=== PATIENT | female | born 1940 | race Caucasian/White ===

== ENCOUNTER 2017-08-20 15:56 | Outpatient (RCR) | payer MEDICARE, SELFPAY | END 2017-08-27 23:59 | LOC: DC 15:56 | PROVIDERS: Family Provider Internal Medicine; PCP Internal Medicine; Visit Provider Podiatrist Foot & Ankle Surgery | DX: E11.9 Type 2 diabetes mellitus without complications (principal); Z71.3 Dietary counseling and surveillance | CPT/HCPCS: G0109 ==

== ENCOUNTER 2017-10-30 15:52 | Outpatient (RCR) | payer MEDICARE, SELFPAY ==
[2017-10-30 17:00] LABS: International Normalized Ratio 2.3
[2017-10-30 17:07] LABS: AST(SGOT) 31 U/L (15-37); Alanine Aminotransfer ALT/SGPT 30 U/L (13-56); Albumin, Serum 3.1 g/dL (3.2-5.0); Alkaline Phosphatase 157 U/L (45-117); Bilirubin, Direct 0.15 mg/dL (0.00-0.30); Cholesterol 140 mg/dL (200); Globulin 4.1 g/dL (2.2-4.2); High Density Lipoprotein 38 mg/dL; Protein, Total 7.2 g/dL (6.4-8.2); Triglycerides 190 mg/dL; Very Low Density Lipoprotein 38 mg/dL (5-40)
== END 2017-10-30 16:00 | disposition home or self-care (01) ==
LOC: LAB 15:52
PROVIDERS: Family Provider Internal Medicine; PCP Internal Medicine; Visit Provider Internal Medicine Cardiovascular Disease
DX: Z95.2 Presence of prosthetic heart valve (principal); Z79.899 Other long term (current) drug therapy
CPT/HCPCS: 36415; 80061; 80076; 85610

== ENCOUNTER → 2017-10-31 10:28 | Outpatient (CLI) | payer MEDICARE, SELFPAY | PROVIDERS: Family Provider Internal Medicine; PCP Internal Medicine; Visit Provider Internal Medicine Cardiovascular Disease | DX: I25.10 Atherosclerotic heart disease of native coronary artery without angina pectoris (principal); R00.1 Bradycardia, unspecified | CPT/HCPCS: 93225; 93226 ==

== ENCOUNTER → 2017-11-25 15:00 | Outpatient (CLI) | payer MEDICARE, SELFPAY ==
[2017-11-25 15:31] LABS: Prothrombin Time Fingerstick 30.4 SEC (11.9-14.4)
== END ==
PROVIDERS: Family Provider Internal Medicine; PCP Internal Medicine; Visit Provider Internal Medicine Cardiovascular Disease
DX: Z95.2 Presence of prosthetic heart valve (principal)
CPT/HCPCS: 36416; 85610

== ENCOUNTER → 2017-12-01 09:21 | Outpatient (CLI) | payer MEDICARE, SELFPAY ==
[2017-12-01 10:05] LABS: Absolute Lymphocyte Count 0.93 X10^3/ul (0.83-4.51); Absolute Neutrophil Count 4.6 X10^3/uL (2.0-7.7); Basophil# 0.04 X10^3/uL; Basophil% 0.6 % (0-1); Eosinophil# 0.41 X10^3/uL; Eosinophils% 6.3 % (0-5); Hematocrit 36.3 % (37-47); Hemoglobin 11.8 g/dl (12.0-15.0); Lymphocyte # 0.93 X10^3/ul (4.0); Lymphocyte % 14.3 % (19-41); Mean Corp Hgb Conc 32.5 g/gl (32-36); Mean Corpuscular Hgb 26.5 pg (27.0-32.0); Mean Corpuscular Volume 81.4 fL (81-99); Mean Platelet Vol. 10.7 fl (6.2-12.0); Monocyte# 0.49 X10^3/uL; Monocyte% 7.5 % (0-10); Neutrophil # 4.63 X10^3/uL (2.7-7.7); Neutrophil % 71.3 % (47-70); Platelet Count 177 K/mm3 (150-450); RBC Distribution Width CV 15.7 % (11.6-14.6); RBC Distribution Width SD 46.1 fl (35.1-43.9); Red Blood Count 4.46 M/mm3 (4.2-5.4); White Blood Count 6.5 K/mm3 (4.4-11.0)
[2017-12-01 10:15] LABS: POSITIVE COUNT NO; POSITIVE DIFFERENTIAL NO; POSITIVE MORPHOLOGY NO
[2017-12-01 10:25] LABS: Protein, Urine (Random) 22.8 mg/dL (<11.9); Protein:Creat Ratio 270 mg/g CRE (0-200)
[2017-12-01 10:43] LABS: PTHIN 163.1 pg/mL (18.4-80.1)
[2017-12-01 10:49] LABS: Anion Gap 7 (5-15); BUN 60 mg/dL (7-18); BUN/Creat Ratio 24.4 RATIO (10-20); Calcium,Total 8.7 mg/dL (8.5-10.1); Chloride 106 mmol/L (98-107); Creatinine, Serum 2.46 mg/dL (0.55-1.02); EST Glomerular Filtration Rate 20 mL/min (>60); Est Glom Filt Rate - Afr Amer 25 mL/min (>60); Glucose 112 mg/dL (74-106); Magnesium 2.4 mg/dL (1.6-2.6); Potassium 4.3 mmol/L (3.5-5.1); Sodium Level 141 mmol/L (136-145)
[2017-12-01 11:00] LABS: Albumin, Serum 3.5 g/dL (3.2-5.0); BUN 59 mg/dL (7-18); BUN/Creat Ratio 24.5 RATIO (10-20); Calcium,Total 8.4 mg/dL (8.5-10.1); Chloride 107 mmol/L (98-107); Creatinine, Serum 2.41 mg/dL (0.55-1.02); EST Glomerular Filtration Rate 21 mL/min (>60); Est Glom Filt Rate - Afr Amer 25 mL/min (>60); Glucose 112 mg/dL (74-106); Potassium 4.3 mmol/L (3.5-5.1); Sodium Level 142 mmol/L (136-145)
== END ==
PROVIDERS: Internal Medicine Cardiovascular Disease; Family Provider Internal Medicine; PCP Internal Medicine; Visit Provider Internal Medicine Nephrology
DX: E11.22 Type 2 diabetes mellitus with diabetic chronic kidney disease (principal); N18.4 Chronic kidney disease, stage 4 (severe); N25.81 Secondary hyperparathyroidism of renal origin
CPT/HCPCS: 36415; 80048; 80069; 82570; 83735; 83970; 84156; 85025

== ENCOUNTER → 2017-12-01 12:14 | Outpatient (CLI) | payer MEDICARE, SELFPAY ==
--- NOTE | 2017-12-01 12:15 | ECHOD_ITS ---
Reason For Study: Dyspnea/SOB Procedure This was a 2D Doppler, Color Flow transthoracic echocardiogram. Exam performed in department. Left Ventricle Normal LV size. Moderate concentric left ventricular hypertrophy. D shaped septum in systole and diastole. Left ventricular systolic function is normal. The estimated ejection fraction is 60 %. Unable to assess diastolic dysfunction. No regional wall motion abnormalities noted. Right Ventricle Normal RV size. Normal systolic function. Atria The left atrium is mildly enlarged. Normal right atrium. Mitral Valve Stable appearing bioprosthetic mitral valve apparatus. Tricuspid Valve Normal tricuspid valve. Moderately severe (3+) tricuspid valve insufficiency. Pulmonary artery systolic pressure is 80 mmHg. Severe pulmonary hypertension. Aortic Valve Trisinus/trileaflet aortic valve. Mild focal aortic valve calcification. Pulmonic Valve Normal pulmonic valve. Mild-Moderate (1-2+) pulmonic valve insufficiency. Great Vessels Normal aortic root. The pulmonary artery is normal size. Inferior vena cava collapse with sniff. Pericardium/Pleural No pericardial effusion. MMode/2D Measurements & Calculations LVIDd: 4.1 cm IVSd: 1.6 cm Ao root diam: 3.0 cm LVIDs: 2.1 cm LVPWd: 1.4 cm RVDd: 3.5 cm FS: 47.5 % LAV(MOD-sp4): 83.1 ml LA A4 area: 24.4 cm2 RA A4 area: 20.8 cm2 Doppler Measurements & Calculations Lat Peak E' Mayito: 5.9 cm/sec Med Peak E' Mayito: 4.7 cm/sec MV V2 max: 255.4 cm/sec MV max P.1 mmHg MV V2 mean: 101.5 cm/sec MV mean P.9 mmHg MV V2 VTI: 76.1 cm MV P1/2t max mayito: 255.4 cm/sec Ao V2 max: 187.1 cm/sec LV V1 max: 108.3 cm/sec MV P1/2t: 99.9 msec Ao max P.0 mmHg LV V1 max P.7 mmHg MV dec slope: 749.0 cm/sec2 Ao V2 mean: 112.3 cm/sec LV V1 mean P.3 mmHg MVA(P1/2t): 2.2 cm2 Ao mean P.0 mmHg LV V1 mean: 71.1 cm/sec Ao V2 VTI: 43.7 cm LV V1 VTI: 27.6 cm TR max mayito: 433.9 cm/sec TR max P.3 mmHg Interpretation Summary Normal LV size. Moderate concentric left ventricular hypertrophy. D shaped septum in systole and diastole. Left ventricular systolic function is normal. The estimated ejection fraction is 60 %. Unable to assess diastolic dysfunction. Severe pulmonary hypertension. Compared to prior study, there is no significant change. Ordering Physician: Beto Dennis Referring Physician: Beto Dennis Performed By: Levon Fernandez RCS
== END ==
PROVIDERS: Family Provider Internal Medicine; PCP Internal Medicine; Visit Provider Internal Medicine Cardiovascular Disease
DX: I48.0 Paroxysmal atrial fibrillation (principal); E11.22 Type 2 diabetes mellitus with diabetic chronic kidney disease; N18.4 Chronic kidney disease, stage 4 (severe); N25.81 Secondary hyperparathyroidism of renal origin
CPT/HCPCS: 36415; 80048; 80069; 82570; 83735; 83970; 84156; 85025; 93306

== ENCOUNTER → 2017-12-23 08:00 | Outpatient (CLI) | payer MEDICARE, SELFPAY ==
[2017-12-23 14:58] LABS: Hemoglobin 11.1 g/dl (12.0-15.0); Mean Corp Hgb Conc 31.7 g/gl (32-36); Mean Corpuscular Hgb 26.1 pg (27.0-32.0); Mean Corpuscular Volume 82.4 fL (81-99); Mean Platelet Vol. 10.2 fl (6.2-12.0); Platelet Count 153 K/mm3 (150-450); RBC Distribution Width CV 15.9 % (11.6-14.6); RBC Distribution Width SD 48.3 fl (35.1-43.9); Red Blood Count 4.25 M/mm3 (4.2-5.4); White Blood Count 5.8 K/mm3 (4.4-11.0)
[2017-12-23 15:00] LABS: Scan Indicated on CBC? Y/N NO
[2017-12-23 15:02] LABS: Protein, Urine (Random) 18.2 mg/dL (<11.9); Protein:Creat Ratio 655 mg/g CRE (0-200)
[2017-12-23 15:32] LABS: Albumin, Serum 3.5 g/dL (3.2-5.0); BUN 49 mg/dL (7-18); BUN/Creat Ratio 18.6 RATIO (10-20); Calcium,Total 8.4 mg/dL (8.5-10.1); Chloride 103 mmol/L (98-107); Creatinine, Serum 2.63 mg/dL (0.55-1.02); EST Glomerular Filtration Rate 19 mL/min (>60); Est Glom Filt Rate - Afr Amer 23 mL/min (>60); Glucose 214 mg/dL (74-106); Phosphorus 3.2 mg/dL (2.5-4.9); Potassium 4.2 mmol/L (3.5-5.1); Sodium Level 137 mmol/L (136-145)
[2017-12-24 08:33] LABS: PTHIN 164.6 pg/mL (18.4-80.1)
== END ==
PROVIDERS: Family Provider Internal Medicine; PCP Internal Medicine; Visit Provider Internal Medicine Nephrology
DX: D64.9 Anemia, unspecified (principal); N17.9 Acute kidney failure, unspecified; N25.81 Secondary hyperparathyroidism of renal origin; E11.22 Type 2 diabetes mellitus with diabetic chronic kidney disease; N18.4 Chronic kidney disease, stage 4 (severe)
CPT/HCPCS: 36415; 80069; 82570; 83970; 84156; 85027

== ENCOUNTER 2017-12-23 14:03 | Outpatient (RCR) | payer MEDICARE, SELFPAY | END 2017-12-23 15:00 | disposition home or self-care (01) | LOC: LAB 14:03 | PROVIDERS: Family Provider Internal Medicine; PCP Internal Medicine; Visit Provider Internal Medicine Cardiovascular Disease | DX: Z95.2 Presence of prosthetic heart valve (principal) ==

== ENCOUNTER 2018-01-07 16:32 | Outpatient (RCR) | payer MEDICARE, SELFPAY ==
[2017-06-28 21:01] VITALS: BP 172/103
[2017-07-02 06:49] VITALS: BP 175/56; BP 176/70; BP 177/70
[2017-07-17 11:33] VITALS: BP 122/60; BMI 31.3
== END 2018-01-24 23:59 ==
LOC: DC 16:32
PROVIDERS: Family Provider Internal Medicine; PCP Internal Medicine; Visit Provider Podiatrist Foot & Ankle Surgery
DX: E11.9 Type 2 diabetes mellitus without complications (principal); Z71.3 Dietary counseling and surveillance
CPT/HCPCS: G0109

== ENCOUNTER 2018-01-07 20:55 | Observation (INO) | payer MEDICARE, SELFPAY ==
[2018-01-07 20:56] VITALS: BP 172/86; PULSE 99; RESP 22; TEMP 36.8; O2SAT 99; BMI 30.1
[2018-01-07 21:00] VITALS: BP 171/96; PULSE 100
[2018-01-07 21:10] LABS: Bedside Glucose 322 mg/dL (70-110)
--- NOTE | 2018-01-07 21:29 | EKG12_ITS ---
Test Reason : SYNCOPE Blood Pressure : / mmHG Vent. Rate : 099 BPM Atrial Rate : 059 BPM P-R Int : 000 ms QRS Dur : 100 ms QT Int : 408 ms P-R-T Axes : 000 117 063 degrees QTc Int : 523 ms Normal sinus rhythm Rightward axis Poor R wave progression Nonspecific ST segment abnormality Confirmed by SAJAN IZAGUIRRE, KENDRICK ([id number]), book or script editor ASUNCION BROWNLEE ([id number]) on 01/09/2018 2:49:05 PM Referred By: Hoang Kumar Confirmed By:KENDRICK MOELLER MD
--- NOTE | 2018-01-07 21:30 | RAD_ITS ---
STUDY: X-RAY CHEST REASON FOR EXAM: Female, 77 years old. Syncope TECHNIQUE: Frontal and lateral views of the chest COMPARISON: 06/28/2017 FINDINGS: The lungs are clear. There are no pleural effusions. There is no pneumothorax. The heart is enlarged, but stable. The patient is status post sternotomy. RAD/Chest PA and Lateral IMPRESSION: No acute thoracic pathology. Electronically Signed: Kole Rader, at 22:38 EDT Tel , Service support ,
[2018-01-07] MEDS: Ondansetron 4 MG/2 ML Vial IV (21:37)
[2018-01-07] MEDS: 0.9% Normal Saline 1,000 ML 125 ML IV (21:37)
[2018-01-07 21:44] LABS: Absolute Lymphocyte Count 1.22 X10^3/ul (0.83-4.51); Absolute Neutrophil Count 3.6 X10^3/uL (2.0-7.7); Basophil# 0.04 X10^3/uL; Basophil% 0.7 % (0-1); Eosinophil# 0.24 X10^3/uL; Eosinophils% 4.5 % (0-5); Hematocrit 36.1 % (37-47); Hemoglobin 11.8 g/dl (12.0-15.0); Lymphocyte # 1.22 X10^3/ul (4.0); Lymphocyte % 22.6 % (19-41); Mean Corp Hgb Conc 32.7 g/gl (32-36); Mean Corpuscular Hgb 26.2 pg (27.0-32.0); Mean Corpuscular Volume 80.2 fL (81-99); Mean Platelet Vol. 10.3 fl (6.2-12.0); Monocyte# 0.27 X10^3/uL; Neutrophil # 3.62 X10^3/uL (2.7-7.7); Neutrophil % 67.2 % (47-70); POSITIVE COUNT NO; POSITIVE DIFFERENTIAL NO; POSITIVE MORPHOLOGY NO; Platelet Count 169 K/mm3 (150-450); RBC Distribution Width CV 15.3 % (11.6-14.6); White Blood Count 5.4 K/mm3 (4.4-11.0)
[2018-01-07 21:58] LABS: ALB/GLOB Ratio 0.8 RATIO (0.9-2.4); AST(SGOT) 42 U/L (15-37); Alanine Aminotransfer ALT/SGPT 30 U/L (13-56); Albumin, Serum 3.3 g/dL (3.2-5.0); Alkaline Phosphatase 156 U/L (45-117); Anion Gap 12 (5-15); BUN 40 mg/dL (7-18); BUN/Creat Ratio 17.3 RATIO (10-20); Calcium,Total 8.3 mg/dL (8.5-10.1); Chloride 103 mmol/L (98-107); Creatinine, Serum 2.31 mg/dL (0.55-1.02); EST Glomerular Filtration Rate 22 mL/min (>60); Est Glom Filt Rate - Afr Amer 26 mL/min (>60); Estimated Creatinine Clearance 17.14 ml/min; Globulin 4.3 g/dL (2.2-4.2); Glucose 303 mg/dL (74-106); Protein, Total 7.6 g/dL (6.4-8.2); Sodium Level 137 mmol/L (136-145)
[2018-01-07 22:04] VITALS: BP 149/86; PULSE 97; RESP 21; O2SAT 94
[2018-01-07 22:23] LABS: Mucous, Urine 0 SEEN /hpf (<or=2+); Red Blood Cells-Urine 0 SEEN /hpf (0-5)
[2018-01-07 22:26] LABS: Color, Urine Yellow (Yellow); Glucose, Dipstick 1000 mg/dl (Normal); Ketone-Dipstick Negative (Negative); Leukocyte Esterase-Dipstick 100 /ul (Negative); Nitrite-Dipstick Positive (Negative); Occult Blood-Urine 10 /ul (Negative); Protein-Dipstick 30 mg/dl (Negative); Urine Bilirubin Dipstick Negative (Negative); Urine Clarity Sl. Cloudy (Clear); Urine Urobilinogen Normal (Normal)
[2018-01-07 22:41] LABS: Bacteria 1+ /hpf (None Seen); Squamous Epithelial Cells - UA 0-5 SEEN /hpf (5-10); White Blood Cells 10-25 SEEN /hpf (0-5)
[2018-01-07 23:06] VITALS: BP 152/96; PULSE 95; RESP 25; TEMP 36.8; O2SAT 93
[2018-01-07 23:09] VITALS: BP 155/93; PULSE 97; RESP 15; O2SAT 94
[2018-01-08] VITALS (13 sets, daily range): BP systolic 123–168; BP diastolic 66–96; PULSE 82–112; RESP 16–20; TEMP 36.6–36.8; O2SAT 92–98; BMI 31.1; BMI 31.2
[2018-01-08] MEDS: Cephalexin 250 MG Capsule 500 MG PO (00:26)
[2018-01-08 00:50] LABS: International Normalized Ratio 2.1; Prothrombin Time (Protime)PT. 23.5 SECONDS (11.7-14.9)
--- NOTE | 2018-01-08 00:56 | ED.DCSUM_ITS ---
- ER Visit Summary Date of Service: 01/08/18 Chief Complaint: [Syncope] History of Present Illness: The patient is a 77 F [presents the emergency department with syncope. She was mowing the grass when approximately 100 feet and felt very dizzy and nauseated. She sat down on a rock. A neighbor saw her lose consciousness. They came over and alerted the . He came out to find her unresponsive. He did not think she was breathing so started CPR. The neighbor called EMS by the time EMS arrived she was alert and oriented but still very nauseated pale and feeling poorly. She felt slightly short of breath. No chest pain. She does have a history of mitral valve replacement and is on Coumadin. She additionally has some tricuspid valve dysfunction.] Physical Examination: [] WN WD NAD Delvis PERRL EOMI MMM NECK supple and nontender, no masses RRR no murmur rub or gallop, no peripheral edema, symmetric radial pulses CTAB no respiratory distress ABDOMEN is soft and nontender, normal bowel sounds, no distension, no rebound or guarding SKIN is warm and dry no rashes Alert and Oriented x3, CN II-XII in tact, no motor or sensory deficits, diffusely weak No lymphadenopathy Test Results: [] Emergency Department Course and Treatment: [KG is a junctional rhythm accelerated at 99 rate. There are nonspecific ST segment changes. Screening labs show mild anemia at 11.8. INR is pending. Patient has chronic kidney disease. Because of her prolonged period of syncope her history of valve disease and her age I do think she requires admission. She does have a UTI culture was sent she was treated with Keflex. She did continue to improve while in the emergency department] Treatment Plan: [] Disposition: [Admit] Impression: [Syncope] This note was generated with [employer] dictation software. It may contain incorrect words, spelling, and punctuation that were not noted in review of the chart prior to signing ED Disposition - Plan for ED Patient: Chief Complaint: Syncope Referrals: Jovana Moulton MD [Primary Care Provider] -
--- NOTE | 2018-01-08 01:06 | PCM.HP.STD ---
Problem List (1) Syncope Status: Acute (2) UTI (urinary tract infection) Status: Acute History of Present Illness Date of Admission: 01/08/18 Chief Complaint: syncope The patient is a 77 year old F who is in normal state of health today tried to mow her lawn push Cruz was first time that she is done so in several years. Patient felt that she could do it as she was out weeding and when she is doing she just felt very weak and then passed out. Patient's was notified by the neighbor and did not hear breathing and did not hear when he put his ear to his chest her heart beating and I gave her a couple breaths and patient started breathing immediately and then to some chest compressions. EMS was called and patient brought to the hospital. Workup in the hospital was unremarkable except for patient had appeared to have a urinary tract infection on urinalysis and received Keflex. [] Past Medical History Past Medical History (Chronic Problems): Chronic Problems (Last Reviewed 11/25/17 @ 15:49 by Beto Dennis MD) S/P CABG x 1 (Chronic) 09/29/2014 CABG: SVG to distal LAD [facility] per Dr. Miller History of maze procedure (Chronic) 09/29/2014 atricure pulmonary vein isolation MAZE with ligation of left atrial appendage per Dr. Angela Alexis History of mitral valve replacement with bioprosthetic valve (Chronic) 09/29/2014: MVR with 27 mm Medtronic tisue valve per Dr. Angela Alexis alf (current) use of anticoagulants (Chronic) CAD (coronary artery disease) (Chronic) Atrial fibrillation (Chronic) Hyperlipidemia (Chronic) Hypertension (Chronic) resistant HTN Cerebrovascular disease (Chronic) ischemic stroke w hemorrhagic transformation in the setting of coumadin anticoagulation Anemia (Chronic) Depression (Chronic) CRF (chronic renal failure) (Chronic) Anticoagulation goal of INR 2 to 3 (Chronic) Diabetes mellitus type II, uncontrolled (Chronic) Stroke with left visual deficit (Chronic) Chronic diastolic heart failure (Chronic) Pulmonary hypertension (Chronic) MAGALI (obstructive sleep apnea) (Chronic) on CPAP Medical History: Medical History (Last Updated 01/08/18 @ 01:09 by Mark Ruggiero DO) CAD (coronary artery disease) (Chronic) I25.10 Atrial fibrillation (Chronic) I48.91 Hyperlipidemia (Chronic) E78.5 Hypertension (Chronic) I10 resistant HTN Cerebrovascular disease (Chronic) I67.9 ischemic stroke w hemorrhagic transformation in the setting of coumadin anticoagulation Anemia (Chronic) D64.9 CRF (chronic renal failure) (Chronic) N18.9 Anticoagulation goal of INR 2 to 3 (Chronic) Z51.81, Z79.01 Diabetes mellitus type II, uncontrolled (Chronic) E11.65 Edema of both legs (Acute) R60.0 Type 2 diabetes mellitus without complications (Acute) E11.9 Syncope (Acute) R55 Possible TIA/stroke (Acute) Stroke with left visual deficit (Chronic) Chronic diastolic heart failure (Chronic) I50.32 Pulmonary hypertension (Chronic) I27.20 MAGALI (obstructive sleep apnea) (Chronic) G47.33 on CPAP Pulmonary hypertension, moderate to severe I27.20 Allergies dronedarone HCl [From Multaq] Allergy (Verified 01/07/18 21:00) Other unable to breath quinapril [From Accupril] Adverse Reaction (Severe, Verified 01/07/18 21:00) near syncope cortisone Adverse Reaction (Intermediate, Verified 01/07/18 21:00) swelling hydralazine Adverse Reaction (Intermediate, Verified 01/07/18 21:00) weakness Beta-Blockers (Beta-Adrenergic Bloc Adverse Reaction (Verified 01/07/18 21:00) Other WHEEZING prednisone Adverse Reaction (Verified 01/07/18 21:00) Swelling CARDURA Allergy (Uncoded 01/07/18 21:00) Other PT NOT SURE- POSSIBLE SWELLING NORVASC Allergy (Uncoded 01/07/18 21:00) Swelling SCALLOPS Allergy (Uncoded 01/07/18 21:00) Swelling SULFA Allergy (Uncoded 01/07/18 21:00) Other SPOTS IN MOUTH/SORE MOUTH ATIVAN Adverse Reaction (Uncoded 01/07/18 21:00) Other HALLUCINATIONS METATOPOLOL TARTATE Adverse Reaction (Uncoded 01/07/18 21:00) Other Home Medications: Ambulatory Orders Medication Instructions Recorded Multivit-Min/FA/Lycopene/Lut 1 ea PO DAILY 05/17/14 [Centrum Silver Tablet] Acetaminophen [Tylenol Tablet] 650 mg PO Q6H PRN PRN #0 tab 09/15/14 Insulin Aspart [Novolog Flexpen] 10 units SC TID 09/20/14 Albuterol Inhaler [Ventolin Hfa] 2 puff INHALATION Q4H PRN PRN #1 10/27/14 inhaler Calcitriol [Rocaltrol] 0.25 mcg PO MOWEFR 01/16/17 Fluticasone/Salmeterol [Advair 1 puff INHALATION BID PRN 01/16/17 250/50 Mcg Diskus] Lisinopril [Zestril] 20 mg PO DAILY 01/16/17 insulin glargine (U-100) 100 See Label Instructions SC BID 07/15/17 unit/mL (3 mL) subcutaneous pen warfarin 2 mg tablet 2 mg PO .COMPLEX tab 07/17/17 levothyroxine 88 mcg capsule 88 mcg PO DAILY cap 11/25/17 nifedipine ER 30 mg 30 mg PO QDAY #90 tab 11/25/17 tablet,extended release potassium chloride ER 10 mEq 10 meq PO QDAY 11/25/17 capsule,extended release Amiodarone HCl 100 mg PO BID 01/07/18 Aspirin E.C. [Ecotrin] 81 mg PO QHS 01/07/18 Cholecalciferol (Vitamin D3) 1,000 unit PO QHS 01/07/18 [Vitamin D3] Furosemide [Lasix] 40 mg PO .COMPLEX 01/07/18 Surgical History: Surgical History (Last Reviewed 01/08/18 @ 01:09 by Mark Ruggiero DO) S/P CABG x 1 (Chronic) Z95.1 09/29/2014 CABG: SVG to distal LAD [facility] per Dr. Miller History of maze procedure (Chronic) Z98.890 09/29/2014 atricure pulmonary vein isolation MAZE with ligation of left atrial appendage per Dr. Angela Alexis History of mitral valve replacement with bioprosthetic valve (Chronic) Z95.3 09/29/2014: MVR with 27 mm Medtronic tisue valve per Dr. Angela Alexis History of PTCA Z98.61 angioplasty with moderate in-stent stenosis of the proximal LAD History of hysterectomy Z90.710 Surgical History: cataract, - Smoking Status: Never smoker - *Family History Maternal Family History: Family History (Last Reviewed 01/08/18 @ 01:10 by Mark Ruggiero DO) Father CAD (coronary artery disease) Hypertension Myocardial infarction Sudden cardiac Hyperlipidemia Mother Breast cancer Brother Cancer Sister Breast cancer Hyperlipidemia Sister Hyperlipidemia History Items: Cancer Paternal Family History: Family History (Last Reviewed 01/08/18 @ 01:10 by Mark Ruggiero DO) Father CAD (coronary artery disease) Hypertension Myocardial infarction Sudden cardiac Hyperlipidemia Mother Breast cancer Brother Cancer Sister Breast cancer Hyperlipidemia Sister Hyperlipidemia History Items: Heart Disease, Stroke Sibling Family History: Family History (Last Reviewed 01/08/18 @ 01:10 by Mark Ruggiero DO) Father CAD (coronary artery disease) Hypertension Myocardial infarction Sudden cardiac Hyperlipidemia Mother Breast cancer Brother Cancer Sister Breast cancer Hyperlipidemia Sister Hyperlipidemia History Items: Cancer - in brother and sister Review of Systems Constitutional: Denies: Anorexia, Chills, Fever Eyes: Denies: Blurred vision, Double vision HEENT: Denies: Head Aches, Sinus Congestion, Sinus Drainage Cardiovascular: Reports: Edema. Denies: Chest Pain, Palpitations Respiratory: Denies: Cough, Shortness of breath at rest, Sputum production Gastrointestinal: Reports: Nausea. Denies: Abdominal Pain, Vomiting Genitourinary: Denies: Dysuria Musculoskeletal: Denies: Joint Pain, Joint Tenderness Skin: Reports: Wounds - Patient wound on her right arm from doing some yard work and caught on some thistles. Denies: Rash Neurological: Denies: Numbness, Tingling, Focal weakness Psychiatric: Denies: Anxiety, Depression Hematologic/ Lymphatic: Denies: Easy Bruising, Easy Bleeding, Hx of blood clot VTE Information - Inpt Only VTE Present on Admission: No Patient Problems: Active and Suspected Problems (Last Reviewed 11/25/17 @ 15:49 by Beto Dennis MD) Syncope (Acute) UTI (urinary tract infection) (Acute) - Physical Exam General: Alert, Cooperative, No apparent distress HEENT: Atraumatic, Normocephalic Oral: Moist Mucosa, No Gingival or Mucosal Lesions/ Ulcerations Neck: No Nodes, Thyroid Normal Size and Texture, JVD, Bilateral Lungs: Clear to auscultation, Normal air movement, No rhonchi, No wheeze Cardiovascular: Regular rate, Regular Rhythm, Normal S1, Normal S2, No murmurs Abdomen: Bowel Sounds Present, Soft, Non Tender, Non-Distended, No Hepato-splenomegaly Extremities: No Calf Tenderness, Edema - Trace Skin: - - Superficial lesion on right anterior arm with the some slight erythema surrounding its but not warm. Venous stasis dermatitis of bilateral lower extremities Musculoskeletal: No Tenderness to Palpation of Joints or Extremities, No Muscle Wasting Psych/Mental Status: Normal Affect, Appropriate Vital Signs Temp Pulse Resp BP Pulse Ox 36.8 C 96 16 152/96 H 98 01/07/18 23:06 01/08/18 00:52 01/08/18 00:52 01/08/18 00:52 01/08/18 00:52 Oxygen Delivery Method Room Air Weight: 77.111 kg Body Mass Index (BMI) 30.1 Finger Stick Blood Glucose 257 Laboratory Tests Past 24 Hrs 01/07/18 01/07/18 01/07/18 21:05 21:05 21:05 WBC 5.4 RBC 4.50 Hgb 11.8 L Hct 36.1 L MCV 80.2 L MCH 26.2 L MCHC 32.7 RDW 15.3 H RDW Differential 45.0 H Plt Count 169 MPV 10.3 Immature Gran % (Auto) 0.000 Neut % (Auto) 67.2 Lymph % (Auto) 22.6 Hitchcock % (Auto) 5.0 Eos % (Auto) 4.5 Baso % (Auto) 0.7 Absolute Neuts (auto) 3.6 Absolute Lymphs (auto) 1.22 Total Counted Not Reportable PT 23.5 H INR 2.1 Sodium 137 Potassium 4.0 Chloride 103 Carbon Dioxide 22.0 Anion Gap 12 BUN 40 H Creatinine 2.31 H Estim Creat Clear Calc 17.14 Est GFR (MDRD) Af Amer 26 L Est GFR (MDRD) Non-Af 22 L BUN/Creatinine Ratio 17.3 Glucose 303 H Calcium 8.3 L Total Bilirubin 0.30 AST 42 H ALT 30 Alkaline Phosphatase 156 H Troponin I < 0.015 Total Protein 7.6 Albumin 3.3 Globulin 4.3 H Albumin/Globulin Ratio 0.8 L Urine Color Urine Clarity Urine pH Ur Specific [place] Urine Protein Urine Glucose (UA) Urine Ketones Urine Occult Blood Urine Nitrite Urine Bilirubin Urine Urobilinogen Ur Leukocyte Esterase Urine RBC Urine WBC Ur Squamous Epith Cells Urine Bacteria Urine Mucus 01/07/18 22:15 WBC RBC Hgb Hct MCV MCH MCHC RDW RDW Differential Plt Count MPV Immature Gran % (Auto) Neut % (Auto) Lymph % (Auto) Hitchcock % (Auto) Eos % (Auto) Baso % (Auto) Absolute Neuts (auto) Absolute Lymphs (auto) Total Counted PT INR Sodium Potassium Chloride Carbon Dioxide Anion Gap BUN Creatinine Estim Creat Clear Calc Est GFR (MDRD) Af Amer Est GFR (MDRD) Non-Af BUN/Creatinine Ratio Glucose Calcium Total Bilirubin AST ALT Alkaline Phosphatase Troponin I Total Protein Albumin Globulin Albumin/Globulin Ratio Urine Color Yellow Urine Clarity Sl. Cloudy Urine pH 7.0 Ur Specific [place] 1.010 Urine Protein 30 H Urine Glucose (UA) 1000 H Urine Ketones Negative Urine Occult Blood 10 H Urine Nitrite Positive H Urine Bilirubin Negative Urine Urobilinogen Normal Ur Leukocyte Esterase 100 H Urine RBC 0 SEEN Urine WBC 10-25 SEEN Ur Squamous Epith Cells 0-5 SEEN Urine Bacteria 1+ Urine Mucus 0 SEEN POC Glucose 01/07/18 21:03 POC Glucose 322 H Clinical Impression(s) from Imaging Studies Chest X-Ray 01/07/18 21:30 IMPRESSION: No acute thoracic pathology. Electronically Signed: Kole Dior, at 22:38 EDT Tel , Service support , Assessment/Plan All Active Problems (Last Reviewed 11/25/17 @ 15:49 by Beto Dennis MD) Syncope (Acute) UTI (urinary tract infection) (Acute) Bradycardia (Acute) Edema of both legs (Acute) Dermatitis of lower extremity (Acute) Type 2 diabetes mellitus without complications (Acute) Syncope (Acute) Possible TIA/stroke (Acute) Hemorrhagic stroke (Resolved) 1. Syncope I suspect vasovagal to the fact the patient was doing an activity with more exertion that she has typically done in years plus having a urinary tract infection plus the patient's other medical comorbidities. Will monitor the patient overnight seizures any events but if not then anticipate patient be discharged. 2. UTI Given patient's chronic kidney disease plus amiodarone use and Coumadin use would continue with Keflex for now 3. Severe pulmonary hypertension This is been noted on echocardiogram from December 01 Is likely due to group 3 from sleep apnea but cannot rule out group to either given patient's underlying cardiac disease. Explained to patient in great detail that I will feel that was a cause of her passing out but certainly is a contributing factor and I did impress upon her to follow-up with pulmonology in regards to her CPAP usage. Patient states that she uses her CPAP all time but then did state that she takes it off in the middle night. Question of the patient may benefit from BiPAP but would defer that to an outpatient basis. 4. Chronic kidney disease stage III Appears to be stable. Follow-up with nephrology as outpatient 5. DVT prophylaxis: Patient is anticoagulated on Coumadin 6. Advanced care planning: Discussed CPR, mechanical ventilation and PEG tube. Patient would want all these procedures if necessary. Therefore, the patient is full CODE STATUS. 7. Right upper extremity lesion Per the patient this was related with some gardening that she was doing. I do not appreciate any cellulitis at this time. Patient states that she put some hydrocortisone cream on it. I told her to avoid that as it can impair the healing. I advised just local care and his coverage and if patient is can he is not some kind of salve to use Aquaphor or Vaseline. Has been asked specifically about Neosporin I advised against it as it can cause contact dermatitis. Code Visit OBSV E&M: [id number] Initial observation care L3
--- NOTE | 2018-01-08 01:17 | HP.PCM_ITS ---
Problem List (1) Syncope Status: Acute (2) UTI (urinary tract infection) Status: Acute History of Present Illness Date of Admission: 01/08/18 Chief Complaint: syncope The patient is a 77 year old F who is in normal state of health today tried to mow her lawn push Cruz was first time that she is done so in several years. Patient felt that she could do it as she was out weeding and when she is doing she just felt very weak and then passed out. Patient's was notified by the neighbor and did not hear breathing and did not hear when he put his ear to his chest her heart beating and I gave her a couple breaths and patient started breathing immediately and then to some chest compressions. EMS was called and patient brought to the hospital. Workup in the hospital was unremarkable except for patient had appeared to have a urinary tract infection on urinalysis and received Keflex. [] Past Medical History Past Medical History (Chronic Problems): Chronic Problems (Last Reviewed 11/25/17 @ 15:49 by Beto Dennis MD) S/P CABG x 1 (Chronic) 09/29/2014 CABG: SVG to distal LAD [facility] per Dr. Miller History of maze procedure (Chronic) 09/29/2014 atricure pulmonary vein isolation MAZE with ligation of left atrial appendage per Dr. Angela Alexis History of mitral valve replacement with bioprosthetic valve (Chronic) 09/29/2014: MVR with 27 mm Medtronic tisue valve per Dr. Angela Alexis intermediate (current) use of anticoagulants (Chronic) CAD (coronary artery disease) (Chronic) Atrial fibrillation (Chronic) Hyperlipidemia (Chronic) Hypertension (Chronic) resistant HTN Cerebrovascular disease (Chronic) ischemic stroke w hemorrhagic transformation in the setting of coumadin anticoagulation Anemia (Chronic) Depression (Chronic) CRF (chronic renal failure) (Chronic) Anticoagulation goal of INR 2 to 3 (Chronic) Diabetes mellitus type II, uncontrolled (Chronic) Stroke with left visual deficit (Chronic) Chronic diastolic heart failure (Chronic) Pulmonary hypertension (Chronic) MAGALI (obstructive sleep apnea) (Chronic) on CPAP Medical History: Medical History (Last Updated 01/08/18 @ 01:09 by Mark Ruggiero DO) CAD (coronary artery disease) (Chronic) I25.10 Atrial fibrillation (Chronic) I48.91 Hyperlipidemia (Chronic) E78.5 Hypertension (Chronic) I10 resistant HTN Cerebrovascular disease (Chronic) I67.9 ischemic stroke w hemorrhagic transformation in the setting of coumadin anticoagulation Anemia (Chronic) D64.9 CRF (chronic renal failure) (Chronic) N18.9 Anticoagulation goal of INR 2 to 3 (Chronic) Z51.81, Z79.01 Diabetes mellitus type II, uncontrolled (Chronic) E11.65 Edema of both legs (Acute) R60.0 Type 2 diabetes mellitus without complications (Acute) E11.9 Syncope (Acute) R55 Possible TIA/stroke (Acute) Stroke with left visual deficit (Chronic) Chronic diastolic heart failure (Chronic) I50.32 Pulmonary hypertension (Chronic) I27.20 MAGALI (obstructive sleep apnea) (Chronic) G47.33 on CPAP Pulmonary hypertension, moderate to severe I27.20 Allergies dronedarone HCl [From Multaq] Allergy (Verified 01/07/18 21:00) Other unable to breath quinapril [From Accupril] Adverse Reaction (Severe, Verified 01/07/18 21:00) near syncope cortisone Adverse Reaction (Intermediate, Verified 01/07/18 21:00) swelling hydralazine Adverse Reaction (Intermediate, Verified 01/07/18 21:00) weakness Beta-Blockers (Beta-Adrenergic Bloc Adverse Reaction (Verified 01/07/18 21:00) Other WHEEZING prednisone Adverse Reaction (Verified 01/07/18 21:00) Swelling CARDURA Allergy (Uncoded 01/07/18 21:00) Other PT NOT SURE- POSSIBLE SWELLING NORVASC Allergy (Uncoded 01/07/18 21:00) Swelling SCALLOPS Allergy (Uncoded 01/07/18 21:00) Swelling SULFA Allergy (Uncoded 01/07/18 21:00) Other SPOTS IN MOUTH/SORE MOUTH ATIVAN Adverse Reaction (Uncoded 01/07/18 21:00) Other HALLUCINATIONS METATOPOLOL TARTATE Adverse Reaction (Uncoded 01/07/18 21:00) Other Home Medications: Ambulatory Orders Medication Instructions Recorded Multivit-Min/FA/Lycopene/Lut 1 ea PO DAILY 05/17/14 [Centrum Silver Tablet] Acetaminophen [Tylenol Tablet] 650 mg PO Q6H PRN PRN #0 tab 09/15/14 Insulin Aspart [Novolog Flexpen] 10 units SC TID 09/20/14 Albuterol Inhaler [Ventolin Hfa] 2 puff INHALATION Q4H PRN PRN #1 10/27/14 inhaler Calcitriol [Rocaltrol] 0.25 mcg PO MOWEFR 01/16/17 Fluticasone/Salmeterol [Advair 1 puff INHALATION BID PRN 01/16/17 250/50 Mcg Diskus] Lisinopril [Zestril] 20 mg PO DAILY 01/16/17 insulin glargine (U-100) 100 See Label Instructions SC BID 07/15/17 unit/mL (3 mL) subcutaneous pen warfarin 2 mg tablet 2 mg PO .COMPLEX tab 07/17/17 levothyroxine 88 mcg capsule 88 mcg PO DAILY cap 11/25/17 nifedipine ER 30 mg 30 mg PO QDAY #90 tab 11/25/17 tablet,extended release potassium chloride ER 10 mEq 10 meq PO QDAY 11/25/17 capsule,extended release Amiodarone HCl 100 mg PO BID 01/07/18 Aspirin E.C. [Ecotrin] 81 mg PO QHS 01/07/18 Cholecalciferol (Vitamin D3) 1,000 unit PO QHS 01/07/18 [Vitamin D3] Furosemide [Lasix] 40 mg PO .COMPLEX 01/07/18 Surgical History: Surgical History (Last Reviewed 01/08/18 @ 01:09 by Mark Ruggiero DO) S/P CABG x 1 (Chronic) Z95.1 09/29/2014 CABG: SVG to distal LAD [facility] per Dr. Miller History of maze procedure (Chronic) Z98.890 09/29/2014 atricure pulmonary vein isolation MAZE with ligation of left atrial appendage per Dr. Angela Alexis History of mitral valve replacement with bioprosthetic valve (Chronic) Z95.3 09/29/2014: MVR with 27 mm Medtronic tisue valve per Dr. Angela Alexis History of PTCA Z98.61 angioplasty with moderate in-stent stenosis of the proximal LAD History of hysterectomy Z90.710 Surgical History: cataract, - Smoking Status: Never smoker - *Family History Maternal Family History: Family History (Last Reviewed 01/08/18 @ 01:10 by Mark Ruggiero DO) Father CAD (coronary artery disease) Hypertension Myocardial infarction Sudden cardiac Hyperlipidemia Mother Breast cancer Brother Cancer Sister Breast cancer Hyperlipidemia Sister Hyperlipidemia History Items: Cancer Paternal Family History: Family History (Last Reviewed 01/08/18 @ 01:10 by Mark Ruggiero DO) Father CAD (coronary artery disease) Hypertension Myocardial infarction Sudden cardiac Hyperlipidemia Mother Breast cancer Brother Cancer Sister Breast cancer Hyperlipidemia Sister Hyperlipidemia History Items: Heart Disease, Stroke Sibling Family History: Family History (Last Reviewed 01/08/18 @ 01:10 by Mark Ruggiero DO) Father CAD (coronary artery disease) Hypertension Myocardial infarction Sudden cardiac Hyperlipidemia Mother Breast cancer Brother Cancer Sister Breast cancer Hyperlipidemia Sister Hyperlipidemia History Items: Cancer - in brother and sister Review of Systems Constitutional: Denies: Anorexia, Chills, Fever Eyes: Denies: Blurred vision, Double vision HEENT: Denies: Head Aches, Sinus Congestion, Sinus Drainage Cardiovascular: Reports: Edema. Denies: Chest Pain, Palpitations Respiratory: Denies: Cough, Shortness of breath at rest, Sputum production Gastrointestinal: Reports: Nausea. Denies: Abdominal Pain, Vomiting Genitourinary: Denies: Dysuria Musculoskeletal: Denies: Joint Pain, Joint Tenderness Skin: Reports: Wounds - Patient wound on her right arm from doing some yard work and caught on some thistles. Denies: Rash Neurological: Denies: Numbness, Tingling, Focal weakness Psychiatric: Denies: Anxiety, Depression Hematologic/ Lymphatic: Denies: Easy Bruising, Easy Bleeding, Hx of blood clot VTE Information - Inpt Only VTE Present on Admission: No Patient Problems: Active and Suspected Problems (Last Reviewed 11/25/17 @ 15:49 by Beto Dennis MD ) Syncope (Acute) UTI (urinary tract infection) (Acute) - Physical Exam General: Alert, Cooperative, No apparent distress HEENT: Atraumatic, Normocephalic Oral: Moist Mucosa, No Gingival or Mucosal Lesions/ Ulcerations Neck: No Nodes, Thyroid Normal Size and Texture, JVD, Bilateral Lungs: Clear to auscultation, Normal air movement, No rhonchi, No wheeze Cardiovascular: Regular rate, Regular Rhythm, Normal S1, Normal S2, No murmurs Abdomen: Bowel Sounds Present, Soft, Non Tender, Non-Distended, No Hepato- splenomegaly Extremities: No Calf Tenderness, Edema - Trace Skin: - - Superficial lesion on right anterior arm with the some slight erythema surrounding its but not warm. Venous stasis dermatitis of bilateral lower extremities Musculoskeletal: No Tenderness to Palpation of Joints or Extremities, No Muscle Wasting Psych/Mental Status: Normal Affect, Appropriate Vital Signs Temp Pulse Resp BP Pulse Ox 36.8 C 96 16 152/96 H 98 01/07/18 23:06 01/08/18 00:52 01/08/18 00:52 01/08/18 00:52 01/08/18 00:52 Oxygen Delivery Method Room Air Weight: 77.111 kg Body Mass Index (BMI) 30.1 Finger Stick Blood Glucose 257 Laboratory Tests Past 24 Hrs 01/07/18 01/07/18 01/07/18 21:05 21:05 21:05 WBC 5.4 RBC 4.50 Hgb 11.8 L Hct 36.1 L MCV 80.2 L MCH 26.2 L MCHC 32.7 RDW 15.3 H RDW Differential 45.0 H Plt Count 169 MPV 10.3 Immature Gran % (Auto) 0.000 Neut % (Auto) 67.2 Lymph % (Auto) 22.6 Holt % (Auto) 5.0 Eos % (Auto) 4.5 Baso % (Auto) 0.7 Absolute Neuts (auto) 3.6 Absolute Lymphs (auto) 1.22 Total Counted Not Reportable PT 23.5 H INR 2.1 Sodium 137 Potassium 4.0 Chloride 103 Carbon Dioxide 22.0 Anion Gap 12 BUN 40 H Creatinine 2.31 H Estim Creat Clear Calc 17.14 Est GFR (MDRD) Af Amer 26 L Est GFR (MDRD) Non-Af 22 L BUN/Creatinine Ratio 17.3 Glucose 303 H Calcium 8.3 L Total Bilirubin 0.30 AST 42 H ALT 30 Alkaline Phosphatase 156 H Troponin I < 0.015 Total Protein 7.6 Albumin 3.3 Globulin 4.3 H Albumin/Globulin Ratio 0.8 L Urine Color Urine Clarity Urine pH Ur Specific Snyder Urine Protein Urine Glucose (UA) Urine Ketones Urine Occult Blood Urine Nitrite Urine Bilirubin Urine Urobilinogen Ur Leukocyte Esterase Urine RBC Urine WBC Ur Squamous Epith Cells Urine Bacteria Urine Mucus 01/07/18 22:15 WBC RBC Hgb Hct MCV MCH MCHC RDW RDW Differential Plt Count MPV Immature Gran % (Auto) Neut % (Auto) Lymph % (Auto) Holt % (Auto) Eos % (Auto) Baso % (Auto) Absolute Neuts (auto) Absolute Lymphs (auto) Total Counted PT INR Sodium Potassium Chloride Carbon Dioxide Anion Gap BUN Creatinine Estim Creat Clear Calc Est GFR (MDRD) Af Amer Est GFR (MDRD) Non-Af BUN/Creatinine Ratio Glucose Calcium Total Bilirubin AST ALT Alkaline Phosphatase Troponin I Total Protein Albumin Globulin Albumin/Globulin Ratio Urine Color Yellow Urine Clarity Sl. Cloudy Urine pH 7.0 Ur Specific Snyder 1.010 Urine Protein 30 H Urine Glucose (UA) 1000 H Urine Ketones Negative Urine Occult Blood 10 H Urine Nitrite Positive H Urine Bilirubin Negative Urine Urobilinogen Normal Ur Leukocyte Esterase 100 H Urine RBC 0 SEEN Urine WBC 10-25 SEEN Ur Squamous Epith Cells 0-5 SEEN Urine Bacteria 1+ Urine Mucus 0 SEEN POC Glucose 01/07/18 21:03 POC Glucose 322 H Clinical Impression(s) from Imaging Studies Chest X-Ray 01/07/18 21:30 IMPRESSION: No acute thoracic pathology. Electronically Signed: Kole Dior, at 22:38 EDT Tel , Service support , Assessment/Plan All Active Problems (Last Reviewed 11/25/17 @ 15:49 by Beto Dennis MD) Syncope (Acute) UTI (urinary tract infection) (Acute) Bradycardia (Acute) Edema of both legs (Acute) Dermatitis of lower extremity (Acute) Type 2 diabetes mellitus without complications (Acute) Syncope (Acute) Possible TIA/stroke (Acute) Hemorrhagic stroke (Resolved) 1. Syncope * I suspect vasovagal to the fact the patient was doing an activity with more exertion that she has typically done in years plus having a urinary tract infection plus the patient's other medical comorbidities. * Will monitor the patient overnight seizures any events but if not then anticipate patient be discharged. 2. UTI * Given patient's chronic kidney disease plus amiodarone use and Coumadin use would continue with Keflex for now 3. Severe pulmonary hypertension * This is been noted on echocardiogram from December 01 * Is likely due to group 3 from sleep apnea but cannot rule out group to either given patient's underlying cardiac disease. * Explained to patient in great detail that I will feel that was a cause of her passing out but certainly is a contributing factor and I did impress upon her to follow-up with pulmonology in regards to her CPAP usage. Patient states that she uses her CPAP all time but then did state that she takes it off in the middle night. Question of the patient may benefit from BiPAP but would defer that to an outpatient basis. 4. Chronic kidney disease stage III * Appears to be stable. * Follow-up with nephrology as outpatient 5. DVT prophylaxis: Patient is anticoagulated on Coumadin 6. Advanced care planning: Discussed CPR, mechanical ventilation and PEG tube. Patient would want all these procedures if necessary. Therefore, the patient is full CODE STATUS. 7. Right upper extremity lesion * Per the patient this was related with some gardening that she was doing. * I do not appreciate any cellulitis at this time. * Patient states that she put some hydrocortisone cream on it. I told her to avoid that as it can impair the healing. I advised just local care and his coverage and if patient is can he is not some kind of salve to use Aquaphor or Vaseline. Has been asked specifically about Neosporin I advised against it as it can cause contact dermatitis. Code Visit OBSV E&M: 47838 Initial observation care L3
[2018-01-08 02:41] LABS: Bedside Glucose 293 mg/dL (70-110)
[2018-01-08 05:37] LABS: Prothrombin Time (Protime)PT. 22.3 SECONDS (11.7-14.9)
[2018-01-08 05:42] LABS: Anion Gap 8 (5-15); BUN 43 mg/dL (7-18); BUN/Creat Ratio 20.3 RATIO (10-20); Calcium,Total 8.1 mg/dL (8.5-10.1); Chloride 105 mmol/L (98-107); Creatinine, Serum 2.12 mg/dL (0.55-1.02); EST Glomerular Filtration Rate 24 mL/min (>60); Est Glom Filt Rate - Afr Amer 29 mL/min (>60); Estimated Creatinine Clearance 18.68 ml/min; Glucose 301 mg/dL (74-106); Potassium 4.6 mmol/L (3.5-5.1); Sodium Level 140 mmol/L (136-145)
[2018-01-08] MEDS: Levothyroxine 88 MCG Tablet PO (06:37)
[2018-01-08 07:00] LABS: Bedside Glucose 290 mg/dL (70-110)
[2018-01-08] MEDS: Albuterol 2.5 MG/3 ML VIAL.NEB. INHALATION (07:19)
[2018-01-08] MEDS: Budesonide Respules 0.5 MG/2 ML AMPUL.NEB. INHALATION (07:19)
[2018-01-08] MEDS: Insulin Lispro 100 UNIT/ML INSULN.PEN 10 UNIT SC ×2 (08:27→11:28)
[2018-01-08] MEDS: NIFEdipine 30 MG Tablet PO (10:23)
[2018-01-08] MEDS: Furosemide 40 MG Tablet PO (10:23)
[2018-01-08] MEDS: Lisinopril 20 MG Tablet PO (10:23)
[2018-01-08] MEDS: Amiodarone 200 MG Tablet 100 MG PO (10:23)
[2018-01-08] MEDS: 0.9% Normal Saline 1,000 ML 100 ML IV (11:27)
[2018-01-08] MEDS: 0.9% NaCl Peripheral Flush Adult/Peds IV (11:27)
--- NOTE | 2018-01-08 11:38 | PCM.DC ---
- Discharge Diagnoses Current Active Problems: Current Active and Chronic Problems (Last Updated 01/08/18 @ 01:09 by Mark Ruggiero DO) Syncope (Acute) UTI (urinary tract infection) (Acute) You will use the following diet at home:: Calorie/Carbohydrate Controlled (specify 1200, 1400, etc) - 1800 yomaira / day, Cardiac - <2 g sodium / day Your food should be the consistency of: Regular Your liquids should be the consistency of: Regular/Thin Discharge Activity: Return to Normal Activity Allergies/Adverse Reactions: Allergies dronedarone HCl [From Multaq] Allergy (Verified 01/07/18 21:00) Other unable to breath quinapril [From Accupril] Adverse Reaction (Severe, Verified 01/07/18 21:00) near syncope cortisone Adverse Reaction (Intermediate, Verified 01/07/18 21:00) swelling hydralazine Adverse Reaction (Intermediate, Verified 01/07/18 21:00) weakness Beta-Blockers (Beta-Adrenergic Bloc Adverse Reaction (Verified 01/08/18 02:05) Other WHEEZING, shaking, passes out prednisone Adverse Reaction (Verified 01/07/18 21:00) Swelling CARDURA Allergy (Uncoded 01/07/18 21:00) Other PT NOT SURE- POSSIBLE SWELLING NORVASC Allergy (Uncoded 01/07/18 21:00) Swelling SCALLOPS Allergy (Uncoded 01/07/18 21:00) Swelling SULFA Allergy (Uncoded 01/07/18 21:00) Other SPOTS IN MOUTH/SORE MOUTH ATIVAN Adverse Reaction (Uncoded 01/07/18 21:00) Other HALLUCINATIONS METATOPOLOL TARTATE Adverse Reaction (Uncoded 01/07/18 21:00) Other Medications to take at Discharge Multivit-Min/FA/Lycopene/Lut [Centrum Silver Tablet] 1 ea PO DAILY 05/17/14 Acetaminophen [Tylenol Tablet] 650 mg PO Q6H PRN PRN #0 tab 09/15/14 Insulin Aspart [Novolog Flexpen] 10 units SC TID 09/20/14 Albuterol Inhaler [Ventolin Hfa] 2 puff INHALATION Q4H PRN PRN #1 inhaler 10/27/14 Calcitriol [Rocaltrol] 0.25 mcg PO MOWEFR 01/16/17 Lisinopril [Zestril] 20 mg PO DAILY 01/16/17 insulin glargine (U-100) 100 unit/mL (3 mL) subcutaneous pen 15 units SC QHS 07/15/17 warfarin 2 mg tablet 2 mg PO .COMPLEX tab 07/17/17 levothyroxine 88 mcg capsule 88 mcg PO DAILY cap 11/25/17 nifedipine ER 30 mg tablet,extended release 30 mg PO QDAY #90 tab 11/25/17 potassium chloride ER 10 mEq capsule,extended release 10 meq PO QDAY 11/25/17 Amiodarone HCl 100 mg PO DAILY 01/07/18 Aspirin E.C. [Ecotrin] 81 mg PO QHS 01/07/18 Cholecalciferol (Vitamin D3) [Vitamin D3] 1,000 unit PO QHS 01/07/18 Furosemide [Lasix] 40 mg PO .COMPLEX 01/07/18 Albuterol Aerosols [Ventolin Aerosols] 2.5 mg INHALATION Q4H PRN PRN vial.neb. 01/08/18 Cephalexin [Keflex] 500 mg PO BID #13 cap 01/08/18 Lecithin 1,200 mg PO DAILY 01/08/18 The following prescriptions were given: Cephalexin [Keflex] 500 mg PO BID #13 cap Primary Care Physician: Jovana Moulton MD [Primary Care Provider] - Please follow up with your Primary Care Physician in: 1 week Proposed Discharge Date: 01/08/18
[2018-01-08 11:41] LABS: Bedside Glucose 315 mg/dL (70-110)
--- NOTE | 2018-01-08 12:52 | PCM.DC.SUM ---
<Sathish Fregoso - Last Filed: 01/08/18 12:52> Discharge Date and Diagnosis Date of Admission: 01/08/18 Date of Discharge: 01/08/18 - Primary Discharge Diagnosis Active and Suspected Problems (Last Updated 01/08/18 @ 01:09 by Mark Ruggiero DO) Syncope (Acute) 2/2 UTI and dehydration UTI (urinary tract infection) (Acute) Dehydration with orthostatic hypotension Paroxysmal AF T2DM HLD HTN CVA Chronic anemia CKD CAD MAGALI Severe pulmonary HTN - Secondary Discharge Diagnosis Chronic Problems (Last Updated 01/08/18 @ 01:09 by Mark Ruggiero DO) Depression (Chronic) long term (current) use of anticoagulants (Chronic) 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 Miller History of maze procedure (Chronic) 09/29/2014 atricure pulmonary vein isolation MAZE with ligation of left atrial appendage per Dr. Agnela Alexis History of mitral valve replacement with bioprosthetic valve (Chronic) 09/29/2014: MVR with 27 mm Medtronic tisue valve per Dr. Angela Alexis CAD (coronary artery disease) (Chronic) Atrial fibrillation (Chronic) Hyperlipidemia (Chronic) Hypertension (Chronic) resistant HTN Cerebrovascular disease (Chronic) ischemic stroke w hemorrhagic transformation in the setting of coumadin anticoagulation Anemia (Chronic) CRF (chronic renal failure) (Chronic) Anticoagulation goal of INR 2 to 3 (Chronic) Diabetes mellitus type II, uncontrolled (Chronic) Stroke with left visual deficit (Chronic) Chronic diastolic heart failure (Chronic) Pulmonary hypertension (Chronic) MAGALI (obstructive sleep apnea) (Chronic) on CPAP Hospital Course and Treatment Imaging Results: RAD/Chest PA and Lateral IMPRESSION: No acute thoracic pathology. 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 She had not done this sort of activity in years and became lightheadedness and fell to the ground losing consciousness. After a few minutes she came to and was brought to the ED. She had a mildly elevated creatinine and a UA indicative of UTI. She was placed on PO keflex and given IV fluids. She was maintained overnight on tele. Troponin was negative x 3 and she had negative troponin. Orthostatic vitals were negative. AM labs were improved. Recent echo last month showed severe pulmonary HTN and normal EF. She also had recently had a holter monitor where she was in sinus kentrell, here she was mildly tachy but SR. Her symptoms were felt to be related to UTI/dehydration and the activity at home. She was discharged home on PO keflex and advised to have close follow up. This patient was seen by Sathish Fregoso PA-C under the supervision of Doctor Jsaon. [] Discharge Diet: 1800 Calorie Control Diet, 2000 mg Sodium Diet Discharge Activity: Return to Normal Activity Home Medications: Medications to take at Discharge Multivit-Min/FA/Lycopene/Lut [Centrum Silver Tablet] 1 ea PO DAILY 05/17/14 Acetaminophen [Tylenol Tablet] 650 mg PO Q6H PRN PRN #0 tab 09/15/14 Insulin Aspart [Novolog Flexpen] 10 units SC TID 09/20/14 Albuterol Inhaler [Ventolin Hfa] 2 puff INHALATION Q4H PRN PRN #1 inhaler 10/27/14 Calcitriol [Rocaltrol] 0.25 mcg PO MOWEFR 01/16/17 Lisinopril [Zestril] 20 mg PO DAILY 01/16/17 insulin glargine (U-100) 100 unit/mL (3 mL) subcutaneous pen 15 units SC QHS 07/15/17 warfarin 2 mg tablet 2 mg PO .COMPLEX tab 07/17/17 levothyroxine 88 mcg capsule 88 mcg PO DAILY cap 11/25/17 nifedipine ER 30 mg tablet,extended release 30 mg PO QDAY #90 tab 11/25/17 potassium chloride ER 10 mEq capsule,extended release 10 meq PO QDAY 11/25/17 Amiodarone HCl 100 mg PO DAILY 01/07/18 Aspirin E.C. [Ecotrin] 81 mg PO QHS 01/07/18 Cholecalciferol (Vitamin D3) [Vitamin D3] 1,000 unit PO QHS 01/07/18 Furosemide [Lasix] 40 mg PO .COMPLEX 01/07/18 Albuterol Aerosols [Ventolin Aerosols] 2.5 mg INHALATION Q4H PRN PRN vial.neb. 01/08/18 Cephalexin [Keflex] 500 mg PO BID #13 cap 01/08/18 Lecithin 1,200 mg PO DAILY 01/08/18 Following Prescrptions Were Given to Patient: Cephalexin [Keflex] 500 mg PO BID #13 cap Primary Care Physician: Jovana Moulton MD [Primary Care Provider] - Please follow up with your Primary Care Physician in: 1 week Please Follow Up With: salena Disposition: Home Minutes spent on discharge:: 35 Patient Condition:: Stable Medical Necessity - Tobacco Use Smoking Status: Never smoker Meaningful Use Info Meaningful Use Diagnoses (Choose all that apply): None applicable <Dilshad Gomez - Last Filed: 01/08/18 16:45> Discharge Date and Diagnosis - Secondary Discharge Diagnosis Chronic Problems (Last Updated 01/08/18 @ 01:09 by Mark Ruggiero DO) Depression (Chronic) long term (current) use of anticoagulants (Chronic) S/P CABG x 1 (Chronic) 09/29/2014 CABG: SVG to distal LAD [place] [facility] per Dr. Miller History of maze procedure (Chronic) 09/29/2014 atricure pulmonary vein isolation MAZE with ligation of left atrial appendage per Dr. Angela Alexis History of mitral valve replacement with bioprosthetic valve (Chronic) 09/29/2014: MVR with 27 mm Medtronic tisue valve per Dr. Angela Alexis CAD (coronary artery disease) (Chronic) Atrial fibrillation (Chronic) Hyperlipidemia (Chronic) Hypertension (Chronic) resistant HTN Cerebrovascular disease (Chronic) ischemic stroke w hemorrhagic transformation in the setting of coumadin anticoagulation Anemia (Chronic) CRF (chronic renal failure) (Chronic) Anticoagulation goal of INR 2 to 3 (Chronic) Diabetes mellitus type II, uncontrolled (Chronic) Stroke with left visual deficit (Chronic) Chronic diastolic heart failure (Chronic) Pulmonary hypertension (Chronic) MAGALI (obstructive sleep apnea) (Chronic) on CPAP Hospital Course and Treatment Summary of Care Provided: This patient was seen in conjunction with Sathish AMBRIZ. I have independently interviewed and examined the patient and reviewed pertinent history, examination findings, laboratory and plan of management. I have reviewed the note and agree with the documented findings with the few additional points. In brief, patient is admitted for syncope from mild drop in blood pressure/dehydration does not meet orthostatic hypotension criteria in view of multiple comorbidities including severe pulmonary hypertension. Her blood pressure dropped from 147/82, heart rate 91 on supine position to 137/68, heart rate 82 on sitting position. The patient was resuscitated with IV fluid and time of discharge her blood pressure is 140s/77 I have discussed my assessment with Sathish AMBRIZ and orders have been reviewed. [] Code Visit OBSV E&M: [id number] Observation care discharge
--- NOTE | 2018-01-08 13:09 | DS.PCM_ITS ---
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 Miller History of maze procedure (Chronic) 09/29/2014 atricure pulmonary vein isolation MAZE with ligation of left atrial appendage per Dr. Angela Alexis History of mitral valve replacement with bioprosthetic valve (Chronic) 09/29/2014: MVR with 27 mm Medtronic tisue valve per Dr. Angela Alexis CAD (coronary artery disease) (Chronic) Atrial fibrillation (Chronic) Hyperlipidemia (Chronic) Hypertension (Chronic) resistant HTN Cerebrovascular disease (Chronic) ischemic stroke w hemorrhagic transformation in the setting of coumadin anticoagulation Anemia (Chronic) CRF (chronic renal failure) (Chronic) Anticoagulation goal of INR 2 to 3 (Chronic) Diabetes mellitus type II, uncontrolled (Chronic) Stroke with left visual deficit (Chronic) Chronic diastolic heart failure (Chronic) Pulmonary hypertension (Chronic) MAGALI (obstructive sleep apnea) (Chronic) on CPAP Hospital Course and Treatment Imaging Results: RAD/Chest PA and Lateral IMPRESSION: No acute thoracic pathology. 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 She had not done this sort of activity in years and became lightheadedness and fell to the ground losing consciousness. After a few minutes she came to and was brought to the ED. She had a mildly elevated creatinine and a UA indicative of UTI. She was placed on PO keflex and given IV fluids. She was maintained overnight on tele. Troponin was negative x 3 and she had negative troponin. Orthostatic vitals were negative. AM labs were improved. Recent echo last month showed severe pulmonary HTN and normal EF. She also had recently had a holter monitor where she was in sinus kentrell, here she was mildly tachy but SR. Her symptoms were felt to be related to UTI/ dehydration and the activity at home. She was discharged home on PO keflex and advised to have close follow up. This patient was seen by Sathish Fregoso PA-C under the supervision of Doctor Jason. [] Discharge Diet: 1800 Calorie Control Diet, 2000 mg Sodium Diet Discharge Activity: Return to Normal Activity Home Medications: Medications to take at Discharge Multivit-Min/FA/Lycopene/Lut [Centrum Silver Tablet] 1 ea PO DAILY 05/17/14 Acetaminophen [Tylenol Tablet] 650 mg PO Q6H PRN PRN #0 tab 09/15/14 Insulin Aspart [Novolog Flexpen] 10 units SC TID 09/20/14 Albuterol Inhaler [Ventolin Hfa] 2 puff INHALATION Q4H PRN PRN #1 inhaler Calcitriol [Rocaltrol] 0.25 mcg PO MOWEFR 01/16/17 Lisinopril [Zestril] 20 mg PO DAILY 01/16/17 insulin glargine (U-100) 100 unit/mL (3 mL) subcutaneous pen 15 units SC QHS warfarin 2 mg tablet 2 mg PO .COMPLEX tab 07/17/17 levothyroxine 88 mcg capsule 88 mcg PO DAILY cap 11/25/17 nifedipine ER 30 mg tablet,extended release 30 mg PO QDAY #90 tab 11/25/17 potassium chloride ER 10 mEq capsule,extended release 10 meq PO QDAY 11/25/17 Amiodarone HCl 100 mg PO DAILY 01/07/18 Aspirin E.C. [Ecotrin] 81 mg PO QHS 01/07/18 Cholecalciferol (Vitamin D3) [Vitamin D3] 1,000 unit PO QHS 01/07/18 Furosemide [Lasix] 40 mg PO .COMPLEX 01/07/18 Albuterol Aerosols [Ventolin Aerosols] 2.5 mg INHALATION Q4H PRN PRN vial.neb. 01/08/18 Cephalexin [Keflex] 500 mg PO BID #13 cap 01/08/18 Lecithin 1,200 mg PO DAILY 01/08/18 Following Prescrptions Were Given to Patient: Cephalexin [Keflex] 500 mg PO BID #13 cap Primary Care Physician: Jovana Moulton MD [Primary Care Provider] - Please follow up with your Primary Care Physician in: 1 week Please Follow Up With: salena Disposition: Home Minutes spent on discharge:: 35 Patient Condition:: Stable Medical Necessity - Tobacco Use Smoking Status: Never smoker Meaningful Use Info Meaningful Use Diagnoses (Choose all that apply): None applicable <Dilshad Gomez - Last Filed: 01/08/18 16:45> Discharge Date and Diagnosis - Secondary Discharge Diagnosis Chronic Problems (Last Updated 01/08/18 @ 01:09 by Mark Ruggiero DO) Depression (Chronic) 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 Miller History of maze procedure (Chronic) 09/29/2014 atricure pulmonary vein isolation MAZE with ligation of left atrial appendage per Dr. Angela Alexis History of mitral valve replacement with bioprosthetic valve (Chronic) 09/29/2014: MVR with 27 mm Medtronic tisue valve per Dr. Angela Alexis CAD (coronary artery disease) (Chronic) Atrial fibrillation (Chronic) Hyperlipidemia (Chronic) Hypertension (Chronic) resistant HTN Cerebrovascular disease (Chronic) ischemic stroke w hemorrhagic transformation in the setting of coumadin anticoagulation Anemia (Chronic) CRF (chronic renal failure) (Chronic) Anticoagulation goal of INR 2 to 3 (Chronic) Diabetes mellitus type II, uncontrolled (Chronic) Stroke with left visual deficit (Chronic) Chronic diastolic heart failure (Chronic) Pulmonary hypertension (Chronic) MAGALI (obstructive sleep apnea) (Chronic) on CPAP Hospital Course and Treatment Summary of Care Provided: This patient was seen in conjunction with Sathish AMBRIZ. I have independently interviewed and examined the patient and reviewed pertinent history, examination findings, laboratory and plan of management. I have reviewed the note and agree with the documented findings with the few additional points. In brief, patient is admitted for syncope from mild drop in blood pressure/ dehydration does not meet orthostatic hypotension criteria in view of multiple comorbidities including severe pulmonary hypertension. Her blood pressure dropped from 147/82, heart rate 91 on supine position to 137/68, heart rate 82 on sitting position. The patient was resuscitated with IV fluid and time of discharge her blood pressure is 140s/77 I have discussed my assessment with Sathish AMBRIZ and orders have been reviewed. [] Code Visit OBSV E&M: 22946 Observation care discharge
== END 2018-01-08 11:38 | disposition home or self-care (01) ==
LOC: ED 21:32 → PCU 01-08 02:59
PROVIDERS: Emergency Provider Emergency Medicine; Family Provider Internal Medicine; PCP Internal Medicine; Visit Provider Internal Medicine
DX: I95.1 Orthostatic hypotension (principal); E86.0 Dehydration; N39.0 Urinary tract infection, site not specified; I48.0 Paroxysmal atrial fibrillation; I27.20 Pulmonary hypertension, unspecified; G47.33 Obstructive sleep apnea (adult) (pediatric); I25.10 Atherosclerotic heart disease of native coronary artery without angina pectoris; E78.5 Hyperlipidemia, unspecified; Z86.73 Personal history of transient ischemic attack (TIA), and cerebral infarction without residual deficits; Z79.01 Long term (current) use of anticoagulants; F32.9 Major depressive disorder, single episode, unspecified; Z95.1 Presence of aortocoronary bypass graft; I13.0 Hypertensive heart and chronic kidney disease with heart failure and stage 1 through stage 4 chronic kidney disease, or unspecified chronic kidney disease; I50.32 Chronic diastolic (congestive) heart failure; N18.9 Chronic kidney disease, unspecified; E11.22 Type 2 diabetes mellitus with diabetic chronic kidney disease; E11.65 Type 2 diabetes mellitus with hyperglycemia; I69.398 Other sequelae of cerebral infarction; H53.8 Other visual disturbances; Z95.2 Presence of prosthetic heart valve
CPT/HCPCS: 36415; 71046; 80048; 80053; 81001; 82962; 84484; 85025; 85610; 87086; 87088; 87186; 93005; 94640; 96361; 96374; 97802; 99218; 99285; J7030; A4216; G0378; J2405

== ENCOUNTER 2018-01-22 15:46 | Outpatient (RCR) | payer MEDICARE, SELFPAY ==
[2018-01-22 17:18] LABS: International Normalized Ratio 2.5; Prothrombin Time (Protime)PT. 26.7 SECONDS (11.7-14.9)
[2018-01-22 17:38] LABS: Anion Gap 10 (5-15); BUN 54 mg/dL (7-18); BUN/Creat Ratio 21.3 RATIO (10-20); Calcium,Total 8.2 mg/dL (8.5-10.1); Chloride 97 mmol/L (98-107); Creatinine, Serum 2.53 mg/dL (0.55-1.02); EST Glomerular Filtration Rate 20 mL/min (>60); Est Glom Filt Rate - Afr Amer 24 mL/min (>60); Glucose 476 mg/dL (74-106); Sodium Level 135 mmol/L (136-145)
== END 2018-01-22 17:00 | disposition home or self-care (01) ==
LOC: LAB 15:46
PROVIDERS: Physician Assistant Medical; Family Provider Internal Medicine; PCP Internal Medicine; Visit Provider Internal Medicine Cardiovascular Disease
DX: Z95.2 Presence of prosthetic heart valve (principal); R55 Syncope and collapse
CPT/HCPCS: 36415; 80048; 85610

== ENCOUNTER → 2018-01-29 10:02 | Outpatient (CLI) | payer MEDICARE, SELFPAY ==
--- NOTE | 2018-01-29 10:04 | ECHOD_ITS ---
Reason For Study: DYSPNEA Procedure This was a 2D Doppler, Color Flow transthoracic echocardiogram. Exam performed in department. Left Ventricle Normal LV size. Moderate concentric left ventricular hypertrophy. The estimated ejection fraction is 50 %. Left ventricular systolic function is lower limits of normal. Transmitral diastolic flow velocities suggest severe (stage 3) diastolic dysfunction. No regional wall motion abnormalities noted. Right Ventricle Normal RV size. Mild global right ventricular systolic dysfunction. Atria The left atrium is mildly enlarged. The right atrium is mildly enlarged. Mitral Valve Peak transmitral valve gradient 12 mmHg. Mean transmitral valve gradient 4.5 mmHg. Trivial eccentric mitral valve insufficiency. Stable appearing bioprosthetic mitral valve apparatus. Tricuspid Valve Normal tricuspid valve. Mild to moderate (1-2+) tricuspid valve insufficiency. Pulmonary artery systolic pressure is 51 mmHg. Aortic Valve Trisinus/trileaflet aortic valve. Pulmonic Valve Normal pulmonic valve. Great Vessels Normal aortic root. The pulmonary artery is normal size. Normal inferior vena cava. Pericardium/Pleural No pericardial effusion. MMode/2D Measurements & Calculations LVIDd: 3.2 cm IVSd: 1.4 cm Ao root diam: 3.2 cm LVIDs: 2.1 cm LVPWd: 1.5 cm LA dimension: 4.9 cm RVDd: 3.1 cm FS: 34.3 % LAV(MOD-sp4): 72.5 ml LA A4 area: 23.2 cm2 RA A4 area: 23.3 cm2 Time Measurements MV dec time: 0.27 sec Doppler Measurements & Calculations MV E max mayito: 199.0 cm/sec Lat Peak E' Mayito: 6.2 cm/sec Med Peak E' Mayito: 5.0 cm/sec E/E' lat: 32.1 E/E' med: 40.1 MV V2 max: 151.0 cm/sec Ao V2 max: 153.3 cm/sec LV V1 max: 114.2 cm/sec MV max P.1 mmHg Ao max P.4 mmHg LV V1 max P.2 mmHg MV V2 mean: 81.6 cm/sec MV mean P.5 mmHg MV V2 VTI: 34.3 cm PA V2 max: 76.8 cm/sec TR max mayito: 342.6 cm/sec TR max P.9 mmHg Interpretation Summary Normal LV size. The estimated ejection fraction is 50 %. Left ventricular systolic function is lower limits of normal. Moderate concentric left ventricular hypertrophy. Transmitral diastolic flow velocities suggest severe (stage 3) diastolic dysfunction Stable appearing bioprosthetic mitral valve apparatus. Mean transmitral valve gradient 4.5 mmHg. Compared with the previous the pulmonary pressures are improved but the LV funtion is mildly declined. GLS of 12 Ordering Physician: Danna Blas/Beto Dennis Referring Physician: Jovana Moulton M.D. Performed By: Starr Gomez, YANIQUECS, RVT
== END ==
PROVIDERS: Family Provider Internal Medicine; PCP Internal Medicine; Visit Provider Physician Assistant Medical
DX: I25.810 Atherosclerosis of coronary artery bypass graft(s) without angina pectoris (principal); I05.0 Rheumatic mitral stenosis; R55 Syncope and collapse; I27.20 Pulmonary hypertension, unspecified
CPT/HCPCS: 93225; 93226; 93306

== ENCOUNTER → 2018-02-03 12:06 | Outpatient (CLI) | payer MEDICARE, SELFPAY ==
[2018-02-03 13:12] LABS: Anion Gap 7 (5-15); BUN 34 mg/dL (7-18); Calcium,Total 8.9 mg/dL (8.5-10.1); Chloride 100 mmol/L (98-107); EST Glomerular Filtration Rate 26 mL/min (>60); Est Glom Filt Rate - Afr Amer 31 mL/min (>60); Glucose 229 mg/dL (74-106); Potassium 4.2 mmol/L (3.5-5.1); Sodium Level 139 mmol/L (136-145)
== END ==
PROVIDERS: Family Provider Internal Medicine; PCP Internal Medicine; Visit Provider Internal Medicine Cardiovascular Disease
DX: R55 Syncope and collapse (principal)
CPT/HCPCS: 36415; 80048

== ENCOUNTER 2018-02-04 15:58 | Outpatient (RCR) | payer MEDICARE, SELFPAY | END 2018-02-24 23:59 | LOC: DC 15:58 | PROVIDERS: Family Provider Internal Medicine; PCP Internal Medicine; Visit Provider Podiatrist Foot & Ankle Surgery | DX: E11.9 Type 2 diabetes mellitus without complications (principal); Z71.3 Dietary counseling and surveillance | CPT/HCPCS: G0109 ==

== ENCOUNTER 2018-03-13 13:24 | Emergency (ER) | payer MEDICARE, SELFPAY ==
[2018-03-13 13:26] VITALS: BP 194/77; PULSE 55; RESP 18; TEMP 37.1; O2SAT 97; BMI 30.9
[2018-03-13] MEDS: Oxymetazoline 0.05% 1 SPRAY SPRAY.BTL 2 SPRAY NASAL (13:46)
--- NOTE | 2018-03-13 13:54 | ED.VISSUMM ---
- ER Visit Summary Date of Service: 03/13/18 Chief Complaint: Left-sided nosebleed anticoagulated on Coumadin History of Present Illness: The patient is a 77 F history of prior A. fib, CVA, insulin-dependent diabetes, anemia and renal insufficiency. Patient is on Coumadin due to her A. fib. Had a nosebleed 2 days ago which stopped after several hours. Blow her nose today and the bleeding restarted. Left-sided only. Denies any melena or gross hematuria. No trauma. She has had nosebleeds before but not very frequently. Physical Examination: Well appearing older female. Vital signs are stable and afebrile. H EENT exam small amount of blood in posterior pharynx. Blood in the left nasal passageway but currently not significant clots. Right side unremarkable. Neck nontender. Lungs clear to auscultation bilaterally. Heart regular rate and rhythm no murmur. Abdomen soft nontender. Moving all 4 extremities. Neurovascularly intact. Neurologically awake alert no focal deficits. Test Results: PT and INR equal Emergency Department Course and Treatment: Afrin soaked cotton balls placed in both nares. Bleeding was controlled. Anterior nasal pack was placed in the left nasal passageway. This was a Merocel anterior pack. Nasal tampon. Treatment Plan: Packing pulled in 3 days. Amoxicillin 3 times daily for 3 days. Return if recurrent bleeding. Follow-up with ENT as needed. Disposition: Discharge Impression: Acute left anterior nosebleed Anticoagulated on Coumadin Anterior nasal pack nasal tampon placed by ER physician. This note was generated with [employer] dictation software. It may contain incorrect words, spelling, and punctuation that were not noted in review of the chart prior to signing ED Disposition - Plan for ED Patient: Chief Complaint: Nosebleed Referrals: Jovana Moulton MD [Primary Care Provider] -
--- NOTE | 2018-03-13 13:56 | ED.DEP ---
ED Disposition - Plan for ED Patient: Disposition: Home or Assisted Living Chief Complaint: Nosebleed Instructions: Nosebleed Prescriptions: Amoxicillin [Amoxil Suspension] 250 mg PO Q8H #9 ml Referrals: Jovana Moulton MD [Primary Care Provider] - As Needed Hoang Sam MD [STAFF PHYSICIAN] - As Needed Additional Instructions: Hold next Coumadin dose. If recurrent nosebleed hold direct pressure for 30 minutes. If unable to stop return to the ER. I have packing removed in 3-4 days. Follow-up with ENT as needed.
[2018-03-13 14:18] LABS: International Normalized Ratio 1.7; Prothrombin Time (Protime)PT. 19.8 SECONDS (11.7-14.9)
== END 2018-03-13 14:51 | disposition home or self-care (01) ==
PROVIDERS: Emergency Provider Emergency Medicine; Family Provider Internal Medicine; PCP Internal Medicine
DX: R04.0 Epistaxis (principal); Z79.01 Long term (current) use of anticoagulants; Z86.73 Personal history of transient ischemic attack (TIA), and cerebral infarction without residual deficits; I25.10 Atherosclerotic heart disease of native coronary artery without angina pectoris; E11.9 Type 2 diabetes mellitus without complications; I48.91 Unspecified atrial fibrillation; D64.9 Anemia, unspecified; N28.9 Disorder of kidney and ureter, unspecified; Z90.710 Acquired absence of both cervix and uterus; Z79.82 Long term (current) use of aspirin; Z79.4 Long term (current) use of insulin; Z79.899 Other long term (current) drug therapy
CPT/HCPCS: 30901; 36415; 85610; 99282

== ENCOUNTER 2018-03-25 12:05 | Outpatient (RCR) | payer MEDICARE, SELFPAY ==
[2018-03-25 12:46] LABS: Prothrombin Time Fingerstick 19.3 SEC (11.9-14.4)
== END 2018-03-25 13:00 | disposition home or self-care (01) ==
LOC: LAB 12:05
PROVIDERS: Family Provider Internal Medicine; PCP Internal Medicine; Visit Provider Internal Medicine Cardiovascular Disease
DX: Z95.2 Presence of prosthetic heart valve (principal)
CPT/HCPCS: 36416; 85610

== ENCOUNTER 2018-04-02 16:30 | Outpatient (RCR) | payer MEDICARE, SELFPAY | END 2018-04-02 23:59 | LOC: DC 16:30 | PROVIDERS: Family Provider Internal Medicine; PCP Internal Medicine; Visit Provider Podiatrist Foot & Ankle Surgery | DX: E11.9 Type 2 diabetes mellitus without complications (principal); Z71.3 Dietary counseling and surveillance | CPT/HCPCS: G0109 ==

== ENCOUNTER 2018-04-14 10:44 | Outpatient (RCR) | payer MEDICARE, SELFPAY ==
[2018-04-14 11:41] LABS: Hematocrit 36.9 % (37-47); Hemoglobin 11.9 g/dl (12.0-15.0); Mean Corp Hgb Conc 32.2 g/gl (32-36); Mean Corpuscular Hgb 26.3 pg (27.0-32.0); Mean Corpuscular Volume 81.6 fL (81-99); Mean Platelet Vol. 11.1 fl (6.2-12.0); Platelet Count 133 K/mm3 (150-450); RBC Distribution Width CV 15.6 % (11.6-14.6); RBC Distribution Width SD 46.6 fl (35.1-43.9); Red Blood Count 4.52 M/mm3 (4.2-5.4); Scan Indicated on CBC? Y/N NO; White Blood Count 6.4 K/mm3 (4.4-11.0)
[2018-04-14 11:52] LABS: International Normalized Ratio 2.1; Prothrombin Time (Protime)PT. 23.6 SECONDS (11.7-14.9)
[2018-04-14 12:17] LABS: Albumin, Serum 3.4 g/dL (3.2-5.0); BUN 48 mg/dL (7-18); BUN/Creat Ratio 22.2 RATIO (10-20); Calcium,Total 8.5 mg/dL (8.5-10.1); Chloride 108 mmol/L (98-107); Creatinine, Serum 2.16 mg/dL (0.55-1.02); EST Glomerular Filtration Rate 24 mL/min (>60); Est Glom Filt Rate - Afr Amer 28 mL/min (>60); Glucose 184 mg/dL (74-106); Potassium 4.1 mmol/L (3.5-5.1); Sodium Level 144 mmol/L (136-145)
[2018-04-14 12:22] LABS: PTHIN 118.1 pg/mL (18.4-80.1)
== END 2018-04-14 12:00 | disposition home or self-care (01) ==
LOC: LAB 10:44
PROVIDERS: Family Provider Internal Medicine; PCP Internal Medicine; Visit Provider Internal Medicine Cardiovascular Disease
DX: N17.9 Acute kidney failure, unspecified (principal); N25.81 Secondary hyperparathyroidism of renal origin; D64.9 Anemia, unspecified; Z95.2 Presence of prosthetic heart valve
CPT/HCPCS: 36415; 80069; 83970; 85027; 85610

== ENCOUNTER 2018-05-29 10:26 | Outpatient (RCR) | payer MEDICARE, SELFPAY ==
[2018-05-29 11:57] LABS: International Normalized Ratio 1.9; Prothrombin Time (Protime)PT. 22.1 SECONDS (11.7-14.9)
[2018-05-29 12:02] LABS: Anion Gap 7 (5-15); BUN 31 mg/dL (7-18); BUN/Creat Ratio 18.3 RATIO (10-20); Calcium,Total 8.8 mg/dL (8.5-10.1); Chloride 104 mmol/L (98-107); Creatinine, Serum 1.69 mg/dL (0.55-1.02); EST Glomerular Filtration Rate 31 mL/min (>60); Est Glom Filt Rate - Afr Amer 38 mL/min (>60); Free T3 2.2 pg/mL (2.18-3.98); Glucose 118 mg/dL (74-106); Sodium Level 143 mmol/L (136-145); Thyroid Stim Hormone (TSH) 6.08 uIU/mL (0.358-3.74)
[2018-05-29 12:07] LABS: Microalbumin:Creatinine Ratio 854.1 mg/g CRE (<30 mg/g CRE)
[2018-05-29 12:24] LABS: Hemoglobin A1c 8.6 % (4.2-6.3)
== END 2018-06-26 12:29 | disposition home or self-care (01) ==
LOC: LAB 10:26
PROVIDERS: Family Provider Internal Medicine; PCP Internal Medicine; Referring Provider Internal Medicine Cardiovascular Disease; Visit Provider Internal Medicine Cardiovascular Disease
DX: N17.9 Acute kidney failure, unspecified (principal); N25.81 Secondary hyperparathyroidism of renal origin; D64.9 Anemia, unspecified; Z95.2 Presence of prosthetic heart valve; E03.9 Hypothyroidism, unspecified; E11.65 Type 2 diabetes mellitus with hyperglycemia; Z79.4 Long term (current) use of insulin; N18.4 Chronic kidney disease, stage 4 (severe); Z79.899 Other long term (current) drug therapy
CPT/HCPCS: 36415; 80048; 82043; 82570; 83036; 84439; 84443; 84481; 85610

== ENCOUNTER 2018-06-22 11:05 | Inpatient (IN) | payer MEDICARE, SELFPAY ==
[2018-06-22] VITALS (16 sets, daily range): BP systolic 126–162; BP diastolic 57–76; PULSE 52–59; RESP 12–26; TEMP 36.2–37.3; O2SAT 88–99; BMI 31.5; BMI 32.0; BMI 31.3
--- NOTE | 2018-06-22 11:51 | EKG12_ITS ---
Test Reason : SOB Blood Pressure : / mmHG Vent. Rate : 056 BPM Atrial Rate : 056 BPM P-R Int : 200 ms QRS Dur : 098 ms QT Int : 522 ms P-R-T Axes : 036 116 076 degrees QTc Int : 503 ms Poor data quality, interpretation may be adversely affected Sinus bradycardia Left posterior fascicular block Poor R wave progression Prolonged QT Abnormal ECG Confirmed by SAJAN IZAGUIRRE, KENDRICK ([id number]), editor producer JACK PINTO ([id number]) on 06/24/2018 4:21:10 PM Referred By: MAKI Confirmed By:KENDRICK MOELLER MD
--- NOTE | 2018-06-22 11:53 | ED.VISSUMM ---
- ER Visit Summary Date of Service: 06/22/18 Chief Complaint: Shortness of breath History of Present Illness: The patient is a 78 F. History of CVA, insulin-dependent diabetes, treated, renal insufficiency and tricuspid disease. Prior history of intermittent A. fib. She has had a mitral valve replaced. Patient states she has been short of breath for 3+ weeks. She was initially treated with prednisone and amoxicillin for the last 4-5 days. States she is not on any bilateral she was diagnosed as bronchitis but does not believe that the be true. Has a nonproductive cough. No hemoptysis. No history of DVT or PE. Shortness of breath worse supine. Physical Examination: Older female. Vital signs are stable. She is afebrile. Her pulse ox is 95% on room air no hypoxia. H EENT exam unremarkable. Neck nontender. Lungs expiratory wheezing. No rales or rhonchi equal and symmetrical. Heart regular rhythm rate about 55-60 no murmur. Chest wall nontender. Abdomen soft nontender. All 4 extremities. 1 plus pitting edema equal symmetrical in both lower extremities. Calves are nontender. No cords. Neurologically she is awake alert no focal deficits. Test Results: Chest x-ray shows chronic changes no acute process. Both of myself and the radiologist. EKG sinus bradycardia rate of 56 no acute signs of ischemia. White count 7. Hemoglobin 12. Platelets of 130,000 which is her baseline. Electrolytes unremarkable creatinine at 2.0 consistent with her chronic renal insufficiency. Gap 11. Troponin normal. BNP elevated at 531 consistent with CHF and also consistent with the peripheral edema in her legs. Emergency Department Course and Treatment: Patient treated with DuoNeb aerosol. Treatment Plan: I discussed with the patient treatment options. She is frustrated that this has not been improving. She has been using furosemide at home without relief. She feels like she is getting worse. She said she cannot sleep because she cannot lay supine. She requests to be admitted. She will be started on IV Lasix in the ER. Disposition: Addition I have the hospitalist on page. Impression: Acute dyspnea secondary to exacerbation of CHF Lower extremity edema bilaterally This note was generated with [employer] dictation software. It may contain incorrect words, spelling, and punctuation that were not noted in review of the chart prior to signing ED Disposition - Plan for ED Patient: Chief Complaint: Shortness of Breath Referrals: Jovana Moulton MD [Primary Care Provider] -
--- NOTE | 2018-06-22 11:55 | RAD_ITS ---
STUDY: X-RAY CHEST REASON FOR EXAM: Female, 78 years old. Shortness of breath and feeling weak TECHNIQUE: PA and lateral views of the chest. COMPARISON: 01/07/2018 FINDINGS: There is hyperinflation of the lungs consistent with chronic obstructive lung disease (COPD). There is no demonstrated pleural abnormality. Sternal cerclage wires are present from a prior sternotomy. Mild cardiomegaly with stable artificial heart valve. Normal mediastinum and jacki. Normal visualized pulmonary arteries. Normal visualized aortic arch and descending thoracic aorta. There are diffuse degenerative changes of the visualized thoracic spine. Normal visualized ribs, clavicles, and shoulders. There is no demonstrated abnormality of the visualized soft tissue structures of the upper abdomen. RAD/Chest PA and Lateral IMPRESSION: Mild COPD. No acute findings. Electronically Signed: Lionel Monroy DO at 12:19 EST Tel , Service support ,
--- NOTE | 2018-06-22 11:57 | ED.DCSUM_ITS ---
- ER Visit Summary Date of Service: 06/22/18 Chief Complaint: Shortness of breath History of Present Illness: The patient is a 78 F. History of CVA, insulin- dependent diabetes, treated, renal insufficiency and tricuspid disease. Prior history of intermittent A. fib. She has had a mitral valve replaced. Patient states she has been short of breath for 3+ weeks. She was initially treated with prednisone and amoxicillin for the last 4-5 days. States she is not on any bilateral she was diagnosed as bronchitis but does not believe that the be true. Has a nonproductive cough. No hemoptysis. No history of DVT or PE. Shortness of breath worse supine. Physical Examination: Older female. Vital signs are stable. She is afebrile. Her pulse ox is 95% on room air no hypoxia. H EENT exam unremarkable. Neck nontender. Lungs expiratory wheezing. No rales or rhonchi equal and symmetrical. Heart regular rhythm rate about 55-60 no murmur. Chest wall nontender. Abdomen soft nontender. All 4 extremities. 1 plus pitting edema equal symmetrical in both lower extremities. Calves are nontender. No cords. Neurologically she is awake alert no focal deficits. Test Results: Chest x-ray shows chronic changes no acute process. Both of myself and the radiologist. EKG sinus bradycardia rate of 56 no acute signs of ischemia. White count 7. Hemoglobin 12. Platelets of 130,000 which is her baseline. Electrolytes unremarkable creatinine at 2.0 consistent with her chronic renal insufficiency. Gap 11. Troponin normal. BNP elevated at 531 consistent with CHF and also consistent with the peripheral edema in her legs. Emergency Department Course and Treatment: Patient treated with DuoNeb aerosol. Treatment Plan: I discussed with the patient treatment options. She is frustrated that this has not been improving. She has been using furosemide at home without relief. She feels like she is getting worse. She said she cannot sleep because she cannot lay supine. She requests to be admitted. She will be started on IV Lasix in the ER. Disposition: Addition I have the hospitalist on page. Impression: Acute dyspnea secondary to exacerbation of CHF Lower extremity edema bilaterally This note was generated with [employer] dictation software. It may contain incorrect words, spelling, and punctuation that were not noted in review of the chart prior to signing ED Disposition - Plan for ED Patient: Chief Complaint: Shortness of Breath Referrals: Jovana Moulton MD [Primary Care Provider] -
[2018-06-22 12:00] LABS: Absolute Lymphocyte Count 0.72 X10^3/ul (0.83-4.51); Absolute Neutrophil Count 4.5 X10^3/uL (2.0-7.7); Basophil# 0.04 X10^3/uL; Basophil% 0.6 % (0-1); Eosinophil# 1.38 X10^3/uL; Eosinophils% 19.8 % (0-5); Hematocrit 37.7 % (37-47); Lymphocyte # 0.72 X10^3/ul (4.0); Lymphocyte % 10.3 % (19-41); Mean Corp Hgb Conc 31.8 g/gl (32-36); Mean Corpuscular Volume 81.8 fL (81-99); Mean Platelet Vol. 10.6 fl (6.2-12.0); Monocyte# 0.34 X10^3/uL; Monocyte% 4.9 % (0-10); Neutrophil # 4.47 X10^3/uL (2.7-7.7); Neutrophil % 64.3 % (47-70); Platelet Count 130 K/mm3 (150-450); RBC Distribution Width CV 16.4 % (11.6-14.6); RBC Distribution Width SD 49.3 fl (35.1-43.9); Red Blood Count 4.61 M/mm3 (4.2-5.4)
[2018-06-22 12:01] LABS: POSITIVE COUNT NO; POSITIVE DIFFERENTIAL NO; POSITIVE MORPHOLOGY NO
[2018-06-22 12:16] LABS: Anion Gap 11 (5-15); BUN 33 mg/dL (7-18); BUN/Creat Ratio 16.2 RATIO (10-20); Calcium,Total 8.5 mg/dL (8.5-10.1); Chloride 101 mmol/L (98-107); Creatinine, Serum 2.04 mg/dL (0.55-1.02); EST Glomerular Filtration Rate 25 mL/min (>60); Est Glom Filt Rate - Afr Amer 30 mL/min (>60); Glucose 231 mg/dL (74-106); Potassium 4.4 mmol/L (3.5-5.1); Sodium Level 139 mmol/L (136-145)
[2018-06-22 12:26] LABS: BNP,B-Type NATRIURETIC PEPTIDE 531.1 pg/mL (0-100)
[2018-06-22] MEDS: Ipratropium/Albuterol Sulfate 3 ML AMPUL.NEB INHALATION ×2 (12:43→21:27)
[2018-06-22] MEDS: Albuterol 2.5 MG/3 ML VIAL.NEB. INHALATION (13:13)
[2018-06-22] MEDS: Furosemide 40 MG/4 ML Vial IV (17:00)
--- NOTE | 2018-06-22 20:12 | PCM.HP.STD ---
Problem List (1) COPD exacerbation Status: Acute (2) Atherosclerosis of coronary artery bypass graft without angina pectoris Status: Chronic Qualifiers: [place] vs. transplanted heart: [place] heart Qualified Code(s): I25.810 - Atherosclerosis of coronary artery bypass graft(s) without angina pectoris (3) Postsurgical percutaneous transluminal coronary angioplasty (PTCA) status Status: Chronic Comment: PTCA of LAD ; (4) Subdural bleeding Status: Acute (5) Mitral stenosis Status: Acute Qualifiers: Cardiac valve disease etiology: nonrheumatic Qualified Code(s): I34.2 - Nonrheumatic mitral (valve) stenosis (6) Encounter for long-term current use of high risk medication Status: Acute (7) Paroxysmal atrial fibrillation Status: Acute (8) Depression Status: Chronic (9) Dermatitis of lower extremity Status: Acute (10) halfway (current) use of anticoagulants Status: Chronic (11) Bradycardia Status: Chronic (12) Syncope Status: Acute (13) S/P CABG x 1 Status: Chronic Comment: 09/29/2014 CABG: SVG to distal LAD [facility] per Dr. Miller (14) History of maze procedure Status: Chronic Comment: 09/29/2014 atricure pulmonary vein isolation MAZE with ligation of left atrial appendage per Dr. Angela Alexis (15) History of mitral valve replacement with bioprosthetic valve Status: Chronic Comment: 09/29/2014: MVR with 27 mm Medtronic tisue valve per Dr. Angela Alexis (16) Atrial fibrillation Status: Chronic Qualifiers: Atrial fibrillation type: paroxysmal Qualified Code(s): I48.0 - Paroxysmal atrial fibrillation; I48.0 - Paroxysmal atrial fibrillation; I48.0 - Paroxysmal atrial fibrillation; I48.0 - Paroxysmal atrial fibrillation (17) Hyperlipidemia Status: Chronic Qualifiers: Hyperlipidemia type: pure hypercholesterolemia Qualified Code(s): E78.00 - Pure hypercholesterolemia, unspecified; E78.00 - Pure hypercholesterolemia, unspecified; E78.00 - Pure hypercholesterolemia, unspecified; E78.0 - Pure hypercholesterolemia (18) Hypertension Status: Chronic Qualifiers: Hypertension type: essential hypertension Qualified Code(s): I10 - Essential (primary) hypertension; I10 - Essential (primary) hypertension; I10 - Essential (primary) hypertension Comment: resistant HTN (19) Cerebrovascular disease Status: Chronic Comment: ischemic stroke w hemorrhagic transformation in the setting of coumadin anticoagulation (20) Anemia Status: Chronic (21) CRF (chronic renal failure) Status: Chronic Qualifiers: Chronic kidney disease stage: stage 3 (moderate) Qualified Code(s): N18.3 - Chronic kidney disease, stage 3 (moderate); N18.3 - Chronic kidney disease, stage 3 (moderate) (22) Anticoagulation goal of INR 2 to 3 Status: Chronic (23) Diabetes mellitus type II, uncontrolled Status: Chronic (24) Edema of both legs Status: Acute (25) Type 2 diabetes mellitus without complications Status: Acute (26) Syncope Status: Acute Qualifiers: Syncope type: unspecified Qualified Code(s): R55 - Syncope and collapse (27) Possible TIA/stroke Status: Acute (28) 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 (29) Chronic diastolic heart failure Status: Chronic (30) Pulmonary hypertension Status: Chronic (31) MAGALI (obstructive sleep apnea) Status: Chronic Comment: on CPAP (32) Acute on chronic combined systolic and diastolic CHF, NYHA class 2 Status: Acute History of Present Illness Date of Admission: 06/22/18 Chief Complaint: Shortness of breath, progressive worsening for 3 weeks The patient is a 78 year old F with history of COPD, chronic combined heart failure, mitral valve replacement in 2015, bioprosthetic, coronary artery disease came to ER with progressive worsening of shortness of breath for about 3 weeks. Patient also has worsening of cough with a small amount of mucus sputum. She denies chest pressure but has lower rib pain on persistent coughing. Patient was treated with prednisone and amoxicillin for about 4-5 days of possible bronchitis but she did not feel better. Bilateral lower extremity edema which is more than her normal baseline for last 3-4 weeks. In ED, chest x-ray shows mild COPD with increased bronchovascular markings. EKG shows sinus bradycardia 56 bpm, prolonged QTC, 503 ms with left posterior fascicular block. Patient is on Coumadin but no INR ordered in ER. Patient has creatinine 2.0, baseline around 1.8-2.5; BUN 33, baseline around 35. Bicarb 27. Anion gap 11. Past Medical History Past Medical History (Chronic Problems): Chronic Problems (Last Reviewed 06/22/18 @ 10:37 by Vicky Arzate, CIELO-C) Atherosclerosis of coronary artery bypass graft without angina pectoris (Chronic) Postsurgical percutaneous transluminal coronary angioplasty (PTCA) status (Chronic) PTCA of LAD 9/; Depression (Chronic) halfway (current) use of anticoagulants (Chronic) Bradycardia (Chronic) S/P CABG x 1 (Chronic 09/29/14) 09/29/2014 CABG: SVG to distal LAD [place] Alex[place] per Dr. Miller 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 Angela Alexis History of mitral valve replacement with bioprosthetic valve (Chronic 09/29/14) 09/29/2014: MVR with 27 mm Medtronic tisue valve per Dr. Angela Alexis Atrial fibrillation (Chronic) Hyperlipidemia (Chronic) Hypertension (Chronic) resistant HTN Cerebrovascular disease (Chronic) ischemic stroke w hemorrhagic transformation in the setting of coumadin anticoagulation Anemia (Chronic) CRF (chronic renal failure) (Chronic) Anticoagulation goal of INR 2 to 3 (Chronic) Diabetes mellitus type II, uncontrolled (Chronic) Stroke with left visual deficit (Chronic) Chronic diastolic heart failure (Chronic) Pulmonary hypertension (Chronic) MAGALI (obstructive sleep apnea) (Chronic) on CPAP Medical History: Medical History (Last Reviewed 06/22/18 @ 10:37 by Vicky Arzate NP-C) Atherosclerosis of coronary artery bypass graft without angina pectoris (Chronic) I25.810 Subdural bleeding (Acute) I62.00 Mitral stenosis (Acute) I05.0 Paroxysmal atrial fibrillation (Acute) I48.0 Depression (Chronic) F32.9 Dermatitis of lower extremity (Acute) L30.9 Bradycardia (Chronic) R00.1 Syncope (Acute) R55 Atrial fibrillation (Chronic) I48.91 Hyperlipidemia (Chronic) E78.5 Hypertension (Chronic) I10 resistant HTN Cerebrovascular disease (Chronic) I67.9 ischemic stroke w hemorrhagic transformation in the setting of coumadin anticoagulation Anemia (Chronic) D64.9 CRF (chronic renal failure) (Chronic) N18.9 Anticoagulation goal of INR 2 to 3 (Chronic) Z51.81, Z79.01 Diabetes mellitus type II, uncontrolled (Chronic) E11.65 Edema of both legs (Acute) R60.0 Type 2 diabetes mellitus without complications (Acute) E11.9 Syncope (Acute) R55 Possible TIA/stroke (Acute) Stroke with left visual deficit (Chronic) Chronic diastolic heart failure (Chronic) I50.32 Pulmonary hypertension (Chronic) I27.20 MAGALI (obstructive sleep apnea) (Chronic) G47.33 on CPAP Dyspnea on exertion R06.09 Edema R60.9 Pulmonary hypertension, moderate to severe I27.20 Shortness of breath R06.02 History of hysterectomy Z90.710 Allergies dronedarone [From Multaq] Allergy (Severe, Verified 06/22/18 18:31) difficulty breathing dronedarone HCl [From Multaq] Allergy (Verified 06/22/18 10:04) Other unable to breath quinapril [From Accupril] Adverse Reaction (Severe, Verified 06/22/18 10:04) near syncope shellfish derived Adverse Reaction (Severe, Verified 06/22/18 10:04) Causes swelling cortisone Adverse Reaction (Intermediate, Verified 06/22/18 10:04) swelling hydralazine Adverse Reaction (Intermediate, Verified 06/22/18 10:04) weakness Beta-Blockers (Beta-Adrenergic Bloc Adverse Reaction (Verified 06/22/18 10:04) Other WHEEZING, shaking, passes out prednisone Adverse Reaction (Verified 06/22/18 10:04) Swelling CARDURA Allergy (Uncoded 06/22/18 10:04) Other PT NOT SURE- POSSIBLE SWELLING NORVASC Allergy (Uncoded 06/22/18 10:04) Swelling SCALLOPS Allergy (Uncoded 06/22/18 10:04) Swelling SULFA Allergy (Uncoded 06/22/18 10:04) Other SPOTS IN MOUTH/SORE MOUTH ATIVAN Adverse Reaction (Uncoded 06/22/18 10:04) Other HALLUCINATIONS METATOPOLOL TARTATE Adverse Reaction (Uncoded 06/22/18 10:04) Other Home Medications: Ambulatory Orders Medication Instructions Recorded Insulin Aspart [Novolog Flexpen] 10 units SC TIDCM 09/20/14 Albuterol Inhaler [Ventolin Hfa] 2 puff INHALATION Q4H PRN PRN #1 10/27/14 inhaler Calcitriol [Rocaltrol] 0.25 mcg PO MOWEFR 01/16/17 Lisinopril [Zestril] 20 mg PO DAILY 01/16/17 insulin glargine (U-100) 100 50 units SC BREAKFAST 07/15/17 unit/mL (3 mL) subcutaneous pen potassium chloride ER 10 mEq 10 meq PO QDAY 11/25/17 capsule,extended release Aspirin E.C. [Ecotrin] 81 mg PO QHS 01/07/18 Lecithin 1,200 mg PO QHS 01/08/18 Albuterol Aerosols [Ventolin 3 ml INHALATION BID 06/22/18 Aerosols] Amiodarone HCl 100 mg PO DAILY 06/22/18 Furosemide [Lasix] 40 mg PO BID 06/22/18 Hydrocortisone 1 applic TP DAILY 06/22/18 Levothyroxine Sodium [Synthroid] 75 mcg PO QODAY 06/22/18 Levothyroxine Sodium [Synthroid] 88 mcg PO QODAY 06/22/18 Multivit-Min/Iron/Folic/Lutein 1 tab PO DAILY 06/22/18 [Centrum Silver Women Tablet] Warfarin Sodium 3 mg PO SUTUTHSA 06/22/18 Warfarin Sodium 4 mg PO MOWEFR 06/22/18 Surgical History: Surgical History (Last Reviewed 06/22/18 @ 10:37 by JOSE ANGEL Solorio) Postsurgical percutaneous transluminal coronary angioplasty (PTCA) status (Chronic) Z98.61 PTCA of LAD ; S/P CABG x 1 (Chronic) Onset Date: 09/29/14 Z95.1 09/29/2014 CABG: SVG to distal LAD [place] Alexis per Dr. Miller History of maze procedure (Chronic) Onset Date: 09/29/14 Z98.890 09/29/2014 atricure pulmonary vein isolation MAZE with ligation of left atrial appendage per Dr. Angela Alexis History of mitral valve replacement with bioprosthetic valve (Chronic) Onset Date: 09/29/14 Z95.3 09/29/2014: MVR with 27 mm Medtronic tisue valve per Dr. Angela Alexis History of PTCA Z98.61 angioplasty with moderate in-stent stenosis of the proximal LAD Surgical History: cataract, - Smoking Status: Never smoker - *Family History Maternal Family History: Family History (Last Reviewed 06/22/18 @ 10:37 by JOSE ANGEL Solorio) Father CAD (coronary artery disease) Hypertension Myocardial infarction Sudden cardiac Hyperlipidemia Mother Breast cancer Brother Cancer Sister Breast cancer Hyperlipidemia Sister Hyperlipidemia History Items: Cancer Paternal Family History: Family History (Last Reviewed 06/22/18 @ 10:37 by JOSE ANGEL Solorio) Father CAD (coronary artery disease) Hypertension Myocardial infarction Sudden cardiac Hyperlipidemia Mother Breast cancer Brother Cancer Sister Breast cancer Hyperlipidemia Sister Hyperlipidemia History Items: Heart Disease, Stroke Sibling Family History: Family History (Last Reviewed 06/22/18 @ 10:37 by JOSE ANGEL Solorio) Father CAD (coronary artery disease) Hypertension Myocardial infarction Sudden cardiac Hyperlipidemia Mother Breast cancer Brother Cancer Sister Breast cancer Hyperlipidemia Sister Hyperlipidemia History Items: Cancer - in brother and sister Review of Systems Constitutional: Reports: Chills, Fever HEENT: Denies: Head Aches, Sinus Congestion, Sinus Drainage Cardiovascular: Reports: Chest Pain - Sharp pleuritic in nature, Edema. Denies: Palpitations Respiratory: Reports: Cough, Pleuritic Pain, Shortness of Breath, Shortness of breath upon exertion. Denies: Sputum production Gastrointestinal: Denies: Abdominal Pain, Nausea, Vomiting Genitourinary: Denies: Dysuria, Frequency, Hematuria Musculoskeletal: Reports: Joint Pain. Denies: Joint Tenderness Skin: Denies: Rash, Wounds Neurological: Denies: Numbness, Tingling, Focal weakness Psychiatric: Denies: Anxiety, Depression, Homicidal Ideations, Suicidal Ideations Hematologic/ Lymphatic: Denies: Easy Bruising, Easy Bleeding VTE Information - Inpt Only VTE Present on Admission: No VTE Mechan Device Prophylaxis: None VTE Pharm Prophylaxis ordered?: Yes Reason prophylaxis not ordered:: Procedure Not Indicated - On Coumadin Patient Problems: Active and Suspected Problems (Last Reviewed 06/22/18 @ 10:37 by JOSE ANGEL Solorio) COPD exacerbation (Acute) Acute on chronic combined systolic and diastolic CHF, NYHA class 2 (Acute) - Physical Exam General: Alert, Oriented x3, Cooperative, - - Discomfort secondary to persistent cough. HEENT: Atraumatic, PERRLA, EOMI, Normocephalic Oral: Dry Mucosa Neck: Supple, No JVD, Negative Carotid Bruits Lungs: Diminished - Air entry diffusely diminished, Rhonchi - ., Short of Breath, Tachypneic, Using Accessory Muscles, Wheezes Cardiovascular: Regular rate, No murmurs Abdomen: Bowel Sounds Present, Soft, Non Tender, Non-Distended Extremities: Capillary Refill Less than 3 Seconds, Edema Skin: No rashes, No breakdown Musculoskeletal: No Tenderness to Palpation of Joints or Extremities, Arthritic Changes, Muscle Wasting Neurological: Cranial nerves II-XII grossly intact, Neuro grossly intact Psych/Mental Status: Normal Affect, Appropriate Vital Signs Temp Pulse Resp BP Pulse Ox 98 F 53 L 16 137/61 H 99 06/22/18 18:17 06/22/18 18:54 06/22/18 18:17 06/22/18 18:17 06/22/18 18:17 Oxygen Flow Rate (L/min) 3 Oxygen Delivery Method Nasal Cannula Weight: 176 lb 12.972 oz Body Mass Index (BMI) 31.3 Finger Stick Blood Glucose 257 Laboratory Tests Past 24 Hrs 06/22/18 06/22/18 06/22/18 11:13 11:13 11:13 WBC 7.0 RBC 4.61 Hgb 12.0 Hct 37.7 MCV 81.8 MCH 26.0 L MCHC 31.8 L RDW 16.4 H RDW Differential 49.3 H Plt Count 130 L MPV 10.6 Immature Gran % (Auto) 0.100 Neut % (Auto) 64.3 Lymph % (Auto) 10.3 L [place] % (Auto) 4.9 Eos % (Auto) 19.8 H Baso % (Auto) 0.6 Absolute Neuts (auto) 4.5 Absolute Lymphs (auto) 0.72 L Total Counted Not Reportable Sodium 139 Potassium 4.4 Chloride 101 Carbon Dioxide 27.0 Anion Gap 11 BUN 33 H Creatinine 2.04 H Estim Creat Clear Calc 19.10 Est GFR (MDRD) Af Amer 30 L Est GFR (MDRD) Non-Af 25 L BUN/Creatinine Ratio 16.2 Glucose 231 H Calcium 8.5 Troponin I 0.017 B-Natriuretic Peptide 531.1 H Assessment/Plan All Active Problems (Last Reviewed 06/22/18 @ 10:37 by JOSE ANGEL Solorio) COPD exacerbation (Acute) Acute on chronic combined systolic and diastolic CHF, NYHA class 2 (Acute) Subdural bleeding (Acute) Mitral stenosis (Acute) Encounter for long-term current use of high risk medication (Acute) Paroxysmal atrial fibrillation (Acute) Dermatitis of lower extremity (Acute) Syncope (Acute) Edema of both legs (Acute) Type 2 diabetes mellitus without complications (Acute) Syncope (Acute) Possible TIA/stroke (Acute) Hemorrhagic stroke (Resolved) UTI (urinary tract infection) (Resolved) The patient is a 78 year old F with history of COPD, chronic combined heart failure, mitral valve replacement in 2014, bioprosthetic, coronary artery disease came to ER with progressive worsening of shortness of breath for about 3 weeks. Patient also has worsening of cough with a small amount of mucus sputum. She denies chest pressure but has lower rib pain on persistent coughing. Patient was treated with prednisone and amoxicillin for about 4-5 days of possible bronchitis but she did not feel better. Bilateral lower extremity edema which is more than her normal baseline for last 3-4 weeks. In ED, chest x-ray shows mild COPD with increased bronchovascular markings. EKG shows sinus bradycardia 56 bpm, prolonged QTC, 503 ms with left posterior fascicular block. Patient is on Coumadin but no INR ordered in ER. Patient has creatinine 2.0, baseline around 1.8-2.5; BUN 33, baseline around 35. Bicarb 27. Anion gap 11. 1. Acute hypoxic respiratory failure probably secondary to COPD EXACERBATION AND HF exacerbation: The patient is being admitted on PCU. Oxygen therapy per protocol. BiPAP if needed. 2. COPD exacerbation: Started on bronchodilator, DuoNeb [id number], albuterol as needed, IV Solu-Medrol, incentive spirometry, chest physiotherapy and doxycycline. Patient is not candidate of Zithromax and his QTC is prolonged 503 ms. 3. Coronary artery disease status post single-vessel CABG in September 2014 acute on chronic combined systolic and diastolic heart failure: Patient had echo in January 2018 which shows EF 50% with systolic function lower limits of normal, severe stage III diastolic dysfunction. Moderate concentric LVH. Mild global right ventricular systolic dysfunction. Right and left atrium mildly enlarged. Stable appearing bioprosthetic mitral valve apparatus. Mild to moderate TR, RVSP 51 mmHg suggestive of moderate pulmonary hypertension. No pericardial effusion. Normal IVC. Patient was on Lasix 40 mg twice daily which is changed to 40 mg IV twice daily. Monitor intake and output. Can titrate the dose of diuretic as needed. Hold lisinopril as creatinine is 2.0. Continue baby aspirin, amiodarone and warfarin. 4. Paroxysmal A. fib with mitral stenosis status post mitral valve replacement, bioprosthetic valve in September 2014: Patient is on Coumadin. PT/INR ordered. Currently she is in sinus rhythm. Continue amiodarone and warfarin. 5. Diabetes mellitus type 2: Glucose and BMP 231. Accu-Cheks before meals and at bedtime and cover with Humalog sliding scale. A1c tomorrow a.m. 6. Hypothyroidism: TSH and free T4 tomorrow a.m. Continue home dose of levothyroxine. 7. Other chronic comorbidities hypertension, dyslipidemia, ischemic stroke, CKD stage IV, anemia of chronic disease, sinus bradycardia and chronic thrombocytopenia: Home medication reconciliation done. Currently H&H 12.0/37.7. Platelet count is 130. Last platelet count was 133 and March 2018. It is low in 120s-130s since September 2016. Code Visit Inpatient E&M: 44490 Init Hosp L3
--- NOTE | 2018-06-22 20:22 | EKG12_ITS ---
Test Reason : SOB Blood Pressure : / mmHG Vent. Rate : 054 BPM Atrial Rate : 054 BPM P-R Int : 198 ms QRS Dur : 094 ms QT Int : 514 ms P-R-T Axes : 037 110 127 degrees QTc Int : 487 ms Sinus bradycardia Left posterior fascicular block Nonspecific ST and T wave abnormality Abnormal ECG Confirmed by SAJAN IZAGUIRRE, KENDRICK ([id number]), editorial specialist JACK PINTO ([id number] on 06/24/2018 3:34:06 PM Referred By: DR PIERSON Confirmed By:KENDRICK MOELLER MD
[2018-06-22 21:35] LABS: International Normalized Ratio 2.5; Prothrombin Time (Protime)PT. 27.2 SECONDS (11.7-14.9)
[2018-06-22] MEDS: guaiFENesin 1,200 MG Tablet 1200 MG PO (21:52)
[2018-06-22] MEDS: Doxycycline 100 MG CAPSULE PO (21:52)
[2018-06-22] MEDS: Aspirin E.C. 81 MG Tablet PO (21:52)
[2018-06-22] MEDS: 0.9% NaCl Peripheral Flush Adult/Peds IV (21:52)
[2018-06-22 23:35] LABS: Bedside Glucose 170 mg/dL (70-110)
[2018-06-23] VITALS (20 sets, daily range): BP systolic 129–160; BP diastolic 55–68; PULSE 51–117; RESP 15–21; TEMP 36.1–37.1; O2SAT 90–97
[2018-06-23] MEDS: Ipratropium/Albuterol Sulfate 3 ML AMPUL.NEB INHALATION ×6 (00:54→20:11)
[2018-06-23] MEDS: Levothyroxine 75 MCG Tablet PO (06:06)
[2018-06-23] MEDS: 0.9% NaCl Peripheral Flush Adult/Peds IV ×2 (06:06→21:43)
[2018-06-23 06:38] LABS: Anion Gap 10 (5-15); BUN 37 mg/dL (7-18); BUN/Creat Ratio 16.9 RATIO (10-20); Calcium,Total 8.6 mg/dL (8.5-10.1); Chloride 101 mmol/L (98-107); Cholesterol 194 mg/dL (200); Creatinine, Serum 2.19 mg/dL (0.55-1.02); EST Glomerular Filtration Rate 23 mL/min (>60); Est Glom Filt Rate - Afr Amer 28 mL/min (>60); Estimated Creatinine Clearance 17.01 ml/min; Glucose 212 mg/dL (74-106); High Density Lipoprotein 59 mg/dL; Potassium 4.7 mmol/L (3.5-5.1); Sodium Level 138 mmol/L (136-145); Thyroid Stim Hormone (TSH) 2.23 uIU/mL (0.358-3.74); Triglycerides 63 mg/dL; Very Low Density Lipoprotein 13 mg/dL (5-40)
[2018-06-23 06:57] LABS: International Normalized Ratio 2.6; Prothrombin Time (Protime)PT. 27.8 SECONDS (11.7-14.9)
[2018-06-23 07:06] LABS: Bedside Glucose 234 mg/dL (70-110)
[2018-06-23 07:06] LABS: Bedside Glucose 231 mg/dL (70-110)
[2018-06-23] MEDS: Multivitamins,Ther W-Minerals Tablet 1 TABLET PO (09:06)
[2018-06-23] MEDS: Doxycycline 100 MG CAPSULE PO ×2 (09:10→21:43)
[2018-06-23] MEDS: guaiFENesin 1,200 MG Tablet 1200 MG PO ×2 (09:11→21:43)
[2018-06-23] MEDS: Furosemide 40 MG/4 ML Vial IV ×2 (09:11→17:06)
[2018-06-23] MEDS: Amiodarone 200 MG Tablet 100 MG PO (09:11)
[2018-06-23] MEDS: Hydrocortisone 2.5% Crm 1 APPLIC TOPICAL (09:20)
[2018-06-23] MEDS: Insulin Lispro 100 UNIT/ML INSULN.PEN 10 UNIT SC ×2 (09:20→11:50)
--- NOTE | 2018-06-23 11:10 | PCM.PN.HOSP ---
Patient Problems: Active and Suspected Problems (Last Reviewed 06/22/18 @ 10:37 by JOSE ANGEL Solorio) COPD exacerbation (Acute) Acute on chronic combined systolic and diastolic CHF, NYHA class 2 (Acute) Subjective: Continues to have a non-productive cough and SOB. Feels that her ankles are a little swollen Vitals/I&O's: Vital Signs Temp Pulse Resp BP Pulse Ox 98 F 62 18 152/65 H 93 06/23/18 09:03 06/23/18 09:03 06/23/18 09:03 06/23/18 09:03 06/23/18 09:33 Oxygen Flow Rate (L/min) 2 Oxygen Delivery Method Nasal Cannula Weight: 176 lb 12.972 oz Body Mass Index (BMI) 31.3 Finger Stick Blood Glucose 257 Intake and Output for Last 24 Hours 06/21/18 06/22/18 06/23/18 23:59 23:59 23:59 Intake Total 978 / 978 95 / 95 Output Total 0 / 0 Balance 978 / 978 95 / 95 General: Alert, Oriented x3, Cooperative, No apparent distress HEENT: Atraumatic, EOMI, Normocephalic Oral: Moist Mucosa Neck: Supple, No JVD Lungs: Diminished, Wheezes Cardiovascular: Regular rate, Regular Rhythm, Normal S1, Normal S2, No murmurs - interference from lung sounds Abdomen: Soft, Non Tender, Non-Distended, No Hepato-splenomegaly Extremities: Edema - 1+ pitting edema Skin: No rashes, No breakdown Neurological: Neuro grossly intact, Sensory exam intact to light touch and pain Psych/Mental Status: Normal Affect, Appropriate Laboratory Results 06/22/18 11:13: WBC 7.0, RBC 4.61, Hgb 12.0, Hct 37.7, MCV 81.8, MCH 26.0 L, MCHC 31.8 L, RDW 16.4 H, RDW Differential 49.3 H, Plt Count 130 L, MPV 10.6, Immature Gran % (Auto) 0.100, Neut % (Auto) 64.3, Lymph % (Auto) 10.3 L, [place] % (Auto) 4.9, Eos % (Auto) 19.8 H, Baso % (Auto) 0.6, Absolute Neuts (auto) 4.5, Absolute Lymphs (auto) 0.72 L, Total Counted Not Reportable 06/22/18 11:13: Sodium 139, Potassium 4.4, Chloride 101, Carbon Dioxide 27.0, Anion Gap 11, BUN 33 H, Creatinine 2.04 H, Estim Creat Clear Calc 19.10, Est GFR (MDRD) Af Amer 30 L, Est GFR (MDRD) Non-Af 25 L, BUN/Creatinine Ratio 16.2, Glucose 231 H, Calcium 8.5, Troponin I 0.017 06/22/18 11:13: B-Natriuretic Peptide 531.1 H 06/22/18 20:57: PT 27.2 H, INR 2.5 06/22/18 20:57: Troponin I 0.021 06/22/18 21:28: POC Glucose 170 H 06/22/18 23:17: Troponin I 0.023 06/23/18 02:13: Troponin I < 0.015 06/23/18 05:25: PT 27.8 H, INR 2.6 06/23/18 05:25: Sodium 138, Potassium 4.7, Chloride 101, Carbon Dioxide 27.0, Anion Gap 10, BUN 37 H, Creatinine 2.19 H, Estim Creat Clear Calc 17.01, Est GFR (MDRD) Af Amer 28 L, Est GFR (MDRD) Non-Af 23 L, BUN/Creatinine Ratio 16.9, Glucose 212 H, Calcium 8.6, Triglycerides 63, Cholesterol 194, LDL Cholesterol 122, VLDL Cholesterol 13, HDL Cholesterol 59, TSH 2.23 06/23/18 06:17: POC Glucose 231 H 06/23/18 06:44: POC Glucose 234 H Current Medications Acetaminophen (Tylenol) 650 mg PO Q6H PRN PRN PRN Reason: Mild Pain (scale 0-3)/T>100.7 Al Hydroxide/Mg Hydroxide (Mylanta Ii) 30 ml PO Q6H PRN PRN PRN Reason: Gastric Burning Albuterol Sulfate (Ventolin Aerosols) 2.5 mg INHALATION Q2H PRN PRN PRN Reason: SHORTNESS OF BREATH Albuterol/Ipratropium (Duoneb) 3 ml INHALATION Q4H.RT JOANNE Last Admin: 06/23/18 10:31 Dose: 3 ml Amiodarone HCl (Cordarone) 100 mg PO DAILY [facility] Last Admin: 06/23/18 09:11 Dose: 100 mg Aspirin (Ecotrin) 81 mg PO QHS [facility] Last Admin: 06/22/18 21:52 Dose: 81 mg Bisacodyl (Dulcolax) 10 mg RECTAL DAILY PRN PRN PRN Reason: Constipation Calcitriol (Rocaltrol) 0.25 mcg PO MOWEFR [facility] Docusate Sodium (Colace) 200 mg PO BID PRN PRN PRN Reason: Constipation Doxycycline Monohydrate (Doxycycline) 100 mg PO BID [facility] Last Admin: 06/23/18 09:10 Dose: 100 mg Furosemide (Lasix) 40 mg IV BIDLX [facility] Last Admin: 06/23/18 09:11 Dose: 40 mg Guaifenesin (Mucinex) 1,200 mg PO BID [facility] Last Admin: 06/23/18 09:11 Dose: 1,200 mg Hydrocortisone (Hytone) 1 applic TOPICAL DAILY [facility] Last Admin: 06/23/18 09:20 Dose: 1 applicatio Insulin Glargine (Lantus (Bkc)) 50 units SC BREAKFAST [facility] Last Admin: 06/23/18 09:06 Dose: 50 u Insulin Human Lispro (Humalog Kwikpen (Bkc)) 10 unit SC TIDCM [facility] Last Admin: 06/23/18 09:20 Dose: 10 u Levothyroxine Sodium (Synthroid) 75 mcg PO DAILY@0600 [facility] Last Admin: 06/23/18 06:06 Dose: 75 mcg Methylprednisolone (Solu-Medrol) 40 mg IV Q8 [facility] Last Admin: 06/23/18 06:06 Dose: 40 mg Morphine Sulfate () 1 - 2 mg IV Q4H PRN PRN PRN Reason: SEVERE PAIN (6-10/10) Multivitamins/Minerals (Multivitamin With Minerals) 1 tablet PO DAILY@0800 [facility] Last Admin: 06/23/18 09:06 Dose: 1 tablet Ondansetron HCl (Zofran) 4 mg IV Q6H PRN PRN PRN Reason: Nausea Oxycodone HCl (Oxyir) 5 mg PO Q4H PRN PRN PRN Reason: Moderate Pain (pain scale 4-5) Potassium Chloride (K-Dur) 10 meq PO DAILY [facility] Last Admin: 06/23/18 09:10 Dose: 10 meq Warfarin Sodium (Coumadin (Pbkc)) 3 mg PO SuTuThSa@1700 [facility] Warfarin Sodium (Coumadin (Pbkc)) 4 mg PO MoWeFr@1700 [facility] Last Admin: 06/22/18 21:51 Dose: 4 mg Zolpidem Tartrate (Ambien (Generic)) 5 mg PO QHS PRN PRN PRN Reason: INSOMNIA Medical Necessity - Tobacco Use Smoking Status: Never smoker Assessment/Plan All Active Problems (Last Reviewed 06/22/18 @ 10:37 by Vicky Arzate, AUTO CLEANER-C) COPD exacerbation (Acute) Acute on chronic combined systolic and diastolic CHF, NYHA class 2 (Acute) Subdural bleeding (Acute) Mitral stenosis (Acute) Encounter for long-term current use of high risk medication (Acute) Paroxysmal atrial fibrillation (Acute) Dermatitis of lower extremity (Acute) Syncope (Acute) Edema of both legs (Acute) Type 2 diabetes mellitus without complications (Acute) Syncope (Acute) Possible TIA/stroke (Acute) Hemorrhagic stroke (Resolved) UTI (urinary tract infection) (Resolved) 1. Acute hypoxic respiratory failure 2/2 COPD exacerbation and acute on chronic combined CHF/CAD s/p CABG - C/w duonebs and solu-medrol - She is on doxy cycline given her QT is prolonged and she would not tolerate azithromycin - Echo in january with an EF of 50% and stage 3 diastolic dysfunction, right systolic dysfunction with elevated RVSP and moderate pulm HTN - Valves are ok - C/w IV diuresis - I&O and daily weights 2. paroxysmal a-fib/HTN/HLD/H/o CVA - C/w coumadin, INR 2.6 - C/w amiodarone, and Aspirin 3. 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 Hypothyroidims - TSH is 2.23 - C/w synthroid DVT: Coumadin Code Visit Inpatient E&M: 05562 Subs Hosp L2
--- NOTE | 2018-06-23 11:20 | PN_ITS ---
Patient Problems: Active and Suspected Problems (Last Reviewed 06/22/18 @ 10:37 by JOSE ANGEL Solorio) COPD exacerbation (Acute) Acute on chronic combined systolic and diastolic CHF, NYHA class 2 (Acute) Subjective: Continues to have a non-productive cough and SOB. Feels that her ankles are a little swollen Vitals/I&O's: Vital Signs Temp Pulse Resp BP Pulse Ox 98 F 62 18 152/65 H 93 06/23/18 09:03 06/23/18 09:03 06/23/18 09:03 06/23/18 09:03 06/23/18 09:33 Oxygen Flow Rate (L/min) 2 Oxygen Delivery Method Nasal Cannula Weight: 176 lb 12.972 oz Body Mass Index (BMI) 31.3 Finger Stick Blood Glucose 257 Intake and Output for Last 24 Hours 06/21/18 06/22/18 06/23/18 23:59 23:59 23:59 Intake Total 978 / 978 95 / 95 Output Total 0 / 0 Balance 978 / 978 95 / 95 General: Alert, Oriented x3, Cooperative, No apparent distress HEENT: Atraumatic, EOMI, Normocephalic Oral: Moist Mucosa Neck: Supple, No JVD Lungs: Diminished, Wheezes Cardiovascular: Regular rate, Regular Rhythm, Normal S1, Normal S2, No murmurs - interference from lung sounds Abdomen: Soft, Non Tender, Non-Distended, No Hepato-splenomegaly Extremities: Edema - 1+ pitting edema Skin: No rashes, No breakdown Neurological: Neuro grossly intact, Sensory exam intact to light touch and pain Psych/Mental Status: Normal Affect, Appropriate Laboratory Results 06/22/18 11:13: WBC 7.0, RBC 4.61, Hgb 12.0, Hct 37.7, MCV 81.8, MCH 26.0 L, MCHC 31.8 L, RDW 16.4 H, RDW Differential 49.3 H, Plt Count 130 L, MPV 10.6, Immature Gran % (Auto) 0.100, Neut % (Auto) 64.3, Lymph % (Auto) 10.3 L, [place] % (Auto) 4.9, Eos % (Auto) 19.8 H, Baso % (Auto) 0.6, Absolute Neuts (auto) 4.5, Absolute Lymphs (auto) 0.72 L, Total Counted Not Reportable 06/22/18 11:13: Sodium 139, Potassium 4.4, Chloride 101, Carbon Dioxide 27.0, Anion Gap 11, BUN 33 H, Creatinine 2.04 H, Estim Creat Clear Calc 19.10, Est GFR (MDRD) Af Amer 30 L, Est GFR (MDRD) Non-Af 25 L, BUN/Creatinine Ratio 16.2, Glucose 231 H, Calcium 8.5, Troponin I 0.017 06/22/18 11:13: B-Natriuretic Peptide 531.1 H 06/22/18 20:57: PT 27.2 H, INR 2.5 06/22/18 20:57: Troponin I 0.021 06/22/18 21:28: POC Glucose 170 H 06/22/18 23:17: Troponin I 0.023 06/23/18 02:13: Troponin I < 0.015 06/23/18 05:25: PT 27.8 H, INR 2.6 06/23/18 05:25: Sodium 138, Potassium 4.7, Chloride 101, Carbon Dioxide 27.0, Anion Gap 10, BUN 37 H, Creatinine 2.19 H, Estim Creat Clear Calc 17.01, Est GFR (MDRD) Af Amer 28 L, Est GFR (MDRD) Non-Af 23 L, BUN/Creatinine Ratio 16.9, Glucose 212 H, Calcium 8.6, Triglycerides 63, Cholesterol 194, LDL Cholesterol 122, VLDL Cholesterol 13, HDL Cholesterol 59, TSH 2.23 06/23/18 06:17: POC Glucose 231 H 06/23/18 06:44: POC Glucose 234 H Current Medications Acetaminophen (Tylenol) 650 mg PO Q6H PRN PRN PRN Reason: Mild Pain (scale 0-3)/T>100.7 Al Hydroxide/Mg Hydroxide (Mylanta Ii) 30 ml PO Q6H PRN PRN PRN Reason: Gastric Burning Albuterol Sulfate (Ventolin Aerosols) 2.5 mg INHALATION Q2H PRN PRN PRN Reason: SHORTNESS OF BREATH Albuterol/Ipratropium (Duoneb) 3 ml INHALATION Q4H.RT JOANNE Last Admin: 06/23/18 10:31 Dose: 3 ml Amiodarone HCl (Cordarone) 100 mg PO DAILY [facility] Last Admin: 06/23/18 09:11 Dose: 100 mg Aspirin (Ecotrin) 81 mg PO QHS [facility] Last Admin: 06/22/18 21:52 Dose: 81 mg Bisacodyl (Dulcolax) 10 mg RECTAL DAILY PRN PRN PRN Reason: Constipation Calcitriol (Rocaltrol) 0.25 mcg PO MOWEFR [facility] Docusate Sodium (Colace) 200 mg PO BID PRN PRN PRN Reason: Constipation Doxycycline Monohydrate (Doxycycline) 100 mg PO BID [facility] Last Admin: 06/23/18 09:10 Dose: 100 mg Furosemide (Lasix) 40 mg IV BIDLX [facility] Last Admin: 06/23/18 09:11 Dose: 40 mg Guaifenesin (Mucinex) 1,200 mg PO BID [facility] Last Admin: 06/23/18 09:11 Dose: 1,200 mg Hydrocortisone (Hytone) 1 applic TOPICAL DAILY [facility] Last Admin: 06/23/18 09:20 Dose: 1 applicatio Insulin Glargine (Lantus (Bkc)) 50 units SC BREAKFAST [facility] Last Admin: 06/23/18 09:06 Dose: 50 u Insulin Human Lispro (Humalog Kwikpen (Bkc)) 10 unit SC TIDCM [facility] Last Admin: 06/23/18 09:20 Dose: 10 u Levothyroxine Sodium (Synthroid) 75 mcg PO DAILY@0600 [facility] Last Admin: 06/23/18 06:06 Dose: 75 mcg Methylprednisolone (Solu-Medrol) 40 mg IV Q8 [facility] Last Admin: 06/23/18 06:06 Dose: 40 mg Morphine Sulfate () 1 - 2 mg IV Q4H PRN PRN PRN Reason: SEVERE PAIN (6-10/10) Multivitamins/Minerals (Multivitamin With Minerals) 1 tablet PO DAILY@0800 [facility] Last Admin: 06/23/18 09:06 Dose: 1 tablet Ondansetron HCl (Zofran) 4 mg IV Q6H PRN PRN PRN Reason: Nausea Oxycodone HCl (Oxyir) 5 mg PO Q4H PRN PRN PRN Reason: Moderate Pain (pain scale 4-5) Potassium Chloride (K-Dur) 10 meq PO DAILY [facility] Last Admin: 06/23/18 09:10 Dose: 10 meq Warfarin Sodium (Coumadin (Pbkc)) 3 mg PO SuTuThSa@1700 [facility] Warfarin Sodium (Coumadin (Pbkc)) 4 mg PO MoWeFr@1700 [facility] Last Admin: 06/22/18 21:51 Dose: 4 mg Zolpidem Tartrate (Ambien (Generic)) 5 mg PO QHS PRN PRN PRN Reason: INSOMNIA Medical Necessity - Tobacco Use Smoking Status: Never smoker Assessment/Plan All Active Problems (Last Reviewed 06/22/18 @ 10:37 by Vicky Arzate, WEIGHBRIDGE OPERATOR-C) COPD exacerbation (Acute) Acute on chronic combined systolic and diastolic CHF, NYHA class 2 (Acute) Subdural bleeding (Acute) Mitral stenosis (Acute) Encounter for long-term current use of high risk medication (Acute) Paroxysmal atrial fibrillation (Acute) Dermatitis of lower extremity (Acute) Syncope (Acute) Edema of both legs (Acute) Type 2 diabetes mellitus without complications (Acute) Syncope (Acute) Possible TIA/stroke (Acute) Hemorrhagic stroke (Resolved) UTI (urinary tract infection) (Resolved) 1. Acute hypoxic respiratory failure 2/2 COPD exacerbation and acute on chronic combined CHF/CAD s/p CABG - C/w duonebs and solu-medrol - She is on doxy cycline given her QT is prolonged and she would not tolerate azithromycin - Echo in january with an EF of 50% and stage 3 diastolic dysfunction, right systolic dysfunction with elevated RVSP and moderate pulm HTN - Valves are ok - C/w IV diuresis - I&O and daily weights 2. paroxysmal a-fib/HTN/HLD/H/o CVA - C/w coumadin, INR 2.6 - C/w amiodarone, and Aspirin 3. 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 Hypothyroidims - TSH is 2.23 - C/w synthroid DVT: Coumadin Code Visit Inpatient E&M: 14236 Subs Hosp L2
[2018-06-23 12:01] LABS: Bedside Glucose 492 mg/dL (70-110)
--- NOTE | 2018-06-23 12:35 | CASEMGMT ---
RN CM Face to Face with patient for initial transition planning/care coordination assessment. RN CM introduced self and role at [facility]. Patient sitting in chair, alert and oriented. Patient willing to participate in assessment and is able to answer all questions appropriately. Care providers, pharmacy, and demographics verified. Patient wishes to discharge home, denies need for home health at this time. Patient states she has no further needs or concerns at this time. CM to follow for discharge planning needs that may arise. PCP: Saige Specialists: Jeannie inspector process Preferred Pharmacy: [facility] Insurance: [employer] [facility]it[facility] Living Will/HPOA: Yes, Chris Rothman LNOK: Living Arrangements: Patient lives with in 1 story house with 3 steps to enter home. Transportation: Self/ DME/HHC: Can has walker, rollator, cpap, and an old nebulizer. Patient requesting new nebulizer. Patient also states her cpap tubing has not been change. CM to request new tubing and mask from [facility]. Disposition Plan: Patient to discharge home with family support and follow-up plans in place. Nette BECKFORD, RN, CM
[2018-06-23 13:56] LABS: Bedside Glucose > 500 mg/dL (70-110)
[2018-06-23 14:28] LABS: Glucose 496 mg/dL (74-106)
[2018-06-23] MEDS: Insulin Lispro 100 UNIT/ML INSULN.PEN 20 UNIT SC ×2 (15:30→17:03)
[2018-06-23 17:26] LABS: Bedside Glucose 406 mg/dL (70-110)
[2018-06-23] MEDS: Aspirin E.C. 81 MG Tablet PO (21:43)
[2018-06-24] VITALS (21 sets, daily range): BP systolic 137–155; BP diastolic 47–72; PULSE 53–136; RESP 16–22; TEMP 36.6–36.9; O2SAT 92–99
[2018-06-24] MEDS: Mag Hydrox/Al Hydrox/Simeth 30 ML UDC PO ×2 (00:10→20:57)
[2018-06-24 02:11] LABS: Bedside Glucose 268 mg/dL (70-110)
[2018-06-24] MEDS: Ipratropium/Albuterol Sulfate 3 ML AMPUL.NEB INHALATION ×6 (03:30→23:13)
[2018-06-24] MEDS: 0.9% NaCl Peripheral Flush Adult/Peds IV ×5 (05:39→20:57)
[2018-06-24] MEDS: Levothyroxine 75 MCG Tablet PO (05:40)
[2018-06-24 06:09] LABS: Prothrombin Time (Protime)PT. 37.8 SECONDS (11.7-14.9)
[2018-06-24 06:22] LABS: International Normalized Ratio 3.8
[2018-06-24 06:27] LABS: Anion Gap 9 (5-15); BUN 64 mg/dL (7-18); BUN/Creat Ratio 27.1 RATIO (10-20); Calcium,Total 8.9 mg/dL (8.5-10.1); Chloride 97 mmol/L (98-107); Creatinine, Serum 2.36 mg/dL (0.55-1.02); EST Glomerular Filtration Rate 21 mL/min (>60); Est Glom Filt Rate - Afr Amer 26 mL/min (>60); Estimated Creatinine Clearance 15.79 ml/min; Glucose 322 mg/dL (74-106); Potassium 5.1 mmol/L (3.5-5.1); Sodium Level 133 mmol/L (136-145)
[2018-06-24 06:38] LABS: Color, Urine Yellow (Yellow); Glucose, Dipstick Normal (Normal); Ketone-Dipstick Negative (Negative); Leukocyte Esterase-Dipstick Negative /ul (Negative); Nitrite-Dipstick Negative (Negative); Occult Blood-Urine Negative /ul (Negative); Protein-Dipstick Negative (Negative); Specific Gravity, Urine 1.015 (1.002-1.030); Urine Bilirubin Dipstick Negative (Negative); Urine Clarity Clear (Clear); Urine Urobilinogen Normal (Normal)
[2018-06-24 07:11] LABS: Bedside Glucose 319 mg/dL (70-110)
[2018-06-24] MEDS: Insulin Lispro 100 UNIT/ML INSULN.PEN 20 UNIT SC ×3 (09:55→17:53)
[2018-06-24] MEDS: Hydrocortisone 2.5% Crm 1 APPLIC TOPICAL (09:59)
[2018-06-24] MEDS: Amiodarone 200 MG Tablet 100 MG PO (09:59)
[2018-06-24] MEDS: Doxycycline 100 MG CAPSULE PO ×2 (09:59→20:56)
[2018-06-24] MEDS: Multivitamins,Ther W-Minerals Tablet 1 TABLET PO (09:59)
[2018-06-24] MEDS: Furosemide 40 MG/4 ML Vial IV ×2 (10:00→17:59)
[2018-06-24] MEDS: guaiFENesin 1,200 MG Tablet 1200 MG PO ×2 (10:00→20:56)
[2018-06-24] MEDS: Calcitriol 0.25 MCG Capsule PO (10:00)
[2018-06-24 11:45] LABS: Bedside Glucose 433 mg/dL (70-110)
--- NOTE | 2018-06-24 13:42 | PCM.PN.HOSP ---
Patient Problems: Active and Suspected Problems (Last Reviewed 06/22/18 @ 10:37 by JOSE ANGEL Solorio) COPD exacerbation (Acute) Acute on chronic combined systolic and diastolic CHF, NYHA class 2 (Acute) Subjective: Says she is breathing with less audible wheezing. Swelling is also improved. Vitals/I&O's: Vital Signs Temp Pulse Resp BP Pulse Ox 98.2 F 60 20 H 150/53 H 99 06/24/18 09:40 06/24/18 12:08 06/24/18 12:08 06/24/18 09:40 06/24/18 12:08 Oxygen Flow Rate (L/min) 2 Oxygen Delivery Method Nasal Cannula Weight: 176 lb 12.972 oz Body Mass Index (BMI) 31.3 Finger Stick Blood Glucose 257 Intake and Output for Last 24 Hours 06/22/18 06/23/18 06/24/18 23:59 23:59 23:59 Intake Total 978 / 978 695 / 695 500 / 500 Output Total 0 / 0 300 / 300 Balance 978 / 978 695 / 695 200 / 200 General: Alert, Oriented x3, Cooperative, No apparent distress HEENT: Atraumatic, EOMI, Normocephalic Oral: Moist Mucosa Neck: Supple, No JVD Lungs: Diminished, Wheezes Cardiovascular: Regular rate, Regular Rhythm, Normal S1, Normal S2, No murmurs - interference from lung sounds Abdomen: Soft, Non Tender, Non-Distended, No Hepato-splenomegaly Extremities: Edema - trace-1+ pitting edema Skin: No rashes, No breakdown Neurological: Neuro grossly intact, Sensory exam intact to light touch and pain Psych/Mental Status: Normal Affect, Appropriate Microbiology Past 72 Hours 06/22/18 21:30 Mucosa - Nose Respiratory Panel (PCR) - Final Laboratory Results 06/23/18 13:48: POC Glucose > 500 H* 06/23/18 14:00: Glucose 496 H* 06/23/18 17:01: POC Glucose 406 H 06/23/18 21:53: POC Glucose 268 H 06/24/18 05:20: PT 37.8 H, INR 3.8 H* 06/24/18 05:20: Sodium 133 L, Potassium 5.1, Chloride 97 L, Carbon Dioxide 27.0, Anion Gap 9, BUN 64 H, Creatinine 2.36 H, Estim Creat Clear Calc 15.79, Est GFR (MDRD) Af Amer 26 L, Est GFR (MDRD) Non-Af 21 L, BUN/Creatinine Ratio 27.1 H, Glucose 322 H, Calcium 8.9 06/24/18 06:00: Urine Color Yellow, Urine Clarity Clear, Urine pH 5.0, Ur Specific Beauty 1.015, Urine Protein Negative, Urine Glucose (UA) Normal, Urine Ketones Negative, Urine Occult Blood Negative, Urine Nitrite Negative, Urine Bilirubin Negative, Urine Urobilinogen Normal, Ur Leukocyte Esterase Negative 06/24/18 07:02: POC Glucose 319 H 06/24/18 11:16: POC Glucose 433 H Current Medications Acetaminophen (Tylenol) 650 mg PO Q6H PRN PRN PRN Reason: Mild Pain (scale 0-3)/T>100.7 Al Hydroxide/Mg Hydroxide (Mylanta Ii) 30 ml PO Q6H PRN PRN PRN Reason: Gastric Burning Last Admin: 06/24/18 00:10 Dose: 30 ml Albuterol Sulfate (Ventolin Aerosols) 2.5 mg INHALATION Q2H PRN PRN PRN Reason: SHORTNESS OF BREATH Albuterol/Ipratropium (Duoneb) 3 ml INHALATION Q4H.RT [facility] Last Admin: 06/24/18 11:20 Dose: 3 ml Amiodarone HCl (Cordarone) 100 mg PO DAILY [facility] Last Admin: 06/24/18 09:59 Dose: 100 mg Aspirin (Ecotrin) 81 mg PO QHS [facility] Last Admin: 06/23/18 21:43 Dose: 81 mg Bisacodyl (Dulcolax) 10 mg RECTAL DAILY PRN PRN PRN Reason: Constipation Calcitriol (Rocaltrol) 0.25 mcg PO MOWEFR [facility] Last Admin: 06/24/18 10:00 Dose: 0.25 mcg Docusate Sodium (Colace) 200 mg PO BID PRN PRN PRN Reason: Constipation Doxycycline Monohydrate (Doxycycline) 100 mg PO BID [facility] Last Admin: 06/24/18 09:59 Dose: 100 mg Furosemide (Lasix) 40 mg IV BIDLX [facility] Last Admin: 06/24/18 10:00 Dose: 40 mg Guaifenesin (Mucinex) 1,200 mg PO BID [facility] Last Admin: 06/24/18 10:00 Dose: 1,200 mg Hydrocortisone (Hytone) 1 applic TOPICAL DAILY [facility] Last Admin: 06/24/18 09:59 Dose: 1 applicatio Insulin Glargine (Lantus ([facility])) 65 units SC BREAKFAST [facility] Last Admin: 06/24/18 09:57 Dose: 65 units Insulin Human Lispro (Humalog Kwikpen ([facility])) 20 unit SC TIDCM [facility] Last Admin: 06/24/18 11:37 Dose: 20 u Levothyroxine Sodium (Synthroid) 75 mcg PO DAILY@0600 [facility] Last Admin: 06/24/18 05:40 Dose: 75 mcg Methylprednisolone (Solu-Medrol) 40 mg IV Q8 [facility] Last Admin: 06/24/18 05:40 Dose: 40 mg Morphine Sulfate () 1 - 2 mg IV Q4H PRN PRN PRN Reason: SEVERE PAIN (6-10/10) Multivitamins/Minerals (Multivitamin With Minerals) 1 tablet PO DAILY@0800 [facility] Last Admin: 06/24/18 09:59 Dose: 1 tablet Ondansetron HCl (Zofran) 4 mg IV Q6H PRN PRN PRN Reason: Nausea Oxycodone HCl (Oxyir) 5 mg PO Q4H PRN PRN PRN Reason: Moderate Pain (pain scale 4-5) Potassium Chloride (K-Dur) 10 meq PO DAILY [facility] Last Admin: 06/24/18 09:59 Dose: 10 meq Sodium Chloride () 5 - 30 ml IV UD PRN PRN Reason: SALINE FLUSH Last Admin: 06/24/18 10:00 Dose: 10 ml Warfarin Sodium (Coumadin (Pbkc)) 2 mg PO X1 ONE Stop: 06/24/18 17:01 Zolpidem Tartrate (Ambien (Generic)) 5 mg PO QHS PRN PRN PRN Reason: INSOMNIA Medical Necessity - Tobacco Use Smoking Status: Never smoker Assessment/Plan All Active Problems (Last Reviewed 06/22/18 @ 10:37 by Vicky Arzate NP-C) COPD exacerbation (Acute) Acute on chronic combined systolic and diastolic CHF, NYHA class 2 (Acute) Subdural bleeding (Acute) Mitral stenosis (Acute) Encounter for long-term current use of high risk medication (Acute) Paroxysmal atrial fibrillation (Acute) Dermatitis of lower extremity (Acute) Syncope (Acute) Edema of both legs (Acute) Type 2 diabetes mellitus without complications (Acute) Syncope (Acute) Possible TIA/stroke (Acute) Hemorrhagic stroke (Resolved) UTI (urinary tract infection) (Resolved) 1. Acute hypoxic respiratory failure 2/2 COPD exacerbation and acute on chronic combined CHF/CAD s/p CABG - C/w duonebs and solu-medrol - She is on doxycycline given her QT is prolonged and she would not tolerate azithromycin - Echo in january with an EF of 50% and stage 3 diastolic dysfunction, right systolic dysfunction with elevated RVSP and moderate pulm HTN - Valves are ok - C/w IV diuresis - I&O and daily weights 2. paroxysmal a-fib/HTN/HLD/H/o CVA - Hold Coumadin, INR 3.8 - C/w amiodarone, and Aspirin 3. 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 Will monitor and adjust lasix as necessary for diuresis - SSI and lantus 50 U qHS and BG 212 - H/H is stable at 12.7 4. Hypothyroidims - TSH is 2.23 - C/w synthroid DVT: INR 3.8 Code Visit Inpatient E&M: 65978 Subs Hosp L2
--- NOTE | 2018-06-24 13:46 | PN_ITS ---
Patient Problems: Active and Suspected Problems (Last Reviewed 06/22/18 @ 10:37 by JOSE ANGEL Solorio) COPD exacerbation (Acute) Acute on chronic combined systolic and diastolic CHF, NYHA class 2 (Acute) Subjective: Says she is breathing with less audible wheezing. Swelling is also improved. Vitals/I&O's: Vital Signs Temp Pulse Resp BP Pulse Ox 98.2 F 60 20 H 150/53 H 99 06/24/18 09:40 06/24/18 12:08 06/24/18 12:08 06/24/18 09:40 06/24/18 12:08 Oxygen Flow Rate (L/min) 2 Oxygen Delivery Method Nasal Cannula Weight: 176 lb 12.972 oz Body Mass Index (BMI) 31.3 Finger Stick Blood Glucose 257 Intake and Output for Last 24 Hours 06/22/18 06/23/18 06/24/18 23:59 23:59 23:59 Intake Total 978 / 978 695 / 695 500 / 500 Output Total 0 / 0 300 / 300 Balance 978 / 978 695 / 695 200 / 200 General: Alert, Oriented x3, Cooperative, No apparent distress HEENT: Atraumatic, EOMI, Normocephalic Oral: Moist Mucosa Neck: Supple, No JVD Lungs: Diminished, Wheezes Cardiovascular: Regular rate, Regular Rhythm, Normal S1, Normal S2, No murmurs - interference from lung sounds Abdomen: Soft, Non Tender, Non-Distended, No Hepato-splenomegaly Extremities: Edema - trace-1+ pitting edema Skin: No rashes, No breakdown Neurological: Neuro grossly intact, Sensory exam intact to light touch and pain Psych/Mental Status: Normal Affect, Appropriate Microbiology Past 72 Hours 06/22/18 21:30 Mucosa - Nose Respiratory Panel (PCR) - Final Laboratory Results 06/23/18 13:48: POC Glucose > 500 H* 06/23/18 14:00: Glucose 496 H* 06/23/18 17:01: POC Glucose 406 H 06/23/18 21:53: POC Glucose 268 H 06/24/18 05:20: PT 37.8 H, INR 3.8 H* 06/24/18 05:20: Sodium 133 L, Potassium 5.1, Chloride 97 L, Carbon Dioxide 27.0, Anion Gap 9, BUN 64 H, Creatinine 2.36 H, Estim Creat Clear Calc 15.79, Est GFR (MDRD) Af Amer 26 L, Est GFR (MDRD) Non-Af 21 L, BUN/Creatinine Ratio 27.1 H, Glucose 322 H, Calcium 8.9 06/24/18 06:00: Urine Color Yellow, Urine Clarity Clear, Urine pH 5.0, Ur Specific [place] 1.015, Urine Protein Negative, Urine Glucose (UA) Normal, Urine Ketones Negative, Urine Occult Blood Negative, Urine Nitrite Negative, Urine Bilirubin Negative, Urine Urobilinogen Normal, Ur Leukocyte Esterase Negative 06/24/18 07:02: POC Glucose 319 H 06/24/18 11:16: POC Glucose 433 H Current Medications Acetaminophen (Tylenol) 650 mg PO Q6H PRN PRN PRN Reason: Mild Pain (scale 0-3)/T>100.7 Al Hydroxide/Mg Hydroxide (Mylanta Ii) 30 ml PO Q6H PRN PRN PRN Reason: Gastric Burning Last Admin: 06/24/18 00:10 Dose: 30 ml Albuterol Sulfate (Ventolin Aerosols) 2.5 mg INHALATION Q2H PRN PRN PRN Reason: SHORTNESS OF BREATH Albuterol/Ipratropium (Duoneb) 3 ml INHALATION Q4H.RT [facility] Last Admin: 06/24/18 11:20 Dose: 3 ml Amiodarone HCl (Cordarone) 100 mg PO DAILY [facility] Last Admin: 06/24/18 09:59 Dose: 100 mg Aspirin (Ecotrin) 81 mg PO QHS [facility] Last Admin: 06/23/18 21:43 Dose: 81 mg Bisacodyl (Dulcolax) 10 mg RECTAL DAILY PRN PRN PRN Reason: Constipation Calcitriol (Rocaltrol) 0.25 mcg PO MOWEFR [facility] Last Admin: 06/24/18 10:00 Dose: 0.25 mcg Docusate Sodium (Colace) 200 mg PO BID PRN PRN PRN Reason: Constipation Doxycycline Monohydrate (Doxycycline) 100 mg PO BID [facility] Last Admin: 06/24/18 09:59 Dose: 100 mg Furosemide (Lasix) 40 mg IV BIDLX [facility] Last Admin: 06/24/18 10:00 Dose: 40 mg Guaifenesin (Mucinex) 1,200 mg PO BID [facility] Last Admin: 06/24/18 10:00 Dose: 1,200 mg Hydrocortisone (Hytone) 1 applic TOPICAL DAILY [facility] Last Admin: 06/24/18 09:59 Dose: 1 applicatio Insulin Glargine (Lantus ([facility])) 65 units SC BREAKFAST [facility] Last Admin: 06/24/18 09:57 Dose: 65 units Insulin Human Lispro (Humalog Kwikpen ([facility])) 20 unit SC TIDCM [facility] Last Admin: 06/24/18 11:37 Dose: 20 u Levothyroxine Sodium (Synthroid) 75 mcg PO DAILY@0600 [facility] Last Admin: 06/24/18 05:40 Dose: 75 mcg Methylprednisolone (Solu-Medrol) 40 mg IV Q8 [facility] Last Admin: 06/24/18 05:40 Dose: 40 mg Morphine Sulfate () 1 - 2 mg IV Q4H PRN PRN PRN Reason: SEVERE PAIN (6-10/10) Multivitamins/Minerals (Multivitamin With Minerals) 1 tablet PO DAILY@0800 [facility] Last Admin: 06/24/18 09:59 Dose: 1 tablet Ondansetron HCl (Zofran) 4 mg IV Q6H PRN PRN PRN Reason: Nausea Oxycodone HCl (Oxyir) 5 mg PO Q4H PRN PRN PRN Reason: Moderate Pain (pain scale 4-5) Potassium Chloride (K-Dur) 10 meq PO DAILY [facility] Last Admin: 06/24/18 09:59 Dose: 10 meq Sodium Chloride () 5 - 30 ml IV UD PRN PRN Reason: SALINE FLUSH Last Admin: 06/24/18 10:00 Dose: 10 ml Warfarin Sodium (Coumadin (Pbkc)) 2 mg PO X1 ONE Stop: 06/24/18 17:01 Zolpidem Tartrate (Ambien (Generic)) 5 mg PO QHS PRN PRN PRN Reason: INSOMNIA Medical Necessity - Tobacco Use Smoking Status: Never smoker Assessment/Plan All Active Problems (Last Reviewed 06/22/18 @ 10:37 by Vicky Arzate NP-C) COPD exacerbation (Acute) Acute on chronic combined systolic and diastolic CHF, NYHA class 2 (Acute) Subdural bleeding (Acute) Mitral stenosis (Acute) Encounter for long-term current use of high risk medication (Acute) Paroxysmal atrial fibrillation (Acute) Dermatitis of lower extremity (Acute) Syncope (Acute) Edema of both legs (Acute) Type 2 diabetes mellitus without complications (Acute) Syncope (Acute) Possible TIA/stroke (Acute) Hemorrhagic stroke (Resolved) UTI (urinary tract infection) (Resolved) 1. Acute hypoxic respiratory failure 2/2 COPD exacerbation and acute on chronic combined CHF/CAD s/p CABG - C/w duonebs and solu-medrol - She is on doxycycline given her QT is prolonged and she would not tolerate azithromycin - Echo in january with an EF of 50% and stage 3 diastolic dysfunction, right systolic dysfunction with elevated RVSP and moderate pulm HTN - Valves are ok - C/w IV diuresis - I&O and daily weights 2. paroxysmal a-fib/HTN/HLD/H/o CVA - Hold Coumadin, INR 3.8 - C/w amiodarone, and Aspirin 3. 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 Will monitor and adjust lasix as necessary for diuresis - SSI and lantus 50 U qHS and BG 212 - H/H is stable at 12.7 4. Hypothyroidims - TSH is 2.23 - C/w synthroid DVT: INR 3.8 Code Visit Inpatient E&M: 03984 Subs Hosp L2
--- NOTE | 2018-06-24 15:04 | CASEMGMT ---
LINDSEY MONTEJO NOTE: Call placed to [facility]. They state pt is not currently active with them. Inquired about CPAP maintenance and new supplies for CPAP. They stated pt will need new script for supplies and [id number] documenting necessity of CPAP in order for it to be processed through insurance. Pt instructed to follow up with her PCP or cathode maker/Dr Smiley to have this completed. *New script obtained for nebulizer, as pt states hers is really old and makes a lot of noise. Awaiting [id number] from Dr Cedillo and then will fax nebulizer script and [id number] [facility]. Kacy BECKFORD RN CM
[2018-06-24 16:40] LABS: Bedside Glucose 257 mg/dL (70-110)
[2018-06-24] MEDS: Aspirin E.C. 81 MG Tablet PO (20:56)
[2018-06-25] VITALS (16 sets, daily range): BP systolic 139–188; BP diastolic 63–77; PULSE 50–64; RESP 15–18; TEMP 36.4–36.6; O2SAT 92–98
[2018-06-25 05:47] LABS: Anion Gap 8 (5-15); BUN 82 mg/dL (7-18); BUN/Creat Ratio 32.7 RATIO (10-20); Calcium,Total 9.2 mg/dL (8.5-10.1); Chloride 99 mmol/L (98-107); Creatinine, Serum 2.51 mg/dL (0.55-1.02); EST Glomerular Filtration Rate 20 mL/min (>60); Est Glom Filt Rate - Afr Amer 24 mL/min (>60); Estimated Creatinine Clearance 14.85 ml/min; Glucose 242 mg/dL (74-106); Potassium 5.4 mmol/L (3.5-5.1); Sodium Level 137 mmol/L (136-145)
[2018-06-25 06:21] LABS: Absolute Lymphocyte Count 0.49 X10^3/ul (0.83-4.51); Absolute Neutrophil Count 14.9 X10^3/uL (2.0-7.7); Hematocrit 39.8 % (37-47); Hemoglobin 12.7 g/dl (12.0-15.0); Lymphocyte # 0.49 X10^3/ul (4.0); Lymphocyte % 3.1 % (19-41); Mean Corp Hgb Conc 31.9 g/gl (32-36); Mean Corpuscular Hgb 25.9 pg (27.0-32.0); Mean Corpuscular Volume 81.2 fL (81-99); Mean Platelet Vol. 10.3 fl (6.2-12.0); Monocyte# 0.22 X10^3/uL; Monocyte% 1.4 % (0-10); Neutrophil # 14.91 X10^3/uL (2.7-7.7); Neutrophil % 95.3 % (47-70); Platelet Count 185 K/mm3 (150-450); RBC Distribution Width CV 16.7 % (11.6-14.6); RBC Distribution Width SD 49.3 fl (35.1-43.9); White Blood Count 15.7 K/mm3 (4.4-11.0)
[2018-06-25] MEDS: 0.9% NaCl Peripheral Flush Adult/Peds IV ×2 (06:21→22:00)
[2018-06-25] MEDS: Levothyroxine 75 MCG Tablet PO (06:21)
[2018-06-25 06:22] LABS: Differential Indicated SCAN CRITERIA MET; POSITIVE COUNT NO; POSITIVE DIFFERENTIAL YES; POSITIVE MORPHOLOGY NO
[2018-06-25 07:06] LABS: Bedside Glucose 261 mg/dL (70-110)
[2018-06-25] MEDS: Ipratropium/Albuterol Sulfate 3 ML AMPUL.NEB INHALATION ×3 (08:07→22:55)
[2018-06-25] MEDS: Multivitamins,Ther W-Minerals Tablet 1 TABLET PO (08:43)
[2018-06-25] MEDS: Insulin Lispro 100 UNIT/ML INSULN.PEN 20 UNIT SC ×2 (08:45→13:14)
[2018-06-25] MEDS: Amiodarone 200 MG Tablet 100 MG PO (10:38)
[2018-06-25] MEDS: guaiFENesin 1,200 MG Tablet 1200 MG PO ×2 (10:39→22:00)
[2018-06-25] MEDS: Doxycycline 100 MG CAPSULE PO ×2 (10:39→22:00)
[2018-06-25] MEDS: Hydrocortisone 2.5% Crm 1 APPLIC TOPICAL (10:39)
[2018-06-25] MEDS: Furosemide 40 MG/4 ML Vial IV (10:40)
[2018-06-25 12:26] LABS: Bedside Glucose 308 mg/dL (70-110)
--- NOTE | 2018-06-25 13:21 | PN_ITS ---
<Sathish Fregoso - Last Filed: 06/25/18 13:17> Patient Problems: Active and Suspected Problems (Last Reviewed 06/22/18 @ 10:37 by Vicky Arzate NP-C) COPD exacerbation (Acute) Acute on chronic combined systolic and diastolic CHF, NYHA class 2 (Acute) Subjective: ongoing SOB, edema, wheezing. Nonproductive cough. No fever / chill. - Physical Exam General: Alert, Oriented x3, Cooperative HEENT: Atraumatic, PERRLA, EOMI, Normocephalic Neck: Supple, No JVD, Negative Carotid Bruits Lungs: Wheezes Cardiovascular: Regular rate, No murmurs Abdomen: Bowel Sounds Present, Soft, Non Tender Extremities: No edema, Capillary Refill Less than 3 Seconds Skin: No rashes, No breakdown Musculoskeletal: No Tenderness to Palpation of Joints or Extremities Neurological: Cranial nerves II-XII grossly intact Psych/Mental Status: Normal Affect, Appropriate, Alert and oriented to time, place, person, mood and affect Vital Signs Temp Pulse Resp BP Pulse Ox 97.8 F 59 L 17 150/65 H 94 06/25/18 09:00 06/25/18 10:58 06/25/18 09:00 06/25/18 09:00 06/25/18 09:00 Oxygen Flow Rate (L/min) 2 Oxygen Delivery Method Room Air Weight: 177 lb 14.609 oz Body Mass Index (BMI) 31.3 Finger Stick Blood Glucose 257 Intake and Output for Last 24 Hours 06/23/18 06/24/18 06/25/18 23:59 23:59 23:59 Intake Total 695 / 695 800 / 800 510 / 510 Output Total 0 / 0 1200 / 1200 700 / 700 Balance 695 / 695 -400 / -400 -190 / -190 Microbiology Past 72 Hours 06/22/18 21:30 Respiratory Panel (PCR) - Final Mucosa - Nose Laboratory Tests Past 24 Hrs 06/25/18 06/25/18 06/25/18 05:05 05:05 05:05 WBC 15.7 H RBC 4.90 Hgb 12.7 Hct 39.8 MCV 81.2 MCH 25.9 L MCHC 31.9 L RDW 16.7 H RDW Differential 49.3 H Plt Count 185 MPV 10.3 Immature Gran % (Auto) 0.200 Neut % (Auto) 95.3 H Lymph % (Auto) 3.1 L [place] % (Auto) 1.4 Eos % (Auto) 0.0 Baso % (Auto) 0.0 Absolute Neuts (auto) 14.9 H Absolute Lymphs (auto) 0.49 L Total Counted Not Reportable PT 39.0 H INR 4.0 H* Sodium 137 Potassium 5.4 H Chloride 99 Carbon Dioxide 30.0 Anion Gap 8 BUN 82 H Creatinine 2.51 H Estim Creat Clear Calc 14.85 Est GFR (MDRD) Af Amer 24 L Est GFR (MDRD) Non-Af 20 L BUN/Creatinine Ratio 32.7 H Glucose 242 H Calcium 9.2 POC Glucose 06/25/18 06/25/18 06/24/18 12:20 07:02 15:41 POC Glucose 308 H 261 H 257 H Medical Necessity - Tobacco Use Smoking Status: Never smoker Assessment/Plan All Active Problems (Last Reviewed 06/22/18 @ 10:37 by JOSE ANGEL Solorio) COPD exacerbation (Acute) Acute on chronic combined systolic and diastolic CHF, NYHA class 2 (Acute) Subdural bleeding (Acute) Mitral stenosis (Acute) Encounter for long-term current use of high risk medication (Acute) Paroxysmal atrial fibrillation (Acute) Dermatitis of lower extremity (Acute) Syncope (Acute) Edema of both legs (Acute) Type 2 diabetes mellitus without complications (Acute) Syncope (Acute) Possible TIA/stroke (Acute) Hemorrhagic stroke (Resolved) UTI (urinary tract infection) (Resolved) 1. Acute hypoxic respiratory failure 2/2 presumed COPD exacerbation and CHF exacerbation - complicated by moderate pulmonary htn. Echo EF 50%, PASP improved from 80 to 50. Still edematous and wheezy. Unclear how much more lasix she will tolerate. Continue aerosols, steroids. Consult pulm. Add BETZAIDA and encourage leg elevation. 2. PAF - SR. coumadin held for increased INR. 3. CKD4 - Cr trending up. 4.Hypothyroid - continue synthroid Other Chronic issues stable DVT ppx: Coumadin DC planning: still severely wheezy, SOB. Consult pulm. PTOT. This patient was seen by Sathish Fregoso PA-C under the supervision of Doctor Nguyen. <Fredi Cedillo - Last Filed: 06/25/18 16:44> - Physical Exam Vital Signs Temp Pulse Resp BP Pulse Ox 97.5 F L 60 18 157/76 H 96 06/25/18 15:46 06/25/18 15:46 06/25/18 15:46 06/25/18 15:46 06/25/18 15:46 Oxygen Flow Rate (L/min) 2 Oxygen Delivery Method Room Air Weight: 177 lb 14.609 oz Body Mass Index (BMI) 31.3 Finger Stick Blood Glucose 257 Intake and Output for Last 24 Hours 06/23/18 06/24/18 06/25/18 23:59 23:59 23:59 Intake Total 695 / 695 800 / 800 510 / 510 Output Total 0 / 0 1200 / 1200 700 / 700 Balance 695 / 695 -400 / -400 -190 / -190 Microbiology Past 72 Hours 06/22/18 21:30 Respiratory Panel (PCR) - Final Mucosa - Nose Laboratory Tests Past 24 Hrs 06/25/18 06/25/18 06/25/18 05:05 05:05 05:05 WBC 15.7 H RBC 4.90 Hgb 12.7 Hct 39.8 MCV 81.2 MCH 25.9 L MCHC 31.9 L RDW 16.7 H RDW Differential 49.3 H Plt Count 185 MPV 10.3 Immature Gran % (Auto) 0.200 Neut % (Auto) 95.3 H Lymph % (Auto) 3.1 L [place] % (Auto) 1.4 Eos % (Auto) 0.0 Baso % (Auto) 0.0 Absolute Neuts (auto) 14.9 H Absolute Lymphs (auto) 0.49 L Total Counted Not Reportable PT 39.0 H INR 4.0 H* Sodium 137 Potassium 5.4 H Chloride 99 Carbon Dioxide 30.0 Anion Gap 8 BUN 82 H Creatinine 2.51 H Estim Creat Clear Calc 14.85 Est GFR (MDRD) Af Amer 24 L Est GFR (MDRD) Non-Af 20 L BUN/Creatinine Ratio 32.7 H Glucose 242 H Calcium 9.2 POC Glucose 06/25/18 06/25/18 12:20 07:02 POC Glucose 308 H 261 H Code Visit Addendum: Dr. Cedillo I personally examined the patient and reviewed the chart. I agree with the above. 78-year-old female with a history of chronic combined heart failure, mitral valve replacement 2014 with a bioprosthetic valve, coronary artery disease, presenting with shortness of breath. She did have bilateral lower extremity edema and was continued on IV Lasix, but was also being treated for possible COPD with IV steroids and doxycycline. Given that her creatinine has increased will decrease the amount of Lasix she is receiving as well as decrease the amount of steroids she is getting. Will consult pulmonology for further assistance in this case. Inpatient E&M: 31712 Subs Hosp L2
--- NOTE | 2018-06-25 15:01 | NURSING ---
Student nurse charting reviewed and appropriate.
--- NOTE | 2018-06-25 15:07 | PCM.CONS.GEN ---
Problem List (1) Acute on chronic combined systolic and diastolic CHF, NYHA class 2 Status: Acute (2) Atherosclerosis of coronary artery bypass graft without angina pectoris Status: Chronic Qualifiers: [place] vs. transplanted heart: [facility] heart Qualified Code(s): I25.810 - Atherosclerosis of coronary artery bypass graft(s) without angina pectoris (3) Postsurgical percutaneous transluminal coronary angioplasty (PTCA) status Status: Chronic Comment: PTCA of LAD ; (4) Mitral stenosis Status: Acute Qualifiers: Cardiac valve disease etiology: nonrheumatic Qualified Code(s): I34.2 - Nonrheumatic mitral (valve) stenosis (5) Encounter for long-term current use of high risk medication Status: Acute (6) Paroxysmal atrial fibrillation Status: Acute (7) Depression Status: Chronic (8) S/P CABG x 1 Status: Chronic Comment: 09/29/2014 CABG: SVG to distal LAD [facility] per Dr. Miller (9) History of maze procedure Status: Chronic Comment: 09/29/2014 atricure pulmonary vein isolation MAZE with ligation of left atrial appendage per Dr. Angela Alexis (10) History of mitral valve replacement with bioprosthetic valve Status: Chronic Comment: 09/29/2014: MVR with 27 mm Medtronic tisue valve per Dr. Angela Alexis (11) Atrial fibrillation Status: Chronic Qualifiers: Atrial fibrillation type: paroxysmal Qualified Code(s): I48.0 - Paroxysmal atrial fibrillation; I48.0 - Paroxysmal atrial fibrillation; I48.0 - Paroxysmal atrial fibrillation; I48.0 - Paroxysmal atrial fibrillation (12) Hyperlipidemia Status: Chronic Qualifiers: Hyperlipidemia type: pure hypercholesterolemia Qualified Code(s): E78.00 - Pure hypercholesterolemia, unspecified; E78.00 - Pure hypercholesterolemia, unspecified; E78.00 - Pure hypercholesterolemia, unspecified; E78.0 - Pure hypercholesterolemia (13) Hypertension Status: Chronic Qualifiers: Hypertension type: essential hypertension Qualified Code(s): I10 - Essential (primary) hypertension; I10 - Essential (primary) hypertension; I10 - Essential (primary) hypertension Comment: resistant HTN (14) Cerebrovascular disease Status: Chronic Comment: ischemic stroke w hemorrhagic transformation in the setting of coumadin anticoagulation (15) Anticoagulation goal of INR 2 to 3 Status: Chronic (16) Diabetes mellitus type II, uncontrolled Status: Chronic (17) Pulmonary hypertension Status: Chronic (18) MAGALI (obstructive sleep apnea) Status: Chronic Comment: on CPAP Reason for Consult Date of Consultation: 06/25/18 Reason for Consultation: Continued wheezing and paroxysmal cough History of Present Illness: The patient is a 78 year old F with past medical history listed below, who presented to [facility] on 06/22/2018 from our office secondary to 3 weeks of progressive shortness of breath. Patient had been treated with prednisone burst 2 times and amoxicillin prior to presentation to the ER. Patient states that she had a paroxysmal type cough that was nonproductive. No hemoptysis or epistaxis have been reported. Patient did report orthopnea at that time. In the emergency room, patient was noted to be 95% on room air with pitting edema of the lower extremities. Chest x-ray showed only chronic changes and EKG showed sinus bradycardia. BNP was elevated at 531. Patient was admitted to the floor. Patient has been admitted to the PCU for 3 days now. Over the course of patient's hospitalization, she has received diuretic therapy and IV steroids. Patient has had significant decrease in weight by over 2 kg and reports subjective improvement. However, patient continues to wheeze and have paroxysmal type cough. Patient feels that she is approximately 50% improved. Patient does tolerate lying flat better than previously, but still has to sleep on an incline. No fevers have been documented over patient's hospital course. Inputs and outputs are inaccurate, but weight shows decreased. Patient is saturating well on room air. Review of systems otherwise negative x10 systems. Past Medical History Past Medical History (Chronic Problems): Chronic Problems (Last Reviewed 06/22/18 @ 10:37 by JOSE ANGEL Solorio) Atherosclerosis of coronary artery bypass graft without angina pectoris (Chronic) Postsurgical percutaneous transluminal coronary angioplasty (PTCA) status (Chronic) PTCA of LAD ; Depression (Chronic) prison (current) use of anticoagulants (Chronic) Bradycardia (Chronic) S/P CABG x 1 (Chronic 09/29/14) 09/29/2014 CABG: SVG to distal LAD [facility] per Dr. Miller 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 Miller [facility] History of mitral valve replacement with bioprosthetic valve (Chronic 09/29/14) 09/29/2014: MVR with 27 mm Medtronic tisue valve per Dr. Miller [facility] Atrial fibrillation (Chronic) Hyperlipidemia (Chronic) Hypertension (Chronic) resistant HTN Cerebrovascular disease (Chronic) ischemic stroke w hemorrhagic transformation in the setting of coumadin anticoagulation Anemia (Chronic) CRF (chronic renal failure) (Chronic) Anticoagulation goal of INR 2 to 3 (Chronic) Diabetes mellitus type II, uncontrolled (Chronic) Stroke with left visual deficit (Chronic) Chronic diastolic heart failure (Chronic) Pulmonary hypertension (Chronic) MAGALI (obstructive sleep apnea) (Chronic) on CPAP Medical History: Medical History (Last Reviewed 06/22/18 @ 10:37 by Vicky Arzate NP-C) Atherosclerosis of coronary artery bypass graft without angina pectoris (Chronic) I25.810 Subdural bleeding (Acute) I62.00 Mitral stenosis (Acute) I05.0 Paroxysmal atrial fibrillation (Acute) I48.0 Depression (Chronic) F32.9 Dermatitis of lower extremity (Acute) L30.9 Bradycardia (Chronic) R00.1 Syncope (Acute) R55 Atrial fibrillation (Chronic) I48.91 Hyperlipidemia (Chronic) E78.5 Hypertension (Chronic) I10 resistant HTN Cerebrovascular disease (Chronic) I67.9 ischemic stroke w hemorrhagic transformation in the setting of coumadin anticoagulation Anemia (Chronic) D64.9 CRF (chronic renal failure) (Chronic) N18.9 Anticoagulation goal of INR 2 to 3 (Chronic) Z51.81, Z79.01 Diabetes mellitus type II, uncontrolled (Chronic) E11.65 Edema of both legs (Acute) R60.0 Type 2 diabetes mellitus without complications (Acute) E11.9 Syncope (Acute) R55 Possible TIA/stroke (Acute) Stroke with left visual deficit (Chronic) Chronic diastolic heart failure (Chronic) I50.32 Pulmonary hypertension (Chronic) I27.20 MAGALI (obstructive sleep apnea) (Chronic) G47.33 on CPAP Dyspnea on exertion R06.09 Edema R60.9 Pulmonary hypertension, moderate to severe I27.20 Shortness of breath R06.02 History of hysterectomy Z90.710 Allergies dronedarone [From Multaq] Allergy (Severe, Verified 06/22/18 18:31) difficulty breathing dronedarone HCl [From Multaq] Allergy (Verified 06/22/18 10:04) Other unable to breath quinapril [From Accupril] Adverse Reaction (Severe, Verified 06/22/18 10:04) near syncope shellfish derived Adverse Reaction (Severe, Verified 06/22/18 10:04) Causes swelling cortisone Adverse Reaction (Intermediate, Verified 06/22/18 10:04) swelling hydralazine Adverse Reaction (Intermediate, Verified 06/22/18 10:04) weakness Beta-Blockers (Beta-Adrenergic Bloc Adverse Reaction (Verified 06/22/18 10:04) Other WHEEZING, shaking, passes out prednisone Adverse Reaction (Verified 06/22/18 10:04) Swelling CARDURA Allergy (Uncoded 06/22/18 10:04) Other PT NOT SURE- POSSIBLE SWELLING NORVASC Allergy (Uncoded 06/22/18 10:04) Swelling SCALLOPS Allergy (Uncoded 06/22/18 10:04) Swelling SULFA Allergy (Uncoded 06/22/18 10:04) Other SPOTS IN MOUTH/SORE MOUTH ATIVAN Adverse Reaction (Uncoded 06/22/18 10:04) Other HALLUCINATIONS METATOPOLOL TARTATE Adverse Reaction (Uncoded 06/22/18 10:04) Other Home Medications: Ambulatory Orders Medication Instructions Recorded Insulin Aspart [Novolog Flexpen] 10 units SC TIDCM 09/20/14 Albuterol Inhaler [Ventolin Hfa] 2 puff INHALATION Q4H PRN PRN #1 10/27/14 inhaler Calcitriol [Rocaltrol] 0.25 mcg PO MOWEFR 01/16/17 Lisinopril [Zestril] 20 mg PO DAILY 01/16/17 insulin glargine (U-100) 100 50 units SC BREAKFAST 07/15/17 unit/mL (3 mL) subcutaneous pen potassium chloride ER 10 mEq 10 meq PO QDAY 11/25/17 capsule,extended release Aspirin E.C. [Ecotrin] 81 mg PO QHS 01/07/18 Lecithin 1,200 mg PO QHS 01/08/18 Albuterol Aerosols [Ventolin 3 ml INHALATION BID 06/22/18 Aerosols] Amiodarone HCl 100 mg PO DAILY 06/22/18 Furosemide [Lasix] 40 mg PO BID 06/22/18 Hydrocortisone 1 applic TP DAILY 06/22/18 Levothyroxine Sodium [Synthroid] 75 mcg PO DAILY 06/22/18 Multivit-Min/Iron/Folic/Lutein 1 tab PO DAILY 06/22/18 [Centrum Silver Women Tablet] Warfarin Sodium 3 mg PO SUTUTHSA 06/22/18 Warfarin Sodium 4 mg PO MOWEFR 06/22/18 Surgical History: Surgical History (Last Reviewed 06/22/18 @ 10:37 by JOSE ANGEL Solorio) Postsurgical percutaneous transluminal coronary angioplasty (PTCA) status (Chronic) Z98.61 PTCA of LAD ; S/P CABG x 1 (Chronic) Onset Date: 09/29/14 Z95.1 09/29/2014 CABG: SVG to distal LAD [facility] per Dr. Miller History of maze procedure (Chronic) Onset Date: 09/29/14 Z98.890 09/29/2014 atricure pulmonary vein isolation MAZE with ligation of left atrial appendage per Dr. Angela Alexis History of mitral valve replacement with bioprosthetic valve (Chronic) Onset Date: 09/29/14 Z95.3 09/29/2014: MVR with 27 mm Medtronic tisue valve per Dr. Angela Alexis History of PTCA Z98.61 angioplasty with moderate in-stent stenosis of the proximal LAD Surgical History: cataract, - Smoking Status: Never smoker - *Family History Maternal Family History: Family History (Last Reviewed 06/22/18 @ 10:37 by JOSE ANGEL Solorio) Father CAD (coronary artery disease) Hypertension Myocardial infarction Sudden cardiac Hyperlipidemia Mother Breast cancer Brother Cancer Sister Breast cancer Hyperlipidemia Sister Hyperlipidemia History Items: Cancer Paternal Family History: Family History (Last Reviewed 06/22/18 @ 10:37 by JOSE ANGEL Solorio) Father CAD (coronary artery disease) Hypertension Myocardial infarction Sudden cardiac Hyperlipidemia Mother Breast cancer Brother Cancer Sister Breast cancer Hyperlipidemia Sister Hyperlipidemia History Items: Heart Disease, Stroke Sibling Family History: Family History (Last Reviewed 06/22/18 @ 10:37 by JOSE ANGEL Solorio) Father CAD (coronary artery disease) Hypertension Myocardial infarction Sudden cardiac Hyperlipidemia Mother Breast cancer Brother Cancer Sister Breast cancer Hyperlipidemia Sister Hyperlipidemia History Items: Cancer - in brother and sister Review of Systems Comment: See HPI, otherwise negative x10 systems Patient Problems: Active and Suspected Problems (Last Reviewed 06/22/18 @ 10:37 by Vicky Arzate NP-C) COPD exacerbation (Acute) Acute on chronic combined systolic and diastolic CHF, NYHA class 2 (Acute) Objective: Echocardiogram (01/29/2018): EF 50% with stage III diastolic dysfunction, mild global right ventricular systolic dysfunction, transmitral valve gradient of 4.5 mmHg with stable appearing bioprosthetic mitral valve. Pulmonary artery pressure 51 mmHg. PFT (04/12/2016): Mild restrictive ventilatory defect with a reduction in diffusing capacity out of proportion - Physical Exam General: Alert, Oriented x3, Cooperative, No apparent distress, - - Some paroxysmal cough episodes noted during examination. HEENT: Atraumatic, PERRLA, EOMI, Normocephalic, - - No scleral icterus or injection noted. Oral: Moist Mucosa, No Gingival or Mucosal Lesions/ Ulcerations Neck: Supple, No JVD, No Nodes Lungs: No rhonchi, No rales, Diminished, Wheezes, - - Symmetric expansion. No dullness to percussion. Cardiovascular: Normal S1, Normal S2, Bradycardic, Murmur - Grade 2 out of 6 diastolic murmur at the apex, No rub noted, No Gallop Abdomen: Bowel Sounds Present, Soft, Non Tender, Non-Distended, Obese Extremities: No cyanosis, Edema - 2+ lower extremity edema. Wrapped with Mendez bandages Skin: - - Scattered nevi noted. Venous stasis changes noted. Musculoskeletal: No Tenderness to Palpation of Joints or Extremities Lymphatic: No Cervical, Supraclavicular, or Inguinal Adenopathy Neurological: Cranial nerves II-XII grossly intact, Neuro grossly intact, Motor Exam 5/5 strength throughout Psych/Mental Status: Alert and oriented to time, place, person, mood and affect Vital Signs Temp Pulse Resp BP Pulse Ox 36.6 C 59 L 17 150/65 H 94 06/25/18 09:00 06/25/18 10:58 06/25/18 09:00 06/25/18 09:00 06/25/18 09:00 Oxygen Flow Rate (L/min) 2 Oxygen Delivery Method Room Air Weight: 80.7 kg Body Mass Index (BMI) 31.3 Finger Stick Blood Glucose 257 Intake and Output for Last 24 Hours 06/23/18 06/24/18 06/25/18 23:59 23:59 23:59 Intake Total 695 / 695 800 / 800 510 / 510 Output Total 0 / 0 1200 / 1200 700 / 700 Balance 695 / 695 -400 / -400 -190 / -190 Microbiology Past 72 Hours 06/22/18 21:30 Respiratory Panel (PCR) - Final Mucosa - Nose Laboratory Tests Past 24 Hrs 06/25/18 06/25/18 06/25/18 05:05 05:05 05:05 WBC 15.7 H RBC 4.90 Hgb 12.7 Hct 39.8 MCV 81.2 MCH 25.9 L MCHC 31.9 L RDW 16.7 H RDW Differential 49.3 H Plt Count 185 MPV 10.3 Immature Gran % (Auto) 0.200 Neut % (Auto) 95.3 H Lymph % (Auto) 3.1 L [place] % (Auto) 1.4 Eos % (Auto) 0.0 Baso % (Auto) 0.0 Absolute Neuts (auto) 14.9 H Absolute Lymphs (auto) 0.49 L Total Counted Not Reportable PT 39.0 H INR 4.0 H* Sodium 137 Potassium 5.4 H Chloride 99 Carbon Dioxide 30.0 Anion Gap 8 BUN 82 H Creatinine 2.51 H Estim Creat Clear Calc 14.85 Est GFR (MDRD) Af Amer 24 L Est GFR (MDRD) Non-Af 20 L BUN/Creatinine Ratio 32.7 H Glucose 242 H Calcium 9.2 POC Glucose 06/25/18 06/25/18 06/24/18 12:20 07:02 15:41 POC Glucose 308 H 261 H 257 H Clinical Impression(s) from Imaging Studies Chest X-Ray 06/22/18 11:55 IMPRESSION: Mild COPD. No acute findings. Electronically Signed: Lionel Monroy DO at 12:19 EST Tel , Service support , Assessment/Plan All Active Problems (Last Reviewed 06/22/18 @ 10:37 by Vicky Arzate NP-Vani) COPD exacerbation (Acute) Acute on chronic combined systolic and diastolic CHF, NYHA class 2 (Acute) Subdural bleeding (Acute) Mitral stenosis (Acute) Encounter for long-term current use of high risk medication (Acute) Paroxysmal atrial fibrillation (Acute) Dermatitis of lower extremity (Acute) Syncope (Acute) Edema of both legs (Acute) Type 2 diabetes mellitus without complications (Acute) Syncope (Acute) Possible TIA/stroke (Acute) Hemorrhagic stroke (Resolved) UTI (urinary tract infection) (Resolved) RECOMMENDATIONS: 1. Obtain echocardiogram for evaluation of bioprosthetic valve 2. Obtain CT scan of the chest for evaluation of bronchomalacia 3. Wean IV steroids 4. Okay to continue with diuretic therapy IMPRESSIONS: 1. Acute hypoxic respiratory insufficiency secondary to acute on chronic diastolic congestive heart failure Patient treated with multiple rounds of prednisone in the past with no improvement in previous pulmonary function test do not show obstructive lung disease. Patient does have an extensive history of cardiac involvement including a mitral valve repair. Patient does have a diastolic murmur on exam. Will obtain an echocardiogram for evaluation of mitral valve. We will also decrease steroids as there is low clinical suspicion for obstructive lung disease at this time. Will obtain a CT scan of the chest without contrast for evaluation of alveolar infiltrates and bronchial collapse such as bronchomalacia. 2. Paroxysmal A. fib Patient currently very well rate controlled. Patient is on Coumadin at baseline. This would exacerbate severe diastolic dysfunction, but rate has been controlled throughout the hospitalization. 3. Cor pulmonale Patient with multiple issues leading to elevated pulmonary artery pressures. This is likely going to lead to increased lower extremity edema given RV dysfunction noted on previous echo. Repeat echocardiogram has been ordered. Lower extremity edema appears to be responding to compressive therapy. Await repeat pulmonary artery measurements. Do anticipate this is much improved from presentation as patient has received significant diuresis. 4. Hypothyroidism/obesity/advanced age/venous stasis/history of stroke/depression/diabetes mellitus type 2 Complicates care, management, recovery and prognosis. Okay to continue with current medications. Code Visit Inpatient E&M: 19480 Init Hosp L2
--- NOTE | 2018-06-25 15:19 | CT_ITS ---
STUDY: CT CHEST WITHOUT CONTRAST REASON FOR EXAM: Female, 78 years old. CHF exacerbation with wheezing RADIATION DOSAGE (If Supplied By Facility): CTDIvol = ( 15.89 ) mGy, DLP = ( 539.96 ) mGycm TECHNIQUE: Transaxial imaging was performed without the administration of intravenous contrast material. Individualized dose optimization techniques were used for this CT. COMPARISON: 02/14/2015 FINDINGS: Grossly unremarkable thyroid The lungs are normal. There is no demonstrated pleural abnormality. There is moderate cardiac enlargement. There are calcifications of the coronary arteries. Median sternotomy wires are noted. Slight interval decrease in size of numerous mediastinal lymph nodes as compared to the exam from 2014. Normal hilar regions. Normal unenhanced pulmonary arteries. There is atherosclerotic calcification of the aortic arch with tortuosity and elongation of the aortic arch and descending thoracic aorta. There are multi-level degenerative changes of the thoracic spine. There is no demonstrated abnormality of the visualized upper abdomen. Extensive atherosclerotic disease of the splenic artery. CT/Chest without Contrast IMPRESSION: Lungs are adequately inflated and clear. Slight decrease in size of numerous mediastinal lymph nodes as noted in 2014. Cardiomegaly with median sternotomy wires Electronically Signed: Lionel Monroy DO at 9:46 EST Tel , Service support ,
--- NOTE | 2018-06-25 15:19 | ECHOD_ITS ---
Reason For Study: CHF Procedure This was a 2D Doppler, Color Flow transthoracic echocardiogram. The exam was of adequate technical quality. Exam performed portable in patient room. Left Ventricle Normal LV size. D shaped septum in systole and diastole. Left ventricular systolic function is normal. The estimated ejection fraction is 65 %. Post operative septal motion. Diastolic function is indeterminate. No regional wall motion abnormalities noted. Right Ventricle Normal RV size. Normal systolic function. Atria The left atrium is mildly enlarged. The right atrium is mildly enlarged. No doppler evidence for ASD. Mitral Valve Stable appearing bioprosthetic mitral valve apparatus. Trivial transvalvular insufficiency of the mitral valve. Tricuspid Valve Normal tricuspid valve. Mild to moderate (1-2+) eccentric tricuspid valve insufficiency. Right ventricular systolic pressure estimated to be 72 mmHg. Aortic Valve Trisinus/trileaflet aortic valve. Mild diffuse aortic valve calcification. Trivial aortic valve insufficiency. Pulmonic Valve The pulmonic valve is not well visualized. Mild (1+) pulmonic valve insufficiency. Great Vessels Normal sized aortic root. Pericardium/Pleural No pericardial effusion. MMode/2D Measurements & Calculations LVIDd: 3.8 cm IVSd: 1.1 cm Ao root diam: 3.2 cm LVIDs: 2.2 cm LVPWd: 1.2 cm RVDd: 3.5 cm FS: 43.1 % LAV(MOD-bp): 79.4 ml LVAd ap4: 23.2 cm2 SV(MOD-sp4): 36.1 ml LAV(MOD-bp) Indexed: 43.2 ml/m2 EDV(MOD-sp4): 57.2 ml LAV(MOD-sp2): 110.7 ml EDV(sp4-el): 59.5 ml LAV(MOD-sp4): 56.3 ml LVAs ap4: 13.5 cm2 ESV(MOD-sp4): 21.0 ml ESV(sp4-el): 21.8 ml EF(MOD-sp4): 63.2 % EF(sp4-el): 63.4 % SV(sp4-el): 37.7 ml LA A4 area: 20.5 cm2 LA dimension(2D): 5.1 cm RA A4 area: 21.0 cm2 Doppler Measurements & Calculations MV E max becky: 231.0 cm/sec MV V2 max: 247.6 cm/sec Ao V2 max: 189.6 cm/sec MV max P.5 mmHg Ao max P.4 mmHg MV V2 mean: 109.5 cm/sec Ao V2 mean: 135.8 cm/sec MV mean P.2 mmHg Ao mean P.1 mmHg MV V2 VTI: 60.3 cm Ao V2 VTI: 40.1 cm LV V1 max: 97.7 cm/sec PA V2 max: 116.6 cm/sec PI end-d becky: 96.2 cm/sec LV V1 max P.8 mmHg LV V1 mean P.3 mmHg LV V1 mean: 72.5 cm/sec LV V1 VTI: 23.4 cm TR max becky: 397.5 cm/sec MV P1/2t-pr_phl: 82.9 msec TR max P.2 mmHg Interpretation Summary Left ventricular systolic function is normal. The estimated ejection fraction is 65 %. Post operative septal motion. D shaped septum in systole and diastole. The left atrium is mildly enlarged. The right atrium is mildly enlarged. Stable appearing bioprosthetic mitral valve apparatus. Trivial transvalvular insufficiency of the mitral valve. Mild to moderate (1-2+) eccentric tricuspid valve insufficiency. Mild diffuse aortic valve calcification. Trivial aortic valve insufficiency. Mild (1+) pulmonic valve insufficiency. Right ventricular systolic pressure estimated to be 72 mmHg c/w severe pulmonary hypertension. Diastolic function is indeterminate. Ordering Physician: Jerzy Smiley Referring Physician: JORDY ENRIQUE Performed By: Starr Gomez, YANIQUECS, RVT
[2018-06-25 17:45] LABS: Bedside Glucose 142 mg/dL (70-110)
[2018-06-25] MEDS: Aspirin E.C. 81 MG Tablet PO (22:00)
[2018-06-25 22:11] LABS: Bedside Glucose 306 mg/dL (70-110)
[2018-06-26] VITALS (18 sets, daily range): BP systolic 114–174; BP diastolic 73–91; PULSE 52–143; RESP 16–20; TEMP 36.4–36.9; O2SAT 94–100
[2018-06-26] MEDS: Levothyroxine 75 MCG Tablet PO (06:33)
[2018-06-26 06:38] LABS: International Normalized Ratio 2.5; Prothrombin Time (Protime)PT. 27.3 SECONDS (11.7-14.9)
[2018-06-26 06:44] LABS: Anion Gap 10 (5-15); BUN 86 mg/dL (7-18); BUN/Creat Ratio 38.9 RATIO (10-20); Calcium,Total 8.7 mg/dL (8.5-10.1); Chloride 101 mmol/L (98-107); Creatinine, Serum 2.21 mg/dL (0.55-1.02); EST Glomerular Filtration Rate 23 mL/min (>60); Est Glom Filt Rate - Afr Amer 28 mL/min (>60); Estimated Creatinine Clearance 16.86 ml/min; Glucose 227 mg/dL (74-106); Potassium 5.4 mmol/L (3.5-5.1); Sodium Level 138 mmol/L (136-145)
[2018-06-26 07:05] LABS: Bedside Glucose 245 mg/dL (70-110)
[2018-06-26] MEDS: Ipratropium/Albuterol Sulfate 3 ML AMPUL.NEB INHALATION ×4 (07:08→20:24)
[2018-06-26] MEDS: Insulin Lispro 100 UNIT/ML INSULN.PEN 20 UNIT SC ×2 (07:55→11:32)
[2018-06-26] MEDS: Multivitamins,Ther W-Minerals Tablet 1 TABLET PO (08:00)
[2018-06-26] MEDS: Amiodarone 200 MG Tablet 100 MG PO (09:36)
[2018-06-26] MEDS: Furosemide 40 MG/4 ML Vial IV (09:37)
[2018-06-26] MEDS: Calcitriol 0.25 MCG Capsule PO (09:37)
[2018-06-26] MEDS: guaiFENesin 1,200 MG Tablet 1200 MG PO ×2 (09:37→21:38)
[2018-06-26] MEDS: Doxycycline 100 MG CAPSULE PO ×2 (09:38→21:38)
[2018-06-26] MEDS: 0.9% NaCl Peripheral Flush Adult/Peds IV ×2 (09:38→13:54)
--- NOTE | 2018-06-26 09:52 | PCM.PROGNOTE ---
Patient Problems: Active and Suspected Problems (Last Reviewed 06/22/18 @ 10:37 by JOSE ANGEL Solorio) COPD exacerbation (Acute) Acute on chronic combined systolic and diastolic CHF, NYHA class 2 (Acute) Subjective: Patient feels subjectively improved compared to previous. Patient is denying any chest pain. Patient still having paroxysmal cough with deep inhalation. Patient denies any bleeding complications. Objective: CT scan of the chest was personally reviewed. This does not show any interstitial thickening or alveolar infiltrates. Patient does have generous pulmonary artery and mediastinal lymphadenopathy appears improved compared to previous CT scan Echocardiogram showed an EF of 65% with well-functioning mitral valve. Patient's RVSP is elevated at 72 mmHg, higher than previous testing. - Physical Exam General: Alert, Oriented x3, Cooperative, No apparent distress, - - Obese. Speaking in full sentences. HEENT: Atraumatic, PERRLA, EOMI, Normocephalic Oral: Moist Mucosa, No Gingival or Mucosal Lesions/ Ulcerations Neck: Supple, No JVD, No Nodes, Trachea Midline Lungs: No rhonchi, No rales, Diminished, Wheezes, - - Symmetric expansion. No dullness to percussion. Cardiovascular: Normal S1, Normal S2, No murmurs, Irregular Rate, No rub noted, No Gallop Abdomen: Bowel Sounds Present, Soft, Non Tender, Non-Distended, Obese Extremities: No cyanosis, Capillary Refill Less than 3 Seconds, Edema - Slightly improved compared to yesterday Skin: - - No significant change compared to yesterday Musculoskeletal: No Tenderness to Palpation of Joints or Extremities, No Muscle Wasting Lymphatic: No Cervical, Supraclavicular, or Inguinal Adenopathy Neurological: Cranial nerves II-XII grossly intact, Neuro grossly intact, Motor Exam 5/5 strength throughout Psych/Mental Status: Alert and oriented to time, place, person, mood and affect Vital Signs Temp Pulse Resp BP Pulse Ox 36.7 C 56 L 18 158/73 H 96 06/26/18 07:51 06/26/18 07:51 06/26/18 07:51 06/26/18 07:51 06/26/18 07:51 Oxygen Flow Rate (L/min) 2 Oxygen Delivery Method Room Air Weight: 81.2 kg Body Mass Index (BMI) 31.3 Finger Stick Blood Glucose 257 Intake and Output for Last 24 Hours 06/24/18 06/25/18 06/26/18 23:59 23:59 23:59 Intake Total 800 / 800 1340 / 1340 Output Total 1200 / 1200 3000 / 3000 450 / 450 Balance -400 / -400 -1660 / -1660 -450 / -450 Microbiology Past 72 Hours 06/22/18 21:30 Respiratory Panel (PCR) - Final Mucosa - Nose Laboratory Tests Past 24 Hrs 06/26/18 06/26/18 06:10 06:10 PT 27.3 H INR 2.5 Sodium 138 Potassium 5.4 H Chloride 101 Carbon Dioxide 27.0 Anion Gap 10 BUN 86 H Creatinine 2.21 H Estim Creat Clear Calc 16.86 Est GFR (MDRD) Af Amer 28 L Est GFR (MDRD) Non-Af 23 L BUN/Creatinine Ratio 38.9 H Glucose 227 H Calcium 8.7 POC Glucose 06/26/18 06/25/18 06/25/18 06:56 22:04 17:38 POC Glucose 245 H 306 H 142 H 06/25/18 12:20 POC Glucose 308 H Clinical Impression(s) from Imaging Studies Chest CT 06/25/18 15:19 IMPRESSION: Lungs are adequately inflated and clear. Slight decrease in size of numerous mediastinal lymph nodes as noted in 2015. Cardiomegaly with median sternotomy wires Electronically Signed: Lionel Monroy DO at 9:46 EST Tel , Service support , Medical Necessity - Tobacco Use Smoking Status: Never smoker Assessment/Plan All Active Problems (Last Reviewed 06/22/18 @ 10:37 by Vicky Arzate NP-C) COPD exacerbation (Acute) Acute on chronic combined systolic and diastolic CHF, NYHA class 2 (Acute) Subdural bleeding (Acute) Mitral stenosis (Acute) Encounter for long-term current use of high risk medication (Acute) Paroxysmal atrial fibrillation (Acute) Dermatitis of lower extremity (Acute) Syncope (Acute) Edema of both legs (Acute) Type 2 diabetes mellitus without complications (Acute) Syncope (Acute) Possible TIA/stroke (Acute) Hemorrhagic stroke (Resolved) UTI (urinary tract infection) (Resolved) RECOMMENDATIONS: 1. Consider cardiology consult for potential right heart cath 2. Okay to transition to prednisone therapy and wean over 12-14 days 3. Okay to continue with diuretic therapy IMPRESSIONS: 1. Acute hypoxic respiratory insufficiency secondary to acute on chronic diastolic congestive heart failure Patient treated with multiple rounds of prednisone in the past with no improvement in previous pulmonary function test do not show obstructive lung disease. Patient does have an extensive history of cardiac involvement including a mitral valve repair. Patient's echocardiogram does show an elevation of pulmonary artery pressure suggesting cor pulmonale. Patient would need a right heart catheterization for quantification and clarification of pulmonary artery pressures. Consider consultation to cardiology as patient has had elevation of creatinine with previous attempts at diuresis. 2. Paroxysmal A. fib Patient currently very well rate controlled. Patient is on Coumadin at baseline. This would exacerbate severe diastolic dysfunction, but rate has been controlled throughout the hospitalization. 3. Cor pulmonale Patient with multiple issues leading to elevated pulmonary artery pressures. This is likely going to lead to increased lower extremity edema given RV dysfunction noted on previous echo. Repeat echocardiogram has been ordered. Lower extremity edema appears to be responding to compressive therapy. Await repeat pulmonary artery measurements. Do anticipate this is much improved from presentation as patient has received significant diuresis. 4. Hypothyroidism/obesity/advanced age/venous stasis/history of stroke/depression/diabetes mellitus type 2 Complicates care, management, recovery and prognosis. Okay to continue with current medications. Code Visit Inpatient E&M: [id number] [facility] L3
[2018-06-26] MEDS: Sodium Polystyrene Sulfonate 15 GM/60 ML UDC PO (09:55)
--- NOTE | 2018-06-26 09:57 | PN_ITS ---
Patient Problems: Active and Suspected Problems (Last Reviewed 06/22/18 @ 10:37 by Vicky Arzate NP-Vani) COPD exacerbation (Acute) Acute on chronic combined systolic and diastolic CHF, NYHA class 2 (Acute) Subjective: Patient feels subjectively improved compared to previous. Patient is denying any chest pain. Patient still having paroxysmal cough with deep inhalation. Patient denies any bleeding complications. Objective: CT scan of the chest was personally reviewed. This does not show any int erstitial thickening or alveolar infiltrates. Patient does have generous pulmonary artery and mediastinal lymphadenopathy appears improved compared to previous CT scan Echocardiogram showed an EF of 65% with well-functioning mitral valve. Patient's RVSP is elevated at 72 mmHg, higher than previous testing. - Physical Exam General: Alert, Oriented x3, Cooperative, No apparent distress, - - Obese. Speaking in full sentences. HEENT: Atraumatic, PERRLA, EOMI, Normocephalic Oral: Moist Mucosa, No Gingival or Mucosal Lesions/ Ulcerations Neck: Supple, No JVD, No Nodes, Trachea Midline Lungs: No rhonchi, No rales, Diminished, Wheezes, - - Symmetric expansion. No dullness to percussion. Cardiovascular: Normal S1, Normal S2, No murmurs, Irregular Rate, No rub noted, No Gallop Abdomen: Bowel Sounds Present, Soft, Non Tender, Non-Distended, Obese Extremities: No cyanosis, Capillary Refill Less than 3 Seconds, Edema - Slightly improved compared to yesterday Skin: - - No significant change compared to yesterday Musculoskeletal: No Tenderness to Palpation of Joints or Extremities, No Muscle Wasting Lymphatic: No Cervical, Supraclavicular, or Inguinal Adenopathy Neurological: Cranial nerves II-XII grossly intact, Neuro grossly intact, Motor Exam 5/5 strength throughout Psych/Mental Status: Alert and oriented to time, place, person, mood and affect Vital Signs Temp Pulse Resp BP Pulse Ox 36.7 C 56 L 18 158/73 H 96 06/26/18 07:51 06/26/18 07:51 06/26/18 07:51 06/26/18 07:51 06/26/18 07:51 Oxygen Flow Rate (L/min) 2 Oxygen Delivery Method Room Air Weight: 81.2 kg Body Mass Index (BMI) 31.3 Finger Stick Blood Glucose 257 Intake and Output for Last 24 Hours 06/24/18 06/25/18 06/26/18 23:59 23:59 23:59 Intake Total 800 / 800 1340 / 1340 Output Total 1200 / 1200 3000 / 3000 450 / 450 Balance -400 / -400 -1660 / -1660 -450 / -450 Microbiology Past 72 Hours 06/22/18 21:30 Respiratory Panel (PCR) - Final Mucosa - Nose Laboratory Tests Past 24 Hrs 06/26/18 06/26/18 06:10 06:10 PT 27.3 H INR 2.5 Sodium 138 Potassium 5.4 H Chloride 101 Carbon Dioxide 27.0 Anion Gap 10 BUN 86 H Creatinine 2.21 H Estim Creat Clear Calc 16.86 Est GFR (MDRD) Af Amer 28 L Est GFR (MDRD) Non-Af 23 L BUN/Creatinine Ratio 38.9 H Glucose 227 H Calcium 8.7 POC Glucose 06/26/18 06/25/18 06/25/18 06:56 22:04 17:38 POC Glucose 245 H 306 H 142 H 06/25/18 12:20 POC Glucose 308 H Clinical Impression(s) from Imaging Studies Chest CT 06/25/18 15:19 IMPRESSION: Lungs are adequately inflated and clear. Slight decrease in size of numerous mediastinal lymph nodes as noted in 2015. Cardiomegaly with median sternotomy wires Electronically Signed: Lionel Monroy DO at 9:46 EST Tel , Service support , Medical Necessity - Tobacco Use Smoking Status: Never smoker Assessment/Plan All Active Problems (Last Reviewed 06/22/18 @ 10:37 by Vicky Arzate, CIELO-C) COPD exacerbation (Acute) Acute on chronic combined systolic and diastolic CHF, NYHA class 2 (Acute) Subdural bleeding (Acute) Mitral stenosis (Acute) Encounter for long-term current use of high risk medication (Acute) Paroxysmal atrial fibrillation (Acute) Dermatitis of lower extremity (Acute) Syncope (Acute) Edema of both legs (Acute) Type 2 diabetes mellitus without complications (Acute) Syncope (Acute) Possible TIA/stroke (Acute) Hemorrhagic stroke (Resolved) UTI (urinary tract infection) (Resolved) RECOMMENDATIONS: 1. Consider cardiology consult for potential right heart cath 2. Okay to transition to prednisone therapy and wean over 12-14 days 3. Okay to continue with diuretic therapy IMPRESSIONS: 1. Acute hypoxic respiratory insufficiency secondary to acute on chronic diastolic congestive heart failure Patient treated with multiple rounds of prednisone in the past with no improvement in previous pulmonary function test do not show obstructive lung disease. Patient does have an extensive history of cardiac involvement including a mitral valve repair. Patient's echocardiogram does show an elevation of pulmonary artery pressure suggesting cor pulmonale. Patient would need a right heart catheterization for quantification and clarification of pulmonary artery pressures. Consider consultation to cardiology as patient has had elevation of creatinine with previous attempts at diuresis. 2. Paroxysmal A. fib Patient currently very well rate controlled. Patient is on Coumadin at baseline. This would exacerbate severe diastolic dysfunction, but rate has been controlled throughout the hospitalization. 3. Cor pulmonale Patient with multiple issues leading to elevated pulmonary artery pressures. This is likely going to lead to increased lower extremity edema given RV dysfunction noted on previous echo. Repeat echocardiogram has been ordered. Lower extremity edema appears to be responding to compressive therapy. Await repeat pulmonary artery measurements. Do anticipate this is much improved from presentation as patient has received significant diuresis. 4. Hypothyroidism/obesity/advanced age/venous stasis/history of stroke/depression/diabetes mellitus type 2 Complicates care, management, recovery and prognosis. Okay to continue with current medications. Code Visit Inpatient E&M: [id number] [facility] L3
[2018-06-26 11:40] LABS: Bedside Glucose 175 mg/dL (70-110)
--- NOTE | 2018-06-26 12:10 | EKG12_ITS ---
Test Reason : Blood Pressure : / mmHG Vent. Rate : 112 BPM Atrial Rate : 125 BPM P-R Int : 000 ms QRS Dur : 102 ms QT Int : 352 ms P-R-T Axes : 000 092 -34 degrees QTc Int : 480 ms Atrial fibrillation with rapid ventricular response Rightward axis Nonspecific ST abnormality Poor R wave progression Abnormal ECG Confirmed by SAJAN IZAGUIRRE, KENDRICK ([id number]), story editor ASUNCION BROWNLEE ([id number]) on 07/02/2018 2:21:05 PM Referred By: SANDY Confirmed By:KENDRICK MOELLER MD
--- NOTE | 2018-06-26 13:05 | PCM.PROGNOTE ---
<Sathish Fregoso - Last Filed: 06/26/18 13:05> Patient Problems: Active and Suspected Problems (Last Reviewed 06/22/18 @ 10:37 by Vicky Arzate NP-C) COPD exacerbation (Acute) Acute on chronic combined systolic and diastolic CHF, NYHA class 2 (Acute) Subjective: SOB about the same as yesterday, overall since admission much better. LE Edema better with BETZAIDA wraps in place. Dry cough. No fever or chills. No CP. - Physical Exam General: Alert, Oriented x3, Cooperative HEENT: Atraumatic, PERRLA, EOMI, Normocephalic Neck: Supple, No JVD, Negative Carotid Bruits Lungs: Clear to auscultation, Normal air movement Cardiovascular: Regular rate, No murmurs Abdomen: Bowel Sounds Present, Soft, Non Tender Extremities: No edema, Capillary Refill Less than 3 Seconds Skin: No rashes, No breakdown Musculoskeletal: No Tenderness to Palpation of Joints or Extremities Neurological: Cranial nerves II-XII grossly intact Psych/Mental Status: Normal Affect, Appropriate, Alert and oriented to time, place, person, mood and affect Vital Signs Temp Pulse Resp BP Pulse Ox 98.0 F 114 H 16 158/73 H 96 06/26/18 07:51 06/26/18 11:05 06/26/18 11:05 06/26/18 07:51 06/26/18 07:51 Oxygen Flow Rate (L/min) 2 Oxygen Delivery Method Room Air Weight: 179 lb 0.246 oz Body Mass Index (BMI) 31.3 Finger Stick Blood Glucose 257 Intake and Output for Last 24 Hours 06/24/18 06/25/18 06/26/18 23:59 23:59 23:59 Intake Total 800 / 800 1340 / 1340 Output Total 1200 / 1200 3000 / 3000 450 / 450 Balance -400 / -400 -1660 / -1660 -450 / -450 Microbiology Past 72 Hours 06/22/18 21:30 Respiratory Panel (PCR) - Final Mucosa - Nose Laboratory Tests Past 24 Hrs 06/26/18 06/26/18 06:10 06:10 PT 27.3 H INR 2.5 Sodium 138 Potassium 5.4 H Chloride 101 Carbon Dioxide 27.0 Anion Gap 10 BUN 86 H Creatinine 2.21 H Estim Creat Clear Calc 16.86 Est GFR (MDRD) Af Amer 28 L Est GFR (MDRD) Non-Af 23 L BUN/Creatinine Ratio 38.9 H Glucose 227 H Calcium 8.7 POC Glucose 06/26/18 06/26/18 06/25/18 11:30 06:56 22:04 POC Glucose 175 H 245 H 306 H 06/25/18 17:38 POC Glucose 142 H Medical Necessity - Tobacco Use Smoking Status: Never smoker Assessment/Plan All Active Problems (Last Reviewed 06/22/18 @ 10:37 by JOSE ANGEL Solorio) COPD exacerbation (Acute) Acute on chronic combined systolic and diastolic CHF, NYHA class 2 (Acute) Subdural bleeding (Acute) Mitral stenosis (Acute) Encounter for long-term current use of high risk medication (Acute) Paroxysmal atrial fibrillation (Acute) Dermatitis of lower extremity (Acute) Syncope (Acute) Edema of both legs (Acute) Type 2 diabetes mellitus without complications (Acute) Syncope (Acute) Possible TIA/stroke (Acute) Hemorrhagic stroke (Resolved) UTI (urinary tract infection) (Resolved) 1. Acute hypoxic respiratory failure 2/2 presumed COPD exacerbation and CHF exacerbation - complicated by moderate pulmonary htn. Echo EF 50%, PASP severely elevated. Lasix was decreased to daily yesterday given worsening renal function. -No COPD or underlying lung disease per pulm. -Cardiology consulted per pulm recommendation. 2. PAF - Now with RVR. Cardiology on board. 3. CKD4 - stable. 4.Hypothyroid - continue synthroid 5. Bioprosthetic aortic valve, possibly contributing to above - defer to cardiology. Other Chronic issues stable DVT ppx: Coumadin DC planning: still severely wheezy, SOB. Consult cardiology. PTOT. This patient was seen by Sathish Fregoso PA-C under the supervision of Doctor Cedillo. <Fredi Cedillo F - Last Filed: 06/26/18 14:37> - Physical Exam Vital Signs Temp Pulse Resp BP Pulse Ox 98.4 F 128 H 18 114/80 94 06/26/18 13:53 06/26/18 13:53 06/26/18 13:53 06/26/18 13:53 06/26/18 13:53 Oxygen Flow Rate (L/min) 2 Oxygen Delivery Method Room Air Weight: 179 lb 0.246 oz Body Mass Index (BMI) 31.3 Finger Stick Blood Glucose 257 Intake and Output for Last 24 Hours 06/24/18 06/25/18 06/26/18 23:59 23:59 23:59 Intake Total 800 / 800 1340 / 1340 600 / 600 Output Total 1200 / 1200 3000 / 3000 1650 / 1650 Balance -400 / -400 -1660 / -1660 -1050 / -1050 Microbiology Past 72 Hours 06/22/18 21:30 Respiratory Panel (PCR) - Final Mucosa - Nose Laboratory Tests Past 24 Hrs 06/26/18 06/26/18 06/26/18 06:10 06:10 06:10 PT 27.3 H INR 2.5 Sodium 138 Potassium 5.4 H Chloride 101 Carbon Dioxide 27.0 Anion Gap 10 BUN 86 H Creatinine 2.21 H Estim Creat Clear Calc 16.86 Est GFR (MDRD) Af Amer 28 L Est GFR (MDRD) Non-Af 23 L BUN/Creatinine Ratio 38.9 H Glucose 227 H Calcium 8.7 Magnesium 3.1 H POC Glucose 06/26/18 06/26/18 06/25/18 11:30 06:56 22:04 POC Glucose 175 H 245 H 306 H 06/25/18 17:38 POC Glucose 142 H Code Visit Addendum: Dr. Cedillo I personally examined the patient and reviewed the chart. I agree with the above. 78-year-old female with a history of chronic combined heart failure, mitral valve replacement 2014 with a bioprosthetic valve, coronary artery disease, presenting with shortness of breath. She did have bilateral lower extremity edema and was continued on IV Lasix, but was also being treated for possible COPD with IV steroids and doxycycline. Given that her creatinine has increased will decrease the amount of Lasix she is receiving as well as decrease the amount of steroids she is getting. Pulmonology was consulted to assist in the case and they performed a CT of her chest which was unremarkable and they repeated an echo which demonstrated a D septum and felt that she would benefit from a cardiology consult, this was subsequently placed. Prior to cardiology being able to see her she did go into A. fib with RVR and she was given a 10 mg bolus of Cardizem since she is allergic to beta-blockers, and her rapid heart rate did respond. She is already anticoagulated for her history of A. fib and is on amiodarone for rhythm control, may start on short acting Cardizem to control rate and decide on whether or not it is necessary prior to discharge. Inpatient E&M: [id number] Subs Hosp L2
--- NOTE | 2018-06-26 13:09 | PN_ITS ---
Addendum entered and electronically signed by KATINA Melendrez 06/26/18 15:00: Code Visit Addendum: The patient will be provided with a nebulizer prescription for home, as she will require ongoing breathing treatments given her ongoing respiratory issues that are chronic in nature. Original Note: <Sathish Fregoso - Last Filed: 06/26/18 13:05> Patient Problems: Active and Suspected Problems (Last Reviewed 06/22/18 @ 10:37 by Vicky Arzate NP-Vani) COPD exacerbation (Acute) Acute on chronic combined systolic and diastolic CHF, NYHA class 2 (Acute) Subjective: SOB about the same as yesterday, overall since admission much better. LE Edema better with BETZAIDA wraps in place. Dry cough. No fever or chills. No CP. - Physical Exam General: Alert, Oriented x3, Cooperative HEENT: Atraumatic, PERRLA, EOMI, Normocephalic Neck: Supple, No JVD, Negative Carotid Bruits Lungs: Clear to auscultation, Normal air movement Cardiovascular: Regular rate, No murmurs Abdomen: Bowel Sounds Present, Soft, Non Tender Extremities: No edema, Capillary Refill Less than 3 Seconds Skin: No rashes, No breakdown Musculoskeletal: No Tenderness to Palpation of Joints or Extremities Neurological: Cranial nerves II-XII grossly intact Psych/Mental Status: Normal Affect, Appropriate, Alert and oriented to time, place, person, mood and affect Vital Signs Temp Pulse Resp BP Pulse Ox 98.0 F 114 H 16 158/73 H 96 06/26/18 07:51 06/26/18 11:05 06/26/18 11:05 06/26/18 07:51 06/26/18 07:51 Oxygen Flow Rate (L/min) 2 Oxygen Delivery Method Room Air Weight: 179 lb 0.246 oz Body Mass Index (BMI) 31.3 Finger Stick Blood Glucose 257 Intake and Output for Last 24 Hours 06/24/18 06/25/18 06/26/18 23:59 23:59 23:59 Intake Total 800 / 800 1340 / 1340 Output Total 1200 / 1200 3000 / 3000 450 / 450 Balance -400 / -400 -1660 / -1660 -450 / -450 Microbiology Past 72 Hours 06/22/18 21:30 Respiratory Panel (PCR) - Final Mucosa - Nose Laboratory Tests Past 24 Hrs 06/26/18 06/26/18 06:10 06:10 PT 27.3 H INR 2.5 Sodium 138 Potassium 5.4 H Chloride 101 Carbon Dioxide 27.0 Anion Gap 10 BUN 86 H Creatinine 2.21 H Estim Creat Clear Calc 16.86 Est GFR (MDRD) Af Amer 28 L Est GFR (MDRD) Non-Af 23 L BUN/Creatinine Ratio 38.9 H Glucose 227 H Calcium 8.7 POC Glucose 06/26/18 06/26/18 06/25/18 11: 06:56 22:04 POC Glucose 175 H 245 H 306 H 06/25/18 17:38 POC Glucose 142 H Medical Necessity - Tobacco Use Smoking Status: Never smoker Assessment/Plan All Active Problems (Last Reviewed 06/22/18 @ 10:37 by JOSE ANGEL Solorio) COPD exacerbation (Acute) Acute on chronic combined systolic and diastolic CHF, NYHA class 2 (Acute) Subdural bleeding (Acute) Mitral stenosis (Acute) Encounter for long-term current use of high risk medication (Acute) Paroxysmal atrial fibrillation (Acute) Dermatitis of lower extremity (Acute) Syncope (Acute) Edema of both legs (Acute) Type 2 diabetes mellitus without complications (Acute) Syncope (Acute) Possible TIA/stroke (Acute) Hemorrhagic stroke (Resolved) UTI (urinary tract infection) (Resolved) 1. Acute hypoxic respiratory failure 2/2 presumed COPD exacerbation and CHF exacerbation - complicated by moderate pulmonary htn. Echo EF 50%, PASP severely elevated. Lasix was decreased to daily yesterday given worsening renal function. -No COPD or underlying lung disease per pulm. -Cardiology consulted per pulm recommendation. 2. PAF - Now with RVR. Cardiology on board. 3. CKD4 - stable. 4.Hypothyroid - continue synthroid 5. Bioprosthetic aortic valve, possibly contributing to above - defer to cardiology. Other Chronic issues stable DVT ppx: Coumadin DC planning: still severely wheezy, SOB. Consult cardiology. PTOT. This patient was seen by Sathish Fregoso PA-C under the supervision of Doctor Nguyen. <Fredi Cedillo F - Last Filed: 06/26/18 14:37> - Physical Exam Vital Signs Temp Pulse Resp BP Pulse Ox 98.4 F 128 H 18 114/80 94 06/26/18 13:53 06/26/18 13:53 06/26/18 13:53 06/26/18 13:53 06/26/18 13:53 Oxygen Flow Rate (L/min) 2 Oxygen Delivery Method Room Air Weight: 179 lb 0.246 oz Body Mass Index (BMI) 31.3 Finger Stick Blood Glucose 257 Intake and Output for Last 24 Hours 06/24/18 06/25/18 06/26/18 23:59 23:59 23:59 Intake Total 800 / 800 1340 / 1340 600 / 600 Output Total 1200 / 1200 3000 / 3000 1650 / 1650 Balance -400 / -400 -1660 / -1660 -1050 / -1050 Microbiology Past 72 Hours 06/22/18 21:30 Respiratory Panel (PCR) - Final Mucosa - Nose Laboratory Tests Past 24 Hrs 06/26/18 06/26/18 06/26/18 06:10 06:10 06:10 PT 27.3 H INR 2.5 Sodium 138 Potassium 5.4 H Chloride 101 Carbon Dioxide 27.0 Anion Gap 10 BUN 86 H Creatinine 2.21 H Estim Creat Clear Calc 16.86 Est GFR (MDRD) Af Amer 28 L Est GFR (MDRD) Non-Af 23 L BUN/Creatinine Ratio 38.9 H Glucose 227 H Calcium 8.7 Magnesium 3.1 H POC Glucose 06/26/18 06/26/18 06/25/18 11:30 06:56 22:04 POC Glucose 175 H 245 H 306 H 06/25/18 17:38 POC Glucose 142 H Code Visit Addendum: Dr. Cedillo I personally examined the patient and reviewed the chart. I agree with the above. 78-year-old female with a history of chronic combined heart failure, mitral valve replacement 2014 with a bioprosthetic valve, coronary artery disease, presenting with shortness of breath. She did have bilateral lower extremity edema and was continued on IV Lasix, but was also being treated for possible COPD with IV steroids and doxycycline. Given that her creatinine has increased will decrease the amount of Lasix she is receiving as well as decrease the amount of steroids she is getting. Pulmonology was consulted to assist in the case and they performed a CT of her chest which was unremarkable and they repeated an echo which demonstrated a D septum and felt that she would benefit from a cardiology consult, this was subsequently placed. Prior to cardiology being able to see her she did go into A. fib with RVR and she was given a 10 mg bolus of Cardizem since she is allergic to beta-blockers, and her rapid heart rate did respond. She is already anticoagulated for her history of A. fib and is on amiodarone for rhythm control, may start on short acting Cardizem to control rate and decide on whether or not it is necessary prior to discharge. Inpatient E&M: 52799 Subs Hosp L2
[2018-06-26 13:29] LABS: Magnesium 3.1 mg/dL (1.6-2.6)
[2018-06-26] MEDS: dilTIAZem 25 MG/5 ML Vial 10 MG IV BOLUS (13:54)
--- NOTE | 2018-06-26 16:38 | CASEMGMT ---
Information for nebulizer sent to [facility]. Green sheet on chart for weekend d/c. Staff will just need to call [facility] and let them know patient is being discharged. Beata UNDERWOOD MSW
[2018-06-26 17:11] LABS: Bedside Glucose 92 mg/dL (70-110)
--- NOTE | 2018-06-26 19:17 | CON.PCM_ITS ---
Problem List (1) CAD (coronary artery disease) Status: Chronic Qualifiers: Coronary Disease-Associated Artery/Lesion type: paimiut artery (2) S/P PTCA (percutaneous transluminal coronary angioplasty) Status: Chronic (3) S/P CABG x 1 Status: Chronic (4) History of mitral valve replacement with bioprosthetic valve Status: Chronic Comment: 09/29/2014: MVR with 27 mm Medtronic tisue valve per Dr. Angela Alexis (5) History of maze procedure Status: Chronic Comment: 09/29/2014 atricure pulmonary vein isolation MAZE with ligation of left atrial appendage per Dr. Angela Alexis (6) S/P left atrial appendage ligation Status: Chronic (7) Paroxysmal atrial fibrillation Status: Chronic (8) Chronic diastolic heart failure Status: Chronic (9) Pulmonary hypertension Status: Chronic (10) Hyperlipidemia Status: Chronic Qualifiers: Hyperlipidemia type: pure hypercholesterolemia Qualified Code(s): E78.00 - Pure hypercholesterolemia, unspecified; E78.00 - Pure hypercholesterolemia, unspecified; E78.00 - Pure hypercholesterolemia, unspecified; E78.0 - Pure hypercholesterolemia (11) Hypertension Status: Chronic Qualifiers: Hypertension type: essential hypertension Qualified Code(s): I10 - Essential (primary) hypertension Comment: resistant HTN (12) Diabetes mellitus type II, uncontrolled Status: Chronic (13) CRF (chronic renal failure) Status: Chronic Qualifiers: Chronic kidney disease stage: stage 3 (moderate) Qualified Code(s): N18.3 - Chronic kidney disease, stage 3 (moderate); N18.3 - Chronic kidney disease, stage 3 (moderate) (14) Edema of both legs Status: Acute Reason for Consult Date of Consultation: 06/26/18 History of Present Illness: The patient is a 78 year old who is referred for cardiovascular evaluation based upon concerns of a complex cardiovascular history with underlying CAD, PCI, CABG, mitral valve disorder/stenosis status post mitral valve replacement, status post Maze procedure, status post left atrial appendage ligation, paroxysmal atrial fibrillation, chronic diastolic mediated CHF, pulmonary hypertension, hyperlipidemia, hypertension, diabetes mellitus, chronic renal insufficiency, as well as ongoing bilateral lower extremity peripheral pitting edema. The patient presented with what she believes was progressive shortness of breath/dyspnea and lower extremity edema. She was evaluated by internal medicine and felt to have concerns of an underlying pulmonary disease process. She was treated with antibiotic therapy, diuretic therapy, and corticosteroid therapy. She subsequently underwent pulmonary consultation which raise concerns of her underlying presentation potentially being related to her cardiovascular related history versus a separate underlying pulmonary history. She has denied ongoing chest discomfort. She has denied ongoing palpitations or rapid rates. She denies any syncope/syncope. She has admitted to lower extremity peripheral pitting edema. During her hospitalization she has been noted this day to have recurrence of her paroxysmal atrial fibrillation. Her ECG demonstrated evidence of atrial fibrillation with nonspecific ST and T wave abnormality. She was treated medically with IV diltiazem and subsequently low-dose short acting oral diltiazem therapy. She is also gone through additional evaluation during her hospitalization with a transthoracic echocardiogram. The results are as noted below. She believes overall she is somewhat improved with respect to her breathing and her lower extremity edema. However she is concerned about her ongoing cardiovascular disease process and its long-term effects on not only her resp iratory status, her edema, and her renal function. She states she did undergo transient hemodialysis in the past and does not wish to undergo that again in the future. [] Past Medical History Allergies/Adverse Reactions: Allergies dronedarone [From Multaq] Allergy (Severe, Verified 06/22/18 18:31) difficulty breathing dronedarone HCl [From Multaq] Allergy (Verified 06/22/18 10:04) Other unable to breath quinapril [From Accupril] Adverse Reaction (Severe, Verified 06/22/18 10:04) near syncope shellfish derived Adverse Reaction (Severe, Verified 06/22/18 10:04) Causes swelling cortisone Adverse Reaction (Intermediate, Verified 06/22/18 10:04) swelling hydralazine Adverse Reaction (Intermediate, Verified 06/22/18 10:04) weakness Beta-Blockers (Beta-Adrenergic Bloc Adverse Reaction (Verified 06/22/18 10:04) Other WHEEZING, shaking, passes out prednisone Adverse Reaction (Verified 06/22/18 10:04) Swelling CARDURA Allergy (Uncoded 06/22/18 10:04) Other PT NOT SURE- POSSIBLE SWELLING NORVASC Allergy (Uncoded 06/22/18 10:04) Swelling SCALLOPS Allergy (Uncoded 06/22/18 10:04) Swelling SULFA Allergy (Uncoded 06/22/18 10:04) Other SPOTS IN MOUTH/SORE MOUTH ATIVAN Adverse Reaction (Uncoded 06/22/18 10:04) Other HALLUCINATIONS METATOPOLOL TARTATE Adverse Reaction (Uncoded 06/22/18 10:04) Other Home Medications: Ambulatory Orders Medication Instructions Recorded RX: Insulin Aspart [Novolog 10 units SC TIDCM 09/20/14 Flexpen] RX: Albuterol Inhaler [Ventolin 2 puff INHALATION Q4H PRN PRN #1 10/27/14 Hfa] inhaler RX: Calcitriol [Rocaltrol] 0.25 mcg PO MOWEFR 01/16/17 RX: Lisinopril [Zestril] 20 mg PO DAILY 01/16/17 insulin glargine (U-100) 100 50 units SC BREAKFAST 07/15/17 unit/mL (3 mL) subcutaneous pen potassium chloride ER 10 mEq 10 meq PO QDAY 11/25/17 capsule,extended release RX: Aspirin E.C. [Ecotrin] 81 mg PO QHS 01/07/18 RX: Lecithin 1,200 mg PO QHS 01/08/18 Amiodarone HCl 100 mg PO DAILY 06/22/18 Hydrocortisone 1 applic TP DAILY 06/22/18 Levothyroxine Sodium [Synthroid] 75 mcg PO DAILY 06/22/18 Multivit-Min/Iron/Folic/Lutein 1 tab PO DAILY 06/22/18 [Centrum Silver Women Tablet] RX: Albuterol Aerosols [Ventolin 3 ml INHALATION BID 06/22/18 Aerosols] RX: Furosemide [Lasix] 40 mg PO BID 06/22/18 Warfarin Sodium 3 mg PO SUTUTHSA 06/22/18 Warfarin Sodium 4 mg PO MOWEFR 06/22/18 Past Medical History (Chronic Problems): Chronic Problems (Last Reviewed 06/22/18 @ 10:37 by Vicky Arzate NP-Vani) CAD (coronary artery disease) (Chronic) S/P PTCA (percutaneous transluminal coronary angioplasty) (Chronic) S/P CABG x 1 (Chronic) S/P left atrial appendage ligation (Chronic) Atherosclerosis of coronary artery bypass graft without angina pectoris (Chronic) Postsurgical percutaneous transluminal coronary angioplasty (PTCA) status (Chronic) PTCA of LAD ; Paroxysmal atrial fibrillation (Chronic) Depression (Chronic) retirement (current) use of anticoagulants (Chronic) Bradycardia (Chronic) S/P CABG x 1 (Chronic 09/29/14) 09/29/2014 CABG: SVG to distal LAD [place] per Dr. Miller 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 Angela Alexis History of mitral valve replacement with bioprosthetic valve (Chronic 09/29/14) 09/29/2014: MVR with 27 mm Medtronic tisue valve per Dr. Angela Alexis Atrial fibrillation (Chronic) Hyperlipidemia (Chronic) Hypertension (Chronic) resistant HTN Cerebrovascular disease (Chronic) ischemic stroke w hemorrhagic transformation in the setting of coumadin anticoagulation Anemia (Chronic) CRF (chronic renal failure) (Chronic) Anticoagulation goal of INR 2 to 3 (Chronic) Diabetes mellitus type II, uncontrolled (Chronic) Stroke with left visual deficit (Chronic) Chronic diastolic heart failure (Chronic) Pulmonary hypertension (Chronic) MAGALI (obstructive sleep apnea) (Chronic) on CPAP Surgical History: angioplasty, cataract, - - *Family History Maternal Family History: Family History (Last Reviewed 06/22/18 @ 10:37 by JOSE ANGEL Solorio) Father CAD (coronary artery disease) Hypertension Myocardial infarction Sudden cardiac Hyperlipidemia Mother Breast cancer Brother Cancer Sister Breast cancer Hyperlipidemia Sister Hyperlipidemia History Items: Cancer Paternal Family History: Family History (Last Reviewed 06/22/18 @ 10:37 by JOSE ANGEL Solorio) Father CAD (coronary artery disease) Hypertension Myocardial infarction Sudden cardiac Hyperlipidemia Mother Breast cancer Brother Cancer Sister Breast cancer Hyperlipidemia Sister Hyperlipidemia History Items: Heart Disease, Stroke Sibling Family History: Family History (Last Reviewed 06/22/18 @ 10:37 by JOSE ANGEL Solorio) Father CAD (coronary artery disease) Hypertension Myocardial infarction Sudden cardiac Hyperlipidemia Mother Breast cancer Brother Cancer Sister Breast cancer Hyperlipidemia Sister Hyperlipidemia History Items: Cancer - in brother and sister Smoking Status: Never smoker Alcohol: None Drugs: None Review of Systems - Review of Systems General: Denies: Fever, Night Sweats, Fatigue Cardiovascular: Reports: Shortness of Breath, Peripheral Edema. Denies: Chest Discomfort, Orthopnea, PND, Palpitations, Lightheadedness, Dizziness, Near Syncope, Syncope Respiratory: Reports: Shortness of Breath. Denies: Cough, Sputum Production, Hemoptysis Gastrointestinal: Denies: Hematemesis, Hematochezia, Melena Genitourinary: Denies: Dysuria, Hematuria Skin: Denies: Rash Subjectve: Is a 78-year-old white female who appears to be resting reasonably comfortably at the moment in no acute distress. Objective: Vital Signs Temp Pulse Resp BP Pulse Ox 97.6 F L 99 18 156/86 H 100 06/26/18 16:55 06/26/18 16:55 06/26/18 16:55 06/26/18 16:55 06/26/18 16:55 Oxygen Flow Rate (L/min) 2 Oxygen Delivery Method Room Air Weight: 179 lb 0.246 oz Body Mass Index (BMI) 31.3 Finger Stick Blood Glucose 257 Intake and Output for Last 24 Hours 06/24/18 06/25/18 06/26/18 23:59 23:59 23:59 Intake Total 800 / 800 1340 / 1340 1080 / 1080 Output Total 1200 / 1200 3000 / 3000 2950 / 2950 Balance -400 / -400 -1660 / -1660 -1870 / -1870 General: Awake, Alert, Oriented x 3, Cooperative, No Acute Distress HEENT: Atraumatic, Normocephalic, EOMI, Sclera Non Icteric Oral: Moist Mucosa Neck: Supple, Good ROM, No JVD Lungs: Expiratory Wheezes-Dipesh Cardiovascular: Irregular Rhythm, Normal S1, Normal S2 Murmur Murmur: Grade 2/6, Mid Systolic, LLSB Vascular: No Carotid Bruits Abdomen: Bowel Sounds Present, Soft, Non Tender Extremities: Mild RLE Edema, Mild LLE Edema, - - Bilateral lower extremities noted to be in mendez wraps Psych/Mental Status: Appropriate 06/26/18 06:10: Sodium 138, Potassium 5.4 H, Chloride 101, Carbon Dioxide 27.0, Anion Gap 10, BUN 86 H, Creatinine 2.21 H, Est GFR (MDRD) Af Amer 28 L, Est GFR (MDRD) Non-Af 23 L, BUN/Creatinine Ratio 38.9 H, Glucose 227 H, Calcium 8.7 06/26/18 06:10: PT 27.3 H, INR 2.5 06/26/18 06:10: Magnesium 3.1 H Rhythm: Atrial fibrillation EKG: Atrial fibrillation; poor R wave progression; nonspecific ST/T wave abnormality ECHO: 06/25/2018: Left ventricle normal with an LVEF of 65%; postoperative septal wall motion; D-shaped septum in systole and diastole; mild biatrial enlargement; stable appearing bioprosthetic mitral valve apparatus with trivial transvalvular MR; mild to moderate TR; mild diffuse aortic valve calcification with trivial AI; mild PI; estimated RV systolic pressure of 72 mmHg compatible severe pulmonary hypertension; diastolic considered indeterminant Cardiac Cath: 09/26/2014: [facility]: Conclusion: Left main coronary artery-normal; LAD-proximal 70% stenosis-previously placed stent noted; LCx considered codominant with no significant stenosis; RCA considered codominant with no significant stenosis; severe pulmonary hypertension with right atrial pressure is being reported at 20 mmHg, right ventricular pressure reported at 72/14 mmHg, pulmonary artery pressure was reported at 77/32 mmHg, and pulmonary capillary wedge pressure reported at 40 mmHg; mitral valve stenosis reported severe with a mean gradient of 20 mmHg and a mitral valve area of 0.6 cm? EPS: 10/25/2009: [facility]: Successful pulmonary vein isolation and ablation sinus bradycardia thought related to underlying sedation and vagal tone CT Surgery: 09/29/2014: [facility]: CABG with SVG to the distal LAD; mitral valve replacement with a 27 mm Medtronic tissue valve; pulmonary vein isolation/Maze procedure; ligation of the left atrial appendage CXR: Please see official report: Comment of COPD with no acute changes Chest CT Scan: Please see official report: Comment on normal lungs Assessment/Plan 1. CAD status post PCI status post CABG At the present time the patient appears to be without any acute symptoms with respect to her underlying CAD and/or graft vessel status. Ideally she would continue medical management with a combination of aspirin, nitrates as needed, possibly beta-blockers, afterload reducing agents as deemed appropriate, and lipid-lowering therapy. However the patient states she has intolerances to many medications and thus cannot be on all of these medications. The patient's left ventricle is been reassessed recently. Her overall LV wall motion and systolic function appear to be preserved. If the patient developed any concerning symptoms related to her underlying CAD status then she may need to be considered for further noninvasive and/or invasive evaluation. However based upon her elevated creatinine level and her previous history of transient dialysis prior to proceeding to any invasive evaluation involving IV contrast to be reasonable to consider a noninvasive study such as a parmacologic stress nuclear imaging study to evaluate whether or not the patient had significant stress-induced myocardial ischemia warranting further invasive evaluation and care. 2. Mitral valve disorder/stenosis status post mitral valve replacement- bioprosthetic The patient has been followed for her mitral valve disorder status post a mitral valve replacement with noninvasive studies/echocardiographic studies. Overall her mitral valve apparatus has remained stable without significant changes. At the present time she will need to continue to be followed by history, exam, and echocardiogram. She should continue AHA antibiotic prophylaxis. 3. Paroxysmal atrial fibrillation status post surgical based Maze procedure and left atrial appendage ligation The patient has had recurrent paroxysmal atrial fibrillation this day. She has been treated with low-dose IV diltiazem therapy and low-dose short acting oral diltiazem therapy as she states she cannot tolerate high-dose medications and/or beta-blockers. She has remained on low-dose amiodarone therapy and attempt to maintain her cardiac rhythm. She is also remained on anticoagulant therapy which is being adjusted based upon interaction with her recent antibiotic use and corticosteroid use. If the patient does not return to sinus rhythm then she will need to be considered for continued rate control therapy along with her antiarrhythmic therapy and anticoagulant therapy. If over time she is not able to maintain sinus rhythm that she may no longer need her antiarrhythmic therapy. 4. Chronic diastolic mediated CHF The patient appears to have overall preserved LV systolic function. Based upon her recent echocardiogram her diastolic parameters were considered indeterminate. However in the past she has been considered to have a chronic diastolic mediated CHF. At the present time with respect to this issue she will need continued medical management to maintain control of her blood pressure and her volume status. 5. Pulmonary hypertension Has severe pulmonary hypertension. Her pulmonary pressures were markedly elevated prior to her surgery and appear to remain elevated since her surgery. Certainly this can have an effect with respect to her symptoms and with respect to the possibility of cor pulmonale and right heart failure contributing to her lower extremity edema. At the present time she will need continued combined medical management of her multiple medical issues. She may need to be considered for referral to a tertiary care center for further pulmonary hypertension evaluation and whether or not she would be a candidate for aggressive pulmonary hypertension vasodilator therapy. 6. Hyperlipidemia The patient has a history of hyperlipidemia. She is not on lipid-lowering therapy at this time based upon her report of intolerance. 7. Hypertension The patient will need to continue medical management as deemed appropriate. 8. Diabetes mellitus The patient will continue under the care of internal medicine. 9. Renal insufficiency The patient's creatinine level is fluctuated possibly secondary to her recent volume shifts from her medical management. Her medications will need to be adjusted as deemed appropriate. Her creatinine levels will need to be followed. As noted above the patient states she was on transient dialysis in the past. She states she wants to do everything she can to avoid that again in the future. 10. Lower extremity peripheral pitting edema Again this may be secondary to concerns of her pulmonary hypertension with possible cor pulmonale and right heart failure. At the present time her therapy would include medication adjustment with diuretic therapy as well as local therapy which may include Mendez wraps. Of note, the patient will continue cardiovascular evaluation care as deemed appropriate. There is still concern that she may have an underlying pulmonary disease process based upon her examination demonstrating her marked expiratory wheezing bilaterally. She may need to be considered for pulmonary function studies for further evaluation of her underlying pulmonary status despite her chest x-ray and chest CT scan reportedly demonstrating no acute pulmonary disease process. Again, she may also need to be referred to a tertiary care center for further evaluation of pulmonary hypertension and whether or not she is a candidate for aggressive pulmonary vasodilator therapy, etc. Comment: The patient's case was discussed and reviewed with the patient and her [facility] hospitalist team. This note was generated with [employer] dictation software. It may contain incorrect words, spelling, and punctuation that were not noted in checking the note before signing.
[2018-06-26] MEDS: Aspirin E.C. 81 MG Tablet PO (21:38)
[2018-06-26] MEDS: dilTIAZem 30 MG Tablet PO (21:38)
[2018-06-26 21:46] LABS: Bedside Glucose 208 mg/dL (70-110)
[2018-06-27] VITALS (18 sets, daily range): BP systolic 122–162; BP diastolic 64–94; PULSE 96–114; RESP 18–20; TEMP 36.3–36.8; O2SAT 94–99
[2018-06-27] MEDS: dilTIAZem 30 MG Tablet PO ×4 (06:33→23:51)
[2018-06-27] MEDS: Levothyroxine 75 MCG Tablet PO (06:34)
[2018-06-27 06:41] LABS: Bedside Glucose 104 mg/dL (70-110)
[2018-06-27 07:07] LABS: Prothrombin Time (Protime)PT. 22.9 SECONDS (11.7-14.9)
[2018-06-27] MEDS: Ipratropium/Albuterol Sulfate 3 ML AMPUL.NEB INHALATION ×3 (07:15→23:29)
[2018-06-27 07:30] LABS: Anion Gap 7 (5-15); BUN 70 mg/dL (7-18); BUN/Creat Ratio 36.6 RATIO (10-20); Calcium,Total 8.6 mg/dL (8.5-10.1); Chloride 104 mmol/L (98-107); Creatinine, Serum 1.91 mg/dL (0.55-1.02); EST Glomerular Filtration Rate 27 mL/min (>60); Est Glom Filt Rate - Afr Amer 33 mL/min (>60); Estimated Creatinine Clearance 19.51 ml/min; Glucose 92 mg/dL (74-106); Potassium 4.7 mmol/L (3.5-5.1); Sodium Level 142 mmol/L (136-145)
[2018-06-27] MEDS: Insulin Lispro 100 UNIT/ML INSULN.PEN 22 UNIT SC ×2 (08:09→11:43)
[2018-06-27] MEDS: Multivitamins,Ther W-Minerals Tablet 1 TABLET PO (08:13)
--- NOTE | 2018-06-27 09:19 | NURSING ---
78 y/o F sitting relaxed in chair, A&O x 3 to person, place, and time (month and year). Pleasant, calm and cooperative with care, with good family support. 0800 medications given, tolerated well. Pt reports slight lightheadedness with postural changes (supine 142/78 to sitting 122/75) and rates 0/10 on pain scale. All current needs met, able to make needs known. Call light in reach. JANEE Hannah
--- NOTE | 2018-06-27 09:21 | PCM.PROGNOTE ---
Patient Problems: Active and Suspected Problems (Last Reviewed 06/22/18 @ 10:37 by JOSE ANGEL Solorio) COPD exacerbation (Acute) Acute on chronic combined systolic and diastolic CHF, NYHA class 2 (Acute) Subjective: Patient noted to be in A. fib RVR overnight requiring addition of Cardizem. Patient woke this morning and reports her dyspnea is much improved compared to previous. Patient did report some dizziness with standing, but no syncope. No palpitations have been reported. - Physical Exam General: Alert, Oriented x3, Cooperative, No apparent distress, Well developed, Well nourished, - - Speaks in full sentences. Appears stated age. HEENT: Atraumatic, PERRLA, EOMI, Normocephalic, - - No scleral icterus or injection noted. Oral: Moist Mucosa, No Gingival or Mucosal Lesions/ Ulcerations Neck: Supple, No JVD, No Nodes, Trachea Midline Lungs: No rhonchi, No rales, Diminished, Wheezes - Much improved compared to previous, - - Symmetric expansion. No dullness to percussion. Cardiovascular: Normal S1, Normal S2, Irregular Rate, Murmur, No rub noted, No Gallop Abdomen: Bowel Sounds Present, Soft, Non Tender, Non-Distended, Obese Extremities: No clubbing, No cyanosis, Capillary Refill Less than 3 Seconds, Edema - Improving Skin: - - No significant change compared to previous Musculoskeletal: No Tenderness to Palpation of Joints or Extremities, No Muscle Wasting Lymphatic: No Cervical, Supraclavicular, or Inguinal Adenopathy Neurological: Cranial nerves II-XII grossly intact, Neuro grossly intact, Motor Exam 5/5 strength throughout Psych/Mental Status: Alert and oriented to time, place, person, mood and affect Vital Signs Temp Pulse Resp BP Pulse Ox 36.6 C 96 18 142/78 H 96 06/27/18 09:17 06/27/18 09:19 06/27/18 09:17 18 09:19 06/27/18 09:17 Oxygen Flow Rate (L/min) 2.5 Oxygen Delivery Method Room Air Weight: 80.3 kg Body Mass Index (BMI) 31.3 Finger Stick Blood Glucose 257 Orthostatic Vital Signs Start: 06/27/18 09:19 Freq: q24h Status: Active Protocol: Activity Type Activity Date Activity User E-Sign Co-Sign Detail Recorded Client Recorded Date Recorded By Document 06/27/18 09:19 AMG [id number] 06/27/18 09:20 AMG 06/27/18 09:19 Orthostatic Vitals Standing -Blood Pressure (90/60-120/80) 122/64 H -Extremity Use Right Arm -Pulse Rate (60-100) 101 H Sitting -Blood Pressure (90/60-120/80) 122/75 H -Extremity Use Right Arm -Pulse Rate (60-100) 98 Lying -Blood Pressure (90/60-120/80) 142/78 H -Extremity Use Right Arm -Pulse Rate (60-100) 96 Intake and Output for Last 24 Hours 06/25/18 06/26/18 06/27/18 23:59 23:59 23:59 Intake Total 1340 / 1340 1200 / 1200 100 / 100 Output Total 3000 / 3000 3600 / 3600 900 / 900 Balance -1660 / -1660 -2400 / -2400 -800 / -800 Laboratory Tests Past 24 Hrs 06/26/18 06/27/18 06/27/18 06:10 06:38 06:38 PT 22.9 H INR 2.0 Sodium 142 Potassium 4.7 Chloride 104 Carbon Dioxide 31.0 Anion Gap 7 BUN 70 H Creatinine 1.91 H Estim Creat Clear Calc 19.51 Est GFR (MDRD) Af Amer 33 L Est GFR (MDRD) Non-Af 27 L BUN/Creatinine Ratio 36.6 H Glucose 92 Calcium 8.6 Magnesium 3.1 H POC Glucose 06/27/18 06/26/18 06/26/18 06:38 21:33 16:53 POC Glucose 104 208 H 92 06/26/18 11:30 POC Glucose 175 H Clinical Impression(s) from Imaging Studies Chest CT 06/25/18 15:19 IMPRESSION: Lungs are adequately inflated and clear. Slight decrease in size of numerous mediastinal lymph nodes as noted in 2015. Cardiomegaly with median sternotomy wires Electronically Signed: Lionel Monroy DO at 9:46 EST Tel , Service support , Medical Necessity - Tobacco Use Smoking Status: Never smoker Assessment/Plan All Active Problems (Last Reviewed 06/22/18 @ 10:37 by Vicky Arzate, CIELO-C) COPD exacerbation (Acute) Acute on chronic combined systolic and diastolic CHF, NYHA class 2 (Acute) Subdural bleeding (Acute) Mitral stenosis (Acute) Encounter for long-term current use of high risk medication (Acute) Dermatitis of lower extremity (Acute) Syncope (Acute) Edema of both legs (Acute) Type 2 diabetes mellitus without complications (Acute) Syncope (Acute) Possible TIA/stroke (Acute) Hemorrhagic stroke (Resolved) UTI (urinary tract infection) (Resolved) RECOMMENDATIONS: 1. Right heart catheterization as an outpatient 2. Okay to transition to prednisone therapy and wean over 12-14 days 3. Okay to continue with diuretic therapy 4. Check orthostatics prior to any disposition IMPRESSIONS: 1. Acute hypoxic respiratory insufficiency secondary to acute on chronic diastolic congestive heart failure Patient treated with multiple rounds of prednisone in the past with no improvement in previous pulmonary function test do not show obstructive lung disease. Patient does have an extensive history of cardiac involvement including a mitral valve repair. Patient's echocardiogram does show an elevation of pulmonary artery pressure suggesting cor pulmonale. Patient would need a right heart catheterization for quantification and clarification of pulmonary artery pressures. Cardiology has evaluated the patient. Right heart catheterization would be required prior to any tertiary referral for vasoactive medications for pulmonary hypertension 2. Paroxysmal A. fib Patient currently very well rate controlled. Patient did go into RVR overnight. Patient is on Coumadin at baseline. This would exacerbate severe diastolic dysfunction, but rate has been controlled throughout the hospitalization. 3. Cor pulmonale Patient with multiple issues leading to elevated pulmonary artery pressures. This is likely going to lead to increased lower extremity edema given RV dysfunction noted on previous echo. Repeat echocardiogram noted significant increase in pulmonary artery pressures despite diuresis as an inpatient. Lower extremity edema appears to be responding to compressive therapy. Do anticipate this is much improved from presentation as patient has received significant diuresis. Initial pulmonary artery pressures may have been in excess of 90 mmHg. 4. Hypothyroidism/obesity/advanced age/venous stasis/history of stroke/depression/diabetes mellitus type 2 Complicates care, management, recovery and prognosis. Okay to continue with current medications. Code Visit Inpatient E&M: 33642 Subs Hosp L2
[2018-06-27] MEDS: Doxycycline 100 MG CAPSULE PO (10:57)
[2018-06-27] MEDS: Amiodarone 200 MG Tablet 100 MG PO (10:57)
[2018-06-27] MEDS: guaiFENesin 1,200 MG Tablet 1200 MG PO ×2 (10:57→20:52)
[2018-06-27] MEDS: Hydrocortisone 2.5% Crm 1 APPLIC TOPICAL (10:58)
[2018-06-27] MEDS: Furosemide 40 MG/4 ML Vial IV (10:59)
[2018-06-27 11:51] LABS: Bedside Glucose 171 mg/dL (70-110)
--- NOTE | 2018-06-27 12:50 | PCM.PN.CARD ---
Subjectve: The patient notes she is feeling better overall with respect to her breathing and her lower extremity edema. She continues to note the sensation that her heart rate intermittently elevates. Objective: Vital Signs Temp Pulse Resp BP Pulse Ox 97.8 F 108 H 18 142/78 H 96 06/27/18 09:17 06/27/18 11:15 06/27/18 10:46 06/27/18 09:19 06/27/18 09:17 Oxygen Flow Rate (L/min) 2.5 Oxygen Delivery Method Room Air Weight: 177 lb 0.499 oz Body Mass Index (BMI) 31.3 Finger Stick Blood Glucose 257 Orthostatic Vital Signs Start: 06/27/18 09:19 Freq: q24h Status: Active Protocol: Activity Type Activity Date Activity User E-Sign Co-Sign Detail Recorded Client Recorded Date Recorded By Document 06/27/18 09:19 AMG [id number] 06/27/18 09:20 AMG 06/27/18 09:19 Orthostatic Vitals Standing -Blood Pressure (90/60-120/80 mm Hg) 122/64 H -Extremity Use Right Arm -Pulse Rate (60-100 beats/min) 101 H Sitting -Blood Pressure (90/60-120/80 mm Hg) 122/75 H -Extremity Use Right Arm -Pulse Rate (60-100 beats/min) 98 Lying -Blood Pressure (90/60-120/80 mm Hg) 142/78 H -Extremity Use Right Arm -Pulse Rate (60-100 beats/min) 96 Intake and Output for Last 24 Hours 06/25/18 06/26/18 06/27/18 23:59 23:59 23:59 Intake Total 1340 / 1340 1200 / 1200 1060 / 1060 Output Total 3000 / 3000 3600 / 3600 1600 / 1600 Balance -1660 / -1660 -2400 / -2400 -540 / -540 General: Awake, Alert, Oriented x 3, Cooperative, No Acute Distress HEENT: Atraumatic, Normocephalic, PERRL, EOMI, Sclera Non Icteric Oral: Moist Mucosa Neck: Supple, Good ROM, No JVD Lungs: Expiratory Wheezes-Dipesh - Decreased compared to yesterday Cardiovascular: Irregular Rhythm, Normal S1, Normal S2 Murmur Murmur: Grade 2/6, Mid Systolic, LLSB Abdomen: Bowel Sounds Present, Soft, Non Tender Extremities: Mild RLE Edema, Mild LLE Edema, - - Continued bilateral lower extremity Mendez wraps Neurological: No Focal Motor or Sensory Deficit Psych/Mental Status: Appropriate, Normal Affect 06/26/18 06:10: Magnesium 3.1 H 06/27/18 06:38: Sodium 142, Potassium 4.7, Chloride 104, Carbon Dioxide 31.0, Anion Gap 7, BUN 70 H, Creatinine 1.91 H, Est GFR (MDRD) Af Amer 33 L, Est GFR (MDRD) Non-Af 27 L, BUN/Creatinine Ratio 36.6 H, Glucose 92, Calcium 8.6 06/27/18 06:38: PT 22.9 H, INR 2.0 Rhythm: Atrial fibrillation Medical Necessity - Tobacco Use Smoking Status: Never smoker Assessment/Plan 1. CAD status post PCI status post CABG At the present time the patient appears to be without any acute symptoms with respect to her underlying CAD and/or graft vessel status. Ideally she would continue medical management with a combination of aspirin, nitrates as needed, possibly beta-blockers, afterload reducing agents as deemed appropriate, and lipid-lowering therapy. However the patient states she has intolerances to many medications and thus cannot be on all of these medications. The patient's left ventricle is been reassessed recently. Her overall LV wall motion and systolic function appear to be preserved. If the patient developed any concerning symptoms related to her underlying CAD status then she may need to be considered for further noninvasive and/or invasive evaluation. However based upon her elevated creatinine level and her previous history of transient dialysis prior to proceeding to any invasive evaluation involving IV contrast to be reasonable to consider a noninvasive study such as a parmacologic stress nuclear imaging study to evaluate whether or not the patient had significant stress-induced myocardial ischemia warranting further invasive evaluation and care. 2. Mitral valve disorder/stenosis status post mitral valve replacement-bioprosthetic The patient has been followed for her mitral valve disorder status post a mitral valve replacement with noninvasive studies/echocardiographic studies. Overall her mitral valve apparatus has remained stable without significant changes. At the present time she will need to continue to be followed by history, exam, and echocardiogram. She should continue AHA antibiotic prophylaxis. 3. Paroxysmal atrial fibrillation status post surgical based Maze procedure and left atrial appendage ligation Her diltiazem frequency will be increased to every 6 hours. If she tolerates this without obvious adverse events including bradycardia dysrhythmias, then perhaps she can be changed to a sustained release formulation with advancement of dose and frequency as tolerated. She has remained on low-dose amiodarone therapy and attempt to maintain her cardiac rhythm. She is also remained on anticoagulant therapy which is being adjusted based upon interaction with her recent antibiotic use and corticosteroid use. If the patient does not return to sinus rhythm then she will need to be considered for continued rate control therapy along with her antiarrhythmic therapy and anticoagulant therapy. If over time she is not able to maintain sinus rhythm that she may no longer need her antiarrhythmic therapy. 4. Chronic diastolic mediated CHF The patient appears to have overall preserved LV systolic function. Based upon her recent echocardiogram her diastolic parameters were considered indeterminate. However in the past she has been considered to have a chronic diastolic mediated CHF. At the present time with respect to this issue she will need continued medical management to maintain control of her blood pressure and her volume status. 5. Pulmonary hypertension Has severe pulmonary hypertension. Her pulmonary pressures were markedly elevated prior to her surgery and appear to remain elevated since her surgery. Certainly this can have an effect with respect to her symptoms and with respect to the possibility of cor pulmonale and right heart failure contributing to her lower extremity edema. At the present time she will need continued combined medical management of her multiple medical issues. She may need to be considered for referral to a tertiary care center for further pulmonary hypertension evaluation and whether or not she would be a candidate for aggressive pulmonary hypertension vasodilator therapy. 6. Hyperlipidemia The patient has a history of hyperlipidemia. She is not on lipid-lowering therapy at this time based upon her report of intolerance. 7. Hypertension The patient will need to continue medical management as deemed appropriate. However she does state she is intolerant to many medications used to treat hypertension. 8. Diabetes mellitus The patient will continue under the care of internal medicine. 9. Renal insufficiency The patient's creatinine level is fluctuated possibly secondary to her recent volume shifts from her medical management. Her creatinine has decreased somewhat. Her medications will need to be adjusted as deemed appropriate. As noted above the patient states she was on transient dialysis in the past. She states she wants to do everything she can to avoid that again in the future. 10. Lower extremity peripheral pitting edema Again this may be secondary to concerns of her pulmonary hypertension with possible cor pulmonale and right heart failure. At the present time her therapy would include medication adjustment with diuretic therapy as well as local therapy which may include Mendez wraps. Comment: The patient's case was discussed and reviewed with the patient. This note was generated with [employer] dictation software. It may contain incorrect words, spelling, and punctuation that were not noted in checking the note before signing.
--- NOTE | 2018-06-27 14:07 | PCM.PROGNOTE ---
<Sathish Fregoso - Last Filed: 06/27/18 14:07> Patient Problems: Active and Suspected Problems (Last Reviewed 06/22/18 @ 10:37 by JOSE ANGEL Solorio) COPD exacerbation (Acute) Acute on chronic combined systolic and diastolic CHF, NYHA class 2 (Acute) Subjective: Overall pt improved. SOB improved. Pt has not ambulated yet. LE edema significantly improved. Cough less frequent. Afib with RVR has improved. Currently no palp. Some LH when standing, positive orthos. I advised behavioral modification. - Physical Exam General: Alert, Oriented x3, Cooperative HEENT: Atraumatic, PERRLA, EOMI, Normocephalic Neck: Supple, No JVD, Negative Carotid Bruits Lungs: Clear to auscultation, Normal air movement Cardiovascular: Regular rate, No murmurs Abdomen: Bowel Sounds Present, Soft, Non Tender Extremities: No edema, Capillary Refill Less than 3 Seconds Skin: No rashes, No breakdown Musculoskeletal: No Tenderness to Palpation of Joints or Extremities Neurological: Cranial nerves II-XII grossly intact Psych/Mental Status: Normal Affect, Appropriate, Alert and oriented to time, place, person, mood and affect Vital Signs Temp Pulse Resp BP Pulse Ox 97.8 F 114 H 18 142/78 H 95 06/27/18 09:17 06/27/18 13:53 06/27/18 13:53 06/27/18 09:19 06/27/18 13:53 Oxygen Flow Rate (L/min) 2.5 Oxygen Delivery Method Room Air Weight: 177 lb 0.499 oz Body Mass Index (BMI) 31.3 Finger Stick Blood Glucose 257 Orthostatic Vital Signs Start: 06/27/18 09:19 Freq: q24h Status: Active Protocol: Activity Type Activity Date Activity User E-Sign Co-Sign Detail Recorded Client Recorded Date Recorded By Document 06/27/18 09:19 AMG [id number] 06/27/18 09:20 AMG 06/27/18 09:19 Orthostatic Vitals Standing -Blood Pressure (90/60-120/80) 122/64 H -Extremity Use Right Arm -Pulse Rate (60-100) 101 H Sitting -Blood Pressure (90/60-120/80) 122/75 H -Extremity Use Right Arm -Pulse Rate (60-100) 98 Lying -Blood Pressure (90/60-120/80) 142/78 H -Extremity Use Right Arm -Pulse Rate (60-100) 96 Intake and Output for Last 24 Hours 06/25/18 06/26/18 06/27/18 23:59 23:59 23:59 Intake Total 1340 / 1340 1200 / 1200 1060 / 1060 Output Total 3000 / 3000 3600 / 3600 1600 / 1600 Balance -1660 / -1660 -2400 / -2400 -540 / -540 Laboratory Tests Past 24 Hrs 06/27/18 06/27/18 06:38 06:38 PT 22.9 H INR 2.0 Sodium 142 Potassium 4.7 Chloride 104 Carbon Dioxide 31.0 Anion Gap 7 BUN 70 H Creatinine 1.91 H Estim Creat Clear Calc 19.51 Est GFR (MDRD) Af Amer 33 L Est GFR (MDRD) Non-Af 27 L BUN/Creatinine Ratio 36.6 H Glucose 92 Calcium 8.6 POC Glucose 06/27/18 06/27/18 06/26/18 11:40 06:38 21:33 POC Glucose 171 H 104 208 H 06/26/18 16:53 POC Glucose 92 Medical Necessity - Tobacco Use Smoking Status: Never smoker Assessment/Plan All Active Problems (Last Reviewed 06/22/18 @ 10:37 by Vicky Arzate, CIELO-C) COPD exacerbation (Acute) Acute on chronic combined systolic and diastolic CHF, NYHA class 2 (Acute) Subdural bleeding (Acute) Mitral stenosis (Acute) Encounter for long-term current use of high risk medication (Acute) Dermatitis of lower extremity (Acute) Syncope (Acute) Edema of both legs (Acute) Type 2 diabetes mellitus without complications (Acute) Syncope (Acute) Possible TIA/stroke (Acute) Hemorrhagic stroke (Resolved) UTI (urinary tract infection) (Resolved) 1. Acute hypoxic respiratory failure 2/2 presumed COPD exacerbation and diastolic CHF exacerbation - complicated by moderate pulmonary htn. Echo EF 50%, PASP severely elevated. Lasix was decreased to daily yesterday given worsening renal function. -No COPD or underlying lung disease per pulm. -Significantly improved. Will need to ambulate in haji with pulse ox prior to dc. -may need eval at tertiary center for pulm htn. No plan for right heart cath here. -dc doxy (completed 5 days abx therapy). 2. PAF - Cardizem added, continue low dose amio. Rate improving but still not well controlled. She has had prior maze procedure. Continue coumadin. 3. CKD4 - stable. 4.Hypothyroid - continue synthroid 5. Bioprosthetic mitral valve - stable per cardiology. 6. Orthostatic hypotension - behavioral modification, hopefully this will improve with better rate control. Other Chronic issues stable DVT ppx: Coumadin DC planning: still severely wheezy, SOB. Consult cardiology. PTOT. This patient was seen by Sathish Fregoso PA-C under the supervision of Doctor Nguyen. <Fredi Cedillo F - Last Filed: 06/27/18 17:16> - Physical Exam Vital Signs Temp Pulse Resp BP Pulse Ox 97.8 F 107 H 18 141/80 H 94 06/27/18 15:16 06/27/18 15:17 06/27/18 15:16 06/27/18 15:16 06/27/18 15:16 Oxygen Flow Rate (L/min) 2.5 Oxygen Delivery Method Room Air Weight: 177 lb 0.499 oz Body Mass Index (BMI) 31.3 Finger Stick Blood Glucose 257 Orthostatic Vital Signs Start: 06/27/18 09:19 Freq: q24h Status: Active Protocol: Activity Type Activity Date Activity User E-Sign Co-Sign Detail Recorded Client Recorded Date Recorded By Document 06/27/18 09:19 AMG [id number] 06/27/18 09:20 AMG 06/27/18 09:19 Orthostatic Vitals Standing -Blood Pressure (90/60-120/80) 122/64 H -Extremity Use Right Arm -Pulse Rate (60-100) 101 H Sitting -Blood Pressure (90/60-120/80) 122/75 H -Extremity Use Right Arm -Pulse Rate (60-100) 98 Lying -Blood Pressure (90/60-120/80) 142/78 H -Extremity Use Right Arm -Pulse Rate (60-100) 96 Intake and Output for Last 24 Hours 06/25/18 06/26/18 06/27/18 23:59 23:59 23:59 Intake Total 1340 / 1340 1200 / 1200 1060 / 1060 Output Total 3000 / 3000 3600 / 3600 1600 / 1600 Balance -1660 / -1660 -2400 / -2400 -540 / -540 Laboratory Tests Past 24 Hrs 06/27/18 06/27/18 06:38 06:38 PT 22.9 H INR 2.0 Sodium 142 Potassium 4.7 Chloride 104 Carbon Dioxide 31.0 Anion Gap 7 BUN 70 H Creatinine 1.91 H Estim Creat Clear Calc 19.51 Est GFR (MDRD) Af Amer 33 L Est GFR (MDRD) Non-Af 27 L BUN/Creatinine Ratio 36.6 H Glucose 92 Calcium 8.6 POC Glucose 06/27/18 06/27/18 06/27/18 16:37 11:40 06:38 POC Glucose 52 L 171 H 104 06/26/18 21:33 POC Glucose 208 H Code Visit Addendum: Dr. Cedillo I personally examined the patient and reviewed the chart. I agree with the above. 78-year-old female with history of chronic combined heart failure and mitral valve replacement 2014 with a bioprosthetic valve, coronary artery disease, presenting with shortness of breath that she has been having for the last month or so she has been on multiple rounds of steroids and antibiotics. On presentation she was treated both as a COPD exacerbation and heart failure, with Lasix twice daily, and IV steroids and doxycycline. Pulmonology was consulted and felt most of her disease process was related to her cardiac function and during her course here she is gone into A. fib with RVR and was started on Cardizem 30 mg 4 times daily. She is also on amiodarone for rhythm control, which there is a question as to whether or not the amiodarone could be leading to pulmonary toxicity. As discussed with cardiology if she remains in rate controlled A. fib with the Cardizem is asymptomatic in the amiodarone can be discontinued. For now she has been reduced and her Lasix dosage to 40 mg daily she is continuing on breathing treatments and will likely need an nebulizer to go home with on discharge as well as this steroids daily. She will need both cardiology and pulmonology follow-up as an outpatient. Inpatient E&M: [id number] Subs Hosp L2
--- NOTE | 2018-06-27 14:33 | NURSING ---
78 y/o F A&O x 3 to person, place, and time. Calm and cooperative with care. Pt requested to ambulate halls, notified RN. Pt ambulated >50 ft and tolerated well with 2 sitting breaks. Pt with 2-person min assist, standby assist with walker and wheelchair follow. Pt reported blurry vision and light headedness, reported dizziness and vision improved after sitting and improved with standing break. Pt O2 stable throughout ambulation 96% RA. VS post-ambulation HR 110, BP 150/87, SpO2 96%. Pt currently sitting in chair, able to make needs known. All current needs met, call light within reach. JANEE Hannah
--- NOTE | 2018-06-27 16:21 | NURSING ---
Student nurse charting reviewed and appropriate.
[2018-06-27 17:11] LABS: Bedside Glucose 52 mg/dL (70-110)
[2018-06-27] MEDS: Insulin Lispro 100 UNIT/ML INSULN.PEN 20 UNIT SC (18:04)
[2018-06-27 18:11] LABS: Bedside Glucose 160 mg/dL (70-110)
[2018-06-27] MEDS: 0.9% NaCl Peripheral Flush Adult/Peds IV (20:52)
[2018-06-27] MEDS: Aspirin E.C. 81 MG Tablet PO (20:52)
[2018-06-27 22:06] LABS: Bedside Glucose 246 mg/dL (70-110)
[2018-06-28] VITALS (12 sets, daily range): BP systolic 128–151; BP diastolic 74–92; PULSE 90–125; RESP 16–18; TEMP 36.4–36.9; O2SAT 94–99
[2018-06-28] MEDS: dilTIAZem 30 MG Tablet PO (05:43)
[2018-06-28] MEDS: Levothyroxine 75 MCG Tablet PO (05:43)
[2018-06-28 05:56] LABS: International Normalized Ratio 1.9; Prothrombin Time (Protime)PT. 21.9 SECONDS (11.7-14.9)
[2018-06-28 06:03] LABS: Anion Gap 10 (5-15); BUN 71 mg/dL (7-18); Calcium,Total 8.3 mg/dL (8.5-10.1); Chloride 102 mmol/L (98-107); Creatinine, Serum 1.87 mg/dL (0.55-1.02); EST Glomerular Filtration Rate 28 mL/min (>60); Est Glom Filt Rate - Afr Amer 34 mL/min (>60); Estimated Creatinine Clearance 19.93 ml/min; Glucose 191 mg/dL (74-106); Potassium 4.9 mmol/L (3.5-5.1); Sodium Level 139 mmol/L (136-145)
[2018-06-28 07:11] LABS: Bedside Glucose 201 mg/dL (70-110)
[2018-06-28] MEDS: Insulin Lispro 100 UNIT/ML INSULN.PEN 22 UNIT SC ×2 (07:38→12:36)
[2018-06-28] MEDS: Ipratropium/Albuterol Sulfate 3 ML AMPUL.NEB INHALATION ×2 (08:09→15:48)
--- NOTE | 2018-06-28 08:19 | PCM.PROGNOTE ---
Subjective: The patient was seen and examined at the bedside this morning. Events from the last 24 hours have been reviewed. The patient is currently afebrile, hemodynamically stable and maintaining appropriate oxygen saturations on room air. The patient was documented to be overall net -2 L yesterday. She is now overall net -5.3 L for the admission. She is sitting in her bedside recliner this morning. She is concerned about the use of diuretics in the setting of her chronic renal insufficiency. Objective: The patient's most recent lab work, culture data and imaging studies have all been personally reviewed. Surface echocardiogram revealed normal LV size and function with an ejection fraction of 65%. Diastolic function was indeterminate. Right ventricular systolic pressure was estimated to be [address] completed on June 26 revealed evidence of mediastinal adenopathy, decreased from 2014. - Physical Exam General: Alert, Cooperative, No apparent distress HEENT: Atraumatic, PERRLA, Normocephalic Oral: No Gingival or Mucosal Lesions/ Ulcerations Neck: Supple, No Nodes, Trachea Midline Lungs: No rhonchi, No wheeze, No rales, Diminished Cardiovascular: Normal S1, Normal S2, Irregular Rate, Murmur, Tachycardic Abdomen: Bowel Sounds Present, Soft, Non Tender, Obese Extremities: No clubbing, No cyanosis, Edema Skin: No rashes Musculoskeletal: No Tenderness to Palpation of Joints or Extremities, No Muscle Wasting Lymphatic: No Cervical, Supraclavicular, or Inguinal Adenopathy Neurological: Cranial nerves II-XII grossly intact, Neuro grossly intact Psych/Mental Status: Alert and oriented to time, place, person, mood and affect Vital Signs Temp Pulse Resp BP Pulse Ox 36.9 C 123 H 18 148/86 H 98 06/28/18 05:36 06/28/18 07:05 06/28/18 05:36 06/28/18 05:37 06/28/18 05:36 Oxygen Flow Rate (L/min) 2.5 Oxygen Delivery Method Room Air Weight: 176 lb 2.389 oz Body Mass Index (BMI) 31.3 Finger Stick Blood Glucose 257 Orthostatic Vital Signs Start: 06/27/18 09:19 Freq: q24h Status: Active Protocol: Activity Type Activity Date Activity User E-Sign Co-Sign Detail Recorded Client Recorded Date Recorded By Document 06/28/18 05:37 [place] [id number] 06/28/18 05:41 [place] 06/28/18 05:37 Orthostatic Vitals Standing -Blood Pressure (90/60-120/80) 130/74 H -Extremity Use Right Arm -Pulse Rate (60-100) 110 H Sitting -Blood Pressure (90/60-120/80) 146/86 H -Extremity Use Right Arm -Pulse Rate (60-100) 108 H Lying -Blood Pressure (90/60-120/80) 148/86 H -Extremity Use Right Arm -Pulse Rate (60-100) 96 Intake and Output for Last 24 Hours 06/26/18 06/27/18 06/28/18 23:59 23:59 23:59 Intake Total 1200 / 1200 1900 / 1900 200 / 200 Output Total 3600 / 3600 3950 / 3950 700 / 700 Balance -2400 / -2400 -2050 / -2050 -500 / -500 Laboratory Tests Past 24 Hrs 06/28/18 06/28/18 05:25 05:25 PT 21.9 H INR 1.9 Sodium 139 Potassium 4.9 Chloride 102 Carbon Dioxide 27.0 Anion Gap 10 BUN 71 H Creatinine 1.87 H Estim Creat Clear Calc 19.93 Est GFR (MDRD) Af Amer 34 L Est GFR (MDRD) Non-Af 28 L BUN/Creatinine Ratio 38.0 H Glucose 191 H Calcium 8.3 L POC Glucose 06/28/18 06/27/18 06/27/18 07:01 20:48 18:03 POC Glucose 201 H 246 H 160 H 06/27/18 06/27/18 16:37 11:40 POC Glucose 52 L 171 H Clinical Impression(s) from Imaging Studies Chest X-Ray 06/22/18 11:55 IMPRESSION: Mild COPD. No acute findings. Electronically Signed: Lionel Monroy DO at 12:19 EST Tel , Service support , Chest CT 06/25/18 15:19 IMPRESSION: Lungs are adequately inflated and clear. Slight decrease in size of numerous mediastinal lymph nodes as noted in 2014. Cardiomegaly with median sternotomy wires Electronically Signed: Lionel Monroy DO at 9:46 EST Tel , Service support , Medical Necessity - Tobacco Use Smoking Status: Never smoker Assessment/Plan All Active Problems (Last Reviewed 06/22/18 @ 10:37 by Vicky Arzate, CIELO-C) COPD exacerbation (Acute) Acute on chronic combined systolic and diastolic CHF, NYHA class 2 (Acute) Subdural bleeding (Acute) Mitral stenosis (Acute) Encounter for long-term current use of high risk medication (Acute) Dermatitis of lower extremity (Acute) Syncope (Acute) Edema of both legs (Acute) Type 2 diabetes mellitus without complications (Acute) Syncope (Acute) Possible TIA/stroke (Acute) Hemorrhagic stroke (Resolved) UTI (urinary tract infection) (Resolved) RECOMMENDATIONS: 1. Continue Lasix as ordered. 2. Recommend right heart catheterization once the patient is euvolemic. 3. Wean prednisone over 12-15 days. 4. Continue Coumadin. 5. Perform walking oximetry study prior to consideration for discharge from the hospital. 6. Close outpatient pulmonary follow-up is warranted. IMPRESSIONS: 1. Acute hypoxic respiratory insufficiency secondary to decompensated heart failure with preserved ejection fraction/severe pulmonary hypertension The patient treated with multiple rounds of prednisone in the past with no improvement in previous pulmonary function test do not show obstructive lung disease. Patient does have an extensive history of cardiac involvement including a mitral valve repair. Patient's echocardiogram does show an elevation of pulmonary artery pressure suggesting cor pulmonale. Patient would need a right heart catheterization for quantification and clarification of pulmonary artery pressures. Cardiology has evaluated the patient. Right heart catheterization would be required prior to any tertiary referral for vasoactive medications for pulmonary hypertension. In addition, the patient would also need to undergo a secondary workup for pulmonary hypertension, all of which can be completed on an outpatient basis. Continue diuresis as tolerated by renal function. 2. Paroxysmal atrial fibrillation Continue medical management per cardiology recommendations. 3. Hypothyroidism/obesity/advanced age/history of CVA/depression/diabetes Complicates care, management, recovery and prognosis. Okay to continue home medications from my perspective. This note was generated with [email or web address] software. It may contain incorrect words, spelling, and punctuation that were not noted in checking the note before signing. Code Visit Inpatient E&M: 96450 Subs Hosp L2
--- NOTE | 2018-06-28 08:23 | PN_ITS ---
Subjective: The patient was seen and examined at the bedside this morning. Events from the last 24 hours have been reviewed. The patient is currently afebrile, hemodynamically stable and maintaining appropriate oxygen saturations on room air. The patient was documented to be overall net -2 L yesterday. She is now overall net -5.3 L for the admission. She is sitting in her bedside recliner this morning. She is concerned about the use of diuretics in the setting of her chronic renal insufficiency. Objective: The patient's most recent lab work, culture data and imaging studies have all been personally reviewed. Surface echocardiogram revealed normal LV size and function with an ejection fraction of 65%. Diastolic function was indeterminate. Right ventricular systolic pressure was estimated to be [address] completed on June 26 revealed evidence of mediastinal adenopathy, decreased from 2014. - Physical Exam General: Alert, Cooperative, No apparent distress HEENT: Atraumatic, PERRLA, Normocephalic Oral: No Gingival or Mucosal Lesions/ Ulcerations Neck: Supple, No Nodes, Trachea Midline Lungs: No rhonchi, No wheeze, No rales, Diminished Cardiovascular: Normal S1, Normal S2, Irregular Rate, Murmur, Tachycardic Abdomen: Bowel Sounds Present, Soft, Non Tender, Obese Extremities: No clubbing, No cyanosis, Edema Skin: No rashes Musculoskeletal: No Tenderness to Palpation of Joints or Extremities, No Muscle Wasting Lymphatic: No Cervical, Supraclavicular, or Inguinal Adenopathy Neurological: Cranial nerves II-XII grossly intact, Neuro grossly intact Psych/Mental Status: Alert and oriented to time, place, person, mood and affect Vital Signs Temp Pulse Resp BP Pulse Ox 36.9 C 123 H 18 148/86 H 98 06/28/18 05:36 06/28/18 07:05 06/28/18 05:36 06/28/18 05:37 06/28/18 05:36 Oxygen Flow Rate (L/min) 2.5 Oxygen Delivery Method Room Air Weight: 176 lb 2.389 oz Body Mass Index (BMI) 31.3 Finger Stick Blood Glucose 257 Orthostatic Vital Signs Start: 06/27/18 09:19 Freq: q24h Status: Active Protocol: Activity Type Activity Date Activity User E-Sign Co-Sign Detail Recorded Client Recorded Date Recorded By Document 06/28/18 05:37 [place] [id number] 06/28/18 05:41 [place] 06/28/18 05:37 Orthostatic Vitals Standing -Blood Pressure (90/60-120/80) 130/74 H -Extremity Use Right Arm -Pulse Rate (60-100) 110 H Sitting -Blood Pressure (90/60-120/80) 146/86 H -Extremity Use Right Arm -Pulse Rate (60-100) 108 H Lying -Blood Pressure (90/60-120/80) 148/86 H -Extremity Use Right Arm -Pulse Rate (60-100) 96 Intake and Output for Last 24 Hours 06/26/18 06/27/18 06/28/18 23:59 23:59 23:59 Intake Total 1200 / 1200 1900 / 1900 200 / 200 Output Total 3600 / 3600 3950 / 3950 700 / 700 Balance -2400 / -2400 -2050 / -2050 -500 / -500 Laboratory Tests Past 24 Hrs 06/28/18 06/28/18 05:25 05:25 PT 21.9 H INR 1.9 Sodium 139 Potassium 4.9 Chloride 102 Carbon Dioxide 27.0 Anion Gap 10 BUN 71 H Creatinine 1.87 H Estim Creat Clear Calc 19.93 Est GFR (MDRD) Af Amer 34 L Est GFR (MDRD) Non-Af 28 L BUN/Creatinine Ratio 38.0 H Glucose 191 H Calcium 8.3 L POC Glucose 06/28/18 06/27/18 06/27/18 07:01 20:48 18:03 POC Glucose 201 H 246 H 160 H 06/27/18 06/27/18 16:37 11:40 POC Glucose 52 L 171 H Clinical Impression(s) from Imaging Studies Chest X-Ray 06/22/18 11:55 IMPRESSION: Mild COPD. No acute findings. Electronically Signed: Lionel Monroy DO at 12:19 EST Tel , Service support , Chest CT 06/25/18 15:19 IMPRESSION: Lungs are adequately inflated and clear. Slight decrease in size of numerous mediastinal lymph nodes as noted in 2014. Cardiomegaly with median sternotomy wires Electronically Signed: Lionel Monroy DO at 9:46 EST Tel , Service support , Medical Necessity - Tobacco Use Smoking Status: Never smoker Assessment/Plan All Active Problems (Last Reviewed 06/22/18 @ 10:37 by Vicky Arzate, CIELO-C) COPD exacerbation (Acute) Acute on chronic combined systolic and diastolic CHF, NYHA class 2 (Acute) Subdural bleeding (Acute) Mitral stenosis (Acute) Encounter for long-term current use of high risk medication (Acute) Dermatitis of lower extremity (Acute) Syncope (Acute) Edema of both legs (Acute) Type 2 diabetes mellitus without complications (Acute) Syncope (Acute) Possible TIA/stroke (Acute) Hemorrhagic stroke (Resolved) UTI (urinary tract infection) (Resolved) RECOMMENDATIONS: 1. Continue Lasix as ordered. 2. Recommend right heart catheterization once the patient is euvolemic. 3. Wean prednisone over 12-15 days. 4. Continue Coumadin. 5. Perform walking oximetry study prior to consideration for discharge from the hospital. 6. Close outpatient pulmonary follow-up is warranted. IMPRESSIONS: 1. Acute hypoxic respiratory insufficiency secondary to decompensated heart failure with preserved ejection fraction/severe pulmonary hypertension The patient treated with multiple rounds of prednisone in the past with no improvement in previous pulmonary function test do not show obstructive lung disease. Patient does have an extensive history of cardiac involvement including a mitral valve repair. Patient's echocardiogram does show an elevation of pulmonary artery pressure suggesting cor pulmonale. Patient would need a right heart catheterization for quantification and clarification of pulmonary artery pressures. Cardiology has evaluated the patient. Right heart catheterization would be required prior to any tertiary referral for vasoactive medications for pulmonary hypertension. In addition, the patient would also need to undergo a secondary workup for pulmonary hypertension, all of which can be completed on an outpatient basis. Continue diuresis as tolerated by renal function. 2. Paroxysmal atrial fibrillation Continue medical management per cardiology recommendations. 3. Hypothyroidism/obesity/advanced age/history of CVA/depression/diabetes Complicates care, management, recovery and prognosis. Okay to continue home medications from my perspective. This note was generated with [employer] software. It may contain incorrect words, spelling, and punctuation that were not noted in checking the note before signing. Code Visit Inpatient E&M: 16018 Subs Hosp L2
[2018-06-28] MEDS: 0.9% NaCl Peripheral Flush Adult/Peds IV (09:34)
[2018-06-28] MEDS: Multivitamins,Ther W-Minerals Tablet 1 TABLET PO (09:34)
[2018-06-28] MEDS: Furosemide 40 MG/4 ML Vial IV (09:34)
[2018-06-28] MEDS: Amiodarone 200 MG Tablet 100 MG PO (09:34)
[2018-06-28] MEDS: guaiFENesin 1,200 MG Tablet 1200 MG PO (09:34)
[2018-06-28 11:35] LABS: Bedside Glucose 170 mg/dL (70-110)
[2018-06-28] MEDS: dilTIAZem CD 120 MG Capsule PO (12:36)
--- NOTE | 2018-06-28 12:37 | DCINST_ITS ---
- Discharge Diagnoses Current Active Problems: Current Active and Chronic Problems (Last Reviewed 06/22/18 @ 10:37 by JOSE ANGEL Solorio) COPD exacerbation (Acute) Acute on chronic combined systolic and diastolic CHF, NYHA class 2 (Acute) CAD (coronary artery disease) (Chronic) S/P PTCA (percutaneous transluminal coronary angioplasty) (Chronic) S/P CABG x 1 (Chronic) S/P left atrial appendage ligation (Chronic) You will use the following diet at home:: Cardiac Your food should be the consistency of: Regular Your liquids should be the consistency of: Regular/Thin Discharge Activity: Return to Normal Activity Allergies/Adverse Reactions: Allergies dronedarone [From Multaq] Allergy (Severe, Verified 06/22/18 18:31) difficulty breathing dronedarone HCl [From Multaq] Allergy (Verified 06/22/18 10:04) Other unable to breath quinapril [From Accupril] Adverse Reaction (Severe, Verified 06/22/18 10:04) near syncope shellfish derived Adverse Reaction (Severe, Verified 06/22/18 10:04) Causes swelling cortisone Adverse Reaction (Intermediate, Verified 06/22/18 10:04) swelling hydralazine Adverse Reaction (Intermediate, Verified 06/22/18 10:04) weakness Beta-Blockers (Beta-Adrenergic Bloc Adverse Reaction (Verified 06/22/18 10:04) Other WHEEZING, shaking, passes out prednisone Adverse Reaction (Verified 06/22/18 10:04) Swelling CARDURA Allergy (Uncoded 06/22/18 10:04) Other PT NOT SURE- POSSIBLE SWELLING NORVASC Allergy (Uncoded 06/22/18 10:04) Swelling SCALLOPS Allergy (Uncoded 06/22/18 10:04) Swelling SULFA Allergy (Uncoded 06/22/18 10:04) Other SPOTS IN MOUTH/SORE MOUTH ATIVAN Adverse Reaction (Uncoded 06/22/18 10:04) Other HALLUCINATIONS METATOPOLOL TARTATE Adverse Reaction (Uncoded 06/22/18 10:04) Other Medications to take at Discharge Insulin Aspart [Novolog Flexpen] 10 units SC TIDCM 09/20/14 Albuterol Inhaler [Ventolin Hfa] 2 puff INHALATION Q4H PRN PRN #1 inhaler 10/27/14 Calcitriol [Rocaltrol] 0.25 mcg PO MOWEFR 01/16/17 Lisinopril [Zestril] 20 mg PO DAILY 01/16/17 insulin glargine (U-100) 100 unit/mL (3 mL) subcutaneous pen 50 units SC BREAKFAST 07/15/17 potassium chloride ER 10 mEq capsule,extended release 10 meq PO QDAY 11/25/17 Aspirin E.C. [Ecotrin] 81 mg PO QHS 01/07/18 Lecithin 1,200 mg PO QHS 01/08/18 Albuterol Aerosols [Ventolin Aerosols] 3 ml INHALATION BID 06/22/18 Amiodarone HCl 100 mg PO DAILY 06/22/18 Furosemide [Lasix] 40 mg PO BID 06/22/18 Hydrocortisone 1 applic TP DAILY 06/22/18 Levothyroxine Sodium [Synthroid] 75 mcg PO DAILY 06/22/18 Multivit-Min/Iron/Folic/Lutein [Centrum Silver Women Tablet] 1 tab PO DAILY 06/22/18 Warfarin Sodium 3 mg PO SUTUTHSA 06/22/18 Warfarin Sodium 4 mg PO MOWEFR 06/22/18 Primary Care Physician: Jovana Moulton MD [Primary Care Provider] - Please follow up with your Primary Care Physician in: 1-2 weeks Test Results: Test results from this visit will be discussed in further detail at your follow- up appointment, if applicable. Please Follow Up With: Beto Dennis MD When: 2 weeks Proposed Discharge Date: 06/28/18
--- NOTE | 2018-06-28 13:18 | PCM.PN.CARD ---
Subjectve: The patient is awake and alert. She continues to believe her breathing and her lower extremity edema is improved. She has had no other new acute symptoms. Objective: Vital Signs Temp Pulse Resp BP Pulse Ox 97.8 F 106 H 16 142/85 H 94 06/28/18 12:35 06/28/18 12:35 06/28/18 12:35 06/28/18 12:35 06/28/18 12:37 Oxygen Flow Rate (L/min) 2.5 Oxygen Delivery Method Room Air Weight: 176 lb 2.389 oz Body Mass Index (BMI) 31.3 Finger Stick Blood Glucose 257 Orthostatic Vital Signs Start: 06/27/18 09:19 Freq: q24h Status: Active Protocol: Activity Type Activity Date Activity User E-Sign Co-Sign Detail Recorded Client Recorded Date Recorded By Document 06/28/18 05:37 DANIELA [id number] 06/28/18 05:41 [place] 06/28/18 05:37 Orthostatic Vitals Standing -Blood Pressure (90/60-120/80) 130/74 H -Extremity Use Right Arm -Pulse Rate (60-100) 110 H Sitting -Blood Pressure (90/60-120/80) 146/86 H -Extremity Use Right Arm -Pulse Rate (60-100) 108 H Lying -Blood Pressure (90/60-120/80) 148/86 H -Extremity Use Right Arm -Pulse Rate (60-100) 96 Intake and Output for Last 24 Hours 06/26/18 06/27/18 06/28/18 23:59 23:59 23:59 Intake Total 1200 / 1200 1900 / 1900 680 / 680 Output Total 3600 / 3600 3950 / 3950 700 / 700 Balance -2400 / -2400 -2050 / -2050 -20 / -20 General: Awake, Alert, Oriented x 3, Cooperative, No Acute Distress HEENT: Atraumatic, Normocephalic, PERRL, EOMI, Sclera Non Icteric Oral: Moist Mucosa Neck: Supple, Good ROM, No JVD Lungs: Expiratory Wheezes-Dipesh - Improved compared to previous evaluation Cardiovascular: Irregular Rhythm, Normal S1, Normal S2 Murmur Murmur: Grade 2/6, Mid Systolic, LLSB Vascular: No Carotid Bruits Abdomen: Bowel Sounds Present, Soft, Non Tender Extremities: Mild RLE Edema, Mild LLE Edema - Continued bilateral lower extremity Mendez wraps Psych/Mental Status: Appropriate 06/28/18 05:25: PT 21.9 H, INR 1.9 06/28/18 05:25: Sodium 139, Potassium 4.9, Chloride 102, Carbon Dioxide 27.0, Anion Gap 10, BUN 71 H, Creatinine 1.87 H, Est GFR (MDRD) Af Amer 34 L, Est GFR (MDRD) Non-Af 28 L, BUN/Creatinine Ratio 38.0 H, Glucose 191 H, Calcium 8.3 L Rhythm: Atrial fibrillation Medical Necessity - Tobacco Use Smoking Status: Never smoker Assessment/Plan 1. CAD status post PCI status post CABG At the present time the patient appears to be without any acute symptoms with respect to her underlying CAD and/or graft vessel status. Ideally she would continue medical management with a combination of aspirin, nitrates as needed, possibly beta-blockers, afterload reducing agents as deemed appropriate, and lipid-lowering therapy. However the patient states she has intolerances to many medications and thus cannot be on all of these medications. The patient's left ventricle is been reassessed recently. Her overall LV wall motion and systolic function appear to be preserved. If the patient developed any concerning symptoms related to her underlying CAD status then she may need to be considered for further noninvasive and/or invasive evaluation. However based upon her elevated creatinine level and her previous history of transient dialysis prior to proceeding to any invasive evaluation involving IV contrast to be reasonable to consider a noninvasive study such as a parmacologic stress nuclear imaging study to evaluate whether or not the patient had significant stress-induced myocardial ischemia warranting further invasive evaluation and care. 2. Mitral valve disorder/stenosis status post mitral valve replacement-bioprosthetic The patient has been followed for her mitral valve disorder status post a mitral valve replacement with noninvasive studies/echocardiographic studies. Overall her mitral valve apparatus has remained stable without significant changes. At the present time she will need to continue to be followed by history, exam, and echocardiogram. She should continue AHA antibiotic prophylaxis. 3. Paroxysmal atrial fibrillation status post surgical based Maze procedure and left atrial appendage ligation The patient has had recurrent paroxysmal atrial fibrillation this day. She has been treated with low-dose IV diltiazem therapy and low-dose short acting oral diltiazem therapy as she states she cannot tolerate high-dose medications and/or beta-blockers. She has remained on low-dose amiodarone therapy and attempt to maintain her cardiac rhythm. She is also remained on anticoagulant therapy which is being adjusted based upon interaction with her recent antibiotic use and corticosteroid use. As she is tolerated her low-dose short-acting oral diltiazem therapy she will now be transitioned to long-acting oral diltiazem therapy. Her dose can be escalated as tolerated. 4. Chronic diastolic mediated CHF The patient appears to have overall preserved LV systolic function. Based upon her recent echocardiogram her diastolic parameters were considered indeterminate. However in the past she has been considered to have a chronic diastolic mediated CHF. At the present time with respect to this issue she will need continued medical management to maintain control of her blood pressure and her volume status. 5. Pulmonary hypertension Has severe pulmonary hypertension. Her pulmonary pressures were markedly elevated prior to her surgery and appear to remain elevated since her surgery. Certainly this can have an effect with respect to her symptoms and with respect to the possibility of cor pulmonale and right heart failure contributing to her lower extremity edema. At the present time she will need continued combined medical management of her multiple medical issues. She may need to be considered for referral to a tertiary care center for further pulmonary hypertension evaluation and whether or not she would be a candidate for aggressive pulmonary hypertension vasodilator therapy. 6. Hyperlipidemia The patient has a history of hyperlipidemia. She is not on lipid-lowering therapy at this time based upon her report of intolerance. 7. Hypertension The patient will need to continue medical management as deemed appropriate. 8. Diabetes mellitus The patient will continue under the care of internal medicine. 9. Renal insufficiency The patient's creatinine level is fluctuated possibly secondary to her recent volume shifts from her medical management. Her medications will need to be adjusted as deemed appropriate. Her creatinine levels continue to improve. 10. Lower extremity peripheral pitting edema Again this may be secondary to concerns of her pulmonary hypertension with possible cor pulmonale and right heart failure. At the present time her therapy would include medication adjustment with diuretic therapy as well as local therapy which may include Mendez wraps. Overall, at the present time, she does not appear to be symptomatically improved. She will continue medical management with adjustment as deemed appropriate. She will need continued outpatient cardiovascular follow-up with her primary dredge hand Dr. Dennis. Comment: The patient's case was discussed and reviewed with the patient and her [facility] hospitalist team. This note was generated with [employer] software. It may contain incorrect words, spelling, and punctuation that were not noted in checking the note before signing.
--- NOTE | 2018-06-28 14:11 | DS.PCM_ITS ---
<Sathish Fregoso - Last Filed: 06/28/18 14:17> Discharge Date and Diagnosis - Problem List Patient Problems: Active and Suspected Problems (Last Reviewed 06/22/18 @ 10:37 by JOSE ANGEL Solorio) COPD exacerbation (Acute) Acute on chronic combined systolic and diastolic CHF, NYHA class 2 (Acute) Date of Admission: 06/22/18 Date of Discharge: 06/28/18 - Primary Discharge Diagnosis Active and Suspected Problems (Last Reviewed 06/22/18 @ 10:37 by JOSE ANGEL Solorio) Acute on chronic combined systolic and diastolic CHF, NYHA class 2 (Acute) COPD ruled out Severe pulmonary HTN Paroxysmal Afib with RVR CKD4 Hypothyroid Bioprosthetic MV Orthostatic hypotension T2 DM Hx CVA Hypothyroidism - Secondary Discharge Diagnosis Chronic Problems (Last Reviewed 06/22/18 @ 10:37 by JOSE ANGEL Solorio) CAD (coronary artery disease) (Chronic) S/P PTCA (percutaneous transluminal coronary angioplasty) (Chronic) S/P CABG x 1 (Chronic) S/P left atrial appendage ligation (Chronic) Atherosclerosis of coronary artery bypass graft without angina pectoris (Chronic) Postsurgical percutaneous transluminal coronary angioplasty (PTCA) status (Chronic) PTCA of LAD ; Paroxysmal atrial fibrillation (Chronic) Depression (Chronic) retirement (current) use of anticoagulants (Chronic) Bradycardia (Chronic) S/P CABG x 1 (Chronic 09/29/14) 09/29/2014 CABG: SVG to distal LAD Gustonjabier Alexis per Dr. Miller 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 Angela Alexis History of mitral valve replacement with bioprosthetic valve (Chronic 09/29/14) 09/29/2014: MVR with 27 mm Medtronic tisue valve per Dr. Angela Alexis Atrial fibrillation (Chronic) Hyperlipidemia (Chronic) Hypertension (Chronic) resistant HTN Cerebrovascular disease (Chronic) ischemic stroke w hemorrhagic transformation in the setting of coumadin anticoagulation Anemia (Chronic) CRF (chronic renal failure) (Chronic) Anticoagulation goal of INR 2 to 3 (Chronic) Diabetes mellitus type II, uncontrolled (Chronic) Stroke with left visual deficit (Chronic) Chronic diastolic heart failure (Chronic) Pulmonary hypertension (Chronic) MAGALI (obstructive sleep apnea) (Chronic) on CPAP Hospital Course and Treatment Imaging Results: RAD/Chest PA and Lateral IMPRESSION: Mild COPD. No acute findings. CT/Chest without Contrast IMPRESSION: Lungs are adequately inflated and clear. Slight decrease in size of numerous mediastinal lymph nodes as noted in 2015. Cardiomegaly with median sternotomy wires Echo: Interpretation Summary Left ventricular systolic function is normal. The estimated ejection fraction is 65 %. Post operative septal motion. D shaped septum in systole and diastole. The left atrium is mildly enlarged. The right atrium is mildly enlarged. Stable appearing bioprosthetic mitral valve apparatus. Trivial transvalvular insufficiency of the mitral valve. Mild to moderate (1-2+) eccentric tricuspid valve insufficiency. Mild diffuse aortic valve calcification. Trivial aortic valve insufficiency. Mild (1+) pulmonic valve insufficiency. Right ventricular systolic pressure estimated to be 72 mmHg c/w severe pulmonary hypertension. Diastolic function is indeterminate. Consults: Pulmonary - Baljit/Ever Cardiology - Shannan Operations: None Procedures: 2-D Echocardiogram Summary of Care Provided: Hospital Course: The patient is a 78 year old F with a pmhx of PAfib, CVA, DMt2, Severe pulmonary HTN, bioprosthetic MV, combined HF, who presented to the ER with c/o SOB worsening x 3 weeks with increased LE edema. CXR showed COPD, BNP was elevated, EKG showed mild sinus kentrell, and she was hypoxic on RA at 88%, requiring 4lpm NC to maintain good sats. She was admitted with CHF exacerbation and suspected COPD exacerbation, she was placed on tele in the PCU on IV solumedrol, lasix, and PO doxy. She improved slowly, and pulmonary medicine was consulted regarding questionable COPD and her pulmonary HTN. CT chest was obtained and no evidence of COPD was found. Steroids were tapered down. 5 day course of Doxy was completed. Lasix was decreased to 40 IV qd due to renal function worsening and orthostatic hypotension. She continued to improve with regards to LE edema, breathing, and kidney function on lower dose. Pulmonary medicine felt cardiology should evaluate the patient with regards to her pulmonary htn. Cardiology was consulted and an echo was obtained which demonstrated worsening pulmonary htn. Cardiology felt that this could be worked up as an outpatient. She then developed Afib with RVR and she was given IV cardizem, transitioned to oral cardizem successfully. She was discharged home in stable condition on a steroid taper and cardizem, and will need to follow up with cardiology, pulmonology, and her PCP. This patient was seen by Sathish Fregoso PA-C under the supervision of Doctor Nguyen. [] Patient Problems: Active and Suspected Problems (Last Reviewed 06/22/18 @ 10:37 by JOSE ANGEL Solorio) COPD exacerbation (Acute) Acute on chronic combined systolic and diastolic CHF, NYHA class 2 (Acute) - Physical Exam General: Alert, Oriented x3, Cooperative HEENT: Atraumatic, PERRLA, EOMI, Normocephalic Neck: Supple, No JVD, Negative Carotid Bruits Lungs: Clear to auscultation, Normal air movement Cardiovascular: No murmurs, Irregular Rate Abdomen: Bowel Sounds Present, Soft, Non Tender Extremities: No edema, Capillary Refill Less than 3 Seconds Skin: No rashes, No breakdown Musculoskeletal: No Tenderness to Palpation of Joints or Extremities Neurological: Cranial nerves II-XII grossly intact Psych/Mental Status: Normal Affect, Appropriate, Alert and oriented to time, place, person, mood and affect Vital Signs Temp Pulse Resp BP Pulse Ox 97.8 F 106 H 16 142/85 H 94 06/28/18 12:35 06/28/18 12:35 06/28/18 12:35 06/28/18 12:35 06/28/18 12:37 Oxygen Flow Rate (L/min) 2.5 Oxygen Delivery Method Room Air Weight: 176 lb 2.389 oz Body Mass Index (BMI) 31.3 Finger Stick Blood Glucose 257 Orthostatic Vital Signs Start: 06/27/18 09:19 Freq: q24h Status: Active Protocol: Activity Type Activity Date Activity User E-Sign Co-Sign Detail Recorded Client Recorded Date Recorded By Document 06/28/18 05:37 [place] [id number] 06/28/18 05:41 [place] 06/28/18 05:37 Orthostatic Vitals Standing -Blood Pressure (90/60-120/80) 130/74 H -Extremity Use Right Arm -Pulse Rate (60-100) 110 H Sitting -Blood Pressure (90/60-120/80) 146/86 H -Extremity Use Right Arm -Pulse Rate (60-100) 108 H Lying -Blood Pressure (90/60-120/80) 148/86 H -Extremity Use Right Arm -Pulse Rate (60-100) 96 Intake and Output for Last 24 Hours 06/26/18 06/27/18 06/28/18 23:59 23:59 23:59 Intake Total 1200 / 1200 1900 / 1900 680 / 680 Output Total 3600 / 3600 3950 / 3950 700 / 700 Balance -2400 / -2400 -2050 / -2050 -20 / -20 Laboratory Tests Past 24 Hrs 06/28/18 06/28/18 05:25 05:25 PT 21.9 H INR 1.9 Sodium 139 Potassium 4.9 Chloride 102 Carbon Dioxide 27.0 Anion Gap 10 BUN 71 H Creatinine 1.87 H Estim Creat Clear Calc 19.93 Est GFR (MDRD) Af Amer 34 L Est GFR (MDRD) Non-Af 28 L BUN/Creatinine Ratio 38.0 H Glucose 191 H Calcium 8.3 L POC Glucose 06/28/18 06/28/18 06/27/18 11:31 07:01 20:48 POC Glucose 170 H 201 H 246 H 06/27/18 06/27/18 18:03 16:37 POC Glucose 160 H 52 L Discharge Diet: Low fat/ Low Cholesterol, 1800 Calorie Control Diet, 2000 mg Sodium Diet Discharge Activity: Return to Normal Activity Home Medications: Medications to take at Discharge Insulin Aspart [Novolog Flexpen] 10 units SC TIDCM 09/20/14 Albuterol Inhaler [Ventolin Hfa] 2 puff INHALATION Q4H PRN PRN #1 inhaler 10/27/14 Calcitriol [Rocaltrol] 0.25 mcg PO MOWEFR 01/16/17 Lisinopril [Zestril] 20 mg PO DAILY 01/16/17 insulin glargine (U-100) 100 unit/mL (3 mL) subcutaneous pen 50 units SC BREAKFAST 07/15/17 potassium chloride ER 10 mEq capsule,extended release 10 meq PO QDAY 11/25/17 Aspirin E.C. [Ecotrin] 81 mg PO QHS 01/07/18 Lecithin 1,200 mg PO QHS 01/08/18 Albuterol Aerosols [Ventolin Aerosols] 3 ml INHALATION BID 06/22/18 Amiodarone HCl 100 mg PO DAILY 06/22/18 Furosemide [Lasix] 40 mg PO BID 06/22/18 Hydrocortisone 1 applic TP DAILY 06/22/18 Levothyroxine Sodium [Synthroid] 75 mcg PO DAILY 06/22/18 Multivit-Min/Iron/Folic/Lutein [Centrum Silver Women Tablet] 1 tab PO DAILY 06/22/18 Warfarin Sodium 3 mg PO SUTUTHSA 06/22/18 Warfarin Sodium 4 mg PO MOWEFR 06/22/18 Primary Care Physician: Jovana Moulton MD [Primary Care Provider] - Please follow up with your Primary Care Physician in: 1-2 weeks Please Follow Up With: Beto Dennis MD When: 2 weeks Please Follow Up With: Jerzy Smiley MD When: 2-3 weeks Disposition: Home Minutes spent on discharge:: 35 Patient Condition:: Stable Medical Necessity - Tobacco Use Smoking Status: Never smoker Meaningful Use Info Meaningful Use Diagnoses (Choose all that apply): CHF - CHF BETZAIDA/ARB ordered at discharge?: No Reason BETZAIDA/ARB not ordered?: Worsening renal disease Documented LVEF (%): 65 <Fredi Cedillo - Last Filed: 06/28/18 14:32> Discharge Date and Diagnosis - Primary Discharge Diagnosis Active and Suspected Problems (Last Reviewed 06/22/18 @ 10:37 by Vicky franco OPTICAL ENGINEER-C) COPD exacerbation (Acute) Acute on chronic combined systolic and diastolic CHF, NYHA class 2 (Acute) - Secondary Discharge Diagnosis Chronic Problems (Last Reviewed 06/22/18 @ 10:37 by Vicky Arzate NP-C) CAD (coronary artery disease) (Chronic) S/P PTCA (percutaneous transluminal coronary angioplasty) (Chronic) S/P CABG x 1 (Chronic) S/P left atrial appendage ligation (Chronic) Atherosclerosis of coronary artery bypass graft without angina pectoris (Chronic) Postsurgical percutaneous transluminal coronary angioplasty (PTCA) status (Chron ic) PTCA of LAD ; Paroxysmal atrial fibrillation (Chronic) 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 Miller 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 Angela Alexis History of mitral valve replacement with bioprosthetic valve (Chronic 09/29/14) 09/29/2014: MVR with 27 mm Medtronic tisue valve per Dr. Angela Alexis Atrial fibrillation (Chronic) Hyperlipidemia (Chronic) Hypertension (Chronic) resistant HTN Cerebrovascular disease (Chronic) ischemic stroke w hemorrhagic transformation in the setting of coumadin anticoagulation Anemia (Chronic) CRF (chronic renal failure) (Chronic) Anticoagulation goal of INR 2 to 3 (Chronic) Diabetes mellitus type II, uncontrolled (Chronic) Stroke with left visual deficit (Chronic) Chronic diastolic heart failure (Chronic) Pulmonary hypertension (Chronic) MAGALI (obstructive sleep apnea) (Chronic) on CPAP Hospital Course and Treatment Summary of Care Provided: The patient is a 78 year old F [] - Physical Exam Vital Signs Temp Pulse Resp BP Pulse Ox 97.8 F 106 H 16 142/85 H 94 06/28/18 12:35 06/28/18 12:35 06/28/18 12:35 06/28/18 12:35 06/28/18 12:37 Oxygen Flow Rate (L/min) 2.5 Oxygen Delivery Method Room Air Weight: 176 lb 2.389 oz Body Mass Index (BMI) 31.3 Finger Stick Blood Glucose 257 Orthostatic Vital Signs Start: 06/27/18 09:19 Freq: q24h Status: Active Protocol: Activity Type Activity Date Activity User E-Sign Co-Sign Detail Recorded Client Recorded Date Recorded By Document 06/28/18 05:37 WI [id number] 06/28/18 05:41 [place] 06/28/18 05:37 Orthostatic Vitals Standing -Blood Pressure (90/60-120/80) 130/74 H -Extremity Use Right Arm -Pulse Rate (60-100) 110 H Sitting -Blood Pressure (90/60-120/80) 146/86 H -Extremity Use Right Arm -Pulse Rate (60-100) 108 H Lying -Blood Pressure (90/60-120/80) 148/86 H -Extremity Use Right Arm -Pulse Rate (60-100) 96 Intake and Output for Last 24 Hours 06/26/18 06/27/18 06/28/18 23:59 23:59 23:59 Intake Total 1200 / 1200 1900 / 1900 680 / 680 Output Total 3600 / 3600 3950 / 3950 700 / 700 Balance -2400 / -2400 -2050 / -2050 -20 / -20 Laboratory Tests Past 24 Hrs 06/28/18 06/28/18 05:25 05:25 PT 21.9 H INR 1.9 Sodium 139 Potassium 4.9 Chloride 102 Carbon Dioxide 27.0 Anion Gap 10 BUN 71 H Creatinine 1.87 H Estim Creat Clear Calc 19.93 Est GFR (MDRD) Af Amer 34 L Est GFR (MDRD) Non-Af 28 L BUN/Creatinine Ratio 38.0 H Glucose 191 H Calcium 8.3 L POC Glucose 06/28/18 06/28/18 06/27/18 11:31 07:01 20:48 POC Glucose 170 H 201 H 246 H 06/27/18 06/27/18 18:03 16:37 POC Glucose 160 H 52 L Code Visit Addendum: Dr. Cedillo I personally examined the patient and reviewed the chart. I agree with the above. 78-year-old female with a history of chronic combined heart failure and mitral valve replacement 2014 with a bioprosthetic valve, coronary artery disease, presenting with shortness of breath she had been having for the last month or so, she has had multiple rounds of steroids and antibiotics. On presentation she was treated both as a COPD exacerbation and heart failure, with Lasix twice daily, and IV steroids and doxycycline. Pulmonology was consulted and felt most of her disease process was related to her cardiac function and during her course here she went into A. fib with RVR and was started on Cardizem 30 mg 4 times daily. She is also on amiodarone for rhythm control. She is currently tolerating the increased dose of Cardizem was given a dose of 120 mg sustained release at around adverse effects currently. She be discharged today on Cardizem 120 mg daily. As well as her amiodarone, and will have outpatient follow-up with cardiology and pulmonology. Inpatient E&M: 80083 Disch Hosp
[2018-06-28 16:21] LABS: Bedside Glucose 134 mg/dL (70-110)
[2018-06-28] MEDS: Insulin Lispro 100 UNIT/ML INSULN.PEN 20 UNIT SC (17:00)
--- NOTE | 2018-06-29 14:13 | CASEMGMT ---
LINDSEY MONTEJO Discharge Follow-up Phone Call: KELY: Reggie Strata: 4 Call Date: 06/29/18 Discharge Date: 06/28/18 Time of Call: 1400 Duration: 10 minutes ? Admitting Diagnosis: A/C sys and sanchez CHF, COPD exac This LINDSEY MONTEJO contacted pt via telephone in regard to discharge follow-up. Pt states she is feeling ok but is concerned about her HR being 136 this AM. Pt states she has taken her medication and plans to call her doctor this afternoon if her HR does not decline. Reviewed HR in EHR and noted pt was having a HR in the 100's-120's while here. Pt states she they had adjusted her medications at discharge. Pt feels she is getting around ok at home and is not in need of any therapy at this time. She did receive her new nebulizer machine and denies any questions regarding how to use this. Pt states she does have the medication to use with it. Pt states she has a follow-up appointment scheduled with her PCP for Friday and will be making her appointments with Dr. Dennis and Dr. Smiley. Pt requested a return call next week to follow-up on how she is doing. Pt denied any further questions or concerns. Leonard Botello RN
--- NOTE | 2018-07-07 15:03 | CASEMGMT ---
This RN CM attempted to contact pt via telephone as she had requested last week. Voicemail received and message left. Leonard Botello RN
== END 2018-06-28 17:57 | disposition home or self-care (01) | DRG 291 ==
LOC: ED 15:35 → PCU 17:36
PROVIDERS: Hospitalist; Internal Medicine Cardiovascular Disease; Physician Assistant; Admitting Provider Internal Medicine; Emergency Provider Emergency Medicine; Family Provider Internal Medicine; PCP Internal Medicine; Visit Provider Family Medicine
DX: I13.0 Hypertensive heart and chronic kidney disease with heart failure and stage 1 through stage 4 chronic kidney disease, or unspecified chronic kidney disease (principal); I50.43 Acute on chronic combined systolic (congestive) and diastolic (congestive) heart failure; J96.01 Acute respiratory failure with hypoxia; N18.4 Chronic kidney disease, stage 4 (severe); I48.0 Paroxysmal atrial fibrillation; Z23 Encounter for immunization; E03.9 Hypothyroidism, unspecified; E11.22 Type 2 diabetes mellitus with diabetic chronic kidney disease; Z86.73 Personal history of transient ischemic attack (TIA), and cerebral infarction without residual deficits; Z95.3 Presence of xenogenic heart valve; Z95.1 Presence of aortocoronary bypass graft; Z79.4 Long term (current) use of insulin; Z79.01 Long term (current) use of anticoagulants; Z79.899 Other long term (current) drug therapy; Z95.5 Presence of coronary angioplasty implant and graft; E78.5 Hyperlipidemia, unspecified; D63.8 Anemia in other chronic diseases classified elsewhere; G47.33 Obstructive sleep apnea (adult) (pediatric); I25.10 Atherosclerotic heart disease of native coronary artery without angina pectoris; I27.20 Pulmonary hypertension, unspecified; I95.1 Orthostatic hypotension
CPT/HCPCS: 36415; 71046; 71250; 80048; 80061; 81002; 82947; 82962; 83735; 83880; 84443; 84484; 85025; 85610; 87633; 93005; 93306; 94640; 94667; 94668; 97110; 97162; 97166; 99285; 90686; A4216; J1940

== ENCOUNTER → 2018-07-14 12:29 | Outpatient (CLI) | payer MEDICARE, SELFPAY ==
[2018-06-22 18:16] VITALS: BMI 31.3
[2018-07-14 13:15] LABS: Hemoglobin A1c 9.6 % (4.2-6.3)
[2018-07-14 13:21] LABS: Anion Gap 9 (5-15); BUN 34 mg/dL (7-18); BUN/Creat Ratio 19.7 RATIO (10-20); Calcium,Total 8.3 mg/dL (8.5-10.1); Chloride 104 mmol/L (98-107); Creatinine, Serum 1.73 mg/dL (0.55-1.02); EST Glomerular Filtration Rate 30 mL/min (>60); Est Glom Filt Rate - Afr Amer 37 mL/min (>60); Free T3 2.4 pg/mL (2.18-3.98); Glucose 258 mg/dL (74-106); Potassium 4.1 mmol/L (3.5-5.1); Sodium Level 142 mmol/L (136-145); T4 Free Direct 1.22 ng/dL (0.76-1.46); Thyroid Stim Hormone (TSH) 7.22 uIU/mL (0.358-3.74)
[2018-07-14 13:23] LABS: Microalbumin:Creatinine Ratio 198.9 mg/g CRE (<30 mg/g CRE)
== END ==
PROVIDERS: Family Provider Internal Medicine; PCP Internal Medicine; Referring Provider Internal Medicine; Visit Provider Internal Medicine
DX: E11.65 Type 2 diabetes mellitus with hyperglycemia (principal); E11.22 Type 2 diabetes mellitus with diabetic chronic kidney disease; N18.4 Chronic kidney disease, stage 4 (severe); E03.9 Hypothyroidism, unspecified; Z79.4 Long term (current) use of insulin; Z79.899 Other long term (current) drug therapy
CPT/HCPCS: 80048; 82043; 82570; 83036; 84439; 84443; 84481

== ENCOUNTER → 2018-07-22 14:22 | Outpatient (CLI) | payer MEDICARE, SELFPAY ==
[2018-07-16 13:41] VITALS: BMI 31.6
[2018-07-22 14:29] VITALS: BP 139/58; PULSE 58; RESP 18; TEMP 36.1; O2SAT 93; BMI 31.3
[2018-07-22] MEDS: Furosemide 40 MG/4 ML Vial IV (14:49)
== END ==
PROVIDERS: Family Provider Internal Medicine; PCP Internal Medicine; Referring Provider Physician Assistant Medical; Visit Provider Physician Assistant Medical
DX: I50.9 Heart failure, unspecified (principal)
CPT/HCPCS: 96374; A4216; J1940

== ENCOUNTER → 2018-07-23 14:13 | Outpatient (CLI) | payer MEDICARE, SELFPAY ==
[2018-07-16 13:41] VITALS: BMI 31.6
[2018-07-22 14:29] VITALS: BMI 31.3
[2018-07-23 14:27] VITALS: BP 125/59; PULSE 57; RESP 16; TEMP 36.6; O2SAT 93
[2018-07-23] MEDS: Furosemide 40 MG/4 ML Vial IV (14:41)
== END ==
PROVIDERS: Family Provider Internal Medicine; PCP Internal Medicine; Referring Provider Physician Assistant Medical; Visit Provider Physician Assistant Medical
DX: I50.9 Heart failure, unspecified (principal)
CPT/HCPCS: 96374; A4216; J1940

== ENCOUNTER → 2018-07-24 14:26 | Outpatient (CLI) | payer MEDICARE, SELFPAY ==
[2018-07-16 13:41] VITALS: BMI 31.6
[2018-07-22 14:29] VITALS: BMI 31.3
[2018-07-24 14:36] VITALS: BP 132/52; PULSE 62; RESP 18; TEMP 36.7; O2SAT 94
[2018-07-24] MEDS: Furosemide 40 MG/4 ML Vial IV (14:40)
[2018-07-24 14:55] LABS: Anion Gap 7 (5-15); BUN 43 mg/dL (7-18); BUN/Creat Ratio 18.9 RATIO (10-20); Calcium,Total 8.3 mg/dL (8.5-10.1); Chloride 104 mmol/L (98-107); Creatinine, Serum 2.27 mg/dL (0.55-1.02); EST Glomerular Filtration Rate 22 mL/min (>60); Est Glom Filt Rate - Afr Amer 27 mL/min (>60); Glucose 267 mg/dL (74-106); Potassium 4.3 mmol/L (3.5-5.1); Sodium Level 139 mmol/L (136-145)
== END ==
PROVIDERS: Family Provider Internal Medicine; PCP Internal Medicine; Referring Provider Physician Assistant Medical; Visit Provider Physician Assistant Medical
DX: I50.9 Heart failure, unspecified (principal)
CPT/HCPCS: 96374; 80048; A4216; J1940

== ENCOUNTER 2018-07-27 12:39 | Outpatient (RCR) | payer MEDICARE, SELFPAY ==
[2018-06-22 18:16] VITALS: BMI 31.3
[2018-07-27 11:40] VITALS: BMI 31.3
[2018-07-27 13:37] LABS: Prothrombin Time (Protime)PT. 35.9 SECONDS (11.7-14.9)
[2018-07-27 13:48] LABS: Anion Gap 9 (5-15); BUN 48 mg/dL (7-18); BUN/Creat Ratio 19.5 RATIO (10-20); Calcium,Total 8.8 mg/dL (8.5-10.1); Chloride 98 mmol/L (98-107); Creatinine, Serum 2.46 mg/dL (0.55-1.02); EST Glomerular Filtration Rate 20 mL/min (>60); Est Glom Filt Rate - Afr Amer 25 mL/min (>60); Glucose 117 mg/dL (74-106); Potassium 4.6 mmol/L (3.5-5.1); Sodium Level 140 mmol/L (136-145)
[2018-07-27 13:53] LABS: International Normalized Ratio 3.6
== END 2018-07-27 13:00 | disposition home or self-care (01) ==
LOC: LAB 12:39
PROVIDERS: Physician Assistant Medical; Family Provider Internal Medicine; PCP Internal Medicine; Referring Provider Internal Medicine Cardiovascular Disease; Visit Provider Internal Medicine Cardiovascular Disease
DX: J44.1 Chronic obstructive pulmonary disease with (acute) exacerbation (principal); I48.91 Unspecified atrial fibrillation; Z79.01 Long term (current) use of anticoagulants
CPT/HCPCS: 36415; 80048; 85610

== ENCOUNTER 2018-08-03 10:51 | Emergency (ER) | payer MEDICARE, SELFPAY ==
[2018-08-03 10:52] VITALS: BP 145/68; PULSE 60; RESP 15; TEMP 36.1; O2SAT 97; BMI 29.7
--- NOTE | 2018-08-03 10:56 | RAD_ITS ---
STUDY: X-RAY - LEFT FOOT CLINICAL: Female, 78 years old. Dorsal soft tissue swelling following injury. TECHNIQUE: 3 view(s) of the foot. COMPARISON: None. FINDINGS: There is an enthesophyte involving the posterior superior calcaneus at the site of insertion of the Achilles tendon. Small plantar spur. Normal visualized subtalar, talonavicular, calcaneocuboid, tarsal and tarsometatarsal articulations. Normal metatarsi. Normal metatarsophalangeal joint of the great toe. Normal tibial and fibular sesamoid bones. Normal interphalangeal joint of the great toe. Normal phalanges of the great toe. Normal second through fifth metatarsophalangeal joints. Normal interphalangeal joints and phalanges of the lesser toes. There is non-specific dorsal soft tissue swelling of the foot. RAD/Foot min 3 Views IMPRESSION: Calcaneal spurs. Dorsal soft tissue swelling. No fracture is seen. Electronically Signed: Pierre Hua MD at 11:24 EST Tel [phone], Service support ,
[2018-08-03 12:06] LABS: Absolute Lymphocyte Count 1.25 X10^3/ul (0.83-4.51); Absolute Neutrophil Count 12.7 X10^3/uL (2.0-7.7); Basophil# 0.01 X10^3/uL; Basophil% 0.1 % (0-1); Eosinophil# 0.17 X10^3/uL; Eosinophils% 1.1 % (0-5); Hematocrit 39.6 % (37-47); Hemoglobin 13.1 g/dl (12.0-15.0); Lymphocyte # 1.25 X10^3/ul (4.0); Lymphocyte % 8.3 % (19-41); Mean Corp Hgb Conc 33.1 g/gl (32-36); Mean Corpuscular Hgb 26.4 pg (27.0-32.0); Mean Corpuscular Volume 79.7 fL (81-99); Mean Platelet Vol. 9.9 fl (6.2-12.0); Monocyte# 0.77 X10^3/uL; Monocyte% 5.1 % (0-10); Neutrophil # 12.72 X10^3/uL (2.7-7.7); Neutrophil % 84.7 % (47-70); Platelet Count 203 K/mm3 (150-450); RBC Distribution Width CV 15.7 % (11.6-14.6); RBC Distribution Width SD 45.9 fl (35.1-43.9); Red Blood Count 4.97 M/mm3 (4.2-5.4)
[2018-08-03 12:13] LABS: POSITIVE COUNT NO; POSITIVE DIFFERENTIAL NO; POSITIVE MORPHOLOGY NO
[2018-08-03 12:15] LABS: Anion Gap 7 (5-15); BUN 74 mg/dL (7-18); BUN/Creat Ratio 31.5 RATIO (10-20); Calcium,Total 8.7 mg/dL (8.5-10.1); Chloride 98 mmol/L (98-107); Creatinine, Serum 2.35 mg/dL (0.55-1.02); EST Glomerular Filtration Rate 21 mL/min (>60); Est Glom Filt Rate - Afr Amer 26 mL/min (>60); Estimated Creatinine Clearance 16.58 ml/min; Glucose 303 mg/dL (74-106); Potassium 3.6 mmol/L (3.5-5.1); Sodium Level 136 mmol/L (136-145)
[2018-08-03 13:04] LABS: International Normalized Ratio 3.1; Prothrombin Time (Protime)PT. 31.8 SECONDS (11.7-14.9)
--- NOTE | 2018-08-03 14:09 | ED.VISSUMM ---
- ER Visit Summary Date of Service: 08/03/18 Chief Complaint: Foot injury History of Present Illness: The patient is a 78 F with a left foot injury. The patient dropped a bowl on her left foot about 4 days ago. She has a history of diabetes. She has not had any significant pain but she noted a wound to the left dorsal foot that was white yesterday and then turned black today. She has some surrounding redness and bruising. She has recently been on amoxicillin and prednisone for a cough. She does take Coumadin. Physical Examination: Afebrile and vital signs unremarkable. Alert and oriented. No acute distress. Her left foot is diffusely erythematous with ecchymosis. No increasing warmth. It is edematous dorsally with a quarter sized hemorrhagic bullae. She has good pulses and good capillary refill. Skin is intact otherwise. No deformities. Otherwise left leg is unremarkable. Test Results: X-rays negative for any fracture. White count 15, likely from prednisone. Glucose 303, BUN 74 increased from baseline typically in the 30s-40s, and creatinine stable at 2.35. INR 3.1. Emergency Department Course and Treatment: Patient has a dorsal left foot wound from trauma. The skin is intact. She is neurovascularly intact. I believe that a lot of her findings and symptoms are from her Coumadin use. This does not appear to be an infection. Patient will be treated with a postop shoe. Rest, ice, elevate. Monitor for signs of infection. Follow-up with primary care to recheck your INR. Return for any new or worsening issues, bleeding, or any other complications. Treatment Plan: As above Disposition: Discharge Impression: 1. Left foot hematoma This note was generated with [employer] dictation software. It may contain incorrect words, spelling, and punctuation that were not noted in review of the chart prior to signing ED Disposition - Plan for ED Patient: Chief Complaint: Lower Extremity Injury Referrals: Jovana Moulton MD [Primary Care Provider] -
--- NOTE | 2018-08-03 14:12 | ED.DCSUM_ITS ---
- ER Visit Summary Date of Service: 08/03/18 Chief Complaint: Foot injury History of Present Illness: The patient is a 78 F with a left foot injury. The patient dropped a bowl on her left foot about 4 days ago. She has a history of diabetes. She has not had any significant pain but she noted a wound to the left dorsal foot that was white yesterday and then turned black today. She has some surrounding redness and bruising. She has recently been on amoxicillin and prednisone for a cough. She does take Coumadin. Physical Examination: Afebrile and vital signs unremarkable. Alert and oriented. No acute distress. Her left foot is diffusely erythematous with ecchymosis. No increasing warmth. It is edematous dorsally with a quarter sized hemorrhagic bullae. She has good pulses and good capillary refill. Skin is intact otherwise. No deformities. Otherwise left leg is unremarkable. Test Results: X-rays negative for any fracture. White count 15, likely from prednisone. Glucose 303, BUN 74 increased from baseline typically in the 30s- 40s, and creatinine stable at 2.35. INR 3.1. Emergency Department Course and Treatment: Patient has a dorsal left foot wound from trauma. The skin is intact. She is neurovascularly intact. I believe that a lot of her findings and symptoms are from her Coumadin use. This does not appear to be an infection. Patient will be treated with a postop shoe. Rest, ice, elevate. Monitor for signs of infection. Follow-up with primary care to recheck your INR. Return for any new or worsening issues, bleeding, or any other complications. Treatment Plan: As above Disposition: Discharge Impression: 1. Left foot hematoma This note was generated with [employer] dictation software. It may contain incorrect words, spelling, and punctuation that were not noted in review of the chart prior to signing ED Disposition - Plan for ED Patient: Chief Complaint: Lower Extremity Injury Referrals: Jovana Moulton MD [Primary Care Provider] -
--- NOTE | 2018-08-03 14:12 | ED.DEP ---
ED Disposition - Plan for ED Patient: Chief Complaint: Lower Extremity Injury Instructions: ED Hematoma Referrals: Jovana Moulton MD [Primary Care Provider] - Additional Instructions: [facility] [phone]
[2018-08-03 14:21] VITALS: BP 151/64; PULSE 58; RESP 15; O2SAT 96
== END 2018-08-03 14:22 | disposition home or self-care (01) ==
PROVIDERS: Emergency Provider Emergency Medicine; Family Provider Internal Medicine; PCP Internal Medicine
DX: S90.32XA Contusion of left foot, initial encounter (principal); R23.8 Other skin changes; W22.8XXA Striking against or struck by other objects, initial encounter; Y93.9 Activity, unspecified; Y92.9 Unspecified place or not applicable; R05 Cough; I50.9 Heart failure, unspecified; E11.9 Type 2 diabetes mellitus without complications; Z79.4 Long term (current) use of insulin; Z79.01 Long term (current) use of anticoagulants; Z79.82 Long term (current) use of aspirin; Z79.899 Other long term (current) drug therapy
CPT/HCPCS: 73630; 80048; 85025; 85610; 99285; A4216

== ENCOUNTER 2018-08-27 09:00 | Outpatient (RCR) | payer MEDICARE, SELFPAY ==
[2018-08-20 10:45] VITALS: BP 117/64; PULSE 78; RESP 18; TEMP 36; BMI 29.6
--- NOTE | 2018-08-20 13:03 | PCM.WC.HP ---
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 Status: Chronic Current Visit: Yes Code(s): L97.512 - Non-pressure chronic ulcer of other part of right foot with fat layer exposed (2) Traumatic ulcer of left foot with fat layer exposed Status: Acute Current Visit: Yes Code(s): L97.522 - Non-pressure chronic ulcer of other part of left foot with fat layer exposed (3) Atrial fibrillation Status: Chronic Current Visit: No Qualifiers: Code(s): I48.91 - Unspecified atrial fibrillation (4) CAD (coronary artery disease) Status: Chronic Current Visit: No Code(s): I25.10 - Atherosclerotic heart disease of [place] coronary artery without angina pectoris (5) Chronic diastolic heart failure Status: Chronic Current Visit: No Code(s): I50.32 - Chronic diastolic (congestive) heart failure (6) Diabetes mellitus type II, uncontrolled Status: Chronic Current Visit: No Code(s): E11.65 - Type 2 diabetes mellitus with hyperglycemia History of Present Illness Chief Complaint: Traumatic ulceration of left foot and chronic right great toe ulcer. History of Wound: Ms. Rothman is a 78-year-old who was referred to the wound center by her balloon artist for continued wound care. She has a chronic right great toe ulcer which she has been managing conservatively at home for about 6 months. However, she presented to a balloon artist due to left foot ulcer. She had a bowel drop on her foot about 3 weeks ago. She subsequently developed discoloration and swelling for which she was seen in the emergency room. Imaging done at that time was without any significant abnormality. Plan was to conservatively manage. However about a week ago. She noted an opening over the area with associated drainage/discharge. She was seen by her balloon artist and vacuum therapy was recommended. She reports a history of diabetes which is not well controlled. Last A1c per patient was around 9. She is currently on insulin. Past Medical History Past Medical History: Chronic Problems (Last Reviewed 07/16/18 @ 14:10 by MADELEINE SolorioC) Chronic ulcer of right great toe with fat layer exposed (Chronic) CAD (coronary artery disease) (Chronic) S/P PTCA (percutaneous transluminal coronary angioplasty) (Chronic) S/P CABG x 1 (Chronic) S/P left atrial appendage ligation (Chronic) Atherosclerosis of coronary artery bypass graft without angina pectoris (Chronic) Postsurgical percutaneous transluminal coronary angioplasty (PTCA) status (Chronic) PTCA of LAD ; Paroxysmal atrial fibrillation (Chronic) Depression (Chronic) prison (current) use of anticoagulants (Chronic) Bradycardia (Chronic) S/P CABG x 1 (Chronic 09/29/14) 09/29/2014 CABG: SVG to distal LAD [place] Alex[place] per Dr. Miller 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 Angela Alexis History of mitral valve replacement with bioprosthetic valve (Chronic 09/29/14) 09/29/2014: MVR with 27 mm Medtronic tisue valve per Dr. Angela Alexis Atrial fibrillation (Chronic) Hyperlipidemia (Chronic) Hypertension (Chronic) resistant HTN Cerebrovascular disease (Chronic) ischemic stroke w hemorrhagic transformation in the setting of coumadin anticoagulation Anemia (Chronic) CRF (chronic renal failure) (Chronic) Anticoagulation goal of INR 2 to 3 (Chronic) Diabetes mellitus type II, uncontrolled (Chronic) Stroke with left visual deficit (Chronic) Chronic diastolic heart failure (Chronic) Pulmonary hypertension (Chronic) MAGALI (obstructive sleep apnea) (Chronic) on CPAP Surgical History: angioplasty, cataract, - Allergies/Adverse Reactions: Allergies dronedarone [From Multaq] Allergy (Severe, Verified 08/20/18 11:18) difficulty breathing dronedarone HCl [From Multaq] Allergy (Verified 08/20/18 11:18) Other unable to breath quinapril [From Accupril] Adverse Reaction (Severe, Verified 08/20/18 11:18) near syncope shellfish derived Adverse Reaction (Severe, Verified 08/20/18 11:18) Causes swelling cortisone Adverse Reaction (Intermediate, Verified 08/20/18 11:18) swelling hydralazine Adverse Reaction (Intermediate, Verified 08/20/18 11:18) weakness Beta-Blockers (Beta-Adrenergic Bloc Adverse Reaction (Verified 08/20/18 11:18) Other WHEEZING, shaking, passes out prednisone Adverse Reaction (Verified 08/20/18 11:18) Swelling CARDURA Allergy (Uncoded 08/03/18 10:51) Other PT NOT SURE- POSSIBLE SWELLING NORVASC Allergy (Uncoded 08/03/18 10:51) Swelling SCALLOPS Allergy (Uncoded 08/03/18 10:51) Swelling SULFA Allergy (Uncoded 08/03/18 10:51) Other SPOTS IN MOUTH/SORE MOUTH ATIVAN Adverse Reaction (Uncoded 08/03/18 10:51) Other HALLUCINATIONS METATOPOLOL TARTATE Adverse Reaction (Uncoded 08/03/18 10:51) Other Home Medications: Ambulatory Orders Medication Instructions Recorded Insulin Aspart [Novolog Flexpen] 10 units SC TIDCM 09/20/14 Albuterol Inhaler [Ventolin Hfa] 2 puff INHALATION Q4H PRN PRN #1 10/27/14 inhaler Calcitriol [Rocaltrol] 0.25 mcg PO MOWEFR 01/16/17 Aspirin E.C. [Ecotrin] 81 mg PO QHS 01/07/18 Albuterol Aerosols [Ventolin 3 ml INHALATION BID 06/22/18 Aerosols] Amiodarone HCl 100 mg PO DAILY 06/22/18 Furosemide [Lasix] 40 mg PO BID 06/22/18 Hydrocortisone 1 applic TP DAILY 06/22/18 Multivit-Min/Iron/Folic/Lutein 1 tab PO DAILY 06/22/18 [Centrum Silver Women Tablet] Diltiazem CD [Cardizem CD] 120 mg PO DAILY #0 cap 06/28/18 spironolactone 50 mg tablet 50 mg PO DAILY #30 tab 07/16/18 Insulin Glargine [Lantus SoloStar 50 units SUBCUT BREAKFAST 07/22/18 Pen] Warfarin Sodium 3 mg PO DAILY 07/22/18 metolazone 2.5 mg tablet 2.5 mg PO .COMPLEX #30 tab 07/24/18 amoxicillin 875 mg-potassium 1 tab PO BID #10 tab 07/27/18 clavulanate 125 mg tablet levothyroxine 88 mcg tablet 88 mcg PO DAILY 30 Days #90 tab 07/27/18 prednisone 10 mg tablet 10 mg PO .COMPLEX #40 tab 07/27/18 warfarin 1 mg tablet 1 mg PO DAILY #1 tab 08/10/18 lisinopril 40 mg tablet 40 mg PO DAILY 08/13/18 Coumadin 3 mg 08/20/18 - Family History Maternal Family History: Family History (Last Reviewed 07/27/18 @ 11:44 by Bridget Lu) Father CAD (coronary artery disease) Hypertension Myocardial infarction Sudden cardiac Hyperlipidemia Mother Breast cancer Brother Cancer Sister Breast cancer Hyperlipidemia Sister Hyperlipidemia Cancer Paternal Family History: Family History (Last Reviewed 07/27/18 @ 11:44 by Bridget Lu) Father CAD (coronary artery disease) Hypertension Myocardial infarction Sudden cardiac Hyperlipidemia Mother Breast cancer Brother Cancer Sister Breast cancer Hyperlipidemia Sister Hyperlipidemia Heart Disease, Stroke Sibling Family History: Family History (Last Reviewed 07/27/18 @ 11:44 by Bridget Lu) Father CAD (coronary artery disease) Hypertension Myocardial infarction Sudden cardiac Hyperlipidemia Mother Breast cancer Brother Cancer Sister Breast cancer Hyperlipidemia Sister Hyperlipidemia Cancer - in brother and sister Smoking Status: Never smoker Review of Systems Constitutional: Denies: Anorexia, Chills, Fever Eyes: Denies: Blurred vision, Pain HEENT: Denies: Difficulty Swallowing Cardiovascular: Denies: Chest Pain, Chest Pressure Respiratory: Denies: Hemoptysis Gastrointestinal: Denies: Abdominal Pain, Hematemesis, Vomiting Genitourinary: Denies: Hematuria Skin: Denies: Jaundice - Physical Exam Vital Signs Temp Pulse Resp BP 96.8 F L 78 18 117/64 08/20/18 10:45 08/20/18 10:45 08/20/18 10:45 08/20/18 10:45 General: Alert, Oriented x3, Cooperative, No apparent distress HEENT: Atraumatic, Normocephalic Oral: Moist Mucosa Neck: Supple Lungs: Normal air movement Abdomen: Soft, Non Tender Extremities: No cyanosis, Edema Skin: Ulcer/ Wound Wound Measurements and Assessment WC - Nurse 1 - General Ulcer Measurement Start: 08/20/18 10:42 Freq: Status: Active Protocol: Activity Type Activity Date Activity User E-Sign Co-Sign Detail Recorded Client Recorded Date Recorded By Document 08/20/18 10:45 DL [id number] 08/20/18 11:13 DL 08/20/18 10:45 Wound Center Nurse 1 [Ulcer Assessment] #3 R Grt Toe Plantar -Current Size (cm) - Length 0.5 -Current Size (cm) - Width 0.5 -Current Size (cm) - Depth 0.2 -Total Square Cm 0.25 -Photo Taken Yes -Classification - Thickness Full Thickness without Exposed Support Structure -Exudate Amt None Present -Wound Margin Flat & Intact -Granulation Amt Small (1-33%) -Granulation Quality [place] -Necrosis Amt None Present (0 %) -Structure Exposed N/A -Texture (Amy-wound Skin Appearance) Callus -Moisture (Amy-wound Skin Appearance Weeping ) -Color (Amy-wound Skin Appearance) No Abnormality -Temperature (Amy-wound Skin No Abnormality Appearance) (Pt Warm) -Tenderness on Palpation (Amy-wound No Skin Appearance) -Ulcer Cleansing Rinsed/ Irrigated with Saline -Foul Odor after Cleansing No -Anesthetic Used 4% Lidocaine Solution #2 L Foot Dorsal -Current Size (cm) - Length 1.8 -Current Size (cm) - Width 1.5 -Current Size (cm) - Depth 0.6 -Total Square Cm 2.70 -Photo Taken Yes -Undermining/Tunneling Starts (O' 7 clock) -Undermining/Tunneling Ends (O'clock) 11 -Maximum Distance (cm) 0.2 -Classification - Thickness Full Thickness without Exposed Support Structure -Exudate Amt Small -Exudate Type Serosanguineous -Wound Margin Thickened & Rolled Under -Granulation Amt Small (1-33%) -Granulation Quality [place] -Necrosis Amt Large (67-100%) -Necrotic Tissue Type Adherent Slough -Structure Exposed N/A -Texture (Amy-wound Skin Appearance) Localized Edema Scarring -Moisture (Amy-wound Skin Appearance No Abnormality ) -Color (Amy-wound Skin Appearance) Erythema Hemosiderin Staining Rubor -Temperature (Amy-wound Skin No Abnormality Appearance) (Pt Warm) -Tenderness on Palpation (Amy-wound Yes Skin Appearance) -Ulcer Cleansing Rinsed/ Irrigated with Saline -Foul Odor after Cleansing No -Anesthetic Used 5% Lidocaine Gel [Edema Assessment] -Right Calf (cm) 31.5 -Right Ankle (cm) 21.3 -Left Calf (cm) 34 -Left Ankle (cm) 22 WC - Nurse 2 - General Ulcer CM Notes Start: 08/20/18 10:42 Freq: Status: Active Protocol: Activity Type Activity Date Activity User E-Sign Co-Sign Detail Recorded Client Recorded Date Recorded By Document 08/20/18 11:53 MW [email or web address] 08/20/18 12:07 MW 08/20/18 11:53 Wound Center Nurse 2 [Procedure/Treatment] #3 R Grt Toe Plantar -Time 11:55 -Correct Patient Yes -Correct Side, Site, Position Yes -Correct Procedure Yes -Procedure Performed Yes -Type of Procedure Debridement -Clinical Debridement Subcutaneous -Post Debridement Size (cm) - Length 0.4 -Post Debridement Size (cm) - Width 0.3 -Post Debridement Size (cm) - Depth 0.1 -Total Square Cm 0.12 -Wound/Ulcer Outcome Not Healed -Ulcer Cleansing Rinsed/ Irrigated with Saline -Foul Odor after Cleansing No -Bioengineered Tissue No -Bleeding Controlled with Pressure -Offloading No -Treatment Response Procedure Tolerated Well #2 L Foot Dorsal -Time 11:53 -Correct Patient Yes -Correct Side, Site, Position Yes -Correct Procedure Yes -Procedure Performed Yes -Type of Procedure Debridement -Clinical Debridement Subcutaneous -Post Debridement Size (cm) - Length 2.0 -Post Debridement Size (cm) - Width 1.5 -Post Debridement Size (cm) - Depth 0.5 -Total Square Cm 3.00 -Wound/Ulcer Outcome Not Healed -Ulcer Cleansing Rinsed/ Irrigated with Saline -Foul Odor after Cleansing No -Bioengineered Tissue No -Bleeding Controlled with Pressure -Offloading No -Treatment Response Procedure Tolerated Well [See Physician Procedure note for Specifics] Pain Scale: 0-10 Numeric [Pain] -Is Patient Pain Free? Yes Musculoskeletal: No Muscle Wasting Neurological: Cranial nerves II-XII grossly intact Psych/Mental Status: Normal Affect Debridement Note Post-Debridement Measurements/Treatment WC - Nurse 2 - General Ulcer CM Notes Start: 08/20/18 10:42 Freq: Status: Active Protocol: Activity Type Activity Date Activity User E-Sign Co-Sign Detail Recorded Client Recorded Date Recorded By Document 08/20/18 11:53 MW [email or web address] 08/20/18 12:07 MW 08/20/18 11:53 Wound Center Nurse 2 #3 R Grt Toe Plantar -Time 11:55 -Correct Patient Yes -Correct Side, Site, Position Yes -Correct Procedure Yes -Procedure Performed Yes -Type of Procedure Debridement -Clinical Debridement Subcutaneous -Post Debridement Size (cm) - Length 0.4 -Post Debridement Size (cm) - Width 0.3 -Post Debridement Size (cm) - Depth 0.1 -Total Square Cm 0.12 -Wound/Ulcer Outcome Not Healed -Ulcer Cleansing Rinsed/ Irrigated with Saline -Foul Odor after Cleansing No -Bioengineered Tissue No -Bleeding Controlled with Pressure -Offloading No -Treatment Response Procedure Tolerated Well #2 L Foot Dorsal -Time 11:53 -Correct Patient Yes -Correct Side, Site, Position Yes -Correct Procedure Yes -Procedure Performed Yes -Type of Procedure Debridement -Clinical Debridement Subcutaneous -Post Debridement Size (cm) - Length 2.0 -Post Debridement Size (cm) - Width 1.5 -Post Debridement Size (cm) - Depth 0.5 -Total Square Cm 3.00 -Wound/Ulcer Outcome Not Healed -Ulcer Cleansing Rinsed/ Irrigated with Saline -Foul Odor after Cleansing No -Bioengineered Tissue No -Bleeding Controlled with Pressure -Offloading No -Treatment Response Procedure Tolerated Well Pain Scale: 0-10 Numeric Is Patient Pain Free? Yes Wound debrided: Left dorsal foot Wound Grade/Stage: Stage III Type of Debridement: Excisional debridement Anesthesia Used: 4% Lidocaine Solution Depth: Down to and including healthy tissue, in the subcutaneous layer Percentage of wound debrided: 100 Instrument Used: 5mm curette Tissue Removed: Slough and devitalized tissue Severity: Fat Layer Exposed Amount of bleeding with debridement: Mild Bleeding Controlled with: Pressure Patient tolerated procedure well - Additional Wound Wound debrided: Right great toe Wound Grade/Stage: Stage II Type of Debridement: Excisional debridement Anesthesia Used: 4% Lidocaine Solution Depth: Down to and including healthy tissue, in the subcutaneous layer Percentage of wound debrided: 100 Instrument Used: 3mm curette Tissue Removed: Slough and devitalized tissue Severity: Fat Layer Exposed Amount of bleeding with debridement: Mild Bleeding Controlled with: Pressure Patient tolerated procedure: Patient tolerated procedure well Assessment/Plan Active Problems (Last Reviewed 07/16/18 @ 14:10 by Vicky Arzate NP-C) Chronic ulcer of right great toe with fat layer exposed (Chronic) Traumatic ulcer of left foot with fat layer exposed (Acute) Assessment: Traumatic ulcer of the left dorsal foot and chronic right great toe ulcer in a patient with poorly controlled diabetes mellitus. Plan: Debridement of both ulcers done as documented above. Procedure was well-tolerated. Will hold off culture to the left dorsal foot for now. Currently on doxycycline and Keflex as prescribed by her PCP. Snap VAC to the left dorsal foot. Follow-up on Friday for a nurse visit for change. Promogran with Adaptic over top to the right great toe. Change daily. Elevate lower extremities when sitting in bed. SurePress for edema management. Increased protein intake recommended. Optimal blood sugar control also strongly recommended. She was advised to follow-up with her PCP to adjust her insulin. All her questions were answered and she was advised to call with any further questions or concerns. Follow-up in 1 week. This note was generated with [employer] dictation software. It may contain incorrect words, spelling, and punctuation that were not noted in checking the note before signing.
--- NOTE | 2018-08-20 13:07 | HP.PCM_ITS ---
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 Status: Chronic Current Visit: Yes Code(s): L97.512 - Non-pressure chronic ulcer of other part of right foot with fat layer exposed (2) Traumatic ulcer of left foot with fat layer exposed Status: Acute Current Visit: Yes Code(s): L97.522 - Non-pressure chronic ulcer of other part of left foot with fat layer exposed (3) Atrial fibrillation Status: Chronic Current Visit: No Qualifiers: Code(s): I48.91 - Unspecified atrial fibrillation (4) CAD (coronary artery disease) Status: Chronic Current Visit: No Code(s): I25.10 - Atherosclerotic heart disease of [place] coronary artery without angina pectoris (5) Chronic diastolic heart failure Status: Chronic Current Visit: No Code(s): I50.32 - Chronic diastolic (congestive) heart failure (6) Diabetes mellitus type II, uncontrolled Status: Chronic Current Visit: No Code(s): E11.65 - Type 2 diabetes mellitus with hyperglycemia History of Present Illness Chief Complaint: Traumatic ulceration of left foot and chronic right great toe ulcer. History of Wound: Ms. Rothman is a 78-year-old who was referred to the wound center by her physical biochemist for continued wound care. She has a chronic right great toe ulcer which she has been managing conservatively at home for about 6 months. However, she presented to a physical biochemist due to left foot ulcer. She had a bowel drop on her foot about 3 weeks ago. She subsequently developed discoloration and swelling for which she was seen in the emergency room. Imaging done at that time was without any significant abnormality. Plan was to conservatively manage. However about a week ago. She noted an opening over the area with associated drainage/discharge. She was seen by her physical biochemist and vacuum therapy was recommended. She reports a history of diabetes which is not well controlled. Last A1c per patient was around 9. She is currently on insulin. 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 Miller 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 Angela Alexis History of mitral valve replacement with bioprosthetic valve (Chronic 09/29/14) 09/29/2014: MVR with 27 mm Medtronic tisue valve per Dr. Angela Alexis Atrial fibrillation (Chronic) Hyperlipidemia (Chronic) Hypertension (Chronic) resistant HTN Cerebrovascular disease (Chronic) ischemic stroke w hemorrhagic transformation in the setting of coumadin anticoagulation Anemia (Chronic) CRF (chronic renal failure) (Chronic) Anticoagulation goal of INR 2 to 3 (Chronic) Diabetes mellitus type II, uncontrolled (Chronic) Stroke with left visual deficit (Chronic) Chronic diastolic heart failure (Chronic) Pulmonary hypertension (Chronic) MAGALI (obstructive sleep apnea) (Chronic) on CPAP Surgical History: angioplasty, cataract, - Allergies/Adverse Reactions: Allergies dronedarone [From Multaq] Allergy (Severe, Verified 08/20/18 11:18) difficulty breathing dronedarone HCl [From Multaq] Allergy (Verified 08/20/18 11:18) Other unable to breath quinapril [From Accupril] Adverse Reaction (Severe, Verified 08/20/18 11:18) near syncope shellfish derived Adverse Reaction (Severe, Verified 08/20/18 11:18) Causes swelling cortisone Adverse Reaction (Intermediate, Verified 08/20/18 11:18) swelling hydralazine Adverse Reaction (Intermediate, Verified 08/20/18 11:18) weakness Beta-Blockers (Beta-Adrenergic Bloc Adverse Reaction (Verified 08/20/18 11:18) Other WHEEZING, shaking, passes out prednisone Adverse Reaction (Verified 08/20/18 11:18) Swelling CARDURA Allergy (Uncoded 08/03/18 10:51) Other PT NOT SURE- POSSIBLE SWELLING NORVASC Allergy (Uncoded 08/03/18 10:51) Swelling SCALLOPS Allergy (Uncoded 08/03/18 10:51) Swelling SULFA Allergy (Uncoded 08/03/18 10:51) Other SPOTS IN MOUTH/SORE MOUTH ATIVAN Adverse Reaction (Uncoded 08/03/18 10:51) Other HALLUCINATIONS METATOPOLOL TARTATE Adverse Reaction (Uncoded 08/03/18 10:51) Other Home Medications: Ambulatory Orders Medication Instructions Recorded Insulin Aspart [Novolog Flexpen] 10 units SC TIDCM 09/20/14 Albuterol Inhaler [Ventolin Hfa] 2 puff INHALATION Q4H PRN PRN #1 10/27/14 inhaler Calcitriol [Rocaltrol] 0.25 mcg PO MOWEFR 01/16/17 Aspirin E.C. [Ecotrin] 81 mg PO QHS 01/07/18 Albuterol Aerosols [Ventolin 3 ml INHALATION BID 06/22/18 Aerosols] Amiodarone HCl 100 mg PO DAILY 06/22/18 Furosemide [Lasix] 40 mg PO BID 06/22/18 Hydrocortisone 1 applic TP DAILY 06/22/18 Multivit-Min/Iron/Folic/Lutein 1 tab PO DAILY 06/22/18 [Centrum Silver Women Tablet] Diltiazem CD [Cardizem CD] 120 mg PO DAILY #0 cap 06/28/18 spironolactone 50 mg tablet 50 mg PO DAILY #30 tab 07/16/18 Insulin Glargine [Lantus SoloStar 50 units SUBCUT BREAKFAST 07/22/18 Pen] Warfarin Sodium 3 mg PO DAILY 07/22/18 metolazone 2.5 mg tablet 2.5 mg PO .COMPLEX #30 tab 07/24/18 amoxicillin 875 mg-potassium 1 tab PO BID #10 tab 07/27/18 clavulanate 125 mg tablet levothyroxine 88 mcg tablet 88 mcg PO DAILY 30 Days #90 tab 07/27/18 prednisone 10 mg tablet 10 mg PO .COMPLEX #40 tab 07/27/18 warfarin 1 mg tablet 1 mg PO DAILY #1 tab 08/10/18 lisinopril 40 mg tablet 40 mg PO DAILY 08/13/18 Coumadin 3 mg 08/20/18 - Family History Maternal Family History: Family History (Last Reviewed 07/27/18 @ 11:44 by Bridget Lu) Father CAD (coronary artery disease) Hypertension Myocardial infarction Sudden cardiac Hyperlipidemia Mother Breast cancer Brother Cancer Sister Breast cancer Hyperlipidemia Sister Hyperlipidemia Cancer Paternal Family History: Family History (Last Reviewed 07/27/18 @ 11:44 by Bridget Lu) Father CAD (coronary artery disease) Hypertension Myocardial infarction Sudden cardiac Hyperlipidemia Mother Breast cancer Brother Cancer Sister Breast cancer Hyperlipidemia Sister Hyperlipidemia Heart Disease, Stroke Sibling Family History: Family History (Last Reviewed 07/27/18 @ 11:44 by Bridget Lu) Father CAD (coronary artery disease) Hypertension Myocardial infarction Sudden cardiac Hyperlipidemia Mother Breast cancer Brother Cancer Sister Breast cancer Hyperlipidemia Sister Hyperlipidemia Cancer - in brother and sister Smoking Status: Never smoker Review of Systems Constitutional: Denies: Anorexia, Chills, Fever Eyes: Denies: Blurred vision, Pain HEENT: Denies: Difficulty Swallowing Cardiovascular: Denies: Chest Pain, Chest Pressure Respiratory: Denies: Hemoptysis Gastrointestinal: Denies: Abdominal Pain, Hematemesis, Vomiting Genitourinary: Denies: Hematuria Skin: Denies: Jaundice - Physical Exam Vital Signs Temp Pulse Resp BP 96.8 F L 78 18 117/64 08/20/18 10:45 08/20/18 10:45 08/20/18 10:45 08/20/18 10:45 General: Alert, Oriented x3, Cooperative, No apparent distress HEENT: Atraumatic, Normocephalic Oral: Moist Mucosa Neck: Supple Lungs: Normal air movement Abdomen: Soft, Non Tender Extremities: No cyanosis, Edema Skin: Ulcer/ Wound Wound Measurements and Assessment WC - Nurse 1 - General Ulcer Measurement Start: 08/20/18 10:42 Freq: Status: Active Protocol: Activity Type Activity Date Activity User E-Sign Co-Sign Detail Recorded Client Recorded Date Recorded By Document 08/20/18 10:45 DL [id number] 08/20/18 11:13 DL 08/20/18 10:45 Wound Center Nurse 1 [Ulcer Assessment] #3 R Grt Toe Plantar -Current Size (cm) - Length 0.5 -Current Size (cm) - Width 0.5 -Current Size (cm) - Depth 0.2 -Total Square Cm 0.25 -Photo Taken Yes -Classification - Thickness Full Thickness without Exposed Support Structure -Exudate Amt None Present -Wound Margin Flat & Intact -Granulation Amt Small (1-33%) -Granulation Quality [place] -Necrosis Amt None Present (0 %) -Structure Exposed N/A -Texture (Amy-wound Skin Appearance) Callus -Moisture (Amy-wound Skin Appearance Weeping ) -Color (Amy-wound Skin Appearance) No Abnormality -Temperature (Amy-wound Skin No Abnormality Appearance) (Pt Warm) -Tenderness on Palpation (Amy-wound No Skin Appearance) -Ulcer Cleansing Rinsed/ Irrigated with Saline -Foul Odor after Cleansing No -Anesthetic Used 4% Lidocaine Solution #2 L Foot Dorsal -Current Size (cm) - Length 1.8 -Current Size (cm) - Width 1.5 -Current Size (cm) - Depth 0.6 -Total Square Cm 2.70 -Photo Taken Yes -Undermining/Tunneling Starts (O' 7 clock) -Undermining/Tunneling Ends (O'clock) 11 -Maximum Distance (cm) 0.2 -Classification - Thickness Full Thickness without Exposed Support Structure -Exudate Amt Small -Exudate Type Serosanguineous -Wound Margin Thickened & Rolled Under -Granulation Amt Small (1-33%) -Granulation Quality [place] -Necrosis Amt Large (67-100%) -Necrotic Tissue Type Adherent Slough -Structure Exposed N/A -Texture (Amy-wound Skin Appearance) Localized Edema Scarring -Moisture (Amy-wound Skin Appearance No Abnormality ) -Color (Amy-wound Skin Appearance) Erythema Hemosiderin Staining Rubor -Temperature (Amy-wound Skin No Abnormality Appearance) (Pt Warm) -Tenderness on Palpation (Amy-wound Yes Skin Appearance) -Ulcer Cleansing Rinsed/ Irrigated with Saline -Foul Odor after Cleansing No -Anesthetic Used 5% Lidocaine Gel [Edema Assessment] -Right Calf (cm) 31.5 -Right Ankle (cm) 21.3 -Left Calf (cm) 34 -Left Ankle (cm) 22 WC - Nurse 2 - General Ulcer CM Notes Start: 08/20/18 10:42 Freq: Status: Active Protocol: Activity Type Activity Date Activity User E-Sign Co-Sign Detail Recorded Client Recorded Date Recorded By Document 08/20/18 11:53 MW [id number] 08/20/18 12:07 MW 08/20/18 11:53 Wound Center Nurse 2 [Procedure/Treatment] #3 R Grt Toe Plantar -Time 11:55 -Correct Patient Yes -Correct Side, Site, Position Yes -Correct Procedure Yes -Procedure Performed Yes -Type of Procedure Debridement -Clinical Debridement Subcutaneous -Post Debridement Size (cm) - Length 0.4 -Post Debridement Size (cm) - Width 0.3 -Post Debridement Size (cm) - Depth 0.1 -Total Square Cm 0.12 -Wound/Ulcer Outcome Not Healed -Ulcer Cleansing Rinsed/ Irrigated with Saline -Foul Odor after Cleansing No -Bioengineered Tissue No -Bleeding Controlled with Pressure -Offloading No -Treatment Response Procedure Tolerated Well #2 L Foot Dorsal -Time 11:53 -Correct Patient Yes -Correct Side, Site, Position Yes -Correct Procedure Yes -Procedure Performed Yes -Type of Procedure Debridement -Clinical Debridement Subcutaneous -Post Debridement Size (cm) - Length 2.0 -Post Debridement Size (cm) - Width 1.5 -Post Debridement Size (cm) - Depth 0.5 -Total Square Cm 3.00 -Wound/Ulcer Outcome Not Healed -Ulcer Cleansing Rinsed/ Irrigated with Saline -Foul Odor after Cleansing No -Bioengineered Tissue No -Bleeding Controlled with Pressure -Offloading No -Treatment Response Procedure Tolerated Well [See Physician Procedure note for Specifics] Pain Scale: 0-10 Numeric [Pain] -Is Patient Pain Free? Yes Musculoskeletal: No Muscle Wasting Neurological: Cranial nerves II-XII grossly intact Psych/Mental Status: Normal Affect Debridement Note Post-Debridement Measurements/Treatment WC - Nurse 2 - General Ulcer CM Notes Start: 08/20/18 10:42 Freq: Status: Active Protocol: Activity Type Activity Date Activity User E-Sign Co-Sign Detail Recorded Client Recorded Date Recorded By Document 08/20/18 11:53 MW [id number] 08/20/18 12:07 MW 08/20/18 11:53 Wound Center Nurse 2 #3 R Grt Toe Plantar -Time 11:55 -Correct Patient Yes -Correct Side, Site, Position Yes -Correct Procedure Yes -Procedure Performed Yes -Type of Procedure Debridement -Clinical Debridement Subcutaneous -Post Debridement Size (cm) - Length 0.4 -Post Debridement Size (cm) - Width 0.3 -Post Debridement Size (cm) - Depth 0.1 -Total Square Cm 0.12 -Wound/Ulcer Outcome Not Healed -Ulcer Cleansing Rinsed/ Irrigated with Saline -Foul Odor after Cleansing No -Bioengineered Tissue No -Bleeding Controlled with Pressure -Offloading No -Treatment Response Procedure Tolerated Well #2 L Foot Dorsal -Time 11:53 -Correct Patient Yes -Correct Side, Site, Position Yes -Correct Procedure Yes -Procedure Performed Yes -Type of Procedure Debridement -Clinical Debridement Subcutaneous -Post Debridement Size (cm) - Length 2.0 -Post Debridement Size (cm) - Width 1.5 -Post Debridement Size (cm) - Depth 0.5 -Total Square Cm 3.00 -Wound/Ulcer Outcome Not Healed -Ulcer Cleansing Rinsed/ Irrigated with Saline -Foul Odor after Cleansing No -Bioengineered Tissue No -Bleeding Controlled with Pressure -Offloading No -Treatment Response Procedure Tolerated Well Pain Scale: 0-10 Numeric Is Patient Pain Free? Yes Wound debrided: Left dorsal foot Wound Grade/Stage: Stage III Type of Debridement: Excisional debridement Anesthesia Used: 4% Lidocaine Solution Depth: Down to and including healthy tissue, in the subcutaneous layer Percentage of wound debrided: 100 Instrument Used: 5mm curette Tissue Removed: Slough and devitalized tissue Severity: Fat Layer Exposed Amount of bleeding with debridement: Mild Bleeding Controlled with: Pressure Patient tolerated procedure well - Additional Wound Wound debrided: Right great toe Wound Grade/Stage: Stage II Type of Debridement: Excisional debridement Anesthesia Used: 4% Lidocaine Solution Depth: Down to and including healthy tissue, in the subcutaneous layer Percentage of wound debrided: 100 Instrument Used: 3mm curette Tissue Removed: Slough and devitalized tissue Severity: Fat Layer Exposed Amount of bleeding with debridement: Mild Bleeding Controlled with: Pressure Patient tolerated procedure: Patient tolerated procedure well Assessment/Plan Active Problems (Last Reviewed 07/16/18 @ 14:10 by Vicky Arzate NP-C) Chronic ulcer of right great toe with fat layer exposed (Chronic) Traumatic ulcer of left foot with fat layer exposed (Acute) Assessment: Traumatic ulcer of the left dorsal foot and chronic right great toe ulcer in a patient with poorly controlled diabetes mellitus. Plan: Debridement of both ulcers done as documented above. Procedure was well- tolerated. Will hold off culture to the left dorsal foot for now. Currently on doxycycline and Keflex as prescribed by her PCP. Snap VAC to the left dorsal foot. Follow-up on Friday for a nurse visit for change. Promogran with Adaptic over top to the right great toe. Change daily. Elevate lower extremities when sitting in bed. SurePress for edema management. Increased protein intake recommended. Optimal blood sugar control also strongly recommended. She was advised to follow-up with her PCP to adjust her insulin. All her questions were answered and she was advised to call with any further questions or concerns. Follow-up in 1 week. This note was generated with [employer] dictation software. It may contain incorrect words, spelling, and punctuation that were not noted in checking the note before signing.
[2018-08-24 11:39] VITALS: BP 142/71; PULSE 62; RESP 16; TEMP 37; BMI 29.6
[2018-08-27 09:01] VITALS: BP 127/43; PULSE 67; RESP 16; TEMP 36.2; BMI 29.6
--- NOTE | 2018-08-27 09:50 | PCM.WC.PN ---
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 Status: Chronic Current Visit: Yes Code(s): L97.512 - Non-pressure chronic ulcer of other part of right foot with fat layer exposed (2) Traumatic ulcer of left foot with fat layer exposed Status: Acute Current Visit: Yes Code(s): L97.522 - Non-pressure chronic ulcer of other part of left foot with fat layer exposed (3) Atrial fibrillation Status: Chronic Current Visit: No Qualifiers: Code(s): I48.91 - Unspecified atrial fibrillation (4) CAD (coronary artery disease) Status: Chronic Current Visit: No Code(s): I25.10 - Atherosclerotic heart disease of [place] coronary artery without angina pectoris (5) Chronic diastolic heart failure Status: Chronic Current Visit: No Code(s): I50.32 - Chronic diastolic (congestive) heart failure (6) Diabetes mellitus type II, uncontrolled Status: Chronic Current Visit: No Code(s): E11.65 - Type 2 diabetes mellitus with hyperglycemia Type of Wound Chief Complaint: Traumatic ulceration of left foot and chronic right great toe ulcer. History of Wound: Ms. Rothman is a 78-year-old who was referred to the wound center by her senior financial accountant for continued wound care. She has a chronic right great toe ulcer which she has been managing conservatively at home for about 6 months. However, she presented to a senior financial accountant due to left foot ulcer. She had a bowel drop on her foot about 3 weeks ago. She subsequently developed discoloration and swelling for which she was seen in the emergency room. Imaging done at that time was without any significant abnormality. Plan was to conservatively manage. However about a week ago. She noted an opening over the area with associated drainage/discharge. She was seen by her senior financial accountant and vacuum therapy was recommended. She reports a history of diabetes which is not well controlled. Last A1c per patient was around 9. She is currently on insulin. Progress of Wound: Improving. Has had no problems with snap VAC so far. - Physical Exam Vital Signs Temp Pulse Resp BP 97.1 F L 67 16 127/43 H 08/27/18 09:01 08/27/18 09:01 08/27/18 09:01 08/27/18 09:01 General: Alert, Oriented x3, Cooperative, No apparent distress HEENT: Atraumatic, Normocephalic Oral: Moist Mucosa Neck: Supple Lungs: Normal air movement Extremities: No cyanosis Skin: Ulcer/ Wound Wound Measurements and Assessment WC - Nurse 1 - General Ulcer Measurement Start: 08/20/18 10:42 Freq: Status: Active Protocol: Activity Type Activity Date Activity User E-Sign Co-Sign Detail Recorded Client Recorded Date Recorded By Document 08/24/18 11:39 [facility] [id number] 08/24/18 11:50 BM Document 08/27/18 09:01 [facility] [id number] 08/27/18 09:19 BMF 08/24/18 08/27/18 11:39 09:01 [Ulcer Assessment] #3 R Grt Toe Plantar -Combined with other wound No -Current Size (cm) - Length 0.2 -Current Size (cm) - Width 0.2 -Current Size (cm) - Depth 0.3 -Total Square Cm 0.04 -Photo Taken No -Epithelialization None Present -Tunneling No -Undermining/Tunneling Yes -Undermining/Tunneling Starts (O' 11 clock) -Undermining/Tunneling Ends (O'clock) 2 -Maximum Distance (cm) 0.2 -Circular Undermining No -Exudate Amt Small -Exudate Type Sanguineous -Wound Margin Flat & Intact -Granulation Amt None Present (0 %) -Slough/Fibrin Yes -Necrosis Amt Large (67-100%) -Necrotic Tissue Type Adherent Slough -Texture (Amy-wound Skin Appearance) Callus Scarring -Moisture (Amy-wound Skin Appearance Dry/Scaly ) -Color (Amy-wound Skin Appearance) Assessed -Temperature (Amy-wound Skin No Abnormality Appearance) (Pt Warm) -Tenderness on Palpation (Amy-wound No Skin Appearance) -Ulcer Cleansing Wound Cleanser -Foul Odor after Cleansing No -Anesthetic Used 5% Lidocaine Gel #2 L Foot Dorsal -Combined with other wound No -Current Size (cm) - Length 1.8 -Current Size (cm) - Width 1.3 -Current Size (cm) - Depth 0.4 -Total Square Cm 2.34 -Photo Taken No -Epithelialization None Present -Tunneling No -Undermining/Tunneling No -Circular Undermining No -Exudate Amt Medium -Exudate Type Serosanguineous -Wound Margin Thickened & Rolled Under -Granulation Amt Small (1-33%) -Granulation Quality [place] -Slough/Fibrin Yes -Necrosis Amt Large (67-100%) -Necrotic Tissue Type Adherent Slough -Texture (Amy-wound Skin Appearance) Scarring -Moisture (Amy-wound Skin Appearance Maceration ) Dry/Scaly -Color (Amy-wound Skin Appearance) Erythema Palor -Temperature (Amy-wound Skin No Abnormality Appearance) (Pt Warm) -Tenderness on Palpation (Amy-wound No Skin Appearance) -Ulcer Cleansing Wound Cleanser -Foul Odor after Cleansing No -Anesthetic Used 5% Lidocaine Gel Wound Center Nurse 1 [Edema Assessment] -Lower Limb Edema Present Yes Yes -Left Calf (cm) 32.7 33.3 -Left Ankle (cm) 20.6 20.5 WC - Nurse 2 - General Ulcer CM Notes Start: 08/20/18 10:42 Freq: Status: Active Protocol: Activity Type Activity Date Activity User E-Sign Co-Sign Detail Recorded Client Recorded Date Recorded By Document 08/27/18 09:27 MW [id number] 08/27/18 09:34 MW 08/27/18 09:27 Wound Center Nurse 2 [Procedure/Treatment] #3 R Grt Toe Plantar -Time 09:28 -Correct Patient Yes -Correct Side, Site, Position Yes -Correct Procedure Yes -Procedure Performed Yes -Type of Procedure Debridement -Clinical Debridement Subcutaneous -Post Debridement Size (cm) - Length 0.3 -Post Debridement Size (cm) - Width 0.3 -Post Debridement Size (cm) - Depth 0.1 -Total Square Cm 0.09 -Wound/Ulcer Outcome Not Healed -Ulcer Cleansing Rinsed/ Irrigated with Saline -Foul Odor after Cleansing No -Bleeding Controlled with Pressure -Offloading No -Treatment Response Procedure Tolerated Well #2 L Foot Dorsal -Time 09:30 -Correct Patient Yes -Correct Side, Site, Position Yes -Correct Procedure Yes -Procedure Performed Yes -Type of Procedure Debridement -Clinical Debridement Subcutaneous -Post Debridement Size (cm) - Length 1.8 -Post Debridement Size (cm) - Width 1.5 -Post Debridement Size (cm) - Depth 0.3 -Total Square Cm 2.70 -Wound/Ulcer Outcome Not Healed -Ulcer Cleansing Rinsed/ Irrigated with Saline -Foul Odor after Cleansing No -Bioengineered Tissue No -Bleeding Controlled with Pressure -Offloading No -Treatment Response Procedure Tolerated Well [See Physician Procedure note for Specifics] Pain Scale: 0-10 Numeric [Pain] -Is Patient Pain Free? Yes Musculoskeletal: No Muscle Wasting Neurological: Cranial nerves II-XII grossly intact Psych/Mental Status: Normal Affect Debridement Note Post-Debridement Measurements/Treatment WC - Nurse 2 - General Ulcer CM Notes Start: 08/20/18 10:42 Freq: Status: Active Protocol: Activity Type Activity Date Activity User E-Sign Co-Sign Detail Recorded Client Recorded Date Recorded By Document 08/20/18 11:53 MW [id number] 08/20/18 12:07 MW Document 08/27/18 09:27 MW [id number] 08/27/18 09:34 MW 08/20/18 08/27/18 11:53 09:27 Wound Center Nurse 2 #3 R Grt Toe Plantar -Time 11:55 09:28 -Correct Patient Yes Yes -Correct Side, Site, Position Yes Yes -Correct Procedure Yes Yes -Procedure Performed Yes Yes -Type of Procedure Debridement Debridement -Clinical Debridement Subcutaneous Subcutaneous -Post Debridement Size (cm) - Length 0.4 0.3 -Post Debridement Size (cm) - Width 0.3 0.3 -Post Debridement Size (cm) - Depth 0.1 0.1 -Total Square Cm 0.12 0.09 -Wound/Ulcer Outcome Not Healed Not Healed -Ulcer Cleansing Rinsed/ Rinsed/ Irrigated with Irrigated with Saline Saline -Foul Odor after Cleansing No No -Bioengineered Tissue No -Bleeding Controlled with Pressure Pressure -Offloading No No -Treatment Response Procedure Procedure Tolerated Well Tolerated Well #2 L Foot Dorsal -Time 11:53 09:30 -Correct Patient Yes Yes -Correct Side, Site, Position Yes Yes -Correct Procedure Yes Yes -Procedure Performed Yes Yes -Type of Procedure Debridement Debridement -Clinical Debridement Subcutaneous Subcutaneous -Post Debridement Size (cm) - Length 2.0 1.8 -Post Debridement Size (cm) - Width 1.5 1.5 -Post Debridement Size (cm) - Depth 0.5 0.3 -Total Square Cm 3.00 2.70 -Wound/Ulcer Outcome Not Healed Not Healed -Ulcer Cleansing Rinsed/ Rinsed/ Irrigated with Irrigated with Saline Saline -Foul Odor after Cleansing No No -Bioengineered Tissue No No -Bleeding Controlled with Pressure Pressure -Offloading No No -Treatment Response Procedure Procedure Tolerated Well Tolerated Well Pain Scale: 0-10 Numeric Is Patient Pain Free? Yes Yes Wound debrided: Left foot Wound Grade/Stage: Stage III Type of Debridement: Excisional debridement Anesthesia Used: 4% Lidocaine Solution Depth: Down to and including healthy tissue, in the subcutaneous layer Percentage of wound debrided: 100 Instrument Used: 3mm curette Tissue Removed: Slough and devitalized tissue Severity: Fat Layer Exposed Amount of bleeding with debridement: Mild Bleeding Controlled with: Pressure Patient tolerated procedure well - Additional Wound Wound debrided: Right great toe Wound Grade/Stage: Stage II Type of Debridement: Excisional debridement Anesthesia Used: 4% Lidocaine Solution Depth: Down to and including healthy tissue, in the subcutaneous layer Percentage of wound debrided: 100 Instrument Used: 3mm curette Tissue Removed: Slough and devitalized tissue Severity: Fat Layer Exposed Amount of bleeding with debridement: Mild Bleeding Controlled with: Pressure Patient tolerated procedure: Patient tolerated procedure well Assessment/Plan Active Problems (Last Reviewed 07/16/18 @ 14:10 by Vicky Arzate NP-C) Chronic ulcer of right great toe with fat layer exposed (Chronic) Traumatic ulcer of left foot with fat layer exposed (Acute) Assessment: Traumatic ulcer of the left dorsal foot and chronic right great toe ulcer in a patient with poorly controlled diabetes mellitus. Plan: Debridement of both ulcers done as documented above. Procedure was well-tolerated. Continue snap VAC to the left dorsal foot. Follow-up on Friday for a nurse visit for change. Continue Promogran with Adaptic over top to the right great toe. Change daily. Elevate lower extremities when sitting in bed. SurePress for edema management. Increased protein intake recommended. Optimal blood sugar control also strongly recommended. She was advised to follow-up with her PCP to adjust her insulin. All her questions were answered and she was advised to call with any further questions or concerns. Follow-up in 1 week. This note was generated with [employer] dictation software. It may contain incorrect words, spelling, and punctuation that were not noted in checking the note before signing.
--- NOTE | 2018-08-27 09:53 | PN.PCM_ITS ---
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 Status: Chronic Current Visit: Yes Code(s): L97.512 - Non-pressure chronic ulcer of other part of right foot with fat layer exposed (2) Traumatic ulcer of left foot with fat layer exposed Status: Acute Current Visit: Yes Code(s): L97.522 - Non-pressure chronic ulcer of other part of left foot with fat layer exposed (3) Atrial fibrillation Status: Chronic Current Visit: No Qualifiers: Code(s): I48.91 - Unspecified atrial fibrillation (4) CAD (coronary artery disease) Status: Chronic Current Visit: No Code(s): I25.10 - Atherosclerotic heart disease of [place] coronary artery without angina pectoris (5) Chronic diastolic heart failure Status: Chronic Current Visit: No Code(s): I50.32 - Chronic diastolic (congestive) heart failure (6) Diabetes mellitus type II, uncontrolled Status: Chronic Current Visit: No Code(s): E11.65 - Type 2 diabetes mellitus with hyperglycemia Type of Wound Chief Complaint: Traumatic ulceration of left foot and chronic right great toe ulcer. History of Wound: Ms. Rothman is a 78-year-old who was referred to the wound center by her storyboard artist for continued wound care. She has a chronic right great toe ulcer which she has been managing conservatively at home for about 6 months. However, she presented to a storyboard artist due to left foot ulcer. She had a bowel drop on her foot about 3 weeks ago. She subsequently developed discoloration and swelling for which she was seen in the emergency room. Imaging done at that time was without any significant abnormality. Plan was to conservatively manage. However about a week ago. She noted an opening over the area with associated drainage/discharge. She was seen by her storyboard artist and vacuum therapy was recommended. She reports a history of diabetes which is not well controlled. Last A1c per patient was around 9. She is currently on insulin. Progress of Wound: Improving. Has had no problems with snap VAC so far. - Physical Exam Vital Signs Temp Pulse Resp BP 97.1 F L 67 16 127/43 H 08/27/18 09:01 08/27/18 09:01 08/27/18 09:01 08/27/18 09:01 General: Alert, Oriented x3, Cooperative, No apparent distress HEENT: Atraumatic, Normocephalic Oral: Moist Mucosa Neck: Supple Lungs: Normal air movement Extremities: No cyanosis Skin: Ulcer/ Wound Wound Measurements and Assessment WC - Nurse 1 - General Ulcer Measurement Start: 08/20/18 10:42 Freq: Status: Active Protocol: Activity Type Activity Date Activity User E-Sign Co-Sign Detail Recorded Client Recorded Date Recorded By Document 08/24/18 11:39 [facility] [id number] 08/24/18 11:50 BM Document 08/27/18 09:01 [facility] [id number] 08/27/18 09:19 BMF 08/24/18 08/27/18 11:39 09:01 [Ulcer Assessment] #3 R Grt Toe Plantar -Combined with other wound No -Current Size (cm) - Length 0.2 -Current Size (cm) - Width 0.2 -Current Size (cm) - Depth 0.3 -Total Square Cm 0.04 -Photo Taken No -Epithelialization None Present -Tunneling No -Undermining/Tunneling Yes -Undermining/Tunneling Starts (O' 11 clock) -Undermining/Tunneling Ends (O'clock) 2 -Maximum Distance (cm) 0.2 -Circular Undermining No -Exudate Amt Small -Exudate Type Sanguineous -Wound Margin Flat & Intact -Granulation Amt None Present (0 %) -Slough/Fibrin Yes -Necrosis Amt Large (67-100%) -Necrotic Tissue Type Adherent Slough -Texture (Amy-wound Skin Appearance) Callus Scarring -Moisture (Amy-wound Skin Appearance Dry/Scaly ) -Color (Amy-wound Skin Appearance) Assessed -Temperature (Amy-wound Skin No Abnormality Appearance) (Pt Warm) -Tenderness on Palpation (Amy-wound No Skin Appearance) -Ulcer Cleansing Wound Cleanser -Foul Odor after Cleansing No -Anesthetic Used 5% Lidocaine Gel #2 L Foot Dorsal -Combined with other wound No -Current Size (cm) - Length 1.8 -Current Size (cm) - Width 1.3 -Current Size (cm) - Depth 0.4 -Total Square Cm 2.34 -Photo Taken No -Epithelialization None Present -Tunneling No -Undermining/Tunneling No -Circular Undermining No -Exudate Amt Medium -Exudate Type Serosanguineous -Wound Margin Thickened & Rolled Under -Granulation Amt Small (1-33%) -Granulation Quality [place] -Slough/Fibrin Yes -Necrosis Amt Large (67-100%) -Necrotic Tissue Type Adherent Slough -Texture (Amy-wound Skin Appearance) Scarring -Moisture (Amy-wound Skin Appearance Maceration ) Dry/Scaly -Color (Amy-wound Skin Appearance) Erythema Palor -Temperature (Amy-wound Skin No Abnormality Appearance) (Pt Warm) -Tenderness on Palpation (Amy-wound No Skin Appearance) -Ulcer Cleansing Wound Cleanser -Foul Odor after Cleansing No -Anesthetic Used 5% Lidocaine Gel Wound Center Nurse 1 [Edema Assessment] -Lower Limb Edema Present Yes Yes -Left Calf (cm) 32.7 33.3 -Left Ankle (cm) 20.6 20.5 WC - Nurse 2 - General Ulcer CM Notes Start: 08/20/18 10:42 Freq: Status: Active Protocol: Activity Type Activity Date Activity User E-Sign Co-Sign Detail Recorded Client Recorded Date Recorded By Document 08/27/18 09:27 MW [id number] 08/27/18 09:34 MW 08/27/18 09:27 Wound Center Nurse 2 [Procedure/Treatment] #3 R Grt Toe Plantar -Time 09:28 -Correct Patient Yes -Correct Side, Site, Position Yes -Correct Procedure Yes -Procedure Performed Yes -Type of Procedure Debridement -Clinical Debridement Subcutaneous -Post Debridement Size (cm) - Length 0.3 -Post Debridement Size (cm) - Width 0.3 -Post Debridement Size (cm) - Depth 0.1 -Total Square Cm 0.09 -Wound/Ulcer Outcome Not Healed -Ulcer Cleansing Rinsed/ Irrigated with Saline -Foul Odor after Cleansing No -Bleeding Controlled with Pressure -Offloading No -Treatment Response Procedure Tolerated Well #2 L Foot Dorsal -Time 09:30 -Correct Patient Yes -Correct Side, Site, Position Yes -Correct Procedure Yes -Procedure Performed Yes -Type of Procedure Debridement -Clinical Debridement Subcutaneous -Post Debridement Size (cm) - Length 1.8 -Post Debridement Size (cm) - Width 1.5 -Post Debridement Size (cm) - Depth 0.3 -Total Square Cm 2.70 -Wound/Ulcer Outcome Not Healed -Ulcer Cleansing Rinsed/ Irrigated with Saline -Foul Odor after Cleansing No -Bioengineered Tissue No -Bleeding Controlled with Pressure -Offloading No -Treatment Response Procedure Tolerated Well [See Physician Procedure note for Specifics] Pain Scale: 0-10 Numeric [Pain] -Is Patient Pain Free? Yes Musculoskeletal: No Muscle Wasting Neurological: Cranial nerves II-XII grossly intact Psych/Mental Status: Normal Affect Debridement Note Post-Debridement Measurements/Treatment WC - Nurse 2 - General Ulcer CM Notes Start: 08/20/18 10:42 Freq: Status: Active Protocol: Activity Type Activity Date Activity User E-Sign Co-Sign Detail Recorded Client Recorded Date Recorded By Document 08/20/18 11:53 MW [id number] 08/20/18 12:07 MW Document 08/27/18 09:27 MW [id number] 08/27/18 09:34 MW 08/20/18 08/27/18 11:53 09:27 Wound Center Nurse 2 #3 R Grt Toe Plantar -Time 11:55 09:28 -Correct Patient Yes Yes -Correct Side, Site, Position Yes Yes -Correct Procedure Yes Yes -Procedure Performed Yes Yes -Type of Procedure Debridement Debridement -Clinical Debridement Subcutaneous Subcutaneous -Post Debridement Size (cm) - Length 0.4 0.3 -Post Debridement Size (cm) - Width 0.3 0.3 -Post Debridement Size (cm) - Depth 0.1 0.1 -Total Square Cm 0.12 0.09 -Wound/Ulcer Outcome Not Healed Not Healed -Ulcer Cleansing Rinsed/ Rinsed/ Irrigated with Irrigated with Saline Saline -Foul Odor after Cleansing No No -Bioengineered Tissue No -Bleeding Controlled with Pressure Pressure -Offloading No No -Treatment Response Procedure Procedure Tolerated Well Tolerated Well #2 L Foot Dorsal -Time 11:53 09:30 -Correct Patient Yes Yes -Correct Side, Site, Position Yes Yes -Correct Procedure Yes Yes -Procedure Performed Yes Yes -Type of Procedure Debridement Debridement -Clinical Debridement Subcutaneous Subcutaneous -Post Debridement Size (cm) - Length 2.0 1.8 -Post Debridement Size (cm) - Width 1.5 1.5 -Post Debridement Size (cm) - Depth 0.5 0.3 -Total Square Cm 3.00 2.70 -Wound/Ulcer Outcome Not Healed Not Healed -Ulcer Cleansing Rinsed/ Rinsed/ Irrigated with Irrigated with Saline Saline -Foul Odor after Cleansing No No -Bioengineered Tissue No No -Bleeding Controlled with Pressure Pressure -Offloading No No -Treatment Response Procedure Procedure Tolerated Well Tolerated Well Pain Scale: 0-10 Numeric Is Patient Pain Free? Yes Yes Wound debrided: Left foot Wound Grade/Stage: Stage III Type of Debridement: Excisional debridement Anesthesia Used: 4% Lidocaine Solution Depth: Down to and including healthy tissue, in the subcutaneous layer Percentage of wound debrided: 100 Instrument Used: 3mm curette Tissue Removed: Slough and devitalized tissue Severity: Fat Layer Exposed Amount of bleeding with debridement: Mild Bleeding Controlled with: Pressure Patient tolerated procedure well - Additional Wound Wound debrided: Right great toe Wound Grade/Stage: Stage II Type of Debridement: Excisional debridement Anesthesia Used: 4% Lidocaine Solution Depth: Down to and including healthy tissue, in the subcutaneous layer Percentage of wound debrided: 100 Instrument Used: 3mm curette Tissue Removed: Slough and devitalized tissue Severity: Fat Layer Exposed Amount of bleeding with debridement: Mild Bleeding Controlled with: Pressure Patient tolerated procedure: Patient tolerated procedure well Assessment/Plan Active Problems (Last Reviewed 07/16/18 @ 14:10 by Vicky Arzate NP-C) Chronic ulcer of right great toe with fat layer exposed (Chronic) Traumatic ulcer of left foot with fat layer exposed (Acute) Assessment: Traumatic ulcer of the left dorsal foot and chronic right great toe ulcer in a patient with poorly controlled diabetes mellitus. Plan: Debridement of both ulcers done as documented above. Procedure was well- tolerated. Continue snap VAC to the left dorsal foot. Follow-up on Friday for a nurse visit for change. Continue Promogran with Adaptic over top to the right great toe. Change daily. Elevate lower extremities when sitting in bed. SurePress for edema management. Increased protein intake recommended. Optimal blood sugar control also strongly recommended. She was advised to follow-up with her PCP to adjust her insulin. All her questions were answered and she was advised to call with any further questions or concerns. Follow-up in 1 week. This note was generated with [employer] dictation software. It may contain incorrect words, spelling, and punctuation that were not noted in checking the note before signing.
== END 2018-08-27 23:59 ==
LOC: WC 09:00
PROVIDERS: Family Provider Internal Medicine; PCP Internal Medicine; Visit Provider Internal Medicine
DX: E11.621 Type 2 diabetes mellitus with foot ulcer (principal); E11.65 Type 2 diabetes mellitus with hyperglycemia; I25.10 Atherosclerotic heart disease of native coronary artery without angina pectoris; I50.32 Chronic diastolic (congestive) heart failure; I48.2 Chronic atrial fibrillation; L97.522 Non-pressure chronic ulcer of other part of left foot with fat layer exposed; L97.512 Non-pressure chronic ulcer of other part of right foot with fat layer exposed; Z95.1 Presence of aortocoronary bypass graft; I48.0 Paroxysmal atrial fibrillation; Z95.2 Presence of prosthetic heart valve; E78.5 Hyperlipidemia, unspecified; G47.33 Obstructive sleep apnea (adult) (pediatric); I13.0 Hypertensive heart and chronic kidney disease with heart failure and stage 1 through stage 4 chronic kidney disease, or unspecified chronic kidney disease; N18.9 Chronic kidney disease, unspecified; E11.22 Type 2 diabetes mellitus with diabetic chronic kidney disease; Z79.4 Long term (current) use of insulin; Z79.82 Long term (current) use of aspirin; Z79.899 Other long term (current) drug therapy; Z79.01 Long term (current) use of anticoagulants
CPT/HCPCS: 11042; 97607; 99213; G0463

== ENCOUNTER 2018-09-14 16:42 | Inpatient (IN) | payer MEDICARE, SELFPAY ==
[2018-09-10 09:19] VITALS: BMI 29.6
[2018-09-14] VITALS (10 sets, daily range): BP systolic 156–181; BP diastolic 51–79; PULSE 62–71; RESP 12–28; TEMP 36.6–36.8; O2SAT 93–99; BMI 30.4; BMI 30.9
--- NOTE | 2018-09-14 17:03 | EKG12_ITS ---
Test Reason : SOB Blood Pressure : / mmHG Vent. Rate : 064 BPM Atrial Rate : 064 BPM P-R Int : 208 ms QRS Dur : 090 ms QT Int : 484 ms P-R-T Axes : 077 130 125 degrees QTc Int : 499 ms Normal sinus rhythm Right axis deviation RSR' or QR pattern in V1 suggests right ventricular conduction delay Nonspecific ST and T wave abnormality Prolonged QT Abnormal ECG Confirmed by SAJAN IZAGUIRRE, KENDRICK ([id number]), research editor ASUNCION BROWNLEE ([id number]) on 09/16/2018 9:55:02 AM Referred By: Confirmed By:KENDRICK MOELLER MD
--- NOTE | 2018-09-14 17:05 | RAD_ITS ---
STUDY: X-RAY CHEST REASON FOR EXAM: Female, 78 years old. Chest pain TECHNIQUE: Frontal view of the chest COMPARISON: 06/22/2018 FINDINGS: The lungs are clear. There are no pleural effusions. There is no pneumothorax. The heart is enlarged, but stable in size. There are stable postsurgical changes from prior sternotomy and valve repair. The visualized osseous structures are within normal limits. RAD/Chest 1 View (Portable) IMPRESSION: No acute thoracic pathology. Electronically Signed: Kole Rader, at 17:19 EST Tel , Service support ,
[2018-09-14 17:34] LABS: Absolute Lymphocyte Count 0.56 X10^3/ul (0.83-4.51); Basophil# 0.01 X10^3/uL; Basophil% 0.1 % (0-1); Differential Indicated SCAN CRITERIA MET; Eosinophil# 0.01 X10^3/uL; Eosinophils% 0.1 % (0-5); Hematocrit 34.9 % (37-47); Hemoglobin 10.6 g/dl (12.0-15.0); Lymphocyte # 0.56 X10^3/ul (4.0); Lymphocyte % 7.3 % (19-41); Mean Corp Hgb Conc 30.4 g/gl (32-36); Mean Corpuscular Hgb 25.4 pg (27.0-32.0); Mean Corpuscular Volume 83.5 fL (81-99); Mean Platelet Vol. 9.7 fl (6.2-12.0); Monocyte# 0.09 X10^3/uL; Monocyte% 1.2 % (0-10); Neutrophil # 6.99 X10^3/uL (2.7-7.7); Neutrophil % 90.9 % (47-70); POSITIVE COUNT NO; POSITIVE DIFFERENTIAL YES; POSITIVE MORPHOLOGY NO; Platelet Count 223 K/mm3 (150-450); RBC Distribution Width CV 15.8 % (11.6-14.6); RBC Distribution Width SD 47.6 fl (35.1-43.9); Red Blood Count 4.18 M/mm3 (4.2-5.4); White Blood Count 7.7 K/mm3 (4.4-11.0)
[2018-09-14 17:41] LABS: International Normalized Ratio 3.4; Prothrombin Time (Protime)PT. 34.5 SECONDS (11.7-14.9)
[2018-09-14 17:48] LABS: Anion Gap 8 (5-15); BUN 29 mg/dL (7-18); BUN/Creat Ratio 16.2 RATIO (10-20); Calcium,Total 8.7 mg/dL (8.5-10.1); Chloride 96 mmol/L (98-107); Creatinine, Serum 1.79 mg/dL (0.55-1.02); EST Glomerular Filtration Rate 29 mL/min (>60); Est Glom Filt Rate - Afr Amer 35 mL/min (>60); Estimated Creatinine Clearance 21.77 ml/min; Glucose 402 mg/dL (74-106); Potassium 4.1 mmol/L (3.5-5.1); Sodium Level 134 mmol/L (136-145)
[2018-09-14 18:03] LABS: BNP,B-Type NATRIURETIC PEPTIDE 880.3 pg/mL (0-100)
[2018-09-14] MEDS: Albuterol 2.5 MG/3 ML VIAL.NEB. INHALATION ×2 (18:48)
[2018-09-14] MEDS: Ipratropium/Albuterol Sulfate 3 ML AMPUL.NEB INHALATION ×2 (18:48→22:55)
[2018-09-14] MEDS: Furosemide 40 MG/4 ML Vial IV (18:50)
[2018-09-14] MEDS: MethylPREDNISolone 125 MG/2 ML Vial IV (19:00)
--- NOTE | 2018-09-14 19:39 | ED.VISSUMM ---
- ER Visit Summary Date of Service: 09/14/18 Chief Complaint: Shortness of breath History of Present Illness: The patient is a 78 F with increasing shortness of breath and cough for the past 1 week. She states she is been unable to lie down flat. She is a frequent dry cough. Her legs have been more swollen than normal. She was admitted in late May with CHF with similar symptoms. She also had significant wheezing at that time. Patient states she took an extra dose of her Lasix last night and used her inhaler with no improvement. She has not noted a change in her urine output with the extra Lasix. Past history significant for prior stroke, coronary disease, CHF, COPD, high cholesterol, hypertension, diabetes, paroxysmal A. fib. She is chronic renal failure. She is on home oxygen at 2 L. Physical Examination: Blood pressure is 161/72, temperature 97.9, heart rate 71, respiratory rate 19, pulse ox 96% on room air. Patient is sitting upright in bed. She is speaking full sentences. She does have frequent dry cough. Head neck examination is unremarkable. Heart is regular rate and rhythm. Lungs sounds are slightly diminished at the bases. I do not hear crackles. Abdomen is soft nontender. Lower extremity examination reveals 3+ edema distal to the knees. She has a portable wound VAC on her left lower leg with dressing in place. This was just changed today. Test Results: EKG is sinus at [address] change in V6. Chest x-ray shows no acute pathology. CBC was normal white count but 90% neutrophils noted. Hemoglobin is 10.6. Chemistry studies significant for glucose of 402, BUN 29, creatinine 1.79. INR is 3.4. BNP is 880. Troponin is 0.015. Emergency Department Course and Treatment: I did review records from recent admission. Patient does have a history of diastolic heart failure. She was treated with IV Lasix on her last admission. Echocardiogram from May 2018 showed an EF of 65%. I ordered a dose of IV Lasix. Nursing staff came to me and stated the patient was having significantly worsened breathing. Presented to bedside and patient was having tight inspiratory and expiratory wheezes throughout all lung garcia. She was given a DuoNeb treatment +2 albuterol treatments. She was given IV Solu-Medrol. Symptoms improved but she continued to have tight end expiratory wheeze. She was placed on BiPAP for short time. At this time patient is back to 2 L nasal cannula with scant expiratory wheezes noted. Treatment Plan: [] Disposition: Admit Impression: 1. CHF 2. COPD This note was generated with [employer] dictation software. It may contain incorrect words, spelling, and punctuation that were not noted in review of the chart prior to signing ED Disposition - Plan for ED Patient:
--- NOTE | 2018-09-14 19:41 | HP.PCM_ITS ---
Problem List (1) COPD exacerbation Status: Acute (2) Heart failure Status: Acute History of Present Illness Date of Admission: 09/14/18 Chief Complaint: shortness of breath The patient is a 78 year old F with a significant history of CAD status post CABG and coronary stents ; hypothyroidism; and diabetes mellitus who presented with 1 week history of progressively worsening shortness of breath at rest. Her shortness of breath increases with mild exertion to the point that she feels she is going to pass out. Associated with her symptoms is wheezing; nonproductive cough; paroxysmal nocturnal dyspnea and orthopnea. Because of shortness of breath she sleeps in a recliner. She was at a wound clinic today and because of her shortness of breath she was advised to call her doctor. She called her emergency department rn, and she was advised to come to the emergency department. Because of her shortness of breath patient took an extra dose of Lasix at home. Also she tried a breathing treatment at home without any relief. At the emergency department patient was put on a BiPAP because she was coughing profusely that BiPAP was discontinued. Emergency department doctor reported that the patient's lungs was diminished and she has some wheezes. Patient received Solu-Medrol and Lasix at the emergency department. At the emergency department had BNP was 880.3. Past Medical History Past Medical History (Chronic Problems): Chronic Problems (Last Reviewed 09/15/18 @ 01:45 by Jordan Fischer MD) Chronic ulcer of right great toe with fat layer exposed (Chronic) Traumatic ulcer of left foot with fat layer exposed (Chronic) Peripheral arterial disease (Chronic) CAD (coronary artery disease) (Chronic) S/P PTCA (percutaneous transluminal coronary angioplasty) (Chronic) S/P CABG x 1 (Chronic) S/P left atrial appendage ligation (Chronic) Atherosclerosis of coronary artery bypass graft without angina pectoris (Chronic) Postsurgical percutaneous transluminal coronary angioplasty (PTCA) status (Chronic) PTCA of LAD ; Paroxysmal atrial fibrillation (Chronic) Depression (Chronic) custodial (current) use of anticoagulants (Chronic) Bradycardia (Chronic) S/P CABG x 1 (Chronic 09/29/14) 09/29/2014 CABG: SVG to distal LAD [facility] per Dr. Miller 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 Angela Alexis History of mitral valve replacement with bioprosthetic valve (Chronic 09/29/14) 09/29/2014: MVR with 27 mm Medtronic tisue valve per Dr. Angela Alexis Atrial fibrillation (Chronic) Hyperlipidemia (Chronic) Hypertension (Chronic) resistant HTN Cerebrovascular disease (Chronic) ischemic stroke w hemorrhagic transformation in the setting of coumadin anticoagulation Anemia (Chronic) CRF (chronic renal failure) (Chronic) Anticoagulation goal of INR 2 to 3 (Chronic) Diabetes mellitus type II, uncontrolled (Chronic) Stroke with left visual deficit (Chronic) Chronic diastolic heart failure (Chronic) Pulmonary hypertension (Chronic) MAGALI (obstructive sleep apnea) (Chronic) on CPAP Medical History: Medical History (Last Reviewed 09/15/18 @ 01:45 by Jordan Fischer MD) Atherosclerosis of coronary artery bypass graft without angina pectoris (Chronic) I25.810 Subdural bleeding (Acute) I62.00 Mitral stenosis (Acute) I05.0 Paroxysmal atrial fibrillation (Chronic) I48.0 Depression (Chronic) F32.9 Dermatitis of lower extremity (Acute) L30.9 Bradycardia (Chronic) R00.1 Syncope (Acute) R55 Atrial fibrillation (Chronic) I48.91 Hyperlipidemia (Chronic) E78.5 Hypertension (Chronic) I10 resistant HTN Cerebrovascular disease (Chronic) I67.9 ischemic stroke w hemorrhagic transformation in the setting of coumadin anticoagulation Anemia (Chronic) D64.9 CRF (chronic renal failure) (Chronic) N18.9 Anticoagulation goal of INR 2 to 3 (Chronic) Z51.81, Z79.01 Diabetes mellitus type II, uncontrolled (Chronic) E11.65 Edema of both legs (Acute) R60.0 Type 2 diabetes mellitus without complications (Acute) E11.9 Syncope (Acute) R55 Possible TIA/stroke (Acute) Stroke with left visual deficit (Chronic) Chronic diastolic heart failure (Chronic) I50.32 Pulmonary hypertension (Chronic) I27.20 MAGALI (obstructive sleep apnea) (Chronic) G47.33 on CPAP Dyspnea on exertion R06.09 Edema R60.9 Pulmonary hypertension, moderate to severe I27.20 Shortness of breath R06.02 Allergies dronedarone [From Multaq] Allergy (Severe, Verified 09/14/18 16:46) difficulty breathing dronedarone HCl [From Multaq] Allergy (Verified 09/14/18 16:46) Other unable to breath quinapril [From Accupril] Adverse Reaction (Severe, Verified 09/14/18 16:46) near syncope cortisone Adverse Reaction (Intermediate, Verified 09/14/18 16:46) swelling hydralazine Adverse Reaction (Intermediate, Verified 09/14/18 16:46) weakness Beta-Blockers (Beta-Adrenergic Bloc Adverse Reaction (Verified 09/14/18 16:46) Other WHEEZING, shaking, passes out prednisone Adverse Reaction (Verified 09/14/18 16:46) Swelling CARDURA Allergy (Uncoded 09/14/18 16:46) Other PT NOT SURE- POSSIBLE SWELLING NORVASC Allergy (Uncoded 09/14/18 16:46) Swelling SCALLOPS Allergy (Uncoded 09/14/18 16:46) Swelling SULFA Allergy (Uncoded 09/14/18 16:46) Other SPOTS IN MOUTH/SORE MOUTH ATIVAN Adverse Reaction (Uncoded 09/14/18 16:46) Other HALLUCINATIONS METATOPOLOL TARTATE Adverse Reaction (Uncoded 09/14/18 16:46) Other Home Medications: Ambulatory Orders Medication Instructions Recorded Insulin Aspart [Novolog Flexpen] 10 units SC TIDCM 09/20/14 Albuterol Inhaler [Ventolin Hfa] 2 puff INHALATION Q4H PRN PRN #1 10/27/14 inhaler Calcitriol [Rocaltrol] 0.25 mcg PO MOWEFR 01/16/17 Aspirin E.C. [Ecotrin] 81 mg PO QHS 01/07/18 Albuterol Aerosols [Ventolin 3 ml INHALATION BID 06/22/18 Aerosols] Amiodarone HCl 100 mg PO DAILY 06/22/18 Multivit-Min/Iron/Folic/Lutein 1 tab PO DAILY 06/22/18 [Centrum Silver Women Tablet] Insulin Glargine [Lantus SoloStar 50 units SUBCUT BREAKFAST 07/22/18 Pen] Warfarin Sodium 3 mg PO SUTUWETHFRSA 07/22/18 levothyroxine 88 mcg tablet 88 mcg PO DAILY 30 Days #90 tab 07/27/18 prednisone 10 mg tablet 10 mg PO .COMPLEX #40 tab 07/27/18 lisinopril 40 mg tablet 40 mg PO DAILY 08/13/18 Furosemide [Lasix] 20 mg PO BIDLX 09/14/18 Warfarin [Coumadin ([facility])] 2 mg PO MO 09/14/18 Surgical History: Surgical History (Last Reviewed 09/14/18 @ 20:45 by Jordan Fischer MD) Postsurgical percutaneous transluminal coronary angioplasty (PTCA) status (Chronic) Z98.61 PTCA of LAD ; S/P CABG x 1 (Chronic) Onset Date: 09/29/14 Z95.1 09/29/2014 CABG: SVG to distal LAD [facility] per Dr. Miller History of maze procedure (Chronic) Onset Date: 09/29/14 Z98.890 09/29/2014 atricure pulmonary vein isolation MAZE with ligation of left atrial appendage per Dr. Angela Alexis History of mitral valve replacement with bioprosthetic valve (Chronic) Onset Date: 09/29/14 Z95.3 09/29/2014: MVR with 27 mm Medtronic tisue valve per Dr. Angela Alexis History of PTCA Z98.61 angioplasty with moderate in-stent stenosis of the proximal LAD History of hysterectomy Z90.710 Surgical History: angioplasty, cataract, - Smoking Status: Never smoker - *Family History Maternal Family History: Family History (Last Reviewed 09/14/18 @ 20:45 by Jordan Fischer MD) Father CAD (coronary artery disease) Hypertension Myocardial infarction Sudden cardiac Hyperlipidemia Mother Breast cancer Brother Cancer Sister Breast cancer Hyperlipidemia Sister Hyperlipidemia History Items: Cancer Paternal Family History: Family History (Last Reviewed 09/14/18 @ 20:45 by Jordan Fischer MD) Father CAD (coronary artery disease) Hypertension Myocardial infarction Sudden cardiac Hyperlipidemia Mother Breast cancer Brother Cancer Sister Breast cancer Hyperlipidemia Sister Hyperlipidemia History Items: Heart Disease, Stroke Sibling Family History: Family History (Last Reviewed 09/14/18 @ 20:45 by Jordan Fischer MD) Father CAD (coronary artery disease) Hypertension Myocardial infarction Sudden cardiac Hyperlipidemia Mother Breast cancer Brother Cancer Sister Breast cancer Hyperlipidemia Sister Hyperlipidemia History Items: Cancer - in brother and sister Review of Systems Constitutional: Reports: Anorexia, Malaise, Weakness, Fatigue. Denies: Chills, Fever HEENT: Denies: Head Aches, Sinus Congestion, Sinus Drainage Cardiovascular: Reports: Orthopnea, Paroxysmal Noc. Dyspnea. Denies: Chest Pain, Palpitations Respiratory: Reports: Cough. Denies: Shortness of breath at rest, Sputum production Gastrointestinal: Reports: Abdominal Pain - epigastric, Constipation. Denies: Nausea, Vomiting Genitourinary: Denies: Dysuria Musculoskeletal: Denies: Joint Pain, Joint Tenderness Skin: Denies: Rash, Wounds Neurological: Denies: Numbness, Tingling, Focal weakness Psychiatric: Denies: Anxiety, Depression, Homicidal Ideations, Suicidal Ideations Hematologic/ Lymphatic: Denies: Easy Bruising, Easy Bleeding VTE Information - Inpt Only VTE Present on Admission: No VTE Mechan Device Prophylaxis: None VTE Pharm Prophylaxis ordered?: No Reason prophylaxis not ordered:: Treatment Not Indicated - On Coumadin for A. fib Coumadin continued. Patient Problems: Active and Suspected Problems (Last Reviewed 09/15/18 @ 01:45 by Jordan Fischer MD) Heart failure (Acute) - Physical Exam General: Alert, Oriented x3, Cooperative HEENT: Atraumatic, PERRLA, EOMI, Normocephalic Neck: Supple, No JVD, Negative Carotid Bruits Lungs: Diminished, Wheezes Cardiovascular: Regular rate, No murmurs Abdomen: Bowel Sounds Present, Soft, Non Tender Extremities: No edema, Capillary Refill Less than 3 Seconds Skin: No rashes, No breakdown, - - Ulcer at plantar side of right big toe; wound VAC apparatus at wound on left dorsal foot. Musculoskeletal: No Muscle Wasting Neurological: Neuro grossly intact Psych/Mental Status: Normal Affect, Appropriate Vital Signs Temp Pulse Resp BP Pulse Ox 97.9 F 67 26 H 156/59 H 98 09/14/18 16:43 09/14/18 19:03 09/14/18 19:03 09/14/18 19:03 09/14/18 19:03 Oxygen Flow Rate (L/min) 4 Oxygen Delivery Method Nasal Cannula Weight: 78.018 kg Body Mass Index (BMI) 30.4 Finger Stick Blood Glucose 257 Laboratory Tests Past 24 Hrs 09/14/18 09/14/18 09/14/18 17:20 17:20 17:20 WBC 7.7 RBC 4.18 L Hgb 10.6 L Hct 34.9 L MCV 83.5 MCH 25.4 L MCHC 30.4 L RDW 15.8 H RDW Differential 47.6 H Plt Count 223 MPV 9.7 Immature Gran % (Auto) 0.400 Neut % (Auto) 90.9 H Lymph % (Auto) 7.3 L [place] % (Auto) 1.2 Eos % (Auto) 0.1 Baso % (Auto) 0.1 Absolute Neuts (auto) 7.0 Absolute Lymphs (auto) 0.56 L Total Counted Not Reportable Differential Comment PT 34.5 H INR 3.4 Sodium 134 L Potassium 4.1 Chloride 96 L Carbon Dioxide 30.0 Anion Gap 8 BUN 29 H Creatinine 1.79 H Estim Creat Clear Calc 21.77 Est GFR (MDRD) Af Amer 35 L Est GFR (MDRD) Non-Af 29 L BUN/Creatinine Ratio 16.2 Glucose 402 H Calcium 8.7 Troponin I 0.015 B-Natriuretic Peptide 09/14/18 17:20 WBC RBC Hgb Hct MCV MCH MCHC RDW RDW Differential Plt Count MPV Immature Gran % (Auto) Neut % (Auto) Lymph % (Auto) [place] % (Auto) Eos % (Auto) Baso % (Auto) Absolute Neuts (auto) Absolute Lymphs (auto) Total Counted Differential Comment PT INR Sodium Potassium Chloride Carbon Dioxide Anion Gap BUN Creatinine Estim Creat Clear Calc Est GFR (MDRD) Af Amer Est GFR (MDRD) Non-Af BUN/Creatinine Ratio Glucose Calcium Troponin I B-Natriuretic Peptide 880.3 H Assessment/Plan All Active Problems (Last Reviewed 09/15/18 @ 01:45 by Jordan Fischer MD) Heart failure (Acute) COPD exacerbation (Acute) Acute on chronic combined systolic and diastolic CHF, NYHA class 2 (Acute) Subdural bleeding (Acute) Mitral stenosis (Acute) Encounter for long-term current use of high risk medication (Acute) Dermatitis of lower extremity (Acute) Syncope (Acute) Edema of both legs (Acute) Type 2 diabetes mellitus without complications (Acute) Syncope (Acute) Possible TIA/stroke (Acute) Hemorrhagic stroke (Resolved) UTI (urinary tract infection) (Resolved) The patient is a 78 year old F with a significant history of CAD status post CABG and coronary stents ; hypothyroidism; and diabetes mellitus who presented with 1 week history of progressively worsening shortness of breath consistent with likely COPD exacerbation and probable exacerbation of heart failure. Acute exacerbation of COPD CXR independently reviewed confirms cardiomegaly with no acute cardiothoracic process. Scheduled DuoNeb Albuterol as needed Received Solu-Medrol 125 mg at emergency department. Solu-medrol continued. Oxygen as needed Mucinex ordered. Monitor BMP Probable exacerbation of heart failure with preserved ejection fraction At the Emergency department her BNP was 880.3. Review of old records shows that her BNP has not been this high. BNP in May 2018 was 531.1. Review of old records shows that echocardiogram on 06/25/2018 depicted an ejection fraction of 65%. Stable appearing bioprosthetic mitral valve apparatus. Trivial transvalvular insufficiency of the mitral valve. Her right ventricular systolic blood pressure was estimated to be 72 mmHg. His symptoms probable is due to exacerbation of COPD and right-sided heart failure. Received Lasix 40mg IV emergency department. Lasix 40 mg IV twice daily ordered for now. Scheduled potassium supplementation. Fluid restriction OF 1500 ordered. Paroxysmal A. fib Patient in sinus rhythm on admission. On admission INR was 3.4. Hold home warfarin. Coumadin 2.5 mg ON 09/15/2017 Daily INR and dose Coumadin Diabetes mellitus On admission blood glucose was not within goal. Blood glucose was 402. Home basal insulin and prandial insulin continue. We will add correction scale q. before meals at bedtime and 3 AM. Hypertension On admission her blood pressure was not within goal. Lasix as above Clonidine prn Trend blood pressure and adjust blood pressure medication. Chronic wound of right big toe; and right foot Maintain dressing from wound clinic. wound care consult. Hyperthyroidism Synthroid continued TSH ordered DVT prophylaxis Not indicated patient on Coumadin Continue Coumadin. Code Visit Inpatient E&M: 39814 Init Hosp L3
--- NOTE | 2018-09-14 20:34 | ED.RN ---
REPORT CALLED TO SAMANTA PORTILLO IN ICU
[2018-09-14] MEDS: guaiFENesin 1,200 MG Tablet 1200 MG PO (22:17)
[2018-09-14] MEDS: Aspirin E.C. 81 MG Tablet PO (22:17)
[2018-09-14] MEDS: Insulin Lispro 100 UNIT/ML INSULN.PEN SQ (22:28)
[2018-09-14 22:36] LABS: Bedside Glucose 421 mg/dL (70-110)
[2018-09-14 23:01] LABS: Thyroid Stim Hormone (TSH) 1.03 uIU/mL (0.358-3.74)
[2018-09-15] VITALS (21 sets, daily range): BP systolic 133–158; BP diastolic 36–55; PULSE 61–74; RESP 15–25; TEMP 36.1–36.9; O2SAT 94–99
[2018-09-15] MEDS: Polyethylene Glycol 3350 17 GM PACKET PO (01:44)
[2018-09-15] MEDS: Insulin Lispro 100 UNIT/ML INSULN.PEN SQ ×5 (01:51→21:38)
[2018-09-15 01:56] LABS: Bedside Glucose 429 mg/dL (70-110)
[2018-09-15] MEDS: Ipratropium/Albuterol Sulfate 3 ML AMPUL.NEB INHALATION ×6 (02:18→23:21)
[2018-09-15 05:34] LABS: Anion Gap 11 (5-15); BUN 34 mg/dL (7-18); BUN/Creat Ratio 16.4 RATIO (10-20); Calcium,Total 8.7 mg/dL (8.5-10.1); Chloride 97 mmol/L (98-107); Creatinine, Serum 2.07 mg/dL (0.55-1.02); EST Glomerular Filtration Rate 25 mL/min (>60); Est Glom Filt Rate - Afr Amer 30 mL/min (>60); Estimated Creatinine Clearance 18.83 ml/min; Glucose 407 mg/dL (74-106); Potassium 3.8 mmol/L (3.5-5.1); Sodium Level 138 mmol/L (136-145)
[2018-09-15] MEDS: Levothyroxine 88 MCG Tablet PO (06:44)
[2018-09-15 06:56] LABS: Bedside Glucose 409 mg/dL (70-110)
--- NOTE | 2018-09-15 07:28 | PCM.PN.HOSP ---
Patient Problems: Active and Suspected Problems (Last Reviewed 09/15/18 @ 01:45 by Jordan Fischer MD) Heart failure (Acute) Subjective: Patient was seen and examined. She complains of persistent cough and feeling short of breath. She is on 2 L of oxygen; same as she is at home. Denies any fever or chills. Cough is unproductive. No other acute events overnight. Review of systems was negative except for the above Vitals/I&O's: Vital Signs Temp Pulse Resp BP Pulse Ox 98.3 F 61 20 H 135/44 H 99 09/15/18 05:17 09/15/18 06:55 09/15/18 06:55 09/15/18 05:17 09/15/18 06:55 Oxygen Flow Rate (L/min) 2 Oxygen Delivery Method Nasal Cannula Weight: 80.2 kg Body Mass Index (BMI) 30.9 Finger Stick Blood Glucose 257 Intake and Output for Last 24 Hours 09/13/18 09/14/18 09/15/18 23:59 23:59 23:59 Intake Total 120 / 120 120 / 120 Output Total 100 / 100 100 / 100 Balance General: Alert, Oriented x3, Cooperative, - - In mild respiratory distress with HEENT: Atraumatic, PERRLA, EOMI, Normocephalic Oral: Moist Mucosa - bouts of coughing, on 2 L of oxygen Neck: Supple, No JVD, Negative Carotid Bruits Lungs: Normal air movement, Diminished, Wheezes Cardiovascular: Regular rate, Regular Rhythm, Normal S1, Normal S2, No murmurs Abdomen: Bowel Sounds Present, Soft, Non Tender, Non-Distended, No Hepato-splenomegaly, Obese Extremities: Edema - Trace bilateral edema Skin: No breakdown Musculoskeletal: No Tenderness to Palpation of Joints or Extremities Lymphatic: No Cervical, Supraclavicular, or Inguinal Adenopathy Neurological: Cranial nerves II-XII grossly intact, Neuro grossly intact Psych/Mental Status: Normal Affect, Appropriate Laboratory Results 09/14/18 17:20: WBC 7.7, RBC 4.18 L, Hgb 10.6 L, Hct 34.9 L, MCV 83.5, MCH 25.4 L, MCHC 30.4 L, RDW 15.8 H, RDW Differential 47.6 H, Plt Count 223, MPV 9.7, Immature Gran % (Auto) 0.400, Neut % (Auto) 90.9 H, Lymph % (Auto) 7.3 L, [place] % (Auto) 1.2, Eos % (Auto) 0.1, Baso % (Auto) 0.1, Absolute Neuts (auto) 7.0, Absolute Lymphs (auto) 0.56 L, Total Counted Not Reportable, Differential Comment 09/14/18 17:20: PT 34.5 H, INR 3.4 09/14/18 17:20: Sodium 134 L, Potassium 4.1, Chloride 96 L, Carbon Dioxide 30.0, Anion Gap 8, BUN 29 H, Creatinine 1.79 H, Estim Creat Clear Calc 21.77, Est GFR (MDRD) Af Amer 35 L, Est GFR (MDRD) Non-Af 29 L, BUN/Creatinine Ratio 16.2, Glucose 402 H, Calcium 8.7, Troponin I 0.015 09/14/18 17:20: B-Natriuretic Peptide 880.3 H 09/14/18 22:21: POC Glucose 421 H 09/14/18 22:25: Troponin I 0.017, TSH 1.03 09/15/18 01:35: Troponin I 0.016 09/15/18 01:47: POC Glucose 429 H 09/15/18 04:50: Sodium 138, Potassium 3.8, Chloride 97 L, Carbon Dioxide 30.0, Anion Gap 11, BUN 34 H, Creatinine 2.07 H, Estim Creat Clear Calc 18.83, Est GFR (MDRD) Af Amer 30 L, Est GFR (MDRD) Non-Af 25 L, BUN/Creatinine Ratio 16.4, Glucose 407 H, Calcium 8.7 09/15/18 04:50: Troponin I 0.018 09/15/18 06:41: POC Glucose 409 H Current Medications Albuterol Sulfate (Ventolin Aerosols) 2.5 mg INHALATION Q2H PRN PRN PRN Reason: SHORTNESS OF BREATH Albuterol/Ipratropium (Duoneb) 3 ml INHALATION Q4H.RT [facility] Last Admin: 09/15/18 06:54 Dose: 3 ml Amiodarone HCl (Cordarone) 100 mg PO DAILY JOANNE Aspirin (Ecotrin) 81 mg PO QHS [facility] Last Admin: 09/14/18 22:17 Dose: 81 mg Calcitriol (Rocaltrol) 0.25 mcg PO MoWeFr@1000 JOANNE Clonidine (Catapres) 0.1 mg PO Q6H PRN PRN PRN Reason: sbp > 160 Dextrose (D50w Syringe) 0 gm IV X1 PRN; Protocol PRN Reason: Hypoglycemia Furosemide (Lasix) 40 mg IV BIDLX [facility] Glucagon () 1 mg IM .X1 PRN PRN Reason: Hypoglycemia Guaifenesin (Mucinex) 1,200 mg PO BID [facility] Last Admin: 09/14/18 22:17 Dose: 1,200 mg Sodium Chloride () 250 mls @ 15 mls/hr IV .[id number] PRN PRN Reason: SALINE FLUSH Insulin Glargine (Lantus (Bkc)) 50 units SC BREAKFAST [facility] Insulin Human Lispro (Humalog Kwikpen (Bkc)) 10 unit SC TIDCM JOANNE Insulin Human Lispro (Humalog Kwikpen (Bkc)) 0 unit SQ ACHS & 3AM JOANNE; Protocol Last Admin: 09/15/18 06:44 Dose: 10 units Levothyroxine Sodium (Synthroid) 88 mcg PO DAILY@0600 [facility] Last Admin: 09/15/18 06:44 Dose: 88 mcg Lisinopril (Zestril) 40 mg PO DAILY [facility] Methylprednisolone (Solu-Medrol) 40 mg IV Q8 [facility] Last Admin: 09/15/18 06:44 Dose: 40 mg Multivitamins/Minerals (Multivitamin With Minerals) 1 tablet PO DAILY@0800 [facility] Ondansetron HCl (Zofran) 4 mg IV Q8H PRN PRN PRN Reason: Nausea Potassium Chloride (K[facility]) [facility] Senna (Senokot) 1 tablet PO BID [facility] Sodium Chloride () 5 - 15 ml IV UD PRN PRN Reason: SALINE FLUSH Warfarin Sodium (Coumadin (Pbkc)) 2.5 mg PO X1 ONE Stop: 09/15/18 17:01 Medical Necessity - Tobacco Use Smoking Status: Never smoker Assessment/Plan All Active Problems (Last Reviewed 09/15/18 @ 01:45 by Jordan Fischer MD) Heart failure (Acute) COPD exacerbation (Acute) Acute on chronic combined systolic and diastolic CHF, NYHA class 2 (Acute) Subdural bleeding (Acute) Mitral stenosis (Acute) Encounter for long-term current use of high risk medication (Acute) Dermatitis of lower extremity (Acute) Syncope (Acute) Edema of both legs (Acute) Type 2 diabetes mellitus without complications (Acute) Syncope (Acute) Possible TIA/stroke (Acute) Hemorrhagic stroke (Resolved) UTI (urinary tract infection) (Resolved) 78-year-old female with past medical history of CAD status post CABG, s/p stents, hypertension, type II DM, hypothyroidism comes in with complaints of shortness of breath and nonproductive cough ongoing for 1 week. 1. Acute on chronic diastolic CHF/acute viral bronchitis in a known patient with underlying pulmonary hypertension, patient is on 2 L of oxygen at home No reported history of COPD. Admitting BNPep was 880. Recent 2D echo(06/25/18) shows EF of 65%, stable appearing bioprosthetic mitral valve apparatus, RVSP was 72mmHg. Respiratory panel is pending. Plan: Continue with breathing treatments, IV Lasix 40 twice daily, continue on strict I's and O's, CHF protocol, encourage use of incentive spirometer, encourage ambulation, continue on IV Solu-Medrol for now 2. Hypertension, controlled, continue on lisinopril, continue to monitor vitals 3. Type II DM, sugars are uncontrolled secondary to IV steroids, on Lantus, Lispro with insulin sliding scale, continue to monitor, will adjust swelling to better control blood sugar 4. CKD stage III, creatinine increased from 1.79-2.07 likely second to diuretic effect, will closely monitor Lasix and adjust if renal function continues to worsen 5. CAD status post CABG, status post stent, on aspirin, not on statins, not on beta-norma due to severe reaction 6. Hypothyroidism, on levothyroxine 7. Chronic leg ulcers, bilateral, status post vacuum therapy, follows with the wound clinic, wound nurse consulted 8. Paroxysmal atrial fibrillation, in normal sinus now, on amiodarone, Coumadin on hold on account of supratherapeutic INR 9. DVT prophylaxis-INR supratherapeutic, would also encourage ambulation Code Visit Inpatient E&M: 00442 Subs Hosp L2
[2018-09-15] MEDS: Insulin Lispro 100 UNIT/ML INSULN.PEN 10 UNIT SC ×3 (08:47→16:54)
[2018-09-15] MEDS: Amiodarone 200 MG Tablet 100 MG PO (08:51)
[2018-09-15] MEDS: Multivitamins,Ther W-Minerals Tablet 1 TABLET PO (08:51)
[2018-09-15] MEDS: Furosemide 40 MG/4 ML Vial IV ×2 (08:52→17:12)
[2018-09-15] MEDS: guaiFENesin 1,200 MG Tablet 1200 MG PO ×2 (08:52→21:39)
[2018-09-15] MEDS: Lisinopril 40 MG Tablet PO (08:53)
[2018-09-15] MEDS: Senna Tablet 1 TABLET PO ×2 (08:53→21:39)
--- NOTE | 2018-09-15 10:19 | NURSING ---
Wound RN, Liza, present in pt room
[2018-09-15 10:47] LABS: Prothrombin Time (Protime)PT. 41.4 SECONDS (11.7-14.9)
[2018-09-15 10:51] LABS: International Normalized Ratio 4.3
[2018-09-15 11:32] LABS: Bedside Glucose 388 mg/dL (70-110)
--- NOTE | 2018-09-15 13:24 | CASEMGMT ---
Addendum entered by Bri Garcia 09/15/18 13:28: LW/POA forms actually are in the echart, they were completed in 2018. SW printed and placed the forms on the paper chart. MAY Corona, BREWERY REPRESENTATIVE Original Note: When admitting RN spoke w/pt, she states she has LW/POA, has not brought in the documents but will do so. MAY Corona, BREWERY REPRESENTATIVE
--- NOTE | 2018-09-15 13:40 | CASEMGMT ---
RN CM Assessment Presentation: respiratory distress, worsening shortness of breath with mild exertion. Intro role of CM and purpose of RN CM assessment. Pt is sitting in chair and able to participate in RN CM Assessment. PCP: Dr. Moulton Preferred Pharmacy: [facility] Insurance: [facility] Medicare Prescription Benefit: yes LNOK: Chris Rothman Living Arrangements: Lives with in one story home with 3 steps into home. Transportation: self/ DME/HHC: walker, rollator cpap, nebulizer, oxygen concentrator, portability through [facility].. DC PLAN: Home on discharge. Declining Home Health at this time. Lionel BECKFORD RN ACM
--- NOTE | 2018-09-15 14:19 | NURSING ---
report called to VEHICLE SAFETY INSPECTOR
--- NOTE | 2018-09-15 14:25 | NURSING ---
wound photo: right great toe (plantar surface)
[2018-09-15] MEDS: 0.9% NaCl Peripheral Flush Adult/Peds IV ×3 (15:06→21:42)
--- NOTE | 2018-09-15 15:07 | NURSING ---
to PCU 115 per WC w/ICU staff in attendance
--- NOTE | 2018-09-15 16:16 | CHAPLAIN ---
Type of Pastoral Visit _x__ Initial Visit ___ Follow-up Visit ___ On-call Visit ___ General Patient Visit ___ Spiritual Assessment ___ Family Conference ___ Bereavement ___ Rapid Response ___ Code Blue ___ Other (describe below) Pastoral Care Referral From _x__ Patient ___ Family ___ Nurse ___ Physician ___ Production Leader ___ Certified Pharmacy Tech ___ Other (describe below) Sacrament/Intervention _x__ Active listening ___ Anointing ___ Sikh ___ Bereavement ___ Communion _x__ Sara exploration ___ ___ Life review _x__ Prayer ___ Reconciliation ___ Sacrament of Sick ___ Supportive presence ___ Wedding ___ Other (describe below) Pastoral Comments
[2018-09-15 17:06] LABS: Bedside Glucose 352 mg/dL (70-110)
[2018-09-15] MEDS: Aspirin E.C. 81 MG Tablet PO (21:37)
[2018-09-15 21:51] LABS: Bedside Glucose 408 mg/dL (70-110)
[2018-09-16] VITALS (14 sets, daily range): BP systolic 117–159; BP diastolic 53–69; PULSE 60–79; RESP 16–21; TEMP 36.4–37.1; O2SAT 94–100
[2018-09-16] MEDS: Insulin Lispro 100 UNIT/ML INSULN.PEN SQ ×5 (03:15→21:34)
[2018-09-16 03:22] LABS: Bedside Glucose 321 mg/dL (70-110)
[2018-09-16] MEDS: Levothyroxine 88 MCG Tablet PO (05:34)
[2018-09-16] MEDS: 0.9% NaCl Peripheral Flush Adult/Peds IV ×3 (05:34→10:00)
[2018-09-16 06:45] LABS: Absolute Lymphocyte Count 0.54 X10^3/ul (0.83-4.51); Absolute Neutrophil Count 30.5 X10^3/uL (2.0-7.7); Basophil# 0.01 X10^3/uL; Hematocrit 34.1 % (37-47); Hemoglobin 10.3 g/dl (12.0-15.0); Lymphocyte # 0.54 X10^3/ul (4.0); Lymphocyte % 1.7 % (19-41); Mean Corp Hgb Conc 30.2 g/gl (32-36); Mean Corpuscular Hgb 25.4 pg (27.0-32.0); Mean Platelet Vol. 10.6 fl (6.2-12.0); Monocyte# 0.45 X10^3/uL; Monocyte% 1.4 % (0-10); Neutrophil # 30.54 X10^3/uL (2.7-7.7); Neutrophil % 96.4 % (47-70); Platelet Count 279 K/mm3 (150-450); RBC Distribution Width CV 16.3 % (11.6-14.6); RBC Distribution Width SD 49.3 fl (35.1-43.9); Red Blood Count 4.06 M/mm3 (4.2-5.4)
[2018-09-16 06:46] LABS: Prothrombin Time (Protime)PT. 47.7 SECONDS (11.7-14.9)
[2018-09-16 06:48] LABS: International Normalized Ratio 5.1
[2018-09-16 06:49] LABS: Differential Indicated SCAN CRITERIA MET; POSITIVE COUNT YES; POSITIVE DIFFERENTIAL YES; POSITIVE MORPHOLOGY NO
[2018-09-16 06:56] LABS: Bedside Glucose 291 mg/dL (70-110)
[2018-09-16 07:01] LABS: BUN 63 mg/dL (7-18); Creatinine, Serum 2.47 mg/dL (0.55-1.02); EST Glomerular Filtration Rate 20 mL/min (>60); Estimated Creatinine Clearance 15.78 ml/min; Glucose 312 mg/dL (74-106)
[2018-09-16 07:02] LABS: Anion Gap 9 (5-15); BUN/Creat Ratio 25.5 RATIO (10-20); Calcium,Total 8.7 mg/dL (8.5-10.1); Chloride 98 mmol/L (98-107); Est Glom Filt Rate - Afr Amer 24 mL/min (>60); Sodium Level 134 mmol/L (136-145)
[2018-09-16] MEDS: Ipratropium/Albuterol Sulfate 3 ML AMPUL.NEB INHALATION ×3 (07:02→19:57)
[2018-09-16 07:27] LABS: White Blood Count 31.7 K/mm3 (4.4-11.0)
[2018-09-16] MEDS: Insulin Lispro 100 UNIT/ML INSULN.PEN 10 UNIT SC ×2 (08:33→12:08)
[2018-09-16] MEDS: Multivitamins,Ther W-Minerals Tablet 1 TABLET PO (08:33)
[2018-09-16 09:04] LABS: White Blood Count 30.4 K/mm3 (4.4-11.0)
[2018-09-16] MEDS: Calcitriol 0.25 MCG Capsule PO (10:00)
[2018-09-16] MEDS: Senna Tablet 1 TABLET PO ×2 (10:00→21:35)
[2018-09-16] MEDS: Amiodarone 200 MG Tablet 100 MG PO (10:00)
[2018-09-16] MEDS: Furosemide 40 MG/4 ML Vial IV (10:00)
[2018-09-16] MEDS: guaiFENesin 1,200 MG Tablet 1200 MG PO ×2 (10:00→21:35)
[2018-09-16] MEDS: Lisinopril 40 MG Tablet PO (10:00)
[2018-09-16 11:36] LABS: Bedside Glucose 429 mg/dL (70-110)
[2018-09-16 12:35] LABS: Pathologist Review Reviewed
--- NOTE | 2018-09-16 16:43 | PCM.PN.HOSP ---
Patient Problems: Active and Suspected Problems (Last Reviewed 09/15/18 @ 01:45 by Jordan Fischer MD) Heart failure (Acute) Subjective: Patient was seen and examined. She is off oxygen. Still has cough spasms. Feels wheezy. BS have been uncontrolled. Denies fever or chills Objective: General: Alert, Oriented x3, Cooperative, not on oxygen, no conversational dyspnea HEENT: Atraumatic, PERRLA, EOMI, Normocephalic Oral: Moist Mucosa Neck: Supple, No JVD, Negative Carotid Bruits Lungs: Diminished, Wheezes Cardiovascular: Regular rate, Regular Rhythm, Normal S1, Normal S2, No murmurs Abdomen: Bowel Sounds Present, Soft, Non Tender, Non-Distended, No Hepato-splenomegaly, Obese Extremities: Edema - Trace bilateral edema Skin: No breakdown Musculoskeletal: No Tenderness to Palpation of Joints or Extremities Lymphatic: No Cervical, Supraclavicular, or Inguinal Adenopathy Neurological: Cranial nerves II-XII grossly intact, Neuro grossly intact Psych/Mental Status: Normal Affect, Appropriate Vitals/I&O's: Vital Signs Temp Pulse Resp BP Pulse Ox 98.8 F 62 16 117/57 L 100 09/16/18 15:10 09/16/18 15:10 09/16/18 15:10 09/16/18 15:10 09/16/18 15:10 Oxygen Flow Rate (L/min) 2 Oxygen Delivery Method Nasal Cannula Weight: 80.6 kg Body Mass Index (BMI) 30.9 Finger Stick Blood Glucose 257 Intake and Output for Last 24 Hours 09/14/18 09/15/18 09/16/18 23:59 23:59 23:59 Intake Total 120 / 120 1100 / 1100 320 / 320 Output Total 100 / 100 100 / 100 Balance 1000 / 1000 320 / 320 Microbiology Past 72 Hours 09/15/18 02:20 Mucosa - Nasopharyngeal Respiratory Panel (PCR) - Final Laboratory Results 09/15/18 16:43: POC Glucose 352 H 09/15/18 21:33: POC Glucose 408 H 09/16/18 03:08: POC Glucose 321 H 09/16/18 06:00: PT 47.7 H, INR 5.1 H* 09/16/18 06:00: WBC 31.7 H*, RBC 4.06 L, Hgb 10.3 L, Hct 34.1 L, MCV 84.0, MCH 25.4 L, MCHC 30.2 L, RDW 16.3 H, RDW Differential 49.3 H, Plt Count 279, MPV 10.6, Immature Gran % (Auto) 0.500, Neut % (Auto) 96.4 H, Lymph % (Auto) 1.7 L, [place] % (Auto) 1.4, Eos % (Auto) 0.0, Baso % (Auto) 0.0, Absolute Neuts (auto) 30.5 H, Absolute Lymphs (auto) 0.54 L, Total Counted Not Reportable, Diff Path Review Reviewed 09/16/18 06:00: Sodium 134 L, Potassium 5.0, Chloride 98, Carbon Dioxide 27.0, Anion Gap 9, BUN 63 H, Creatinine 2.47 H, Estim Creat Clear Calc 15.78, Est GFR (MDRD) Af Amer 24 L, Est GFR (MDRD) Non-Af 20 L, BUN/Creatinine Ratio 25.5 H, Glucose 312 H, Calcium 8.7 09/16/18 06:49: POC Glucose 291 H 09/16/18 08:24: WBC 30.4 H* 09/16/18 11:25: POC Glucose 429 H Current Medications Albuterol Sulfate (Ventolin Aerosols) 2.5 mg INHALATION Q2H PRN PRN PRN Reason: SHORTNESS OF BREATH Albuterol/Ipratropium (Duoneb) 3 ml INHALATION Q4H.RT [facility] Last Admin: 09/16/18 15:23 Dose: Not Given Amiodarone HCl (Cordarone) 100 mg PO DAILY [facility] Last Admin: 09/16/18 10:00 Dose: 100 mg Aspirin (Ecotrin) 81 mg PO QHS [facility] Last Admin: 09/15/18 21:37 Dose: 81 mg Calcitriol (Rocaltrol) 0.25 mcg PO MoWeFr@1000 [facility] Last Admin: 09/16/18 10:00 Dose: 0.25 mcg Clonidine (Catapres) 0.1 mg PO Q6H PRN PRN PRN Reason: sbp > 160 Dextrose (D50w Syringe) 0 gm IV X1 PRN; Protocol PRN Reason: Hypoglycemia Glucagon () 1 mg IM .X1 PRN PRN Reason: Hypoglycemia Guaifenesin (Mucinex) 1,200 mg PO BID [facility] Last Admin: 09/16/18 10:00 Dose: 1,200 mg Sodium Chloride () 250 mls @ 15 mls/hr IV .[id number] PRN PRN Reason: SALINE FLUSH Insulin Glargine (Lantus (Bkc)) 50 units SC BREAKFAST [facility] Last Admin: 09/16/18 08:34 Dose: 50 units Insulin Human Lispro (Humalog Kwikpen (Bkc)) 10 unit SC TIDCM [facility] Last Admin: 09/16/18 12:08 Dose: 10 units Insulin Human Lispro (Humalog Kwikpen (Bkc)) 0 unit SQ ACHS & 3AM [facility]; Protocol Last Admin: 09/16/18 12:09 Dose: 11 units Levothyroxine Sodium (Synthroid) 88 mcg PO DAILY@0600 [facility] Last Admin: 09/16/18 05:34 Dose: 88 mcg Lisinopril (Zestril) 40 mg PO DAILY [facility] Last Admin: 09/16/18 10:00 Dose: 40 mg Multivitamins/Minerals (Multivitamin With Minerals) 1 tablet PO DAILY@0800 [facility] Last Admin: 09/16/18 08:33 Dose: 1 tablet Ondansetron HCl (Zofran) 4 mg IV Q8H PRN PRN PRN Reason: Nausea Potassium Chloride (K-Dur) 40 meq PO DAILYCM [facility] Last Admin: 09/16/18 08:39 Dose: Not Given Prednisone () 40 mg PO DAILY@0800 [facility] Stop: 09/21/18 08:01 Senna (Senokot) 1 tablet PO BID [facility] Last Admin: 09/16/18 10:00 Dose: 1 tablet Sodium Chloride () 5 - 15 ml IV UD PRN PRN Reason: SALINE FLUSH Last Admin: 09/16/18 10:00 Dose: 10 ml Medical Necessity - Tobacco Use Smoking Status: Never smoker Assessment/Plan All Active Problems (Last Reviewed 09/15/18 @ 01:45 by Jordan Fischer MD) Heart failure (Acute) COPD exacerbation (Acute) Acute on chronic combined systolic and diastolic CHF, NYHA class 2 (Acute) Subdural bleeding (Acute) Mitral stenosis (Acute) Encounter for long-term current use of high risk medication (Acute) Dermatitis of lower extremity (Acute) Syncope (Acute) Edema of both legs (Acute) Type 2 diabetes mellitus without complications (Acute) Syncope (Acute) Possible TIA/stroke (Acute) Hemorrhagic stroke (Resolved) UTI (urinary tract infection) (Resolved) 78-year-old female with past medical history of CAD status post CABG, s/p stents, hypertension, type II DM, hypothyroidism comes in with complaints of shortness of breath and nonproductive cough ongoing for 1 week. 1. Leucocytosis, persistent, likely due to steroids, no fevers seen, patient appears clinically to be improving, will continue to monitor 2. Supratherapeutic INR, INR is 5.1, will need to hold off Coumadin, INR in a.m. 3. Acute on chronic diastolic CHF, in a known patient with underlying pulmonary hypertension, patient is on 2 L of oxygen at home Admitting BNPep was 880. Recent 2D echo(06/25/18) shows EF of 65%, stable appearing bioprosthetic mitral valve apparatus, RVSP was 72mmHg. Will continue on Lasix 20 mg p.o. twice daily, continue on strict I's and O's, CHF protocol, encourage use of incentive spirometer, encourage ambulation 4. Acute viral bronchitis, no reported history of COPD. Respiratory panel is negative, on prednisone 40mg daily, continue with breathing treatments. 5. Hypertension, controlled, continue on lisinopril, continue to monitor vitals 6. Type II DM, sugars are uncontrolled secondary to steroids, on Lantus, Lispro with insulin sliding scale, We will adjust Lantus to 55 units at breakfast, 15 units 3 times daily with insulin sliding scale 7. CKD stage III, creatinine increased to 2.47 likely secondary to diuretic effect, DC IV Lasix, continue on Lasix 20 mg p.o. twice daily 8. CAD status post CABG, status post stent, on aspirin, not on statins, not on beta-norma due to severe reaction 9. Hypothyroidism, on levothyroxine 10. Chronic leg ulcers, bilateral, status post vacuum therapy, follows with the wound clinic, wound nurse consulted 11. Paroxysmal atrial fibrillation, in normal sinus now, on amiodarone, Coumadin on hold on account of supratherapeutic INR 12. DVT prophylaxis-INR supratherapeutic, would also encourage ambulation 13. Disposition: Possible dc home in am Code Visit Inpatient E&M: 82842 Subs Hosp L2
--- NOTE | 2018-09-16 16:52 | PN_ITS ---
Patient Problems: Active and Suspected Problems (Last Reviewed 09/15/18 @ 01:45 by Jordan Fischer MD) Heart failure (Acute) Subjective: Patient was seen and examined. She is off oxygen. Still has cough spasms. Feels wheezy. BS have been uncontrolled. Denies fever or chills Objective: General: Alert, Oriented x3, Cooperative, not on oxygen, no conversational dyspnea HEENT: Atraumatic, PERRLA, EOMI, Normocephalic Oral: Moist Mucosa Neck: Supple, No JVD, Negative Carotid Bruits Lungs: Diminished, Wheezes Cardiovascular: Regular rate, Regular Rhythm, Normal S1, Normal S2, No murmurs Abdomen: Bowel Sounds Present, Soft, Non Tender, Non-Distended, No Hepato- splenomegaly, Obese Extremities: Edema - Trace bilateral edema Skin: No breakdown Musculoskeletal: No Tenderness to Palpation of Joints or Extremities Lymphatic: No Cervical, Supraclavicular, or Inguinal Adenopathy Neurological: Cranial nerves II-XII grossly intact, Neuro grossly intact Psych/Mental Status: Normal Affect, Appropriate Vitals/I&O's: Vital Signs Temp Pulse Resp BP Pulse Ox 98.8 F 62 16 117/57 L 100 09/16/18 15:10 09/16/18 15:10 09/16/18 15:10 09/16/18 15:10 09/16/18 15:10 Oxygen Flow Rate (L/min) 2 Oxygen Delivery Method Nasal Cannula Weight: 80.6 kg Body Mass Index (BMI) 30.9 Finger Stick Blood Glucose 257 Intake and Output for Last 24 Hours 09/14/18 09/15/18 09/16/18 23:59 23:59 23:59 Intake Total 120 / 120 1100 / 1100 320 / 320 Output Total 100 / 100 100 / 100 Balance 1000 / 1000 320 / 320 Microbiology Past 72 Hours 09/15/18 02:20 Mucosa - Nasopharyngeal Respiratory Panel (PCR) - Final Laboratory Results 09/15/18 16:43: POC Glucose 352 H 09/15/18 21:33: POC Glucose 408 H 09/16/18 03:08: POC Glucose 321 H 09/16/18 06:00: PT 47.7 H, INR 5.1 H* 09/16/18 06:00: WBC 31.7 H*, RBC 4.06 L, Hgb 10.3 L, Hct 34.1 L, MCV 84.0, MCH 25.4 L, MCHC 30.2 L, RDW 16.3 H, RDW Differential 49.3 H, Plt Count 279, MPV 10.6, Immature Gran % (Auto) 0.500, Neut % (Auto) 96.4 H, Lymph % (Auto) 1.7 L, [place] % (Auto) 1.4, Eos % (Auto) 0.0, Baso % (Auto) 0.0, Absolute Neuts (auto) 30.5 H, Absolute Lymphs (auto) 0.54 L, Total Counted Not Reportable, Diff Path Review Reviewed 09/16/18 06:00: Sodium 134 L, Potassium 5.0, Chloride 98, Carbon Dioxide 27.0, Anion Gap 9, BUN 63 H, Creatinine 2.47 H, Estim Creat Clear Calc 15.78, Est GFR (MDRD) Af Amer 24 L, Est GFR (MDRD) Non-Af 20 L, BUN/Creatinine Ratio 25.5 H, Glucose 312 H, Calcium 8.7 09/16/18 06:49: POC Glucose 291 H 09/16/18 08:24: WBC 30.4 H* 09/16/18 11:25: POC Glucose 429 H Current Medications Albuterol Sulfate (Ventolin Aerosols) 2.5 mg INHALATION Q2H PRN PRN PRN Reason: SHORTNESS OF BREATH Albuterol/Ipratropium (Duoneb) 3 ml INHALATION Q4H.RT [facility] Last Admin: 09/16/18 15:23 Dose: Not Given Amiodarone HCl (Cordarone) 100 mg PO DAILY [facility] Last Admin: 09/16/18 10:00 Dose: 100 mg Aspirin (Ecotrin) 81 mg PO QHS [facility] Last Admin: 09/15/18 21:37 Dose: 81 mg Calcitriol (Rocaltrol) 0.25 mcg PO MoWeFr@1000 [facility] Last Admin: 09/16/18 10:00 Dose: 0.25 mcg Clonidine (Catapres) 0.1 mg PO Q6H PRN PRN PRN Reason: sbp > 160 Dextrose (D50w Syringe) 0 gm IV X1 PRN; Protocol PRN Reason: Hypoglycemia Glucagon () 1 mg IM .X1 PRN PRN Reason: Hypoglycemia Guaifenesin (Mucinex) 1,200 mg PO BID [facility] Last Admin: 09/16/18 10:00 Dose: 1,200 mg Sodium Chloride () 250 mls @ 15 mls/hr IV .[id number] PRN PRN Reason: SALINE FLUSH Insulin Glargine (Lantus (Bkc)) 50 units SC BREAKFAST [facility] Last Admin: 09/16/18 08:34 Dose: 50 units Insulin Human Lispro (Humalog Kwikpen (Bkc)) 10 unit SC TIDCM [facility] Last Admin: 09/16/18 12:08 Dose: 10 units Insulin Human Lispro (Humalog Kwikpen (Bkc)) 0 unit SQ ACHS & 3AM [facility]; Protocol Last Admin: 09/16/18 12:09 Dose: 11 units Levothyroxine Sodium (Synthroid) 88 mcg PO DAILY@0600 [facility] Last Admin: 09/16/18 05:34 Dose: 88 mcg Lisinopril (Zestril) 40 mg PO DAILY [facility] Last Admin: 09/16/18 10:00 Dose: 40 mg Multivitamins/Minerals (Multivitamin With Minerals) 1 tablet PO DAILY@0800 [facility] Last Admin: 09/16/18 08:33 Dose: 1 tablet Ondansetron HCl (Zofran) 4 mg IV Q8H PRN PRN PRN Reason: Nausea Potassium Chloride (K-Dur) 40 meq PO DAILYCM [facility] Last Admin: 09/16/18 08:39 Dose: Not Given Prednisone () 40 mg PO DAILY@0800 [facility] Stop: 09/21/18 08:01 Senna (Senokot) 1 tablet PO BID [facility] Last Admin: 09/16/18 10:00 Dose: 1 tablet Sodium Chloride () 5 - 15 ml IV UD PRN PRN Reason: SALINE FLUSH Last Admin: 09/16/18 10:00 Dose: 10 ml Medical Necessity - Tobacco Use Smoking Status: Never smoker Assessment/Plan All Active Problems (Last Reviewed 09/15/18 @ 01:45 by Jordan Fischer MD) Heart failure (Acute) COPD exacerbation (Acute) Acute on chronic combined systolic and diastolic CHF, NYHA class 2 (Acute) Subdural bleeding (Acute) Mitral stenosis (Acute) Encounter for long-term current use of high risk medication (Acute) Dermatitis of lower extremity (Acute) Syncope (Acute) Edema of both legs (Acute) Type 2 diabetes mellitus without complications (Acute) Syncope (Acute) Possible TIA/stroke (Acute) Hemorrhagic stroke (Resolved) UTI (urinary tract infection) (Resolved) 78-year-old female with past medical history of CAD status post CABG, s/p stents, hypertension, type II DM, hypothyroidism comes in with complaints of shortness of breath and nonproductive cough ongoing for 1 week. 1. Leucocytosis, persistent, likely due to steroids, no fevers seen, patient appears clinically to be improving, will continue to monitor 2. Supratherapeutic INR, INR is 5.1, will need to hold off Coumadin, INR in a.m. 3. Acute on chronic diastolic CHF, in a known patient with underlying pulmonary hypertension, patient is on 2 L of oxygen at home Admitting BNPep was 880. Recent 2D echo(06/25/18) shows EF of 65%, stable appearing bioprosthetic mitral valve apparatus, RVSP was 72mmHg. Will continue on Lasix 20 mg p.o. twice daily, continue on strict I's and O's, CHF protocol, encourage use of incentive spirometer, encourage ambulation 4. Acute viral bronchitis, no reported history of COPD. Respiratory panel is negative, on prednisone 40mg daily, continue with breathing treatments. 5. Hypertension, controlled, continue on lisinopril, continue to monitor vitals 6. Type II DM, sugars are uncontrolled secondary to steroids, on Lantus, Lispro with insulin sliding scale, We will adjust Lantus to 55 units at breakfast, 15 units 3 times daily with insulin sliding scale 7. CKD stage III, creatinine increased to 2.47 likely secondary to diuretic effect, DC IV Lasix, continue on Lasix 20 mg p.o. twice daily 8. CAD status post CABG, status post stent, on aspirin, not on statins, not on beta-norma due to severe reaction 9. Hypothyroidism, on levothyroxine 10. Chronic leg ulcers, bilateral, status post vacuum therapy, follows with the wound clinic, wound nurse consulted 11. Paroxysmal atrial fibrillation, in normal sinus now, on amiodarone, Coumadin on hold on account of supratherapeutic INR 12. DVT prophylaxis-INR supratherapeutic, would also encourage ambulation 13. Disposition: Possible dc home in am Code Visit Inpatient E&M: 61539 Subs Hosp L2
[2018-09-16] MEDS: Furosemide 20 MG Tablet PO (17:10)
[2018-09-16] MEDS: Insulin Lispro 100 UNIT/ML INSULN.PEN 15 UNIT SC (17:10)
[2018-09-16 17:16] LABS: Bedside Glucose 383 mg/dL (70-110)
[2018-09-16] MEDS: Aspirin E.C. 81 MG Tablet PO (21:34)
[2018-09-16 21:46] LABS: Bedside Glucose 222 mg/dL (70-110)
[2018-09-17] VITALS (16 sets, daily range): BP systolic 151–168; BP diastolic 56–70; PULSE 54–96; RESP 16–18; TEMP 36.4–36.6; O2SAT 94–98
[2018-09-17 03:36] LABS: Bedside Glucose 140 mg/dL (70-110)
[2018-09-17] MEDS: Levothyroxine 88 MCG Tablet PO (06:02)
[2018-09-17 06:38] LABS: Absolute Lymphocyte Count 1.15 X10^3/ul (0.83-4.51); Absolute Neutrophil Count 19.5 X10^3/uL (2.0-7.7); Basophil# 0.01 X10^3/uL; Eosinophil# 0.05 X10^3/uL; Eosinophils% 0.2 % (0-5); Hematocrit 36.9 % (37-47); Hemoglobin 11.2 g/dl (12.0-15.0); Lymphocyte # 1.15 X10^3/ul (4.0); Lymphocyte % 5.2 % (19-41); Mean Corp Hgb Conc 30.4 g/gl (32-36); Mean Corpuscular Hgb 25.7 pg (27.0-32.0); Mean Corpuscular Volume 84.8 fL (81-99); Mean Platelet Vol. 10.6 fl (6.2-12.0); Monocyte% 5.5 % (0-10); Neutrophil # 19.51 X10^3/uL (2.7-7.7); Neutrophil % 88.7 % (47-70); Platelet Count 254 K/mm3 (150-450); RBC Distribution Width CV 16.2 % (11.6-14.6); RBC Distribution Width SD 48.8 fl (35.1-43.9); Red Blood Count 4.35 M/mm3 (4.2-5.4)
[2018-09-17 06:40] LABS: POSITIVE COUNT NO; POSITIVE DIFFERENTIAL NO; POSITIVE MORPHOLOGY NO
[2018-09-17 06:55] LABS: International Normalized Ratio 3.8; Prothrombin Time (Protime)PT. 37.9 SECONDS (11.7-14.9)
[2018-09-17 06:56] LABS: Bedside Glucose 125 mg/dL (70-110)
[2018-09-17 06:58] LABS: Anion Gap 9 (5-15); BUN 76 mg/dL (7-18); BUN/Creat Ratio 32.2 RATIO (10-20); Calcium,Total 8.6 mg/dL (8.5-10.1); Chloride 102 mmol/L (98-107); Creatinine, Serum 2.36 mg/dL (0.55-1.02); EST Glomerular Filtration Rate 21 mL/min (>60); Est Glom Filt Rate - Afr Amer 26 mL/min (>60); Estimated Creatinine Clearance 16.51 ml/min; Glucose 126 mg/dL (74-106); Potassium 5.2 mmol/L (3.5-5.1); Sodium Level 140 mmol/L (136-145)
[2018-09-17] MEDS: Ipratropium/Albuterol Sulfate 3 ML AMPUL.NEB INHALATION ×5 (07:26→23:24)
--- NOTE | 2018-09-17 08:04 | PCM.PN.HOSP ---
Patient Problems: Active and Suspected Problems (Last Reviewed 09/15/18 @ 01:45 by Jordan Fischer MD) Heart failure (Acute) Subjective: Patient was seen and examined. She complains of cold sores around her lips and in her mouth. Admits to feeling better. Off oxygen, saturating well on room air, able to complete sentences. Complains of persistent coughing with chest discomfort. Cough is productive of whitish sputum. States she started to feel much better. Rest of review of systems was negative Objective: Physical exam: General: Alert, Oriented x3, Cooperative, not on oxygen, no conversational dyspnea HEENT: Atraumatic, PERRLA, EOMI, Normocephalic Oral: Moist Mucosa Neck: Supple, No JVD, Negative Carotid Bruits Lungs: Diminished, Wheezes Cardiovascular: Regular rate, Regular Rhythm, Normal S1, Normal S2, No murmurs Abdomen: Bowel Sounds Present, Soft, Non Tender, Non-Distended, No Hepato-splenomegaly, Obese Extremities: Edema - Trace bilateral edema Skin: No breakdown Musculoskeletal: No Tenderness to Palpation of Joints or Extremities Lymphatic: No Cervical, Supraclavicular, or Inguinal Adenopathy Neurological: Cranial nerves II-XII grossly intact, Neuro grossly intact Psych/Mental Status: Normal Affect, Appropriate Vitals/I&O's: Vital Signs Temp Pulse Resp BP Pulse Ox 97.6 F L 58 L 16 155/70 H 98 09/17/18 03:10 09/17/18 07:26 09/17/18 07:26 09/17/18 03:10 09/17/18 07:26 Oxygen Flow Rate (L/min) 2 Oxygen Delivery Method Nasal Cannula Weight: 80.3 kg Body Mass Index (BMI) 30.9 Finger Stick Blood Glucose 257 Intake and Output for Last 24 Hours 09/15/18 09/16/18 09/17/18 23:59 23:59 23:59 Intake Total 1100 / 1100 920 / 920 60 / 60 Output Total 100 / 100 250 / 250 575 / 575 Balance 1000 / 1000 670 / 670 -515 / -515 Microbiology Past 72 Hours 09/15/18 02:20 Mucosa - Nasopharyngeal Respiratory Panel (PCR) - Final Laboratory Results 09/16/18 06:00: Diff Path Review Reviewed 09/16/18 08:24: WBC 30.4 H* 09/16/18 11:25: POC Glucose 429 H 09/16/18 16:58: POC Glucose 383 H 09/16/18 21:31: POC Glucose 222 H 09/17/18 03:25: POC Glucose 140 H 09/17/18 06:00: PT 37.9 H, INR 3.8 H* 09/17/18 06:00: WBC 22.0 H, RBC 4.35, Hgb 11.2 L, Hct 36.9 L, MCV 84.8, MCH 25.7 L, MCHC 30.4 L, RDW 16.2 H, RDW Differential 48.8 H, Plt Count 254, MPV 10.6, Immature Gran % (Auto) 0.400, Neut % (Auto) 88.7 H, Lymph % (Auto) 5.2 L, [place] % (Auto) 5.5, Eos % (Auto) 0.2, Baso % (Auto) 0.0, Absolute Neuts (auto) 19.5 H, Absolute Lymphs (auto) 1.15, Total Counted Not Reportable 09/17/18 06:00: Sodium 140, Potassium 5.2 H, Chloride 102, Carbon Dioxide 29.0, Anion Gap 9, BUN 76 H, Creatinine 2.36 H, Estim Creat Clear Calc 16.51, Est GFR (MDRD) Af Amer 26 L, Est GFR (MDRD) Non-Af 21 L, BUN/Creatinine Ratio 32.2 H, Glucose 126 H, Calcium 8.6 09/17/18 06:50: POC Glucose 125 H Current Medications Albuterol Sulfate (Ventolin Aerosols) 2.5 mg INHALATION Q2H PRN PRN PRN Reason: SHORTNESS OF BREATH Albuterol/Ipratropium (Duoneb) 3 ml INHALATION Q4H.RT [facility] Last Admin: 09/17/18 07:26 Dose: 3 ml Amiodarone HCl (Cordarone) 100 mg PO DAILY [facility] Last Admin: 09/16/18 10:00 Dose: 100 mg Aspirin (Ecotrin) 81 mg PO QHS [facility] Last Admin: 09/16/18 21:34 Dose: 81 mg Calcitriol (Rocaltrol) 0.25 mcg PO MoWeFr@1000 [facility] Last Admin: 09/16/18 10:00 Dose: 0.25 mcg Clonidine (Catapres) 0.1 mg PO Q6H PRN PRN PRN Reason: sbp > 160 Dextrose (D50w Syringe) 0 gm IV X1 PRN; Protocol PRN Reason: Hypoglycemia Furosemide (Lasix) 20 mg PO BID@1000,1800 [facility] Last Admin: 09/16/18 17:10 Dose: 20 mg Glucagon () 1 mg IM .X1 PRN PRN Reason: Hypoglycemia Guaifenesin (Mucinex) 1,200 mg PO BID [facility] Last Admin: 09/16/18 21:35 Dose: 1,200 mg Sodium Chloride () 250 mls @ 15 mls/hr IV .[id number] PRN PRN Reason: SALINE FLUSH Insulin Glargine (Lantus (Bkc)) 55 units SC BREAKFAST [facility] Insulin Human Lispro (Humalog Kwikpen (Bk)) 0 unit SQ ACHS & 3AM JOANNE; Protocol Last Admin: 09/17/18 07:34 Dose: Not Given Insulin Human Lispro (Humalog Kwikpen (Bkc)) 15 unit SC TIDCM [facility] Last Admin: 09/16/18 17:10 Dose: 15 u Levothyroxine Sodium (Synthroid) 88 mcg PO DAILY@0600 [facility] Last Admin: 09/17/18 06:02 Dose: 88 mcg Lisinopril (Zestril) 40 mg PO DAILY [facility] Last Admin: 09/16/18 10:00 Dose: 40 mg Multivitamins/Minerals (Multivitamin With Minerals) 1 tablet PO DAILY@0800 [facility] Last Admin: 09/16/18 08:33 Dose: 1 tablet Ondansetron HCl (Zofran) 4 mg IV Q8H PRN PRN PRN Reason: Nausea Potassium Chloride (K-Dur) [facility] Last Admin: 09/16/18 08:39 Dose: Not Given Prednisone () 40 mg PO DAILY@0800 [facility] Stop: 09/21/18 08:01 Senna (Senokot) 1 tablet PO BID [facility] Last Admin: 09/16/18 21:35 Dose: 1 tablet Sodium Chloride () 5 - 15 ml IV UD PRN PRN Reason: SALINE FLUSH Last Admin: 09/16/18 10:00 Dose: 10 ml Medical Necessity - Tobacco Use Smoking Status: Never smoker Assessment/Plan All Active Problems (Last Reviewed 09/15/18 @ 01:45 by Jordan Fischer MD) Heart failure (Acute) COPD exacerbation (Acute) Acute on chronic combined systolic and diastolic CHF, NYHA class 2 (Acute) Subdural bleeding (Acute) Mitral stenosis (Acute) Encounter for long-term current use of high risk medication (Acute) Dermatitis of lower extremity (Acute) Syncope (Acute) Edema of both legs (Acute) Type 2 diabetes mellitus without complications (Acute) Syncope (Acute) Possible TIA/stroke (Acute) Hemorrhagic stroke (Resolved) UTI (urinary tract infection) (Resolved) 78-year-old female with past medical history of CAD status post CABG, s/p stents, hypertension, type II DM, hypothyroidism comes in with complaints of shortness of breath and nonproductive cough ongoing for 1 week. 1. Leucocytosis, improving, secondary to steroids, no signs of infection 2. Supratherapeutic INR, INR is 3.8, will continue to hold off Coumadin, INR in a.m. 3. Acute on chronic diastolic CHF, in a known patient with underlying pulmonary hypertension, patient is on 2 L of oxygen at home Admitting BNPep was 880. Recent 2D echo(06/25/18) shows EF of 65%, stable appearing bioprosthetic mitral valve apparatus, RVSP was 72mmHg. Will continue on Lasix 20 mg p.o. twice daily, continue on strict I's and O's, CHF protocol, encourage use of incentive spirometer, encourage ambulation 4. Acute viral bronchitis, no reported history of COPD. Respiratory panel is negative, on prednisone 40mg daily, continue with breathing treatments. 5. Hypertension, controlled, continue on lisinopril, continue to monitor vitals 6. Type II DM, BS are better controlled now. On adjusted Lantus, Lispro with insulin sliding scale, 7. CKD stage III, creatinine appears slightly improved off IV Lasix, continue on oral Lasix 8. CAD status post CABG, status post stent, on aspirin, not on statins, not on beta-norma due to severe reaction 9. Hypothyroidism, on levothyroxine 10. Chronic leg ulcers, bilateral, status post vacuum therapy, follows with the wound clinic, wound nurse consulted 11. Paroxysmal atrial fibrillation, in normal sinus now, on amiodarone, Coumadin on hold on account of supratherapeutic INR 12. DVT prophylaxis-INR supratherapeutic, would also encourage ambulation 13. Disposition: Possible dc home in am Code Visit Inpatient E&M: 47872 Subs Hosp L2
[2018-09-17] MEDS: Insulin Lispro 100 UNIT/ML INSULN.PEN 15 UNIT SC ×3 (08:11→17:38)
[2018-09-17] MEDS: predniSONE 20 MG Tablet 40 MG PO (08:11)
[2018-09-17] MEDS: Multivitamins,Ther W-Minerals Tablet 1 TABLET PO (08:12)
[2018-09-17] MEDS: Senna Tablet 1 TABLET PO (09:01)
[2018-09-17] MEDS: Lisinopril 40 MG Tablet PO (09:01)
[2018-09-17] MEDS: guaiFENesin 1,200 MG Tablet 1200 MG PO ×2 (09:01→21:17)
[2018-09-17] MEDS: Furosemide 20 MG Tablet PO ×2 (09:02→17:37)
[2018-09-17] MEDS: Amiodarone 200 MG Tablet 100 MG PO (09:02)
[2018-09-17 12:20] LABS: Bedside Glucose 151 mg/dL (70-110)
--- NOTE | 2018-09-17 13:47 | NURSING ---
wound photo: left dorsal foot
[2018-09-17] MEDS: Acetaminophen 500 MG Tablet 1000 MG PO ×2 (14:30→21:17)
[2018-09-17] MEDS: Acyclovir 5% Tube 1 APPLIC TOPICAL ×3 (14:32→21:18)
[2018-09-17] MEDS: Insulin Lispro 100 UNIT/ML INSULN.PEN SQ ×3 (14:32→21:26)
[2018-09-17 14:41] LABS: Bedside Glucose 174 mg/dL (70-110)
[2018-09-17 16:56] LABS: Bedside Glucose 241 mg/dL (70-110)
[2018-09-17] MEDS: Aspirin E.C. 81 MG Tablet PO (21:17)
[2018-09-17 21:30] LABS: Bedside Glucose 211 mg/dL (70-110)
[2018-09-18] VITALS (11 sets, daily range): BP systolic 134–173; BP diastolic 76–79; PULSE 49–60; RESP 18; TEMP 36.4–36.8; O2SAT 93–98
[2018-09-18] MEDS: cloNIDine HCl 0.1 MG Tablet PO (02:59)
[2018-09-18] MEDS: Insulin Lispro 100 UNIT/ML INSULN.PEN SQ ×2 (02:59→12:35)
[2018-09-18 03:06] LABS: Bedside Glucose 220 mg/dL (70-110)
[2018-09-18 06:07] LABS: Anion Gap 8 (5-15); BUN 78 mg/dL (7-18); BUN/Creat Ratio 36.8 RATIO (10-20); Calcium,Total 8.4 mg/dL (8.5-10.1); Chloride 104 mmol/L (98-107); Creatinine, Serum 2.12 mg/dL (0.55-1.02); EST Glomerular Filtration Rate 24 mL/min (>60); Est Glom Filt Rate - Afr Amer 29 mL/min (>60); Estimated Creatinine Clearance 18.38 ml/min; Glucose 171 mg/dL (74-106); Potassium 4.5 mmol/L (3.5-5.1); Sodium Level 141 mmol/L (136-145)
[2018-09-18 06:08] LABS: Absolute Lymphocyte Count 1.08 X10^3/ul (0.83-4.51); Absolute Neutrophil Count 11.1 X10^3/uL (2.0-7.7); Eosinophil# 0.07 X10^3/uL; Eosinophils% 0.5 % (0-5); Hematocrit 32.1 % (37-47); Lymphocyte # 1.08 X10^3/ul (4.0); Lymphocyte % 8.2 % (19-41); Mean Corp Hgb Conc 31.2 g/gl (32-36); Mean Corpuscular Hgb 26.5 pg (27.0-32.0); Mean Corpuscular Volume 84.9 fL (81-99); Mean Platelet Vol. 10.5 fl (6.2-12.0); Monocyte% 6.8 % (0-10); Neutrophil # 11.09 X10^3/uL (2.7-7.7); Neutrophil % 83.8 % (47-70); Platelet Count 204 K/mm3 (150-450); RBC Distribution Width CV 16.2 % (11.6-14.6); RBC Distribution Width SD 49.1 fl (35.1-43.9); Red Blood Count 3.78 M/mm3 (4.2-5.4); White Blood Count 13.2 K/mm3 (4.4-11.0)
[2018-09-18 06:13] LABS: International Normalized Ratio 2.5; Prothrombin Time (Protime)PT. 27.2 SECONDS (11.7-14.9)
[2018-09-18 06:16] LABS: POSITIVE COUNT NO; POSITIVE DIFFERENTIAL NO; POSITIVE MORPHOLOGY NO
[2018-09-18] MEDS: Levothyroxine 88 MCG Tablet PO (06:18)
[2018-09-18] MEDS: Acetaminophen 500 MG Tablet 1000 MG PO (06:18)
[2018-09-18] MEDS: Acyclovir 5% Tube 1 APPLIC TOPICAL ×4 (06:21→16:37)
[2018-09-18 06:50] LABS: Bedside Glucose 139 mg/dL (70-110)
[2018-09-18] MEDS: Multivitamins,Ther W-Minerals Tablet 1 TABLET PO (09:15)
[2018-09-18] MEDS: predniSONE 20 MG Tablet 40 MG PO (09:15)
[2018-09-18] MEDS: Calcitriol 0.25 MCG Capsule PO (09:16)
[2018-09-18] MEDS: guaiFENesin 1,200 MG Tablet 1200 MG PO (09:16)
[2018-09-18] MEDS: Insulin Lispro 100 UNIT/ML INSULN.PEN 15 UNIT SC ×3 (09:23→16:36)
--- NOTE | 2018-09-18 11:29 | DCINST_ITS ---
- Discharge Diagnoses Current Active Problems: Current Active and Chronic Problems (Last Reviewed 09/15/18 @ 01:45 by Jordan Fischer MD) Heart failure (Acute) Reason(s) for Visit for Discharge Instructions: Cough, shortness of breath You will use the following diet at home:: Calorie/Carbohydrate Controlled (specify 1200, 1400, etc), Cardiac Your food should be the consistency of: Regular Your liquids should be the consistency of: Regular/Thin Discharge Activity: Return to Normal Activity Additional Instructions: Continue to take all your medications. Watch your weights daily. Note the changes to your medications. Continue to use your incentive spirometer. Follow-up with youyr primary doctor andf operations advisor for your coumadin. Continue to check your blood sugars 3-4 times a day. Follow-up with wound center for yiur chronic wounds. Allergies/Adverse Reactions: Allergies dronedarone [From Multaq] Allergy (Severe, Verified 09/14/18 16:46) difficulty breathing dronedarone HCl [From Multaq] Allergy (Verified 09/14/18 16:46) Other unable to breath quinapril [From Accupril] Adverse Reaction (Severe, Verified 09/14/18 16:46) near syncope cortisone Adverse Reaction (Intermediate, Verified 09/14/18 16:46) swelling hydralazine Adverse Reaction (Intermediate, Verified 09/14/18 16:46) weakness Beta-Blockers (Beta-Adrenergic Bloc Adverse Reaction (Verified 09/14/18 16:46) Other WHEEZING, shaking, passes out prednisone Adverse Reaction (Verified 09/14/18 16:46) Swelling CARDURA Allergy (Uncoded 09/14/18 16:46) Other PT NOT SURE- POSSIBLE SWELLING NORVASC Allergy (Uncoded 09/14/18 16:46) Swelling SCALLOPS Allergy (Uncoded 09/14/18 16:46) Swelling SULFA Allergy (Uncoded 09/14/18 16:46) Other SPOTS IN MOUTH/SORE MOUTH ATIVAN Adverse Reaction (Uncoded 09/14/18 16:46) Other HALLUCINATIONS METATOPOLOL TARTATE Adverse Reaction (Uncoded 09/14/18 16:46) Other Medications to take at Discharge Albuterol Inhaler [Ventolin Hfa] 2 puff INHALATION Q4H PRN PRN #1 inhaler 10/27/14 Calcitriol [Rocaltrol] 0.25 mcg PO MOWEFR 01/16/17 Aspirin E.C. [Ecotrin] 81 mg PO QHS 01/07/18 Albuterol Aerosols [Ventolin Aerosols] 3 ml INHALATION BID 06/22/18 Amiodarone HCl 100 mg PO DAILY 06/22/18 Multivit-Min/Iron/Folic/Lutein [Centrum Silver Women Tablet] 1 tab PO DAILY 06/22/18 levothyroxine 88 mcg tablet 88 mcg PO DAILY 30 Days #90 tab 07/27/18 lisinopril 40 mg tablet 40 mg PO DAILY 08/13/18 Furosemide [Lasix] 20 mg PO BIDLX 09/14/18 Acetaminophen [Tylenol] 1,000 mg PO Q8 PRN #30 tablet 09/18/18 Acyclovir [Zovirax] 1 applic TOPICAL 5X/DAY #1 tube 09/18/18 Guaifenesin [Mucinex] 1,200 mg PO BID #20 tablet 09/18/18 Insulin Glargine [Lantus SoloStar Pen] 55 units SC BREAKFAST #1 pen 09/18/18 Insulin Lispro [Humalog KwikPen] 15 unit SC TIDCM insuln.pen 09/18/18 Insulin Lispro [Humalog KwikPen] See Protocol SQ ACHS & 3AM insuln.pen 09/18/18 Losartan Potassium [Cozaar] 50 mg PO DAILY #30 tablet 09/18/18 Prednisone 10 mg PO .COMPLEX #40 tab 09/18/18 Warfarin [Coumadin] 2 mg PO DAILY #0 09/18/18 The following prescriptions were given: Acyclovir [Zovirax] 1 applic TOPICAL 5X/DAY #1 tube Insulin Glargine [Lantus SoloStar Pen] 55 units SC BREAKFAST #1 pen Losartan Potassium [Cozaar] 50 mg PO DAILY #30 tablet Prednisone 10 mg PO .COMPLEX #40 tab Guaifenesin [Mucinex] 1,200 mg PO BID #20 tablet Primary Care Physician: Jovana Moulton MD [Primary Care Provider] - Please follow up with your Primary Care Physician in: within 1-2 weeks Test Results: Test results from this visit will be discussed in further detail at your follow- up appointment, if applicable. Please Follow Up With: Beto Dennis MD When: within 1-2 weeks Please Follow Up With: Jerzy Smiley MD When: in 2-4 weeks Proposed Discharge Date: 09/18/18
--- NOTE | 2018-09-18 11:39 | PCM.DC.SUM ---
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 (Chronic) Traumatic ulcer of left foot with fat layer exposed (Chronic) Peripheral arterial disease (Chronic) CAD (coronary artery disease) (Chronic) S/P PTCA (percutaneous transluminal coronary angioplasty) (Chronic) S/P CABG x 1 (Chronic) S/P left atrial appendage ligation (Chronic) Atherosclerosis of coronary artery bypass graft without angina pectoris (Chronic) Postsurgical percutaneous transluminal coronary angioplasty (PTCA) status (Chronic) PTCA of LAD ; Paroxysmal atrial fibrillation (Chronic) Depression (Chronic) detention (current) use of anticoagulants (Chronic) Bradycardia (Chronic) S/P CABG x 1 (Chronic 09/29/14) 09/29/2014 CABG: SVG to distal LAD [facility] per Dr. Miller 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 Angela Alexis History of mitral valve replacement with bioprosthetic valve (Chronic 09/29/14) 09/29/2014: MVR with 27 mm Medtronic tisue valve per Dr. Angela Alexis Atrial fibrillation (Chronic) Hyperlipidemia (Chronic) Hypertension (Chronic) resistant HTN Cerebrovascular disease (Chronic) ischemic stroke w hemorrhagic transformation in the setting of coumadin anticoagulation Anemia (Chronic) CRF (chronic renal failure) (Chronic) Anticoagulation goal of INR 2 to 3 (Chronic) Diabetes mellitus type II, uncontrolled (Chronic) Stroke with left visual deficit (Chronic) Chronic diastolic heart failure (Chronic) Pulmonary hypertension (Chronic) MAGALI (obstructive sleep apnea) (Chronic) on CPAP Hospital Course and Treatment Imaging Results: Clinical Impression(s) from Imaging Studies Chest X-Ray 09/14/18 17:05 IMPRESSION: No acute thoracic pathology. Electronically Signed: Kole Rader, at 17:19 EST Tel , Service support , Consultations 09/14/18 20:20 Consult: Onc/Wound/financial health counselor Routine Comment: Reason for Consult:: bilateral leg wound Operations: None Procedures: None Summary of Care Provided: 78-year-old female with past medical history of CAD status post CABG, s/p stents, hypertension, type II DM, hypothyroidism comes in with complaints of shortness of breath and nonproductive cough ongoing for 1 week. Patient was admitted and managed as acute on chronic diastolic CHF. She was managed on IV Lasix with improvement. Respiratory panel was negative for influenza or any viruses. She was also managed as acute viral bronchitis with IV Solu-Medrol and later transitioned to oral prednisone. Patient had elevation in her BBC count secondary to steroids. WBC count was trending at the time of discharge. She also had a slight elevation in her creatinine secondary to diuretic therapy. Oral Lasix was adjusted. Patient continued to improve and was eventually off oxygen. She was discharged home on steroid taper. She will follow-up with Dr. Dennis and her primary care doctor for her INR and Coumadin adjustment. She will also follow-up with the wound clinic for her chronic leg ulcers. Patient Problems: Active and Suspected Problems (Last Reviewed 09/15/18 @ 01:45 by Jordan Fischer MD) Heart failure (Acute) Subjective: Patient seen and examined. She felt better. Been off oxygen. Denies any chest pain no dizziness or shortness of breath Objective: Physical exam: General: Alert, Oriented x3, Cooperative, not on oxygen, no conversational dyspnea HEENT: Atraumatic, PERRLA, EOMI, Normocephalic Oral: Moist Mucosa Neck: Supple, No JVD, Negative Carotid Bruits Lungs: Diminished, Wheezes Cardiovascular: Regular rate, Regular Rhythm, Normal S1, Normal S2, No murmurs Abdomen: Bowel Sounds Present, Soft, Non Tender, Non-Distended, No Hepato-splenomegaly, Obese Extremities: Edema - Trace bilateral edema Skin: No breakdown Musculoskeletal: No Tenderness to Palpation of Joints or Extremities Lymphatic: No Cervical, Supraclavicular, or Inguinal Adenopathy Neurological: Cranial nerves II-XII grossly intact, Neuro grossly intact Psych/Mental Status: Normal Affect, Appropriate - Physical Exam Vital Signs Temp Pulse Resp BP Pulse Ox 98.2 F 53 L 18 155/76 H 95 09/18/18 08:47 09/18/18 08:47 09/18/18 08:47 09/18/18 08:47 09/18/18 08:47 Oxygen Flow Rate (L/min) 2 Oxygen Delivery Method Room Air Weight: 81.193 kg Body Mass Index (BMI) 30.9 Finger Stick Blood Glucose 257 Intake and Output for Last 24 Hours 09/16/18 09/17/18 09/18/18 23:59 23:59 23:59 Intake Total 920 / 920 1190 / 1190 480 / 480 Output Total 250 / 250 1325 / 1325 Balance 670 / 670 -135 / -135 480 / 480 Microbiology Past 72 Hours 09/15/18 02:20 Respiratory Panel (PCR) - Final Mucosa - Nasopharyngeal Laboratory Tests Past 24 Hrs 09/18/18 09/18/18 09/18/18 05:25 05:25 05:25 WBC 13.2 H RBC 3.78 L Hgb 10.0 L Hct 32.1 L MCV 84.9 MCH 26.5 L MCHC 31.2 L RDW 16.2 H RDW Differential 49.1 H Plt Count 204 MPV 10.5 Immature Gran % (Auto) 0.700 Neut % (Auto) 83.8 H Lymph % (Auto) 8.2 L Barton % (Auto) 6.8 Eos % (Auto) 0.5 Baso % (Auto) 0.0 Absolute Neuts (auto) 11.1 H Absolute Lymphs (auto) 1.08 Total Counted Not Reportable PT 27.2 H INR 2.5 Sodium 141 Potassium 4.5 Chloride 104 Carbon Dioxide 29.0 Anion Gap 8 BUN 78 H Creatinine 2.12 H Estim Creat Clear Calc 18.38 Est GFR (MDRD) Af Amer 29 L Est GFR (MDRD) Non-Af 24 L BUN/Creatinine Ratio 36.8 H Glucose 171 H Calcium 8.4 L POC Glucose 09/18/18 09/18/18 09/17/18 06:47 02:58 21:22 POC Glucose 139 H 220 H 211 H 09/17/18 09/17/18 09/17/18 16:53 14:28 11:47 POC Glucose 241 H 174 H 151 H Discharge Diet: Low fat/ Low Cholesterol, 8 Cup Fluid Restriciton, 2000 mg Sodium Diet, Carb Control Diet Discharge Activity: Return to Normal Activity Home Medications: Medications to take at Discharge Albuterol Inhaler [Ventolin Hfa] 2 puff INHALATION Q4H PRN PRN #1 inhaler 10/27/14 Calcitriol [Rocaltrol] 0.25 mcg PO MOWEFR 01/16/17 Aspirin E.C. [Ecotrin] 81 mg PO QHS 01/07/18 Albuterol Aerosols [Ventolin Aerosols] 3 ml INHALATION BID 06/22/18 Amiodarone HCl 100 mg PO DAILY 06/22/18 Multivit-Min/Iron/Folic/Lutein [Centrum Silver Women Tablet] 1 tab PO DAILY 06/22/18 levothyroxine 88 mcg tablet 88 mcg PO DAILY 30 Days #90 tab 07/27/18 lisinopril 40 mg tablet 40 mg PO DAILY 08/13/18 Furosemide [Lasix] 20 mg PO BIDLX 09/14/18 Acetaminophen [Tylenol] 1,000 mg PO Q8 PRN #30 tablet 09/18/18 Acyclovir [Zovirax] 1 applic TOPICAL 5X/DAY #1 tube 09/18/18 Guaifenesin [Mucinex] 1,200 mg PO BID #20 tablet 09/18/18 Insulin Glargine [Lantus SoloStar Pen] 55 units SC BREAKFAST #1 pen 09/18/18 Insulin Lispro [Humalog KwikPen] 15 unit SC TIDCM insuln.pen 09/18/18 Insulin Lispro [Humalog KwikPen] See Protocol SQ ACHS & 3AM insuln.pen 09/18/18 Losartan Potassium [Cozaar] 50 mg PO DAILY #30 tablet 09/18/18 Prednisone 10 mg PO .COMPLEX #40 tab 09/18/18 Warfarin [Coumadin] 2 mg PO DAILY #0 09/18/18 Following Prescrptions Were Given to Patient: Acyclovir [Zovirax] 1 applic TOPICAL 5X/DAY #1 tube Insulin Glargine [Lantus SoloStar Pen] 55 units SC BREAKFAST #1 pen Losartan Potassium [Cozaar] 50 mg PO DAILY #30 tablet Prednisone 10 mg PO .COMPLEX #40 tab Guaifenesin [Mucinex] 1,200 mg PO BID #20 tablet Primary Care Physician: Jovana Moulton MD [Primary Care Provider] - Please follow up with your Primary Care Physician in: within 1-2 weeks Please Follow Up With: Beto Dennis MD When: within 1-2 weeks Please Follow Up With: Jerzy Smiley MD When: in 2-4 weeks Disposition: Home Minutes spent on discharge:: 40 Patient Condition:: Stable Medical Necessity - Tobacco Use Smoking Status: Never smoker Tobacco Use: Non-smoker Meaningful Use Info Meaningful Use Diagnoses (Choose all that apply): CHF - CHF BETZAIDA/ARB ordered at discharge?: Yes Documented LVEF (%): 65 Code Visit Inpatient E&M: 95028 Disch Hosp
[2018-09-18 11:50] LABS: Bedside Glucose 163 mg/dL (70-110)
--- NOTE | 2018-09-18 12:00 | CASEMGMT ---
Per Dr. Villarreal, pt needs sent home on HHC. This RN CM spoke with therapy and they state pt does not need any therapy at discharge. This RN CM to room to speak with pt regarding discharge plan and pt declines HHC/OP therapy at this time. Pt states 'This is the best I have ever felt going home.' After explanation of CCN, pt does agree to CCN referral at this time for co-morbidities and recent admissions. Referral for CCN placed and message left with [place] at this time. Pt provided with CCN pamphlet at this time. Pt voice no further questions/concerns/needs at this time. SStaten RN CM
[2018-09-18] MEDS: Losartan Potassium 50 MG Tablet PO (12:34)
[2018-09-18] MEDS: Furosemide 20 MG Tablet PO ×2 (12:34→16:36)
[2018-09-18] MEDS: Amiodarone 200 MG Tablet 100 MG PO (12:35)
[2018-09-18 16:50] LABS: Bedside Glucose 116 mg/dL (70-110)
--- NOTE | 2018-09-21 13:58 | CASEMGMT ---
LINDSEY CM DC PHONE CALL DC DATE: 09/18/18 DC DISPOSITION: HOME WITH CCN KELY/SAM 08/11 Intro role of CM to patient via phone. Pt states she is doing well. Had questions re: her coumadin but stated she is calling Dr. Dennis to clarify. Pt is checking her blood sugars and stated they were low and is making an appointment with Dr. Moulton to check this. Pt does not feel she requires any assistance and is making appropriate decisions to contact physicians with questions. No care improvement suggestions given. Lionel NGUYENN RN ACM
--- NOTE | 2018-09-22 09:34 | CCN.REFER ---
T/C TO PATIENT TO DISCUSS CCN PER ALVARO S REQUEST. PATIENT DECLINES ANY HELP AT THIS TIME. REMINDED PATIENT ABOUT HOSPITAL FOLLOW UPS WITH BOTH CARDIOLOGY AND PCP. PHONE NUMBER LEFT WITH PATIENT IF SHE CHANGES MIND.
== END 2018-09-18 19:15 | disposition home or self-care (01) | DRG 291 ==
LOC: ED 20:14 → ICU 20:20 → PCU 09-15 15:03
PROVIDERS: Admitting Provider Hospitalist; Emergency Provider Emergency Medicine; Family Provider Internal Medicine; PCP Internal Medicine; Visit Provider Internal Medicine
DX: I13.0 Hypertensive heart and chronic kidney disease with heart failure and stage 1 through stage 4 chronic kidney disease, or unspecified chronic kidney disease (principal); I50.33 Acute on chronic diastolic (congestive) heart failure; L97.929 Non-pressure chronic ulcer of unspecified part of left lower leg with unspecified severity; L97.919 Non-pressure chronic ulcer of unspecified part of right lower leg with unspecified severity; J20.8 Acute bronchitis due to other specified organisms; Z99.81 Dependence on supplemental oxygen; I25.10 Atherosclerotic heart disease of native coronary artery without angina pectoris; E03.9 Hypothyroidism, unspecified; I48.0 Paroxysmal atrial fibrillation; I11.0 Hypertensive heart disease with heart failure; I27.20 Pulmonary hypertension, unspecified; E11.22 Type 2 diabetes mellitus with diabetic chronic kidney disease; E11.65 Type 2 diabetes mellitus with hyperglycemia; N18.3 Chronic kidney disease, stage 3 (moderate); D72.829 Elevated white blood cell count, unspecified; T38.0X5A Adverse effect of glucocorticoids and synthetic analogues, initial encounter; R79.1 Abnormal coagulation profile; Z79.899 Other long term (current) drug therapy; G47.33 Obstructive sleep apnea (adult) (pediatric); Z79.01 Long term (current) use of anticoagulants; Z79.4 Long term (current) use of insulin; Z95.1 Presence of aortocoronary bypass graft; Z95.5 Presence of coronary angioplasty implant and graft; R06.89 Other abnormalities of breathing; E78.5 Hyperlipidemia, unspecified
CPT/HCPCS: 36415; 71045; 80048; 82962; 83880; 84443; 84484; 85025; 85048; 85610; 87633; 93005; 94002; 94640; 94667; 94668; 97162; 97165; 97530; 97535; 99283; A4216; J1940

== ENCOUNTER → 2018-09-23 12:23 | Outpatient (CLI) | payer MEDICARE, SELFPAY ==
[2018-09-21 08:19] VITALS: BMI 29.6
[2018-09-23 13:14] LABS: International Normalized Ratio 1.4; Prothrombin Time (Protime)PT. 16.5 SECONDS (11.7-14.9)
[2018-09-23 13:19] LABS: PTHIN 114.3 pg/mL (18.4-80.1)
== END ==
PROVIDERS: Internal Medicine Cardiovascular Disease; Family Provider Internal Medicine; PCP Internal Medicine; Visit Provider Internal Medicine Nephrology
DX: I48.91 Unspecified atrial fibrillation (principal); Z79.01 Long term (current) use of anticoagulants; E11.22 Type 2 diabetes mellitus with diabetic chronic kidney disease; N18.4 Chronic kidney disease, stage 4 (severe); N25.81 Secondary hyperparathyroidism of renal origin
CPT/HCPCS: 36415; 83970; 85610

== ENCOUNTER 2018-09-24 11:30 | Outpatient (RCR) | payer MEDICARE, SELFPAY ==
[2018-08-28 01:53] VITALS: BP 127/43; PULSE 67; RESP 16; TEMP 36.2
[2018-08-31 11:30] VITALS: BP 130/72; PULSE 88; RESP 16; TEMP 36; BMI 29.6
[2018-09-03 09:07] VITALS: BP 128/71; PULSE 106; RESP 18; TEMP 36.5; BMI 29.6
--- NOTE | 2018-09-03 10:06 | PCM.WC.PN ---
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 Status: Chronic Current Visit: Yes Code(s): L97.522 - Non-pressure chronic ulcer of other part of left foot with fat layer exposed (2) CAD (coronary artery disease) Status: Chronic Current Visit: Yes Code(s): I25.10 - Atherosclerotic heart disease of [place] coronary artery without angina pectoris (3) Chronic ulcer of right great toe with fat layer exposed Status: Chronic Current Visit: Yes Code(s): L97.512 - Non-pressure chronic ulcer of other part of right foot with fat layer exposed (4) Diabetes mellitus type II, uncontrolled Status: Chronic Current Visit: Yes Code(s): E11.65 - Type 2 diabetes mellitus with hyperglycemia (5) Peripheral arterial disease Status: Chronic Current Visit: Yes Code(s): I73.9 - Peripheral vascular disease, unspecified Type of Wound Chief Complaint: Traumatic ulceration of left foot and chronic right great toe ulcer. History of Wound: Ms. Rothman is a 78-year-old who was referred to the wound center by her microbiology soil scientist for continued wound care. She has a chronic right great toe ulcer which she has been managing conservatively at home for about 6 months. However, she presented to a microbiology soil scientist due to left foot ulcer. She had a bowel drop on her foot about 3 weeks ago. She subsequently developed discoloration and swelling for which she was seen in the emergency room. Imaging done at that time was without any significant abnormality. Plan was to conservatively manage. However about a week ago. She noted an opening over the area with associated drainage/discharge. She was seen by her microbiology soil scientist and vacuum therapy was recommended. She reports a history of diabetes which is not well controlled. Last A1c per patient was around 9. She is currently on insulin. Progress of Wound: Stable. No new concerns at this time. - Physical Exam Vital Signs Temp Pulse Resp BP 97.7 F L 106 H 18 128/71 H 09/03/18 09:07 09/03/18 09:07 09/03/18 09:07 09/03/18 09:07 General: Alert, Oriented x3, Cooperative, No apparent distress HEENT: Atraumatic, Normocephalic Oral: Moist Mucosa Neck: Supple Lungs: Normal air movement Abdomen: Non Tender, Obese Extremities: No cyanosis, Edema Skin: Ulcer/ Wound Wound Measurements and Assessment WC - Nurse 1 - General Ulcer Measurement Start: 08/31/18 11:29 Freq: Status: Active Protocol: Activity Type Activity Date Activity User E-Sign Co-Sign Detail Recorded Client Recorded Date Recorded By Document 09/03/18 09:07 [email or web address] [id number] 09/03/18 09:30 AN 09/03/18 09:07 Wound Center Nurse 1 [Ulcer Assessment] #3 R Grt Toe Plantar -Combined with other wound No -Current Size (cm) - Length 0.5 -Current Size (cm) - Width 0.4 -Current Size (cm) - Depth 0.1 -Total Square Cm 0.20 -Photo Taken No -Epithelialization None Present -Tunneling No -Undermining/Tunneling No -Circular Undermining No -Exudate Amt None Present -Wound Margin Flat & Intact -Granulation Amt None Present (0 %) -Slough/Fibrin Yes -Necrosis Amt Large (67-100%) -Necrotic Tissue Type Eschar -Texture (Amy-wound Skin Appearance) Callus Scarring -Moisture (Amy-wound Skin Appearance Dry/Scaly ) -Color (Amy-wound Skin Appearance) Assessed -Temperature (Amy-wound Skin No Abnormality Appearance) (Pt Warm) -Tenderness on Palpation (Amy-wound No Skin Appearance) -Ulcer Cleansing Rinsed/ Irrigated with Saline -Foul Odor after Cleansing No -Anesthetic Used 5% Lidocaine Gel #2 L Foot Dorsal -Combined with other wound No -Current Size (cm) - Length 1.8 -Current Size (cm) - Width 1.2 -Current Size (cm) - Depth 0.4 -Total Square Cm 2.16 -Photo Taken No -Epithelialization None Present -Tunneling No -Undermining/Tunneling No -Circular Undermining No -Exudate Amt Small -Exudate Type Serous -Wound Margin Distinct, Outline Attached -Granulation Amt Small (1-33%) -Granulation Quality Red -Slough/Fibrin Yes -Necrosis Amt Medium (34-66%) -Necrotic Tissue Type Adherent Slough -Texture (Amy-wound Skin Appearance) Assessed Scarring -Moisture (Amy-wound Skin Appearance Assessed ) Dry/Scaly -Color (Amy-wound Skin Appearance) Assessed Erythema -Temperature (Amy-wound Skin No Abnormality Appearance) (Pt Warm) -Tenderness on Palpation (Amy-wound No Skin Appearance) -Ulcer Cleansing Wound Cleanser -Foul Odor after Cleansing No -Anesthetic Used 5% Lidocaine Gel [Edema Assessment] -Lower Limb Edema Present Yes -Left Calf (cm) 38.9 -Left Ankle (cm) 20.7 JAVED - Nurse 2 - General Ulcer CM Notes Start: 08/31/18 11:29 Freq: Status: Active Protocol: Activity Type Activity Date Activity User E-Sign Co-Sign Detail Recorded Client Recorded Date Recorded By Document 09/03/18 09:42 MW [id number] 09/03/18 09:52 MW 09/03/18 09:42 Wound Center Nurse 2 [Procedure/Treatment] #3 R Grt Toe Plantar -Time 09:45 -Correct Patient Yes -Correct Side, Site, Position Yes -Correct Procedure Yes -Procedure Performed Yes -Type of Procedure Debridement -Clinical Debridement Subcutaneous -Post Debridement Size (cm) - Length 0.3 -Post Debridement Size (cm) - Width 0.3 -Post Debridement Size (cm) - Depth 0.1 -Total Square Cm 0.09 -Wound/Ulcer Outcome Not Healed -Ulcer Cleansing Rinsed/ Irrigated with Saline -Foul Odor after Cleansing No -Bioengineered Tissue No -Bleeding Controlled with Pressure -Offloading Yes -Type of Offloading Surgical Shoe -Treatment Response Procedure Tolerated Well #2 L Foot Dorsal -Time 09:44 -Correct Patient Yes -Correct Side, Site, Position Yes -Correct Procedure Yes -Procedure Performed Yes -Type of Procedure Debridement -Clinical Debridement Subcutaneous -Post Debridement Size (cm) - Length 1.7 -Post Debridement Size (cm) - Width 1.2 -Post Debridement Size (cm) - Depth 0.3 -Total Square Cm 2.04 -Wound/Ulcer Outcome Not Healed -Ulcer Cleansing Rinsed/ Irrigated with Saline -Foul Odor after Cleansing No -Bioengineered Tissue No -Bleeding Controlled with Pressure -Offloading Yes -Type of Offloading Surgical Shoe -Treatment Response Procedure Tolerated Well [See Physician Procedure note for Specifics] Pain Scale: 0-10 Numeric [Pain] -Is Patient Pain Free? Yes Musculoskeletal: No Muscle Wasting Neurological: Cranial nerves II-XII grossly intact Psych/Mental Status: Normal Affect Debridement Note Post-Debridement Measurements/Treatment JAVED - Nurse 2 - General Ulcer CM Notes Start: 08/31/18 11:29 Freq: Status: Active Protocol: Activity Type Activity Date Activity User E-Sign Co-Sign Detail Recorded Client Recorded Date Recorded By Document 09/03/18 09:42 MW [id number] 09/03/18 09:52 MW 09/03/18 09:42 Wound Center Nurse 2 #3 R Grt Toe Plantar -Time 09:45 -Correct Patient Yes -Correct Side, Site, Position Yes -Correct Procedure Yes -Procedure Performed Yes -Type of Procedure Debridement -Clinical Debridement Subcutaneous -Post Debridement Size (cm) - Length 0.3 -Post Debridement Size (cm) - Width 0.3 -Post Debridement Size (cm) - Depth 0.1 -Total Square Cm 0.09 -Wound/Ulcer Outcome Not Healed -Ulcer Cleansing Rinsed/ Irrigated with Saline -Foul Odor after Cleansing No -Bioengineered Tissue No -Bleeding Controlled with Pressure -Offloading Yes -Type of Offloading Surgical Shoe -Treatment Response Procedure Tolerated Well #2 L Foot Dorsal -Time 09:44 -Correct Patient Yes -Correct Side, Site, Position Yes -Correct Procedure Yes -Procedure Performed Yes -Type of Procedure Debridement -Clinical Debridement Subcutaneous -Post Debridement Size (cm) - Length 1.7 -Post Debridement Size (cm) - Width 1.2 -Post Debridement Size (cm) - Depth 0.3 -Total Square Cm 2.04 -Wound/Ulcer Outcome Not Healed -Ulcer Cleansing Rinsed/ Irrigated with Saline -Foul Odor after Cleansing No -Bioengineered Tissue No -Bleeding Controlled with Pressure -Offloading Yes -Type of Offloading Surgical Shoe -Treatment Response Procedure Tolerated Well Pain Scale: 0-10 Numeric Is Patient Pain Free? Yes Wound debrided: Left foot Wound Grade/Stage: Stage III Type of Debridement: Excisional debridement Anesthesia Used: 5% Lidocaine Gel Depth: Down to and including healthy tissue, in the subcutaneous layer Percentage of wound debrided: 100 Instrument Used: 3mm curette Tissue Removed: Slough and devitalized tissue Severity: Fat Layer Exposed Amount of bleeding with debridement: Mild Bleeding Controlled with: Pressure Patient tolerated procedure well - Additional Wound Wound debrided: Right great toe Wound Grade/Stage: Stage II Type of Debridement: Excisional debridement Anesthesia Used: 5% Lidocaine Gel Depth: Down to and including healthy tissue, in the subcutaneous layer Percentage of wound debrided: 100 Instrument Used: 3mm curette Tissue Removed: Slough and devitalized tissue Severity: Fat Layer Exposed Amount of bleeding with debridement: Mild Bleeding Controlled with: Pressure Patient tolerated procedure: Patient tolerated procedure well Assessment/Plan Active Problems (Last Reviewed 07/16/18 @ 14:10 by MADELEINE SolorioC) Chronic ulcer of right great toe with fat layer exposed (Chronic) Traumatic ulcer of left foot with fat layer exposed (Chronic) Peripheral arterial disease (Chronic) CAD (coronary artery disease) (Chronic) Diabetes mellitus type II, uncontrolled (Chronic) Assessment: Traumatic ulcer of the left dorsal foot and chronic right great toe ulcer in a patient with poorly controlled diabetes mellitus. Plan: Debridement of both ulcers done as documented above. Procedure was well-tolerated. Continue snap VAC to the left dorsal foot. Follow-up on Friday for a nurse visit for change. Continue Promogran with Adaptic over top to the right great toe. Leave in place till friday. Will change dressings here. Elevate lower extremities when sitted and in bed. SurePress for edema management. Increased protein intake recommended. Optimal blood sugar control also strongly recommended. She was advised to follow-up with her PCP to adjust her insulin. All her questions were answered and she was advised to call with any further questions or concerns. Follow-up in 1 week. This note was generated with [employer] software. It may contain incorrect words, spelling, and punctuation that were not noted in checking the note before signing.
--- NOTE | 2018-09-03 10:11 | PN.PCM_ITS ---
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 Status: Chronic Current Visit: Yes Code(s): L97.522 - Non-pressure chronic ulcer of other part of left foot with fat layer exposed (2) CAD (coronary artery disease) Status: Chronic Current Visit: Yes Code(s): I25.10 - Atherosclerotic heart disease of [place] coronary artery without angina pectoris (3) Chronic ulcer of right great toe with fat layer exposed Status: Chronic Current Visit: Yes Code(s): L97.512 - Non-pressure chronic ulcer of other part of right foot with fat layer exposed (4) Diabetes mellitus type II, uncontrolled Status: Chronic Current Visit: Yes Code(s): E11.65 - Type 2 diabetes mellitus with hyperglycemia (5) Peripheral arterial disease Status: Chronic Current Visit: Yes Code(s): I73.9 - Peripheral vascular disease, unspecified Type of Wound Chief Complaint: Traumatic ulceration of left foot and chronic right great toe ulcer. History of Wound: Ms. Rothman is a 78-year-old who was referred to the wound center by her individual pension adviser for continued wound care. She has a chronic right great toe ulcer which she has been managing conservatively at home for about 6 months. However, she presented to a individual pension adviser due to left foot ulcer. She had a bowel drop on her foot about 3 weeks ago. She subsequently developed discoloration and swelling for which she was seen in the emergency room. Imaging done at that time was without any significant abnormality. Plan was to conservatively manage. However about a week ago. She noted an opening over the area with associated drainage/discharge. She was seen by her individual pension adviser and vacuum therapy was recommended. She reports a history of diabetes which is not well controlled. Last A1c per patient was around 9. She is currently on insulin. Progress of Wound: Stable. No new concerns at this time. - Physical Exam Vital Signs Temp Pulse Resp BP 97.7 F L 106 H 18 128/71 H 09/03/18 09:07 09/03/18 09:07 09/03/18 09:07 09/03/18 09:07 General: Alert, Oriented x3, Cooperative, No apparent distress HEENT: Atraumatic, Normocephalic Oral: Moist Mucosa Neck: Supple Lungs: Normal air movement Abdomen: Non Tender, Obese Extremities: No cyanosis, Edema Skin: Ulcer/ Wound Wound Measurements and Assessment WC - Nurse 1 - General Ulcer Measurement Start: 08/31/18 11:29 Freq: Status: Active Protocol: Activity Type Activity Date Activity User E-Sign Co-Sign Detail Recorded Client Recorded Date Recorded By Document 09/03/18 09:07 [email or web address] [id number] 09/03/18 09:30 AN 09/03/18 09:07 Wound Center Nurse 1 [Ulcer Assessment] #3 R Grt Toe Plantar -Combined with other wound No -Current Size (cm) - Length 0.5 -Current Size (cm) - Width 0.4 -Current Size (cm) - Depth 0.1 -Total Square Cm 0.20 -Photo Taken No -Epithelialization None Present -Tunneling No -Undermining/Tunneling No -Circular Undermining No -Exudate Amt None Present -Wound Margin Flat & Intact -Granulation Amt None Present (0 %) -Slough/Fibrin Yes -Necrosis Amt Large (67-100%) -Necrotic Tissue Type Eschar -Texture (Amy-wound Skin Appearance) Callus Scarring -Moisture (Amy-wound Skin Appearance Dry/Scaly ) -Color (Amy-wound Skin Appearance) Assessed -Temperature (Amy-wound Skin No Abnormality Appearance) (Pt Warm) -Tenderness on Palpation (Amy-wound No Skin Appearance) -Ulcer Cleansing Rinsed/ Irrigated with Saline -Foul Odor after Cleansing No -Anesthetic Used 5% Lidocaine Gel #2 L Foot Dorsal -Combined with other wound No -Current Size (cm) - Length 1.8 -Current Size (cm) - Width 1.2 -Current Size (cm) - Depth 0.4 -Total Square Cm 2.16 -Photo Taken No -Epithelialization None Present -Tunneling No -Undermining/Tunneling No -Circular Undermining No -Exudate Amt Small -Exudate Type Serous -Wound Margin Distinct, Outline Attached -Granulation Amt Small (1-33%) -Granulation Quality Red -Slough/Fibrin Yes -Necrosis Amt Medium (34-66%) -Necrotic Tissue Type Adherent Slough -Texture (Amy-wound Skin Appearance) Assessed Scarring -Moisture (Amy-wound Skin Appearance Assessed ) Dry/Scaly -Color (Amy-wound Skin Appearance) Assessed Erythema -Temperature (Amy-wound Skin No Abnormality Appearance) (Pt Warm) -Tenderness on Palpation (Amy-wound No Skin Appearance) -Ulcer Cleansing Wound Cleanser -Foul Odor after Cleansing No -Anesthetic Used 5% Lidocaine Gel [Edema Assessment] -Lower Limb Edema Present Yes -Left Calf (cm) 38.9 -Left Ankle (cm) 20.7 JAVED - Nurse 2 - General Ulcer CM Notes Start: 08/31/18 11:29 Freq: Status: Active Protocol: Activity Type Activity Date Activity User E-Sign Co-Sign Detail Recorded Client Recorded Date Recorded By Document 09/03/18 09:42 MW [id number] 09/03/18 09:52 MW 09/03/18 09:42 Wound Center Nurse 2 [Procedure/Treatment] #3 R Grt Toe Plantar -Time 09:45 -Correct Patient Yes -Correct Side, Site, Position Yes -Correct Procedure Yes -Procedure Performed Yes -Type of Procedure Debridement -Clinical Debridement Subcutaneous -Post Debridement Size (cm) - Length 0.3 -Post Debridement Size (cm) - Width 0.3 -Post Debridement Size (cm) - Depth 0.1 -Total Square Cm 0.09 -Wound/Ulcer Outcome Not Healed -Ulcer Cleansing Rinsed/ Irrigated with Saline -Foul Odor after Cleansing No -Bioengineered Tissue No -Bleeding Controlled with Pressure -Offloading Yes -Type of Offloading Surgical Shoe -Treatment Response Procedure Tolerated Well #2 L Foot Dorsal -Time 09:44 -Correct Patient Yes -Correct Side, Site, Position Yes -Correct Procedure Yes -Procedure Performed Yes -Type of Procedure Debridement -Clinical Debridement Subcutaneous -Post Debridement Size (cm) - Length 1.7 -Post Debridement Size (cm) - Width 1.2 -Post Debridement Size (cm) - Depth 0.3 -Total Square Cm 2.04 -Wound/Ulcer Outcome Not Healed -Ulcer Cleansing Rinsed/ Irrigated with Saline -Foul Odor after Cleansing No -Bioengineered Tissue No -Bleeding Controlled with Pressure -Offloading Yes -Type of Offloading Surgical Shoe -Treatment Response Procedure Tolerated Well [See Physician Procedure note for Specifics] Pain Scale: 0-10 Numeric [Pain] -Is Patient Pain Free? Yes Musculoskeletal: No Muscle Wasting Neurological: Cranial nerves II-XII grossly intact Psych/Mental Status: Normal Affect Debridement Note Post-Debridement Measurements/Treatment JAVED - Nurse 2 - General Ulcer CM Notes Start: 08/31/18 11:29 Freq: Status: Active Protocol: Activity Type Activity Date Activity User E-Sign Co-Sign Detail Recorded Client Recorded Date Recorded By Document 09/03/18 09:42 MW [id number] 09/03/18 09:52 MW 09/03/18 09:42 Wound Center Nurse 2 #3 R Grt Toe Plantar -Time 09:45 -Correct Patient Yes -Correct Side, Site, Position Yes -Correct Procedure Yes -Procedure Performed Yes -Type of Procedure Debridement -Clinical Debridement Subcutaneous -Post Debridement Size (cm) - Length 0.3 -Post Debridement Size (cm) - Width 0.3 -Post Debridement Size (cm) - Depth 0.1 -Total Square Cm 0.09 -Wound/Ulcer Outcome Not Healed -Ulcer Cleansing Rinsed/ Irrigated with Saline -Foul Odor after Cleansing No -Bioengineered Tissue No -Bleeding Controlled with Pressure -Offloading Yes -Type of Offloading Surgical Shoe -Treatment Response Procedure Tolerated Well #2 L Foot Dorsal -Time 09:44 -Correct Patient Yes -Correct Side, Site, Position Yes -Correct Procedure Yes -Procedure Performed Yes -Type of Procedure Debridement -Clinical Debridement Subcutaneous -Post Debridement Size (cm) - Length 1.7 -Post Debridement Size (cm) - Width 1.2 -Post Debridement Size (cm) - Depth 0.3 -Total Square Cm 2.04 -Wound/Ulcer Outcome Not Healed -Ulcer Cleansing Rinsed/ Irrigated with Saline -Foul Odor after Cleansing No -Bioengineered Tissue No -Bleeding Controlled with Pressure -Offloading Yes -Type of Offloading Surgical Shoe -Treatment Response Procedure Tolerated Well Pain Scale: 0-10 Numeric Is Patient Pain Free? Yes Wound debrided: Left foot Wound Grade/Stage: Stage III Type of Debridement: Excisional debridement Anesthesia Used: 5% Lidocaine Gel Depth: Down to and including healthy tissue, in the subcutaneous layer Percentage of wound debrided: 100 Instrument Used: 3mm curette Tissue Removed: Slough and devitalized tissue Severity: Fat Layer Exposed Amount of bleeding with debridement: Mild Bleeding Controlled with: Pressure Patient tolerated procedure well - Additional Wound Wound debrided: Right great toe Wound Grade/Stage: Stage II Type of Debridement: Excisional debridement Anesthesia Used: 5% Lidocaine Gel Depth: Down to and including healthy tissue, in the subcutaneous layer Percentage of wound debrided: 100 Instrument Used: 3mm curette Tissue Removed: Slough and devitalized tissue Severity: Fat Layer Exposed Amount of bleeding with debridement: Mild Bleeding Controlled with: Pressure Patient tolerated procedure: Patient tolerated procedure well Assessment/Plan Active Problems (Last Reviewed 07/16/18 @ 14:10 by MADELEINE SolorioC) Chronic ulcer of right great toe with fat layer exposed (Chronic) Traumatic ulcer of left foot with fat layer exposed (Chronic) Peripheral arterial disease (Chronic) CAD (coronary artery disease) (Chronic) Diabetes mellitus type II, uncontrolled (Chronic) Assessment: Traumatic ulcer of the left dorsal foot and chronic right great toe ulcer in a patient with poorly controlled diabetes mellitus. Plan: Debridement of both ulcers done as documented above. Procedure was well- tolerated. Continue snap VAC to the left dorsal foot. Follow-up on Friday for a nurse visit for change. Continue Promogran with Adaptic over top to the right great toe. Leave in place till friday. Will change dressings here. Elevate lower extremities when sitted and in bed. SurePress for edema management. Increased protein intake recommended. Optimal blood sugar control also strongly recommended. She was advised to follow-up with her PCP to adjust her insulin. All her questions were answered and she was advised to call with any further questions or concerns. Follow-up in 1 week. This note was generated with [employer] software. It may contain incorrect words, spelling, and punctuation that were not noted in checking the note before signing.
[2018-09-07 11:29] VITALS: BP 151/75; PULSE 58; RESP 18; TEMP 36.5; BMI 29.6
[2018-09-10 09:19] VITALS: BP 123/72; PULSE 57; RESP 16; TEMP 36.3; BMI 29.6
--- NOTE | 2018-09-10 11:07 | PCM.WC.PN ---
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 Status: Chronic Current Visit: Yes Code(s): L97.522 - Non-pressure chronic ulcer of other part of left foot with fat layer exposed (2) CAD (coronary artery disease) Status: Chronic Current Visit: Yes Code(s): I25.10 - Atherosclerotic heart disease of [place] coronary artery without angina pectoris (3) Chronic ulcer of right great toe with fat layer exposed Status: Chronic Current Visit: Yes Code(s): L97.512 - Non-pressure chronic ulcer of other part of right foot with fat layer exposed (4) Diabetes mellitus type II, uncontrolled Status: Chronic Current Visit: Yes Code(s): E11.65 - Type 2 diabetes mellitus with hyperglycemia (5) Peripheral arterial disease Status: Chronic Current Visit: Yes Code(s): I73.9 - Peripheral vascular disease, unspecified Type of Wound Chief Complaint: Traumatic ulceration of left foot and chronic right great toe ulcer. History of Wound: Ms. Rothman is a 78-year-old who was referred to the wound center by her director of teenage activities for continued wound care. She has a chronic right great toe ulcer which she has been managing conservatively at home for about 6 months. However, she presented to a director of teenage activities due to left foot ulcer. She had a bowel drop on her foot about 3 weeks ago. She subsequently developed discoloration and swelling for which she was seen in the emergency room. Imaging done at that time was without any significant abnormality. Plan was to conservatively manage. However about a week ago. She noted an opening over the area with associated drainage/discharge. She was seen by her director of teenage activities and vacuum therapy was recommended. She reports a history of diabetes which is not well controlled. Last A1c per patient was around 9. She is currently on insulin. Progress of Wound: Stable. Patient had some problems with the snap VAC. No other concerns. - Physical Exam Vital Signs Temp Pulse Resp BP 97.3 F L 57 L 16 123/72 H 09/10/18 09:19 09/10/18 09:19 09/10/18 09:19 09/10/18 09:19 General: Alert, Oriented x3, Cooperative, No apparent distress HEENT: Atraumatic, Normocephalic Oral: Moist Mucosa Neck: Supple Lungs: Normal air movement Abdomen: Non Tender Extremities: No cyanosis Skin: Ulcer/ Wound Wound Measurements and Assessment WC - Nurse 1 - General Ulcer Measurement Start: 08/31/18 11:29 Freq: Status: Active Protocol: Activity Type Activity Date Activity User E-Sign Co-Sign Detail Recorded Client Recorded Date Recorded By Document 09/10/18 09:19 MW [id number] 09/10/18 09:26 MW 09/10/18 09:19 Wound Center Nurse 1 [Ulcer Assessment] #3 R Grt Toe Plantar -Combined with other wound No -Current Size (cm) - Length 0.5 -Current Size (cm) - Width 0.5 -Current Size (cm) - Depth 0.1 -Total Square Cm 0.25 -Photo Taken No -Epithelialization None Present -Tunneling No -Undermining/Tunneling No -Circular Undermining No -Exudate Amt None Present -Wound Margin Flat & Intact -Granulation Amt None Present (0 %) -Granulation Quality N/A -Slough/Fibrin Yes -Necrosis Amt Large (67-100%) -Necrotic Tissue Type Adherent Slough -Structure Exposed N/A -Texture (Amy-wound Skin Appearance) Assessed Callus Localized Edema -Moisture (Amy-wound Skin Appearance Assessed ) Dry/Scaly -Color (Amy-wound Skin Appearance) No Abnormality Assessed -Temperature (Amy-wound Skin No Abnormality Appearance) (Pt Warm) -Tenderness on Palpation (Amy-wound No Skin Appearance) -Ulcer Cleansing soap and water -Foul Odor after Cleansing No -Anesthetic Used 4% Lidocaine Solution #2 L Foot Dorsal -Combined with other wound No -Current Size (cm) - Length 1.7 -Current Size (cm) - Width 1.2 -Current Size (cm) - Depth 0.3 -Total Square Cm 2.04 -Photo Taken No -Epithelialization Small 1-33% -Tunneling No -Undermining/Tunneling No -Circular Undermining No -Exudate Amt Small -Exudate Type Serosanguineous -Wound Margin Flat & Intact -Granulation Amt Large (67-100%) -Granulation Quality [place] -Slough/Fibrin Yes -Necrosis Amt Small (1-33%) -Necrotic Tissue Type Adherent Slough -Structure Exposed N/A -Texture (Amy-wound Skin Appearance) Assessed Localized Edema Scarring -Moisture (Amy-wound Skin Appearance No Abnormality ) Assessed -Color (Amy-wound Skin Appearance) No Abnormality Assessed -Temperature (Amy-wound Skin No Abnormality Appearance) (Pt Warm) -Tenderness on Palpation (Amy-wound No Skin Appearance) -Ulcer Cleansing soap and water [Edema Assessment] -Lower Limb Edema Present Yes -Right Calf (cm) 36.2 -Right Ankle (cm) 21.5 -Left Calf (cm) 36.7 -Left Ankle (cm) 21.7 JAVED - Nurse 2 - General Ulcer CM Notes Start: 08/31/18 11:29 Freq: Status: Active Protocol: Activity Type Activity Date Activity User E-Sign Co-Sign Detail Recorded Client Recorded Date Recorded By Document 09/10/18 09:32 MW [id number] 09/10/18 09:41 MW 09/10/18 09:32 Wound Center Nurse 2 [Procedure/Treatment] #3 R Grt Toe Plantar -Time 09:34 -Correct Patient Yes -Correct Side, Site, Position Yes -Correct Procedure Yes -Procedure Performed Yes -Type of Procedure Debridement -Clinical Debridement Subcutaneous -Post Debridement Size (cm) - Length 0.4 -Post Debridement Size (cm) - Width 0.4 -Post Debridement Size (cm) - Depth 0.2 -Total Square Cm 0.16 -Wound/Ulcer Outcome Not Healed -Ulcer Cleansing Rinsed/ Irrigated with Saline -Foul Odor after Cleansing No -Bioengineered Tissue No -Bleeding Controlled with Pressure -Offloading No -Treatment Response Procedure Tolerated Well #2 L Foot Dorsal -Time 09:33 -Correct Patient Yes -Correct Side, Site, Position Yes -Correct Procedure Yes -Procedure Performed Yes -Type of Procedure Debridement -Clinical Debridement Subcutaneous -Post Debridement Size (cm) - Length 1.5 -Post Debridement Size (cm) - Width 1.2 -Post Debridement Size (cm) - Depth 0.3 -Total Square Cm 1.80 -Wound/Ulcer Outcome Not Healed -Ulcer Cleansing Rinsed/ Irrigated with Saline -Foul Odor after Cleansing No -Bioengineered Tissue No -Bleeding Controlled with Pressure -Offloading No -Treatment Response Procedure Tolerated Well [See Physician Procedure note for Specifics] Pain Scale: 0-10 Numeric [Pain] -Is Patient Pain Free? Yes Musculoskeletal: No Muscle Wasting Neurological: Cranial nerves II-XII grossly intact Psych/Mental Status: Normal Affect Debridement Note Post-Debridement Measurements/Treatment JAVED - Nurse 2 - General Ulcer CM Notes Start: 08/31/18 11:29 Freq: Status: Active Protocol: Activity Type Activity Date Activity User E-Sign Co-Sign Detail Recorded Client Recorded Date Recorded By Document 09/03/18 09:42 MW [id number] 09/03/18 09:52 MW Document 09/10/18 09:32 MW [id number] 09/10/18 09:41 MW 09/03/18 09/10/18 09:42 09:32 Wound Center Nurse 2 #3 R Grt Toe Plantar -Time 09:45 09:34 -Correct Patient Yes Yes -Correct Side, Site, Position Yes Yes -Correct Procedure Yes Yes -Procedure Performed Yes Yes -Type of Procedure Debridement Debridement -Clinical Debridement Subcutaneous Subcutaneous -Post Debridement Size (cm) - Length 0.3 0.4 -Post Debridement Size (cm) - Width 0.3 0.4 -Post Debridement Size (cm) - Depth 0.1 0.2 -Total Square Cm 0.09 0.16 -Wound/Ulcer Outcome Not Healed Not Healed -Ulcer Cleansing Rinsed/ Rinsed/ Irrigated with Irrigated with Saline Saline -Foul Odor after Cleansing No No -Bioengineered Tissue No No -Bleeding Controlled with Pressure Pressure -Offloading Yes No -Type of Offloading Surgical Shoe -Treatment Response Procedure Procedure Tolerated Well Tolerated Well #2 L Foot Dorsal -Time 09:44 09:33 -Correct Patient Yes Yes -Correct Side, Site, Position Yes Yes -Correct Procedure Yes Yes -Procedure Performed Yes Yes -Type of Procedure Debridement Debridement -Clinical Debridement Subcutaneous Subcutaneous -Post Debridement Size (cm) - Length 1.7 1.5 -Post Debridement Size (cm) - Width 1.2 1.2 -Post Debridement Size (cm) - Depth 0.3 0.3 -Total Square Cm 2.04 1.80 -Wound/Ulcer Outcome Not Healed Not Healed -Ulcer Cleansing Rinsed/ Rinsed/ Irrigated with Irrigated with Saline Saline -Foul Odor after Cleansing No No -Bioengineered Tissue No No -Bleeding Controlled with Pressure Pressure -Offloading Yes No -Type of Offloading Surgical Shoe -Treatment Response Procedure Procedure Tolerated Well Tolerated Well Pain Scale: 0-10 Numeric Is Patient Pain Free? Yes Yes Wound debrided: Left dorsal foot Wound Grade/Stage: Stage III Type of Debridement: Excisional debridement Anesthesia Used: 4% Lidocaine Solution Depth: Down to and including healthy tissue, in the subcutaneous layer Percentage of wound debrided: 100 Instrument Used: 5mm curette Tissue Removed: Slough and devitalized tissue Severity: Fat Layer Exposed Amount of bleeding with debridement: Mild Bleeding Controlled with: Pressure Patient tolerated procedure well - Additional Wound Wound debrided: Right great toe Wound Grade/Stage: Stage II Type of Debridement: Excisional debridement Anesthesia Used: 4% Lidocaine Solution Depth: Down to and including healthy tissue, in the subcutaneous layer Percentage of wound debrided: 100 Instrument Used: 3mm curette Tissue Removed: Slough and devitalized tissue Severity: Fat Layer Exposed Amount of bleeding with debridement: Mild Bleeding Controlled with: Pressure Patient tolerated procedure: Patient tolerated procedure well Assessment/Plan Active Problems (Last Reviewed 07/16/18 @ 14:10 by Vicky Arzate NP-C) Chronic ulcer of right great toe with fat layer exposed (Chronic) Traumatic ulcer of left foot with fat layer exposed (Chronic) Peripheral arterial disease (Chronic) CAD (coronary artery disease) (Chronic) Diabetes mellitus type II, uncontrolled (Chronic) Assessment: Traumatic ulcer of the left dorsal foot and chronic right great toe ulcer in a patient with poorly controlled diabetes mellitus. Plan: Left dorsal foot improving, right great toe with no significant change. Again dried blood noted. Debridement of both ulcers done as documented above. Procedure was well-tolerated. Continue snap VAC to the left dorsal foot. Follow-up on Friday for a nurse visit for change. Continue Promogran with Adaptic over top to the right great toe. Change daily. SurePress for edema management. Offloading strongly recommended for right lower extremity. Advised to follow-up with her director of teenage activities for proper fitting. Increased protein intake recommended. Optimal blood sugar control also strongly recommended. She was advised to follow-up with her PCP to adjust her insulin. All her questions were answered and she was advised to call with any further questions or concerns. Follow-up in 1 week. This note was generated with [employer] software. It may contain incorrect words, spelling, and punctuation that were not noted in checking the note before signing.
--- NOTE | 2018-09-10 11:12 | PN.PCM_ITS ---
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 Status: Chronic Current Visit: Yes Code(s): L97.522 - Non-pressure chronic ulcer of other part of left foot with fat layer exposed (2) CAD (coronary artery disease) Status: Chronic Current Visit: Yes Code(s): I25.10 - Atherosclerotic heart disease of [place] coronary artery without angina pectoris (3) Chronic ulcer of right great toe with fat layer exposed Status: Chronic Current Visit: Yes Code(s): L97.512 - Non-pressure chronic ulcer of other part of right foot with fat layer exposed (4) Diabetes mellitus type II, uncontrolled Status: Chronic Current Visit: Yes Code(s): E11.65 - Type 2 diabetes mellitus with hyperglycemia (5) Peripheral arterial disease Status: Chronic Current Visit: Yes Code(s): I73.9 - Peripheral vascular disease, unspecified Type of Wound Chief Complaint: Traumatic ulceration of left foot and chronic right great toe ulcer. History of Wound: Ms. Rothman is a 78-year-old who was referred to the wound center by her commercial credit analyst for continued wound care. She has a chronic right great toe ulcer which she has been managing conservatively at home for about 6 months. However, she presented to a commercial credit analyst due to left foot ulcer. She had a bowel drop on her foot about 3 weeks ago. She subsequently developed discoloration and swelling for which she was seen in the emergency room. Imaging done at that time was without any significant abnormality. Plan was to conservatively manage. However about a week ago. She noted an opening over the area with associated drainage/discharge. She was seen by her commercial credit analyst and vacuum therapy was recommended. She reports a history of diabetes which is not well controlled. Last A1c per patient was around 9. She is currently on insulin. Progress of Wound: Stable. Patient had some problems with the snap VAC. No other concerns. - Physical Exam Vital Signs Temp Pulse Resp BP 97.3 F L 57 L 16 123/72 H 09/10/18 09:19 09/10/18 09:19 09/10/18 09:19 09/10/18 09:19 General: Alert, Oriented x3, Cooperative, No apparent distress HEENT: Atraumatic, Normocephalic Oral: Moist Mucosa Neck: Supple Lungs: Normal air movement Abdomen: Non Tender Extremities: No cyanosis Skin: Ulcer/ Wound Wound Measurements and Assessment WC - Nurse 1 - General Ulcer Measurement Start: 08/31/18 11:29 Freq: Status: Active Protocol: Activity Type Activity Date Activity User E-Sign Co-Sign Detail Recorded Client Recorded Date Recorded By Document 09/10/18 09:19 MW [id number] 09/10/18 09:26 MW 09/10/18 09:19 Wound Center Nurse 1 [Ulcer Assessment] #3 R Grt Toe Plantar -Combined with other wound No -Current Size (cm) - Length 0.5 -Current Size (cm) - Width 0.5 -Current Size (cm) - Depth 0.1 -Total Square Cm 0.25 -Photo Taken No -Epithelialization None Present -Tunneling No -Undermining/Tunneling No -Circular Undermining No -Exudate Amt None Present -Wound Margin Flat & Intact -Granulation Amt None Present (0 %) -Granulation Quality N/A -Slough/Fibrin Yes -Necrosis Amt Large (67-100%) -Necrotic Tissue Type Adherent Slough -Structure Exposed N/A -Texture (Amy-wound Skin Appearance) Assessed Callus Localized Edema -Moisture (Amy-wound Skin Appearance Assessed ) Dry/Scaly -Color (Amy-wound Skin Appearance) No Abnormality Assessed -Temperature (Amy-wound Skin No Abnormality Appearance) (Pt Warm) -Tenderness on Palpation (Amy-wound No Skin Appearance) -Ulcer Cleansing soap and water -Foul Odor after Cleansing No -Anesthetic Used 4% Lidocaine Solution #2 L Foot Dorsal -Combined with other wound No -Current Size (cm) - Length 1.7 -Current Size (cm) - Width 1.2 -Current Size (cm) - Depth 0.3 -Total Square Cm 2.04 -Photo Taken No -Epithelialization Small 1-33% -Tunneling No -Undermining/Tunneling No -Circular Undermining No -Exudate Amt Small -Exudate Type Serosanguineous -Wound Margin Flat & Intact -Granulation Amt Large (67-100%) -Granulation Quality [place] -Slough/Fibrin Yes -Necrosis Amt Small (1-33%) -Necrotic Tissue Type Adherent Slough -Structure Exposed N/A -Texture (Amy-wound Skin Appearance) Assessed Localized Edema Scarring -Moisture (Amy-wound Skin Appearance No Abnormality ) Assessed -Color (Amy-wound Skin Appearance) No Abnormality Assessed -Temperature (Amy-wound Skin No Abnormality Appearance) (Pt Warm) -Tenderness on Palpation (Amy-wound No Skin Appearance) -Ulcer Cleansing soap and water [Edema Assessment] -Lower Limb Edema Present Yes -Right Calf (cm) 36.2 -Right Ankle (cm) 21.5 -Left Calf (cm) 36.7 -Left Ankle (cm) 21.7 JAVED - Nurse 2 - General Ulcer CM Notes Start: 08/31/18 11:29 Freq: Status: Active Protocol: Activity Type Activity Date Activity User E-Sign Co-Sign Detail Recorded Client Recorded Date Recorded By Document 09/10/18 09:32 MW [id number] 09/10/18 09:41 MW 09/10/18 09:32 Wound Center Nurse 2 [Procedure/Treatment] #3 R Grt Toe Plantar -Time 09:34 -Correct Patient Yes -Correct Side, Site, Position Yes -Correct Procedure Yes -Procedure Performed Yes -Type of Procedure Debridement -Clinical Debridement Subcutaneous -Post Debridement Size (cm) - Length 0.4 -Post Debridement Size (cm) - Width 0.4 -Post Debridement Size (cm) - Depth 0.2 -Total Square Cm 0.16 -Wound/Ulcer Outcome Not Healed -Ulcer Cleansing Rinsed/ Irrigated with Saline -Foul Odor after Cleansing No -Bioengineered Tissue No -Bleeding Controlled with Pressure -Offloading No -Treatment Response Procedure Tolerated Well #2 L Foot Dorsal -Time 09:33 -Correct Patient Yes -Correct Side, Site, Position Yes -Correct Procedure Yes -Procedure Performed Yes -Type of Procedure Debridement -Clinical Debridement Subcutaneous -Post Debridement Size (cm) - Length 1.5 -Post Debridement Size (cm) - Width 1.2 -Post Debridement Size (cm) - Depth 0.3 -Total Square Cm 1.80 -Wound/Ulcer Outcome Not Healed -Ulcer Cleansing Rinsed/ Irrigated with Saline -Foul Odor after Cleansing No -Bioengineered Tissue No -Bleeding Controlled with Pressure -Offloading No -Treatment Response Procedure Tolerated Well [See Physician Procedure note for Specifics] Pain Scale: 0-10 Numeric [Pain] -Is Patient Pain Free? Yes Musculoskeletal: No Muscle Wasting Neurological: Cranial nerves II-XII grossly intact Psych/Mental Status: Normal Affect Debridement Note Post-Debridement Measurements/Treatment JAVED - Nurse 2 - General Ulcer CM Notes Start: 08/31/18 11:29 Freq: Status: Active Protocol: Activity Type Activity Date Activity User E-Sign Co-Sign Detail Recorded Client Recorded Date Recorded By Document 09/03/18 09:42 MW [id number] 09/03/18 09:52 MW Document 09/10/18 09:32 MW [id number] 09/10/18 09:41 MW 09/03/18 09/10/18 09:42 09:32 Wound Center Nurse 2 #3 R Grt Toe Plantar -Time 09:45 09:34 -Correct Patient Yes Yes -Correct Side, Site, Position Yes Yes -Correct Procedure Yes Yes -Procedure Performed Yes Yes -Type of Procedure Debridement Debridement -Clinical Debridement Subcutaneous Subcutaneous -Post Debridement Size (cm) - Length 0.3 0.4 -Post Debridement Size (cm) - Width 0.3 0.4 -Post Debridement Size (cm) - Depth 0.1 0.2 -Total Square Cm 0.09 0.16 -Wound/Ulcer Outcome Not Healed Not Healed -Ulcer Cleansing Rinsed/ Rinsed/ Irrigated with Irrigated with Saline Saline -Foul Odor after Cleansing No No -Bioengineered Tissue No No -Bleeding Controlled with Pressure Pressure -Offloading Yes No -Type of Offloading Surgical Shoe -Treatment Response Procedure Procedure Tolerated Well Tolerated Well #2 L Foot Dorsal -Time 09:44 09:33 -Correct Patient Yes Yes -Correct Side, Site, Position Yes Yes -Correct Procedure Yes Yes -Procedure Performed Yes Yes -Type of Procedure Debridement Debridement -Clinical Debridement Subcutaneous Subcutaneous -Post Debridement Size (cm) - Length 1.7 1.5 -Post Debridement Size (cm) - Width 1.2 1.2 -Post Debridement Size (cm) - Depth 0.3 0.3 -Total Square Cm 2.04 1.80 -Wound/Ulcer Outcome Not Healed Not Healed -Ulcer Cleansing Rinsed/ Rinsed/ Irrigated with Irrigated with Saline Saline -Foul Odor after Cleansing No No -Bioengineered Tissue No No -Bleeding Controlled with Pressure Pressure -Offloading Yes No -Type of Offloading Surgical Shoe -Treatment Response Procedure Procedure Tolerated Well Tolerated Well Pain Scale: 0-10 Numeric Is Patient Pain Free? Yes Yes Wound debrided: Left dorsal foot Wound Grade/Stage: Stage III Type of Debridement: Excisional debridement Anesthesia Used: 4% Lidocaine Solution Depth: Down to and including healthy tissue, in the subcutaneous layer Percentage of wound debrided: 100 Instrument Used: 5mm curette Tissue Removed: Slough and devitalized tissue Severity: Fat Layer Exposed Amount of bleeding with debridement: Mild Bleeding Controlled with: Pressure Patient tolerated procedure well - Additional Wound Wound debrided: Right great toe Wound Grade/Stage: Stage II Type of Debridement: Excisional debridement Anesthesia Used: 4% Lidocaine Solution Depth: Down to and including healthy tissue, in the subcutaneous layer Percentage of wound debrided: 100 Instrument Used: 3mm curette Tissue Removed: Slough and devitalized tissue Severity: Fat Layer Exposed Amount of bleeding with debridement: Mild Bleeding Controlled with: Pressure Patient tolerated procedure: Patient tolerated procedure well Assessment/Plan Active Problems (Last Reviewed 07/16/18 @ 14:10 by Vicky Arzate NP-C) Chronic ulcer of right great toe with fat layer exposed (Chronic) Traumatic ulcer of left foot with fat layer exposed (Chronic) Peripheral arterial disease (Chronic) CAD (coronary artery disease) (Chronic) Diabetes mellitus type II, uncontrolled (Chronic) Assessment: Traumatic ulcer of the left dorsal foot and chronic right great toe ulcer in a patient with poorly controlled diabetes mellitus. Plan: Left dorsal foot improving, right great toe with no significant change. Again dried blood noted. Debridement of both ulcers done as documented above. Procedure was well-tolerated. Continue snap VAC to the left dorsal foot. Follow-up on Friday for a nurse visit for change. Continue Promogran with Adaptic over top to the right great toe. Change daily. SurePress for edema management. Offloading strongly recommended for right lower extremity. Advised to follow-up with her commercial credit analyst for proper fitting. Increased protein intake recommended. Optimal blood sugar control also strongly recommended. She was advised to follow-up with her PCP to adjust her insulin. All her questions were answered and she was advised to call with any further questions or concerns. Follow-up in 1 week. This note was generated with [employer] software. It may contain incorrect words, spelling, and punctuation that were not noted in checking the note before signing.
[2018-09-21 08:19] VITALS: BP 146/59; PULSE 58; RESP 18; TEMP 35.7; BMI 29.6
[2018-09-24 12:29] VITALS: BP 154/71; PULSE 56; RESP 16; TEMP 36.6; BMI 29.6
--- NOTE | 2018-09-24 12:52 | PCM.WC.PN ---
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 Status: Chronic Current Visit: Yes Code(s): L97.522 - Non-pressure chronic ulcer of other part of left foot with fat layer exposed (2) CAD (coronary artery disease) Status: Chronic Current Visit: Yes Code(s): I25.10 - Atherosclerotic heart disease of [place] coronary artery without angina pectoris (3) Chronic ulcer of right great toe with fat layer exposed Status: Chronic Current Visit: Yes Code(s): L97.512 - Non-pressure chronic ulcer of other part of right foot with fat layer exposed (4) Diabetes mellitus type II, uncontrolled Status: Chronic Current Visit: Yes Code(s): E11.65 - Type 2 diabetes mellitus with hyperglycemia (5) Peripheral arterial disease Status: Chronic Current Visit: Yes Code(s): I73.9 - Peripheral vascular disease, unspecified Type of Wound Chief Complaint: Traumatic ulceration of left foot and chronic right great toe ulcer. History of Wound: Ms. Rothman is a 78-year-old who was referred to the wound center by her button inspector for continued wound care. She has a chronic right great toe ulcer which she has been managing conservatively at home for about 6 months. However, she presented to a button inspector due to left foot ulcer. She had a bowel drop on her foot about 3 weeks ago. She subsequently developed discoloration and swelling for which she was seen in the emergency room. Imaging done at that time was without any significant abnormality. Plan was to conservatively manage. However about a week ago. She noted an opening over the area with associated drainage/discharge. She was seen by her button inspector and vacuum therapy was recommended. She reports a history of diabetes which is not well controlled. Last A1c per patient was around 9. She is currently on insulin. Progress of Wound: Stable ulcer/wound. Status post recent hospital stay for CHF exacerbation. - Physical Exam Vital Signs Temp Pulse Resp BP 97.8 F 56 L 16 154/71 H 09/24/18 12:29 09/24/18 12:29 09/24/18 12:29 09/24/18 12:29 General: Alert, Oriented x3, Cooperative, No apparent distress HEENT: Atraumatic, Normocephalic Oral: Moist Mucosa Neck: Supple Extremities: No cyanosis, Edema Skin: Ulcer/ Wound Wound Measurements and Assessment WC - Nurse 1 - General Ulcer Measurement Start: 08/31/18 11:29 Freq: Status: Active Protocol: Activity Type Activity Date Activity User E-Sign Co-Sign Detail Recorded Client Recorded Date Recorded By Document 09/24/18 12:29 [facility] [id number] 09/24/18 12:40 [facility] 09/24/18 12:29 Wound Center Nurse 1 [Ulcer Assessment] #3 R Grt Toe Plantar -Combined with other wound No -Current Size (cm) - Length 0.3 -Current Size (cm) - Width 0.3 -Current Size (cm) - Depth 0.3 -Total Square Cm 0.09 -Photo Taken No -Epithelialization None Present -Tunneling No -Undermining/Tunneling No -Circular Undermining No -Exudate Amt Small -Exudate Type Serosanguineous -Wound Margin Flat & Intact -Granulation Amt Medium (34-66%) -Granulation Quality [place] -Slough/Fibrin Yes -Necrosis Amt Small (1-33%) -Necrotic Tissue Type Adherent Slough -Texture (Amy-wound Skin Appearance) Callus Scarring -Moisture (Amy-wound Skin Appearance Dry/Scaly ) -Color (Amy-wound Skin Appearance) Assessed -Temperature (Amy-wound Skin No Abnormality Appearance) (Pt Warm) -Tenderness on Palpation (Amy-wound No Skin Appearance) -Ulcer Cleansing Rinsed/ Irrigated with Saline -Foul Odor after Cleansing No -Anesthetic Used 5% Lidocaine Gel #2 L Foot Dorsal -Combined with other wound No -Current Size (cm) - Length 1.3 -Current Size (cm) - Width 1.1 -Current Size (cm) - Depth 0.2 -Total Square Cm 1.43 -Photo Taken No -Epithelialization Small 1-33% -Tunneling No -Undermining/Tunneling No -Circular Undermining No -Exudate Amt Small -Exudate Type Serosanguineous -Wound Margin Distinct, Outline Attached -Granulation Amt Small (1-33%) -Granulation Quality [place] -Slough/Fibrin Yes -Necrosis Amt Medium (34-66%) -Necrotic Tissue Type Adherent Slough -Texture (Amy-wound Skin Appearance) Scarring -Moisture (Amy-wound Skin Appearance Dry/Scaly ) -Color (Amy-wound Skin Appearance) Erythema -Temperature (Amy-wound Skin No Abnormality Appearance) (Pt Warm) -Tenderness on Palpation (Amy-wound No Skin Appearance) -Ulcer Cleansing Rinsed/ Irrigated with Saline -Foul Odor after Cleansing No -Anesthetic Used 5% Lidocaine Gel [Edema Assessment] -Lower Limb Edema Present Yes -Left Calf (cm) 34.3 -Left Ankle (cm) 21.1 WC - Nurse 2 - General Ulcer CM Notes Start: 08/31/18 11:29 Freq: Status: Active Protocol: Activity Type Activity Date Activity User E-Sign Co-Sign Detail Recorded Client Recorded Date Recorded By Document 09/24/18 12:48 MW [id number] 09/24/18 12:50 MW 09/24/18 12:48 Wound Center Nurse 2 [Procedure/Treatment] #3 R Grt Toe Plantar -Time 12:48 -Correct Patient Yes -Correct Side, Site, Position Yes -Correct Procedure Yes -Procedure Performed Yes -Type of Procedure Debridement -Clinical Debridement Subcutaneous -Post Debridement Size (cm) - Length 0.4 -Post Debridement Size (cm) - Width 0.3 -Post Debridement Size (cm) - Depth 0.2 -Total Square Cm 0.12 -Wound/Ulcer Outcome Not Healed -Ulcer Cleansing Rinsed/ Irrigated with Saline -Foul Odor after Cleansing No -Bioengineered Tissue No -Bleeding Controlled with Pressure -Offloading No -Treatment Response Procedure Tolerated Well #2 L Foot Dorsal -Time 12:49 -Correct Patient Yes -Correct Side, Site, Position Yes -Correct Procedure Yes -Procedure Performed Yes -Type of Procedure Debridement -Clinical Debridement Subcutaneous -Post Debridement Size (cm) - Length 1.3 -Post Debridement Size (cm) - Width 1.0 -Post Debridement Size (cm) - Depth 0.2 -Total Square Cm 1.30 -Wound/Ulcer Outcome Not Healed -Ulcer Cleansing Rinsed/ Irrigated with Saline -Foul Odor after Cleansing No -Bioengineered Tissue No -Bleeding Controlled with Pressure -Offloading No -Treatment Response Procedure Tolerated Well [See Physician Procedure note for Specifics] Pain Scale: 0-10 Numeric [Pain] -Is Patient Pain Free? Yes Musculoskeletal: No Muscle Wasting Neurological: Cranial nerves II-XII grossly intact Psych/Mental Status: Normal Affect Debridement Note Post-Debridement Measurements/Treatment JAVED - Nurse 2 - General Ulcer CM Notes Start: 08/31/18 11:29 Freq: Status: Active Protocol: Activity Type Activity Date Activity User E-Sign Co-Sign Detail Recorded Client Recorded Date Recorded By Document 09/03/18 09:42 MW [id number] 09/03/18 09:52 MW Document 09/10/18 09:32 MW [id number] 09/10/18 09:41 MW Document 09/24/18 12:48 MW [id number] 09/24/18 12:50 MW 09/03/18 09/10/18 09/24/18 09:42 09:32 12:48 Wound Center Nurse 2 #3 R Grt Toe Plantar -Time 09:45 09:34 12:48 -Correct Patient Yes Yes Yes -Correct Side, Site, Position Yes Yes Yes -Correct Procedure Yes Yes Yes -Procedure Performed Yes Yes Yes -Type of Procedure Debridement Debridement Debridement -Clinical Debridement Subcutaneous Subcutaneous Subcutaneous -Post Debridement Size (cm) - Length 0.3 0.4 0.4 -Post Debridement Size (cm) - Width 0.3 0.4 0.3 -Post Debridement Size (cm) - Depth 0.1 0.2 0.2 -Total Square Cm 0.09 0.16 0.12 -Wound/Ulcer Outcome Not Healed Not Healed Not Healed -Ulcer Cleansing Rinsed/ Rinsed/ Rinsed/ Irrigated with Irrigated with Irrigated with Saline Saline Saline -Foul Odor after Cleansing No No No -Bioengineered Tissue No No No -Bleeding Controlled with Pressure Pressure Pressure -Offloading Yes No No -Type of Offloading Surgical Shoe -Treatment Response Procedure Procedure Procedure Tolerated Well Tolerated Well Tolerated Well #2 L Foot Dorsal -Time 09:44 09:33 12:49 -Correct Patient Yes Yes Yes -Correct Side, Site, Position Yes Yes Yes -Correct Procedure Yes Yes Yes -Procedure Performed Yes Yes Yes -Type of Procedure Debridement Debridement Debridement -Clinical Debridement Subcutaneous Subcutaneous Subcutaneous -Post Debridement Size (cm) - Length 1.7 1.5 1.3 -Post Debridement Size (cm) - Width 1.2 1.2 1.0 -Post Debridement Size (cm) - Depth 0.3 0.3 0.2 -Total Square Cm 2.04 1.80 1.30 -Wound/Ulcer Outcome Not Healed Not Healed Not Healed -Ulcer Cleansing Rinsed/ Rinsed/ Rinsed/ Irrigated with Irrigated with Irrigated with Saline Saline Saline -Foul Odor after Cleansing No No No -Bioengineered Tissue No No No -Bleeding Controlled with Pressure Pressure Pressure -Offloading Yes No No -Type of Offloading Surgical Shoe -Treatment Response Procedure Procedure Procedure Tolerated Well Tolerated Well Tolerated Well Pain Scale: 0-10 Numeric Is Patient Pain Free? Yes Yes Yes Wound debrided: Left foot (dorsum) Wound Grade/Stage: Stage III Type of Debridement: Excisional debridement Anesthesia Used: 4% Lidocaine Solution Depth: Down to and including healthy tissue, in the subcutaneous layer Percentage of wound debrided: 100 Instrument Used: 5mm curette Tissue Removed: Slough and devitalized tissue Severity: Fat Layer Exposed Amount of bleeding with debridement: Mild Bleeding Controlled with: Pressure Patient tolerated procedure well - Additional Wound Wound debrided: Right great toe Wound Grade/Stage: Stage II Type of Debridement: Excisional debridement Anesthesia Used: 4% Lidocaine Solution Depth: Down to and including healthy tissue, in the subcutaneous layer Percentage of wound debrided: 100 Instrument Used: 3mm curette Tissue Removed: Slough and devitalized tissue Severity: Fat Layer Exposed Amount of bleeding with debridement: Mild Bleeding Controlled with: Pressure Patient tolerated procedure: Patient tolerated procedure well Assessment/Plan Active Problems (Last Reviewed 09/15/18 @ 01:45 by Jordan Fischer MD) Chronic ulcer of right great toe with fat layer exposed (Chronic) Traumatic ulcer of left foot with fat layer exposed (Chronic) Peripheral arterial disease (Chronic) CAD (coronary artery disease) (Chronic) Diabetes mellitus type II, uncontrolled (Chronic) Assessment: Traumatic ulcer of the left dorsal foot and chronic right great toe ulcer in a patient with poorly controlled diabetes mellitus. Plan: Left dorsal foot improving, right great toe with no significant change. Debridement of both ulcers done as documented above. Procedure was well-tolerated. DC snapback. Continue Promogran with Adaptic over top to the both. Change daily to twice daily. Double layer Tubigrip for edema management. Offloading strongly recommended for right lower extremity. Advised to follow-up with her button inspector for proper fitting. Increased protein intake recommended. Optimal blood sugar control also strongly recommended. She was advised to follow-up with her PCP to adjust her insulin. All her questions were answered and she was advised to call with any further questions or concerns. Follow-up in 1 week. This note was generated with [email or web address] software. It may contain incorrect words, spelling, and punctuation that were not noted in checking the note before signing.
--- NOTE | 2018-09-24 12:55 | PN.PCM_ITS ---
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 Status: Chronic Current Visit: Yes Code(s): L97.522 - Non-pressure chronic ulcer of other part of left foot with fat layer exposed (2) CAD (coronary artery disease) Status: Chronic Current Visit: Yes Code(s): I25.10 - Atherosclerotic heart disease of [place] coronary artery without angina pectoris (3) Chronic ulcer of right great toe with fat layer exposed Status: Chronic Current Visit: Yes Code(s): L97.512 - Non-pressure chronic ulcer of other part of right foot with fat layer exposed (4) Diabetes mellitus type II, uncontrolled Status: Chronic Current Visit: Yes Code(s): E11.65 - Type 2 diabetes mellitus with hyperglycemia (5) Peripheral arterial disease Status: Chronic Current Visit: Yes Code(s): I73.9 - Peripheral vascular disease, unspecified Type of Wound Chief Complaint: Traumatic ulceration of left foot and chronic right great toe ulcer. History of Wound: Ms. Rothman is a 78-year-old who was referred to the wound center by her earth observations chief scientist for continued wound care. She has a chronic right great toe ulcer which she has been managing conservatively at home for about 6 months. However, she presented to a earth observations chief scientist due to left foot ulcer. She had a bowel drop on her foot about 3 weeks ago. She subsequently developed discoloration and swelling for which she was seen in the emergency room. Imaging done at that time was without any significant abnormality. Plan was to conservatively manage. However about a week ago. She noted an opening over the area with associated drainage/discharge. She was seen by her earth observations chief scientist and vacuum therapy was recommended. She reports a history of diabetes which is not well controlled. Last A1c per patient was around 9. She is currently on insulin. Progress of Wound: Stable ulcer/wound. Status post recent hospital stay for CHF exacerbation. - Physical Exam Vital Signs Temp Pulse Resp BP 97.8 F 56 L 16 154/71 H 09/24/18 12:29 09/24/18 12:29 09/24/18 12:29 09/24/18 12:29 General: Alert, Oriented x3, Cooperative, No apparent distress HEENT: Atraumatic, Normocephalic Oral: Moist Mucosa Neck: Supple Extremities: No cyanosis, Edema Skin: Ulcer/ Wound Wound Measurements and Assessment WC - Nurse 1 - General Ulcer Measurement Start: 08/31/18 11:29 Freq: Status: Active Protocol: Activity Type Activity Date Activity User E-Sign Co-Sign Detail Recorded Client Recorded Date Recorded By Document 09/24/18 12:29 [facility] [id number] 09/24/18 12:40 [facility] 09/24/18 12:29 Wound Center Nurse 1 [Ulcer Assessment] #3 R Grt Toe Plantar -Combined with other wound No -Current Size (cm) - Length 0.3 -Current Size (cm) - Width 0.3 -Current Size (cm) - Depth 0.3 -Total Square Cm 0.09 -Photo Taken No -Epithelialization None Present -Tunneling No -Undermining/Tunneling No -Circular Undermining No -Exudate Amt Small -Exudate Type Serosanguineous -Wound Margin Flat & Intact -Granulation Amt Medium (34-66%) -Granulation Quality [place] -Slough/Fibrin Yes -Necrosis Amt Small (1-33%) -Necrotic Tissue Type Adherent Slough -Texture (Amy-wound Skin Appearance) Callus Scarring -Moisture (Amy-wound Skin Appearance Dry/Scaly ) -Color (Amy-wound Skin Appearance) Assessed -Temperature (Amy-wound Skin No Abnormality Appearance) (Pt Warm) -Tenderness on Palpation (Amy-wound No Skin Appearance) -Ulcer Cleansing Rinsed/ Irrigated with Saline -Foul Odor after Cleansing No -Anesthetic Used 5% Lidocaine Gel #2 L Foot Dorsal -Combined with other wound No -Current Size (cm) - Length 1.3 -Current Size (cm) - Width 1.1 -Current Size (cm) - Depth 0.2 -Total Square Cm 1.43 -Photo Taken No -Epithelialization Small 1-33% -Tunneling No -Undermining/Tunneling No -Circular Undermining No -Exudate Amt Small -Exudate Type Serosanguineous -Wound Margin Distinct, Outline Attached -Granulation Amt Small (1-33%) -Granulation Quality [place] -Slough/Fibrin Yes -Necrosis Amt Medium (34-66%) -Necrotic Tissue Type Adherent Slough -Texture (Amy-wound Skin Appearance) Scarring -Moisture (Amy-wound Skin Appearance Dry/Scaly ) -Color (Amy-wound Skin Appearance) Erythema -Temperature (Amy-wound Skin No Abnormality Appearance) (Pt Warm) -Tenderness on Palpation (Amy-wound No Skin Appearance) -Ulcer Cleansing Rinsed/ Irrigated with Saline -Foul Odor after Cleansing No -Anesthetic Used 5% Lidocaine Gel [Edema Assessment] -Lower Limb Edema Present Yes -Left Calf (cm) 34.3 -Left Ankle (cm) 21.1 WC - Nurse 2 - General Ulcer CM Notes Start: 08/31/18 11:29 Freq: Status: Active Protocol: Activity Type Activity Date Activity User E-Sign Co-Sign Detail Recorded Client Recorded Date Recorded By Document 09/24/18 12:48 MW [id number] 09/24/18 12:50 MW 09/24/18 12:48 Wound Center Nurse 2 [Procedure/Treatment] #3 R Grt Toe Plantar -Time 12:48 -Correct Patient Yes -Correct Side, Site, Position Yes -Correct Procedure Yes -Procedure Performed Yes -Type of Procedure Debridement -Clinical Debridement Subcutaneous -Post Debridement Size (cm) - Length 0.4 -Post Debridement Size (cm) - Width 0.3 -Post Debridement Size (cm) - Depth 0.2 -Total Square Cm 0.12 -Wound/Ulcer Outcome Not Healed -Ulcer Cleansing Rinsed/ Irrigated with Saline -Foul Odor after Cleansing No -Bioengineered Tissue No -Bleeding Controlled with Pressure -Offloading No -Treatment Response Procedure Tolerated Well #2 L Foot Dorsal -Time 12:49 -Correct Patient Yes -Correct Side, Site, Position Yes -Correct Procedure Yes -Procedure Performed Yes -Type of Procedure Debridement -Clinical Debridement Subcutaneous -Post Debridement Size (cm) - Length 1.3 -Post Debridement Size (cm) - Width 1.0 -Post Debridement Size (cm) - Depth 0.2 -Total Square Cm 1.30 -Wound/Ulcer Outcome Not Healed -Ulcer Cleansing Rinsed/ Irrigated with Saline -Foul Odor after Cleansing No -Bioengineered Tissue No -Bleeding Controlled with Pressure -Offloading No -Treatment Response Procedure Tolerated Well [See Physician Procedure note for Specifics] Pain Scale: 0-10 Numeric [Pain] -Is Patient Pain Free? Yes Musculoskeletal: No Muscle Wasting Neurological: Cranial nerves II-XII grossly intact Psych/Mental Status: Normal Affect Debridement Note Post-Debridement Measurements/Treatment [email or web address] - Nurse 2 - General Ulcer CM Notes Start: 08/31/18 11:29 Freq: Status: Active Protocol: Activity Type Activity Date Activity User E-Sign Co-Sign Detail Recorded Client Recorded Date Recorded By Document 09/03/18 09:42 MW [id number] 09/03/18 09:52 MW Document 09/10/18 09:32 MW [id number] 09/10/18 09:41 MW Document 09/24/18 12:48 MW [id number] 09/24/18 12:50 MW 09/03/18 09/10/18 09/24/18 09:42 09:32 12:48 Wound Center Nurse 2 #3 R Grt Toe Plantar -Time 09:45 09:34 12:48 -Correct Patient Yes Yes Yes -Correct Side, Site, Position Yes Yes Yes -Correct Procedure Yes Yes Yes -Procedure Performed Yes Yes Yes -Type of Procedure Debridement Debridement Debridement -Clinical Debridement Subcutaneous Subcutaneous Subcutaneous -Post Debridement Size (cm) - Length 0.3 0.4 0.4 -Post Debridement Size (cm) - Width 0.3 0.4 0.3 -Post Debridement Size (cm) - Depth 0.1 0.2 0.2 -Total Square Cm 0.09 0.16 0.12 -Wound/Ulcer Outcome Not Healed Not Healed Not Healed -Ulcer Cleansing Rinsed/ Rinsed/ Rinsed/ Irrigated with Irrigated with Irrigated with Saline Saline Saline -Foul Odor after Cleansing No No No -Bioengineered Tissue No No No -Bleeding Controlled with Pressure Pressure Pressure -Offloading Yes No No -Type of Offloading Surgical Shoe -Treatment Response Procedure Procedure Procedure Tolerated Well Tolerated Well Tolerated Well #2 L Foot Dorsal -Time 09:44 09:33 12:49 -Correct Patient Yes Yes Yes -Correct Side, Site, Position Yes Yes Yes -Correct Procedure Yes Yes Yes -Procedure Performed Yes Yes Yes -Type of Procedure Debridement Debridement Debridement -Clinical Debridement Subcutaneous Subcutaneous Subcutaneous -Post Debridement Size (cm) - Length 1.7 1.5 1.3 -Post Debridement Size (cm) - Width 1.2 1.2 1.0 -Post Debridement Size (cm) - Depth 0.3 0.3 0.2 -Total Square Cm 2.04 1.80 1.30 -Wound/Ulcer Outcome Not Healed Not Healed Not Healed -Ulcer Cleansing Rinsed/ Rinsed/ Rinsed/ Irrigated with Irrigated with Irrigated with Saline Saline Saline -Foul Odor after Cleansing No No No -Bioengineered Tissue No No No -Bleeding Controlled with Pressure Pressure Pressure -Offloading Yes No No -Type of Offloading Surgical Shoe -Treatment Response Procedure Procedure Procedure Tolerated Well Tolerated Well Tolerated Well Pain Scale: 0-10 Numeric Is Patient Pain Free? Yes Yes Yes Wound debrided: Left foot (dorsum) Wound Grade/Stage: Stage III Type of Debridement: Excisional debridement Anesthesia Used: 4% Lidocaine Solution Depth: Down to and including healthy tissue, in the subcutaneous layer Percentage of wound debrided: 100 Instrument Used: 5mm curette Tissue Removed: Slough and devitalized tissue Severity: Fat Layer Exposed Amount of bleeding with debridement: Mild Bleeding Controlled with: Pressure Patient tolerated procedure well - Additional Wound Wound debrided: Right great toe Wound Grade/Stage: Stage II Type of Debridement: Excisional debridement Anesthesia Used: 4% Lidocaine Solution Depth: Down to and including healthy tissue, in the subcutaneous layer Percentage of wound debrided: 100 Instrument Used: 3mm curette Tissue Removed: Slough and devitalized tissue Severity: Fat Layer Exposed Amount of bleeding with debridement: Mild Bleeding Controlled with: Pressure Patient tolerated procedure: Patient tolerated procedure well Assessment/Plan Active Problems (Last Reviewed 09/15/18 @ 01:45 by Jordan iFscher MD) Chronic ulcer of right great toe with fat layer exposed (Chronic) Traumatic ulcer of left foot with fat layer exposed (Chronic) Peripheral arterial disease (Chronic) CAD (coronary artery disease) (Chronic) Diabetes mellitus type II, uncontrolled (Chronic) Assessment: Traumatic ulcer of the left dorsal foot and chronic right great toe ulcer in a patient with poorly controlled diabetes mellitus. Plan: Left dorsal foot improving, right great toe with no significant change. Debridement of both ulcers done as documented above. Procedure was well- tolerated. DC snapback. Continue Promogran with Adaptic over top to the both. Change daily to twice daily. Double layer Tubigrip for edema management. Offloading strongly recommended for right lower extremity. Advised to follow-up with her earth observations chief scientist for proper fitting. Increased protein intake recommended. Optimal blood sugar control also strongly recommended. She was advised to follow-up with her PCP to adjust her insulin. All her questions were answered and she was advised to call with any further questions or concerns. Follow-up in 1 week. This note was generated with [employer] software. It may contain incorrect words, spelling, and punctuation that were not noted in checking the note before signing.
== END 2018-09-24 23:59 ==
LOC: WC 11:30
PROVIDERS: Family Provider Internal Medicine; PCP Internal Medicine; Visit Provider Internal Medicine
DX: E11.621 Type 2 diabetes mellitus with foot ulcer (principal); E11.65 Type 2 diabetes mellitus with hyperglycemia; I25.10 Atherosclerotic heart disease of native coronary artery without angina pectoris; L97.512 Non-pressure chronic ulcer of other part of right foot with fat layer exposed; E11.51 Type 2 diabetes mellitus with diabetic peripheral angiopathy without gangrene; L97.522 Non-pressure chronic ulcer of other part of left foot with fat layer exposed
CPT/HCPCS: 11042; 97607; 99213; G0463

== ENCOUNTER 2018-09-28 11:39 | Outpatient (RCR) | payer MEDICARE, SELFPAY ==
[2018-09-28 12:10] LABS: Prothrombin Time Fingerstick 20.2 SEC (11.9-14.4)
== END 2018-09-28 12:39 | disposition home or self-care (01) ==
LOC: LAB 11:39
PROVIDERS: Family Provider Internal Medicine; PCP Internal Medicine; Referring Provider Internal Medicine Cardiovascular Disease; Visit Provider Internal Medicine Cardiovascular Disease
DX: Z79.01 Long term (current) use of anticoagulants (principal)
CPT/HCPCS: 36416; 85610

== ENCOUNTER → 2018-10-06 08:03 | Outpatient (CLI) | payer MEDICARE, SELFPAY ==
[2018-09-29 08:21] VITALS: BMI 29.8
[2018-10-01 08:53] VITALS: BMI 29.6
--- NOTE | 2018-10-07 09:43 | PFT ---
INTRODUCTION: The patient is a 78-year-old female that presents for pulmonary function studies secondary to a diagnosis of COPD. Respiratory therapy reports good patient effort. Bronchodilators were used during testing. INTERPRETATION: Forced expiration spirometry demonstrates the presence of a moderate large airways obstructive ventilatory impairment. There was a significant response to aerosolized bronchodilators, based upon change noted in FEV1. Spirograms are of good quality and do not plateau indicating slow emptying of the lungs. Body plethysmography was performed and reveals a decreased TLC to 3.3 L, 73% of predicted, indicative of a mild restrictive ventilatory impairment. The remainder of the lung volumes are symmetrically reduced. Diffusing capacity by single breath CO is moderately reduced at 57% of predicted. When compared to previous pulmonary function studies dated March 2016, there has been a 14% reduction in FEV1 and 10% reduction in TLC. IMPRESSION: These pulmonary function studies demonstrate the presence of a reversible moderate mixed ventilatory defect with a symmetric reduction in diffusing capacity. There appears to have been worsening in the patient's pulmonary function study since March 2016, as noted above.
== END ==
PROVIDERS: Family Provider Internal Medicine; PCP Internal Medicine; Referring Provider Nurse Practitioner Acute Care; Visit Provider Nurse Practitioner Acute Care
DX: J44.1 Chronic obstructive pulmonary disease with (acute) exacerbation (principal)
CPT/HCPCS: 94060; 94726; 94729

== ENCOUNTER → 2018-10-12 09:19 | Outpatient (CLI) | payer MEDICARE, SELFPAY ==
[2018-10-08 09:30] VITALS: BMI 29.6
[2018-10-12 11:45] LABS: Prothrombin Time Fingerstick 20.9 SEC (11.9-14.4)
== END ==
PROVIDERS: Family Provider Internal Medicine; PCP Internal Medicine; Visit Provider Internal Medicine Cardiovascular Disease
DX: I48.0 Paroxysmal atrial fibrillation (principal); Z51.81 Encounter for therapeutic drug level monitoring; Z79.01 Long term (current) use of anticoagulants
CPT/HCPCS: 36416; 85610

== ENCOUNTER 2018-10-22 10:00 | Outpatient (RCR) | payer MEDICARE, SELFPAY ==
[2018-09-25 01:27] VITALS: BP 154/71; PULSE 56; RESP 16; TEMP 36.6
[2018-10-01 08:53] VITALS: BP 152/68; PULSE 56; RESP 18; TEMP 35.7; BMI 29.6
--- NOTE | 2018-10-01 10:42 | PCM.WC.PN ---
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 Status: Chronic Current Visit: Yes Code(s): L97.512 - Non-pressure chronic ulcer of other part of right foot with fat layer exposed (2) Peripheral arterial disease Status: Chronic Current Visit: Yes Code(s): I73.9 - Peripheral vascular disease, unspecified (3) Traumatic ulcer of left foot with fat layer exposed Status: Chronic Current Visit: Yes Code(s): L97.522 - Non-pressure chronic ulcer of other part of left foot with fat layer exposed Type of Wound Chief Complaint: Traumatic ulceration of left foot and chronic right great toe ulcer. History of Wound: Ms. Rothman is a 78-year-old who was referred to the wound center by her order takers supervisor for continued wound care. She has a chronic right great toe ulcer which she has been managing conservatively at home for about 6 months. However, she presented to a order takers supervisor due to left foot ulcer. She had a bowel drop on her foot about 3 weeks ago. She subsequently developed discoloration and swelling for which she was seen in the emergency room. Imaging done at that time was without any significant abnormality. Plan was to conservatively manage. However about a week ago. She noted an opening over the area with associated drainage/discharge. She was seen by her order takers supervisor and vacuum therapy was recommended. She reports a history of diabetes which is not well controlled. Last A1c per patient was around 9. She is currently on insulin. Progress of Wound: Stable. No concerns at this time. - Physical Exam Vital Signs Temp Pulse Resp BP 96.2 F L 56 L 18 152/68 H 10/01/18 08:53 10/01/18 08:53 10/01/18 08:53 10/01/18 08:53 General: Alert, Oriented x3, Cooperative, No apparent distress HEENT: Atraumatic, Normocephalic Oral: Moist Mucosa Neck: Supple Lungs: Normal air movement Extremities: No cyanosis Skin: Ulcer/ Wound Wound Measurements and Assessment WC - Nurse 1 - General Ulcer Measurement Start: 10/01/18 08:53 Freq: Status: Active Protocol: Activity Type Activity Date Activity User E-Sign Co-Sign Detail Recorded Client Recorded Date Recorded By Document 10/01/18 08:53 AN [id number] 10/01/18 08:58 AN 03/07/19 08:53 Wound Center Nurse 1 [Ulcer Assessment] #3 R Grt Toe Plantar -Current Size (cm) - Length 0.3 -Current Size (cm) - Width 0.4 -Current Size (cm) - Depth 0.1 -Total Square Cm 0.12 -Exudate Amt Medium -Exudate Type Serosanguineous -Wound Margin Thickened -Texture (Amy-wound Skin Appearance) Callus -Anesthetic Used 5% Lidocaine Gel #2 L Foot Dorsal -Current Size (cm) - Length 1.4 -Current Size (cm) - Width 1 -Current Size (cm) - Depth 0.2 -Total Square Cm 1.4 -Classification - Thickness Full Thickness without Exposed Support Structure -Exudate Amt Medium -Exudate Type Serosanguineous -Wound Margin Distinct, Outline Attached -Granulation Amt Small (1-33%) -Granulation Quality Red -Necrosis Amt Large (67-100%) -Necrotic Tissue Type Adherent Slough -Texture (Amy-wound Skin Appearance) Assessed -Moisture (Amy-wound Skin Appearance Assessed ) -Color (Amy-wound Skin Appearance) Assessed -Temperature (Amy-wound Skin No Abnormality Appearance) (Pt Warm) -Ulcer Cleansing Rinsed/ Irrigated with Saline -Foul Odor after Cleansing No -Anesthetic Used 5% Lidocaine Gel [Edema Assessment] -Right Calf (cm) 33.7 -Right Ankle (cm) 20.2 -Left Calf (cm) 34 -Left Ankle (cm) 21 WC - Nurse 2 - General Ulcer CM Notes Start: 10/01/18 08:53 Freq: Status: Active Protocol: Activity Type Activity Date Activity User E-Sign Co-Sign Detail Recorded Client Recorded Date Recorded By Document 10/01/18 09:11 MW [id number] 10/01/18 09:16 MW 10/01/18 09:11 Wound Center Nurse 2 [Procedure/Treatment] #3 R Grt Toe Plantar -Time 09:13 -Correct Patient Yes -Correct Side, Site, Position Yes -Correct Procedure Yes -Procedure Performed Yes -Type of Procedure Debridement -Clinical Debridement Subcutaneous -Post Debridement Size (cm) - Length 0.3 -Post Debridement Size (cm) - Width 0.3 -Post Debridement Size (cm) - Depth 0.1 -Total Square Cm 0.09 -Wound/Ulcer Outcome Not Healed -Ulcer Cleansing Rinsed/ Irrigated with Saline -Foul Odor after Cleansing No -Bioengineered Tissue No -Bleeding Controlled with Pressure -Offloading No -Treatment Response Procedure Tolerated Well #2 L Foot Dorsal -Time 09:11 -Correct Patient Yes -Correct Side, Site, Position Yes -Correct Procedure Yes -Procedure Performed Yes -Type of Procedure Debridement -Clinical Debridement Subcutaneous -Post Debridement Size (cm) - Length 1.2 -Post Debridement Size (cm) - Width 0.5 -Post Debridement Size (cm) - Depth 0.2 -Total Square Cm 0.60 -Wound/Ulcer Outcome Not Healed -Ulcer Cleansing Rinsed/ Irrigated with Saline -Foul Odor after Cleansing No -Bioengineered Tissue No -Bleeding Controlled with Pressure -Offloading No -Treatment Response Procedure Tolerated Well [See Physician Procedure note for Specifics] Pain Scale: 0-10 Numeric [Pain] -Is Patient Pain Free? No Musculoskeletal: No Muscle Wasting Neurological: Cranial nerves II-XII grossly intact Psych/Mental Status: Normal Affect Debridement Note Post-Debridement Measurements/Treatment WC - Nurse 2 - General Ulcer CM Notes Start: 10/01/18 08:53 Freq: Status: Active Protocol: Activity Type Activity Date Activity User E-Sign Co-Sign Detail Recorded Client Recorded Date Recorded By Document 10/01/18 09:11 MW [id number] 10/01/18 09:16 MW 10/01/18 09:11 Wound Center Nurse 2 #3 R Grt Toe Plantar -Time 09:13 -Correct Patient Yes -Correct Side, Site, Position Yes -Correct Procedure Yes -Procedure Performed Yes -Type of Procedure Debridement -Clinical Debridement Subcutaneous -Post Debridement Size (cm) - Length 0.3 -Post Debridement Size (cm) - Width 0.3 -Post Debridement Size (cm) - Depth 0.1 -Total Square Cm 0.09 -Wound/Ulcer Outcome Not Healed -Ulcer Cleansing Rinsed/ Irrigated with Saline -Foul Odor after Cleansing No -Bioengineered Tissue No -Bleeding Controlled with Pressure -Offloading No -Treatment Response Procedure Tolerated Well #2 L Foot Dorsal -Time 09:11 -Correct Patient Yes -Correct Side, Site, Position Yes -Correct Procedure Yes -Procedure Performed Yes -Type of Procedure Debridement -Clinical Debridement Subcutaneous -Post Debridement Size (cm) - Length 1.2 -Post Debridement Size (cm) - Width 0.5 -Post Debridement Size (cm) - Depth 0.2 -Total Square Cm 0.60 -Wound/Ulcer Outcome Not Healed -Ulcer Cleansing Rinsed/ Irrigated with Saline -Foul Odor after Cleansing No -Bioengineered Tissue No -Bleeding Controlled with Pressure -Offloading No -Treatment Response Procedure Tolerated Well Pain Scale: 0-10 Numeric Is Patient Pain Free? No Wound debrided: Left Foot Wound Grade/Stage: Stage III Type of Debridement: Excisional debridement Anesthesia Used: 4% Lidocaine Solution Depth: Down to and including healthy tissue, in the subcutaneous layer Percentage of wound debrided: 100 Instrument Used: 5mm curette Tissue Removed: Slough and devitalized tissue Severity: Fat Layer Exposed Amount of bleeding with debridement: Mild Bleeding Controlled with: Pressure Patient tolerated procedure well - Additional Wound Wound debrided: Right great toe Wound Grade/Stage: Stage II Type of Debridement: Excisional debridement Anesthesia Used: 4% Lidocaine Solution Depth: Down to and including healthy tissue, in the subcutaneous layer Percentage of wound debrided: 100 Instrument Used: 5mm curette Tissue Removed: Slough and devitalized tissue Severity: Fat Layer Exposed Amount of bleeding with debridement: Mild Bleeding Controlled with: Pressure Patient tolerated procedure: Patient tolerated procedure well Assessment/Plan Active Problems (Last Reviewed 09/29/18 @ 08:24 by Nya Tong) Chronic ulcer of right great toe with fat layer exposed (Chronic) Traumatic ulcer of left foot with fat layer exposed (Chronic) Peripheral arterial disease (Chronic) Assessment: Traumatic ulcer of the left dorsal foot and chronic right great toe ulcer in a patient with poorly controlled diabetes mellitus. Plan: Both improving. No new concerns at this time. Debridement of both ulcers done as documented above. Procedure was well-tolerated. Continue Promogran with Adaptic over top to the both. Change daily to twice daily. Double layer Tubigrip for edema management. Offloading strongly recommended for right lower extremity. Advised to follow-up with her order takers supervisor for proper fitting. Increased protein intake recommended. Optimal blood sugar control also strongly recommended. She was advised to follow-up with her PCP to adjust her insulin. All her questions were answered and she was advised to call with any further questions or concerns. Follow-up in 1 week. This note was generated with [employer] software. It may contain incorrect words, spelling, and punctuation that were not noted in checking the note before signing.
--- NOTE | 2018-10-01 10:46 | PN.PCM_ITS ---
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 Status: Chronic Current Visit: Yes Code(s): L97.512 - Non-pressure chronic ulcer of other part of right foot with fat layer exposed (2) Peripheral arterial disease Status: Chronic Current Visit: Yes Code(s): I73.9 - Peripheral vascular disease, unspecified (3) Traumatic ulcer of left foot with fat layer exposed Status: Chronic Current Visit: Yes Code(s): L97.522 - Non-pressure chronic ulcer of other part of left foot with fat layer exposed Type of Wound Chief Complaint: Traumatic ulceration of left foot and chronic right great toe ulcer. History of Wound: Ms. Rothman is a 78-year-old who was referred to the wound center by her tracing lathe set up operator for continued wound care. She has a chronic right great toe ulcer which she has been managing conservatively at home for about 6 months. However, she presented to a tracing lathe set up operator due to left foot ulcer. She had a bowel drop on her foot about 3 weeks ago. She subsequently developed discoloration and swelling for which she was seen in the emergency room. Imaging done at that time was without any significant abnormality. Plan was to conservatively manage. However about a week ago. She noted an opening over the area with associated drainage/discharge. She was seen by her tracing lathe set up operator and vacuum therapy was recommended. She reports a history of diabetes which is not well controlled. Last A1c per patient was around 9. She is currently on insulin. Progress of Wound: Stable. No concerns at this time. - Physical Exam Vital Signs Temp Pulse Resp BP 96.2 F L 56 L 18 152/68 H 10/01/18 08:53 10/01/18 08:53 10/01/18 08:53 10/01/18 08:53 General: Alert, Oriented x3, Cooperative, No apparent distress HEENT: Atraumatic, Normocephalic Oral: Moist Mucosa Neck: Supple Lungs: Normal air movement Extremities: No cyanosis Skin: Ulcer/ Wound Wound Measurements and Assessment WC - Nurse 1 - General Ulcer Measurement Start: 10/01/18 08:53 Freq: Status: Active Protocol: Activity Type Activity Date Activity User E-Sign Co-Sign Detail Recorded Client Recorded Date Recorded By Document 10/01/18 08:53 AN [id number] 10/01/18 08:58 AN 03/07/19 08:53 Wound Center Nurse 1 [Ulcer Assessment] #3 R Grt Toe Plantar -Current Size (cm) - Length 0.3 -Current Size (cm) - Width 0.4 -Current Size (cm) - Depth 0.1 -Total Square Cm 0.12 -Exudate Amt Medium -Exudate Type Serosanguineous -Wound Margin Thickened -Texture (Amy-wound Skin Appearance) Callus -Anesthetic Used 5% Lidocaine Gel #2 L Foot Dorsal -Current Size (cm) - Length 1.4 -Current Size (cm) - Width 1 -Current Size (cm) - Depth 0.2 -Total Square Cm 1.4 -Classification - Thickness Full Thickness without Exposed Support Structure -Exudate Amt Medium -Exudate Type Serosanguineous -Wound Margin Distinct, Outline Attached -Granulation Amt Small (1-33%) -Granulation Quality Red -Necrosis Amt Large (67-100%) -Necrotic Tissue Type Adherent Slough -Texture (Amy-wound Skin Appearance) Assessed -Moisture (Amy-wound Skin Appearance Assessed ) -Color (Amy-wound Skin Appearance) Assessed -Temperature (Amy-wound Skin No Abnormality Appearance) (Pt Warm) -Ulcer Cleansing Rinsed/ Irrigated with Saline -Foul Odor after Cleansing No -Anesthetic Used 5% Lidocaine Gel [Edema Assessment] -Right Calf (cm) 33.7 -Right Ankle (cm) 20.2 -Left Calf (cm) 34 -Left Ankle (cm) 21 WC - Nurse 2 - General Ulcer CM Notes Start: 10/01/18 08:53 Freq: Status: Active Protocol: Activity Type Activity Date Activity User E-Sign Co-Sign Detail Recorded Client Recorded Date Recorded By Document 10/01/18 09:11 MW [id number] 10/01/18 09:16 MW 10/01/18 09:11 Wound Center Nurse 2 [Procedure/Treatment] #3 R Grt Toe Plantar -Time 09:13 -Correct Patient Yes -Correct Side, Site, Position Yes -Correct Procedure Yes -Procedure Performed Yes -Type of Procedure Debridement -Clinical Debridement Subcutaneous -Post Debridement Size (cm) - Length 0.3 -Post Debridement Size (cm) - Width 0.3 -Post Debridement Size (cm) - Depth 0.1 -Total Square Cm 0.09 -Wound/Ulcer Outcome Not Healed -Ulcer Cleansing Rinsed/ Irrigated with Saline -Foul Odor after Cleansing No -Bioengineered Tissue No -Bleeding Controlled with Pressure -Offloading No -Treatment Response Procedure Tolerated Well #2 L Foot Dorsal -Time 09:11 -Correct Patient Yes -Correct Side, Site, Position Yes -Correct Procedure Yes -Procedure Performed Yes -Type of Procedure Debridement -Clinical Debridement Subcutaneous -Post Debridement Size (cm) - Length 1.2 -Post Debridement Size (cm) - Width 0.5 -Post Debridement Size (cm) - Depth 0.2 -Total Square Cm 0.60 -Wound/Ulcer Outcome Not Healed -Ulcer Cleansing Rinsed/ Irrigated with Saline -Foul Odor after Cleansing No -Bioengineered Tissue No -Bleeding Controlled with Pressure -Offloading No -Treatment Response Procedure Tolerated Well [See Physician Procedure note for Specifics] Pain Scale: 0-10 Numeric [Pain] -Is Patient Pain Free? No Musculoskeletal: No Muscle Wasting Neurological: Cranial nerves II-XII grossly intact Psych/Mental Status: Normal Affect Debridement Note Post-Debridement Measurements/Treatment WC - Nurse 2 - General Ulcer CM Notes Start: 10/01/18 08:53 Freq: Status: Active Protocol: Activity Type Activity Date Activity User E-Sign Co-Sign Detail Recorded Client Recorded Date Recorded By Document 10/01/18 09:11 MW [id number] 10/01/18 09:16 MW 10/01/18 09:11 Wound Center Nurse 2 #3 R Grt Toe Plantar -Time 09:13 -Correct Patient Yes -Correct Side, Site, Position Yes -Correct Procedure Yes -Procedure Performed Yes -Type of Procedure Debridement -Clinical Debridement Subcutaneous -Post Debridement Size (cm) - Length 0.3 -Post Debridement Size (cm) - Width 0.3 -Post Debridement Size (cm) - Depth 0.1 -Total Square Cm 0.09 -Wound/Ulcer Outcome Not Healed -Ulcer Cleansing Rinsed/ Irrigated with Saline -Foul Odor after Cleansing No -Bioengineered Tissue No -Bleeding Controlled with Pressure -Offloading No -Treatment Response Procedure Tolerated Well #2 L Foot Dorsal -Time 09:11 -Correct Patient Yes -Correct Side, Site, Position Yes -Correct Procedure Yes -Procedure Performed Yes -Type of Procedure Debridement -Clinical Debridement Subcutaneous -Post Debridement Size (cm) - Length 1.2 -Post Debridement Size (cm) - Width 0.5 -Post Debridement Size (cm) - Depth 0.2 -Total Square Cm 0.60 -Wound/Ulcer Outcome Not Healed -Ulcer Cleansing Rinsed/ Irrigated with Saline -Foul Odor after Cleansing No -Bioengineered Tissue No -Bleeding Controlled with Pressure -Offloading No -Treatment Response Procedure Tolerated Well Pain Scale: 0-10 Numeric Is Patient Pain Free? No Wound debrided: Left Foot Wound Grade/Stage: Stage III Type of Debridement: Excisional debridement Anesthesia Used: 4% Lidocaine Solution Depth: Down to and including healthy tissue, in the subcutaneous layer Percentage of wound debrided: 100 Instrument Used: 5mm curette Tissue Removed: Slough and devitalized tissue Severity: Fat Layer Exposed Amount of bleeding with debridement: Mild Bleeding Controlled with: Pressure Patient tolerated procedure well - Additional Wound Wound debrided: Right great toe Wound Grade/Stage: Stage II Type of Debridement: Excisional debridement Anesthesia Used: 4% Lidocaine Solution Depth: Down to and including healthy tissue, in the subcutaneous layer Percentage of wound debrided: 100 Instrument Used: 5mm curette Tissue Removed: Slough and devitalized tissue Severity: Fat Layer Exposed Amount of bleeding with debridement: Mild Bleeding Controlled with: Pressure Patient tolerated procedure: Patient tolerated procedure well Assessment/Plan Active Problems (Last Reviewed 09/29/18 @ 08:24 by Nya Tong) Chronic ulcer of right great toe with fat layer exposed (Chronic) Traumatic ulcer of left foot with fat layer exposed (Chronic) Peripheral arterial disease (Chronic) Assessment: Traumatic ulcer of the left dorsal foot and chronic right great toe ulcer in a patient with poorly controlled diabetes mellitus. Plan: Both improving. No new concerns at this time. Debridement of both ulcers done as documented above. Procedure was well-tolerated. Continue Promogran with Adaptic over top to the both. Change daily to twice daily. Double layer Tubigrip for edema management. Offloading strongly recommended for right lower extremity. Advised to follow-up with her tracing lathe set up operator for proper fitting. Increased protein intake recommended. Optimal blood sugar control also strongly recommended. She was advised to follow-up with her PCP to adjust her insulin. All her questions were answered and she was advised to call with any further questions or concerns. Follow-up in 1 week. This note was generated with [employer] software. It may contain incorrect words, spelling, and punctuation that were not noted in checking the note before signing.
[2018-10-08 09:30] VITALS: BP 136/63; PULSE 57; RESP 18; TEMP 36.3; BMI 29.6
--- NOTE | 2018-10-08 11:07 | PCM.WC.PN ---
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 Status: Chronic Current Visit: Yes Code(s): L97.512 - Non-pressure chronic ulcer of other part of right foot with fat layer exposed (2) Peripheral arterial disease Status: Chronic Current Visit: Yes Code(s): I73.9 - Peripheral vascular disease, unspecified (3) Traumatic ulcer of left foot with fat layer exposed Status: Chronic Current Visit: Yes Code(s): L97.522 - Non-pressure chronic ulcer of other part of left foot with fat layer exposed Type of Wound Chief Complaint: Traumatic ulceration of left foot and chronic right great toe ulcer. History of Wound: Ms. Rothman is a 78-year-old who was referred to the wound center by her hearing dog trainer for continued wound care. She has a chronic right great toe ulcer which she has been managing conservatively at home for about 6 months. However, she presented to a hearing dog trainer due to left foot ulcer. She had a bowel drop on her foot about 3 weeks ago. She subsequently developed discoloration and swelling for which she was seen in the emergency room. Imaging done at that time was without any significant abnormality. Plan was to conservatively manage. However about a week ago. She noted an opening over the area with associated drainage/discharge. She was seen by her hearing dog trainer and vacuum therapy was recommended. She reports a history of diabetes which is not well controlled. Last A1c per patient was around 9. She is currently on insulin. Progress of Wound: She presents with a new left lateral foot ulcer. She has a bony defect at that area which rubs against her shoes. She denies significant pain or discharge. - Physical Exam Vital Signs Temp Pulse Resp BP 97.4 F L 57 L 18 136/63 H 10/08/18 09:30 10/08/18 09:30 10/08/18 09:30 10/08/18 09:30 General: Alert, Oriented x3, Cooperative, No apparent distress HEENT: Atraumatic, Normocephalic Oral: Moist Mucosa Neck: Supple Lungs: Normal air movement Extremities: No cyanosis Wound Measurements and Assessment WC - Nurse 1 - General Ulcer Measurement Start: 10/01/18 08:53 Freq: Status: Active Protocol: Activity Type Activity Date Activity User E-Sign Co-Sign Detail Recorded Client Recorded Date Recorded By Document 03/14/19 09:30 AN [id number] 10/08/18 09:42 AN 10/08/18 09:30 Wound Center Nurse 1 [Ulcer Assessment] #3 R Grt Toe Plantar -Current Size (cm) - Length 0.1 -Current Size (cm) - Width 0.1 -Current Size (cm) - Depth 0.1 -Total Square Cm 0.01 -Epithelialization None Present -Classification - Thickness Unclassifiable (Eschar Covered ) -Exudate Amt None Present -Necrosis Amt None Present (0 %) #2 L Foot Dorsal -Current Size (cm) - Length 1.4 -Current Size (cm) - Width 0.7 -Current Size (cm) - Depth 0.1 -Total Square Cm 0.98 -Epithelialization None Present -Tunneling No -Undermining/Tunneling No -Classification - Thickness Full Thickness without Exposed Support Structure -Exudate Amt Medium -Exudate Type Serosanguineous -Wound Margin Distinct, Outline Attached -Granulation Amt Medium (34-66%) -Granulation Quality Pale Siloam -Slough/Fibrin Yes -Necrosis Amt Medium (34-66%) -Necrotic Tissue Type Adherent Slough -Structure Exposed None/Limited to Skin Breakdown -Texture (Amy-wound Skin Appearance) Assessed -Moisture (Amy-wound Skin Appearance Assessed ) -Color (Amy-wound Skin Appearance) Assessed -Temperature (Amy-wound Skin No Abnormality Appearance) (Pt Warm) -Tenderness on Palpation (Amy-wound Yes Skin Appearance) -Ulcer Cleansing Rinsed/ Irrigated with Saline -Foul Odor after Cleansing No -Anesthetic Used 4% Lidocaine Solution WC - Nurse 2 - General Ulcer CM Notes Start: 10/01/18 08:53 Freq: Status: Active Protocol: Activity Type Activity Date Activity User E-Sign Co-Sign Detail Recorded Client Recorded Date Recorded By Document 10/08/18 10:04 MW [id number] 10/08/18 10:14 MW 10/08/18 10:04 Wound Center Nurse 2 [Procedure/Treatment] #4 left lateral foot -Time 10:06 -Correct Patient Yes -Correct Side, Site, Position Yes -Correct Procedure Yes -Procedure Performed Yes -Type of Procedure Debridement -Clinical Debridement Subcutaneous -Post Debridement Size (cm) - Length 0.7 -Post Debridement Size (cm) - Width 0.7 -Post Debridement Size (cm) - Depth 0.1 -Total Square Cm 0.49 -Wound/Ulcer Outcome Not Healed -Ulcer Cleansing Rinsed/ Irrigated with Saline -Foul Odor after Cleansing No -Bioengineered Tissue No -Bleeding Controlled with Pressure -Offloading No -Treatment Response Procedure Tolerated Well #3 R Grt Toe Plantar -Time 10:05 -Correct Patient Yes -Correct Side, Site, Position Yes -Correct Procedure Yes -Procedure Performed Yes -Type of Procedure Debridement -Clinical Debridement Subcutaneous -Post Debridement Size (cm) - Length 0.2 -Post Debridement Size (cm) - Width 0.1 -Post Debridement Size (cm) - Depth 0.1 -Total Square Cm 0.02 -Wound/Ulcer Outcome Not Healed -Ulcer Cleansing Rinsed/ Irrigated with Saline -Foul Odor after Cleansing No -Bioengineered Tissue No -Bleeding Controlled with Pressure -Offloading No -Treatment Response Procedure Tolerated Well #2 L Foot Dorsal -Time 10:05 -Correct Patient Yes -Correct Side, Site, Position Yes -Correct Procedure Yes -Procedure Performed Yes -Type of Procedure Debridement -Clinical Debridement Subcutaneous -Post Debridement Size (cm) - Length 0.9 -Post Debridement Size (cm) - Width 0.9 -Post Debridement Size (cm) - Depth 0.2 -Total Square Cm 0.81 -Wound/Ulcer Outcome Not Healed -Ulcer Cleansing Rinsed/ Irrigated with Saline -Foul Odor after Cleansing No -Bioengineered Tissue No -Bleeding Controlled with Pressure -Offloading No -Treatment Response Procedure Tolerated Well [See Physician Procedure note for Specifics] Pain Scale: 0-10 Numeric [Pain] -Is Patient Pain Free? Yes Neurological: Cranial nerves II-XII grossly intact Psych/Mental Status: Normal Affect Debridement Note Post-Debridement Measurements/Treatment WC - Nurse 2 - General Ulcer CM Notes Start: 10/01/18 08:53 Freq: Status: Active Protocol: Activity Type Activity Date Activity User E-Sign Co-Sign Detail Recorded Client Recorded Date Recorded By Document 10/01/18 09:11 MW [id number] 10/01/18 09:16 MW Document 10/08/18 10:04 MW [id number] 10/08/18 10:14 MW 10/01/18 10/08/18 09:11 10:04 Wound Center Nurse 2 #4 left lateral foot -Time 10:06 -Correct Patient Yes -Correct Side, Site, Position Yes -Correct Procedure Yes -Procedure Performed Yes -Type of Procedure Debridement -Clinical Debridement Subcutaneous -Post Debridement Size (cm) - Length 0.7 -Post Debridement Size (cm) - Width 0.7 -Post Debridement Size (cm) - Depth 0.1 -Total Square Cm 0.49 -Wound/Ulcer Outcome Not Healed -Ulcer Cleansing Rinsed/ Irrigated with Saline -Foul Odor after Cleansing No -Bioengineered Tissue No -Bleeding Controlled with Pressure -Offloading No -Treatment Response Procedure Tolerated Well #3 R Grt Toe Plantar -Time 09:13 10:05 -Correct Patient Yes Yes -Correct Side, Site, Position Yes Yes -Correct Procedure Yes Yes -Procedure Performed Yes Yes -Type of Procedure Debridement Debridement -Clinical Debridement Subcutaneous Subcutaneous -Post Debridement Size (cm) - Length 0.3 0.2 -Post Debridement Size (cm) - Width 0.3 0.1 -Post Debridement Size (cm) - Depth 0.1 0.1 -Total Square Cm 0.09 0.02 -Wound/Ulcer Outcome Not Healed Not Healed -Ulcer Cleansing Rinsed/ Rinsed/ Irrigated with Irrigated with Saline Saline -Foul Odor after Cleansing No No -Bioengineered Tissue No No -Bleeding Controlled with Pressure Pressure -Offloading No No -Treatment Response Procedure Procedure Tolerated Well Tolerated Well #2 L Foot Dorsal -Time 09:11 10:05 -Correct Patient Yes Yes -Correct Side, Site, Position Yes Yes -Correct Procedure Yes Yes -Procedure Performed Yes Yes -Type of Procedure Debridement Debridement -Clinical Debridement Subcutaneous Subcutaneous -Post Debridement Size (cm) - Length 1.2 0.9 -Post Debridement Size (cm) - Width 0.5 0.9 -Post Debridement Size (cm) - Depth 0.2 0.2 -Total Square Cm 0.60 0.81 -Wound/Ulcer Outcome Not Healed Not Healed -Ulcer Cleansing Rinsed/ Rinsed/ Irrigated with Irrigated with Saline Saline -Foul Odor after Cleansing No No -Bioengineered Tissue No No -Bleeding Controlled with Pressure Pressure -Offloading No No -Treatment Response Procedure Procedure Tolerated Well Tolerated Well Pain Scale: 0-10 Numeric Is Patient Pain Free? No Yes Wound debrided: Left dorsal foot Wound Grade/Stage: Stage III Type of Debridement: Excisional debridement Anesthesia Used: 4% Lidocaine Solution Depth: Down to and including healthy tissue, in the subcutaneous layer Percentage of wound debrided: 100 Instrument Used: 3mm curette Tissue Removed: Slough and devitalized tissue Severity: Fat Layer Exposed Amount of bleeding with debridement: Mild Bleeding Controlled with: Pressure Patient tolerated procedure well - Additional Wound Wound debrided: Left lateral foot Wound Grade/Stage: Stage II Type of Debridement: Excisional debridement Anesthesia Used: 4% Lidocaine Solution Depth: Down to and including healthy tissue, in the subcutaneous layer Percentage of wound debrided: 100 Instrument Used: 3mm curette Tissue Removed: Slough and devitalized tissue Severity: Fat Layer Exposed Amount of bleeding with debridement: Mild Bleeding Controlled with: Pressure Patient tolerated procedure: Patient tolerated procedure well - Additional Wound Wound debrided: Right great toe Wound Grade/Stage: Stage II Type of Debridement: Excisional debridement Anesthesia Used: 4% Lidocaine Solution Depth: Down to and including healthy tissue, in the subcutaneous layer Percentage of wound debrided: 100 Instrument Used: 3mm curette Tissue Removed: Slough and devitalized tissue Severity: Fat Layer Exposed Amount of bleeding with debridement: Mild Bleeding Controlled with: Pressure Patient tolerated procedure: Patient tolerated procedure well Assessment/Plan Active Problems (Last Reviewed 09/29/18 @ 08:24 by Nya Tong) Chronic ulcer of right great toe with fat layer exposed (Chronic) Traumatic ulcer of left foot with fat layer exposed (Chronic) Peripheral arterial disease (Chronic) Assessment: Traumatic ulcer of the left dorsal foot and chronic right great toe ulcer in a patient with poorly controlled diabetes mellitus. Plan: Left lateral foot ulcer. Most likely from pressure. Debridement of done as documented above. Procedure was well-tolerated. Promogran with Adaptic over top to all. Change daily to twice daily. Optifoam over left lateral foot. Double layer Tubigrip for edema management. Offloading strongly recommended for right lower extremity. Advised to follow-up with her hearing dog trainer for proper fitting. Increased protein intake recommended. Optimal blood sugar control also strongly recommended. She was advised to follow-up with her PCP to adjust her insulin. All her questions were answered and she was advised to call with any further questions or concerns. Follow-up in 1 week. This note was generated with [employer] software. It may contain incorrect words, spelling, and punctuation that were not noted in checking the note before signing.
--- NOTE | 2018-10-08 11:12 | PN.PCM_ITS ---
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 Status: Chronic Current Visit: Yes Code(s): L97.512 - Non-pressure chronic ulcer of other part of right foot with fat layer exposed (2) Peripheral arterial disease Status: Chronic Current Visit: Yes Code(s): I73.9 - Peripheral vascular disease, unspecified (3) Traumatic ulcer of left foot with fat layer exposed Status: Chronic Current Visit: Yes Code(s): L97.522 - Non-pressure chronic ulcer of other part of left foot with fat layer exposed Type of Wound Chief Complaint: Traumatic ulceration of left foot and chronic right great toe ulcer. History of Wound: Ms. Rothman is a 78-year-old who was referred to the wound center by her power machine operator for continued wound care. She has a chronic right great toe ulcer which she has been managing conservatively at home for about 6 months. However, she presented to a power machine operator due to left foot ulcer. She had a bowel drop on her foot about 3 weeks ago. She subsequently developed discoloration and swelling for which she was seen in the emergency room. Imaging done at that time was without any significant abnormality. Plan was to conservatively manage. However about a week ago. She noted an opening over the area with associated drainage/discharge. She was seen by her power machine operator and vacuum therapy was recommended. She reports a history of diabetes which is not well controlled. Last A1c per patient was around 9. She is currently on insulin. Progress of Wound: She presents with a new left lateral foot ulcer. She has a bony defect at that area which rubs against her shoes. She denies significant pain or discharge. - Physical Exam Vital Signs Temp Pulse Resp BP 97.4 F L 57 L 18 136/63 H 10/08/18 09:30 10/08/18 09:30 10/08/18 09:30 10/08/18 09:30 General: Alert, Oriented x3, Cooperative, No apparent distress HEENT: Atraumatic, Normocephalic Oral: Moist Mucosa Neck: Supple Lungs: Normal air movement Extremities: No cyanosis Wound Measurements and Assessment WC - Nurse 1 - General Ulcer Measurement Start: 10/01/18 08:53 Freq: Status: Active Protocol: Activity Type Activity Date Activity User E-Sign Co-Sign Detail Recorded Client Recorded Date Recorded By Document 03/14/19 09:30 AN [id number] 10/08/18 09:42 AN 10/08/18 09:30 Wound Center Nurse 1 [Ulcer Assessment] #3 R Grt Toe Plantar -Current Size (cm) - Length 0.1 -Current Size (cm) - Width 0.1 -Current Size (cm) - Depth 0.1 -Total Square Cm 0.01 -Epithelialization None Present -Classification - Thickness Unclassifiable (Eschar Covered ) -Exudate Amt None Present -Necrosis Amt None Present (0 %) #2 L Foot Dorsal -Current Size (cm) - Length 1.4 -Current Size (cm) - Width 0.7 -Current Size (cm) - Depth 0.1 -Total Square Cm 0.98 -Epithelialization None Present -Tunneling No -Undermining/Tunneling No -Classification - Thickness Full Thickness without Exposed Support Structure -Exudate Amt Medium -Exudate Type Serosanguineous -Wound Margin Distinct, Outline Attached -Granulation Amt Medium (34-66%) -Granulation Quality Pale [place] -Slough/Fibrin Yes -Necrosis Amt Medium (34-66%) -Necrotic Tissue Type Adherent Slough -Structure Exposed None/Limited to Skin Breakdown -Texture (Amy-wound Skin Appearance) Assessed -Moisture (Amy-wound Skin Appearance Assessed ) -Color (Amy-wound Skin Appearance) Assessed -Temperature (Amy-wound Skin No Abnormality Appearance) (Pt Warm) -Tenderness on Palpation (Amy-wound Yes Skin Appearance) -Ulcer Cleansing Rinsed/ Irrigated with Saline -Foul Odor after Cleansing No -Anesthetic Used 4% Lidocaine Solution WC - Nurse 2 - General Ulcer CM Notes Start: 10/01/18 08:53 Freq: Status: Active Protocol: Activity Type Activity Date Activity User E-Sign Co-Sign Detail Recorded Client Recorded Date Recorded By Document 10/08/18 10:04 MW [id number] 10/08/18 10:14 MW 10/08/18 10:04 Wound Center Nurse 2 [Procedure/Treatment] #4 left lateral foot -Time 10:06 -Correct Patient Yes -Correct Side, Site, Position Yes -Correct Procedure Yes -Procedure Performed Yes -Type of Procedure Debridement -Clinical Debridement Subcutaneous -Post Debridement Size (cm) - Length 0.7 -Post Debridement Size (cm) - Width 0.7 -Post Debridement Size (cm) - Depth 0.1 -Total Square Cm 0.49 -Wound/Ulcer Outcome Not Healed -Ulcer Cleansing Rinsed/ Irrigated with Saline -Foul Odor after Cleansing No -Bioengineered Tissue No -Bleeding Controlled with Pressure -Offloading No -Treatment Response Procedure Tolerated Well #3 R Grt Toe Plantar -Time 10:05 -Correct Patient Yes -Correct Side, Site, Position Yes -Correct Procedure Yes -Procedure Performed Yes -Type of Procedure Debridement -Clinical Debridement Subcutaneous -Post Debridement Size (cm) - Length 0.2 -Post Debridement Size (cm) - Width 0.1 -Post Debridement Size (cm) - Depth 0.1 -Total Square Cm 0.02 -Wound/Ulcer Outcome Not Healed -Ulcer Cleansing Rinsed/ Irrigated with Saline -Foul Odor after Cleansing No -Bioengineered Tissue No -Bleeding Controlled with Pressure -Offloading No -Treatment Response Procedure Tolerated Well #2 L Foot Dorsal -Time 10:05 -Correct Patient Yes -Correct Side, Site, Position Yes -Correct Procedure Yes -Procedure Performed Yes -Type of Procedure Debridement -Clinical Debridement Subcutaneous -Post Debridement Size (cm) - Length 0.9 -Post Debridement Size (cm) - Width 0.9 -Post Debridement Size (cm) - Depth 0.2 -Total Square Cm 0.81 -Wound/Ulcer Outcome Not Healed -Ulcer Cleansing Rinsed/ Irrigated with Saline -Foul Odor after Cleansing No -Bioengineered Tissue No -Bleeding Controlled with Pressure -Offloading No -Treatment Response Procedure Tolerated Well [See Physician Procedure note for Specifics] Pain Scale: 0-10 Numeric [Pain] -Is Patient Pain Free? Yes Neurological: Cranial nerves II-XII grossly intact Psych/Mental Status: Normal Affect Debridement Note Post-Debridement Measurements/Treatment WC - Nurse 2 - General Ulcer CM Notes Start: 10/01/18 08:53 Freq: Status: Active Protocol: Activity Type Activity Date Activity User E-Sign Co-Sign Detail Recorded Client Recorded Date Recorded By Document 10/01/18 09:11 MW [id number] 10/01/18 09:16 MW Document 10/08/18 10:04 MW [id number] 10/08/18 10:14 MW 10/01/18 10/08/18 09:11 10:04 Wound Center Nurse 2 #4 left lateral foot -Time 10:06 -Correct Patient Yes -Correct Side, Site, Position Yes -Correct Procedure Yes -Procedure Performed Yes -Type of Procedure Debridement -Clinical Debridement Subcutaneous -Post Debridement Size (cm) - Length 0.7 -Post Debridement Size (cm) - Width 0.7 -Post Debridement Size (cm) - Depth 0.1 -Total Square Cm 0.49 -Wound/Ulcer Outcome Not Healed -Ulcer Cleansing Rinsed/ Irrigated with Saline -Foul Odor after Cleansing No -Bioengineered Tissue No -Bleeding Controlled with Pressure -Offloading No -Treatment Response Procedure Tolerated Well #3 R Grt Toe Plantar -Time 09:13 10:05 -Correct Patient Yes Yes -Correct Side, Site, Position Yes Yes -Correct Procedure Yes Yes -Procedure Performed Yes Yes -Type of Procedure Debridement Debridement -Clinical Debridement Subcutaneous Subcutaneous -Post Debridement Size (cm) - Length 0.3 0.2 -Post Debridement Size (cm) - Width 0.3 0.1 -Post Debridement Size (cm) - Depth 0.1 0.1 -Total Square Cm 0.09 0.02 -Wound/Ulcer Outcome Not Healed Not Healed -Ulcer Cleansing Rinsed/ Rinsed/ Irrigated with Irrigated with Saline Saline -Foul Odor after Cleansing No No -Bioengineered Tissue No No -Bleeding Controlled with Pressure Pressure -Offloading No No -Treatment Response Procedure Procedure Tolerated Well Tolerated Well #2 L Foot Dorsal -Time 09:11 10:05 -Correct Patient Yes Yes -Correct Side, Site, Position Yes Yes -Correct Procedure Yes Yes -Procedure Performed Yes Yes -Type of Procedure Debridement Debridement -Clinical Debridement Subcutaneous Subcutaneous -Post Debridement Size (cm) - Length 1.2 0.9 -Post Debridement Size (cm) - Width 0.5 0.9 -Post Debridement Size (cm) - Depth 0.2 0.2 -Total Square Cm 0.60 0.81 -Wound/Ulcer Outcome Not Healed Not Healed -Ulcer Cleansing Rinsed/ Rinsed/ Irrigated with Irrigated with Saline Saline -Foul Odor after Cleansing No No -Bioengineered Tissue No No -Bleeding Controlled with Pressure Pressure -Offloading No No -Treatment Response Procedure Procedure Tolerated Well Tolerated Well Pain Scale: 0-10 Numeric Is Patient Pain Free? No Yes Wound debrided: Left dorsal foot Wound Grade/Stage: Stage III Type of Debridement: Excisional debridement Anesthesia Used: 4% Lidocaine Solution Depth: Down to and including healthy tissue, in the subcutaneous layer Percentage of wound debrided: 100 Instrument Used: 3mm curette Tissue Removed: Slough and devitalized tissue Severity: Fat Layer Exposed Amount of bleeding with debridement: Mild Bleeding Controlled with: Pressure Patient tolerated procedure well - Additional Wound Wound debrided: Left lateral foot Wound Grade/Stage: Stage II Type of Debridement: Excisional debridement Anesthesia Used: 4% Lidocaine Solution Depth: Down to and including healthy tissue, in the subcutaneous layer Percentage of wound debrided: 100 Instrument Used: 3mm curette Tissue Removed: Slough and devitalized tissue Severity: Fat Layer Exposed Amount of bleeding with debridement: Mild Bleeding Controlled with: Pressure Patient tolerated procedure: Patient tolerated procedure well - Additional Wound Wound debrided: Right great toe Wound Grade/Stage: Stage II Type of Debridement: Excisional debridement Anesthesia Used: 4% Lidocaine Solution Depth: Down to and including healthy tissue, in the subcutaneous layer Percentage of wound debrided: 100 Instrument Used: 3mm curette Tissue Removed: Slough and devitalized tissue Severity: Fat Layer Exposed Amount of bleeding with debridement: Mild Bleeding Controlled with: Pressure Patient tolerated procedure: Patient tolerated procedure well Assessment/Plan Active Problems (Last Reviewed 09/29/18 @ 08:24 by Nya Tong) Chronic ulcer of right great toe with fat layer exposed (Chronic) Traumatic ulcer of left foot with fat layer exposed (Chronic) Peripheral arterial disease (Chronic) Assessment: Traumatic ulcer of the left dorsal foot and chronic right great toe ulcer in a patient with poorly controlled diabetes mellitus. Plan: Left lateral foot ulcer. Most likely from pressure. Debridement of done as documented above. Procedure was well-tolerated. Promogran with Adaptic over top to all. Change daily to twice daily. Optifoam over left lateral foot. Double layer Tubigrip for edema management. Offloading strongly recommended for right lower extremity. Advised to follow-up with her power machine operator for proper fitting. Increased protein intake recommended. Optimal blood sugar control also strongly recommended. She was advised to follow-up with her PCP to adjust her insulin. All her questions were answered and she was advised to call with any further questions or concerns. Follow-up in 1 week. This note was generated with [employer] software. It may contain incorrect words, spelling, and punctuation that were not noted in checking the note before signing.
[2018-10-15 11:09] VITALS: BP 109/55; PULSE 61; RESP 16; TEMP 36.6; BMI 29.6
--- NOTE | 2018-10-15 12:14 | PCM.WC.PN ---
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 Status: Chronic Current Visit: Yes Code(s): L97.512 - Non-pressure chronic ulcer of other part of right foot with fat layer exposed (2) Peripheral arterial disease Status: Chronic Current Visit: Yes Code(s): I73.9 - Peripheral vascular disease, unspecified (3) Traumatic ulcer of left foot with fat layer exposed Status: Chronic Current Visit: Yes Code(s): L97.522 - Non-pressure chronic ulcer of other part of left foot with fat layer exposed (4) Ulcer of left foot Status: Acute Current Visit: Yes Code(s): L97.529 - Non-pressure chronic ulcer of other part of left foot with unspecified severity Type of Wound Chief Complaint: Traumatic ulceration of left foot and chronic right great toe ulcer. History of Wound: Ms. Rothman is a 78-year-old who was referred to the wound center by her die stamping press operator for continued wound care. She has a chronic right great toe ulcer which she has been managing conservatively at home for about 6 months. However, she presented to a die stamping press operator due to left foot ulcer. She had a bowel drop on her foot about 3 weeks ago. She subsequently developed discoloration and swelling for which she was seen in the emergency room. Imaging done at that time was without any significant abnormality. Plan was to conservatively manage. However about a week ago. She noted an opening over the area with associated drainage/discharge. She was seen by her die stamping press operator and vacuum therapy was recommended. She reports a history of diabetes which is not well controlled. Last A1c per patient was around 9. She is currently on insulin. Progress of Wound: Left lateral foot ulcer has healed. - Physical Exam Vital Signs Temp Pulse Resp BP 98 F 61 16 109/55 L 10/15/18 11:09 10/15/18 11:09 10/15/18 11:09 10/15/18 11:09 General: Alert, Oriented x3, Cooperative, No apparent distress HEENT: Atraumatic, Normocephalic Oral: Moist Mucosa Neck: Supple Lungs: Normal air movement Abdomen: Non Tender Extremities: No cyanosis Skin: Ulcer/ Wound Wound Measurements and Assessment WC - Nurse 1 - General Ulcer Measurement Start: 10/01/18 08:53 Freq: Status: Active Protocol: Activity Type Activity Date Activity User E-Sign Co-Sign Detail Recorded Client Recorded Date Recorded By Document 10/15/18 11:09 [facility] [id number] 10/15/18 11:24 [facility] 10/15/18 11:09 Wound Center Nurse 1 [Ulcer Assessment] #4 left lateral foot -Combined with other wound No -Current Size (cm) - Length 0.1 -Current Size (cm) - Width 0.1 -Current Size (cm) - Depth 0.1 -Total Square Cm 0.01 -Date of Last Picture (Recall this 10/15/18 field) -Photo Taken Yes -Epithelialization Large 67-100% -Tunneling No -Undermining/Tunneling No -Circular Undermining No -Exudate Amt None Present -Texture (Amy-wound Skin Appearance) Assessed Scarring -Moisture (Amy-wound Skin Appearance Assessed ) Dry/Scaly -Color (Amy-wound Skin Appearance) Assessed -Temperature (Amy-wound Skin No Abnormality Appearance) (Pt Warm) -Tenderness on Palpation (Amy-wound No Skin Appearance) -Ulcer Cleansing Rinsed/ Irrigated with Saline -Foul Odor after Cleansing No -Anesthetic Used 4% Lidocaine Solution #3 R Grt Toe Plantar -Combined with other wound No -Current Size (cm) - Length 0.2 -Current Size (cm) - Width 0.1 -Current Size (cm) - Depth 0.2 -Total Square Cm 0.02 -Date of Last Picture (Recall this 10/15/18 field) -Photo Taken Yes -Epithelialization None Present -Tunneling No -Undermining/Tunneling Yes -Undermining/Tunneling Starts (O' 12 clock) -Undermining/Tunneling Ends (O'clock) 12 -Maximum Distance (cm) 0.2 -Circular Undermining Yes -Exudate Amt Small -Exudate Type Serosanguineous -Wound Margin Flat & Intact -Granulation Amt Large (67-100%) -Granulation Quality [place] -Slough/Fibrin Yes -Necrosis Amt Small (1-33%) -Necrotic Tissue Type Adherent Slough -Texture (Amy-wound Skin Appearance) Callus Scarring -Moisture (Amy-wound Skin Appearance Dry/Scaly ) -Color (Amy-wound Skin Appearance) Assessed -Temperature (Amy-wound Skin No Abnormality Appearance) (Pt Warm) -Tenderness on Palpation (Amy-wound No Skin Appearance) -Ulcer Cleansing Rinsed/ Irrigated with Saline -Foul Odor after Cleansing No -Anesthetic Used 4% Lidocaine Solution #2 L Foot Dorsal -Combined with other wound No -Current Size (cm) - Length 1.2 -Current Size (cm) - Width 0.8 -Current Size (cm) - Depth 0.1 -Total Square Cm 0.96 -Date of Last Picture (Recall this 10/15/18 field) -Photo Taken Yes -Epithelialization Small 1-33% -Tunneling No -Undermining/Tunneling No -Circular Undermining No -Exudate Amt Small -Exudate Type Serosanguineous -Wound Margin Flat & Intact -Granulation Amt Medium (34-66%) -Granulation Quality [place] -Slough/Fibrin Yes -Necrosis Amt Medium (34-66%) -Necrotic Tissue Type Adherent Slough -Texture (Amy-wound Skin Appearance) Scarring -Moisture (Amy-wound Skin Appearance Assessed ) -Color (Amy-wound Skin Appearance) Assessed -Temperature (Amy-wound Skin No Abnormality Appearance) (Pt Warm) -Tenderness on Palpation (Amy-wound No Skin Appearance) -Ulcer Cleansing Rinsed/ Irrigated with Saline -Foul Odor after Cleansing No -Anesthetic Used 4% Lidocaine Solution [Edema Assessment] -Lower Limb Edema Present Yes -Right Calf (cm) 33 -Right Ankle (cm) 22 -Left Calf (cm) 33.6 -Left Ankle (cm) 22 WC - Nurse 2 - General Ulcer CM Notes Start: 10/01/18 08:53 Freq: Status: Active Protocol: Activity Type Activity Date Activity User E-Sign Co-Sign Detail Recorded Client Recorded Date Recorded By Document 10/15/18 11:43 MW [id number] 10/15/18 11:46 MW 10/15/18 11:43 Wound Center Nurse 2 [Procedure/Treatment] #4 left lateral foot -Time 11:44 -Correct Patient Yes -Correct Side, Site, Position Yes -Correct Procedure Yes -Procedure Performed Yes -Type of Procedure Debridement -Clinical Debridement Subcutaneous -Post Debridement Size (cm) - Length 0.9 -Post Debridement Size (cm) - Width 0.6 -Post Debridement Size (cm) - Depth 0.1 -Total Square Cm 0.54 -Wound/Ulcer Outcome Not Healed -Ulcer Cleansing Rinsed/ Irrigated with Saline -Foul Odor after Cleansing No -Bioengineered Tissue No -Bleeding Controlled with Pressure -Offloading No -Treatment Response Procedure Tolerated Well #3 R Grt Toe Plantar -Time 11:44 -Correct Patient Yes -Correct Side, Site, Position Yes -Correct Procedure Yes -Procedure Performed Yes -Type of Procedure Debridement -Clinical Debridement Subcutaneous -Post Debridement Size (cm) - Length 0.1 -Post Debridement Size (cm) - Width 0.1 -Post Debridement Size (cm) - Depth 0.1 -Total Square Cm 0.01 -Wound/Ulcer Outcome Not Healed -Ulcer Cleansing Rinsed/ Irrigated with Saline -Foul Odor after Cleansing No -Bioengineered Tissue No -Bleeding Controlled with Pressure -Offloading No -Treatment Response Procedure Tolerated Well #2 L Foot Dorsal -Time 11:44 -Correct Patient Yes -Correct Side, Site, Position Yes -Correct Procedure Yes -Procedure Performed No -Post Debridement Size (cm) - Length 0 -Post Debridement Size (cm) - Width 0 -Post Debridement Size (cm) - Depth 0 -Total Square Cm 0 -Wound/Ulcer Outcome Healed- Epithelialized [See Physician Procedure note for Specifics] Pain Scale: 0-10 Numeric [Pain] -Is Patient Pain Free? Yes Musculoskeletal: No Muscle Wasting Neurological: Cranial nerves II-XII grossly intact Psych/Mental Status: Normal Affect Debridement Note Post-Debridement Measurements/Treatment WC - Nurse 2 - General Ulcer CM Notes Start: 10/01/18 08:53 Freq: Status: Active Protocol: Activity Type Activity Date Activity User E-Sign Co-Sign Detail Recorded Client Recorded Date Recorded By Document 10/01/18 09:11 MW [id number] 10/01/18 09:16 MW Document 10/08/18 10:04 MW [id number] 10/08/18 10:14 MW Document 10/15/18 11:43 MW [id number] 10/15/18 11:46 MW 10/01/18 10/08/18 10/15/18 09:11 10:04 11:43 Wound Center Nurse 2 #4 left lateral foot -Time 10:06 11:44 -Correct Patient Yes Yes -Correct Side, Site, Position Yes Yes -Correct Procedure Yes Yes -Procedure Performed Yes Yes -Type of Procedure Debridement Debridement -Clinical Debridement Subcutaneous Subcutaneous -Post Debridement Size (cm) - Length 0.7 0.9 -Post Debridement Size (cm) - Width 0.7 0.6 -Post Debridement Size (cm) - Depth 0.1 0.1 -Total Square Cm 0.49 0.54 -Wound/Ulcer Outcome Not Healed Not Healed -Ulcer Cleansing Rinsed/ Rinsed/ Irrigated with Irrigated with Saline Saline -Foul Odor after Cleansing No No -Bioengineered Tissue No No -Bleeding Controlled with Pressure Pressure -Offloading No No -Treatment Response Procedure Procedure Tolerated Well Tolerated Well #3 R Grt Toe Plantar -Time 09:13 10:05 11:44 -Correct Patient Yes Yes Yes -Correct Side, Site, Position Yes Yes Yes -Correct Procedure Yes Yes Yes -Procedure Performed Yes Yes Yes -Type of Procedure Debridement Debridement Debridement -Clinical Debridement Subcutaneous Subcutaneous Subcutaneous -Post Debridement Size (cm) - Length 0.3 0.2 0.1 -Post Debridement Size (cm) - Width 0.3 0.1 0.1 -Post Debridement Size (cm) - Depth 0.1 0.1 0.1 -Total Square Cm 0.09 0.02 0.01 -Wound/Ulcer Outcome Not Healed Not Healed Not Healed -Ulcer Cleansing Rinsed/ Rinsed/ Rinsed/ Irrigated with Irrigated with Irrigated with Saline Saline Saline -Foul Odor after Cleansing No No No -Bioengineered Tissue No No No -Bleeding Controlled with Pressure Pressure Pressure -Offloading No No No -Treatment Response Procedure Procedure Procedure Tolerated Well Tolerated Well Tolerated Well #2 L Foot Dorsal -Time 09:11 10:05 11:44 -Correct Patient Yes Yes Yes -Correct Side, Site, Position Yes Yes Yes -Correct Procedure Yes Yes Yes -Procedure Performed Yes Yes No -Type of Procedure Debridement Debridement -Clinical Debridement Subcutaneous Subcutaneous -Post Debridement Size (cm) - Length 1.2 0.9 0 -Post Debridement Size (cm) - Width 0.5 0.9 0 -Post Debridement Size (cm) - Depth 0.2 0.2 0 -Total Square Cm 0.60 0.81 0 -Wound/Ulcer Outcome Not Healed Not Healed Healed- Epithelialized -Ulcer Cleansing Rinsed/ Rinsed/ Irrigated with Irrigated with Saline Saline -Foul Odor after Cleansing No No -Bioengineered Tissue No No -Bleeding Controlled with Pressure Pressure -Offloading No No -Treatment Response Procedure Procedure Tolerated Well Tolerated Well Pain Scale: 0-10 Numeric Is Patient Pain Free? No Yes Yes Wound debrided: Right great toe Wound Grade/Stage: Stage II Type of Debridement: Excisional debridement Anesthesia Used: 4% Lidocaine Solution Depth: Down to and including healthy tissue, in the subcutaneous layer Percentage of wound debrided: 100 Instrument Used: 3mm curette Tissue Removed: Slough and devitalized tissue Severity: Fat Layer Exposed Amount of bleeding with debridement: Mild Bleeding Controlled with: Pressure Patient tolerated procedure well - Additional Wound Wound debrided: Left dorsal foot Wound Grade/Stage: Stage III Type of Debridement: Excisional debridement Anesthesia Used: 4% Lidocaine Solution Depth: Down to and including healthy tissue, in the subcutaneous layer Percentage of wound debrided: 100 Instrument Used: 5mm curette Tissue Removed: Slough and devitalized tissue Severity: Fat Layer Exposed Amount of bleeding with debridement: Mild Bleeding Controlled with: Pressure Patient tolerated procedure: Patient tolerated procedure well Assessment/Plan Active Problems (Last Reviewed 09/29/18 @ 08:24 by Nya Tong) Chronic ulcer of right great toe with fat layer exposed (Chronic) Traumatic ulcer of left foot with fat layer exposed (Chronic) Peripheral arterial disease (Chronic) Ulcer of left foot (Acute) Assessment: Traumatic ulcer of the left dorsal foot and chronic right great toe ulcer in a patient with poorly controlled diabetes mellitus. Plan: Left lateral foot ulcer healed. Debridement of done as documented above. Procedure was well-tolerated. Continue Promogran with Adaptic over top to both. Change daily to twice daily. Adaptic and Optifoam over left lateral foot. Double layer Tubigrip for edema management. Offloading strongly recommended for right lower extremity. Advised to follow-up with her die stamping press operator for proper fitting. Increased protein intake recommended. Optimal blood sugar control also strongly recommended. She was advised to follow-up with her PCP to adjust her insulin. All her questions were answered and she was advised to call with any further questions or concerns. Follow-up in 1 week. This note was generated with [employer] software. It may contain incorrect words, spelling, and punctuation that were not noted in checking the note before signing.
--- NOTE | 2018-10-15 12:17 | PN.PCM_ITS ---
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 Status: Chronic Current Visit: Yes Code(s): L97.512 - Non-pressure chronic ulcer of other part of right foot with fat layer exposed (2) Peripheral arterial disease Status: Chronic Current Visit: Yes Code(s): I73.9 - Peripheral vascular disease, unspecified (3) Traumatic ulcer of left foot with fat layer exposed Status: Chronic Current Visit: Yes Code(s): L97.522 - Non-pressure chronic ulcer of other part of left foot with fat layer exposed (4) Ulcer of left foot Status: Acute Current Visit: Yes Code(s): L97.529 - Non-pressure chronic ulcer of other part of left foot with unspecified severity Type of Wound Chief Complaint: Traumatic ulceration of left foot and chronic right great toe ulcer. History of Wound: Ms. Rothman is a 78-year-old who was referred to the wound center by her rotary shear worker helper for continued wound care. She has a chronic right great toe ulcer which she has been managing conservatively at home for about 6 months. However, she presented to a rotary shear worker helper due to left foot ulcer. She had a bowel drop on her foot about 3 weeks ago. She subsequently developed discoloration and swelling for which she was seen in the emergency room. Imaging done at that time was without any significant abnormality. Plan was to conservatively manage. However about a week ago. She noted an opening over the area with associated drainage/discharge. She was seen by her rotary shear worker helper and vacuum therapy was recommended. She reports a history of diabetes which is not well controlled. Last A1c per patient was around 9. She is currently on insulin. Progress of Wound: Left lateral foot ulcer has healed. - Physical Exam Vital Signs Temp Pulse Resp BP 98 F 61 16 109/55 L 10/15/18 11:09 10/15/18 11:09 10/15/18 11:09 10/15/18 11:09 General: Alert, Oriented x3, Cooperative, No apparent distress HEENT: Atraumatic, Normocephalic Oral: Moist Mucosa Neck: Supple Lungs: Normal air movement Abdomen: Non Tender Extremities: No cyanosis Skin: Ulcer/ Wound Wound Measurements and Assessment WC - Nurse 1 - General Ulcer Measurement Start: 10/01/18 08:53 Freq: Status: Active Protocol: Activity Type Activity Date Activity User E-Sign Co-Sign Detail Recorded Client Recorded Date Recorded By Document 10/15/18 11:09 [facility] [id number] 10/15/18 11:24 [facility] 10/15/18 11:09 Wound Center Nurse 1 [Ulcer Assessment] #4 left lateral foot -Combined with other wound No -Current Size (cm) - Length 0.1 -Current Size (cm) - Width 0.1 -Current Size (cm) - Depth 0.1 -Total Square Cm 0.01 -Date of Last Picture (Recall this 10/15/18 field) -Photo Taken Yes -Epithelialization Large 67-100% -Tunneling No -Undermining/Tunneling No -Circular Undermining No -Exudate Amt None Present -Texture (Amy-wound Skin Appearance) Assessed Scarring -Moisture (Amy-wound Skin Appearance Assessed ) Dry/Scaly -Color (Amy-wound Skin Appearance) Assessed -Temperature (Amy-wound Skin No Abnormality Appearance) (Pt Warm) -Tenderness on Palpation (Amy-wound No Skin Appearance) -Ulcer Cleansing Rinsed/ Irrigated with Saline -Foul Odor after Cleansing No -Anesthetic Used 4% Lidocaine Solution #3 R Grt Toe Plantar -Combined with other wound No -Current Size (cm) - Length 0.2 -Current Size (cm) - Width 0.1 -Current Size (cm) - Depth 0.2 -Total Square Cm 0.02 -Date of Last Picture (Recall this 10/15/18 field) -Photo Taken Yes -Epithelialization None Present -Tunneling No -Undermining/Tunneling Yes -Undermining/Tunneling Starts (O' 12 clock) -Undermining/Tunneling Ends (O'clock) 12 -Maximum Distance (cm) 0.2 -Circular Undermining Yes -Exudate Amt Small -Exudate Type Serosanguineous -Wound Margin Flat & Intact -Granulation Amt Large (67-100%) -Granulation Quality [place] -Slough/Fibrin Yes -Necrosis Amt Small (1-33%) -Necrotic Tissue Type Adherent Slough -Texture (Amy-wound Skin Appearance) Callus Scarring -Moisture (Amy-wound Skin Appearance Dry/Scaly ) -Color (Amy-wound Skin Appearance) Assessed -Temperature (Amy-wound Skin No Abnormality Appearance) (Pt Warm) -Tenderness on Palpation (Amy-wound No Skin Appearance) -Ulcer Cleansing Rinsed/ Irrigated with Saline -Foul Odor after Cleansing No -Anesthetic Used 4% Lidocaine Solution #2 L Foot Dorsal -Combined with other wound No -Current Size (cm) - Length 1.2 -Current Size (cm) - Width 0.8 -Current Size (cm) - Depth 0.1 -Total Square Cm 0.96 -Date of Last Picture (Recall this 10/15/18 field) -Photo Taken Yes -Epithelialization Small 1-33% -Tunneling No -Undermining/Tunneling No -Circular Undermining No -Exudate Amt Small -Exudate Type Serosanguineous -Wound Margin Flat & Intact -Granulation Amt Medium (34-66%) -Granulation Quality [place] -Slough/Fibrin Yes -Necrosis Amt Medium (34-66%) -Necrotic Tissue Type Adherent Slough -Texture (Amy-wound Skin Appearance) Scarring -Moisture (Amy-wound Skin Appearance Assessed ) -Color (Amy-wound Skin Appearance) Assessed -Temperature (Amy-wound Skin No Abnormality Appearance) (Pt Warm) -Tenderness on Palpation (Amy-wound No Skin Appearance) -Ulcer Cleansing Rinsed/ Irrigated with Saline -Foul Odor after Cleansing No -Anesthetic Used 4% Lidocaine Solution [Edema Assessment] -Lower Limb Edema Present Yes -Right Calf (cm) 33 -Right Ankle (cm) 22 -Left Calf (cm) 33.6 -Left Ankle (cm) 22 WC - Nurse 2 - General Ulcer CM Notes Start: 10/01/18 08:53 Freq: Status: Active Protocol: Activity Type Activity Date Activity User E-Sign Co-Sign Detail Recorded Client Recorded Date Recorded By Document 10/15/18 11:43 MW [id number] 10/15/18 11:46 MW 10/15/18 11:43 Wound Center Nurse 2 [Procedure/Treatment] #4 left lateral foot -Time 11:44 -Correct Patient Yes -Correct Side, Site, Position Yes -Correct Procedure Yes -Procedure Performed Yes -Type of Procedure Debridement -Clinical Debridement Subcutaneous -Post Debridement Size (cm) - Length 0.9 -Post Debridement Size (cm) - Width 0.6 -Post Debridement Size (cm) - Depth 0.1 -Total Square Cm 0.54 -Wound/Ulcer Outcome Not Healed -Ulcer Cleansing Rinsed/ Irrigated with Saline -Foul Odor after Cleansing No -Bioengineered Tissue No -Bleeding Controlled with Pressure -Offloading No -Treatment Response Procedure Tolerated Well #3 R Grt Toe Plantar -Time 11:44 -Correct Patient Yes -Correct Side, Site, Position Yes -Correct Procedure Yes -Procedure Performed Yes -Type of Procedure Debridement -Clinical Debridement Subcutaneous -Post Debridement Size (cm) - Length 0.1 -Post Debridement Size (cm) - Width 0.1 -Post Debridement Size (cm) - Depth 0.1 -Total Square Cm 0.01 -Wound/Ulcer Outcome Not Healed -Ulcer Cleansing Rinsed/ Irrigated with Saline -Foul Odor after Cleansing No -Bioengineered Tissue No -Bleeding Controlled with Pressure -Offloading No -Treatment Response Procedure Tolerated Well #2 L Foot Dorsal -Time 11:44 -Correct Patient Yes -Correct Side, Site, Position Yes -Correct Procedure Yes -Procedure Performed No -Post Debridement Size (cm) - Length 0 -Post Debridement Size (cm) - Width 0 -Post Debridement Size (cm) - Depth 0 -Total Square Cm 0 -Wound/Ulcer Outcome Healed- Epithelialized [See Physician Procedure note for Specifics] Pain Scale: 0-10 Numeric [Pain] -Is Patient Pain Free? Yes Musculoskeletal: No Muscle Wasting Neurological: Cranial nerves II-XII grossly intact Psych/Mental Status: Normal Affect Debridement Note Post-Debridement Measurements/Treatment WC - Nurse 2 - General Ulcer CM Notes Start: 10/01/18 08:53 Freq: Status: Active Protocol: Activity Type Activity Date Activity User E-Sign Co-Sign Detail Recorded Client Recorded Date Recorded By Document 10/01/18 09:11 MW [id number] 10/01/18 09:16 MW Document 10/08/18 10:04 MW [id number] 10/08/18 10:14 MW Document 10/15/18 11:43 MW [id number] 10/15/18 11:46 MW 10/01/18 10/08/18 10/15/18 09:11 10:04 11:43 Wound Center Nurse 2 #4 left lateral foot -Time 10:06 11:44 -Correct Patient Yes Yes -Correct Side, Site, Position Yes Yes -Correct Procedure Yes Yes -Procedure Performed Yes Yes -Type of Procedure Debridement Debridement -Clinical Debridement Subcutaneous Subcutaneous -Post Debridement Size (cm) - Length 0.7 0.9 -Post Debridement Size (cm) - Width 0.7 0.6 -Post Debridement Size (cm) - Depth 0.1 0.1 -Total Square Cm 0.49 0.54 -Wound/Ulcer Outcome Not Healed Not Healed -Ulcer Cleansing Rinsed/ Rinsed/ Irrigated with Irrigated with Saline Saline -Foul Odor after Cleansing No No -Bioengineered Tissue No No -Bleeding Controlled with Pressure Pressure -Offloading No No -Treatment Response Procedure Procedure Tolerated Well Tolerated Well #3 R Grt Toe Plantar -Time 09:13 10:05 11:44 -Correct Patient Yes Yes Yes -Correct Side, Site, Position Yes Yes Yes -Correct Procedure Yes Yes Yes -Procedure Performed Yes Yes Yes -Type of Procedure Debridement Debridement Debridement -Clinical Debridement Subcutaneous Subcutaneous Subcutaneous -Post Debridement Size (cm) - Length 0.3 0.2 0.1 -Post Debridement Size (cm) - Width 0.3 0.1 0.1 -Post Debridement Size (cm) - Depth 0.1 0.1 0.1 -Total Square Cm 0.09 0.02 0.01 -Wound/Ulcer Outcome Not Healed Not Healed Not Healed -Ulcer Cleansing Rinsed/ Rinsed/ Rinsed/ Irrigated with Irrigated with Irrigated with Saline Saline Saline -Foul Odor after Cleansing No No No -Bioengineered Tissue No No No -Bleeding Controlled with Pressure Pressure Pressure -Offloading No No No -Treatment Response Procedure Procedure Procedure Tolerated Well Tolerated Well Tolerated Well #2 L Foot Dorsal -Time 09:11 10:05 11:44 -Correct Patient Yes Yes Yes -Correct Side, Site, Position Yes Yes Yes -Correct Procedure Yes Yes Yes -Procedure Performed Yes Yes No -Type of Procedure Debridement Debridement -Clinical Debridement Subcutaneous Subcutaneous -Post Debridement Size (cm) - Length 1.2 0.9 0 -Post Debridement Size (cm) - Width 0.5 0.9 0 -Post Debridement Size (cm) - Depth 0.2 0.2 0 -Total Square Cm 0.60 0.81 0 -Wound/Ulcer Outcome Not Healed Not Healed Healed- Epithelialized -Ulcer Cleansing Rinsed/ Rinsed/ Irrigated with Irrigated with Saline Saline -Foul Odor after Cleansing No No -Bioengineered Tissue No No -Bleeding Controlled with Pressure Pressure -Offloading No No -Treatment Response Procedure Procedure Tolerated Well Tolerated Well Pain Scale: 0-10 Numeric Is Patient Pain Free? No Yes Yes Wound debrided: Right great toe Wound Grade/Stage: Stage II Type of Debridement: Excisional debridement Anesthesia Used: 4% Lidocaine Solution Depth: Down to and including healthy tissue, in the subcutaneous layer Percentage of wound debrided: 100 Instrument Used: 3mm curette Tissue Removed: Slough and devitalized tissue Severity: Fat Layer Exposed Amount of bleeding with debridement: Mild Bleeding Controlled with: Pressure Patient tolerated procedure well - Additional Wound Wound debrided: Left dorsal foot Wound Grade/Stage: Stage III Type of Debridement: Excisional debridement Anesthesia Used: 4% Lidocaine Solution Depth: Down to and including healthy tissue, in the subcutaneous layer Percentage of wound debrided: 100 Instrument Used: 5mm curette Tissue Removed: Slough and devitalized tissue Severity: Fat Layer Exposed Amount of bleeding with debridement: Mild Bleeding Controlled with: Pressure Patient tolerated procedure: Patient tolerated procedure well Assessment/Plan Active Problems (Last Reviewed 09/29/18 @ 08:24 by Nya oTng) Chronic ulcer of right great toe with fat layer exposed (Chronic) Traumatic ulcer of left foot with fat layer exposed (Chronic) Peripheral arterial disease (Chronic) Ulcer of left foot (Acute) Assessment: Traumatic ulcer of the left dorsal foot and chronic right great toe ulcer in a patient with poorly controlled diabetes mellitus. Plan: Left lateral foot ulcer healed. Debridement of done as documented above. Procedure was well-tolerated. Continue Promogran with Adaptic over top to both. Change daily to twice daily. Adaptic and Optifoam over left lateral foot. Double layer Tubigrip for edema management. Offloading strongly recommended for right lower extremity. Advised to follow-up with her rotary shear worker helper for proper fitting. Increased protein intake recommended. Optimal blood sugar control also strongly recommended. She was advised to follow-up with her PCP to adjust her insulin. All her questions were answered and she was advised to call with any further questions or concerns. Follow-up in 1 week. This note was generated with [employer] software. It may contain incorrect words, spelling, and punctuation that were not noted in checking the note before signing.
[2018-10-22 09:41] VITALS: BP 150/74; PULSE 53; RESP 16; TEMP 36.4; BMI 29.6
--- NOTE | 2018-10-22 10:13 | PCM.WC.PN ---
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 Status: Chronic Current Visit: Yes Code(s): L97.512 - Non-pressure chronic ulcer of other part of right foot with fat layer exposed (2) Peripheral arterial disease Status: Chronic Current Visit: Yes Code(s): I73.9 - Peripheral vascular disease, unspecified (3) Traumatic ulcer of left foot with fat layer exposed Status: Chronic Current Visit: Yes Code(s): L97.522 - Non-pressure chronic ulcer of other part of left foot with fat layer exposed (4) Ulcer of left foot Status: Acute Current Visit: Yes Code(s): L97.529 - Non-pressure chronic ulcer of other part of left foot with unspecified severity Type of Wound Chief Complaint: Traumatic ulceration of left foot and chronic right great toe ulcer. History of Wound: Ms. Rothman is a 78-year-old who was referred to the wound center by her resawyer for continued wound care. She has a chronic right great toe ulcer which she has been managing conservatively at home for about 6 months. However, she presented to a resawyer due to left foot ulcer. She had a bowel drop on her foot about 3 weeks ago. She subsequently developed discoloration and swelling for which she was seen in the emergency room. Imaging done at that time was without any significant abnormality. Plan was to conservatively manage. However about a week ago. She noted an opening over the area with associated drainage/discharge. She was seen by her resawyer and vacuum therapy was recommended. She reports a history of diabetes which is not well controlled. Last A1c per patient was around 9. She is currently on insulin. Progress of Wound: Stable. No new concerns at this time. Left lateral foot satys healed. - Physical Exam Vital Signs Temp Pulse Resp BP 97.5 F L 53 L 16 150/74 H 10/22/18 09:41 10/22/18 09:41 10/22/18 09:41 10/22/18 09:41 General: Alert, Oriented x3, Cooperative, No apparent distress HEENT: Atraumatic, Normocephalic Oral: Moist Mucosa Neck: Supple Lungs: Normal air movement Abdomen: Non Tender Extremities: No cyanosis Skin: Ulcer/ Wound Wound Measurements and Assessment WC - Nurse 1 - General Ulcer Measurement Start: 10/01/18 08:53 Freq: Status: Active Protocol: Activity Type Activity Date Activity User E-Sign Co-Sign Detail Recorded Client Recorded Date Recorded By Document 10/22/18 09:41 [facility] [id number] 10/22/18 09:51 [facility] 10/22/18 09:41 Wound Center Nurse 1 [Ulcer Assessment] #3 R Grt Toe Plantar -Combined with other wound No -Current Size (cm) - Length 0.2 -Current Size (cm) - Width 0.2 -Current Size (cm) - Depth 0.2 -Total Square Cm 0.04 -Photo Taken No -Epithelialization None Present -Tunneling No -Undermining/Tunneling Yes -Undermining/Tunneling Starts (O' 12 clock) -Undermining/Tunneling Ends (O'clock) 12 -Maximum Distance (cm) 0.1 -Circular Undermining Yes -Exudate Amt Small -Exudate Type Serosanguineous -Wound Margin Flat & Intact -Granulation Amt None Present (0 %) -Slough/Fibrin Yes -Necrosis Amt Large (67-100%) -Necrotic Tissue Type Adherent Slough -Texture (Amy-wound Skin Appearance) Callus Scarring -Moisture (Amy-wound Skin Appearance Dry/Scaly ) -Color (Amy-wound Skin Appearance) Assessed -Temperature (Amy-wound Skin No Abnormality Appearance) (Pt Warm) -Tenderness on Palpation (Amy-wound No Skin Appearance) -Ulcer Cleansing Rinsed/ Irrigated with Saline -Foul Odor after Cleansing No -Anesthetic Used 5% Lidocaine Gel #2 L Foot Dorsal -Combined with other wound No -Current Size (cm) - Length 0.7 -Current Size (cm) - Width 0.5 -Current Size (cm) - Depth 0.1 -Total Square Cm 0.35 -Photo Taken No -Epithelialization Small 1-33% -Tunneling No -Undermining/Tunneling No -Circular Undermining No -Exudate Amt Small -Exudate Type Serosanguineous -Wound Margin Flat & Intact -Granulation Amt Small (1-33%) -Granulation Quality Red -Slough/Fibrin Yes -Necrosis Amt Medium (34-66%) -Necrotic Tissue Type Adherent Slough -Texture (Amy-wound Skin Appearance) Assessed Scarring -Moisture (Amy-wound Skin Appearance Assessed ) -Color (Amy-wound Skin Appearance) Assessed -Temperature (Amy-wound Skin No Abnormality Appearance) (Pt Warm) -Tenderness on Palpation (Amy-wound No Skin Appearance) -Ulcer Cleansing Rinsed/ Irrigated with Saline -Foul Odor after Cleansing No -Anesthetic Used 5% Lidocaine Gel [Edema Assessment] -Lower Limb Edema Present Yes -Right Calf (cm) 34.3 -Right Ankle (cm) 21.4 -Left Calf (cm) 33.5 -Left Ankle (cm) 21.1 WC - Nurse 2 - General Ulcer CM Notes Start: 10/01/18 08:53 Freq: Status: Active Protocol: Activity Type Activity Date Activity User E-Sign Co-Sign Detail Recorded Client Recorded Date Recorded By Document 10/22/18 10:05 MW [id number] 10/22/18 10:10 MW 10/22/18 10:05 Wound Center Nurse 2 [Procedure/Treatment] #3 R Grt Toe Plantar -Time 10:06 -Correct Patient Yes -Correct Side, Site, Position Yes -Correct Procedure Yes -Procedure Performed Yes -Type of Procedure Debridement -Clinical Debridement Subcutaneous -Post Debridement Size (cm) - Length 0.2 -Post Debridement Size (cm) - Width 0.1 -Post Debridement Size (cm) - Depth 0.1 -Total Square Cm 0.02 -Wound/Ulcer Outcome Not Healed -Ulcer Cleansing Rinsed/ Irrigated with Saline -Foul Odor after Cleansing No -Bioengineered Tissue No -Bleeding Controlled with Pressure -Offloading No -Treatment Response Procedure Tolerated Well #2 L Foot Dorsal -Time 10:06 -Correct Patient Yes -Correct Side, Site, Position Yes -Correct Procedure Yes -Procedure Performed Yes -Type of Procedure Debridement -Clinical Debridement Subcutaneous -Post Debridement Size (cm) - Length 0.8 -Post Debridement Size (cm) - Width 0.5 -Post Debridement Size (cm) - Depth 0.1 -Total Square Cm 0.40 -Wound/Ulcer Outcome Not Healed -Ulcer Cleansing Rinsed/ Irrigated with Saline -Foul Odor after Cleansing No -Bioengineered Tissue No -Bleeding Controlled with Pressure -Offloading No -Treatment Response Procedure Tolerated Well [See Physician Procedure note for Specifics] Pain Scale: 0-10 Numeric [Pain] -Is Patient Pain Free? Yes Musculoskeletal: No Muscle Wasting Neurological: Cranial nerves II-XII grossly intact Psych/Mental Status: Normal Affect Debridement Note Post-Debridement Measurements/Treatment WC - Nurse 2 - General Ulcer CM Notes Start: 10/01/18 08:53 Freq: Status: Active Protocol: Activity Type Activity Date Activity User E-Sign Co-Sign Detail Recorded Client Recorded Date Recorded By Document 10/01/18 09:11 MW [id number] 10/01/18 09:16 MW Document 10/08/18 10:04 MW [id number] 10/08/18 10:14 MW Document 10/15/18 11:43 MW [id number] 10/15/18 11:46 MW Document 10/22/18 10:05 MW [id number] 10/22/18 10:10 MW 10/01/18 10/08/18 10/15/18 09:11 10:04 11:43 Wound Center Nurse 2 #4 left lateral foot -Time 10:06 11:44 -Correct Patient Yes Yes -Correct Side, Site, Position Yes Yes -Correct Procedure Yes Yes -Procedure Performed Yes Yes -Type of Procedure Debridement Debridement -Clinical Debridement Subcutaneous Subcutaneous -Post Debridement Size (cm) - Length 0.7 0.9 -Post Debridement Size (cm) - Width 0.7 0.6 -Post Debridement Size (cm) - Depth 0.1 0.1 -Total Square Cm 0.49 0.54 -Wound/Ulcer Outcome Not Healed Not Healed -Ulcer Cleansing Rinsed/ Rinsed/ Irrigated with Irrigated with Saline Saline -Foul Odor after Cleansing No No -Bioengineered Tissue No No -Bleeding Controlled with Pressure Pressure -Offloading No No -Treatment Response Procedure Procedure Tolerated Well Tolerated Well #3 R Grt Toe Plantar -Time 09:13 10:05 11:44 -Correct Patient Yes Yes Yes -Correct Side, Site, Position Yes Yes Yes -Correct Procedure Yes Yes Yes -Procedure Performed Yes Yes Yes -Type of Procedure Debridement Debridement Debridement -Clinical Debridement Subcutaneous Subcutaneous Subcutaneous -Post Debridement Size (cm) - Length 0.3 0.2 0.1 -Post Debridement Size (cm) - Width 0.3 0.1 0.1 -Post Debridement Size (cm) - Depth 0.1 0.1 0.1 -Total Square Cm 0.09 0.02 0.01 -Wound/Ulcer Outcome Not Healed Not Healed Not Healed -Ulcer Cleansing Rinsed/ Rinsed/ Rinsed/ Irrigated with Irrigated with Irrigated with Saline Saline Saline -Foul Odor after Cleansing No No No -Bioengineered Tissue No No No -Bleeding Controlled with Pressure Pressure Pressure -Offloading No No No -Treatment Response Procedure Procedure Procedure Tolerated Well Tolerated Well Tolerated Well #2 L Foot Dorsal -Time 09:11 10:05 11:44 -Correct Patient Yes Yes Yes -Correct Side, Site, Position Yes Yes Yes -Correct Procedure Yes Yes Yes -Procedure Performed Yes Yes No -Type of Procedure Debridement Debridement -Clinical Debridement Subcutaneous Subcutaneous -Post Debridement Size (cm) - Length 1.2 0.9 0 -Post Debridement Size (cm) - Width 0.5 0.9 0 -Post Debridement Size (cm) - Depth 0.2 0.2 0 -Total Square Cm 0.60 0.81 0 -Wound/Ulcer Outcome Not Healed Not Healed Healed- Epithelialized -Ulcer Cleansing Rinsed/ Rinsed/ Irrigated with Irrigated with Saline Saline -Foul Odor after Cleansing No No -Bioengineered Tissue No No -Bleeding Controlled with Pressure Pressure -Offloading No No -Treatment Response Procedure Procedure Tolerated Well Tolerated Well Pain Scale: 0-10 Numeric Is Patient Pain Free? No Yes Yes 10/22/18 10:05 Wound Center Nurse 2 #4 left lateral foot -Time -Correct Patient -Correct Side, Site, Position -Correct Procedure -Procedure Performed -Type of Procedure -Clinical Debridement -Post Debridement Size (cm) - Length -Post Debridement Size (cm) - Width -Post Debridement Size (cm) - Depth -Total Square Cm -Wound/Ulcer Outcome -Ulcer Cleansing -Foul Odor after Cleansing -Bioengineered Tissue -Bleeding Controlled with -Offloading -Treatment Response #3 R Grt Toe Plantar -Time 10:06 -Correct Patient Yes -Correct Side, Site, Position Yes -Correct Procedure Yes -Procedure Performed Yes -Type of Procedure Debridement -Clinical Debridement Subcutaneous -Post Debridement Size (cm) - Length 0.2 -Post Debridement Size (cm) - Width 0.1 -Post Debridement Size (cm) - Depth 0.1 -Total Square Cm 0.02 -Wound/Ulcer Outcome Not Healed -Ulcer Cleansing Rinsed/ Irrigated with Saline -Foul Odor after Cleansing No -Bioengineered Tissue No -Bleeding Controlled with Pressure -Offloading No -Treatment Response Procedure Tolerated Well #2 L Foot Dorsal -Time 10:06 -Correct Patient Yes -Correct Side, Site, Position Yes -Correct Procedure Yes -Procedure Performed Yes -Type of Procedure Debridement -Clinical Debridement Subcutaneous -Post Debridement Size (cm) - Length 0.8 -Post Debridement Size (cm) - Width 0.5 -Post Debridement Size (cm) - Depth 0.1 -Total Square Cm 0.40 -Wound/Ulcer Outcome Not Healed -Ulcer Cleansing Rinsed/ Irrigated with Saline -Foul Odor after Cleansing No -Bioengineered Tissue No -Bleeding Controlled with Pressure -Offloading No -Treatment Response Procedure Tolerated Well Pain Scale: 0-10 Numeric Is Patient Pain Free? Yes Wound debrided: Left Dorsal foot Wound Grade/Stage: Stage III Type of Debridement: Excisional debridement Anesthesia Used: 4% Lidocaine Solution Depth: Down to and including healthy tissue, in the subcutaneous layer Percentage of wound debrided: 100 Instrument Used: 3mm curette Tissue Removed: Slough and devitalized tissue Severity: Fat Layer Exposed Amount of bleeding with debridement: Mild Bleeding Controlled with: Pressure Patient tolerated procedure well - Additional Wound Wound debrided: Right great toe Wound Grade/Stage: Stage II Type of Debridement: Excisional debridement Anesthesia Used: 4% Lidocaine Solution Depth: Down to and including healthy tissue, in the subcutaneous layer Percentage of wound debrided: 100 Instrument Used: 3mm curette Tissue Removed: Slough and devitalized tissue Severity: Fat Layer Exposed Amount of bleeding with debridement: Mild Bleeding Controlled with: Pressure Patient tolerated procedure: Patient tolerated procedure well Assessment/Plan Active Problems (Last Reviewed 10/19/18 @ 13:38 by Maggie Pretty) Chronic ulcer of right great toe with fat layer exposed (Chronic) Traumatic ulcer of left foot with fat layer exposed (Chronic) Peripheral arterial disease (Chronic) Ulcer of left foot (Acute) Assessment: Traumatic ulcer of the left dorsal foot and chronic right great toe ulcer in a patient with poorly controlled diabetes mellitus. Plan: Improving.Left lateral foot ulcer stays healed. Debridement of done as documented above. Procedure was well-tolerated. Continue Promogran with Adaptic over top to both. Change daily to twice daily. Continue barrier to left lateral foot due to bony deformity. Double layer Tubigrip for edema management. Offloading strongly recommended for right lower extremity. Advised to follow-up with her resawyer for proper fitting. Increased protein intake recommended. Optimal blood sugar control also strongly recommended. All her questions were answered and she was advised to call with any further questions or concerns. Follow-up in 1 week. This note was generated with [employer] software. It may contain incorrect words, spelling, and punctuation that were not noted in checking the note before signing.
--- NOTE | 2018-10-22 10:17 | PN.PCM_ITS ---
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 Status: Chronic Current Visit: Yes Code(s): L97.512 - Non-pressure chronic ulcer of other part of right foot with fat layer exposed (2) Peripheral arterial disease Status: Chronic Current Visit: Yes Code(s): I73.9 - Peripheral vascular disease, unspecified (3) Traumatic ulcer of left foot with fat layer exposed Status: Chronic Current Visit: Yes Code(s): L97.522 - Non-pressure chronic ulcer of other part of left foot with fat layer exposed (4) Ulcer of left foot Status: Acute Current Visit: Yes Code(s): L97.529 - Non-pressure chronic ulcer of other part of left foot with unspecified severity Type of Wound Chief Complaint: Traumatic ulceration of left foot and chronic right great toe ulcer. History of Wound: Ms. Rothman is a 78-year-old who was referred to the wound center by her direct care specialist for continued wound care. She has a chronic right great toe ulcer which she has been managing conservatively at home for about 6 months. However, she presented to a direct care specialist due to left foot ulcer. She had a bowel drop on her foot about 3 weeks ago. She subsequently developed discoloration and swelling for which she was seen in the emergency room. Imaging done at that time was without any significant abnormality. Plan was to conservatively manage. However about a week ago. She noted an opening over the area with associated drainage/discharge. She was seen by her direct care specialist and vacuum therapy was recommended. She reports a history of diabetes which is not well controlled. Last A1c per patient was around 9. She is currently on insulin. Progress of Wound: Stable. No new concerns at this time. Left lateral foot satys healed. - Physical Exam Vital Signs Temp Pulse Resp BP 97.5 F L 53 L 16 150/74 H 10/22/18 09:41 10/22/18 09:41 10/22/18 09:41 10/22/18 09:41 General: Alert, Oriented x3, Cooperative, No apparent distress HEENT: Atraumatic, Normocephalic Oral: Moist Mucosa Neck: Supple Lungs: Normal air movement Abdomen: Non Tender Extremities: No cyanosis Skin: Ulcer/ Wound Wound Measurements and Assessment WC - Nurse 1 - General Ulcer Measurement Start: 10/01/18 08:53 Freq: Status: Active Protocol: Activity Type Activity Date Activity User E-Sign Co-Sign Detail Recorded Client Recorded Date Recorded By Document 10/22/18 09:41 [facility] [id number] 10/22/18 09:51 [facility] 10/22/18 09:41 Wound Center Nurse 1 [Ulcer Assessment] #3 R Grt Toe Plantar -Combined with other wound No -Current Size (cm) - Length 0.2 -Current Size (cm) - Width 0.2 -Current Size (cm) - Depth 0.2 -Total Square Cm 0.04 -Photo Taken No -Epithelialization None Present -Tunneling No -Undermining/Tunneling Yes -Undermining/Tunneling Starts (O' 12 clock) -Undermining/Tunneling Ends (O'clock) 12 -Maximum Distance (cm) 0.1 -Circular Undermining Yes -Exudate Amt Small -Exudate Type Serosanguineous -Wound Margin Flat & Intact -Granulation Amt None Present (0 %) -Slough/Fibrin Yes -Necrosis Amt Large (67-100%) -Necrotic Tissue Type Adherent Slough -Texture (Amy-wound Skin Appearance) Callus Scarring -Moisture (Amy-wound Skin Appearance Dry/Scaly ) -Color (Amy-wound Skin Appearance) Assessed -Temperature (Amy-wound Skin No Abnormality Appearance) (Pt Warm) -Tenderness on Palpation (Amy-wound No Skin Appearance) -Ulcer Cleansing Rinsed/ Irrigated with Saline -Foul Odor after Cleansing No -Anesthetic Used 5% Lidocaine Gel #2 L Foot Dorsal -Combined with other wound No -Current Size (cm) - Length 0.7 -Current Size (cm) - Width 0.5 -Current Size (cm) - Depth 0.1 -Total Square Cm 0.35 -Photo Taken No -Epithelialization Small 1-33% -Tunneling No -Undermining/Tunneling No -Circular Undermining No -Exudate Amt Small -Exudate Type Serosanguineous -Wound Margin Flat & Intact -Granulation Amt Small (1-33%) -Granulation Quality Red -Slough/Fibrin Yes -Necrosis Amt Medium (34-66%) -Necrotic Tissue Type Adherent Slough -Texture (Amy-wound Skin Appearance) Assessed Scarring -Moisture (Amy-wound Skin Appearance Assessed ) -Color (Amy-wound Skin Appearance) Assessed -Temperature (Amy-wound Skin No Abnormality Appearance) (Pt Warm) -Tenderness on Palpation (Amy-wound No Skin Appearance) -Ulcer Cleansing Rinsed/ Irrigated with Saline -Foul Odor after Cleansing No -Anesthetic Used 5% Lidocaine Gel [Edema Assessment] -Lower Limb Edema Present Yes -Right Calf (cm) 34.3 -Right Ankle (cm) 21.4 -Left Calf (cm) 33.5 -Left Ankle (cm) 21.1 WC - Nurse 2 - General Ulcer CM Notes Start: 10/01/18 08:53 Freq: Status: Active Protocol: Activity Type Activity Date Activity User E-Sign Co-Sign Detail Recorded Client Recorded Date Recorded By Document 10/22/18 10:05 MW [id number] 10/22/18 10:10 MW 10/22/18 10:05 Wound Center Nurse 2 [Procedure/Treatment] #3 R Grt Toe Plantar -Time 10:06 -Correct Patient Yes -Correct Side, Site, Position Yes -Correct Procedure Yes -Procedure Performed Yes -Type of Procedure Debridement -Clinical Debridement Subcutaneous -Post Debridement Size (cm) - Length 0.2 -Post Debridement Size (cm) - Width 0.1 -Post Debridement Size (cm) - Depth 0.1 -Total Square Cm 0.02 -Wound/Ulcer Outcome Not Healed -Ulcer Cleansing Rinsed/ Irrigated with Saline -Foul Odor after Cleansing No -Bioengineered Tissue No -Bleeding Controlled with Pressure -Offloading No -Treatment Response Procedure Tolerated Well #2 L Foot Dorsal -Time 10:06 -Correct Patient Yes -Correct Side, Site, Position Yes -Correct Procedure Yes -Procedure Performed Yes -Type of Procedure Debridement -Clinical Debridement Subcutaneous -Post Debridement Size (cm) - Length 0.8 -Post Debridement Size (cm) - Width 0.5 -Post Debridement Size (cm) - Depth 0.1 -Total Square Cm 0.40 -Wound/Ulcer Outcome Not Healed -Ulcer Cleansing Rinsed/ Irrigated with Saline -Foul Odor after Cleansing No -Bioengineered Tissue No -Bleeding Controlled with Pressure -Offloading No -Treatment Response Procedure Tolerated Well [See Physician Procedure note for Specifics] Pain Scale: 0-10 Numeric [Pain] -Is Patient Pain Free? Yes Musculoskeletal: No Muscle Wasting Neurological: Cranial nerves II-XII grossly intact Psych/Mental Status: Normal Affect Debridement Note Post-Debridement Measurements/Treatment WC - Nurse 2 - General Ulcer CM Notes Start: 10/01/18 08:53 Freq: Status: Active Protocol: Activity Type Activity Date Activity User E-Sign Co-Sign Detail Recorded Client Recorded Date Recorded By Document 10/01/18 09:11 MW [id number] 10/01/18 09:16 MW Document 10/08/18 10:04 MW [id number] 10/08/18 10:14 MW Document 10/15/18 11:43 MW [id number] 10/15/18 11:46 MW Document 10/22/18 10:05 MW [id number] 10/22/18 10:10 MW 10/01/18 10/08/18 10/15/18 09:11 10:04 11:43 Wound Center Nurse 2 #4 left lateral foot -Time 10:06 11:44 -Correct Patient Yes Yes -Correct Side, Site, Position Yes Yes -Correct Procedure Yes Yes -Procedure Performed Yes Yes -Type of Procedure Debridement Debridement -Clinical Debridement Subcutaneous Subcutaneous -Post Debridement Size (cm) - Length 0.7 0.9 -Post Debridement Size (cm) - Width 0.7 0.6 -Post Debridement Size (cm) - Depth 0.1 0.1 -Total Square Cm 0.49 0.54 -Wound/Ulcer Outcome Not Healed Not Healed -Ulcer Cleansing Rinsed/ Rinsed/ Irrigated with Irrigated with Saline Saline -Foul Odor after Cleansing No No -Bioengineered Tissue No No -Bleeding Controlled with Pressure Pressure -Offloading No No -Treatment Response Procedure Procedure Tolerated Well Tolerated Well #3 R Grt Toe Plantar -Time 09:13 10:05 11:44 -Correct Patient Yes Yes Yes -Correct Side, Site, Position Yes Yes Yes -Correct Procedure Yes Yes Yes -Procedure Performed Yes Yes Yes -Type of Procedure Debridement Debridement Debridement -Clinical Debridement Subcutaneous Subcutaneous Subcutaneous -Post Debridement Size (cm) - Length 0.3 0.2 0.1 -Post Debridement Size (cm) - Width 0.3 0.1 0.1 -Post Debridement Size (cm) - Depth 0.1 0.1 0.1 -Total Square Cm 0.09 0.02 0.01 -Wound/Ulcer Outcome Not Healed Not Healed Not Healed -Ulcer Cleansing Rinsed/ Rinsed/ Rinsed/ Irrigated with Irrigated with Irrigated with Saline Saline Saline -Foul Odor after Cleansing No No No -Bioengineered Tissue No No No -Bleeding Controlled with Pressure Pressure Pressure -Offloading No No No -Treatment Response Procedure Procedure Procedure Tolerated Well Tolerated Well Tolerated Well #2 L Foot Dorsal -Time 09:11 10:05 11:44 -Correct Patient Yes Yes Yes -Correct Side, Site, Position Yes Yes Yes -Correct Procedure Yes Yes Yes -Procedure Performed Yes Yes No -Type of Procedure Debridement Debridement -Clinical Debridement Subcutaneous Subcutaneous -Post Debridement Size (cm) - Length 1.2 0.9 0 -Post Debridement Size (cm) - Width 0.5 0.9 0 -Post Debridement Size (cm) - Depth 0.2 0.2 0 -Total Square Cm 0.60 0.81 0 -Wound/Ulcer Outcome Not Healed Not Healed Healed- Epithelialized -Ulcer Cleansing Rinsed/ Rinsed/ Irrigated with Irrigated with Saline Saline -Foul Odor after Cleansing No No -Bioengineered Tissue No No -Bleeding Controlled with Pressure Pressure -Offloading No No -Treatment Response Procedure Procedure Tolerated Well Tolerated Well Pain Scale: 0-10 Numeric Is Patient Pain Free? No Yes Yes 10/22/18 10:05 Wound Center Nurse 2 #4 left lateral foot -Time -Correct Patient -Correct Side, Site, Position -Correct Procedure -Procedure Performed -Type of Procedure -Clinical Debridement -Post Debridement Size (cm) - Length -Post Debridement Size (cm) - Width -Post Debridement Size (cm) - Depth -Total Square Cm -Wound/Ulcer Outcome -Ulcer Cleansing -Foul Odor after Cleansing -Bioengineered Tissue -Bleeding Controlled with -Offloading -Treatment Response #3 R Grt Toe Plantar -Time 10:06 -Correct Patient Yes -Correct Side, Site, Position Yes -Correct Procedure Yes -Procedure Performed Yes -Type of Procedure Debridement -Clinical Debridement Subcutaneous -Post Debridement Size (cm) - Length 0.2 -Post Debridement Size (cm) - Width 0.1 -Post Debridement Size (cm) - Depth 0.1 -Total Square Cm 0.02 -Wound/Ulcer Outcome Not Healed -Ulcer Cleansing Rinsed/ Irrigated with Saline -Foul Odor after Cleansing No -Bioengineered Tissue No -Bleeding Controlled with Pressure -Offloading No -Treatment Response Procedure Tolerated Well #2 L Foot Dorsal -Time 10:06 -Correct Patient Yes -Correct Side, Site, Position Yes -Correct Procedure Yes -Procedure Performed Yes -Type of Procedure Debridement -Clinical Debridement Subcutaneous -Post Debridement Size (cm) - Length 0.8 -Post Debridement Size (cm) - Width 0.5 -Post Debridement Size (cm) - Depth 0.1 -Total Square Cm 0.40 -Wound/Ulcer Outcome Not Healed -Ulcer Cleansing Rinsed/ Irrigated with Saline -Foul Odor after Cleansing No -Bioengineered Tissue No -Bleeding Controlled with Pressure -Offloading No -Treatment Response Procedure Tolerated Well Pain Scale: 0-10 Numeric Is Patient Pain Free? Yes Wound debrided: Left Dorsal foot Wound Grade/Stage: Stage III Type of Debridement: Excisional debridement Anesthesia Used: 4% Lidocaine Solution Depth: Down to and including healthy tissue, in the subcutaneous layer Percentage of wound debrided: 100 Instrument Used: 3mm curette Tissue Removed: Slough and devitalized tissue Severity: Fat Layer Exposed Amount of bleeding with debridement: Mild Bleeding Controlled with: Pressure Patient tolerated procedure well - Additional Wound Wound debrided: Right great toe Wound Grade/Stage: Stage II Type of Debridement: Excisional debridement Anesthesia Used: 4% Lidocaine Solution Depth: Down to and including healthy tissue, in the subcutaneous layer Percentage of wound debrided: 100 Instrument Used: 3mm curette Tissue Removed: Slough and devitalized tissue Severity: Fat Layer Exposed Amount of bleeding with debridement: Mild Bleeding Controlled with: Pressure Patient tolerated procedure: Patient tolerated procedure well Assessment/Plan Active Problems (Last Reviewed 10/19/18 @ 13:38 by Maggie Pretty) Chronic ulcer of right great toe with fat layer exposed (Chronic) Traumatic ulcer of left foot with fat layer exposed (Chronic) Peripheral arterial disease (Chronic) Ulcer of left foot (Acute) Assessment: Traumatic ulcer of the left dorsal foot and chronic right great toe ulcer in a patient with poorly controlled diabetes mellitus. Plan: Improving.Left lateral foot ulcer stays healed. Debridement of done as documented above. Procedure was well-tolerated. Continue Promogran with Adaptic over top to both. Change daily to twice daily. Continue barrier to left lateral foot due to bony deformity. Double layer Tubigrip for edema management. Offloading strongly recommended for right lower extremity. Advised to follow-up with her direct care specialist for proper fitting. Increased protein intake recommended. Optimal blood sugar control also strongly recommended. All her questions were answered and she was advised to call with any further questions or concerns. Follow-up in 1 week. This note was generated with [employer] software. It may contain incorrect words, spelling, and punctuation that were not noted in checking the note before signing.
== END 2018-10-25 23:59 ==
LOC: WC 10:00
PROVIDERS: Family Provider Internal Medicine; PCP Internal Medicine; Visit Provider Internal Medicine
DX: E11.621 Type 2 diabetes mellitus with foot ulcer (principal); E11.65 Type 2 diabetes mellitus with hyperglycemia; E11.51 Type 2 diabetes mellitus with diabetic peripheral angiopathy without gangrene; L97.512 Non-pressure chronic ulcer of other part of right foot with fat layer exposed; L97.522 Non-pressure chronic ulcer of other part of left foot with fat layer exposed
CPT/HCPCS: 11042

== ENCOUNTER → 2018-10-26 10:01 | Outpatient (CLI) | payer MEDICARE, SELFPAY ==
[2018-10-26 10:01] VITALS: BMI 29.9
[2018-10-26 10:55] LABS: Prothrombin Time Fingerstick 19.9 SEC (11.9-14.4)
[2018-12-14 12:05] LABS: Prothrombin Time Fingerstick 27.9 SEC (11.9-14.4)
== END ==
PROVIDERS: Family Provider Internal Medicine; PCP Internal Medicine; Visit Provider Internal Medicine Cardiovascular Disease
DX: I48.0 Paroxysmal atrial fibrillation (principal); Z51.81 Encounter for therapeutic drug level monitoring; Z79.01 Long term (current) use of anticoagulants
CPT/HCPCS: 36416; 85610

== ENCOUNTER → 2018-11-02 07:36 | Outpatient (CLI) | payer MEDICARE, SELFPAY ==
[2018-10-22 14:45] VITALS: BMI 29.9
[2018-10-29 09:27] VITALS: BMI 29.9
[2018-11-02 10:34] LABS: International Normalized Ratio 1.8
[2018-11-02 10:51] LABS: AST(SGOT) 30 U/L (15-37); Alanine Aminotransfer ALT/SGPT 42 U/L (13-56); Albumin, Serum 3.6 g/dL (3.2-5.0); Alkaline Phosphatase 124 U/L (45-117); Bilirubin, Direct 0.13 mg/dL (0.00-0.30); Cholesterol 211 mg/dL (200); Globulin 3.7 g/dL (2.2-4.2); High Density Lipoprotein 67 mg/dL; Protein, Total 7.3 g/dL (6.4-8.2); Triglycerides 100 mg/dL; Very Low Density Lipoprotein 20 mg/dL (5-40)
[2018-11-02 10:58] LABS: PTHIN 196.1 pg/mL (18.4-80.1)
== END ==
PROVIDERS: Internal Medicine Cardiovascular Disease; Family Provider Internal Medicine; PCP Internal Medicine; Visit Provider Internal Medicine Nephrology
DX: N25.81 Secondary hyperparathyroidism of renal origin (principal); I48.0 Paroxysmal atrial fibrillation; Z51.81 Encounter for therapeutic drug level monitoring; Z79.01 Long term (current) use of anticoagulants
CPT/HCPCS: 36415; 80061; 80076; 83970; 85610

== ENCOUNTER → 2018-11-17 | Outpatient (CLI) | payer MEDICARE, SELFPAY ==
[2018-11-17 08:58] VITALS: BMI 30.6
[2018-11-17 11:31] LABS: Prothrombin Time Fingerstick 34.7 SEC (11.9-14.4)
== END | disposition home or self-care (01) ==
PROVIDERS: Family Provider Internal Medicine; PCP Internal Medicine; Visit Provider Internal Medicine Cardiovascular Disease
DX: I48.0 Paroxysmal atrial fibrillation (principal); Z79.01 Long term (current) use of anticoagulants; Z51.81 Encounter for therapeutic drug level monitoring
CPT/HCPCS: 36416; 85610

== ENCOUNTER 2018-11-19 08:00 | Outpatient (RCR) | payer MEDICARE, SELFPAY ==
[2018-10-26 01:08] VITALS: BP 150/74; PULSE 53; RESP 16; TEMP 36.4
[2018-10-26 10:01] VITALS: BMI 29.9
[2018-10-29 09:27] VITALS: BP 115/59; PULSE 49; RESP 18; TEMP 36.1; BMI 29.9
--- NOTE | 2018-10-29 12:44 | PCM.WC.PN ---
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 Status: Chronic Current Visit: Yes Code(s): L97.512 - Non-pressure chronic ulcer of other part of right foot with fat layer exposed (2) Diabetes mellitus type II, uncontrolled Status: Chronic Current Visit: Yes Code(s): E11.65 - Type 2 diabetes mellitus with hyperglycemia (3) Peripheral arterial disease Status: Chronic Current Visit: Yes Code(s): I73.9 - Peripheral vascular disease, unspecified (4) Traumatic ulcer of left foot with fat layer exposed Status: Chronic Current Visit: Yes Code(s): L97.522 - Non-pressure chronic ulcer of other part of left foot with fat layer exposed Type of Wound Chief Complaint: Traumatic ulceration of left foot and chronic right great toe ulcer. History of Wound: Ms. Rothman is a 78-year-old who was referred to the wound center by her regional company hazmat tanker driver for continued wound care. She has a chronic right great toe ulcer which she has been managing conservatively at home for about 6 months. However, she presented to a regional company hazmat tanker driver due to left foot ulcer. She had a bowel drop on her foot about 3 weeks ago. She subsequently developed discoloration and swelling for which she was seen in the emergency room. Imaging done at that time was without any significant abnormality. Plan was to conservatively manage. However about a week ago. She noted an opening over the area with associated drainage/discharge. She was seen by her regional company hazmat tanker driver and vacuum therapy was recommended. She reports a history of diabetes which is not well controlled. Last A1c per patient was around 9. She is currently on insulin. Progress of Wound: Stable. No new concerns at this time. - Physical Exam Vital Signs Temp Pulse Resp BP 97 F L 49 L 18 115/59 L 10/29/18 09:27 10/29/18 09:27 10/29/18 09:27 10/29/18 09:27 General: Alert, Oriented x3, Cooperative, No apparent distress HEENT: Atraumatic, Normocephalic Oral: Moist Mucosa Neck: Supple Lungs: Normal air movement Extremities: No cyanosis Skin: Ulcer/ Wound Wound Measurements and Assessment WC - Nurse 1 - General Ulcer Measurement Start: 10/29/18 09:27 Freq: Status: Active Protocol: Activity Type Activity Date Activity User E-Sign Co-Sign Detail Recorded Client Recorded Date Recorded By Document 10/29/18 09:27 FL [id number] 10/29/18 09:36 FL 10/29/18 09:27 Wound Center Nurse 1 [Ulcer Assessment] #3 R Grt Toe Plantar -Combined with other wound No -Current Size (cm) - Length 0.1 -Current Size (cm) - Width 0.1 -Current Size (cm) - Depth 0.2 -Total Square Cm 0.01 -Photo Taken No -Epithelialization None Present -Tunneling No -Undermining/Tunneling Yes -Undermining/Tunneling Starts (O' 8 clock) -Undermining/Tunneling Ends (O'clock) 2 -Maximum Distance (cm) 0.2 -Circular Undermining No -Exudate Amt Small -Exudate Type Serous -Wound Margin Flat & Intact -Granulation Amt Medium (34-66%) -Granulation Quality Eighty Four -Slough/Fibrin Yes -Necrosis Amt Small (1-33%) -Necrotic Tissue Type Adherent Slough -Texture (Amy-wound Skin Appearance) Callus Scarring -Moisture (Amy-wound Skin Appearance Dry/Scaly ) -Color (Amy-wound Skin Appearance) Assessed -Temperature (Amy-wound Skin No Abnormality Appearance) (Pt Warm) -Tenderness on Palpation (Amy-wound No Skin Appearance) -Ulcer Cleansing Rinsed/ Irrigated with Saline -Foul Odor after Cleansing No -Anesthetic Used 5% Lidocaine Gel #2 L Foot Dorsal -Combined with other wound No -Current Size (cm) - Length 0.6 -Current Size (cm) - Width 0.6 -Current Size (cm) - Depth 0.1 -Total Square Cm 0.36 -Photo Taken No -Epithelialization None Present -Tunneling No -Undermining/Tunneling No -Circular Undermining No -Exudate Amt Small -Exudate Type Serous -Wound Margin Flat & Intact -Granulation Amt Medium (34-66%) -Granulation Quality Red -Slough/Fibrin Yes -Necrosis Amt Medium (34-66%) -Necrotic Tissue Type Adherent Slough -Texture (Amy-wound Skin Appearance) Assessed Scarring -Moisture (Amy-wound Skin Appearance Assessed ) -Color (Amy-wound Skin Appearance) Assessed -Temperature (Amy-wound Skin No Abnormality Appearance) (Pt Warm) -Tenderness on Palpation (Amy-wound No Skin Appearance) -Ulcer Cleansing Rinsed/ Irrigated with Saline -Foul Odor after Cleansing No -Anesthetic Used 5% Lidocaine Gel [Edema Assessment] -Lower Limb Edema Present Yes -Right Calf (cm) 35 -Right Ankle (cm) 21.6 -Left Calf (cm) 34.5 -Left Ankle (cm) 20.6 WC - Nurse 2 - General Ulcer CM Notes Start: 10/29/18 09:27 Freq: Status: Active Protocol: Activity Type Activity Date Activity User E-Sign Co-Sign Detail Recorded Client Recorded Date Recorded By Document 10/29/18 09:53 MW [id number] 10/29/18 10:03 MW 10/29/18 09:53 Wound Center Nurse 2 [Procedure/Treatment] #3 R Grt Toe Plantar -Time 09:53 -Correct Patient Yes -Correct Side, Site, Position Yes -Correct Procedure Yes -Procedure Performed Yes -Type of Procedure Debridement -Clinical Debridement Subcutaneous -Post Debridement Size (cm) - Length 0.2 -Post Debridement Size (cm) - Width 0.2 -Post Debridement Size (cm) - Depth 0.1 -Total Square Cm 0.04 -Wound/Ulcer Outcome Not Healed -Bleeding Controlled with Pressure -Offloading No -Treatment Response Procedure Tolerated Well #2 L Foot Dorsal -Time 09:53 -Correct Patient Yes -Correct Side, Site, Position Yes -Correct Procedure Yes -Procedure Performed Yes -Type of Procedure Debridement -Clinical Debridement Subcutaneous -Post Debridement Size (cm) - Length 0.8 -Post Debridement Size (cm) - Width 0.5 -Post Debridement Size (cm) - Depth 0.1 -Total Square Cm 0.40 -Wound/Ulcer Outcome Not Healed -Ulcer Cleansing Rinsed/ Irrigated with Saline -Foul Odor after Cleansing No -Bioengineered Tissue No -Bleeding Controlled with Pressure -Offloading No -Treatment Response Procedure Tolerated Well [See Physician Procedure note for Specifics] Pain Scale: 0-10 Numeric [Pain] -Is Patient Pain Free? Yes Musculoskeletal: No Muscle Wasting Neurological: Cranial nerves II-XII grossly intact Psych/Mental Status: Normal Affect Debridement Note Post-Debridement Measurements/Treatment JAVED - Nurse 2 - General Ulcer CM Notes Start: 10/29/18 09:27 Freq: Status: Active Protocol: Activity Type Activity Date Activity User E-Sign Co-Sign Detail Recorded Client Recorded Date Recorded By Document 10/29/18 09:53 MW [id number] 10/29/18 10:03 MW 10/29/18 09:53 Wound Center Nurse 2 #3 R Grt Toe Plantar -Time 09:53 -Correct Patient Yes -Correct Side, Site, Position Yes -Correct Procedure Yes -Procedure Performed Yes -Type of Procedure Debridement -Clinical Debridement Subcutaneous -Post Debridement Size (cm) - Length 0.2 -Post Debridement Size (cm) - Width 0.2 -Post Debridement Size (cm) - Depth 0.1 -Total Square Cm 0.04 -Wound/Ulcer Outcome Not Healed -Bleeding Controlled with Pressure -Offloading No -Treatment Response Procedure Tolerated Well #2 L Foot Dorsal -Time 09:53 -Correct Patient Yes -Correct Side, Site, Position Yes -Correct Procedure Yes -Procedure Performed Yes -Type of Procedure Debridement -Clinical Debridement Subcutaneous -Post Debridement Size (cm) - Length 0.8 -Post Debridement Size (cm) - Width 0.5 -Post Debridement Size (cm) - Depth 0.1 -Total Square Cm 0.40 -Wound/Ulcer Outcome Not Healed -Ulcer Cleansing Rinsed/ Irrigated with Saline -Foul Odor after Cleansing No -Bioengineered Tissue No -Bleeding Controlled with Pressure -Offloading No -Treatment Response Procedure Tolerated Well Pain Scale: 0-10 Numeric Is Patient Pain Free? Yes Wound debrided: Left dorsal foot Wound Grade/Stage: Stage III Type of Debridement: Excisional debridement Anesthesia Used: 4% Lidocaine Solution Depth: Down to and including healthy tissue, in the subcutaneous layer Percentage of wound debrided: 100 Instrument Used: 3mm curette Tissue Removed: Slough and devitalized tissue Severity: Fat Layer Exposed Amount of bleeding with debridement: Mild Bleeding Controlled with: Pressure Patient tolerated procedure well - Additional Wound Wound debrided: Right great toe Wound Grade/Stage: Stage II Type of Debridement: Excisional debridement Anesthesia Used: 4% Lidocaine Solution Depth: Down to and including healthy tissue, in the subcutaneous layer Percentage of wound debrided: 100 Instrument Used: 3mm curette Tissue Removed: Slough and devitalized tissue Severity: Fat Layer Exposed Amount of bleeding with debridement: Mild Bleeding Controlled with: Pressure Patient tolerated procedure: Patient tolerated procedure well Assessment/Plan Active Problems (Last Reviewed 10/19/18 @ 13:38 by Maggie Pretty) Chronic ulcer of right great toe with fat layer exposed (Chronic) Traumatic ulcer of left foot with fat layer exposed (Chronic) Peripheral arterial disease (Chronic) Diabetes mellitus type II, uncontrolled (Chronic) Assessment: Traumatic ulcer of the left dorsal foot and chronic right great toe ulcer in a patient with poorly controlled diabetes mellitus. Plan: Stable. No new concerns at this time. Debridement of done as documented above. Procedure was well-tolerated. Continue Promogran with Adaptic over top to both. Change daily to twice daily. Continue barrier to left lateral foot due to bony deformity. Double layer Tubigrip for edema management. Offloading strongly recommended for right lower extremity. Advised to follow-up with her regional company hazmat tanker driver for proper fitting. Increased protein intake recommended. Optimal blood sugar control also strongly recommended. All her questions were answered and she was advised to call with any further questions or concerns. Follow-up in 1 week. This note was generated with [employer] dictation software. It may contain incorrect words, spelling, and punctuation that were not noted in checking the note before signing.
--- NOTE | 2018-10-29 12:47 | PN.PCM_ITS ---
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 Status: Chronic Current Visit: Yes Code(s): L97.512 - Non-pressure chronic ulcer of other part of right foot with fat layer exposed (2) Diabetes mellitus type II, uncontrolled Status: Chronic Current Visit: Yes Code(s): E11.65 - Type 2 diabetes mellitus with hyperglycemia (3) Peripheral arterial disease Status: Chronic Current Visit: Yes Code(s): I73.9 - Peripheral vascular disease, unspecified (4) Traumatic ulcer of left foot with fat layer exposed Status: Chronic Current Visit: Yes Code(s): L97.522 - Non-pressure chronic ulcer of other part of left foot with fat layer exposed Type of Wound Chief Complaint: Traumatic ulceration of left foot and chronic right great toe ulcer. History of Wound: Ms. Rothman is a 78-year-old who was referred to the wound center by her crab butcher for continued wound care. She has a chronic right great toe ulcer which she has been managing conservatively at home for about 6 months. However, she presented to a crab butcher due to left foot ulcer. She had a bowel drop on her foot about 3 weeks ago. She subsequently developed discolor ation and swelling for which she was seen in the emergency room. Imaging done at that time was without any significant abnormality. Plan was to conservatively manage. However about a week ago. She noted an opening over the area with associated drainage/discharge. She was seen by her crab butcher and vacuum therapy was recommended. She reports a history of diabetes which is not well controlled. Last A1c per patient was around 9. She is currently on insulin. Progress of Wound: Stable. No new concerns at this time. - Physical Exam Vital Signs Temp Pulse Resp BP 97 F L 49 L 18 115/59 L 10/29/18 09:27 10/29/18 09:27 10/29/18 09:27 10/29/18 09:27 General: Alert, Oriented x3, Cooperative, No apparent distress HEENT: Atraumatic, Normocephalic Oral: Moist Mucosa Neck: Supple Lungs: Normal air movement Extremities: No cyanosis Skin: Ulcer/ Wound Wound Measurements and Assessment WC - Nurse 1 - General Ulcer Measurement Start: 10/29/18 09:27 Freq: Status: Active Protocol: Activity Type Activity Date Activity User E-Sign Co-Sign Detail Recorded Client Recorded Date Recorded By Document 10/29/18 09:27 [place] [id number] 10/29/18 09:36 [place] 10/29/18 09:27 Wound Center Nurse 1 [Ulcer Assessment] #3 R Grt Toe Plantar -Combined with other wound No -Current Size (cm) - Length 0.1 -Current Size (cm) - Width 0.1 -Current Size (cm) - Depth 0.2 -Total Square Cm 0.01 -Photo Taken No -Epithelialization None Present -Tunneling No -Undermining/Tunneling Yes -Undermining/Tunneling Starts (O' 8 clock) -Undermining/Tunneling Ends (O'clock) 2 -Maximum Distance (cm) 0.2 -Circular Undermining No -Exudate Amt Small -Exudate Type Serous -Wound Margin Flat & Intact -Granulation Amt Medium (34-66%) -Granulation Quality [place] -Slough/Fibrin Yes -Necrosis Amt Small (1-33%) -Necrotic Tissue Type Adherent Slough -Texture (Amy-wound Skin Appearance) Callus Scarring -Moisture (Amy-wound Skin Appearance Dry/Scaly ) -Color (Amy-wound Skin Appearance) Assessed -Temperature (Amy-wound Skin No Abnormality Appearance) (Pt Warm) -Tenderness on Palpation (Amy-wound No Skin Appearance) -Ulcer Cleansing Rinsed/ Irrigated with Saline -Foul Odor after Cleansing No -Anesthetic Used 5% Lidocaine Gel #2 L Foot Dorsal -Combined with other wound No -Current Size (cm) - Length 0.6 -Current Size (cm) - Width 0.6 -Current Size (cm) - Depth 0.1 -Total Square Cm 0.36 -Photo Taken No -Epithelialization None Present -Tunneling No -Undermining/Tunneling No -Circular Undermining No -Exudate Amt Small -Exudate Type Serous -Wound Margin Flat & Intact -Granulation Amt Medium (34-66%) -Granulation Quality Red -Slough/Fibrin Yes -Necrosis Amt Medium (34-66%) -Necrotic Tissue Type Adherent Slough -Texture (Amy-wound Skin Appearance) Assessed Scarring -Moisture (Amy-wound Skin Appearance Assessed ) -Color (Amy-wound Skin Appearance) Assessed -Temperature (Amy-wound Skin No Abnormality Appearance) (Pt Warm) -Tenderness on Palpation (Amy-wound No Skin Appearance) -Ulcer Cleansing Rinsed/ Irrigated with Saline -Foul Odor after Cleansing No -Anesthetic Used 5% Lidocaine Gel [Edema Assessment] -Lower Limb Edema Present Yes -Right Calf (cm) 35 -Right Ankle (cm) 21.6 -Left Calf (cm) 34.5 -Left Ankle (cm) 20.6 WC - Nurse 2 - General Ulcer CM Notes Start: 10/29/18 09:27 Freq: Status: Active Protocol: Activity Type Activity Date Activity User E-Sign Co-Sign Detail Recorded Client Recorded Date Recorded By Document 10/29/18 09:53 MW [email or web address] 10/29/18 10:03 MW 10/29/18 09:53 Wound Center Nurse 2 [Procedure/Treatment] #3 R Grt Toe Plantar -Time 09:53 -Correct Patient Yes -Correct Side, Site, Position Yes -Correct Procedure Yes -Procedure Performed Yes -Type of Procedure Debridement -Clinical Debridement Subcutaneous -Post Debridement Size (cm) - Length 0.2 -Post Debridement Size (cm) - Width 0.2 -Post Debridement Size (cm) - Depth 0.1 -Total Square Cm 0.04 -Wound/Ulcer Outcome Not Healed -Bleeding Controlled with Pressure -Offloading No -Treatment Response Procedure Tolerated Well #2 L Foot Dorsal -Time 09:53 -Correct Patient Yes -Correct Side, Site, Position Yes -Correct Procedure Yes -Procedure Performed Yes -Type of Procedure Debridement -Clinical Debridement Subcutaneous -Post Debridement Size (cm) - Length 0.8 -Post Debridement Size (cm) - Width 0.5 -Post Debridement Size (cm) - Depth 0.1 -Total Square Cm 0.40 -Wound/Ulcer Outcome Not Healed -Ulcer Cleansing Rinsed/ Irrigated with Saline -Foul Odor after Cleansing No -Bioengineered Tissue No -Bleeding Controlled with Pressure -Offloading No -Treatment Response Procedure Tolerated Well [See Physician Procedure note for Specifics] Pain Scale: 0-10 Numeric [Pain] -Is Patient Pain Free? Yes Musculoskeletal: No Muscle Wasting Neurological: Cranial nerves II-XII grossly intact Psych/Mental Status: Normal Affect Debridement Note Post-Debridement Measurements/Treatment WC - Nurse 2 - General Ulcer CM Notes Start: 10/29/18 09:27 Freq: Status: Active Protocol: Activity Type Activity Date Activity User E-Sign Co-Sign Detail Recorded Client Recorded Date Recorded By Document 10/29/18 09:53 MW [id number] 10/29/18 10:03 MW 10/29/18 09:53 Wound Center Nurse 2 #3 R Grt Toe Plantar -Time 09:53 -Correct Patient Yes -Correct Side, Site, Position Yes -Correct Procedure Yes -Procedure Performed Yes -Type of Procedure Debridement -Clinical Debridement Subcutaneous -Post Debridement Size (cm) - Length 0.2 -Post Debridement Size (cm) - Width 0.2 -Post Debridement Size (cm) - Depth 0.1 -Total Square Cm 0.04 -Wound/Ulcer Outcome Not Healed -Bleeding Controlled with Pressure -Offloading No -Treatment Response Procedure Tolerated Well #2 L Foot Dorsal -Time 09:53 -Correct Patient Yes -Correct Side, Site, Position Yes -Correct Procedure Yes -Procedure Performed Yes -Type of Procedure Debridement -Clinical Debridement Subcutaneous -Post Debridement Size (cm) - Length 0.8 -Post Debridement Size (cm) - Width 0.5 -Post Debridement Size (cm) - Depth 0.1 -Total Square Cm 0.40 -Wound/Ulcer Outcome Not Healed -Ulcer Cleansing Rinsed/ Irrigated with Saline -Foul Odor after Cleansing No -Bioengineered Tissue No -Bleeding Controlled with Pressure -Offloading No -Treatment Response Procedure Tolerated Well Pain Scale: 0-10 Numeric Is Patient Pain Free? Yes Wound debrided: Left dorsal foot Wound Grade/Stage: Stage III Type of Debridement: Excisional debridement Anesthesia Used: 4% Lidocaine Solution Depth: Down to and including healthy tissue, in the subcutaneous layer Percentage of wound debrided: 100 Instrument Used: 3mm curette Tissue Removed: Slough and devitalized tissue Severity: Fat Layer Exposed Amount of bleeding with debridement: Mild Bleeding Controlled with: Pressure Patient tolerated procedure well - Additional Wound Wound debrided: Right great toe Wound Grade/Stage: Stage II Type of Debridement: Excisional debridement Anesthesia Used: 4% Lidocaine Solution Depth: Down to and including healthy tissue, in the subcutaneous layer Percentage of wound debrided: 100 Instrument Used: 3mm curette Tissue Removed: Slough and devitalized tissue Severity: Fat Layer Exposed Amount of bleeding with debridement: Mild Bleeding Controlled with: Pressure Patient tolerated procedure: Patient tolerated procedure well Assessment/Plan Active Problems (Last Reviewed 10/19/18 @ 13:38 by Maggie Pretty) Chronic ulcer of right great toe with fat layer exposed (Chronic) Traumatic ulcer of left foot with fat layer exposed (Chronic) Peripheral arterial disease (Chronic) Diabetes mellitus type II, uncontrolled (Chronic) Assessment: Traumatic ulcer of the left dorsal foot and chronic right great toe ulcer in a patient with poorly controlled diabetes mellitus. Plan: Stable. No new concerns at this time. Debridement of done as documented above. Procedure was well-tolerated. Continue Promogran with Adaptic over top to both. Change daily to twice daily. Continue barrier to left lateral foot due to bony deformity. Double layer Tubigrip for edema management. Offloading strongly recommended for right lower extremity. Advised to follow-up with her crab butcher for proper fitting. Increased protein intake recommended. Optimal blood sugar control also strongly recommended. All her questions were answered and she was advised to call with any further questions or concerns. Follow-up in 1 week. This note was generated with [employer] dictation software. It may contain incorrect words, spelling, and punctuation that were not noted in checking the note before signing.
[2018-11-05 09:03] VITALS: BP 125/56; PULSE 52; TEMP 36.1; BMI 29.9
--- NOTE | 2018-11-05 10:07 | PCM.WC.PN ---
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 Status: Chronic Current Visit: Yes Code(s): L97.522 - Non-pressure chronic ulcer of other part of left foot with fat layer exposed (2) Chronic ulcer of right great toe with fat layer exposed Status: Chronic Current Visit: Yes Code(s): L97.512 - Non-pressure chronic ulcer of other part of right foot with fat layer exposed (3) Diabetes mellitus type II, uncontrolled Status: Chronic Current Visit: Yes Code(s): E11.65 - Type 2 diabetes mellitus with hyperglycemia (4) Peripheral arterial disease Status: Chronic Current Visit: Yes Code(s): I73.9 - Peripheral vascular disease, unspecified Type of Wound Chief Complaint: Traumatic ulceration of left foot and chronic right great toe ulcer. History of Wound: Ms. Rothman is a 78-year-old who was referred to the wound center by her card room manager for continued wound care. She has a chronic right great toe ulcer which she has been managing conservatively at home for about 6 months. However, she presented to a card room manager due to left foot ulcer. She had a bowel drop on her foot about 3 weeks ago. She subsequently developed discoloration and swelling for which she was seen in the emergency room. Imaging done at that time was without any significant abnormality. Plan was to conservatively manage. However about a week ago. She noted an opening over the area with associated drainage/discharge. She was seen by her card room manager and vacuum therapy was recommended. She reports a history of diabetes which is not well controlled. Last A1c per patient was around 9. She is currently on insulin. Progress of Wound: Stable. No new concerns at this time. - Physical Exam Vital Signs Temp Pulse Resp BP 97.0 F L 52 L 18 125/56 H 11/05/18 09:03 11/05/18 09:03 10/29/18 09:27 11/05/18 09:03 General: Alert, Oriented x3, Cooperative, No apparent distress HEENT: Atraumatic, Normocephalic Oral: Moist Mucosa Neck: Supple Lungs: Normal air movement Abdomen: Non Tender Extremities: No edema Skin: Ulcer/ Wound Wound Measurements and Assessment WC - Nurse 1 - General Ulcer Measurement Start: 10/29/18 09:27 Freq: Status: Active Protocol: Activity Type Activity Date Activity User E-Sign Co-Sign Detail Recorded Client Recorded Date Recorded By Document 11/05/18 09:03 [place] [id number] 11/05/18 09:15 [place] 11/05/18 09:03 Wound Center Nurse 1 [Ulcer Assessment] #3 R Grt Toe Plantar -Combined with other wound No -Current Size (cm) - Length 0.1 -Current Size (cm) - Width 0.1 -Current Size (cm) - Depth 0.1 -Total Square Cm 0.01 -Photo Taken No -Epithelialization Large 67-100% -Tunneling No -Undermining/Tunneling No -Circular Undermining No -Exudate Amt None Present -Wound Margin Flat & Intact -Necrosis Amt Large (67-100%) -Necrotic Tissue Type Eschar -Texture (Amy-wound Skin Appearance) Assessed -Moisture (Amy-wound Skin Appearance Assessed ) -Color (Amy-wound Skin Appearance) Assessed -Temperature (Amy-wound Skin No Abnormality Appearance) (Pt Warm) -Tenderness on Palpation (Amy-wound No Skin Appearance) -Ulcer Cleansing Wound Cleanser -Foul Odor after Cleansing No -Anesthetic Used 4% Lidocaine Solution #2 L Foot Dorsal -Combined with other wound No -Current Size (cm) - Length 0.9 -Current Size (cm) - Width 0.6 -Current Size (cm) - Depth 0.2 -Total Square Cm 0.54 -Photo Taken No -Tunneling No -Undermining/Tunneling No -Circular Undermining No -Exudate Amt Small -Exudate Type Serosanguineous -Wound Margin Flat & Intact -Granulation Amt Small (1-33%) -Granulation Quality [place] -Necrosis Amt Large (67-100%) -Necrotic Tissue Type Adherent Slough -Texture (Amy-wound Skin Appearance) Assessed -Moisture (Amy-wound Skin Appearance Assessed ) Maceration -Color (Amy-wound Skin Appearance) Assessed -Temperature (Amy-wound Skin No Abnormality Appearance) (Pt Warm) -Tenderness on Palpation (Amy-wound No Skin Appearance) -Ulcer Cleansing Wound Cleanser -Foul Odor after Cleansing No -Anesthetic Used 4% Lidocaine Solution [Edema Assessment] -Right Calf (cm) 32 -Right Ankle (cm) 22 -Left Calf (cm) 33 -Left Ankle (cm) 21 WC - Nurse 2 - General Ulcer CM Notes Start: 10/29/18 09:27 Freq: Status: Active Protocol: Activity Type Activity Date Activity User E-Sign Co-Sign Detail Recorded Client Recorded Date Recorded By Document 11/05/18 09:34 MW [id number] 11/05/18 09:38 MW 11/05/18 09:34 Wound Center Nurse 2 [Procedure/Treatment] #3 R Grt Toe Plantar -Time 09:35 -Correct Patient Yes -Correct Side, Site, Position Yes -Correct Procedure Yes -Procedure Performed No -Post Debridement Size (cm) - Length 0.1 -Post Debridement Size (cm) - Width 0.1 -Post Debridement Size (cm) - Depth 0.1 -Total Square Cm 0.01 -Wound/Ulcer Outcome Not Healed -Ulcer Cleansing Rinsed/ Irrigated with Saline -Foul Odor after Cleansing No -Bioengineered Tissue No -Bleeding Controlled with Pressure -Offloading No -Treatment Response Procedure Tolerated Well #2 L Foot Dorsal -Time 09:35 -Correct Patient Yes -Correct Side, Site, Position Yes -Correct Procedure Yes -Procedure Performed Yes -Type of Procedure Debridement -Clinical Debridement Subcutaneous -Post Debridement Size (cm) - Length 0.6 -Post Debridement Size (cm) - Width 0.4 -Post Debridement Size (cm) - Depth 0.1 -Total Square Cm 0.24 -Wound/Ulcer Outcome Not Healed -Ulcer Cleansing Rinsed/ Irrigated with Saline -Foul Odor after Cleansing No -Bioengineered Tissue No -Bleeding Controlled with Pressure -Offloading No -Treatment Response Procedure Tolerated Well [See Physician Procedure note for Specifics] Pain Scale: 0-10 Numeric [Pain] -Is Patient Pain Free? Yes Musculoskeletal: No Muscle Wasting Neurological: Cranial nerves II-XII grossly intact Psych/Mental Status: Normal Affect Debridement Note Post-Debridement Measurements/Treatment WC - Nurse 2 - General Ulcer CM Notes Start: 10/29/18 09:27 Freq: Status: Active Protocol: Activity Type Activity Date Activity User E-Sign Co-Sign Detail Recorded Client Recorded Date Recorded By Document 10/29/18 09:53 MW [id number] 10/29/18 10:03 MW Document 11/05/18 09:34 MW [id number] 11/05/18 09:38 MW 10/29/18 11/05/18 09:53 09:34 Wound Center Nurse 2 #3 R Grt Toe Plantar -Time 09:53 09:35 -Correct Patient Yes Yes -Correct Side, Site, Position Yes Yes -Correct Procedure Yes Yes -Procedure Performed Yes No -Type of Procedure Debridement -Clinical Debridement Subcutaneous -Post Debridement Size (cm) - Length 0.2 0.1 -Post Debridement Size (cm) - Width 0.2 0.1 -Post Debridement Size (cm) - Depth 0.1 0.1 -Total Square Cm 0.04 0.01 -Wound/Ulcer Outcome Not Healed Not Healed -Ulcer Cleansing Rinsed/ Irrigated with Saline -Foul Odor after Cleansing No -Bioengineered Tissue No -Bleeding Controlled with Pressure Pressure -Offloading No No -Treatment Response Procedure Procedure Tolerated Well Tolerated Well #2 L Foot Dorsal -Time 09:53 09:35 -Correct Patient Yes Yes -Correct Side, Site, Position Yes Yes -Correct Procedure Yes Yes -Procedure Performed Yes Yes -Type of Procedure Debridement Debridement -Clinical Debridement Subcutaneous Subcutaneous -Post Debridement Size (cm) - Length 0.8 0.6 -Post Debridement Size (cm) - Width 0.5 0.4 -Post Debridement Size (cm) - Depth 0.1 0.1 -Total Square Cm 0.40 0.24 -Wound/Ulcer Outcome Not Healed Not Healed -Ulcer Cleansing Rinsed/ Rinsed/ Irrigated with Irrigated with Saline Saline -Foul Odor after Cleansing No No -Bioengineered Tissue No No -Bleeding Controlled with Pressure Pressure -Offloading No No -Treatment Response Procedure Procedure Tolerated Well Tolerated Well Pain Scale: 0-10 Numeric Is Patient Pain Free? Yes Yes Wound debrided: Left foot Wound Grade/Stage: Stage III Type of Debridement: Excisional debridement Anesthesia Used: 4% Lidocaine Solution Depth: Down to and including healthy tissue, in the subcutaneous layer Percentage of wound debrided: 100 Instrument Used: 3mm curette Tissue Removed: Slough and devitalized tissue Severity: Fat Layer Exposed Amount of bleeding with debridement: Mild Bleeding Controlled with: Pressure Patient tolerated procedure well Assessment/Plan Active Problems (Last Reviewed 10/19/18 @ 13:38 by Maggie Pretty) Chronic ulcer of right great toe with fat layer exposed (Chronic) Traumatic ulcer of left foot with fat layer exposed (Chronic) Peripheral arterial disease (Chronic) Diabetes mellitus type II, uncontrolled (Chronic) Assessment: Traumatic ulcer of the left dorsal foot and chronic right great toe ulcer in a patient with poorly controlled diabetes mellitus. Plan: Improving. Very minimal area of the right great toe left. No new concerns at this time. Debridement of done as documented above. Procedure was well-tolerated. Continue Promogran with Adaptic over top to both. Change daily to twice daily. Continue barrier to left lateral foot due to bony deformity. Double layer Tubigrip for edema management. Offloading strongly recommended for right lower extremity. Advised to follow-up with her card room manager for proper fitting. Increased protein intake recommended. Optimal blood sugar control also strongly recommended. All her questions were answered and she was advised to call with any further questions or concerns. Follow-up in 1 week. This note was generated with [employer] dictation software. It may contain incorrect words, spelling, and punctuation that were not noted in checking the note before signing.
--- NOTE | 2018-11-05 10:10 | PN.PCM_ITS ---
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 Status: Chronic Current Visit: Yes Code(s): L97.522 - Non-pressure chronic ulcer of other part of left foot with fat layer exposed (2) Chronic ulcer of right great toe with fat layer exposed Status: Chronic Current Visit: Yes Code(s): L97.512 - Non-pressure chronic ulcer of other part of right foot with fat layer exposed (3) Diabetes mellitus type II, uncontrolled Status: Chronic Current Visit: Yes Code(s): E11.65 - Type 2 diabetes mellitus with hyperglycemia (4) Peripheral arterial disease Status: Chronic Current Visit: Yes Code(s): I73.9 - Peripheral vascular disease, unspecified Type of Wound Chief Complaint: Traumatic ulceration of left foot and chronic right great toe ulcer. History of Wound: Ms. Rothman is a 78-year-old who was referred to the wound center by her food or baggage handling rampman for continued wound care. She has a chronic right great toe ulcer which she has been managing conservatively at home for about 6 months. However, she presented to a food or baggage handling rampman due to left foot ulcer. She had a bowel drop on her foot about 3 weeks ago. She subsequently developed discolor ation and swelling for which she was seen in the emergency room. Imaging done at that time was without any significant abnormality. Plan was to conservatively manage. However about a week ago. She noted an opening over the area with associated drainage/discharge. She was seen by her food or baggage handling rampman and vacuum therapy was recommended. She reports a history of diabetes which is not well controlled. Last A1c per patient was around 9. She is currently on insulin. Progress of Wound: Stable. No new concerns at this time. - Physical Exam Vital Signs Temp Pulse Resp BP 97.0 F L 52 L 18 125/56 H 11/05/18 09:03 11/05/18 09:03 10/29/18 09:27 11/05/18 09:03 General: Alert, Oriented x3, Cooperative, No apparent distress HEENT: Atraumatic, Normocephalic Oral: Moist Mucosa Neck: Supple Lungs: Normal air movement Abdomen: Non Tender Extremities: No edema Skin: Ulcer/ Wound Wound Measurements and Assessment WC - Nurse 1 - General Ulcer Measurement Start: 10/29/18 09:27 Freq: Status: Active Protocol: Activity Type Activity Date Activity User E-Sign Co-Sign Detail Recorded Client Recorded Date Recorded By Document 11/05/18 09:03 NV [id number] 11/05/18 09:15 NV 11/05/18 09:03 Wound Center Nurse 1 [Ulcer Assessment] #3 R Grt Toe Plantar -Combined with other wound No -Current Size (cm) - Length 0.1 -Current Size (cm) - Width 0.1 -Current Size (cm) - Depth 0.1 -Total Square Cm 0.01 -Photo Taken No -Epithelialization Large 67-100% -Tunneling No -Undermining/Tunneling No -Circular Undermining No -Exudate Amt None Present -Wound Margin Flat & Intact -Necrosis Amt Large (67-100%) -Necrotic Tissue Type Eschar -Texture (Amy-wound Skin Appearance) Assessed -Moisture (Amy-wound Skin Appearance Assessed ) -Color (Amy-wound Skin Appearance) Assessed -Temperature (Amy-wound Skin No Abnormality Appearance) (Pt Warm) -Tenderness on Palpation (Amy-wound No Skin Appearance) -Ulcer Cleansing Wound Cleanser -Foul Odor after Cleansing No -Anesthetic Used 4% Lidocaine Solution #2 L Foot Dorsal -Combined with other wound No -Current Size (cm) - Length 0.9 -Current Size (cm) - Width 0.6 -Current Size (cm) - Depth 0.2 -Total Square Cm 0.54 -Photo Taken No -Tunneling No -Undermining/Tunneling No -Circular Undermining No -Exudate Amt Small -Exudate Type Serosanguineous -Wound Margin Flat & Intact -Granulation Amt Small (1-33%) -Granulation Quality Pale [place] -Necrosis Amt Large (67-100%) -Necrotic Tissue Type Adherent Slough -Texture (Amy-wound Skin Appearance) Assessed -Moisture (Amy-wound Skin Appearance Assessed ) Maceration -Color (Amy-wound Skin Appearance) Assessed -Temperature (Amy-wound Skin No Abnormality Appearance) (Pt Warm) -Tenderness on Palpation (Amy-wound No Skin Appearance) -Ulcer Cleansing Wound Cleanser -Foul Odor after Cleansing No -Anesthetic Used 4% Lidocaine Solution [Edema Assessment] -Right Calf (cm) 32 -Right Ankle (cm) 22 -Left Calf (cm) 33 -Left Ankle (cm) 21 WC - Nurse 2 - General Ulcer CM Notes Start: 10/29/18 09:27 Freq: Status: Active Protocol: Activity Type Activity Date Activity User E-Sign Co-Sign Detail Recorded Client Recorded Date Recorded By Document 11/05/18 09:34 MW [id number] 11/05/18 09:38 MW 11/05/18 09:34 Wound Center Nurse 2 [Procedure/Treatment] #3 R Grt Toe Plantar -Time 09:35 -Correct Patient Yes -Correct Side, Site, Position Yes -Correct Procedure Yes -Procedure Performed No -Post Debridement Size (cm) - Length 0.1 -Post Debridement Size (cm) - Width 0.1 -Post Debridement Size (cm) - Depth 0.1 -Total Square Cm 0.01 -Wound/Ulcer Outcome Not Healed -Ulcer Cleansing Rinsed/ Irrigated with Saline -Foul Odor after Cleansing No -Bioengineered Tissue No -Bleeding Controlled with Pressure -Offloading No -Treatment Response Procedure Tolerated Well #2 L Foot Dorsal -Time 09:35 -Correct Patient Yes -Correct Side, Site, Position Yes -Correct Procedure Yes -Procedure Performed Yes -Type of Procedure Debridement -Clinical Debridement Subcutaneous -Post Debridement Size (cm) - Length 0.6 -Post Debridement Size (cm) - Width 0.4 -Post Debridement Size (cm) - Depth 0.1 -Total Square Cm 0.24 -Wound/Ulcer Outcome Not Healed -Ulcer Cleansing Rinsed/ Irrigated with Saline -Foul Odor after Cleansing No -Bioengineered Tissue No -Bleeding Controlled with Pressure -Offloading No -Treatment Response Procedure Tolerated Well [See Physician Procedure note for Specifics] Pain Scale: 0-10 Numeric [Pain] -Is Patient Pain Free? Yes Musculoskeletal: No Muscle Wasting Neurological: Cranial nerves II-XII grossly intact Psych/Mental Status: Normal Affect Debridement Note Post-Debridement Measurements/Treatment WC - Nurse 2 - General Ulcer CM Notes Start: 10/29/18 09:27 Freq: Status: Active Protocol: Activity Type Activity Date Activity User E-Sign Co-Sign Detail Recorded Client Recorded Date Recorded By Document 10/29/18 09:53 MW [id number] 10/29/18 10:03 MW Document 11/05/18 09:34 MW [id number] 11/05/18 09:38 MW 10/29/18 11/05/18 09:53 09:34 Wound Center Nurse 2 #3 R Grt Toe Plantar -Time 09:53 09:35 -Correct Patient Yes Yes -Correct Side, Site, Position Yes Yes -Correct Procedure Yes Yes -Procedure Performed Yes No -Type of Procedure Debridement -Clinical Debridement Subcutaneous -Post Debridement Size (cm) - Length 0.2 0.1 -Post Debridement Size (cm) - Width 0.2 0.1 -Post Debridement Size (cm) - Depth 0.1 0.1 -Total Square Cm 0.04 0.01 -Wound/Ulcer Outcome Not Healed Not Healed -Ulcer Cleansing Rinsed/ Irrigated with Saline -Foul Odor after Cleansing No -Bioengineered Tissue No -Bleeding Controlled with Pressure Pressure -Offloading No No -Treatment Response Procedure Procedure Tolerated Well Tolerated Well #2 L Foot Dorsal -Time 09:53 09:35 -Correct Patient Yes Yes -Correct Side, Site, Position Yes Yes -Correct Procedure Yes Yes -Procedure Performed Yes Yes -Type of Procedure Debridement Debridement -Clinical Debridement Subcutaneous Subcutaneous -Post Debridement Size (cm) - Length 0.8 0.6 -Post Debridement Size (cm) - Width 0.5 0.4 -Post Debridement Size (cm) - Depth 0.1 0.1 -Total Square Cm 0.40 0.24 -Wound/Ulcer Outcome Not Healed Not Healed -Ulcer Cleansing Rinsed/ Rinsed/ Irrigated with Irrigated with Saline Saline -Foul Odor after Cleansing No No -Bioengineered Tissue No No -Bleeding Controlled with Pressure Pressure -Offloading No No -Treatment Response Procedure Procedure Tolerated Well Tolerated Well Pain Scale: 0-10 Numeric Is Patient Pain Free? Yes Yes Wound debrided: Left foot Wound Grade/Stage: Stage III Type of Debridement: Excisional debridement Anesthesia Used: 4% Lidocaine Solution Depth: Down to and including healthy tissue, in the subcutaneous layer Percentage of wound debrided: 100 Instrument Used: 3mm curette Tissue Removed: Slough and devitalized tissue Severity: Fat Layer Exposed Amount of bleeding with debridement: Mild Bleeding Controlled with: Pressure Patient tolerated procedure well Assessment/Plan Active Problems (Last Reviewed 10/19/18 @ 13:38 by Maggie Pretty) Chronic ulcer of right great toe with fat layer exposed (Chronic) Traumatic ulcer of left foot with fat layer exposed (Chronic) Peripheral arterial disease (Chronic) Diabetes mellitus type II, uncontrolled (Chronic) Assessment: Traumatic ulcer of the left dorsal foot and chronic right great toe ulcer in a patient with poorly controlled diabetes mellitus. Plan: Improving. Very minimal area of the right great toe left. No new concerns at this time. Debridement of done as documented above. Procedure was well- tolerated. Continue Promogran with Adaptic over top to both. Change daily to twice daily. Continue barrier to left lateral foot due to bony deformity. Double layer Tubigrip for edema management. Offloading strongly recommended for right lower extremity. Advised to follow-up with her food or baggage handling rampman for proper fitting. Increased protein intake recommended. Optimal blood sugar control also strongly recommended. All her questions were answered and she was advised to call with any further questions or concerns. Follow-up in 1 week. This note was generated with [employer] dictation software. It may contain incorrect words, spelling, and punctuation that were not noted in checking the note before signing.
[2018-11-12 09:18] VITALS: BP 130/60; PULSE 51; RESP 16; TEMP 35.7; BMI 29.9
--- NOTE | 2018-11-12 13:23 | PCM.WC.PN ---
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 Status: Chronic Current Visit: Yes Code(s): L97.522 - Non-pressure chronic ulcer of other part of left foot with fat layer exposed (2) Chronic ulcer of right great toe with fat layer exposed Status: Chronic Current Visit: Yes Code(s): L97.512 - Non-pressure chronic ulcer of other part of right foot with fat layer exposed (3) Diabetes mellitus type II, uncontrolled Status: Chronic Current Visit: Yes Code(s): E11.65 - Type 2 diabetes mellitus with hyperglycemia (4) Peripheral arterial disease Status: Chronic Current Visit: Yes Code(s): I73.9 - Peripheral vascular disease, unspecified Type of Wound Chief Complaint: Traumatic ulceration of left foot and chronic right great toe ulcer. History of Wound: Ms. Rothman is a 78-year-old who was referred to the wound center by her waste oil pumper for continued wound care. She has a chronic right great toe ulcer which she has been managing conservatively at home for about 6 months. However, she presented to a waste oil pumper due to left foot ulcer. She had a bowel drop on her foot about 3 weeks ago. She subsequently developed discoloration and swelling for which she was seen in the emergency room. Imaging done at that time was without any significant abnormality. Plan was to conservatively manage. However about a week ago. She noted an opening over the area with associated drainage/discharge. She was seen by her waste oil pumper and vacuum therapy was recommended. She reports a history of diabetes which is not well controlled. Last A1c per patient was around 9. She is currently on insulin. Progress of Wound: Stable. No new concerns at this time. - Physical Exam Vital Signs Temp Pulse Resp BP 96.2 F L 51 L 16 130/60 H 11/12/18 09:18 11/12/18 09:18 11/12/18 09:18 11/12/18 09:18 General: Alert, Oriented x3, Cooperative, No apparent distress HEENT: Atraumatic, Normocephalic Oral: Moist Mucosa Neck: Supple Skin: Ulcer/ Wound Wound Measurements and Assessment WC - Nurse 1 - General Ulcer Measurement Start: 10/29/18 09:27 Freq: Status: Active Protocol: Activity Type Activity Date Activity User E-Sign Co-Sign Detail Recorded Client Recorded Date Recorded By Document 11/12/18 09:18 MW [id number] 11/12/18 09:24 MW 11/12/18 09:18 Wound Center Nurse 1 [Ulcer Assessment] #3 R Grt Toe Plantar -Current Size (cm) - Length 0.1 -Current Size (cm) - Width 0.1 -Current Size (cm) - Depth 0.1 -Total Square Cm 0.01 #2 L Foot Dorsal -Combined with other wound No -Current Size (cm) - Length 0.7 -Current Size (cm) - Width 0.4 -Current Size (cm) - Depth 0.1 -Total Square Cm 0.28 -Photo Taken No -Tunneling No -Undermining/Tunneling No -Circular Undermining No -Exudate Amt Small -Exudate Type Serosanguineous -Wound Margin Flat & Intact -Granulation Amt Small (1-33%) -Granulation Quality Pale [place] -Necrosis Amt Large (67-100%) -Necrotic Tissue Type Adherent Slough -Texture (Amy-wound Skin Appearance) Assessed -Moisture (Amy-wound Skin Appearance Assessed ) Maceration -Color (Amy-wound Skin Appearance) Assessed -Temperature (Amy-wound Skin No Abnormality Appearance) (Pt Warm) -Tenderness on Palpation (Amy-wound No Skin Appearance) -Ulcer Cleansing Rinsed/ Irrigated with Saline -Foul Odor after Cleansing No -Anesthetic Used 4% Lidocaine Solution [Edema Assessment] -Lower Limb Edema Present NA - Nurse 2 - General Ulcer CM Notes Start: 10/29/18 09:27 Freq: Status: Active Protocol: Activity Type Activity Date Activity User E-Sign Co-Sign Detail Recorded Client Recorded Date Recorded By Document 11/12/18 09:30 MW [id number] 11/12/18 09:36 MW 11/12/18 09:30 Wound Center Nurse 2 [Procedure/Treatment] #3 R Grt Toe Plantar -Time 09:32 -Correct Patient Yes -Correct Side, Site, Position Yes -Correct Procedure Yes -Procedure Performed Yes -Type of Procedure Debridement -Clinical Debridement Selective -Post Debridement Size (cm) - Length 0.1 -Post Debridement Size (cm) - Width 0.1 -Post Debridement Size (cm) - Depth 0.1 -Total Square Cm 0.01 -Wound/Ulcer Outcome Not Healed -Ulcer Cleansing Rinsed/ Irrigated with Saline -Foul Odor after Cleansing No -Bioengineered Tissue No -Bleeding Controlled with NA -Offloading No -Treatment Response Procedure Tolerated Well #2 L Foot Dorsal -Time 09:31 -Correct Patient Yes -Correct Side, Site, Position Yes -Correct Procedure Yes -Procedure Performed Yes -Type of Procedure Debridement -Clinical Debridement Subcutaneous -Post Debridement Size (cm) - Length 0.6 -Post Debridement Size (cm) - Width 0.5 -Post Debridement Size (cm) - Depth 0.1 -Total Square Cm 0.30 -Wound/Ulcer Outcome Not Healed -Ulcer Cleansing Rinsed/ Irrigated with Saline -Foul Odor after Cleansing No -Bioengineered Tissue No -Bleeding Controlled with Pressure -Offloading No -Treatment Response Procedure Tolerated Well [See Physician Procedure note for Specifics] Pain Scale: 0-10 Numeric [Pain] -Is Patient Pain Free? Yes Musculoskeletal: No Muscle Wasting Neurological: Cranial nerves II-XII grossly intact Psych/Mental Status: Normal Affect Debridement Note Post-Debridement Measurements/Treatment WC - Nurse 2 - General Ulcer CM Notes Start: 10/29/18 09:27 Freq: Status: Active Protocol: Activity Type Activity Date Activity User E-Sign Co-Sign Detail Recorded Client Recorded Date Recorded By Document 10/29/18 09:53 MW [id number] 10/29/18 10:03 MW Document 11/05/18 09:34 MW [id number] 11/05/18 09:38 MW Document 11/12/18 09:30 MW [id number] 11/12/18 09:36 MW 10/29/18 11/05/18 11/12/18 09:53 09:34 09:30 Wound Center Nurse 2 #3 R Grt Toe Plantar -Time 09:53 09:35 09:32 -Correct Patient Yes Yes Yes -Correct Side, Site, Position Yes Yes Yes -Correct Procedure Yes Yes Yes -Procedure Performed Yes No Yes -Type of Procedure Debridement Debridement -Clinical Debridement Subcutaneous Selective -Post Debridement Size (cm) - Length 0.2 0.1 0.1 -Post Debridement Size (cm) - Width 0.2 0.1 0.1 -Post Debridement Size (cm) - Depth 0.1 0.1 0.1 -Total Square Cm 0.04 0.01 0.01 -Wound/Ulcer Outcome Not Healed Not Healed Not Healed -Ulcer Cleansing Rinsed/ Rinsed/ Irrigated with Irrigated with Saline Saline -Foul Odor after Cleansing No No -Bioengineered Tissue No No -Bleeding Controlled with Pressure Pressure NA -Offloading No No No -Treatment Response Procedure Procedure Procedure Tolerated Well Tolerated Well Tolerated Well #2 L Foot Dorsal -Time 09:53 09:35 09:31 -Correct Patient Yes Yes Yes -Correct Side, Site, Position Yes Yes Yes -Correct Procedure Yes Yes Yes -Procedure Performed Yes Yes Yes -Type of Procedure Debridement Debridement Debridement -Clinical Debridement Subcutaneous Subcutaneous Subcutaneous -Post Debridement Size (cm) - Length 0.8 0.6 0.6 -Post Debridement Size (cm) - Width 0.5 0.4 0.5 -Post Debridement Size (cm) - Depth 0.1 0.1 0.1 -Total Square Cm 0.40 0.24 0.30 -Wound/Ulcer Outcome Not Healed Not Healed Not Healed -Ulcer Cleansing Rinsed/ Rinsed/ Rinsed/ Irrigated with Irrigated with Irrigated with Saline Saline Saline -Foul Odor after Cleansing No No No -Bioengineered Tissue No No No -Bleeding Controlled with Pressure Pressure Pressure -Offloading No No No -Treatment Response Procedure Procedure Procedure Tolerated Well Tolerated Well Tolerated Well Pain Scale: 0-10 Numeric Is Patient Pain Free? Yes Yes Yes Wound debrided: Left foot dorsum Wound Grade/Stage: Stage II Type of Debridement: Excisional debridement Anesthesia Used: 4% Lidocaine Solution Depth: Down to and including healthy tissue, in the subcutaneous layer Percentage of wound debrided: 100 Instrument Used: 3mm curette Tissue Removed: Slough and devitalized tissue Severity: Fat Layer Exposed Amount of bleeding with debridement: Mild Bleeding Controlled with: Pressure Patient tolerated procedure well - Additional Wound Wound debrided: Right great toe Wound Grade/Stage: Stage 2 Type of Debridement: Selective debridement Anesthesia Used: 4% Lidocaine Solution Depth: Down to and including healthy tissue, in the subcutaneous layer Percentage of wound debrided: 100 Instrument Used: 5mm curette Tissue Removed: Devitalized tissue Severity: Limited To Skin Breakdown Amount of bleeding with debridement: None Patient tolerated procedure: Patient tolerated procedure well Assessment/Plan Active Problems (Last Reviewed 10/19/18 @ 13:38 by Maggie Pretty) Chronic ulcer of right great toe with fat layer exposed (Chronic) Traumatic ulcer of left foot with fat layer exposed (Chronic) Peripheral arterial disease (Chronic) Diabetes mellitus type II, uncontrolled (Chronic) Assessment: Traumatic ulcer of the left dorsal foot and chronic right great toe ulcer in a patient with poorly controlled diabetes mellitus. Plan: Debridement of done as documented above. Procedure was well-tolerated. Continue Promogran with Adaptic over top to both. Change daily to twice daily. Continue barrier to left lateral foot due to bony deformity. Left dorsal foot midly Macerated. They had used Band-Aids over it. Advised to discontinue. Double layer Tubigrip for edema management. Offloading strongly recommended for right lower extremity. Advised to follow-up with her waste oil pumper for proper fitting. Increased protein intake recommended. Optimal blood sugar control also strongly recommended. All her questions were answered and she was advised to call with any further questions or concerns. Follow-up in 1 week. This note was generated with [employer] dictation software. It may contain incorrect words, spelling, and punctuation that were not noted in checking the note before signing.
--- NOTE | 2018-11-12 13:26 | PN.PCM_ITS ---
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 Status: Chronic Current Visit: Yes Code(s): L97.522 - Non-pressure chronic ulcer of other part of left foot with fat layer exposed (2) Chronic ulcer of right great toe with fat layer exposed Status: Chronic Current Visit: Yes Code(s): L97.512 - Non-pressure chronic ulcer of other part of right foot with fat layer exposed (3) Diabetes mellitus type II, uncontrolled Status: Chronic Current Visit: Yes Code(s): E11.65 - Type 2 diabetes mellitus with hyperglycemia (4) Peripheral arterial disease Status: Chronic Current Visit: Yes Code(s): I73.9 - Peripheral vascular disease, unspecified Type of Wound Chief Complaint: Traumatic ulceration of left foot and chronic right great toe ulcer. History of Wound: Ms. Rothman is a 78-year-old who was referred to the wound center by her used car sales manager for continued wound care. She has a chronic right great toe ulcer which she has been managing conservatively at home for about 6 months. However, she presented to a used car sales manager due to left foot ulcer. She had a bowel drop on her foot about 3 weeks ago. She subsequently developed discolor ation and swelling for which she was seen in the emergency room. Imaging done at that time was without any significant abnormality. Plan was to conservatively manage. However about a week ago. She noted an opening over the area with associated drainage/discharge. She was seen by her used car sales manager and vacuum therapy was recommended. She reports a history of diabetes which is not well controlled. Last A1c per patient was around 9. She is currently on insulin. Progress of Wound: Stable. No new concerns at this time. - Physical Exam Vital Signs Temp Pulse Resp BP 96.2 F L 51 L 16 130/60 H 11/12/18 09:18 11/12/18 09:18 11/12/18 09:18 11/12/18 09:18 General: Alert, Oriented x3, Cooperative, No apparent distress HEENT: Atraumatic, Normocephalic Oral: Moist Mucosa Neck: Supple Skin: Ulcer/ Wound Wound Measurements and Assessment WC - Nurse 1 - General Ulcer Measurement Start: 10/29/18 09:27 Freq: Status: Active Protocol: Activity Type Activity Date Activity User E-Sign Co-Sign Detail Recorded Client Recorded Date Recorded By Document 11/12/18 09:18 MW [id number] 11/12/18 09:24 MW 11/12/18 09:18 Wound Center Nurse 1 [Ulcer Assessment] #3 R Grt Toe Plantar -Current Size (cm) - Length 0.1 -Current Size (cm) - Width 0.1 -Current Size (cm) - Depth 0.1 -Total Square Cm 0.01 #2 L Foot Dorsal -Combined with other wound No -Current Size (cm) - Length 0.7 -Current Size (cm) - Width 0.4 -Current Size (cm) - Depth 0.1 -Total Square Cm 0.28 -Photo Taken No -Tunneling No -Undermining/Tunneling No -Circular Undermining No -Exudate Amt Small -Exudate Type Serosanguineous -Wound Margin Flat & Intact -Granulation Amt Small (1-33%) -Granulation Quality Pale [place] -Necrosis Amt Large (67-100%) -Necrotic Tissue Type Adherent Slough -Texture (Amy-wound Skin Appearance) Assessed -Moisture (Amy-wound Skin Appearance Assessed ) Maceration -Color (Amy-wound Skin Appearance) Assessed -Temperature (Amy-wound Skin No Abnormality Appearance) (Pt Warm) -Tenderness on Palpation (Amy-wound No Skin Appearance) -Ulcer Cleansing Rinsed/ Irrigated with Saline -Foul Odor after Cleansing No -Anesthetic Used 4% Lidocaine Solution [Edema Assessment] -Lower Limb Edema Present NA - Nurse 2 - General Ulcer CM Notes Start: 10/29/18 09:27 Freq: Status: Active Protocol: Activity Type Activity Date Activity User E-Sign Co-Sign Detail Recorded Client Recorded Date Recorded By Document 11/12/18 09:30 MW [id number] 11/12/18 09:36 MW 11/12/18 09:30 Wound Center Nurse 2 [Procedure/Treatment] #3 R Grt Toe Plantar -Time 09:32 -Correct Patient Yes -Correct Side, Site, Position Yes -Correct Procedure Yes -Procedure Performed Yes -Type of Procedure Debridement -Clinical Debridement Selective -Post Debridement Size (cm) - Length 0.1 -Post Debridement Size (cm) - Width 0.1 -Post Debridement Size (cm) - Depth 0.1 -Total Square Cm 0.01 -Wound/Ulcer Outcome Not Healed -Ulcer Cleansing Rinsed/ Irrigated with Saline -Foul Odor after Cleansing No -Bioengineered Tissue No -Bleeding Controlled with NA -Offloading No -Treatment Response Procedure Tolerated Well #2 L Foot Dorsal -Time 09:31 -Correct Patient Yes -Correct Side, Site, Position Yes -Correct Procedure Yes -Procedure Performed Yes -Type of Procedure Debridement -Clinical Debridement Subcutaneous -Post Debridement Size (cm) - Length 0.6 -Post Debridement Size (cm) - Width 0.5 -Post Debridement Size (cm) - Depth 0.1 -Total Square Cm 0.30 -Wound/Ulcer Outcome Not Healed -Ulcer Cleansing Rinsed/ Irrigated with Saline -Foul Odor after Cleansing No -Bioengineered Tissue No -Bleeding Controlled with Pressure -Offloading No -Treatment Response Procedure Tolerated Well [See Physician Procedure note for Specifics] Pain Scale: 0-10 Numeric [Pain] -Is Patient Pain Free? Yes Musculoskeletal: No Muscle Wasting Neurological: Cranial nerves II-XII grossly intact Psych/Mental Status: Normal Affect Debridement Note Post-Debridement Measurements/Treatment WC - Nurse 2 - General Ulcer CM Notes Start: 10/29/18 09:27 Freq: Status: Active Protocol: Activity Type Activity Date Activity User E-Sign Co-Sign Detail Recorded Client Recorded Date Recorded By Document 10/29/18 09:53 MW [id number] 10/29/18 10:03 MW Document 11/05/18 09:34 MW [id number] 11/05/18 09:38 MW Document 11/12/18 09:30 MW [id number] 11/12/18 09:36 MW 10/29/18 11/05/18 11/12/18 09:53 09:34 09:30 Wound Center Nurse 2 #3 R Grt Toe Plantar -Time 09:53 09:35 09:32 -Correct Patient Yes Yes Yes -Correct Side, Site, Position Yes Yes Yes -Correct Procedure Yes Yes Yes -Procedure Performed Yes No Yes -Type of Procedure Debridement Debridement -Clinical Debridement Subcutaneous Selective -Post Debridement Size (cm) - Length 0.2 0.1 0.1 -Post Debridement Size (cm) - Width 0.2 0.1 0.1 -Post Debridement Size (cm) - Depth 0.1 0.1 0.1 -Total Square Cm 0.04 0.01 0.01 -Wound/Ulcer Outcome Not Healed Not Healed Not Healed -Ulcer Cleansing Rinsed/ Rinsed/ Irrigated with Irrigated with Saline Saline -Foul Odor after Cleansing No No -Bioengineered Tissue No No -Bleeding Controlled with Pressure Pressure NA -Offloading No No No -Treatment Response Procedure Procedure Procedure Tolerated Well Tolerated Well Tolerated Well #2 L Foot Dorsal -Time 09:53 09:35 09:31 -Correct Patient Yes Yes Yes -Correct Side, Site, Position Yes Yes Yes -Correct Procedure Yes Yes Yes -Procedure Performed Yes Yes Yes -Type of Procedure Debridement Debridement Debridement -Clinical Debridement Subcutaneous Subcutaneous Subcutaneous -Post Debridement Size (cm) - Length 0.8 0.6 0.6 -Post Debridement Size (cm) - Width 0.5 0.4 0.5 -Post Debridement Size (cm) - Depth 0.1 0.1 0.1 -Total Square Cm 0.40 0.24 0.30 -Wound/Ulcer Outcome Not Healed Not Healed Not Healed -Ulcer Cleansing Rinsed/ Rinsed/ Rinsed/ Irrigated with Irrigated with Irrigated with Saline Saline Saline -Foul Odor after Cleansing No No No -Bioengineered Tissue No No No -Bleeding Controlled with Pressure Pressure Pressure -Offloading No No No -Treatment Response Procedure Procedure Procedure Tolerated Well Tolerated Well Tolerated Well Pain Scale: 0-10 Numeric Is Patient Pain Free? Yes Yes Yes Wound debrided: Left foot dorsum Wound Grade/Stage: Stage II Type of Debridement: Excisional debridement Anesthesia Used: 4% Lidocaine Solution Depth: Down to and including healthy tissue, in the subcutaneous layer Percentage of wound debrided: 100 Instrument Used: 3mm curette Tissue Removed: Slough and devitalized tissue Severity: Fat Layer Exposed Amount of bleeding with debridement: Mild Bleeding Controlled with: Pressure Patient tolerated procedure well - Additional Wound Wound debrided: Right great toe Wound Grade/Stage: Stage 2 Type of Debridement: Selective debridement Anesthesia Used: 4% Lidocaine Solution Depth: Down to and including healthy tissue, in the subcutaneous layer Percentage of wound debrided: 100 Instrument Used: 5mm curette Tissue Removed: Devitalized tissue Severity: Limited To Skin Breakdown Amount of bleeding with debridement: None Patient tolerated procedure: Patient tolerated procedure well Assessment/Plan Active Problems (Last Reviewed 10/19/18 @ 13:38 by Maggie Pretty) Chronic ulcer of right great toe with fat layer exposed (Chronic) Traumatic ulcer of left foot with fat layer exposed (Chronic) Peripheral arterial disease (Chronic) Diabetes mellitus type II, uncontrolled (Chronic) Assessment: Traumatic ulcer of the left dorsal foot and chronic right great toe ulcer in a patient with poorly controlled diabetes mellitus. Plan: Debridement of done as documented above. Procedure was well-tolerated. Continue Promogran with Adaptic over top to both. Change daily to twice daily. Continue barrier to left lateral foot due to bony deformity. Left dorsal foot midly Macerated. They had used Band-Aids over it. Advised to discontinue. Double layer Tubigrip for edema management. Offloading strongly recommended for right lower extremity. Advised to follow-up with her used car sales manager for proper fitting. Increased protein intake recommended. Optimal blood sugar control also strongly recommended. All her questions were answered and she was advised to call with any further questions or concerns. Follow-up in 1 week. This note was generated with [employer] dictation software. It may contain incorrect words, spelling, and punctuation that were not noted in checking the note before signing.
[2018-11-19 08:19] VITALS: BP 108/50; PULSE 50; RESP 18; TEMP 35.9; BMI 29.9
--- NOTE | 2018-11-19 08:33 | PCM.WC.PN ---
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 Status: Chronic Current Visit: Yes Code(s): L97.522 - Non-pressure chronic ulcer of other part of left foot with fat layer exposed (2) Chronic ulcer of right great toe with fat layer exposed Status: Chronic Current Visit: Yes Code(s): L97.512 - Non-pressure chronic ulcer of other part of right foot with fat layer exposed (3) Diabetes mellitus type II, uncontrolled Status: Chronic Current Visit: Yes Code(s): E11.65 - Type 2 diabetes mellitus with hyperglycemia (4) Peripheral arterial disease Status: Chronic Current Visit: Yes Code(s): I73.9 - Peripheral vascular disease, unspecified Type of Wound Chief Complaint: Traumatic ulceration of left foot and chronic right great toe ulcer. History of Wound: Ms. Rothman is a 78-year-old who was referred to the wound center by her store group manager for continued wound care. She has a chronic right great toe ulcer which she has been managing conservatively at home for about 6 months. However, she presented to a store group manager due to left foot ulcer. She had a bowel drop on her foot about 3 weeks ago. She subsequently developed discoloration and swelling for which she was seen in the emergency room. Imaging done at that time was without any significant abnormality. Plan was to conservatively manage. However about a week ago. She noted an opening over the area with associated drainage/discharge. She was seen by her store group manager and vacuum therapy was recommended. She reports a history of diabetes which is not well controlled. Last A1c per patient was around 9. She is currently on insulin. Progress of Wound: Stable. No new concerns at this time. - Physical Exam Vital Signs Temp Pulse Resp BP 96.6 F L 50 L 18 108/50 L 11/19/18 08:19 11/19/18 08:19 11/19/18 08:19 11/19/18 08:19 General: Alert, Oriented x3, Cooperative, No apparent distress HEENT: Atraumatic, Normocephalic Oral: Moist Mucosa Neck: Supple Lungs: Normal air movement Abdomen: Non Tender Extremities: No cyanosis Skin: Ulcer/ Wound Wound Measurements and Assessment WC - Nurse 1 - General Ulcer Measurement Start: 10/29/18 09:27 Freq: Status: Active Protocol: Activity Type Activity Date Activity User E-Sign Co-Sign Detail Recorded Client Recorded Date Recorded By Document 11/19/18 08:19 MW [id number] 11/19/18 08:25 MW 11/19/18 08:19 Wound Center Nurse 1 [Ulcer Assessment] #3 R Grt Toe Plantar -Combined with other wound No -Current Size (cm) - Length 0.1 -Current Size (cm) - Width 0.1 -Current Size (cm) - Depth 0.1 -Total Square Cm 0.01 -Photo Taken No -Epithelialization None Present -Tunneling No -Undermining/Tunneling No -Circular Undermining No -Exudate Amt None Present -Wound Margin Flat & Intact -Granulation Amt None Present (0 %) -Granulation Quality N/A -Slough/Fibrin Yes -Necrosis Amt Small (1-33%) -Necrotic Tissue Type Adherent Slough -Structure Exposed N/A -Texture (Amy-wound Skin Appearance) Assessed Callus -Moisture (Amy-wound Skin Appearance No Abnormality ) Assessed -Color (Amy-wound Skin Appearance) No Abnormality Assessed -Temperature (Amy-wound Skin No Abnormality Appearance) (Pt Warm) -Tenderness on Palpation (Amy-wound No Skin Appearance) -Ulcer Cleansing Rinsed/ Irrigated with Saline -Foul Odor after Cleansing No -Anesthetic Used 4% Lidocaine Solution #2 L Foot Dorsal -Combined with other wound No -Current Size (cm) - Length 0.7 -Current Size (cm) - Width 0.4 -Current Size (cm) - Depth 0.1 -Total Square Cm 0.28 -Photo Taken No -Epithelialization Small 1-33% -Tunneling No -Undermining/Tunneling No -Circular Undermining No -Exudate Amt Small -Exudate Type Serous -Wound Margin Flat & Intact -Granulation Amt Medium (34-66%) -Granulation Quality [place] -Slough/Fibrin Yes -Necrosis Amt Small (1-33%) -Necrotic Tissue Type Adherent Slough -Structure Exposed N/A -Texture (Amy-wound Skin Appearance) Assessed Scarring -Moisture (Amy-wound Skin Appearance No Abnormality ) Assessed -Color (Amy-wound Skin Appearance) No Abnormality Assessed -Temperature (Amy-wound Skin No Abnormality Appearance) (Pt Warm) -Tenderness on Palpation (Amy-wound Yes Skin Appearance) -Ulcer Cleansing Rinsed/ Irrigated with Saline -Foul Odor after Cleansing No -Anesthetic Used 4% Lidocaine Solution [Edema Assessment] -Lower Limb Edema Present Yes -Right Calf (cm) 35.7 -Right Ankle (cm) 22.0 -Left Calf (cm) 35.4 -Left Ankle (cm) 22.0 JAVED - Nurse 2 - General Ulcer CM Notes Start: 10/29/18 09:27 Freq: Status: Active Protocol: Activity Type Activity Date Activity User E-Sign Co-Sign Detail Recorded Client Recorded Date Recorded By Document 11/19/18 08:27 MW [id number] 11/19/18 08:31 MW 11/19/18 08:27 Wound Center Nurse 2 [Procedure/Treatment] #3 R Grt Toe Plantar -Time 08:28 -Correct Patient Yes -Correct Side, Site, Position Yes -Correct Procedure Yes -Procedure Performed No -Wound/Ulcer Outcome Not Healed -Treatment Response Procedure Tolerated Well #2 L Foot Dorsal -Time 08:28 -Correct Patient Yes -Correct Side, Site, Position Yes -Correct Procedure Yes -Procedure Performed Yes -Type of Procedure Debridement -Clinical Debridement Subcutaneous -Post Debridement Size (cm) - Length 0.5 -Post Debridement Size (cm) - Width 0.3 -Post Debridement Size (cm) - Depth 0.1 -Total Square Cm 0.15 -Wound/Ulcer Outcome Not Healed -Ulcer Cleansing Rinsed/ Irrigated with Saline -Foul Odor after Cleansing No -Bioengineered Tissue No -Bleeding Controlled with Pressure -Offloading No -Treatment Response Procedure Tolerated Well [See Physician Procedure note for Specifics] Pain Scale: 0-10 Numeric [Pain] -Is Patient Pain Free? Yes Musculoskeletal: No Muscle Wasting Neurological: Cranial nerves II-XII grossly intact Psych/Mental Status: Normal Affect Debridement Note Post-Debridement Measurements/Treatment - Nurse 2 - General Ulcer CM Notes Start: 10/29/18 09:27 Freq: Status: Active Protocol: Activity Type Activity Date Activity User E-Sign Co-Sign Detail Recorded Client Recorded Date Recorded By Document 10/29/18 09:53 MW [id number] 10/29/18 10:03 MW Document 11/05/18 09:34 MW [id number] 11/05/18 09:38 MW Document 11/12/18 09:30 MW [id number] 11/12/18 09:36 MW Document 11/19/18 08:27 MW [id number] 11/19/18 08:31 MW 10/29/18 11/05/18 11/12/18 09:53 09:34 09:30 Wound Center Nurse 2 #3 R Grt Toe Plantar -Time 09:35 09:32 -Correct Patient Yes Yes Yes -Correct Side, Site, Position Yes Yes Yes -Correct Procedure Yes Yes Yes -Procedure Performed Yes No Yes -Type of Procedure Debridement Debridement -Clinical Debridement Subcutaneous Selective -Post Debridement Size (cm) - Length 0.2 0.1 0.1 -Post Debridement Size (cm) - Width 0.2 0.1 0.1 -Post Debridement Size (cm) - Depth 0.1 0.1 0.1 -Total Square Cm 0.04 0.01 0.01 -Wound/Ulcer Outcome Not Healed Not Healed Not Healed -Ulcer Cleansing Rinsed/ Rinsed/ Irrigated with Irrigated with Saline Saline -Foul Odor after Cleansing No No -Bioengineered Tissue No No -Bleeding Controlled with Pressure Pressure NA -Offloading No No No -Treatment Response Procedure Procedure Procedure Tolerated Well Tolerated Well Tolerated Well #2 L Foot Dorsal -Time 09:35 09:31 -Correct Patient Yes Yes Yes -Correct Side, Site, Position Yes Yes Yes -Correct Procedure Yes Yes Yes -Procedure Performed Yes Yes Yes -Type of Procedure Debridement Debridement Debridement -Clinical Debridement Subcutaneous Subcutaneous Subcutaneous -Post Debridement Size (cm) - Length 0.8 0.6 0.6 -Post Debridement Size (cm) - Width 0.5 0.4 0.5 -Post Debridement Size (cm) - Depth 0.1 0.1 0.1 -Total Square Cm 0.40 0.24 0.30 -Wound/Ulcer Outcome Not Healed Not Healed Not Healed -Ulcer Cleansing Rinsed/ Rinsed/ Rinsed/ Irrigated with Irrigated with Irrigated with Saline Saline Saline -Foul Odor after Cleansing No No No -Bioengineered Tissue No No No -Bleeding Controlled with Pressure Pressure Pressure -Offloading No No No -Treatment Response Procedure Procedure Procedure Tolerated Well Tolerated Well Tolerated Well Pain Scale: 0-10 Numeric Is Patient Pain Free? Yes Yes Yes 11/19/18 08:27 Wound Center Nurse 2 #3 R Grt Toe Plantar -Time 08:28 -Correct Patient Yes -Correct Side, Site, Position Yes -Correct Procedure Yes -Procedure Performed No -Type of Procedure -Clinical Debridement -Post Debridement Size (cm) - Length -Post Debridement Size (cm) - Width -Post Debridement Size (cm) - Depth -Total Square Cm -Wound/Ulcer Outcome Not Healed -Ulcer Cleansing -Foul Odor after Cleansing -Bioengineered Tissue -Bleeding Controlled with -Offloading -Treatment Response Procedure Tolerated Well #2 L Foot Dorsal -Time 08:28 -Correct Patient Yes -Correct Side, Site, Position Yes -Correct Procedure Yes -Procedure Performed Yes -Type of Procedure Debridement -Clinical Debridement Subcutaneous -Post Debridement Size (cm) - Length 0.5 -Post Debridement Size (cm) - Width 0.3 -Post Debridement Size (cm) - Depth 0.1 -Total Square Cm 0.15 -Wound/Ulcer Outcome Not Healed -Ulcer Cleansing Rinsed/ Irrigated with Saline -Foul Odor after Cleansing No -Bioengineered Tissue No -Bleeding Controlled with Pressure -Offloading No -Treatment Response Procedure Tolerated Well Pain Scale: 0-10 Numeric Is Patient Pain Free? Yes Wound debrided: Left Dorsal foot Wound Grade/Stage: Stage III Type of Debridement: Excisional debridement Anesthesia Used: 4% Lidocaine Solution Depth: Down to and including healthy tissue, in the subcutaneous layer Percentage of wound debrided: 100 Instrument Used: 3mm curette Tissue Removed: Slough and devitalized tissue Severity: Fat Layer Exposed Amount of bleeding with debridement: Mild Bleeding Controlled with: Pressure Assessment/Plan Active Problems (Last Reviewed 10/19/18 @ 13:38 by Maggie Pretty) Chronic ulcer of right great toe with fat layer exposed (Chronic) Traumatic ulcer of left foot with fat layer exposed (Chronic) Peripheral arterial disease (Chronic) Diabetes mellitus type II, uncontrolled (Chronic) Assessment: Traumatic ulcer of the left dorsal foot and chronic right great toe ulcer in a patient with poorly controlled diabetes mellitus. Plan: Improving. Debridement done as documented above. Procedure was well-tolerated. Continue Promogran with Adaptic over top to both. Change daily to twice daily. Continue barrier to left lateral foot due to bony deformity. Left dorsal foot midly Macerated. Double layer Tubigrip for edema management. Offloading strongly recommended for right lower extremity. Advised to follow-up with her store group manager for proper fitting. Increased protein intake recommended. Optimal blood sugar control also strongly recommended. All her questions were answered and she was advised to call with any further questions or concerns. Follow-up in 1 week. This note was generated with [employer] software. It may contain incorrect words, spelling, and punctuation that were not noted in checking the note before signing.
--- NOTE | 2018-11-19 08:37 | PN.PCM_ITS ---
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 Status: Chronic Current Visit: Yes Code(s): L97.522 - Non-pressure chronic ulcer of other part of left foot with fat layer exposed (2) Chronic ulcer of right great toe with fat layer exposed Status: Chronic Current Visit: Yes Code(s): L97.512 - Non-pressure chronic ulcer of other part of right foot with fat layer exposed (3) Diabetes mellitus type II, uncontrolled Status: Chronic Current Visit: Yes Code(s): E11.65 - Type 2 diabetes mellitus with hyperglycemia (4) Peripheral arterial disease Status: Chronic Current Visit: Yes Code(s): I73.9 - Peripheral vascular disease, unspecified Type of Wound Chief Complaint: Traumatic ulceration of left foot and chronic right great toe ulcer. History of Wound: Ms. Rothman is a 78-year-old who was referred to the wound center by her house painter helper for continued wound care. She has a chronic right great toe ulcer which she has been managing conservatively at home for about 6 months. However, she presented to a house painter helper due to left foot ulcer. She had a bowel drop on her foot about 3 weeks ago. She subsequently developed discolor ation and swelling for which she was seen in the emergency room. Imaging done at that time was without any significant abnormality. Plan was to conservatively manage. However about a week ago. She noted an opening over the area with associated drainage/discharge. She was seen by her house painter helper and vacuum therapy was recommended. She reports a history of diabetes which is not well controlled. Last A1c per patient was around 9. She is currently on insulin. Progress of Wound: Stable. No new concerns at this time. - Physical Exam Vital Signs Temp Pulse Resp BP 96.6 F L 50 L 18 108/50 L 11/19/18 08:19 11/19/18 08:19 11/19/18 08:19 11/19/18 08:19 General: Alert, Oriented x3, Cooperative, No apparent distress HEENT: Atraumatic, Normocephalic Oral: Moist Mucosa Neck: Supple Lungs: Normal air movement Abdomen: Non Tender Extremities: No cyanosis Skin: Ulcer/ Wound Wound Measurements and Assessment WC - Nurse 1 - General Ulcer Measurement Start: 10/29/18 09:27 Freq: Status: Active Protocol: Activity Type Activity Date Activity User E-Sign Co-Sign Detail Recorded Client Recorded Date Recorded By Document 11/19/18 08:19 MW [id number] 11/19/18 08:25 MW 11/19/18 08:19 Wound Center Nurse 1 [Ulcer Assessment] #3 R Grt Toe Plantar -Combined with other wound No -Current Size (cm) - Length 0.1 -Current Size (cm) - Width 0.1 -Current Size (cm) - Depth 0.1 -Total Square Cm 0.01 -Photo Taken No -Epithelialization None Present -Tunneling No -Undermining/Tunneling No -Circular Undermining No -Exudate Amt None Present -Wound Margin Flat & Intact -Granulation Amt None Present (0 %) -Granulation Quality N/A -Slough/Fibrin Yes -Necrosis Amt Small (1-33%) -Necrotic Tissue Type Adherent Slough -Structure Exposed N/A -Texture (Amy-wound Skin Appearance) Assessed Callus -Moisture (Amy-wound Skin Appearance No Abnormality ) Assessed -Color (Amy-wound Skin Appearance) No Abnormality Assessed -Temperature (Amy-wound Skin No Abnormality Appearance) (Pt Warm) -Tenderness on Palpation (Amy-wound No Skin Appearance) -Ulcer Cleansing Rinsed/ Irrigated with Saline -Foul Odor after Cleansing No -Anesthetic Used 4% Lidocaine Solution #2 L Foot Dorsal -Combined with other wound No -Current Size (cm) - Length 0.7 -Current Size (cm) - Width 0.4 -Current Size (cm) - Depth 0.1 -Total Square Cm 0.28 -Photo Taken No -Epithelialization Small 1-33% -Tunneling No -Undermining/Tunneling No -Circular Undermining No -Exudate Amt Small -Exudate Type Serous -Wound Margin Flat & Intact -Granulation Amt Medium (34-66%) -Granulation Quality [place] -Slough/Fibrin Yes -Necrosis Amt Small (1-33%) -Necrotic Tissue Type Adherent Slough -Structure Exposed N/A -Texture (Amy-wound Skin Appearance) Assessed Scarring -Moisture (Amy-wound Skin Appearance No Abnormality ) Assessed -Color (Amy-wound Skin Appearance) No Abnormality Assessed -Temperature (Amy-wound Skin No Abnormality Appearance) (Pt Warm) -Tenderness on Palpation (Amy-wound Yes Skin Appearance) -Ulcer Cleansing Rinsed/ Irrigated with Saline -Foul Odor after Cleansing No -Anesthetic Used 4% Lidocaine Solution [Edema Assessment] -Lower Limb Edema Present Yes -Right Calf (cm) 35.7 -Right Ankle (cm) 22.0 -Left Calf (cm) 35.4 -Left Ankle (cm) 22.0 JAVED - Nurse 2 - General Ulcer CM Notes Start: 10/29/18 09:27 Freq: Status: Active Protocol: Activity Type Activity Date Activity User E-Sign Co-Sign Detail Recorded Client Recorded Date Recorded By Document 11/19/18 08:27 MW [id number] 11/19/18 08:31 MW 11/19/18 08:27 Wound Center Nurse 2 [Procedure/Treatment] #3 R Grt Toe Plantar -Time 08:28 -Correct Patient Yes -Correct Side, Site, Position Yes -Correct Procedure Yes -Procedure Performed No -Wound/Ulcer Outcome Not Healed -Treatment Response Procedure Tolerated Well #2 L Foot Dorsal -Time 08:28 -Correct Patient Yes -Correct Side, Site, Position Yes -Correct Procedure Yes -Procedure Performed Yes -Type of Procedure Debridement -Clinical Debridement Subcutaneous -Post Debridement Size (cm) - Length 0.5 -Post Debridement Size (cm) - Width 0.3 -Post Debridement Size (cm) - Depth 0.1 -Total Square Cm 0.15 -Wound/Ulcer Outcome Not Healed -Ulcer Cleansing Rinsed/ Irrigated with Saline -Foul Odor after Cleansing No -Bioengineered Tissue No -Bleeding Controlled with Pressure -Offloading No -Treatment Response Procedure Tolerated Well [See Physician Procedure note for Specifics] Pain Scale: 0-10 Numeric [Pain] -Is Patient Pain Free? Yes Musculoskeletal: No Muscle Wasting Neurological: Cranial nerves II-XII grossly intact Psych/Mental Status: Normal Affect Debridement Note Post-Debridement Measurements/Treatment - Nurse 2 - General Ulcer CM Notes Start: 10/29/18 09:27 Freq: Status: Active Protocol: Activity Type Activity Date Activity User E-Sign Co-Sign Detail Recorded Client Recorded Date Recorded By Document 10/29/18 09:53 MW [id number] 10/29/18 10:03 MW Document 11/05/18 09:34 MW [id number] 11/05/18 09:38 MW Document 11/12/18 09:30 MW [id number] 11/12/18 09:36 MW Document 11/19/18 08:27 MW [id number] 11/19/18 08:31 MW 10/29/18 11/05/18 11/12/18 09:53 09:34 09:30 Wound Center Nurse 2 #3 R Grt Toe Plantar -Time 09:35 09:32 -Correct Patient Yes Yes Yes -Correct Side, Site, Position Yes Yes Yes -Correct Procedure Yes Yes Yes -Procedure Performed Yes No Yes -Type of Procedure Debridement Debridement -Clinical Debridement Subcutaneous Selective -Post Debridement Size (cm) - Length 0.2 0.1 0.1 -Post Debridement Size (cm) - Width 0.2 0.1 0.1 -Post Debridement Size (cm) - Depth 0.1 0.1 0.1 -Total Square Cm 0.04 0.01 0.01 -Wound/Ulcer Outcome Not Healed Not Healed Not Healed -Ulcer Cleansing Rinsed/ Rinsed/ Irrigated with Irrigated with Saline Saline -Foul Odor after Cleansing No No -Bioengineered Tissue No No -Bleeding Controlled with Pressure Pressure NA -Offloading No No No -Treatment Response Procedure Procedure Procedure Tolerated Well Tolerated Well Tolerated Well #2 L Foot Dorsal -Time 09:35 09:31 -Correct Patient Yes Yes Yes -Correct Side, Site, Position Yes Yes Yes -Correct Procedure Yes Yes Yes -Procedure Performed Yes Yes Yes -Type of Procedure Debridement Debridement Debridement -Clinical Debridement Subcutaneous Subcutaneous Subcutaneous -Post Debridement Size (cm) - Length 0.8 0.6 0.6 -Post Debridement Size (cm) - Width 0.5 0.4 0.5 -Post Debridement Size (cm) - Depth 0.1 0.1 0.1 -Total Square Cm 0.40 0.24 0.30 -Wound/Ulcer Outcome Not Healed Not Healed Not Healed -Ulcer Cleansing Rinsed/ Rinsed/ Rinsed/ Irrigated with Irrigated with Irrigated with Saline Saline Saline -Foul Odor after Cleansing No No No -Bioengineered Tissue No No No -Bleeding Controlled with Pressure Pressure Pressure -Offloading No No No -Treatment Response Procedure Procedure Procedure Tolerated Well Tolerated Well Tolerated Well Pain Scale: 0-10 Numeric Is Patient Pain Free? Yes Yes Yes 11/19/18 08:27 Wound Center Nurse 2 #3 R Grt Toe Plantar -Time 08:28 -Correct Patient Yes -Correct Side, Site, Position Yes -Correct Procedure Yes -Procedure Performed No -Type of Procedure -Clinical Debridement -Post Debridement Size (cm) - Length -Post Debridement Size (cm) - Width -Post Debridement Size (cm) - Depth -Total Square Cm -Wound/Ulcer Outcome Not Healed -Ulcer Cleansing -Foul Odor after Cleansing -Bioengineered Tissue -Bleeding Controlled with -Offloading -Treatment Response Procedure Tolerated Well #2 L Foot Dorsal -Time 08:28 -Correct Patient Yes -Correct Side, Site, Position Yes -Correct Procedure Yes -Procedure Performed Yes -Type of Procedure Debridement -Clinical Debridement Subcutaneous -Post Debridement Size (cm) - Length 0.5 -Post Debridement Size (cm) - Width 0.3 -Post Debridement Size (cm) - Depth 0.1 -Total Square Cm 0.15 -Wound/Ulcer Outcome Not Healed -Ulcer Cleansing Rinsed/ Irrigated with Saline -Foul Odor after Cleansing No -Bioengineered Tissue No -Bleeding Controlled with Pressure -Offloading No -Treatment Response Procedure Tolerated Well Pain Scale: 0-10 Numeric Is Patient Pain Free? Yes Wound debrided: Left Dorsal foot Wound Grade/Stage: Stage III Type of Debridement: Excisional debridement Anesthesia Used: 4% Lidocaine Solution Depth: Down to and including healthy tissue, in the subcutaneous layer Percentage of wound debrided: 100 Instrument Used: 3mm curette Tissue Removed: Slough and devitalized tissue Severity: Fat Layer Exposed Amount of bleeding with debridement: Mild Bleeding Controlled with: Pressure Assessment/Plan Active Problems (Last Reviewed 10/19/18 @ 13:38 by Maggie Pretty) Chronic ulcer of right great toe with fat layer exposed (Chronic) Traumatic ulcer of left foot with fat layer exposed (Chronic) Peripheral arterial disease (Chronic) Diabetes mellitus type II, uncontrolled (Chronic) Assessment: Traumatic ulcer of the left dorsal foot and chronic right great toe ulcer in a patient with poorly controlled diabetes mellitus. Plan: Improving. Debridement done as documented above. Procedure was well- tolerated. Continue Promogran with Adaptic over top to both. Change daily to twice daily. Continue barrier to left lateral foot due to bony deformity. Left dorsal foot midly Macerated. Double layer Tubigrip for edema management. Offloading strongly recommended for right lower extremity. Advised to follow-up with her house painter helper for proper fitting. Increased protein intake recommended. Optimal blood sugar control also strongly recommended. All her questions were answered and she was advised to call with any further questions or concerns. Follow-up in 1 week. This note was generated with [employer] software. It may contain incorrect words, spelling, and punctuation that were not noted in checking the note before signing.
== END 2018-11-24 23:59 ==
LOC: WC 08:00
PROVIDERS: Family Provider Internal Medicine; PCP Internal Medicine; Visit Provider Internal Medicine
DX: E11.621 Type 2 diabetes mellitus with foot ulcer (principal); E11.65 Type 2 diabetes mellitus with hyperglycemia; E11.51 Type 2 diabetes mellitus with diabetic peripheral angiopathy without gangrene; L97.512 Non-pressure chronic ulcer of other part of right foot with fat layer exposed; L97.522 Non-pressure chronic ulcer of other part of left foot with fat layer exposed
CPT/HCPCS: 11042

== ENCOUNTER 2018-11-23 12:47 | Inpatient (IN) | payer MEDICARE, SELFPAY ==
[2018-11-23] VITALS (11 sets, daily range): BP systolic 129–204; BP diastolic 50–78; PULSE 47–65; RESP 16–37; TEMP 36.2–37.1; O2SAT 97–100; BMI 30.6; BMI 31.7; BMI 30.3
--- NOTE | 2018-11-23 12:52 | EKG12_ITS ---
Test Reason : SOB Blood Pressure : / mmHG Vent. Rate : 060 BPM Atrial Rate : 060 BPM P-R Int : 198 ms QRS Dur : 100 ms QT Int : 514 ms P-R-T Axes : -09 100 064 degrees QTc Int : 514 ms Normal sinus rhythm Rightward axis Nonspecific ST abnormality Prolonged QT Abnormal ECG Confirmed by SAJAN IZAGUIRRE, KENDRICK ([id number]), script editor ARMANDO DURAN ([id number]) on 11/26/2018 9:04:53 AM Referred By: KETURAH Confirmed By:KENDRICK MOELLER MD
--- NOTE | 2018-11-23 13:10 | RAD_ITS ---
STUDY: X-RAY CHEST REASON FOR EXAM: Female, 78 years old. Congestive heart failure. TECHNIQUE: Single AP portable view of the chest. COMPARISON: Comparison is made with prior study dated September 14, 2018. FINDINGS: EKG electrodes are seen. Minimal increased interstitial markings incomplete with curly B lines. Mild vascular congestion. There is no demonstrated pleural abnormality. Sternal cerclage wires are present from a prior sternotomy. The patient is status post mitral valve replacement. Moderate cardiomegaly. Normal mediastinum and jacki. Normal visualized pulmonary arteries. Normal visualized aortic arch and descending thoracic aorta. There are degenerative changes of the visualized thoracic spine. Prior right rotator cuff surgery. There is no demonstrated abnormality of the visualized soft tissue structures of the upper abdomen. RAD/Chest 1 View (Portable) IMPRESSION: Mild degree of CHF. Status post mitral valve replacement. Electronically Signed: Pierre Hua, at 13:48 EDT , Service support ,
[2018-11-23 13:21] LABS: Absolute Lymphocyte Count 1.09 X10^3/ul (0.83-4.51); Absolute Neutrophil Count 7.7 X10^3/uL (2.0-7.7); Basophil# 0.02 X10^3/uL; Basophil% 0.2 % (0-1); Eosinophil# 0.78 X10^3/uL; Eosinophils% 7.8 % (0-5); Hematocrit 38.8 % (37-47); Hemoglobin 12.3 g/dl (12.0-15.0); Lymphocyte # 1.09 X10^3/ul (4.0); Lymphocyte % 10.8 % (19-41); Mean Corp Hgb Conc 31.7 g/gl (32-36); Mean Corpuscular Hgb 25.5 pg (27.0-32.0); Mean Corpuscular Volume 80.3 fL (81-99); Mean Platelet Vol. 11.3 fl (6.2-12.0); Monocyte# 0.41 X10^3/uL; Monocyte% 4.1 % (0-10); Neutrophil # 7.73 X10^3/uL (2.7-7.7); Neutrophil % 76.9 % (47-70); Platelet Count 146 K/mm3 (150-450); RBC Distribution Width CV 16.4 % (11.6-14.6); RBC Distribution Width SD 48.1 fl (35.1-43.9); Red Blood Count 4.83 M/mm3 (4.2-5.4); White Blood Count 10.1 K/mm3 (4.4-11.0)
[2018-11-23 13:22] LABS: POSITIVE COUNT NO; POSITIVE DIFFERENTIAL NO; POSITIVE MORPHOLOGY NO
[2018-11-23 13:31] LABS: Anion Gap 2 (5-15); BUN 43 mg/dL (7-18); BUN/Creat Ratio 21.2 RATIO (10-20); Calcium,Total 8.3 mg/dL (8.5-10.1); Chloride 101 mmol/L (98-107); Creatinine, Serum 2.03 mg/dL (0.55-1.02); EST Glomerular Filtration Rate 25 mL/min (>60); Est Glom Filt Rate - Afr Amer 31 mL/min (>60); Glucose 420 mg/dL (74-106); Potassium 3.6 mmol/L (3.5-5.1); Sodium Level 137 mmol/L (136-145)
[2018-11-23 13:35] LABS: International Normalized Ratio 3.1; Prothrombin Time (Protime)PT. 32.1 SECONDS (11.7-14.9)
[2018-11-23] MEDS: Ipratropium/Albuterol Sulfate 3 ML AMPUL.NEB INHALATION ×2 (13:50→19:02)
--- NOTE | 2018-11-23 15:11 | ED.VISSUMM ---
- ER Visit Summary Date of Service: 11/23/18 Chief Complaint: Shortness of breath History of Present Illness: The patient is a 78 F presenting with sudden onset of shortness of breath that started 1 hour prior to arrival. Patient states she became very short of breath. She used her peak flow meter and it was less than 200. She states her oxygen sat was 78% on 2 L. EMS was called. She was started on CPAP per EMS. On arrival she is starting to improve. She denies chest pain. Denies fever. She has had a recent cough. She has a history of CHF, COPD, diabetes, hypertension, hypercholesteremia, chronic kidney disease. Physical Examination: Vitals are stable. Patient is afebrile. Alert no acute distress. HEENT exam is unremarkable. Neck is supple. Lungs are wheezing and diminished bilaterally. Heart is regular rate and rhythm. Abdomen is soft nontender nondistended. Extremities symmetric edema Skin is warm and dry. No focal neurologic deficit. Remainder of exam is unremarkable. Emergency Department Course and Treatment: Chest x-ray shows CHF. EKG is sinus rate of 60 with no acute ischemic changes. CBC normal except platelets 146. Chemistries showed glucose 420, BUN 43, creatinine 2.03. INR 3.1. Troponin 0.022. Patient was started on BiPAP in the ED. She was weaned back down to nasal cannula. She was given Lasix IV and albuterol. She continues to have dyspnea and will be discussed with the hospitalist for admission. Disposition: Admission Impression: CHF/COPD exacerbation This note was generated with [employer] dictation software. It may contain incorrect words, spelling, and punctuation that were not noted in review of the chart prior to signing ED Disposition - Plan for ED Patient: Referrals: Jovana Moulton MD [Primary Care Provider] -
--- NOTE | 2018-11-23 15:21 | NURSING ---
HOSPITALIST PAGED DR MENDIOLA OR C[employer]N DR LOU
--- NOTE | 2018-11-23 15:26 | NURSING ---
DR KORIN REBOLLAR
[2018-11-23] MEDS: Furosemide 40 MG/4 ML Vial IV ×2 (15:48→22:04)
--- NOTE | 2018-11-23 15:48 | NURSING ---
PCU ACUTE ON CHRONIC RESP FAILURE, COPD [facility]
--- NOTE | 2018-11-23 15:54 | HP.PCM_ITS ---
Problem List (1) Peripheral arterial disease Status: Chronic (2) Chronic hypoxemic respiratory failure Status: Chronic (3) CAD (coronary artery disease) Status: Chronic Qualifiers: (4) S/P PTCA (percutaneous transluminal coronary angioplasty) Status: Chronic (5) S/P CABG x 1 Status: Chronic (6) Hyperlipidemia Status: Chronic Qualifiers: (7) Hypertension Status: Chronic Qualifiers: Comment: resistant HTN (8) Diabetes mellitus type II, uncontrolled Status: Chronic (9) Chronic diastolic heart failure Status: Chronic (10) Pulmonary hypertension Status: Chronic (11) MAGALI (obstructive sleep apnea) Status: Chronic Comment: on CPAP History of Present Illness Date of Admission: 11/23/18 Chief Complaint: Shortness of breath. The patient is a 78 year old F with complicated past medical history as mentioned above presented to the emergency room because of worsening shortness of breath. She stated that her symptoms started all of a sudden this morning around 1 hour prior to arrival to the ER with sudden onset shortness of breath, at rest, aggravated by minimal activity, associated with cough with clear sputum and significant wheezing and without relieving factors. She mentioned that her pulse ox was 78% on 2 L at home. She stated that she has been getting more short of breath gradually over the course of the last 2 weeks, has been gra dually increasing and to the morning, it became very severe at rest. She reported mild increase in her leg edema and she has chronic orthopnea. She denied chest pain, palpitation, dizziness or lightheadedness. She denied fever or chills. In the emergency department, patient was dyspneic, tachypneic and tachycardic. Upon arrival to ER, patient was on CPAP that was put in by EMS. She received 1 dose of IV Solu-Medrol, IV Lasix, DuoNeb x2 and nursing staff was able to wean her down to nasal. Her routine blood work is remarkable for BUN of 43, creatinine of 2.03. Blood glucose is 420. Troponin is 0.022. Chest x-ray revealed minimal bilateral basal mild pulmonary vascular congestion, no other acute findings. Her EKG revealed normal sinus rhythm without evidence of acute ischemic changes or cardiac arrhythmias. She is being admitted for acute on chronic hypoxic respiratory failure mainly due to acute COPD exacerbation and acute on chronic diastolic CHF cannot be ruled out. Past Medical History Past Medical History (Chronic Problems): Chronic Problems (Last Updated 11/23/18 @ 15:49 by Dejah Singh MD) Chronic ulcer of right great toe with fat layer exposed (Chronic) Traumatic ulcer of left foot with fat layer exposed (Chronic) Peripheral arterial disease (Chronic) Chronic hypoxemic respiratory failure (Chronic) CAD (coronary artery disease) (Chronic) S/P PTCA (percutaneous transluminal coronary angioplasty) (Chronic) S/P CABG x 1 (Chronic) S/P left atrial appendage ligation (Chronic) Subdural bleeding (Chronic) Mitral stenosis (Chronic) Paroxysmal atrial fibrillation (Chronic) Depression (Chronic) S/P CABG x 1 (Chronic 09/29/14) 09/29/2014 CABG: SVG to distal LAD [facility] per Dr. Miller 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 Angela Alexis History of mitral valve replacement with bioprosthetic valve (Chronic 09/29/14) 09/29/2014: MVR with 27 mm Medtronic tisue valve per Dr. Angela Alexis Hyperlipidemia (Chronic) Hypertension (Chronic) resistant HTN Cerebrovascular disease (Chronic) ischemic stroke w hemorrhagic transformation in the setting of coumadin anticoagulation Anemia (Chronic) CRF (chronic renal failure) (Chronic) Anticoagulation goal of INR 2 to 3 (Chronic) Diabetes mellitus type II, uncontrolled (Chronic) Stroke with left visual deficit (Chronic) Chronic diastolic heart failure (Chronic) Pulmonary hypertension (Chronic) MAGALI (obstructive sleep apnea) (Chronic) on CPAP Medical History: Medical History (Last Updated 11/23/18 @ 15:49 by Dejah Singh MD) Subdural bleeding (Chronic) I62.00 Mitral stenosis (Chronic) I05.0 Paroxysmal atrial fibrillation (Chronic) I48.0 Depression (Chronic) F32.9 Hyperlipidemia (Chronic) E78.5 Hypertension (Chronic) I10 resistant HTN Cerebrovascular disease (Chronic) I67.9 ischemic stroke w hemorrhagic transformation in the setting of coumadin anticoagulation Anemia (Chronic) D64.9 CRF (chronic renal failure) (Chronic) N18.9 Anticoagulation goal of INR 2 to 3 (Chronic) Z51.81, Z79.01 Diabetes mellitus type II, uncontrolled (Chronic) E11.65 Stroke with left visual deficit (Chronic) Chronic diastolic heart failure (Chronic) I50.32 Pulmonary hypertension (Chronic) I27.20 MAGALI (obstructive sleep apnea) (Chronic) G47.33 on CPAP Dyspnea on exertion R06.09 Edema R60.9 Pulmonary hypertension, moderate to severe I27.20 Shortness of breath R06.02 Allergies dronedarone [From Multaq] Allergy (Severe, Verified 10/19/18 13:38) difficulty breathing dronedarone HCl [From Multaq] Allergy (Verified 10/19/18 13:38) Other unable to breath levofloxacin [From Levaquin] Adverse Reaction (Severe, Verified 10/19/18 13:46) hallucinations, hot flashes quinapril [From Accupril] Adverse Reaction (Severe, Verified 10/19/18 13:38) near syncope cortisone Adverse Reaction (Intermediate, Verified 10/19/18 13:38) swelling hydralazine Adverse Reaction (Intermediate, Verified 10/19/18 13:38) weakness Beta-Blockers (Beta-Adrenergic Bloc Adverse Reaction (Verified 10/19/18 13:38) Other WHEEZING, shaking, passes out CARDURA Allergy (Uncoded 10/19/18 13:38) Other PT NOT SURE- POSSIBLE SWELLING NORVASC Allergy (Uncoded 10/19/18 13:38) Swelling SCALLOPS Allergy (Uncoded 10/19/18 13:38) Swelling SULFA Allergy (Uncoded 10/19/18 13:38) Other SPOTS IN MOUTH/SORE MOUTH ATIVAN Adverse Reaction (Uncoded 10/19/18 13:38) Other HALLUCINATIONS METATOPOLOL TARTATE Adverse Reaction (Uncoded 10/19/18 13:38) Other Home Medications: Ambulatory Orders Medication Instructions Recorded Albuterol Inhaler [Ventolin Hfa] 2 puff INHALATION Q4H PRN PRN #1 10/27/14 inhaler Calcitriol [Rocaltrol] 0.25 mcg PO MOWEFR 01/16/17 Aspirin E.C. [Ecotrin] 81 mg PO QHS 01/07/18 Albuterol Aerosols [Ventolin 3 ml INHALATION BID 06/22/18 Aerosols] Amiodarone HCl 100 mg PO DAILY 06/22/18 Multivit-Min/Iron/Folic/Lutein 1 tab PO DAILY 06/22/18 [Centrum Silver Women Tablet] levothyroxine 88 mcg tablet 88 mcg PO DAILY 30 Days #90 tab 07/27/18 insulin glargine (U-100) 100 50 unit SC DAILY ml 09/29/18 unit/mL (3 mL) subcutaneous pen insulin lispro (U- 100) 100 See Protocol SC .with meals ml 09/29/18 unit/mL subcutaneous pen prednisone 10 mg tablet See Rx Instructions PO .COMPLEX 11/02/18 PRN tab Acetaminophen [Tylenol] 500 mg PO Q8 PRN 11/23/18 Acyclovir [Zovirax] 1 applic TOPICAL 5X/DAY 11/23/18 Furosemide 40 mg PO BID 11/23/18 Lecithin, Soy [Lecithin] 1,200 mg PO DAILY 11/23/18 Losartan Potassium [Cozaar] 50 mg PO DAILY 11/23/18 Umeclidinium Brm/Vilanterol Tr 1 inh INHALATION Q24H 11/23/18 [Anoro Ellipta] Warfarin Sodium 3 mg PO SUTHFRSA 11/23/18 Warfarin Sodium [Coumadin] 4 mg PO MOTUWE 11/23/18 Surgical History: Surgical History (Last Updated 11/23/18 @ 15:49 by Dejah Singh MD) S/P CABG x 1 (Chronic) Onset Date: 09/29/14 Z95.1 09/29/2014 CABG: SVG to distal LAD [facility] per Dr. Miller History of maze procedure (Chronic) Onset Date: 09/29/14 Z98.890 09/29/2014 atricure pulmonary vein isolation MAZE with ligation of left atrial appendage per Dr. Angela Alexis History of mitral valve replacement with bioprosthetic valve (Chronic) Onset Date: 09/29/14 Z95.3 09/29/2014: MVR with 27 mm Medtronic tisue valve per Dr. 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 CIVIL ENGINEER History: No pertinent SENIOR CIVIL ENGINEER history Lives: Spouse/ Significant Other Smoking Status: Never smoker Tobacco Use: Non-smoker, Secondhand - *Family History Maternal Family History: Family History (Last Reviewed 11/02/18 @ 15:10 by Bridget Lu) Father CAD (coronary artery disease) Hypertension Myocardial infarction Sudden cardiac Hyperlipidemia Mother Breast cancer Brother Cancer Sister Breast cancer Hyperlipidemia Sister Hyperlipidemia History Items: Cancer Paternal Family History: Family History (Last Reviewed 11/02/18 @ 15:10 by Bridget Lu) Father CAD (coronary artery disease) Hypertension Myocardial infarction Sudden cardiac Hyperlipidemia Mother Breast cancer Brother Cancer Sister Breast cancer Hyperlipidemia Sister Hyperlipidemia History Items: Heart Disease, Stroke Sibling Family History: Family History (Last Reviewed 11/02/18 @ 15:10 by Bridget Lu) Father CAD (coronary artery disease) Hypertension Myocardial infarction Sudden cardiac Hyperlipidemia Mother Breast cancer Brother Cancer Sister Breast cancer Hyperlipidemia Sister Hyperlipidemia History Items: Cancer - in brother and sister Review of Systems Constitutional: Reports: Weakness. Denies: Anorexia, Chills, Fever Eyes: Denies: Blurred vision, Double vision, Drainage, Redness HEENT: Denies: Difficulty Hearing, Ear Pain, Eye Pain, Nasal Congestion, Sore Throat Cardiovascular: Reports: Edema, Orthopnea. Denies: Chest Pain, Chest Pressure, Chest Tightness, Light Headedness, Paroxysmal Noc. Dyspnea, Syncope Respiratory: Reports: Cough, Shortness of Breath, Shortness of breath at rest, Shortness of breath upon exertion, Sputum production, Wheezing Gastrointestinal: Denies: Abdominal Pain, Constipation, Diarrhea, Nausea, Vomiting Genitourinary: Denies: Dysuria, Frequency, Hematuria Musculoskeletal: Denies: Arm Pain, Back Pain, Foot Pain Skin: Denies: Dryness, Rash Neurological: Denies: Balance problems, Double vision, Change in Speech, Slurred speech, Confusion, Headaches, Incoordination, Numbness Psychiatric: Denies: Anxiety, Depression Endocrine: Denies: Change in Body Habitus, Polydipsia VTE Information - Inpt Only VTE Present on Admission: No VTE Mechan Device Prophylaxis: None VTE Pharm Prophylaxis ordered?: No - Physical Exam General: Alert, Oriented x3, Cooperative, - - She is in moderate respiratory distress, dyspneic and tachypneic. HEENT: Atraumatic, PERRLA, EOMI, Normocephalic Oral: Moist Mucosa, No Gingival or Mucosal Lesions/ Ulcerations Neck: Supple, No JVD, Negative Carotid Bruits, Trachea Midline, Thyroid Normal Size and Texture Lungs: No rales, Diminished, Short of Breath, Tachypneic, Wheezes, - - Markedly decreased breath sounds bilateral, bilateral expiratory wheezes. Cardiovascular: Regular rate, Regular Rhythm, Normal S1, Normal S2, PMI Normal Abdomen: Bowel Sounds Present, Soft, Non Tender, Non-Distended, No Hepato- splenomegaly Extremities: No clubbing, No cyanosis, Edema - + Edema, stasis dermatitis. Skin: No rashes, No breakdown Lymphatic: No Cervical, Supraclavicular, or Inguinal Adenopathy Neurological: Cranial nerves II-XII grossly intact, Motor Exam 5/5 strength throughout Psych/Mental Status: Normal Affect, Appropriate, Alert and oriented to time, place, person, mood and affect Vital Signs Temp Pulse Resp BP Pulse Ox 97.1 F L 100 23 H 138/96 H 97 11/23/18 12:50 11/23/18 15:04 11/23/18 14:18 11/23/18 15:04 11/23/18 14:18 Oxygen Flow Rate (L/min) 3 Oxygen Delivery Method Nasal Cannula Weight: 179 lb 3.773 oz Body Mass Index (BMI) 31.7 Finger Stick Blood Glucose 257 Laboratory Tests Past 24 Hrs 11/23/18 11/23/18 11/23/18 12:55 12:55 12:55 WBC 10.1 RBC 4.83 Hgb 12.3 Hct 38.8 MCV 80.3 L MCH 25.5 L MCHC 31.7 L RDW 16.4 H RDW Differential 48.1 H Plt Count 146 L MPV 11.3 Immature Gran % (Auto) 0.200 Neut % (Auto) 76.9 H Lymph % (Auto) 10.8 L Harrison % (Auto) 4.1 Eos % (Auto) 7.8 H Baso % (Auto) 0.2 Absolute Neuts (auto) 7.7 Absolute Lymphs (auto) 1.09 Total Counted Not Reportable PT 32.1 H INR 3.1 Sodium 137 Potassium 3.6 Chloride 101 Carbon Dioxide 34.0 H Anion Gap 2 L BUN 43 H Creatinine 2.03 H Estim Creat Clear Calc 19.20 Est GFR (MDRD) Af Amer 31 L Est GFR (MDRD) Non-Af 25 L BUN/Creatinine Ratio 21.2 H Glucose 420 H Calcium 8.3 L Troponin I 0.022 Clinical Impression(s) from Imaging Studies Chest X-Ray 11/23/18 13:10 IMPRESSION: Mild degree of CHF. Status post mitral valve replacement. Electronically Signed: Pierre Hua, at 13:48 EDT , Service support , Assessment/Plan This is a 78 years old female patient presented to the medicine because of worsening shortness of breath, cough and wheezing in addition to chronic orthopnea and mildly increasing bilateral leg edema, found to have acute on chronic hypoxic respiratory failure mainly due to acute COPD exacerbation and probable component of acute on chronic diastolic CHF. #1 acute on chronic hypoxic respiratory failure: I think it is mainly because of acute COPD exacerbation given her sudden onset of symptoms with cough, wheezing and shortness of breath. Element of acute and chronic diastolic CHF cannot be ruled out. Chest x-ray reviewed. EKG reviewed as above. Patient is on home oxygen at 2 L. Plan: Admit to PCU, cardiac monitoring, serial cardiac enzymes, repeat EKG tomorrow morning, bronchodilators, IV steroids, IV diuretics, repeat CBC and BMP tomorrow morning, respiratory panel for viruses, chest physical therapy, PT OT evaluation and treatment. #2 acute COPD exacerbation: Based on sudden onset of symptoms, cough, wheezing and shortness of breath. Chest x-ray reviewed as above. Plan: DuoNeb every 4 hours, albuterol as needed, IV Solu-Medrol, respiratory panel for viruses, chest physiotherapy, Mucinex twice daily, incentive spirometer, Sputum culture. #3 probable acute on chronic diastolic CHF: She had an echocardiogram done on May, that revealed ejection fraction of 65%, RVSP of 72 consistent with severe pulmonary hypertension. Chest x-ray reviewed, minimal basal moderate pulmonary vascular congestion. EKG without acute ischemic changes. Troponin is negative. Plan: Start IV Lasix, input output chart, further restriction to less than 1500 cc daily, serial cardiac enzymes, repeat EKG tomorrow morning, continue losartan. #4 CAD status post CABG: EKG reviewed, troponin is normal. Continue aspirin and losartan, hold Coumadin, repeat INR tomorrow morning. #5 type 2 diabetes mellitus: ADA diet, Accu-Cheks every 6 hours, continue home doses of glargine insulin, insulin sliding scale. #6 paroxysmal atrial fibrillation: Rate is controlled, continue amiodarone for rate control, INR is 2.1. Hold Coumadin tonight, repeat INR tomorrow morning. #7 hypertension: Blood pressure stable, continue losartan, IV Lasix as above. #8 stage IV chronic kidney disease: Baseline creatinine has been around 2 to 2.5 mg/dL. Admission creatinine is 2.03, stable at baseline. Plan to monitor. #9 status post mitral valve replacement with bioprosthetic valve: Stable, echocardiogram this was done on May, reviewed as above. #10 hypothyroidism: Continue levothyroxine. #11 DVT prophylaxis: INR is 3.1. This note was generated with [employer] dictation software. It may contain incorrect words, spelling, and punctuation that were not noted in checking the note before signing. Code Visit Inpatient E&M: 23597 Init Hosp L3
[2018-11-23 17:20] LABS: Base Excess 2 mmol/L (-2 to +2); Bicarbonate 27.6 mmol/L (22-26); Blood Gas Specimen Type ART; O2 Delivery Device Nasal Can; PO2 96 mmHG (75-100); SITE R Radial; SO2 97 % (95-99); Time Given 1714; Total Carbon Dioxide 29 mmol/L; pH 7.36 (7.35-7.45)
[2018-11-23] MEDS: Insulin Lispro 100 UNIT/ML INSULN.PEN SC ×2 (17:59→22:04)
[2018-11-23 18:00] LABS: Bedside Glucose 404 mg/dL (70-110)
[2018-11-23] MEDS: Acetaminophen 325 MG Tablet 650 MG PO (20:36)
[2018-11-23] MEDS: 0.9% NaCl Peripheral Flush Adult/Peds IV ×2 (22:03→22:07)
[2018-11-23] MEDS: Aspirin E.C. 81 MG Tablet PO (22:03)
[2018-11-23] MEDS: guaiFENesin 1,200 MG Tablet 1200 MG PO (22:04)
[2018-11-23 22:21] LABS: Bedside Glucose 286 mg/dL (70-110)
[2018-11-23 23:23] LABS: Mucous, Urine 0 SEEN /hpf (<or=2+); Red Blood Cells-Urine 0 SEEN /hpf (0-5)
[2018-11-23 23:27] LABS: Color, Urine Yellow (Yellow); Glucose, Dipstick 1000 mg/dl (Normal); Ketone-Dipstick Negative (Negative); Leukocyte Esterase-Dipstick 100 /ul (Negative); Nitrite-Dipstick Positive (Negative); Occult Blood-Urine Negative /ul (Negative); Protein-Dipstick 15 mg/dl (Negative); Specific Gravity, Urine 1.015 (1.002-1.030); Urine Bilirubin Dipstick Negative (Negative); Urine Clarity Clear (Clear); Urine Urobilinogen Normal (Normal)
[2018-11-23 23:34] LABS: Bacteria 3+ /hpf (None Seen); Squamous Epithelial Cells - UA 0-5 SEEN /hpf (5-10); White Blood Cells 5-10 SEEN /hpf (0-5)
[2018-11-24] VITALS (13 sets, daily range): BP systolic 124–145; BP diastolic 45–54; PULSE 49–72; RESP 12–18; TEMP 36.1–36.7; O2SAT 98–100
[2018-11-24] MEDS: Levothyroxine 88 MCG Tablet PO (05:16)
[2018-11-24] MEDS: Furosemide 40 MG/4 ML Vial IV (05:17)
[2018-11-24] MEDS: 0.9% NaCl Peripheral Flush Adult/Peds IV ×4 (05:17→22:09)
[2018-11-24] MEDS: Insulin Lispro 100 UNIT/ML INSULN.PEN SC ×4 (05:17→22:09)
[2018-11-24 05:31] LABS: Bedside Glucose 266 mg/dL (70-110)
[2018-11-24 05:44] LABS: Absolute Lymphocyte Count 0.53 X10^3/ul (0.83-4.51); Absolute Neutrophil Count 8.2 X10^3/uL (2.0-7.7); Basophil# 0.03 X10^3/uL; Basophil% 0.3 % (0-1); Eosinophil# 0.31 X10^3/uL; Eosinophils% 3.4 % (0-5); Hematocrit 38.7 % (37-47); Lymphocyte # 0.53 X10^3/ul (4.0); Lymphocyte % 5.8 % (19-41); Mean Corpuscular Hgb 24.8 pg (27.0-32.0); Mean Corpuscular Volume 80.1 fL (81-99); Mean Platelet Vol. 11.5 fl (6.2-12.0); Monocyte# 0.02 X10^3/uL; Monocyte% 0.2 % (0-10); Neutrophil # 8.18 X10^3/uL (2.7-7.7); Neutrophil % 90.1 % (47-70); POSITIVE COUNT NO; POSITIVE MORPHOLOGY NO; Platelet Count 153 K/mm3 (150-450); RBC Distribution Width CV 16.6 % (11.6-14.6); RBC Distribution Width SD 47.5 fl (35.1-43.9); Red Blood Count 4.83 M/mm3 (4.2-5.4); White Blood Count 9.1 K/mm3 (4.4-11.0)
[2018-11-24 05:45] LABS: International Normalized Ratio 2.7; Prothrombin Time (Protime)PT. 28.9 SECONDS (11.7-14.9)
--- NOTE | 2018-11-24 05:55 | EKG12_ITS ---
Test Reason : AM Blood Pressure : / mmHG Vent. Rate : 048 BPM Atrial Rate : 048 BPM P-R Int : 180 ms QRS Dur : 088 ms QT Int : 582 ms P-R-T Axes : -20 107 117 degrees QTc Int : 519 ms Sinus bradycardia Rightward axis Nonspecific ST and T wave abnormality Abnormal ECG When compared with ECG of 23-NOV-2018 13:10, MANUAL COMPARISON REQUIRED, DATA IS UNCONFIRMED Confirmed by LOIDA SCANLON ([id number]), art editor ASUNCION BROWNLEE ([id number]) on 11/30/2018 2:25:15 PM Referred By: KORIN Confirmed By:ELSY SCANLON
[2018-11-24 06:00] LABS: Anion Gap 7 (5-15); BUN 46 mg/dL (7-18); BUN/Creat Ratio 20.4 RATIO (10-20); Calcium,Total 8.5 mg/dL (8.5-10.1); Chloride 104 mmol/L (98-107); Creatinine, Serum 2.25 mg/dL (0.55-1.02); EST Glomerular Filtration Rate 22 mL/min (>60); Est Glom Filt Rate - Afr Amer 27 mL/min (>60); Estimated Creatinine Clearance 16.56 ml/min; Glucose 293 mg/dL (74-106); Potassium 4.6 mmol/L (3.5-5.1); Sodium Level 139 mmol/L (136-145)
[2018-11-24 06:22] LABS: Differential Comment SCANNED; Differential Indicated SCAN CRITERIA MET; POSITIVE DIFFERENTIAL YES
[2018-11-24] MEDS: Ipratropium/Albuterol Sulfate 3 ML AMPUL.NEB INHALATION ×4 (06:48→22:38)
[2018-11-24] MEDS: Amiodarone 200 MG Tablet 100 MG PO (08:53)
[2018-11-24] MEDS: Losartan Potassium 50 MG Tablet PO (08:53)
[2018-11-24] MEDS: guaiFENesin 1,200 MG Tablet 1200 MG PO ×2 (08:53→22:09)
--- NOTE | 2018-11-24 09:53 | NURSING ---
wound photo: left dorsal foot
--- NOTE | 2018-11-24 09:54 | NURSING ---
wound photo: right great toe (plantar surface)
--- NOTE | 2018-11-24 09:55 | NURSING ---
wound photo: right 4th toe
--- NOTE | 2018-11-24 10:05 | CASEMGMT ---
Addendum entered by Nette Nicolas 11/24/18 11:42: 1017 This RN CM back to room to complete assessment and pt care is being completed at this time. Will attempt again later. [place] PORTILLO CM Original Note: This RN CM to room to complete CM assessment at this time and pt is on the phone at this time. Will attempt again later. [place] PORTILLO CM
--- NOTE | 2018-11-24 10:34 | CASEMGMT ---
Patient has a Healthcare POA and Healthcare LW on file. Beata [employer]
--- NOTE | 2018-11-24 11:44 | CASEMGMT ---
LINDSEY MONTEJO assessment: Face to Face with patient for initial transition planning/care coordination assessment. LINDSEY MONTEJO introduced self and role at [facility], pt voices understanding and consents to assessment at this time. Pt is sitting up in chair in no distress at this time. Pt is A/Ox4 at this time and answers all questions appropriately at this time. Care providers, pharmacy, and demographics verified at this time. PCP: Saige Specialists: carmela Dennis Pharmacy: [facility] Insurance: [facility] Prescription Benefit: [facility] Living Will/HPOA: Pt states has LW/HPOA and they are on file at [facility] at this time. Pt states that her , Chris, is HPOA. LNOK: Chris Rothman, ; Claudia Pimentel, sister in law Living Arrangements: Pt states lives with in 1 story home and states no concerns at home at this time. Pt states is usually independent with ADL's but her daughter and [id number] do help with laundry, if needed. Transportation: Pt states /family drive and states no transportation concerns at this time. DME/HHC: Pt states has the following DME: cane, walker, shower chair, grab bars, cpap, nebulizer, and home oxygen 2 liters thru [facility]. Pt states no need for any further DME at this time. Pt states has had [facility] in the past and currently has mobile lab to come draw her coumadin when it's needed. Pt states no hx of SNF in the past. Pt states no concerns with going home at time of discharge. Pt states is retired. Pt states does not smoke or drink ETOH. Pt states no further concerns/needs at this time. CM to follow PT/OT notes and for any further discharge planning/needs. Advised pt to ask for CM if any further questions/concerns/needs arise, voices understanding. Pt Goal: Home Plan: Home, pending PT/OT sagar. Raleigh PORTILLO CM
[2018-11-24 11:50] LABS: Bedside Glucose 425 mg/dL (70-110)
--- NOTE | 2018-11-24 12:22 | PCM.PROGNOTE ---
<Lisha Meneess - Last Filed: 11/24/18 12:39> Subjective: Patient reports mild improvement in shortness of breath. Continues to complain of productive cough. Denies fever, chills. Denies other current complaints. - Physical Exam General: Alert, Oriented x3, Cooperative HEENT: Atraumatic, PERRLA, EOMI, Normocephalic Neck: Supple, No JVD, Negative Carotid Bruits Lungs: Diminished, Wheezes Cardiovascular: Regular rate, Regular Rhythm, Normal S1, Normal S2 Abdomen: Bowel Sounds Present, Soft, Non Tender, Non-Distended Extremities: No clubbing, No cyanosis, Edema - Nonpitting bilateral lower extremities Skin: No rashes, No breakdown Musculoskeletal: No Tenderness to Palpation of Joints or Extremities Neurological: Cranial nerves II-XII grossly intact, Neuro grossly intact Psych/Mental Status: Normal Affect, Appropriate Vital Signs Temp Pulse Resp BP Pulse Ox 97.8 F 51 L 16 124/46 H 100 11/24/18 08:55 11/24/18 11:15 11/24/18 11:15 11/24/18 08:55 11/24/18 08:55 Oxygen Flow Rate (L/min) 2 Oxygen Delivery Method Nasal Cannula Weight: 172 lb 9.951 oz Body Mass Index (BMI) 30.3 Finger Stick Blood Glucose 257 Intake and Output for Last 24 Hours 11/22/18 11/23/18 11/24/18 23:59 23:59 23:59 Intake Total 100 / 100 380 / 380 Output Total 200 / 200 600 / 600 Balance -100 / -100 -220 / -220 Microbiology Past 72 Hours 11/23/18 19:50 Gram Stain - Final Sputum, Expectorated/Coughed 11/23/18 17:00 Respiratory Panel (PCR) - Final Mucosa - Nasopharyngeal Laboratory Tests Past 24 Hrs 11/23/18 11/23/18 11/23/18 12:55 12:55 12:55 WBC 10.1 RBC 4.83 Hgb 12.3 Hct 38.8 MCV 80.3 L MCH 25.5 L MCHC 31.7 L RDW 16.4 H RDW Differential 48.1 H Plt Count 146 L MPV 11.3 Immature Gran % (Auto) 0.200 Neut % (Auto) 76.9 H Lymph % (Auto) 10.8 L [place] % (Auto) 4.1 Eos % (Auto) 7.8 H Baso % (Auto) 0.2 Absolute Neuts (auto) 7.7 Absolute Lymphs (auto) 1.09 Total Counted Not Reportable Differential Comment PT 32.1 H INR 3.1 Specimen Type Sample Site pH Bicarbonate Actual POC Total CO2 Base Excess O2 Saturation ABG pCO2 ABG pO2 O2 Delivery Device Liter Flow Blood Gas Notified Whom Blood Gas Notified Time Sodium 137 Potassium 3.6 Chloride 101 Carbon Dioxide 34.0 H Anion Gap 2 L BUN 43 H Creatinine 2.03 H Estim Creat Clear Calc 19.20 Est GFR (MDRD) Af Amer 31 L Est GFR (MDRD) Non-Af 25 L BUN/Creatinine Ratio 21.2 H Glucose 420 H Calcium 8.3 L Troponin I 0.022 B-Natriuretic Peptide Urine Color Urine Clarity Urine pH Ur Specific [place] Urine Protein Urine Glucose (UA) Urine Ketones Urine Occult Blood Urine Nitrite Urine Bilirubin Urine Urobilinogen Ur Leukocyte Esterase Urine RBC Urine WBC Ur Squamous Epith Cells Urine Bacteria Urine Mucus 11/23/18 11/23/18 11/23/18 12:55 17:14 17:58 WBC RBC Hgb Hct MCV MCH MCHC RDW RDW Differential Plt Count MPV Immature Gran % (Auto) Neut % (Auto) Lymph % (Auto) [place] % (Auto) Eos % (Auto) Baso % (Auto) Absolute Neuts (auto) Absolute Lymphs (auto) Total Counted Differential Comment PT INR Specimen Type ART Sample Site R Radial pH 7.36 Bicarbonate Actual 27.6 H POC Total CO2 29 Base Excess 2 O2 Saturation 97 ABG pCO2 49.0 H ABG pO2 96 O2 Delivery Device Nasal Can Liter Flow 2.0 Blood Gas Notified Whom [facility] Blood Gas Notified Time 1714 Sodium Potassium Chloride Carbon Dioxide Anion Gap BUN Creatinine Estim Creat Clear Calc Est GFR (MDRD) Af Amer Est GFR (MDRD) Non-Af BUN/Creatinine Ratio Glucose Calcium Troponin I 0.027 B-Natriuretic Peptide 409.0 H Urine Color Urine Clarity Urine pH Ur Specific [place] Urine Protein Urine Glucose (UA) Urine Ketones Urine Occult Blood Urine Nitrite Urine Bilirubin Urine Urobilinogen Ur Leukocyte Esterase Urine RBC Urine WBC Ur Squamous Epith Cells Urine Bacteria Urine Mucus 11/23/18 11/23/18 11/24/18 19:50 20:57 05:25 WBC 9.1 RBC 4.83 Hgb 12.0 Hct 38.7 MCV 80.1 L MCH 24.8 L MCHC 31.0 L RDW 16.6 H RDW Differential 47.5 H Plt Count 153 MPV 11.5 Immature Gran % (Auto) 0.200 Neut % (Auto) 90.1 H Lymph % (Auto) 5.8 L [place] % (Auto) 0.2 Eos % (Auto) 3.4 Baso % (Auto) 0.3 Absolute Neuts (auto) 8.2 H Absolute Lymphs (auto) 0.53 L Total Counted Not Reportable Differential Comment SCANNED PT INR Specimen Type Sample Site pH Bicarbonate Actual POC Total CO2 Base Excess O2 Saturation ABG pCO2 ABG pO2 O2 Delivery Device Liter Flow Blood Gas Notified Whom Blood Gas Notified Time Sodium Potassium Chloride Carbon Dioxide Anion Gap BUN Creatinine Estim Creat Clear Calc Est GFR (MDRD) Af Amer Est GFR (MDRD) Non-Af BUN/Creatinine Ratio Glucose Calcium Troponin I 0.035 B-Natriuretic Peptide Urine Color Yellow Urine Clarity Clear Urine pH 5.0 Ur Specific [place] 1.015 Urine Protein 15 H Urine Glucose (UA) 1000 H Urine Ketones Negative Urine Occult Blood Negative Urine Nitrite Positive H Urine Bilirubin Negative Urine Urobilinogen Normal Ur Leukocyte Esterase 100 H Urine RBC 0 SEEN Urine WBC 5-10 SEEN Ur Squamous Epith Cells 0-5 SEEN Urine Bacteria 3+ Urine Mucus 0 SEEN 11/24/18 11/24/18 05:25 05:25 WBC RBC Hgb Hct MCV MCH MCHC RDW RDW Differential Plt Count MPV Immature Gran % (Auto) Neut % (Auto) Lymph % (Auto) [place] % (Auto) Eos % (Auto) Baso % (Auto) Absolute Neuts (auto) Absolute Lymphs (auto) Total Counted Differential Comment PT 28.9 H INR 2.7 Specimen Type Sample Site pH Bicarbonate Actual POC Total CO2 Base Excess O2 Saturation ABG pCO2 ABG pO2 O2 Delivery Device Liter Flow Blood Gas Notified Whom Blood Gas Notified Time Sodium 139 Potassium 4.6 Chloride 104 Carbon Dioxide 28.0 Anion Gap 7 BUN 46 H Creatinine 2.25 H Estim Creat Clear Calc 16.56 Est GFR (MDRD) Af Amer 27 L Est GFR (MDRD) Non-Af 22 L BUN/Creatinine Ratio 20.4 H Glucose 293 H Calcium 8.5 Troponin I B-Natriuretic Peptide Urine Color Urine Clarity Urine pH Ur Specific [place] Urine Protein Urine Glucose (UA) Urine Ketones Urine Occult Blood Urine Nitrite Urine Bilirubin Urine Urobilinogen Ur Leukocyte Esterase Urine RBC Urine WBC Ur Squamous Epith Cells Urine Bacteria Urine Mucus POC Glucose 11/24/18 11/24/18 11/23/18 11:26 05:15 22:01 POC Glucose 425 H 266 H 286 H 11/23/18 17:54 POC Glucose 404 H Medical Necessity - Tobacco Use Smoking Status: Never smoker Tobacco Use: Non-smoker, Secondhand Assessment/Plan 1. Acute on chronic hypoxic respiratory failure secondary to acute COPD exacerbation as well as probable acute on chronic diastolic CHF-patient chronically wears 2 L nasal cannula continuously at baseline. Continue supplement oxygen to maintain O2 at or above 90%. 2. Acute COPD exacerbation-continue IV Solu-Medrol. Albuterol and DuoNeb aerosol. Respiratory panel negative. Sputum culture pending however preliminary appears normal respiratory sofia. No antibiotics necessary at this time. 3. Acute on chronic diastolic CHF-BNP 409. Chest x-ray admission with mild degree of CHF. Discontinue IV Lasix given increasing creatinine. Continue home Lasix regimen 40 mg p.o. twice daily. 4. CAD status post CABG-continue aspirin, losartan. Not on statin. 5. Type 2 diabetes mellitus-elevated due to IV steroids. Accu-Cheks AC at bedtime with sliding scale insulin. Continue long-acting regimen. 6. Paroxysmal atrial fibrillation-continue amiodarone, Coumadin. 7. Hypertension-stable, continue losartan regimen. 8. Stage IV chronic kidney disease-follows with Dr. Ulloa. Fanny, trend BMP. 9. Status post mitral valve replacement with bioprosthetic valve-stable per echo May 2018. 10. Hypothyroidism-continue Synthroid regimen. 11. Chronic foot wounds- Wound RN consult. Dressing changes per wound RN orders. DVT prophylaxis-Coumadin This patient was seen by JOSE ANGEL Null under the supervision of Dr. Villarreal. <Vanessa Villarreal - Last Filed: 11/24/18 16:05> - Physical Exam Vital Signs Temp Pulse Resp BP Pulse Ox 98.0 F 57 L 12 143/46 H 99 11/24/18 15:23 11/24/18 15:23 11/24/18 15:23 11/24/18 15:23 11/24/18 15:23 Oxygen Flow Rate (L/min) 2 Oxygen Delivery Method Nasal Cannula Weight: 78.3 kg Body Mass Index (BMI) 30.3 Finger Stick Blood Glucose 257 Intake and Output for Last 24 Hours 11/22/18 11/23/18 11/24/18 23:59 23:59 23:59 Intake Total 100 / 100 380 / 380 Output Total 200 / 200 600 / 600 Balance -100 / -100 -220 / -220 Microbiology Past 72 Hours 11/23/18 19:50 Gram Stain - Final Sputum, Expectorated/Coughed 11/23/18 17:00 Respiratory Panel (PCR) - Final Mucosa - Nasopharyngeal Laboratory Tests Past 24 Hrs 11/23/18 11/23/18 11/23/18 12:55 17:14 17:58 WBC RBC Hgb Hct MCV MCH MCHC RDW RDW Differential Plt Count MPV Immature Gran % (Auto) Neut % (Auto) Lymph % (Auto) [place] % (Auto) Eos % (Auto) Baso % (Auto) Absolute Neuts (auto) Absolute Lymphs (auto) Total Counted Differential Comment PT INR Specimen Type ART Sample Site R Radial pH 7.36 Bicarbonate Actual 27.6 H POC Total CO2 29 Base Excess 2 O2 Saturation 97 ABG pCO2 49.0 H ABG pO2 96 O2 Delivery Device Nasal Can Liter Flow 2.0 Blood Gas Notified Whom HOS[facility] Blood Gas Notified Time 1714 Sodium Potassium Chloride Carbon Dioxide Anion Gap BUN Creatinine Estim Creat Clear Calc Est GFR (MDRD) Af Amer Est GFR (MDRD) Non-Af BUN/Creatinine Ratio Glucose Calcium Troponin I 0.027 B-Natriuretic Peptide 409.0 H Urine Color Urine Clarity Urine pH Ur Specific [place] Urine Protein Urine Glucose (UA) Urine Ketones Urine Occult Blood Urine Nitrite Urine Bilirubin Urine Urobilinogen Ur Leukocyte Esterase Urine RBC Urine WBC Ur Squamous Epith Cells Urine Bacteria Urine Mucus 11/23/18 11/23/18 11/24/18 19:50 20:57 05:25 WBC 9.1 RBC 4.83 Hgb 12.0 Hct 38.7 MCV 80.1 L MCH 24.8 L MCHC 31.0 L RDW 16.6 H RDW Differential 47.5 H Plt Count 153 MPV 11.5 Immature Gran % (Auto) 0.200 Neut % (Auto) 90.1 H Lymph % (Auto) 5.8 L [place] % (Auto) 0.2 Eos % (Auto) 3.4 Baso % (Auto) 0.3 Absolute Neuts (auto) 8.2 H Absolute Lymphs (auto) 0.53 L Total Counted Not Reportable Differential Comment SCANNED PT INR Specimen Type Sample Site pH Bicarbonate Actual POC Total CO2 Base Excess O2 Saturation ABG pCO2 ABG pO2 O2 Delivery Device Liter Flow Blood Gas Notified Whom Blood Gas Notified Time Sodium Potassium Chloride Carbon Dioxide Anion Gap BUN Creatinine Estim Creat Clear Calc Est GFR (MDRD) Af Amer Est GFR (MDRD) Non-Af BUN/Creatinine Ratio Glucose Calcium Troponin I 0.035 B-Natriuretic Peptide Urine Color Yellow Urine Clarity Clear Urine pH 5.0 Ur Specific [place] 1.015 Urine Protein 15 H Urine Glucose (UA) 1000 H Urine Ketones Negative Urine Occult Blood Negative Urine Nitrite Positive H Urine Bilirubin Negative Urine Urobilinogen Normal Ur Leukocyte Esterase 100 H Urine RBC 0 SEEN Urine WBC 5-10 SEEN Ur Squamous Epith Cells 0-5 SEEN Urine Bacteria 3+ Urine Mucus 0 SEEN 11/24/18 11/24/18 05:25 05:25 WBC RBC Hgb Hct MCV MCH MCHC RDW RDW Differential Plt Count MPV Immature Gran % (Auto) Neut % (Auto) Lymph % (Auto) [place] % (Auto) Eos % (Auto) Baso % (Auto) Absolute Neuts (auto) Absolute Lymphs (auto) Total Counted Differential Comment PT 28.9 H INR 2.7 Specimen Type Sample Site pH Bicarbonate Actual POC Total CO2 Base Excess O2 Saturation ABG pCO2 ABG pO2 O2 Delivery Device Liter Flow Blood Gas Notified Whom Blood Gas Notified Time Sodium 139 Potassium 4.6 Chloride 104 Carbon Dioxide 28.0 Anion Gap 7 BUN 46 H Creatinine 2.25 H Estim Creat Clear Calc 16.56 Est GFR (MDRD) Af Amer 27 L Est GFR (MDRD) Non-Af 22 L BUN/Creatinine Ratio 20.4 H Glucose 293 H Calcium 8.5 Troponin I B-Natriuretic Peptide Urine Color Urine Clarity Urine pH Ur Specific [place] Urine Protein Urine Glucose (UA) Urine Ketones Urine Occult Blood Urine Nitrite Urine Bilirubin Urine Urobilinogen Ur Leukocyte Esterase Urine RBC Urine WBC Ur Squamous Epith Cells Urine Bacteria Urine Mucus POC Glucose 11/24/18 11/24/18 11/23/18 11:26 05:15 22:01 POC Glucose 425 H 266 H 286 H 11/23/18 17:54 POC Glucose 404 H Assessment/Plan This patient was seen in conjunction with Lisha Meneses NP. I have independently interviewed and examined the patient and reviewed pertinent historical, laboratory, and other data. Please refer to her note for patient's presentation, findings, and recommendations. 78-year-old with past medical history of diastolic CHF, CAD status post CABG, type II DM, paroxysmal atrial fibrillation on Coumadin who comes in with complaints of shortness of breath. Patient was found to be saturating 78% on 2 L. EMS was called. She was started on CPAP. Vitals appear stable in the ED. She had wheezes. Labs were unremarkable except for CKD and elevated blood sugar. Management has been for acute on chronic hypoxic respiratory failure second to acute COPD exacerbation. Patient appears to have improved, on 4 L of oxygen Vitals were reviewed -stable -blood pressure 143/46, heart rate 57, temperature 90 8F, respiratory rate 12, SPO2 99% on 2 L Physical Exam: Gen: Appears comfortable, on 2 L oxygen, not in respiratory distress not pale, not jaundiced, alert oriented x3 CVS:HS I +II, regular, no murmurs RESP: Diminished all over the lungs with wheezes GI: BS present and normal, nontender, no palpable organs EXT: Bilateral leg edema, +1 to +2, chronic venous stasis changes to the skin Labs reviewed -INR was 2.7, creatinine is 2.25, troponins are marginally elevated Sugars are uncontrolled secondary to steroids ASSESSMENT: 1. Acute on chronic hypoxic respiratory failure 2. Acute COPD exacerbation 3. Probable acute on chronic diastolic CHF 4. CAD status post CABG 5. Type II DM 6. Paroxysmal atrial fibrillation 7. Hypertension 8. Stage IV CKD 9. Status post bioprosthetic mitral valve replacement 10. Hypothyroidism Meds reviewed Plan: Increase Lantus to 55 units daily with insulin sliding scale Continue on Lasix 40 mg p.o. twice daily Strict I's and O's, CHF protocol Continue with breathing treatments and IV steroids Code Visit Inpatient E&M: 70720 [facility] Hosp L2
--- NOTE | 2018-11-24 15:49 | CHAPLAIN ---
Type of Pastoral Visit _x__ Initial Visit ___ Follow-up Visit ___ On-call Visit ___ General Patient Visit ___ Spiritual Assessment ___ Family Conference ___ Bereavement ___ Rapid Response ___ Code Blue ___ Other (describe below) Pastoral Care Referral From _x__ Patient ___ Family ___ Nurse ___ Physician ___ Comprehensive Ophthalmologist ___ Colliery Clerk ___ Other (describe below) Sacrament/Intervention _x__ Active listening ___ Anointing ___ Latter Day ___ Bereavement ___ Communion _x__ Sara exploration ___ _x__ Life review _x__ Prayer ___ Reconciliation ___ Sacrament of Sick _x__ Supportive presence ___ Wedding ___ Other (describe below) Pastoral Comments anxiety, end of life questions, family issues, and spiritual needs addressed
[2018-11-24] MEDS: Furosemide 40 MG Tablet PO (16:46)
[2018-11-24 17:06] LABS: Bedside Glucose 487 mg/dL (70-110)
[2018-11-24 17:40] LABS: Bedside Glucose 449 mg/dL (70-110)
[2018-11-24] MEDS: Insulin Lispro 100 UNIT/ML INSULN.PEN 20 UNIT SC (18:13)
[2018-11-24 21:36] LABS: Bedside Glucose 398 mg/dL (70-110)
[2018-11-24] MEDS: Aspirin E.C. 81 MG Tablet PO (22:09)
[2018-11-24 22:30] LABS: Bedside Glucose 365 mg/dL (70-110)
[2018-11-25] VITALS (18 sets, daily range): BP systolic 122–152; BP diastolic 56–89; PULSE 51–79; RESP 16–20; TEMP 35.7–36.6; O2SAT 95–100
[2018-11-25] MEDS: Ipratropium/Albuterol Sulfate 3 ML AMPUL.NEB INHALATION ×6 (03:09→23:24)
[2018-11-25 03:55] LABS: Bedside Glucose 296 mg/dL (70-110)
[2018-11-25 05:52] LABS: Anion Gap 8 (5-15); BUN 72 mg/dL (7-18); BUN/Creat Ratio 29.1 RATIO (10-20); Calcium,Total 8.6 mg/dL (8.5-10.1); Chloride 99 mmol/L (98-107); Creatinine, Serum 2.47 mg/dL (0.55-1.02); EST Glomerular Filtration Rate 20 mL/min (>60); Est Glom Filt Rate - Afr Amer 24 mL/min (>60); Estimated Creatinine Clearance 15.09 ml/min; Glucose 312 mg/dL (74-106); Potassium 4.6 mmol/L (3.5-5.1); Sodium Level 135 mmol/L (136-145)
[2018-11-25 06:00] LABS: International Normalized Ratio 2.4; Prothrombin Time (Protime)PT. 26.4 SECONDS (11.7-14.9)
[2018-11-25] MEDS: Levothyroxine 88 MCG Tablet PO (06:47)
[2018-11-25] MEDS: Insulin Lispro 100 UNIT/ML INSULN.PEN SC ×5 (06:48→21:48)
[2018-11-25] MEDS: 0.9% NaCl Peripheral Flush Adult/Peds IV ×3 (06:51→21:51)
[2018-11-25 07:01] LABS: Bedside Glucose 301 mg/dL (70-110)
--- NOTE | 2018-11-25 08:07 | CPS ---
Patient is refusing PEP Therapy, she stated she does not like the newer type that is available now, and has the older type at home.
[2018-11-25] MEDS: guaiFENesin 1,200 MG Tablet 1200 MG PO ×2 (08:14→21:50)
[2018-11-25] MEDS: Amiodarone 200 MG Tablet 100 MG PO (08:14)
[2018-11-25] MEDS: Losartan Potassium 50 MG Tablet PO (08:14)
[2018-11-25] MEDS: Furosemide 40 MG Tablet PO (08:15)
--- NOTE | 2018-11-25 11:09 | PCM.PROGNOTE ---
<Lisha Meneses - Last Filed: 11/25/18 11:21> Subjective: Patient seen and examined. She reports improvement in breathing overall. Does reports intermittent episodes of shortness of breath and wheezing, worse with ambulating. Also reports intermittent coughing fits. Nonproductive cough. Denies fever, chills. - Physical Exam General: Alert, Oriented x3, Cooperative HEENT: Atraumatic, PERRLA, EOMI, Normocephalic Neck: Supple, No JVD, Negative Carotid Bruits Lungs: Diminished, Wheezes Cardiovascular: Regular Rhythm, Normal S1, Normal S2, No murmurs, Bradycardic Abdomen: Bowel Sounds Present, Soft, Non Tender, Non-Distended Extremities: No clubbing, No cyanosis, No edema, Capillary Refill Less than 3 Seconds Skin: No rashes, No breakdown Musculoskeletal: No Tenderness to Palpation of Joints or Extremities Neurological: Cranial nerves II-XII grossly intact, Neuro grossly intact Psych/Mental Status: Normal Affect, Appropriate Vital Signs Temp Pulse Resp BP Pulse Ox 97.2 F L 58 L 16 152/62 H 100 11/25/18 09:50 11/25/18 09:50 11/25/18 09:50 11/25/18 09:50 11/25/18 09:50 Oxygen Flow Rate (L/min) 2 Oxygen Delivery Method Nasal Cannula Weight: 174 lb 13.225 oz Body Mass Index (BMI) 30.3 Finger Stick Blood Glucose 257 Intake and Output for Last 24 Hours 11/23/18 11/24/18 11/25/18 23:59 23:59 23:59 Intake Total 100 / 100 860 / 860 Output Total 200 / 200 1550 / 1550 175 / 175 Balance -100 / -100 -690 / -690 -175 / -175 Microbiology Past 72 Hours 11/23/18 19:50 Gram Stain - Final Sputum, Expectorated/Coughed 11/23/18 17:00 Respiratory Panel (PCR) - Final Mucosa - Nasopharyngeal Laboratory Tests Past 24 Hrs 11/25/18 11/25/18 05:04 05:04 PT 26.4 H INR 2.4 Sodium 135 L Potassium 4.6 Chloride 99 Carbon Dioxide 28.0 Anion Gap 8 BUN 72 H Creatinine 2.47 H Estim Creat Clear Calc 15.09 Est GFR (MDRD) Af Amer 24 L Est GFR (MDRD) Non-Af 20 L BUN/Creatinine Ratio 29.1 H Glucose 312 H Calcium 8.6 POC Glucose 11/25/18 11/25/18 11/24/18 06:46 03:47 22:07 POC Glucose 301 H 296 H 365 H 11/24/18 11/24/18 11/24/18 20:28 17:36 16:44 POC Glucose 398 H 449 H 487 H* 11/24/18 11:26 POC Glucose 425 H Medical Necessity - Tobacco Use Smoking Status: Never smoker Tobacco Use: Non-smoker, Secondhand Assessment/Plan 1. Acute on chronic hypoxic respiratory failure secondary to acute COPD exacerbation as well as probable acute on chronic diastolic CHF-patient chronically wears 2 L nasal cannula continuously at baseline. Continue supplement oxygen to maintain O2 at or above 90%. 2. Acute COPD exacerbation-continue IV Solu-Medrol. Albuterol and DuoNeb aerosol. Respiratory panel negative. Sputum culture pending however preliminary appears normal respiratory sofia. No antibiotics necessary at this time. 3. Acute on chronic diastolic CHF-BNP 409. Chest x-ray admission with mild degree of CHF. IV Lasix previously discontinued. Given increasing creatinine, home Lasix regimen decreased to 20 mg twice daily. 4. CAD status post CABG-continue aspirin, losartan. Not on statin. 5. Type 2 diabetes mellitus-elevated due to IV steroids. Accu-Cheks AC at bedtime with sliding scale insulin. Continue long-acting regimen. 6. Paroxysmal atrial fibrillation-continue amiodarone, Coumadin. 7. Hypertension-stable, continue losartan regimen. 8. Stage IV chronic kidney disease-follows with Dr. Ulloa. Fanny, trend BMP. 9. Status post mitral valve replacement with bioprosthetic valve-stable per echo May 2018. 10. Hypothyroidism-continue Synthroid regimen. 11. Chronic foot wounds- Wound RN consult. Dressing changes per wound RN orders. DVT prophylaxis-Coumadin Discharge planning: Continue IV steroids today, anticipate discharge home tomorrow. Walking pulse ox prior to discharge. Outpatient follow-up with pulmonary medicine. This patient was seen by JOSE ANGEL Null under the supervision of Dr. Villarreal. <Vanessa Villarreal - Last Filed: 11/25/18 14:31> - Physical Exam Vital Signs Temp Pulse Resp BP Pulse Ox 97.2 F L 58 L 16 152/62 H 100 11/25/18 09:50 11/25/18 09:50 11/25/18 09:50 11/25/18 09:50 11/25/18 09:50 Oxygen Flow Rate (L/min) 2 Oxygen Delivery Method Nasal Cannula Weight: 79.3 kg Body Mass Index (BMI) 30.3 Finger Stick Blood Glucose 257 Intake and Output for Last 24 Hours 11/23/18 11/24/18 11/25/18 23:59 23:59 23:59 Intake Total 100 / 100 860 / 860 240 / 240 Output Total 200 / 200 1550 / 1550 375 / 375 Balance -100 / -100 -690 / -690 -135 / -135 Microbiology Past 72 Hours 11/23/18 19:50 Gram Stain - Final Sputum, Expectorated/Coughed 11/23/18 17:00 Respiratory Panel (PCR) - Final Mucosa - Nasopharyngeal Laboratory Tests Past 24 Hrs 11/25/18 11/25/18 11/25/18 05:04 05:04 12:40 PT 26.4 H INR 2.4 Sodium 135 L Potassium 4.6 Chloride 99 Carbon Dioxide 28.0 Anion Gap 8 BUN 72 H Creatinine 2.47 H Estim Creat Clear Calc 15.09 Est GFR (MDRD) Af Amer 24 L Est GFR (MDRD) Non-Af 20 L BUN/Creatinine Ratio 29.1 H Glucose 312 H 475 H* Calcium 8.6 POC Glucose 11/25/18 11/25/18 11/25/18 13:37 12:07 06:46 POC Glucose > 500 H* 496 H* 301 H 11/25/18 11/24/18 11/24/18 03:47 22:07 20:28 POC Glucose 296 H 365 H 398 H 11/24/18 11/24/18 17:36 16:44 POC Glucose 449 H 487 H* Assessment/Plan This patient was seen in conjunction with Lisha Meneses NP. I have independently interviewed and examined the patient and reviewed pertinent historical, laboratory, and other data. Please refer to her note for patient's presentation, findings, and recommendations. Patient was seen and examined. She is still very wheezy. Requirements have improved to 2 L. But she is very wheezy on movement. Vitals were reviewed -stable Physical Exam: Gen: Appears comfortable, on 2 L oxygen, not in respiratory distress not pale, not jaundiced, alert oriented x3 CVS:HS I +II, regular, no murmurs RESP: Diminished all over the lungs with wheezes GI: BS present and normal, nontender, no palpable organs EXT: Bilateral leg edema, +1 to +2, chronic venous stasis changes to the skin Labs reviewed -INR was 2.4, creatinine is 2.47, troponins are marginally elevated Sugars are uncontrolled secondary to steroids ASSESSMENT: 1. Acute on chronic hypoxic respiratory failure 2. Acute COPD exacerbation 3. Probable acute on chronic diastolic CHF 4. CAD status post CABG 5. Type II DM 6. Paroxysmal atrial fibrillation 7. Hypertension 8. Stage IV CKD, slight increase in creatinine secondary to diuretics 9. Status post bioprosthetic mitral valve replacement 10. Hypothyroidism Meds reviewed Plan: Changes made to Lantus, as well as insulin sliding scale and start premeal insulin Continue on Lasix 20 mg p.o. twice daily Strict I's and O's, CHF protocol Continue with breathing treatments and IV steroids Pulmo consult Code Visit Inpatient E&M: 67770 Subs Hosp L2
[2018-11-25 12:15] LABS: Bedside Glucose 496 mg/dL (70-110)
[2018-11-25 13:06] LABS: Glucose 475 mg/dL (74-106)
[2018-11-25 13:46] LABS: Bedside Glucose > 500 mg/dL (70-110)
[2018-11-25] MEDS: Insulin Lispro 100 UNIT/ML INSULN.PEN 20 UNIT SC (15:08)
[2018-11-25] MEDS: Benzonatate 100 MG Capsule PO (17:08)
[2018-11-25] MEDS: Furosemide 20 MG Tablet PO (17:15)
[2018-11-25 17:16] LABS: Bedside Glucose 459 mg/dL (70-110)
[2018-11-25 21:41] LABS: Bedside Glucose 338 mg/dL (70-110)
[2018-11-25 21:41] LABS: Bedside Glucose 477 mg/dL (70-110)
[2018-11-25] MEDS: Aspirin E.C. 81 MG Tablet PO (21:48)
[2018-11-25 22:06] LABS: Bedside Glucose 358 mg/dL (70-110)
[2018-11-26] VITALS (9 sets, daily range): BP systolic 133–149; BP diastolic 48–60; PULSE 61–67; RESP 16–18; TEMP 36.4–36.6; O2SAT 98–100
[2018-11-26] MEDS: Ipratropium/Albuterol Sulfate 3 ML AMPUL.NEB INHALATION ×3 (03:21→11:07)
[2018-11-26 06:08] LABS: Anion Gap 9 (5-15); BUN 95 mg/dL (7-18); BUN/Creat Ratio 34.1 RATIO (10-20); Calcium,Total 8.6 mg/dL (8.5-10.1); Chloride 99 mmol/L (98-107); Creatinine, Serum 2.79 mg/dL (0.55-1.02); EST Glomerular Filtration Rate 18 mL/min (>60); Est Glom Filt Rate - Afr Amer 21 mL/min (>60); Estimated Creatinine Clearance 13.36 ml/min; Glucose 326 mg/dL (74-106); Potassium 5.1 mmol/L (3.5-5.1); Sodium Level 133 mmol/L (136-145)
[2018-11-26] MEDS: 0.9% NaCl Peripheral Flush Adult/Peds IV ×3 (06:24→13:57)
[2018-11-26] MEDS: Levothyroxine 88 MCG Tablet PO (06:24)
[2018-11-26 06:41] LABS: Bedside Glucose 303 mg/dL (70-110)
[2018-11-26] MEDS: Amiodarone 200 MG Tablet 100 MG PO (09:14)
[2018-11-26] MEDS: Losartan Potassium 50 MG Tablet PO (09:14)
[2018-11-26] MEDS: Furosemide 20 MG Tablet PO (09:15)
[2018-11-26] MEDS: guaiFENesin 1,200 MG Tablet 1200 MG PO (09:15)
[2018-11-26] MEDS: Insulin Lispro 100 UNIT/ML INSULN.PEN SC ×4 (09:17→11:29)
[2018-11-26] MEDS: Magnesium Hydroxide 30 ML UDC PO (09:34)
[2018-11-26] MEDS: Benzonatate 100 MG Capsule PO (09:34)
--- NOTE | 2018-11-26 11:17 | CON.PCM_ITS ---
Problem List (1) Peripheral arterial disease Status: Chronic (2) Chronic hypoxemic respiratory failure Status: Chronic (3) CAD (coronary artery disease) Status: Chronic Qualifiers: (4) S/P PTCA (percutaneous transluminal coronary angioplasty) Status: Chronic (5) S/P CABG x 1 Status: Chronic (6) Paroxysmal atrial fibrillation Status: Chronic (7) S/P CABG x 1 Status: Chronic Comment: 09/29/2014 CABG: SVG to distal LAD [place] per Dr. Miller (8) History of maze procedure Status: Chronic Comment: 09/29/2014 atricure pulmonary vein isolation MAZE with ligation of left atrial appendage per Dr. Angela Alexis (9) History of mitral valve replacement with bioprosthetic valve Status: Chronic Comment: 09/29/2014: MVR with 27 mm Medtronic tisue valve per Dr. Angela Alexis (10) Hyperlipidemia Status: Chronic Qualifiers: (11) Hypertension Status: Chronic Qualifiers: Comment: resistant HTN (12) Cerebrovascular disease Status: Chronic Comment: ischemic stroke w hemorrhagic transformation in the setting of coumadin anticoagulation (13) Anticoagulation goal of INR 2 to 3 Status: Chronic (14) Diabetes mellitus type II, uncontrolled Status: Chronic (15) Chronic diastolic heart failure Status: Chronic (16) Pulmonary hypertension Status: Chronic (17) MAGALI (obstructive sleep apnea) Status: Chronic Comment: on CPAP Reason for Consult Date of Consultation: 11/26/18 Reason for Consultation: Dyspnea History of Present Illness: The patient is a 78 year old F, with past medical history listed below and well- known to me from the outpatient arena and previous admissions, who presented to [facility] on 11/23/2018 secondary to worsening shortness of breath. Patient states that she had a sudden onset of symptoms approximately 1 hour prior to arrival to the ER. Patient states that she was having a cough productive of clear sputum and developed significant wheezing. Patient had attempted bronchodilator therapy without improvement. On arrival to the emergency room, patient was 70% on her baseline 2 L nasal cannula oxygen. Patient had noted a mild increase in lower extremity edema, but does have orthopnea at baseline. Patient denied any fevers or chills. In the emergency department, patient was noted to be tachypneic and tachycardic. Patient was placed on CPAP by EMS, received Solu-Medrol, Lasix and DuoNeb. Patient's blood sugar was elevated at 420. Chest x-ray had shown some minimal bibasilar vascular congestion with some cephalization. EKG had showed no acute ischemic changes. Patient was admitted to the floor for further evaluation. Since being admitted to the hospital, patient reports subjective improvement in overall condition. Patient did have a significant worsening of symptoms at approximately 10 PM on the day of admission. Patient states this persisted throughout the day yesterday, but upon waking up this morning is subjectively much improved compared to previous. Patient does admit that she did not walk around much yesterday secondary to shortness of breath. Patient denies any palpitations, nausea, vomiting or aspiration events. Patient feels she is at her baseline at this time, but is not actively walking around. No fevers been noted. Review of systems otherwise negative x10 systems. Past Medical History Past Medical History (Chronic Problems): Chronic Problems (Last Updated 11/23/18 @ 15:49 by Dejah Singh MD) Chronic ulcer of right great toe with fat layer exposed (Chronic) Traumatic ulcer of left foot with fat layer exposed (Chronic) Peripheral arterial disease (Chronic) Chronic hypoxemic respiratory failure (Chronic) CAD (coronary artery disease) (Chronic) S/P PTCA (percutaneous transluminal coronary angioplasty) (Chronic) S/P CABG x 1 (Chronic) S/P left atrial appendage ligation (Chronic) Subdural bleeding (Chronic) Mitral stenosis (Chronic) Paroxysmal atrial fibrillation (Chronic) Depression (Chronic) S/P CABG x 1 (Chronic 09/29/14) 09/29/2014 CABG: SVG to distal LAD [place] per Dr. Miller 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 Angela Alexis History of mitral valve replacement with bioprosthetic valve (Chronic 09/29/14) 09/29/2014: MVR with 27 mm Medtronic tisue valve per Dr. Angela Alexis Hyperlipidemia (Chronic) Hypertension (Chronic) resistant HTN Cerebrovascular disease (Chronic) ischemic stroke w hemorrhagic transformation in the setting of coumadin ant icoagulation Anemia (Chronic) CRF (chronic renal failure) (Chronic) Anticoagulation goal of INR 2 to 3 (Chronic) Diabetes mellitus type II, uncontrolled (Chronic) Stroke with left visual deficit (Chronic) Chronic diastolic heart failure (Chronic) Pulmonary hypertension (Chronic) MAGALI (obstructive sleep apnea) (Chronic) on CPAP Medical History: Medical History (Last Updated 11/23/18 @ 15:49 by Dejah Singh MD) Subdural bleeding (Chronic) I62.00 Mitral stenosis (Chronic) I05.0 Paroxysmal atrial fibrillation (Chronic) I48.0 Depression (Chronic) F32.9 Hyperlipidemia (Chronic) E78.5 Hypertension (Chronic) I10 resistant HTN Cerebrovascular disease (Chronic) I67.9 ischemic stroke w hemorrhagic transformation in the setting of coumadin antic oagulation Anemia (Chronic) D64.9 CRF (chronic renal failure) (Chronic) N18.9 Anticoagulation goal of INR 2 to 3 (Chronic) Z51.81, Z79.01 Diabetes mellitus type II, uncontrolled (Chronic) E11.65 Stroke with left visual deficit (Chronic) Chronic diastolic heart failure (Chronic) I50.32 Pulmonary hypertension (Chronic) I27.20 MAGALI (obstructive sleep apnea) (Chronic) G47.33 on CPAP Dyspnea on exertion R06.09 Edema R60.9 Pulmonary hypertension, moderate to severe I27.20 Shortness of breath R06.02 Allergies dronedarone [From Multaq] Allergy (Severe, Verified 10/19/18 13:38) difficulty breathing dronedarone HCl [From Multaq] Allergy (Verified 10/19/18 13:38) Other unable to breath levofloxacin [From Levaquin] Adverse Reaction (Severe, Verified 10/19/18 13:46) hallucinations, hot flashes quinapril [From Accupril] Adverse Reaction (Severe, Verified 10/19/18 13:38) near syncope cortisone Adverse Reaction (Intermediate, Verified 10/19/18 13:38) swelling hydralazine Adverse Reaction (Intermediate, Verified 10/19/18 13:38) weakness Beta-Blockers (Beta-Adrenergic Bloc Adverse Reaction (Verified 10/19/18 13:38) Other WHEEZING, shaking, passes out CARDURA Allergy (Uncoded 10/19/18 13:38) Other PT NOT SURE- POSSIBLE SWELLING NORVASC Allergy (Uncoded 10/19/18 13:38) Swelling SCALLOPS Allergy (Uncoded 10/19/18 13:38) Swelling SULFA Allergy (Uncoded 10/19/18 13:38) Other SPOTS IN MOUTH/SORE MOUTH ATIVAN Adverse Reaction (Uncoded 10/19/18 13:38) Other HALLUCINATIONS METATOPOLOL TARTATE Adverse Reaction (Uncoded 10/19/18 13:38) Other Home Medications: Ambulatory Orders Medication Instructions Recorded Albuterol Inhaler [Ventolin Hfa] 2 puff INHALATION Q4H PRN PRN #1 10/27/14 inhaler Aspirin E.C. [Ecotrin] 81 mg PO QHS 01/07/18 Albuterol Aerosols [Ventolin 3 ml INHALATION BID 06/22/18 Aerosols] Amiodarone HCl 100 mg PO DAILY 06/22/18 Multivit-Min/Iron/Folic/Lutein 1 tab PO DAILY 06/22/18 [Centrum Silver Women Tablet] levothyroxine 88 mcg tablet 88 mcg PO DAILY 30 Days #90 tab 07/27/18 insulin glargine (U-100) 100 50 unit SC DAILY ml 09/29/18 unit/mL (3 mL) subcutaneous pen insulin lispro (U- 100) 100 See Protocol SC .with meals ml 09/29/18 unit/mL subcutaneous pen Acetaminophen [Tylenol] 500 mg PO Q8 PRN 11/23/18 Acyclovir [Zovirax] 1 applic TOPICAL 5X/DAY 11/23/18 Lecithin, Soy [Lecithin] 1,200 mg PO DAILY 11/23/18 Losartan Potassium [Cozaar] 50 mg PO DAILY 11/23/18 Umeclidinium Brm/Vilanterol Tr 1 inh INHALATION Q24H 11/23/18 [Anoro Ellipta 62.5-25 Mcg INH] Warfarin Sodium 3 mg PO SUTHFRSA 11/23/18 Warfarin Sodium [Coumadin] 4 mg PO MOTUWE 11/23/18 Calcitriol [Rocaltrol] 0.25 mcg PO MOWEFR capsule 11/25/18 Furosemide [Lasix] 20 mg PO BIDLX #60 tablet 11/25/18 Prednisone See Rx Instructions PO .COMPLEX 11/25/18 PRN #30 tab Surgical History: Surgical History (Last Updated 11/23/18 @ 15:49 by Dejah Singh MD) S/P CABG x 1 (Chronic) Onset Date: 09/29/14 Z95.1 09/29/2014 CABG: SVG to distal LAD [place] per Dr. Miller History of maze procedure (Chronic) Onset Date: 09/29/14 Z98.890 09/29/2014 atricure pulmonary vein isolation MAZE with ligation of left atrial appendage per Dr. Angela Alexis History of mitral valve replacement with bioprosthetic valve (Chronic) Onset Date: 09/29/14 Z95.3 09/29/2014: MVR with 27 mm Medtronic tisue valve per Dr. 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 Lives: Spouse/ Significant Other Smoking Status: Never smoker Tobacco Use: Non-smoker, Secondhand - *Family History Maternal Family History: Family History (Last Reviewed 11/02/18 @ 15:10 by Bridget Lu) Father CAD (coronary artery disease) Hypertension Myocardial infarction Sudden cardiac Hyperlipidemia Mother Breast cancer Brother Cancer Sister Breast cancer Hyperlipidemia Sister Hyperlipidemia History Items: Cancer Paternal Family History: Family History (Last Reviewed 11/02/18 @ 15:10 by Bridget Lu) Father CAD (coronary artery disease) Hypertension Myocardial infarction Sudden cardiac Hyperlipidemia Mother Breast cancer Brother Cancer Sister Breast cancer Hyperlipidemia Sister Hyperlipidemia History Items: Heart Disease, Stroke Sibling Family History: Family History (Last Reviewed 11/02/18 @ 15:10 by Bridget Lu) Father CAD (coronary artery disease) Hypertension Myocardial infarction Sudden cardiac Hyperlipidemia Mother Breast cancer Brother Cancer Sister Breast cancer Hyperlipidemia Sister Hyperlipidemia History Items: Cancer - in brother and sister Review of Systems Comment: See HPI Objective: Chest x-ray was personally reviewed and does show some cephalization. - Physical Exam General: Alert, Oriented x3, Cooperative, No apparent distress, - - Appears older than stated age. No conversational dyspnea at this time. Supplemental oxygen in place. HEENT: Atraumatic, PERRLA, EOMI, Normocephalic, - - Slight scleral injection Oral: Moist Mucosa, No Gingival or Mucosal Lesions/ Ulcerations Neck: Supple, No JVD, No Nodes, Trachea Midline Lungs: No rhonchi, No wheeze, No rales, Diminished, - - Symmetric expansion. No dullness to percussion. Cardiovascular: Regular rate, Regular Rhythm, Normal S1, Normal S2, No murmurs, No rub noted, No Gallop, - - Hours of telemetry were reviewed. Some bradycardia noted, but no A. fib with RVR or V. tach appreciated. Abdomen: Bowel Sounds Present, Soft, Non Tender, Non-Distended, Obese Extremities: No cyanosis, Capillary Refill Less than 3 Seconds, Edema Skin: No rashes, No breakdown Musculoskeletal: No Tenderness to Palpation of Joints or Extremities Lymphatic: No Cervical, Supraclavicular, or Inguinal Adenopathy Neurological: Cranial nerves II-XII grossly intact, Neuro grossly intact, Motor Exam 5/5 strength throughout Psych/Mental Status: Alert and oriented to time, place, person, mood and affect Vital Signs Temp Pulse Resp BP Pulse Ox 36.6 C 62 18 133/48 H 99 11/26/18 09:09 11/26/18 09:09 11/26/18 09:09 11/26/18 09:09 11/26/18 09:09 Oxygen Flow Rate (L/min) 1 Oxygen Delivery Method Nasal Cannula Weight: 79.3 kg Body Mass Index (BMI) 30.3 Finger Stick Blood Glucose 257 Intake and Output for Last 24 Hours 11/24/18 11/25/18 11/26/18 23:59 23:59 23:59 Intake Total 860 / 860 510 / 510 30 / 30 Output Total 1550 / 1550 375 / 375 Balance -690 / -690 135 / 135 30 / 30 Microbiology Past 72 Hours 11/23/18 19:50 Gram Stain - Final Sputum, Expectorated/Coughed Respiratory Culture - Final 11/23/18 17:00 Respiratory Panel (PCR) - Final Mucosa - Nasopharyngeal Laboratory Tests Past 24 Hrs 11/25/18 11/26/18 12:40 05:02 Sodium 133 L Potassium 5.1 Chloride 99 Carbon Dioxide 25.0 Anion Gap 9 BUN 95 H Creatinine 2.79 H Estim Creat Clear Calc 13.36 Est GFR (MDRD) Af Amer 21 L Est GFR (MDRD) Non-Af 18 L BUN/Creatinine Ratio 34.1 H Glucose 475 H* 326 H Calcium 8.6 POC Glucose 11/26/18 11/25/18 11/25/18 06:29 21:45 19:57 POC Glucose 303 H 358 H 338 H 11/25/18 11/25/18 11/25/18 18:16 16:55 13:37 POC Glucose 477 H* 459 H* > 500 H* 11/25/18 12:07 POC Glucose 496 H* Clinical Impression(s) from Imaging Studies Chest X-Ray 11/23/18 13:10 IMPRESSION: Mild degree of CHF. Status post mitral valve replacement. Electronically Signed: Pierre Hua, at 13:48 EDT , Service support , Assessment/Plan RECOMMENDATIONS: 1. Consider transition to prednisone for 5 days 2. Can be discharged on Trelegy instead of Anoro 3. Walking oximetry prior to discharge 4. Consider outpatient evaluation with Holter monitor IMPRESSIONS: 1. Acute on chronic hypoxic respiratory failure Given hospital course, it is unlikely that this constitutes an acute COPD exacerbation given her acute onset of symptoms. Some suspicion for acute diastolic congestive heart failure would be appreciated. Patient can be transitioned over to prednisone therapy and complete a 5-day burst. Diuretics per hospitalist. Infectious work-up has been negative to this point and patient is feeling good today. Patient should have a walking oximetry prior to discharge. Patient can be transitioned over to Trelegy from Anoro as this can add inhaled corticosteroid to therapy and may help stabilize respiratory condition. Would continue with Mucinex. 2. Type 2 diabetes mellitus Patient with significantly elevated blood sugars, but this is likely secondary to steroid therapy. Patient can likely be discharged on her current medications with blood sugar checks. 3. Probable acute on chronic diastolic congestive heart failure Given the rapidity of decompensation and acute onset, differential diagnosis would include flash pulmonary edema with diastolic congestive heart failure versus pulmonary embolism versus laryngeal spasm. Fluid balance has been difficult given patient's stage IV chronic kidney disease. 4. Hypertension/history of mitral valve replacement/hypothyroidism/coronary artery disease/history of paroxysmal A. fib Complicates care, management, recovery and prognosis. Would defer to hospitalist. INR was therapeutic as of yesterday. Code Visit Inpatient E&M: 42710 Init Hosp L2
--- NOTE | 2018-11-26 11:29 | DCINST_ITS ---
- Discharge Diagnoses Reason(s) for Visit for Discharge Instructions: Shortness of breath You will use the following diet at home:: Calorie/Carbohydrate Controlled (specify 1200, 1400, etc), Cardiac Your food should be the consistency of: Regular Your liquids should be the consistency of: Regular/Thin Discharge Activity: Return to Normal Activity Weight Bearing Status: Weight bearing as tolerated Additional Instructions: Continue to use your oxygen all the time. Follow a strict fluid restriction to about 1800 mils a day. Weigh yourself every day. You need a repeat blood work within a week with Dr. Ulloa or your primary doctor. You are being discharged on Lasix every other day. You are being discharged on new medication as well as a short course of prednisone. Continue to check your blood sugars 3-4 times a day. Take notes of changes to your insulin. Allergies/Adverse Reactions: Allergies dronedarone [From Multaq] Allergy (Severe, Verified 10/19/18 13:38) difficulty breathing dronedarone HCl [From Multaq] Allergy (Verified 10/19/18 13:38) Other unable to breath levofloxacin [From Levaquin] Adverse Reaction (Severe, Verified 10/19/18 13:46) hallucinations, hot flashes quinapril [From Accupril] Adverse Reaction (Severe, Verified 10/19/18 13:38) near syncope cortisone Adverse Reaction (Intermediate, Verified 10/19/18 13:38) swelling hydralazine Adverse Reaction (Intermediate, Verified 10/19/18 13:38) weakness Beta-Blockers (Beta-Adrenergic Bloc Adverse Reaction (Verified 10/19/18 13:38) Other WHEEZING, shaking, passes out CARDURA Allergy (Uncoded 10/19/18 13:38) Other PT NOT SURE- POSSIBLE SWELLING NORVASC Allergy (Uncoded 10/19/18 13:38) Swelling SCALLOPS Allergy (Uncoded 10/19/18 13:38) Swelling SULFA Allergy (Uncoded 10/19/18 13:38) Other SPOTS IN MOUTH/SORE MOUTH ATIVAN Adverse Reaction (Uncoded 10/19/18 13:38) Other HALLUCINATIONS METATOPOLOL TARTATE Adverse Reaction (Uncoded 10/19/18 13:38) Other Medications to take at Discharge Albuterol Inhaler [Ventolin Hfa] 2 puff INHALATION Q4H PRN PRN #1 inhaler 10/27/14 Aspirin E.C. [Ecotrin] 81 mg PO QHS 01/07/18 Albuterol Aerosols [Ventolin Aerosols] 3 ml INHALATION BID 06/22/18 Amiodarone HCl 100 mg PO DAILY 06/22/18 Multivit-Min/Iron/Folic/Lutein [Centrum Silver Women Tablet] 1 tab PO DAILY 06/22/18 levothyroxine 88 mcg tablet 88 mcg PO DAILY 30 Days #90 tab 07/27/18 insulin lispro (U- 100) 100 unit/mL subcutaneous pen See Protocol SC .with meals ml 09/29/18 Lecithin, Soy [Lecithin] 1,200 mg PO DAILY 11/23/18 Losartan Potassium [Cozaar] 50 mg PO DAILY 11/23/18 Warfarin Sodium 3 mg PO SUTHFRSA 11/23/18 Warfarin Sodium [Coumadin] 4 mg PO MOTUWE 11/23/18 Calcitriol [Rocaltrol] 0.25 mcg PO MOWEFR capsule 11/25/18 Prednisone See Rx Instructions PO .COMPLEX PRN #30 tab 11/25/18 Fluticasone/Umeclidin/Vilanter [Trelegy Ellipta 100-62.5-25] 1 each IH DAILY #1 inhaler 11/26/18 Furosemide [Lasix] 20 mg PO QODAY #14 tablet 11/26/18 Guaifenesin [Mucinex] 1,200 mg PO BID #20 tablet 11/26/18 Insulin Glargine [Lantus SoloStar Pen] 40 units SC BID pen 11/26/18 Insulin Lispro [Humalog KwikPen] 10 unit SC TIDAC #1 insuln.pen 11/26/18 Prednisone 10 mg PO DAILY #4 tablet 11/26/18 The following prescriptions were given: Fluticasone/Umeclidin/Vilanter [Trelegy Ellipta 100-62.5-25] 1 each IH DAILY #1 inhaler Furosemide [Lasix] 20 mg PO QODAY #14 tablet Insulin Lispro [Humalog KwikPen] 10 unit SC TIDAC #1 insuln.pen Prednisone See Rx Instructions PO .COMPLEX PRN #30 tab PRN Reason: BREATHING Prednisone 10 mg PO DAILY #4 tablet Guaifenesin [Mucinex] 1,200 mg PO BID #20 tablet Primary Care Physician: Jovana Moulton MD [Primary Care Provider] - Please follow up with your Primary Care Physician in: within 1 week Test Results: Test results from this visit will be discussed in further detail at your follow- up appointment, if applicable. Please Follow Up With: Jerzy Smiley MD When: within 2 weeks Please Follow Up With: Lety Ulloa DO When: within 1-2 weeks Proposed Discharge Date: 11/26/18
--- NOTE | 2018-11-26 11:29 | PCM.DC.SUM ---
Discharge Date and Diagnosis Date of Admission: 11/23/18 Date of Discharge: 11/26/18 - Primary Discharge Diagnosis Acute on chronic hypoxic respiratory failure Acute on chronic diastolic CHF, EF 65% Acute COPD exacerbation HERNAN on CKD stage IV - Secondary Discharge Diagnosis Chronic Problems (Last Updated 11/23/18 @ 15:49 by Dejah Singh MD) Chronic ulcer of right great toe with fat layer exposed (Chronic) Traumatic ulcer of left foot with fat layer exposed (Chronic) Peripheral arterial disease (Chronic) Chronic hypoxemic respiratory failure (Chronic) CAD (coronary artery disease) (Chronic) S/P PTCA (percutaneous transluminal coronary angioplasty) (Chronic) S/P CABG x 1 (Chronic) S/P left atrial appendage ligation (Chronic) Subdural bleeding (Chronic) Mitral stenosis (Chronic) Paroxysmal atrial fibrillation (Chronic) Depression (Chronic) S/P CABG x 1 (Chronic 09/29/14) 09/29/2014 CABG: SVG to distal [facility] per Dr. Miller 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 Angela Alexis History of mitral valve replacement with bioprosthetic valve (Chronic 09/29/14) 09/29/2014: MVR with 27 mm Medtronic tisue valve per Dr. Angela Alexis Hyperlipidemia (Chronic) Hypertension (Chronic) resistant HTN Cerebrovascular disease (Chronic) ischemic stroke w hemorrhagic transformation in the setting of coumadin anticoagulation Anemia (Chronic) CRF (chronic renal failure) (Chronic) Anticoagulation goal of INR 2 to 3 (Chronic) Diabetes mellitus type II, uncontrolled (Chronic) Stroke with left visual deficit (Chronic) Chronic diastolic heart failure (Chronic) Pulmonary hypertension (Chronic) AMGALI (obstructive sleep apnea) (Chronic) on CPAP Hospital Course and Treatment Imaging Results: Clinical Impression(s) from Imaging Studies Chest X-Ray 11/23/18 13:10 IMPRESSION: Mild degree of CHF. Status post mitral valve replacement. Electronically Signed: Pierre Hua, at 13:48 EDT , Service support , Consultations 11/23/18 20:14 Consult: Onc/Wound/paediatric surgeon Routine Comment: foot wound Pulmonology Operations: None Procedures: None Summary of Care Provided: The patient is a 78 year old F with past medical history of chronic diastolic CHF, chronic respiratory failure, on home oxygen who comes in with an episode of hypoxia in which patient was saturating 78% on 2 L. She was admitted to the telemetry floor and managed as acute on chronic diastolic CHF, acute COPD exacerbation. Patient improved with IV steroids, IV Lasix, and breathing treatments. Blood sugars were elevated because of the IV steroids. Her kidney function also was progressively worse with IV Lasix. Lasix was switched to oral Lasix with persistent worsening of her kidney function with eventual withholding of Lasix on the day of discharge. Was seen by pulmonology. She will follow-up in the outpatient. She was started on trelegy and given a short course of steroid. Her insulin regimen was changed to Lantus 40 mg twice daily as well as pre-meal insulin 10 units 3 times daily. Patient to follow-up with the primary care doctor and food operations manager within 1 week for repeat blood work. Subjective: Patient was seen and examined. Feels improved, denies chest pain, dizziness or chest pain. - Physical Exam General: Alert, Oriented x3, Cooperative, No apparent distress HEENT: Atraumatic, PERRLA, EOMI, Normocephalic Oral: Moist Mucosa Neck: Supple Lungs: Clear to auscultation, Normal air movement Cardiovascular: Regular rate, Regular Rhythm, Normal S1, Normal S2, No murmurs Abdomen: Bowel Sounds Present, Soft, Non Tender, Non-Distended, No Hepato-splenomegaly Extremities: Edema - bilateral pedal edema, chronic venous stasis changes Skin: No rashes, No breakdown Musculoskeletal: No Tenderness to Palpation of Joints or Extremities Neurological: Cranial nerves II-XII grossly intact Psych/Mental Status: Normal Affect, Appropriate Vital Signs Temp Pulse Resp BP Pulse Ox 97.8 F 65 16 133/48 H 99 11/26/18 09:09 11/26/18 11:08 11/26/18 11:08 11/26/18 09:09 11/26/18 09:09 Oxygen Flow Rate (L/min) 1 Oxygen Delivery Method Nasal Cannula Weight: 79.3 kg Body Mass Index (BMI) 30.3 Finger Stick Blood Glucose 257 Intake and Output for Last 24 Hours 11/24/18 11/25/18 11/26/18 23:59 23:59 23:59 Intake Total 860 / 860 510 / 510 Output Total 1550 / 1550 375 / 375 Balance -690 / -690 135 / 135 Microbiology Past 72 Hours 11/23/18 19:50 Gram Stain - Final Sputum, Expectorated/Coughed Respiratory Culture - Final 11/23/18 17:00 Respiratory Panel (PCR) - Final Mucosa - Nasopharyngeal Laboratory Tests Past 24 Hrs 11/25/18 11/26/18 12:40 05:02 Sodium 133 L Potassium 5.1 Chloride 99 Carbon Dioxide 25.0 Anion Gap 9 BUN 95 H Creatinine 2.79 H Estim Creat Clear Calc 13.36 Est GFR (MDRD) Af Amer 21 L Est GFR (MDRD) Non-Af 18 L BUN/Creatinine Ratio 34.1 H Glucose 475 H* 326 H Calcium 8.6 POC Glucose 11/26/18 11/25/18 11/25/18 06:29 21:45 19:57 POC Glucose 303 H 358 H 338 H 11/25/18 11/25/18 11/25/18 18:16 16:55 13:37 POC Glucose 477 H* 459 H* > 500 H* 11/25/18 12:07 POC Glucose 496 H* Discharge Diet: Low fat/ Low Cholesterol, 2000 mg Sodium Diet, Renal Diet Discharge Activity: Return to Normal Activity Weight Bearing Status: Weight bearing as tolerated Home Medications: Medications to take at Discharge Albuterol Inhaler [Ventolin Hfa] 2 puff INHALATION Q4H PRN PRN #1 inhaler 10/27/14 Aspirin E.C. [Ecotrin] 81 mg PO QHS 01/07/18 Albuterol Aerosols [Ventolin Aerosols] 3 ml INHALATION BID 06/22/18 Amiodarone HCl 100 mg PO DAILY 06/22/18 Multivit-Min/Iron/Folic/Lutein [Centrum Silver Women Tablet] 1 tab PO DAILY 06/22/18 levothyroxine 88 mcg tablet 88 mcg PO DAILY 30 Days #90 tab 07/27/18 insulin lispro (U- 100) 100 unit/mL subcutaneous pen See Protocol SC .with meals ml 09/29/18 Lecithin, Soy [Lecithin] 1,200 mg PO DAILY 11/23/18 Losartan Potassium [Cozaar] 50 mg PO DAILY 11/23/18 Warfarin Sodium 3 mg PO SUTHFRSA 11/23/18 Warfarin Sodium [Coumadin] 4 mg PO MOTUWE 11/23/18 Calcitriol [Rocaltrol] 0.25 mcg PO MOWEFR capsule 11/25/18 Prednisone See Rx Instructions PO .COMPLEX PRN #30 tab 11/25/18 Fluticasone/Umeclidin/Vilanter [Trelegy Ellipta 100-62.5-25] 1 each IH DAILY #1 inhaler 11/26/18 Furosemide [Lasix] 20 mg PO QODAY #14 tablet 11/26/18 Guaifenesin [Mucinex] 1,200 mg PO BID #20 tablet 11/26/18 Insulin Glargine [Lantus SoloStar Pen] 40 units SC BID pen 11/26/18 Insulin Lispro [Humalog KwikPen] 10 unit SC TIDAC #1 insuln.pen 11/26/18 Prednisone 10 mg PO DAILY #4 tablet 11/26/18 Following Prescrptions Were Given to Patient: Fluticasone/Umeclidin/Vilanter [Trelegy Ellipta 100-62.5-25] 1 each IH DAILY #1 inhaler Furosemide [Lasix] 20 mg PO QODAY #14 tablet Insulin Lispro [Humalog KwikPen] 10 unit SC TIDAC #1 insuln.pen Prednisone See Rx Instructions PO .COMPLEX PRN #30 tab PRN Reason: BREATHING Prednisone 10 mg PO DAILY #4 tablet Guaifenesin [Mucinex] 1,200 mg PO BID #20 tablet Primary Care Physician: Jovana Moulton MD [Primary Care Provider] - Please follow up with your Primary Care Physician in: within 1 week Please Follow Up With: Jerzy Smiley MD When: within 2 weeks Please Follow Up With: Lety Ulloa DO When: within 1-2 weeks Disposition: Home Minutes spent on discharge:: 40 Patient Condition:: Stable Medical Necessity - Tobacco Use Smoking Status: Never smoker Tobacco Use: Non-smoker, Secondhand Meaningful Use Info Meaningful Use Diagnoses (Choose all that apply): CHF - CHF BETZAIDA/ARB ordered at discharge?: Yes Documented LVEF (%): 65 Code Visit Inpatient E&M: 39780 Disch Hosp
[2018-11-26 11:36] LABS: Bedside Glucose 409 mg/dL (70-110)
--- NOTE | 2018-11-26 12:31 | CASEMGMT ---
This RN CM to room to discuss discharge plan with pt/ at this time. This RN CM offered pt HHC or OP therapy at this time and pt declined, stating, 'I should probably say yes but I don't want to.' Pt states that she showers while is still home and states no other concerns at this time. This RN CM had offered CCN during pt's most recent visit and pt declined at that time. Pt/ voice no further questions/concerns/needs at this time. Pt awaiting dispo. SStaten RN CM
--- NOTE | 2018-11-27 14:57 | CASEMGMT ---
LINDSEY MONTEJO Discharge Follow-Up Phone Call. Lace: 14 Strata: 4 Discharge Date: 11/26/18 Adm Dx: Acute on Cronic Resp Failure, COPD exac Attempted discharge follow-up phone call. No answer. Message left for pt to return call to BREAD DISTRIBUTORNette PORTILLO CM, if there are any questions re: discharge instructions, appts, or medications. Phone number provided. Kacy BECKFORD RN, CM
== END 2018-11-26 14:54 | disposition home or self-care (01) | DRG 291 ==
LOC: ED 13:38 → PCU 16:02
PROVIDERS: Nurse Practitioner Family; Admitting Provider Hospitalist; Emergency Provider Emergency Medicine; Family Provider Internal Medicine; PCP Internal Medicine; Visit Provider Internal Medicine
DX: I13.0 Hypertensive heart and chronic kidney disease with heart failure and stage 1 through stage 4 chronic kidney disease, or unspecified chronic kidney disease (principal); J96.21 Acute and chronic respiratory failure with hypoxia; I50.33 Acute on chronic diastolic (congestive) heart failure; J44.1 Chronic obstructive pulmonary disease with (acute) exacerbation; N17.9 Acute kidney failure, unspecified; N18.4 Chronic kidney disease, stage 4 (severe); Z99.81 Dependence on supplemental oxygen; I25.10 Atherosclerotic heart disease of native coronary artery without angina pectoris; E11.22 Type 2 diabetes mellitus with diabetic chronic kidney disease; I73.9 Peripheral vascular disease, unspecified; Z95.1 Presence of aortocoronary bypass graft; Z95.5 Presence of coronary angioplasty implant and graft; Z79.4 Long term (current) use of insulin; E11.65 Type 2 diabetes mellitus with hyperglycemia; Z95.3 Presence of xenogenic heart valve; E78.5 Hyperlipidemia, unspecified; I27.20 Pulmonary hypertension, unspecified; Z77.22 Contact with and (suspected) exposure to environmental tobacco smoke (acute) (chronic); I48.0 Paroxysmal atrial fibrillation; Z79.01 Long term (current) use of anticoagulants; E03.9 Hypothyroidism, unspecified; G47.33 Obstructive sleep apnea (adult) (pediatric); L97.522 Non-pressure chronic ulcer of other part of left foot with fat layer exposed; L97.512 Non-pressure chronic ulcer of other part of right foot with fat layer exposed; I69.298 Other sequelae of other nontraumatic intracranial hemorrhage; H53.9 Unspecified visual disturbance
CPT/HCPCS: 36415; 36600; 71045; 80048; 81001; 82803; 82947; 82962; 83880; 84484; 85025; 85610; 87070; 87205; 87633; 93005; 94640; 94660; 94667; 94668; 97162; 97166; 97530; 97535; 97802; 99285; A4216; J1940

== ENCOUNTER → 2018-12-01 | Outpatient (CLI) | payer MEDICARE, SELFPAY ==
[2018-11-26 13:18] VITALS: BMI 30.3
[2018-12-01 11:01] LABS: Prothrombin Time Fingerstick 22.6 SEC (11.9-14.4)
== END | disposition home or self-care (01) ==
LOC: LAB 09:09
PROVIDERS: Family Provider Internal Medicine; PCP Internal Medicine; Visit Provider Internal Medicine Cardiovascular Disease
DX: I48.0 Paroxysmal atrial fibrillation (principal); Z51.81 Encounter for therapeutic drug level monitoring; Z79.01 Long term (current) use of anticoagulants
CPT/HCPCS: 36416; 85610

== ENCOUNTER → 2018-12-07 | Outpatient (CLI) | payer MEDICARE, SELFPAY ==
[2018-12-03 08:12] VITALS: BMI 30.3
[2018-12-07 11:22] LABS: Hematocrit 39.7 % (37-47); Hemoglobin 12.5 g/dl (12.0-15.0); Mean Corp Hgb Conc 31.5 g/gl (32-36); Mean Corpuscular Hgb 25.6 pg (27.0-32.0); Mean Corpuscular Volume 81.4 fL (81-99); Platelet Count 203 K/mm3 (150-450); RBC Distribution Width CV 17.1 % (11.6-14.6); RBC Distribution Width SD 50.9 fl (35.1-43.9); Red Blood Count 4.88 M/mm3 (4.2-5.4); White Blood Count 14.8 K/mm3 (4.4-11.0)
[2018-12-07 11:29] LABS: International Normalized Ratio 3.3; Prothrombin Time (Protime)PT. 33.5 SECONDS (11.7-14.9)
[2018-12-07 11:30] LABS: Scan Indicated on CBC? Y/N NO
[2018-12-07 11:47] LABS: Hemoglobin A1c 9.7 % (4.2-6.3)
[2018-12-07 12:00] LABS: AST(SGOT) 41 U/L (15-37); Alanine Aminotransfer ALT/SGPT 126 U/L (13-56); Albumin, Serum 3.4 g/dL (3.2-5.0); Alkaline Phosphatase 153 U/L (45-117); Anion Gap 3 (5-15); BUN 57 mg/dL (7-18); BUN/Creat Ratio 29.4 RATIO (10-20); Calcium,Total 8.4 mg/dL (8.5-10.1); Chloride 110 mmol/L (98-107); Cholesterol 162 mg/dL (200); Creatinine, Serum 1.94 mg/dL (0.55-1.02); EST Glomerular Filtration Rate 27 mL/min (>60); Est Glom Filt Rate - Afr Amer 32 mL/min (>60); Free T3 1.7 pg/mL (2.18-3.98); Globulin 3.3 g/dL (2.2-4.2); Glucose 61 mg/dL (74-106); High Density Lipoprotein 74 mg/dL; Magnesium 2.5 mg/dL (1.6-2.6); Potassium 3.8 mmol/L (3.5-5.1); Protein, Total 6.7 g/dL (6.4-8.2); Sodium Level 144 mmol/L (136-145); Thyroid Stim Hormone (TSH) 8.32 uIU/mL (0.358-3.74); Triglycerides 81 mg/dL; Very Low Density Lipoprotein 16 mg/dL (5-40)
== END | disposition home or self-care (01) ==
LOC: LAB 09:21
PROVIDERS: Family Provider Internal Medicine; PCP Internal Medicine; Visit Provider Internal Medicine Cardiovascular Disease
DX: I48.0 Paroxysmal atrial fibrillation (principal); Z51.81 Encounter for therapeutic drug level monitoring; Z79.01 Long term (current) use of anticoagulants; E03.9 Hypothyroidism, unspecified; E11.621 Type 2 diabetes mellitus with foot ulcer; L97.511 Non-pressure chronic ulcer of other part of right foot limited to breakdown of skin; Z79.899 Other long term (current) drug therapy; I10 Essential (primary) hypertension; E78.2 Mixed hyperlipidemia
CPT/HCPCS: 36415; 80053; 80061; 83036; 83735; 84439; 84443; 84481; 85027; 85610

== ENCOUNTER → 2018-12-14 | Outpatient (CLI) | payer MEDICARE, SELFPAY ==
[2018-12-11 11:20] VITALS: BMI 33.3
== END | disposition home or self-care (01) ==
LOC: LAB 09:37
PROVIDERS: Family Provider Internal Medicine; PCP Internal Medicine; Visit Provider Internal Medicine Cardiovascular Disease
DX: I48.0 Paroxysmal atrial fibrillation (principal); Z51.81 Encounter for therapeutic drug level monitoring; Z79.01 Long term (current) use of anticoagulants

== ENCOUNTER 2018-12-24 09:00 | Outpatient (RCR) | payer MEDICARE, SELFPAY ==
[2018-11-25 01:13] VITALS: BP 108/50; PULSE 50; RESP 18; TEMP 35.9
[2018-11-26 13:18] VITALS: BMI 30.3
[2018-12-03 08:12] VITALS: BP 127/82; PULSE 104; RESP 20; TEMP 36.6; BMI 30.3
--- NOTE | 2018-12-03 09:09 | PCM.WC.PN ---
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 History of Wound: Ms. Rothman is a 78-year-old who was referred to the wound center by her distribution analyst for continued wound care. She has a chronic right great toe ulcer which she has been managing conservatively at home for about 6 months. However, she presented to a distribution analyst due to left foot ulcer. She had a bowel drop on her foot about 3 weeks ago. She subsequently developed discoloration and swelling for which she was seen in the emergency room. Imaging done at that time was without any significant abnormality. Plan was to conservatively manage. However about a week ago. She noted an opening over the area with associated drainage/discharge. She was seen by her distribution analyst and vacuum therapy was recommended. She reports a history of diabetes which is not well controlled. Last A1c per patient was around 9. She is currently on insulin. Progress of Wound: Left dorsum improving. Right great toe with mild worsening. Patient not offloading as recommended. - Physical Exam Vital Signs Temp Pulse Resp BP 97.8 F 104 H 20 H 127/82 H 12/03/18 08:12 12/03/18 08:12 12/03/18 08:12 12/03/18 08:12 General: Alert, Oriented x3, Cooperative, No apparent distress HEENT: Atraumatic, Normocephalic Oral: Moist Mucosa Lungs: Normal air movement Extremities: No cyanosis, Edema Skin: Ulcer/ Wound Wound Measurements and Assessment WC - Nurse 1 - General Ulcer Measurement Start: 12/03/18 08:12 Freq: Status: Active Protocol: Activity Type Activity Date Activity User E-Sign Co-Sign Detail Recorded Client Recorded Date Recorded By Document 12/03/18 08:12 DL [id number] 12/03/18 08:23 DL 12/03/18 08:12 Wound Center Nurse 1 [Ulcer Assessment] #3 R Grt Toe Plantar -Current Size (cm) - Length 0.2 -Current Size (cm) - Width 0.2 -Current Size (cm) - Depth 0.2 -Total Square Cm 0.04 -Photo Taken Yes -Exudate Amt Small -Exudate Type Serosanguineous -Wound Margin Distinct, Outline Attached -Granulation Amt Small (1-33%) -Granulation Quality [place] -Necrosis Amt Small (1-33%) -Necrotic Tissue Type Adherent Slough -Structure Exposed N/A -Texture (Amy-wound Skin Appearance) Callus Scarring -Moisture (Amy-wound Skin Appearance No Abnormality ) -Color (Amy-wound Skin Appearance) Hemosiderin Staining -Temperature (Amy-wound Skin No Abnormality Appearance) (Pt Warm) -Tenderness on Palpation (Amy-wound No Skin Appearance) -Ulcer Cleansing Rinsed/ Irrigated with Saline -Foul Odor after Cleansing No -Anesthetic Used 4% Lidocaine Solution #2 L Foot Dorsal -Current Size (cm) - Length 0.2 -Current Size (cm) - Width 0.2 -Current Size (cm) - Depth 0.1 -Total Square Cm 0.04 -Photo Taken Yes -Exudate Amt None Present -Wound Margin Flat & Intact -Granulation Amt Small (1-33%) -Granulation Quality [place] -Necrosis Amt None Present (0 %) -Structure Exposed N/A -Texture (Amy-wound Skin Appearance) Scarring -Moisture (Amy-wound Skin Appearance Dry/Scaly ) -Color (Amy-wound Skin Appearance) Hemosiderin Staining -Temperature (Amy-wound Skin No Abnormality Appearance) (Pt Warm) -Tenderness on Palpation (Amy-wound No Skin Appearance) -Ulcer Cleansing Rinsed/ Irrigated with Saline -Foul Odor after Cleansing No -Anesthetic Used 4% Lidocaine Solution [Edema Assessment] -Right Calf (cm) 32.5 -Right Ankle (cm) 23.5 -Left Calf (cm) 33.5 -Left Ankle (cm) 22.5 WC - Nurse 2 - General Ulcer CM Notes Start: 12/03/18 08:12 Freq: Status: Active Protocol: Activity Type Activity Date Activity User E-Sign Co-Sign Detail Recorded Client Recorded Date Recorded By Document 12/03/18 08:32 MW [id number] 12/03/18 08:36 MW 12/03/18 08:32 Wound Center Nurse 2 [Procedure/Treatment] #3 R Grt Toe Plantar -Time 08:34 -Correct Patient Yes -Correct Side, Site, Position Yes -Correct Procedure Yes -Procedure Performed Yes -Type of Procedure Debridement -Clinical Debridement Subcutaneous -Post Debridement Size (cm) - Length 0.1 -Post Debridement Size (cm) - Width 0.2 -Post Debridement Size (cm) - Depth 0.1 -Total Square Cm 0.02 -Wound/Ulcer Outcome Not Healed -Ulcer Cleansing Rinsed/ Irrigated with Saline -Foul Odor after Cleansing No -Bioengineered Tissue No -Bleeding Controlled with Pressure -Offloading No -Treatment Response Procedure Tolerated Well #2 L Foot Dorsal -Time 08:33 -Correct Patient Yes -Correct Side, Site, Position Yes -Correct Procedure Yes -Procedure Performed Yes -Type of Procedure Debridement -Clinical Debridement Subcutaneous -Post Debridement Size (cm) - Length 0.4 -Post Debridement Size (cm) - Width 0.2 -Post Debridement Size (cm) - Depth 0.1 -Total Square Cm 0.08 -Wound/Ulcer Outcome Not Healed -Ulcer Cleansing Rinsed/ Irrigated with Saline -Foul Odor after Cleansing No -Bioengineered Tissue No -Bleeding Controlled with Pressure -Offloading No -Treatment Response Procedure Tolerated Well [See Physician Procedure note for Specifics] Pain Scale: 0-10 Numeric [Pain] -Is Patient Pain Free? Yes Musculoskeletal: No Muscle Wasting Neurological: Cranial nerves II-XII grossly intact Psych/Mental Status: Normal Affect Debridement Note Post-Debridement Measurements/Treatment WC - Nurse 2 - General Ulcer CM Notes Start: 12/03/18 08:12 Freq: Status: Active Protocol: Activity Type Activity Date Activity User E-Sign Co-Sign Detail Recorded Client Recorded Date Recorded By Document 12/03/18 08:32 MW [id number] 12/03/18 08:36 MW 12/03/18 08:32 Wound Center Nurse 2 #3 R Grt Toe Plantar -Time 08:34 -Correct Patient Yes -Correct Side, Site, Position Yes -Correct Procedure Yes -Procedure Performed Yes -Type of Procedure Debridement -Clinical Debridement Subcutaneous -Post Debridement Size (cm) - Length 0.1 -Post Debridement Size (cm) - Width 0.2 -Post Debridement Size (cm) - Depth 0.1 -Total Square Cm 0.02 -Wound/Ulcer Outcome Not Healed -Ulcer Cleansing Rinsed/ Irrigated with Saline -Foul Odor after Cleansing No -Bioengineered Tissue No -Bleeding Controlled with Pressure -Offloading No -Treatment Response Procedure Tolerated Well #2 L Foot Dorsal -Time 08:33 -Correct Patient Yes -Correct Side, Site, Position Yes -Correct Procedure Yes -Procedure Performed Yes -Type of Procedure Debridement -Clinical Debridement Subcutaneous -Post Debridement Size (cm) - Length 0.4 -Post Debridement Size (cm) - Width 0.2 -Post Debridement Size (cm) - Depth 0.1 -Total Square Cm 0.08 -Wound/Ulcer Outcome Not Healed -Ulcer Cleansing Rinsed/ Irrigated with Saline -Foul Odor after Cleansing No -Bioengineered Tissue No -Bleeding Controlled with Pressure -Offloading No -Treatment Response Procedure Tolerated Well Pain Scale: 0-10 Numeric Is Patient Pain Free? Yes Wound debrided: Left Dorsal foot Wound Grade/Stage: Stage III Type of Debridement: Excisional debridement Anesthesia Used: 4% Lidocaine Solution Depth: Down to and including healthy tissue, in the subcutaneous layer Percentage of wound debrided: 100 Instrument Used: 3mm curette Tissue Removed: Slough and devitalized tissues Severity: Fat Layer Exposed Amount of bleeding with debridement: Mild Bleeding Controlled with: Pressure Patient tolerated procedure well - Additional Wound Wound debrided: Right Great Toe Wound Grade/Stage: Stage II Type of Debridement: Excisional debridement Anesthesia Used: 4% Lidocaine Solution Depth: Down to and including healthy tissue, in the subcutaneous layer Percentage of wound debrided: 100 Instrument Used: 3mm curette Tissue Removed: Slough and devitalized tissue Severity: Fat Layer Exposed Amount of bleeding with debridement: Mild Bleeding Controlled with: Pressure Patient tolerated procedure: Patient tolerated procedure well Assessment/Plan Active Problems (Last Updated 11/23/18 @ 15:49 by Dejah Singh MD) Chronic ulcer of right great toe with fat layer exposed (Chronic) Traumatic ulcer of left foot with fat layer exposed (Chronic) Diabetes mellitus type II, uncontrolled (Chronic) Assessment: Traumatic ulcer of the left dorsal foot and chronic right great toe ulcer in a patient with poorly controlled diabetes mellitus. Plan: Generally improving. Minimal area of left dorsal foot left. Debridement done as documented above. Procedure was well-tolerated. Continue Promogran with Adaptic over top to both. Change daily to twice daily. Continue barrier to left lateral foot due to bony deformity. Double layer Tubigrip for edema management. Offloading strongly recommended for right lower extremity. They have not been compliant with this. Advised to follow-up with her distribution analyst for proper fitting. Increased protein intake recommended. Optimal blood sugar control also strongly recommended. All her questions were answered and she was advised to call with any further questions or concerns. Follow-up in 1 week. This note was generated with [employer] dictation software. It may contain incorrect words, spelling, and punctuation that were not noted in checking the note before signing.
--- NOTE | 2018-12-03 09:13 | PN.PCM_ITS ---
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 History of Wound: Ms. Rothman is a 78-year-old who was referred to the wound center by her cap and hat production supervisor for continued wound care. She has a chronic right great toe ulcer which she has been managing conservatively at home for about 6 months. However, she presented to a cap and hat production supervisor due to left foot ulcer. She had a bowel drop on her foot about 3 weeks ago. She subsequently developed discoloration and swelling for which she was seen in the emergency room. Imaging done at that time was without any significant abnormality. Plan was to conservatively manage. However about a week ago. She noted an opening over the area with associated drainage/discharge. She was seen by her cap and hat production supervisor and vacuum therapy was recommended. She reports a history of diabetes which is not well controlled. Last A1c per patient was around 9. She is currently on insulin. Progress of Wound: Left dorsum improving. Right great toe with mild worsening. Patient not offloading as recommended. - Physical Exam Vital Signs Temp Pulse Resp BP 97.8 F 104 H 20 H 127/82 H 12/03/18 08:12 12/03/18 08:12 12/03/18 08:12 12/03/18 08:12 General: Alert, Oriented x3, Cooperative, No apparent distress HEENT: Atraumatic, Normocephalic Oral: Moist Mucosa Lungs: Normal air movement Extremities: No cyanosis, Edema Skin: Ulcer/ Wound Wound Measurements and Assessment WC - Nurse 1 - General Ulcer Measurement Start: 12/03/18 08:12 Freq: Status: Active Protocol: Activity Type Activity Date Activity User E-Sign Co-Sign Detail Recorded Client Recorded Date Recorded By Document 12/03/18 08:12 DL [id number] 12/03/18 08:23 DL 12/03/18 08:12 Wound Center Nurse 1 [Ulcer Assessment] #3 R Grt Toe Plantar -Current Size (cm) - Length 0.2 -Current Size (cm) - Width 0.2 -Current Size (cm) - Depth 0.2 -Total Square Cm 0.04 -Photo Taken Yes -Exudate Amt Small -Exudate Type Serosanguineous -Wound Margin Distinct, Outline Attached -Granulation Amt Small (1-33%) -Granulation Quality [place] -Necrosis Amt Small (1-33%) -Necrotic Tissue Type Adherent Slough -Structure Exposed N/A -Texture (Amy-wound Skin Appearance) Callus Scarring -Moisture (Amy-wound Skin Appearance No Abnormality ) -Color (Amy-wound Skin Appearance) Hemosiderin Staining -Temperature (Amy-wound Skin No Abnormality Appearance) (Pt Warm) -Tenderness on Palpation (Amy-wound No Skin Appearance) -Ulcer Cleansing Rinsed/ Irrigated with Saline -Foul Odor after Cleansing No -Anesthetic Used 4% Lidocaine Solution #2 L Foot Dorsal -Current Size (cm) - Length 0.2 -Current Size (cm) - Width 0.2 -Current Size (cm) - Depth 0.1 -Total Square Cm 0.04 -Photo Taken Yes -Exudate Amt None Present -Wound Margin Flat & Intact -Granulation Amt Small (1-33%) -Granulation Quality [place] -Necrosis Amt None Present (0 %) -Structure Exposed N/A -Texture (Amy-wound Skin Appearance) Scarring -Moisture (Amy-wound Skin Appearance Dry/Scaly ) -Color (Amy-wound Skin Appearance) Hemosiderin Staining -Temperature (Amy-wound Skin No Abnormality Appearance) (Pt Warm) -Tenderness on Palpation (Amy-wound No Skin Appearance) -Ulcer Cleansing Rinsed/ Irrigated with Saline -Foul Odor after Cleansing No -Anesthetic Used 4% Lidocaine Solution [Edema Assessment] -Right Calf (cm) 32.5 -Right Ankle (cm) 23.5 -Left Calf (cm) 33.5 -Left Ankle (cm) 22.5 WC - Nurse 2 - General Ulcer CM Notes Start: 12/03/18 08:12 Freq: Status: Active Protocol: Activity Type Activity Date Activity User E-Sign Co-Sign Detail Recorded Client Recorded Date Recorded By Document 12/03/18 08:32 MW [id number] 12/03/18 08:36 MW 12/03/18 08:32 Wound Center Nurse 2 [Procedure/Treatment] #3 R Grt Toe Plantar -Time 08:34 -Correct Patient Yes -Correct Side, Site, Position Yes -Correct Procedure Yes -Procedure Performed Yes -Type of Procedure Debridement -Clinical Debridement Subcutaneous -Post Debridement Size (cm) - Length 0.1 -Post Debridement Size (cm) - Width 0.2 -Post Debridement Size (cm) - Depth 0.1 -Total Square Cm 0.02 -Wound/Ulcer Outcome Not Healed -Ulcer Cleansing Rinsed/ Irrigated with Saline -Foul Odor after Cleansing No -Bioengineered Tissue No -Bleeding Controlled with Pressure -Offloading No -Treatment Response Procedure Tolerated Well #2 L Foot Dorsal -Time 08:33 -Correct Patient Yes -Correct Side, Site, Position Yes -Correct Procedure Yes -Procedure Performed Yes -Type of Procedure Debridement -Clinical Debridement Subcutaneous -Post Debridement Size (cm) - Length 0.4 -Post Debridement Size (cm) - Width 0.2 -Post Debridement Size (cm) - Depth 0.1 -Total Square Cm 0.08 -Wound/Ulcer Outcome Not Healed -Ulcer Cleansing Rinsed/ Irrigated with Saline -Foul Odor after Cleansing No -Bioengineered Tissue No -Bleeding Controlled with Pressure -Offloading No -Treatment Response Procedure Tolerated Well [See Physician Procedure note for Specifics] Pain Scale: 0-10 Numeric [Pain] -Is Patient Pain Free? Yes Musculoskeletal: No Muscle Wasting Neurological: Cranial nerves II-XII grossly intact Psych/Mental Status: Normal Affect Debridement Note Post-Debridement Measurements/Treatment WC - Nurse 2 - General Ulcer CM Notes Start: 12/03/18 08:12 Freq: Status: Active Protocol: Activity Type Activity Date Activity User E-Sign Co-Sign Detail Recorded Client Recorded Date Recorded By Document 12/03/18 08:32 MW [id number] 12/03/18 08:36 MW 12/03/18 08:32 Wound Center Nurse 2 #3 R Grt Toe Plantar -Time 08:34 -Correct Patient Yes -Correct Side, Site, Position Yes -Correct Procedure Yes -Procedure Performed Yes -Type of Procedure Debridement -Clinical Debridement Subcutaneous -Post Debridement Size (cm) - Length 0.1 -Post Debridement Size (cm) - Width 0.2 -Post Debridement Size (cm) - Depth 0.1 -Total Square Cm 0.02 -Wound/Ulcer Outcome Not Healed -Ulcer Cleansing Rinsed/ Irrigated with Saline -Foul Odor after Cleansing No -Bioengineered Tissue No -Bleeding Controlled with Pressure -Offloading No -Treatment Response Procedure Tolerated Well #2 L Foot Dorsal -Time 08:33 -Correct Patient Yes -Correct Side, Site, Position Yes -Correct Procedure Yes -Procedure Performed Yes -Type of Procedure Debridement -Clinical Debridement Subcutaneous -Post Debridement Size (cm) - Length 0.4 -Post Debridement Size (cm) - Width 0.2 -Post Debridement Size (cm) - Depth 0.1 -Total Square Cm 0.08 -Wound/Ulcer Outcome Not Healed -Ulcer Cleansing Rinsed/ Irrigated with Saline -Foul Odor after Cleansing No -Bioengineered Tissue No -Bleeding Controlled with Pressure -Offloading No -Treatment Response Procedure Tolerated Well Pain Scale: 0-10 Numeric Is Patient Pain Free? Yes Wound debrided: Left Dorsal foot Wound Grade/Stage: Stage III Type of Debridement: Excisional debridement Anesthesia Used: 4% Lidocaine Solution Depth: Down to and including healthy tissue, in the subcutaneous layer Percentage of wound debrided: 100 Instrument Used: 3mm curette Tissue Removed: Slough and devitalized tissues Severity: Fat Layer Exposed Amount of bleeding with debridement: Mild Bleeding Controlled with: Pressure Patient tolerated procedure well - Additional Wound Wound debrided: Right Great Toe Wound Grade/Stage: Stage II Type of Debridement: Excisional debridement Anesthesia Used: 4% Lidocaine Solution Depth: Down to and including healthy tissue, in the subcutaneous layer Percentage of wound debrided: 100 Instrument Used: 3mm curette Tissue Removed: Slough and devitalized tissue Severity: Fat Layer Exposed Amount of bleeding with debridement: Mild Bleeding Controlled with: Pressure Patient tolerated procedure: Patient tolerated procedure well Assessment/Plan Active Problems (Last Updated 11/23/18 @ 15:49 by Dejah Singh MD) Chronic ulcer of right great toe with fat layer exposed (Chronic) Traumatic ulcer of left foot with fat layer exposed (Chronic) Diabetes mellitus type II, uncontrolled (Chronic) Assessment: Traumatic ulcer of the left dorsal foot and chronic right great toe ulcer in a patient with poorly controlled diabetes mellitus. Plan: Generally improving. Minimal area of left dorsal foot left. Debridement done as documented above. Procedure was well-tolerated. Continue Promogran with Adaptic over top to both. Change daily to twice daily. Continue barrier to left lateral foot due to bony deformity. Double layer Tubigrip for edema management. Offloading strongly recommended for right lower extremity. They have not been compliant with this. Advised to follow-up with her cap and hat production supervisor for proper fitting. Increased protein intake recommended. Optimal blood sugar control also strongly recommended. All her questions were answered and she was advised to call with any further questions or concerns. Follow-up in 1 week. This note was generated with [employer] dictation software. It may contain incorrect words, spelling, and punctuation that were not noted in checking the note before signing.
[2018-12-03 18:03] LABS: PTHIN 170.1 pg/mL (18.4-80.1)
[2018-12-03 18:21] LABS: Albumin, Serum 3.2 g/dL (3.2-5.0); BUN 66 mg/dL (7-18); Calcium,Total 8.4 mg/dL (8.5-10.1); Chloride 105 mmol/L (98-107); Creatinine, Serum 1.94 mg/dL (0.55-1.02); EST Glomerular Filtration Rate 27 mL/min (>60); Est Glom Filt Rate - Afr Amer 32 mL/min (>60); Estimated Creatinine Clearance 20.09 ml/min; Glucose 53 mg/dL (74-106); Potassium 4.2 mmol/L (3.5-5.1); Sodium Level 142 mmol/L (136-145)
[2018-12-10 09:07] VITALS: BP 139/72; PULSE 52; RESP 18; TEMP 35.9; BMI 30.3
--- NOTE | 2018-12-10 14:27 | PCM.WC.PN ---
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 History of Wound: Ms. Rothman is a 78-year-old who was referred to the wound center by her pelletising extruder operator for continued wound care. She has a chronic right great toe ulcer which she has been managing conservatively at home for about 6 months. However, she presented to a pelletising extruder operator due to left foot ulcer. She had a bowel drop on her foot about 3 weeks ago. She subsequently developed discoloration and swelling for which she was seen in the emergency room. Imaging done at that time was without any significant abnormality. Plan was to conservatively manage. However about a week ago. She noted an opening over the area with associated drainage/discharge. She was seen by her pelletising extruder operator and vacuum therapy was recommended. She reports a history of diabetes which is not well controlled. Last A1c per patient was around 9. She is currently on insulin. Progress of Wound: Significant lower extremity edema. She states that she has noted worsening edema since being off Lasix. Subsequent worsening of her ulcers. - Physical Exam Vital Signs Temp Pulse Resp BP 96.6 F L 52 L 18 139/72 H 12/10/18 09:07 12/10/18 09:07 12/10/18 09:07 12/10/18 09:07 General: Alert, Oriented x3, Cooperative, No apparent distress HEENT: Atraumatic, Normocephalic Oral: Moist Mucosa Neck: Supple Lungs: Normal air movement Extremities: No cyanosis, Edema Skin: Ulcer/ Wound Wound Measurements and Assessment WC - Nurse 1 - General Ulcer Measurement Start: 12/03/18 08:12 Freq: Status: Active Protocol: Activity Type Activity Date Activity User E-Sign Co-Sign Detail Recorded Client Recorded Date Recorded By Document 12/10/18 09:07 DV [id number] 12/10/18 09:20 DV 12/10/18 09:07 Wound Center Nurse 1 [Ulcer Assessment] #3 R Grt Toe Plantar -Combined with other wound No -Current Size (cm) - Length 0.3 -Current Size (cm) - Width 0.2 -Current Size (cm) - Depth 0.1 -Total Square Cm 0.06 -Photo Taken No -Epithelialization None Present -Tunneling No -Undermining/Tunneling No -Circular Undermining No -Exudate Amt None Present -Wound Margin Flat & Intact -Granulation Amt None Present (0 %) -Granulation Quality N/A -Slough/Fibrin Yes -Necrosis Amt Small (1-33%) -Necrotic Tissue Type Adherent Slough -Structure Exposed None/Limited to Skin Breakdown -Texture (Amy-wound Skin Appearance) Assessed Scarring -Moisture (Amy-wound Skin Appearance Assessed ) Weeping -Color (Amy-wound Skin Appearance) No Abnormality Assessed -Temperature (Amy-wound Skin No Abnormality Appearance) (Pt Warm) -Tenderness on Palpation (Amy-wound Yes Skin Appearance) -Ulcer Cleansing Rinsed/ Irrigated with Saline -Foul Odor after Cleansing No -Anesthetic Used 4% Lidocaine Solution #2 L Foot Dorsal -Combined with other wound No -Current Size (cm) - Length 0.6 -Current Size (cm) - Width 0.5 -Current Size (cm) - Depth 0.3 -Total Square Cm 0.30 -Photo Taken No -Epithelialization None Present -Undermining/Tunneling No -Circular Undermining No -Exudate Amt None Present -Wound Margin Flat & Intact -Granulation Amt None Present (0 %) -Granulation Quality N/A -Slough/Fibrin No -Necrotic Tissue Type Adherent Slough -Structure Exposed None/Limited to Skin Breakdown -Texture (Amy-wound Skin Appearance) Assessed Localized Edema -Moisture (Amy-wound Skin Appearance Assessed ) Weeping -Color (Amy-wound Skin Appearance) No Abnormality Assessed -Temperature (Amy-wound Skin No Abnormality Appearance) (Pt Warm) -Ulcer Cleansing Not Cleansed -Foul Odor after Cleansing No -Anesthetic Used 4% Lidocaine Solution [Edema Assessment] -Lower Limb Edema Present Yes -Right Calf (cm) 39.5 -Right Ankle (cm) 24.5 -Left Calf (cm) 38.0 -Left Ankle (cm) 24.0 WC - Nurse 2 - General Ulcer CM Notes Start: 12/03/18 08:12 Freq: Status: Active Protocol: Activity Type Activity Date Activity User E-Sign Co-Sign Detail Recorded Client Recorded Date Recorded By Document 12/10/18 09:32 MW [id number] 12/10/18 09:40 MW 12/10/18 09:32 Wound Center Nurse 2 [Procedure/Treatment] #3 R Grt Toe Plantar -Time 09:32 -Correct Patient Yes -Correct Side, Site, Position Yes -Correct Procedure Yes -Procedure Performed Yes -Type of Procedure Debridement -Clinical Debridement Subcutaneous -Post Debridement Size (cm) - Length 0.5 -Post Debridement Size (cm) - Width 0.2 -Post Debridement Size (cm) - Depth 0.2 -Total Square Cm 0.10 -Wound/Ulcer Outcome Not Healed -Ulcer Cleansing Rinsed/ Irrigated with Saline -Foul Odor after Cleansing No -Bioengineered Tissue No -Bleeding Controlled with Pressure -Offloading No -Treatment Response Procedure Tolerated Well #2 L Foot Dorsal -Time 09:33 -Correct Patient Yes -Correct Side, Site, Position Yes -Correct Procedure Yes -Procedure Performed Yes -Type of Procedure Debridement -Clinical Debridement Subcutaneous -Post Debridement Size (cm) - Length 0.5 -Post Debridement Size (cm) - Width 0.3 -Post Debridement Size (cm) - Depth 0.1 -Total Square Cm 0.15 -Wound/Ulcer Outcome Not Healed -Ulcer Cleansing Rinsed/ Irrigated with Saline -Foul Odor after Cleansing No -Bioengineered Tissue No -Bleeding Controlled with Pressure -Offloading No -Treatment Response Procedure Tolerated Well [See Physician Procedure note for Specifics] Pain Scale: 0-10 Numeric [Pain] -Is Patient Pain Free? Yes Musculoskeletal: No Muscle Wasting Neurological: Cranial nerves II-XII grossly intact Psych/Mental Status: Normal Affect Debridement Note Post-Debridement Measurements/Treatment WC - Nurse 2 - General Ulcer CM Notes Start: 12/03/18 08:12 Freq: Status: Active Protocol: Activity Type Activity Date Activity User E-Sign Co-Sign Detail Recorded Client Recorded Date Recorded By Document 12/03/18 08:32 MW [id number] 12/03/18 08:36 MW Document 12/10/18 09:32 MW [id number] 12/10/18 09:40 MW 12/03/18 12/10/18 08:32 09:32 Wound Center Nurse 2 #3 R Grt Toe Plantar -Time 08:34 09:32 -Correct Patient Yes Yes -Correct Side, Site, Position Yes Yes -Correct Procedure Yes Yes -Procedure Performed Yes Yes -Type of Procedure Debridement Debridement -Clinical Debridement Subcutaneous Subcutaneous -Post Debridement Size (cm) - Length 0.1 0.5 -Post Debridement Size (cm) - Width 0.2 0.2 -Post Debridement Size (cm) - Depth 0.1 0.2 -Total Square Cm 0.02 0.10 -Wound/Ulcer Outcome Not Healed Not Healed -Ulcer Cleansing Rinsed/ Rinsed/ Irrigated with Irrigated with Saline Saline -Foul Odor after Cleansing No No -Bioengineered Tissue No No -Bleeding Controlled with Pressure Pressure -Offloading No No -Treatment Response Procedure Procedure Tolerated Well Tolerated Well #2 L Foot Dorsal -Time 08:33 09:33 -Correct Patient Yes Yes -Correct Side, Site, Position Yes Yes -Correct Procedure Yes Yes -Procedure Performed Yes Yes -Type of Procedure Debridement Debridement -Clinical Debridement Subcutaneous Subcutaneous -Post Debridement Size (cm) - Length 0.4 0.5 -Post Debridement Size (cm) - Width 0.2 0.3 -Post Debridement Size (cm) - Depth 0.1 0.1 -Total Square Cm 0.08 0.15 -Wound/Ulcer Outcome Not Healed Not Healed -Ulcer Cleansing Rinsed/ Rinsed/ Irrigated with Irrigated with Saline Saline -Foul Odor after Cleansing No No -Bioengineered Tissue No No -Bleeding Controlled with Pressure Pressure -Offloading No No -Treatment Response Procedure Procedure Tolerated Well Tolerated Well Pain Scale: 0-10 Numeric Is Patient Pain Free? Yes Yes Wound debrided: Left foot dorsum Wound Grade/Stage: Stage III Type of Debridement: Excisional debridement Anesthesia Used: 4% Lidocaine Solution Depth: Down to and including healthy tissue, in the subcutaneous layer Percentage of wound debrided: 100 Instrument Used: 3mm curette Tissue Removed: Slough and devitalized tissue Severity: Fat Layer Exposed Amount of bleeding with debridement: Mild Bleeding Controlled with: Pressure Patient tolerated procedure well - Additional Wound Wound debrided: Right great toe Wound Grade/Stage: Stage 2 Type of Debridement: Excisional debridement Anesthesia Used: 4% Lidocaine Solution Depth: Down to and including healthy tissue, in the subcutaneous layer Percentage of wound debrided: 100 Instrument Used: 3mm curette Tissue Removed: Slough and devitalized tissue Severity: Fat Layer Exposed Amount of bleeding with debridement: Mild Bleeding Controlled with: Pressure Patient tolerated procedure: Patient tolerated procedure well Assessment/Plan Active Problems (Last Reviewed 12/10/18 @ 10:41 by JOSE ANGEL Solorio) Chronic ulcer of right great toe with fat layer exposed (Chronic) Traumatic ulcer of left foot with fat layer exposed (Chronic) Diabetes mellitus type II, uncontrolled (Chronic) Assessment: Traumatic ulcer of the left dorsal foot and chronic right great toe ulcer in a patient with poorly controlled diabetes mellitus. Plan: Significant bilateral lower extremity edema with blistering noted. Both ulcers worsened. Debridement done as documented above. Procedure was well-tolerated. Continue Promogran with Adaptic over top to both. Change daily to twice daily. Continue barrier to left lateral foot due to bony deformity. Double layer Tubigrip for edema management. Offloading strongly recommended for right lower extremity. Patient not compliant with offloading and dressing changes. Advised to follow-up with her pelletising extruder operator for proper fitting. Increased protein intake recommended. Optimal blood sugar control also strongly recommended. Due to her poor compliance with offloading and dressing changes and complex medical conditions, she has been made complex care. All her questions were answered and she was advised to call with any further questions or concerns. Follow-up in 1 week. This note was generated with [employer] software. It may contain incorrect words, spelling, and punctuation that were not noted in checking the note before signing.
--- NOTE | 2018-12-10 14:33 | PN.PCM_ITS ---
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 History of Wound: Ms. Rothman is a 78-year-old who was referred to the wound center by her lead caster for continued wound care. She has a chronic right great toe ulcer which she has been managing conservatively at home for about 6 months. However, she presented to a lead caster due to left foot ulcer. She had a bowel drop on her foot about 3 weeks ago. She subsequently developed discoloration and swelling for which she was seen in the emergency room. Imaging done at that time was without any significant abnormality. Plan was to conservatively manage. However about a week ago. She noted an opening over the area with associated drainage/discharge. She was seen by her lead caster and vacuum therapy was recommended. She reports a history of diabetes which is not well controlled. Last A1c per patient was around 9. She is currently on insulin. Progress of Wound: Significant lower extremity edema. She states that she has noted worsening edema since being off Lasix. Subsequent worsening of her ulcers. - Physical Exam Vital Signs Temp Pulse Resp BP 96.6 F L 52 L 18 139/72 H 12/10/18 09:07 12/10/18 09:07 12/10/18 09:07 12/10/18 09:07 General: Alert, Oriented x3, Cooperative, No apparent distress HEENT: Atraumatic, Normocephalic Oral: Moist Mucosa Neck: Supple Lungs: Normal air movement Extremities: No cyanosis, Edema Skin: Ulcer/ Wound Wound Measurements and Assessment WC - Nurse 1 - General Ulcer Measurement Start: 12/03/18 08:12 Freq: Status: Active Protocol: Activity Type Activity Date Activity User E-Sign Co-Sign Detail Recorded Client Recorded Date Recorded By Document 12/10/18 09:07 DV [id number] 12/10/18 09:20 DV 12/10/18 09:07 Wound Center Nurse 1 [Ulcer Assessment] #3 R Grt Toe Plantar -Combined with other wound No -Current Size (cm) - Length 0.3 -Current Size (cm) - Width 0.2 -Current Size (cm) - Depth 0.1 -Total Square Cm 0.06 -Photo Taken No -Epithelialization None Present -Tunneling No -Undermining/Tunneling No -Circular Undermining No -Exudate Amt None Present -Wound Margin Flat & Intact -Granulation Amt None Present (0 %) -Granulation Quality N/A -Slough/Fibrin Yes -Necrosis Amt Small (1-33%) -Necrotic Tissue Type Adherent Slough -Structure Exposed None/Limited to Skin Breakdown -Texture (Amy-wound Skin Appearance) Assessed Scarring -Moisture (Amy-wound Skin Appearance Assessed ) Weeping -Color (Amy-wound Skin Appearance) No Abnormality Assessed -Temperature (Amy-wound Skin No Abnormality Appearance) (Pt Warm) -Tenderness on Palpation (Amy-wound Yes Skin Appearance) -Ulcer Cleansing Rinsed/ Irrigated with Saline -Foul Odor after Cleansing No -Anesthetic Used 4% Lidocaine Solution #2 L Foot Dorsal -Combined with other wound No -Current Size (cm) - Length 0.6 -Current Size (cm) - Width 0.5 -Current Size (cm) - Depth 0.3 -Total Square Cm 0.30 -Photo Taken No -Epithelialization None Present -Undermining/Tunneling No -Circular Undermining No -Exudate Amt None Present -Wound Margin Flat & Intact -Granulation Amt None Present (0 %) -Granulation Quality N/A -Slough/Fibrin No -Necrotic Tissue Type Adherent Slough -Structure Exposed None/Limited to Skin Breakdown -Texture (Amy-wound Skin Appearance) Assessed Localized Edema -Moisture (Amy-wound Skin Appearance Assessed ) Weeping -Color (Amy-wound Skin Appearance) No Abnormality Assessed -Temperature (Amy-wound Skin No Abnormality Appearance) (Pt Warm) -Ulcer Cleansing Not Cleansed -Foul Odor after Cleansing No -Anesthetic Used 4% Lidocaine Solution [Edema Assessment] -Lower Limb Edema Present Yes -Right Calf (cm) 39.5 -Right Ankle (cm) 24.5 -Left Calf (cm) 38.0 -Left Ankle (cm) 24.0 WC - Nurse 2 - General Ulcer CM Notes Start: 12/03/18 08:12 Freq: Status: Active Protocol: Activity Type Activity Date Activity User E-Sign Co-Sign Detail Recorded Client Recorded Date Recorded By Document 12/10/18 09:32 MW [id number] 12/10/18 09:40 MW 12/10/18 09:32 Wound Center Nurse 2 [Procedure/Treatment] #3 R Grt Toe Plantar -Time 09:32 -Correct Patient Yes -Correct Side, Site, Position Yes -Correct Procedure Yes -Procedure Performed Yes -Type of Procedure Debridement -Clinical Debridement Subcutaneous -Post Debridement Size (cm) - Length 0.5 -Post Debridement Size (cm) - Width 0.2 -Post Debridement Size (cm) - Depth 0.2 -Total Square Cm 0.10 -Wound/Ulcer Outcome Not Healed -Ulcer Cleansing Rinsed/ Irrigated with Saline -Foul Odor after Cleansing No -Bioengineered Tissue No -Bleeding Controlled with Pressure -Offloading No -Treatment Response Procedure Tolerated Well #2 L Foot Dorsal -Time 09:33 -Correct Patient Yes -Correct Side, Site, Position Yes -Correct Procedure Yes -Procedure Performed Yes -Type of Procedure Debridement -Clinical Debridement Subcutaneous -Post Debridement Size (cm) - Length 0.5 -Post Debridement Size (cm) - Width 0.3 -Post Debridement Size (cm) - Depth 0.1 -Total Square Cm 0.15 -Wound/Ulcer Outcome Not Healed -Ulcer Cleansing Rinsed/ Irrigated with Saline -Foul Odor after Cleansing No -Bioengineered Tissue No -Bleeding Controlled with Pressure -Offloading No -Treatment Response Procedure Tolerated Well [See Physician Procedure note for Specifics] Pain Scale: 0-10 Numeric [Pain] -Is Patient Pain Free? Yes Musculoskeletal: No Muscle Wasting Neurological: Cranial nerves II-XII grossly intact Psych/Mental Status: Normal Affect Debridement Note Post-Debridement Measurements/Treatment WC - Nurse 2 - General Ulcer CM Notes Start: 12/03/18 08:12 Freq: Status: Active Protocol: Activity Type Activity Date Activity User E-Sign Co-Sign Detail Recorded Client Recorded Date Recorded By Document 12/03/18 08:32 MW [id number] 12/03/18 08:36 MW Document 12/10/18 09:32 MW [id number] 12/10/18 09:40 MW 12/03/18 12/10/18 08:32 09:32 Wound Center Nurse 2 #3 R Grt Toe Plantar -Time 08:34 09:32 -Correct Patient Yes Yes -Correct Side, Site, Position Yes Yes -Correct Procedure Yes Yes -Procedure Performed Yes Yes -Type of Procedure Debridement Debridement -Clinical Debridement Subcutaneous Subcutaneous -Post Debridement Size (cm) - Length 0.1 0.5 -Post Debridement Size (cm) - Width 0.2 0.2 -Post Debridement Size (cm) - Depth 0.1 0.2 -Total Square Cm 0.02 0.10 -Wound/Ulcer Outcome Not Healed Not Healed -Ulcer Cleansing Rinsed/ Rinsed/ Irrigated with Irrigated with Saline Saline -Foul Odor after Cleansing No No -Bioengineered Tissue No No -Bleeding Controlled with Pressure Pressure -Offloading No No -Treatment Response Procedure Procedure Tolerated Well Tolerated Well #2 L Foot Dorsal -Time 08:33 09:33 -Correct Patient Yes Yes -Correct Side, Site, Position Yes Yes -Correct Procedure Yes Yes -Procedure Performed Yes Yes -Type of Procedure Debridement Debridement -Clinical Debridement Subcutaneous Subcutaneous -Post Debridement Size (cm) - Length 0.4 0.5 -Post Debridement Size (cm) - Width 0.2 0.3 -Post Debridement Size (cm) - Depth 0.1 0.1 -Total Square Cm 0.08 0.15 -Wound/Ulcer Outcome Not Healed Not Healed -Ulcer Cleansing Rinsed/ Rinsed/ Irrigated with Irrigated with Saline Saline -Foul Odor after Cleansing No No -Bioengineered Tissue No No -Bleeding Controlled with Pressure Pressure -Offloading No No -Treatment Response Procedure Procedure Tolerated Well Tolerated Well Pain Scale: 0-10 Numeric Is Patient Pain Free? Yes Yes Wound debrided: Left foot dorsum Wound Grade/Stage: Stage III Type of Debridement: Excisional debridement Anesthesia Used: 4% Lidocaine Solution Depth: Down to and including healthy tissue, in the subcutaneous layer Percentage of wound debrided: 100 Instrument Used: 3mm curette Tissue Removed: Slough and devitalized tissue Severity: Fat Layer Exposed Amount of bleeding with debridement: Mild Bleeding Controlled with: Pressure Patient tolerated procedure well - Additional Wound Wound debrided: Right great toe Wound Grade/Stage: Stage 2 Type of Debridement: Excisional debridement Anesthesia Used: 4% Lidocaine Solution Depth: Down to and including healthy tissue, in the subcutaneous layer Percentage of wound debrided: 100 Instrument Used: 3mm curette Tissue Removed: Slough and devitalized tissue Severity: Fat Layer Exposed Amount of bleeding with debridement: Mild Bleeding Controlled with: Pressure Patient tolerated procedure: Patient tolerated procedure well Assessment/Plan Active Problems (Last Reviewed 12/10/18 @ 10:41 by JOSE ANGEL Solorio) Chronic ulcer of right great toe with fat layer exposed (Chronic) Traumatic ulcer of left foot with fat layer exposed (Chronic) Diabetes mellitus type II, uncontrolled (Chronic) Assessment: Traumatic ulcer of the left dorsal foot and chronic right great toe ulcer in a patient with poorly controlled diabetes mellitus. Plan: Significant bilateral lower extremity edema with blistering noted. Both ulcers worsened. Debridement done as documented above. Procedure was well- tolerated. Continue Promogran with Adaptic over top to both. Change daily to twice daily. Continue barrier to left lateral foot due to bony deformity. Double layer Tubigrip for edema management. Offloading strongly recommended for right lower extremity. Patient not compliant with offloading and dressing changes. Advised to follow-up with her lead caster for proper fitting. Increased protein intake recommended. Optimal blood sugar control also strongly recommended. Due to her poor compliance with offloading and dressing changes and complex medical conditions, she has been made complex care. All her questions were answered and she was advised to call with any further questions or concerns. Follow-up in 1 week. This note was generated with [employer] software. It may contain incorrect words, spelling, and punctuation that were not noted in checking the note before signing.
[2018-12-17 08:12] VITALS: BP 137/69; PULSE 57; RESP 18; TEMP 36.3; BMI 30.3
--- NOTE | 2018-12-17 09:07 | PCM.WC.PN ---
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 Status: Chronic Current Visit: Yes Code(s): L97.512 - Non-pressure chronic ulcer of other part of right foot with fat layer exposed (2) Diabetes mellitus type II, uncontrolled Status: Deleted Current Visit: Yes Code(s): E11.65 - Type 2 diabetes mellitus with hyperglycemia (3) Traumatic ulcer of left foot with fat layer exposed Status: Chronic Current Visit: Yes Code(s): L97.522 - Non-pressure chronic ulcer of other part of left foot with fat layer exposed (4) Venous insufficiency of both lower extremities Status: Acute Current Visit: Yes Code(s): I87.2 - Venous insufficiency (chronic) (peripheral) (5) Ulcer of left lower extremity with fat layer exposed Status: Acute Current Visit: Yes Code(s): L97.922 - Non-pressure chronic ulcer of unspecified part of left lower leg with fat layer exposed Type of Wound Chief Complaint: Traumatic ulceration of left foot and chronic right great toe ulcer. History of Wound: Ms. Rothman is a 78-year-old who was referred to the wound center by her chassis driver for continued wound care. She has a chronic right great toe ulcer which she has been managing conservatively at home for about 6 months. However, she presented to a chassis driver due to left foot ulcer. She had a bowel drop on her foot about 3 weeks ago. She subsequently developed discoloration and swelling for which she was seen in the emergency room. Imaging done at that time was without any significant abnormality. Plan was to conservatively manage. However about a week ago. She noted an opening over the area with associated drainage/discharge. She was seen by her chassis driver and vacuum therapy was recommended. She reports a history of diabetes which is not well controlled. Last A1c per patient was around 9. She is currently on insulin. Progress of Wound: Ms. Rothman presents with persistent lower extremity edema and New left lower extremity ulcerations. 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 Also not elevating her lower extremities as recommended. Right great toe ulcer with no improvement and worsening of the left foot edema and ulceration. - Physical Exam Vital Signs Temp Pulse Resp BP 97.3 F L 57 L 18 137/69 H 12/17/18 08:12 12/17/18 08:12 12/17/18 08:12 12/17/18 08:12 General: Alert, Oriented x3, Cooperative, No apparent distress HEENT: Atraumatic, Normocephalic Oral: Moist Mucosa Neck: Supple Lungs: Normal air movement Extremities: No cyanosis, Edema Skin: Ulcer/ Wound Wound Measurements and Assessment WC - Nurse 1 - General Ulcer Measurement Start: 12/03/18 08:12 Freq: Status: Active Protocol: Activity Type Activity Date Activity User E-Sign Co-Sign Detail Recorded Client Recorded Date Recorded By Document 12/17/18 08:12 DL [id number] 12/17/18 08:28 DL 12/17/18 08:12 Wound Center Nurse 1 [Ulcer Assessment] #6 L Med Lower Leg Sup -Current Size (cm) - Length 0.8 -Current Size (cm) - Width 0.4 -Current Size (cm) - Depth 0.3 -Total Square Cm 0.32 -Photo Taken Yes -Exudate Amt Small -Exudate Type Serosanguineous -Wound Margin Distinct, Outline Attached -Granulation Amt Medium (34-66%) -Granulation Quality Red -Necrosis Amt Small (1-33%) -Necrotic Tissue Type Adherent Slough -Structure Exposed N/A -Texture (Amy-wound Skin Appearance) Localized Edema Scarring -Moisture (Amy-wound Skin Appearance No Abnormality ) -Color (Amy-wound Skin Appearance) Hemosiderin Staining -Temperature (Amy-wound Skin No Abnormality Appearance) (Pt Warm) -Tenderness on Palpation (Amy-wound No Skin Appearance) -Ulcer Cleansing Wound Cleanser -Foul Odor after Cleansing No -Anesthetic Used 4% Lidocaine Solution #5 L Med Lower Leg -Current Size (cm) - Length 2.4 -Current Size (cm) - Width 4 -Current Size (cm) - Depth 0.1 -Total Square Cm 9.6 -Photo Taken Yes -Exudate Amt Medium -Exudate Type Serosanguineous -Wound Margin Distinct, Outline Attached -Granulation Amt Large (67-100%) -Granulation Quality Red -Necrosis Amt None Present (0 %) -Structure Exposed N/A -Texture (Amy-wound Skin Appearance) Localized Edema -Moisture (Amy-wound Skin Appearance No Abnormality ) -Color (Amy-wound Skin Appearance) Hemosiderin Staining -Temperature (Amy-wound Skin No Abnormality Appearance) (Pt Warm) -Tenderness on Palpation (Amy-wound No Skin Appearance) -Ulcer Cleansing Wound Cleanser -Foul Odor after Cleansing No -Anesthetic Used 4% Lidocaine Solution #3 R Grt Toe Plantar -Current Size (cm) - Length 0.4 -Current Size (cm) - Width 0.4 -Current Size (cm) - Depth 0.2 -Total Square Cm 0.16 -Photo Taken No -Undermining/Tunneling Starts (O' 6 clock) -Undermining/Tunneling Ends (O'clock) 12 -Maximum Distance (cm) 0.1 -Exudate Amt Small -Exudate Type Serosanguineous -Wound Margin Distinct, Outline Attached -Granulation Amt Small (1-33%) -Granulation Quality Red -Necrosis Amt None Present (0 %) -Structure Exposed N/A -Texture (Amy-wound Skin Appearance) Scarring -Moisture (Amy-wound Skin Appearance No Abnormality ) -Color (Amy-wound Skin Appearance) No Abnormality -Temperature (Amy-wound Skin No Abnormality Appearance) (Pt Warm) -Tenderness on Palpation (Amy-wound No Skin Appearance) -Ulcer Cleansing Wound Cleanser -Foul Odor after Cleansing No -Anesthetic Used 4% Lidocaine Solution #2 L Foot Dorsal -Current Size (cm) - Length 0.7 -Current Size (cm) - Width 0.4 -Current Size (cm) - Depth 0.1 -Total Square Cm 0.28 -Photo Taken No -Exudate Amt Small -Exudate Type Serosanguineous -Wound Margin Distinct, Outline Attached -Granulation Amt Large (67-100%) -Granulation Quality [place] -Necrosis Amt Small (1-33%) -Necrotic Tissue Type Adherent Slough -Structure Exposed N/A -Texture (Amy-wound Skin Appearance) Localized Edema Scarring -Moisture (Amy-wound Skin Appearance No Abnormality ) -Color (Amy-wound Skin Appearance) Hemosiderin Staining -Temperature (Amy-wound Skin No Abnormality Appearance) (Pt Warm) -Tenderness on Palpation (Amy-wound No Skin Appearance) -Ulcer Cleansing Wound Cleanser -Foul Odor after Cleansing No -Anesthetic Used 4% Lidocaine Solution [Edema Assessment] -Right Calf (cm) 40.4 -Right Ankle (cm) 25.4 -Left Calf (cm) 40.5 -Left Ankle (cm) 22.7 WC - Nurse 2 - General Ulcer CM Notes Start: 12/03/18 08:12 Freq: Status: Active Protocol: Activity Type Activity Date Activity User E-Sign Co-Sign Detail Recorded Client Recorded Date Recorded By Document 12/17/18 08:44 MW [id number] 12/17/18 09:00 MW 12/17/18 08:44 Wound Center Nurse 2 [Procedure/Treatment] #6 L Med Lower Leg Sup -Time 08:52 -Correct Patient Yes -Correct Side, Site, Position Yes -Correct Procedure Yes -Procedure Performed Yes -Type of Procedure Debridement -Clinical Debridement Subcutaneous -Post Debridement Size (cm) - Length 1.0 -Post Debridement Size (cm) - Width 0.5 -Post Debridement Size (cm) - Depth 0.1 -Total Square Cm 0.50 -Wound/Ulcer Outcome Not Healed -Ulcer Cleansing Rinsed/ Irrigated with Saline -Foul Odor after Cleansing No -Bioengineered Tissue No -Bleeding Controlled with Pressure -Offloading No -Treatment Response Procedure Tolerated Well #5 L Med Lower Leg -Time 08:52 -Correct Patient Yes -Correct Side, Site, Position Yes -Correct Procedure Yes -Procedure Performed Yes -Type of Procedure Debridement -Clinical Debridement Subcutaneous -Post Debridement Size (cm) - Length 4.0 -Post Debridement Size (cm) - Width 5.7 -Post Debridement Size (cm) - Depth 0.1 -Total Square Cm 22.80 -Wound/Ulcer Outcome Not Healed -Ulcer Cleansing Rinsed/ Irrigated with Saline -Foul Odor after Cleansing No -Bioengineered Tissue No -Bleeding Controlled with Pressure -Offloading No -Treatment Response Procedure Tolerated Well #3 R Grt Toe Plantar -Time 08:47 -Correct Patient Yes -Correct Side, Site, Position Yes -Correct Procedure Yes -Procedure Performed Yes -Type of Procedure Debridement -Clinical Debridement Subcutaneous -Post Debridement Size (cm) - Length 0.5 -Post Debridement Size (cm) - Width 0.5 -Post Debridement Size (cm) - Depth 0.2 -Total Square Cm 0.25 -Wound/Ulcer Outcome Not Healed -Ulcer Cleansing Rinsed/ Irrigated with Saline -Foul Odor after Cleansing No -Bioengineered Tissue No -Bleeding Controlled with Pressure -Offloading No -Treatment Response Procedure Tolerated Well #2 L Foot Dorsal -Time 08:48 -Correct Patient Yes -Correct Side, Site, Position Yes -Correct Procedure Yes -Procedure Performed Yes -Type of Procedure Debridement -Clinical Debridement Subcutaneous -Post Debridement Size (cm) - Length 0.8 -Post Debridement Size (cm) - Width 0.4 -Post Debridement Size (cm) - Depth 0.1 -Total Square Cm 0.32 -Wound/Ulcer Outcome Not Healed -Ulcer Cleansing Rinsed/ Irrigated with Saline -Foul Odor after Cleansing No -Bioengineered Tissue No -Bleeding Controlled with Pressure -Offloading No -Treatment Response Procedure Tolerated Well [See Physician Procedure note for Specifics] Pain Scale: 0-10 Numeric [Pain] -Is Patient Pain Free? Yes Musculoskeletal: No Muscle Wasting Neurological: Cranial nerves II-XII grossly intact Psych/Mental Status: Normal Affect Debridement Note Post-Debridement Measurements/Treatment WC - Nurse 2 - General Ulcer CM Notes Start: 12/03/18 08:12 Freq: Status: Active Protocol: Activity Type Activity Date Activity User E-Sign Co-Sign Detail Recorded Client Recorded Date Recorded By Document 12/03/18 08:32 MW [id number] 12/03/18 08:36 MW Document 12/10/18 09:32 MW [id number] 12/10/18 09:40 MW Document 12/17/18 08:44 MW [id number] 12/17/18 09:00 MW 12/03/18 12/10/18 12/17/18 08:32 09:32 08:44 Wound Center Nurse 2 #6 L Med Lower Leg Sup -Time 08:52 -Correct Patient Yes -Correct Side, Site, Position Yes -Correct Procedure Yes -Procedure Performed Yes -Type of Procedure Debridement -Clinical Debridement Subcutaneous -Post Debridement Size (cm) - Length 1.0 -Post Debridement Size (cm) - Width 0.5 -Post Debridement Size (cm) - Depth 0.1 -Total Square Cm 0.50 -Wound/Ulcer Outcome Not Healed -Ulcer Cleansing Rinsed/ Irrigated with Saline -Foul Odor after Cleansing No -Bioengineered Tissue No -Bleeding Controlled with Pressure -Offloading No -Treatment Response Procedure Tolerated Well #5 L Med Lower Leg -Time 08:52 -Correct Patient Yes -Correct Side, Site, Position Yes -Correct Procedure Yes -Procedure Performed Yes -Type of Procedure Debridement -Clinical Debridement Subcutaneous -Post Debridement Size (cm) - Length 4.0 -Post Debridement Size (cm) - Width 5.7 -Post Debridement Size (cm) - Depth 0.1 -Total Square Cm 22.80 -Wound/Ulcer Outcome Not Healed -Ulcer Cleansing Rinsed/ Irrigated with Saline -Foul Odor after Cleansing No -Bioengineered Tissue No -Bleeding Controlled with Pressure -Offloading No -Treatment Response Procedure Tolerated Well #3 R Grt Toe Plantar -Time 08:34 09:32 08:47 -Correct Patient Yes Yes Yes -Correct Side, Site, Position Yes Yes Yes -Correct Procedure Yes Yes Yes -Procedure Performed Yes Yes Yes -Type of Procedure Debridement Debridement Debridement -Clinical Debridement Subcutaneous Subcutaneous Subcutaneous -Post Debridement Size (cm) - Length 0.1 0.5 0.5 -Post Debridement Size (cm) - Width 0.2 0.2 0.5 -Post Debridement Size (cm) - Depth 0.1 0.2 0.2 -Total Square Cm 0.02 0.10 0.25 -Wound/Ulcer Outcome Not Healed Not Healed Not Healed -Ulcer Cleansing Rinsed/ Rinsed/ Rinsed/ Irrigated with Irrigated with Irrigated with Saline Saline Saline -Foul Odor after Cleansing No No No -Bioengineered Tissue No No No -Bleeding Controlled with Pressure Pressure Pressure -Offloading No No No -Treatment Response Procedure Procedure Procedure Tolerated Well Tolerated Well Tolerated Well #2 L Foot Dorsal -Time 08:33 09:33 08:48 -Correct Patient Yes Yes Yes -Correct Side, Site, Position Yes Yes Yes -Correct Procedure Yes Yes Yes -Procedure Performed Yes Yes Yes -Type of Procedure Debridement Debridement Debridement -Clinical Debridement Subcutaneous Subcutaneous Subcutaneous -Post Debridement Size (cm) - Length 0.4 0.5 0.8 -Post Debridement Size (cm) - Width 0.2 0.3 0.4 -Post Debridement Size (cm) - Depth 0.1 0.1 0.1 -Total Square Cm 0.08 0.15 0.32 -Wound/Ulcer Outcome Not Healed Not Healed Not Healed -Ulcer Cleansing Rinsed/ Rinsed/ Rinsed/ Irrigated with Irrigated with Irrigated with Saline Saline Saline -Foul Odor after Cleansing No No No -Bioengineered Tissue No No No -Bleeding Controlled with Pressure Pressure Pressure -Offloading No No No -Treatment Response Procedure Procedure Procedure Tolerated Well Tolerated Well Tolerated Well Pain Scale: 0-10 Numeric Is Patient Pain Free? Yes Yes Yes Wound debrided: Right great toe Wound Grade/Stage: Stage II Type of Debridement: Excisional debridement Anesthesia Used: 4% Lidocaine Solution Depth: Down to and including healthy tissue, in the subcutaneous layer Percentage of wound debrided: 100 Instrument Used: 3mm curette, #15 blade, Forceps Tissue Removed: Slough and devitalized tissue Severity: Fat Layer Exposed Amount of bleeding with debridement: Moderate Bleeding Controlled with: Pressure, Gel Foam Patient tolerated procedure well - Additional Wound Wound debrided: Left foot Wound Grade/Stage: Stage III Type of Debridement: Excisional debridement Anesthesia Used: 4% Lidocaine Solution Depth: Down to and including healthy tissue, in the subcutaneous layer Percentage of wound debrided: 100 Instrument Used: 3mm curette Tissue Removed: Slough and devitalized tissue Severity: Fat Layer Exposed Amount of bleeding with debridement: Mild Bleeding Controlled with: Pressure Patient tolerated procedure: Patient tolerated procedure well - Additional Wound Wound debrided: Left lower extremity inferior Wound Grade/Stage: Stage II Type of Debridement: Excisional debridement Anesthesia Used: 4% Lidocaine Solution Depth: Down to and including healthy tissue, in the subcutaneous layer Instrument Used: 5mm curette, #15 blade, Forceps Tissue Removed: Slough and devitalized tissue Severity: Fat Layer Exposed Amount of bleeding with debridement: Mild Bleeding Controlled with: Pressure Patient tolerated procedure: Patient tolerated procedure well - Additional Wound Wound debrided: Left lower extremity superior Wound Grade/Stage: Stage II Type of Debridement: Excisional debridement Anesthesia Used: 4% Lidocaine Solution Depth: Down to and including healthy tissue, in the subcutaneous layer Percentage of wound debrided: 100 Instrument Used: 5mm curette Tissue Removed: Slough and devitalized tissue Severity: Fat Layer Exposed Amount of bleeding with debridement: Mild Bleeding Controlled with: Pressure Patient tolerated procedure: Patient tolerated procedure well Assessment/Plan Active Problems (Last Reviewed 12/11/18 @ 11:55 by Beto Dennis MD) Venous insufficiency of both lower extremities (Acute) Ulcer of left lower extremity with fat layer exposed (Acute) Chronic ulcer of right great toe with fat layer exposed (Chronic) Traumatic ulcer of left foot with fat layer exposed (Chronic) Assessment: Traumatic ulcer of the left dorsal foot and chronic right great toe ulcer in a patient with poorly controlled diabetes mellitus. Plan: Still has significant bilateral lower extremity edema with worsening left foot edema. Worsening of all ulcers. New left lower extremity ulcers. Debridement done as documented above. Procedure was well-tolerated. Continue Promogran with Adaptic over top right great toe and left dorsal foot ulcer. Change daily to twice daily. Aquacel extra with ABD over top to left lower extremity superior and inferior ulcers. Change daily. Continue barrier to left lateral foot due to bony deformity. Surepress for edema management. Offloading strongly recommended for right lower extremity. Patient not compliant with offloading and dressing changes. Advised to follow-up with her chassis driver for proper fitting. Increased protein intake recommended. Optimal blood sugar control also strongly recommended. Due to her poor compliance with offloading and dressing changes and complex medical conditions, she has been made complex care. Surgifoam applied to right great toe due to moderate bleeding. No significant bleeding prior to leaving the wound center. Advised to remove at home and apply Promogran. If bleeding occurs at home, he was advised to put pressure over right great toe for at least 30 minutes. Also advised to call with any concerns. All her questions were answered and she was advised to call with any further questions or concerns. Follow-up in 1 week. This note was generated with [employer] dictation software. It may contain incorrect words, spelling, and punctuation that were not noted in checking the note before signing.
--- NOTE | 2018-12-17 09:14 | PN.PCM_ITS ---
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 Status: Chronic Current Visit: Yes Code(s): L97.512 - Non-pressure chronic ulcer of other part of right foot with fat layer exposed (2) Diabetes mellitus type II, uncontrolled Status: Deleted Current Visit: Yes Code(s): E11.65 - Type 2 diabetes mellitus with hyperglycemia (3) Traumatic ulcer of left foot with fat layer exposed Status: Chronic Current Visit: Yes Code(s): L97.522 - Non-pressure chronic ulcer of other part of left foot with fat layer exposed (4) Venous insufficiency of both lower extremities Status: Acute Current Visit: Yes Code(s): I87.2 - Venous insufficiency (chronic) (peripheral) (5) Ulcer of left lower extremity with fat layer exposed Status: Acute Current Visit: Yes Code(s): L97.922 - Non-pressure chronic ulcer of unspecified part of left lower leg with fat layer exposed Type of Wound Chief Complaint: Traumatic ulceration of left foot and chronic right great toe ulcer. History of Wound: Ms. Rothman is a 78-year-old who was referred to the wound center by her lighting technician for continued wound care. She has a chronic right great toe ulcer which she has been managing conservatively at home for about 6 months. However, she presented to a lighting technician due to left foot ulcer. She had a bowel drop on her foot about 3 weeks ago. She subsequently developed discoloration and swelling for which she was seen in the emergency room. Imaging done at that time was without any significant abnormality. Plan was to conservatively manage. However about a week ago. She noted an opening over the area with associated drainage/discharge. She was seen by her lighting technician and vacuum therapy was recommended. She reports a history of diabetes which is not well controlled. Last A1c per patient was around 9. She is currently on insulin. Progress of Wound: Ms. Rothman presents with persistent lower extremity edema and New left lower extremity ulcerations. She states that she is now back on her Lasix however has not utilized her immersion metalcleaner as well. Also not elevating her lower extremities as recommended. Right great toe ulcer with no improvement and worsening of the left foot edema and ulceration. - Physical Exam Vital Signs Temp Pulse Resp BP 97.3 F L 57 L 18 137/69 H 12/17/18 08:12 12/17/18 08:12 12/17/18 08:12 12/17/18 08:12 General: Alert, Oriented x3, Cooperative, No apparent distress HEENT: Atraumatic, Normocephalic Oral: Moist Mucosa Neck: Supple Lungs: Normal air movement Extremities: No cyanosis, Edema Skin: Ulcer/ Wound Wound Measurements and Assessment WC - Nurse 1 - General Ulcer Measurement Start: 12/03/18 08:12 Freq: Status: Active Protocol: Activity Type Activity Date Activity User E-Sign Co-Sign Detail Recorded Client Recorded Date Recorded By Document 12/17/18 08:12 DL [id number] 12/17/18 08:28 DL 12/17/18 08:12 Wound Center Nurse 1 [Ulcer Assessment] #6 L Med Lower Leg Sup -Current Size (cm) - Length 0.8 -Current Size (cm) - Width 0.4 -Current Size (cm) - Depth 0.3 -Total Square Cm 0.32 -Photo Taken Yes -Exudate Amt Small -Exudate Type Serosanguineous -Wound Margin Distinct, Outline Attached -Granulation Amt Medium (34-66%) -Granulation Quality Red -Necrosis Amt Small (1-33%) -Necrotic Tissue Type Adherent Slough -Structure Exposed N/A -Texture (Amy-wound Skin Appearance) Localized Edema Scarring -Moisture (Amy-wound Skin Appearance No Abnormality ) -Color (Amy-wound Skin Appearance) Hemosiderin Staining -Temperature (Amy-wound Skin No Abnormality Appearance) (Pt Warm) -Tenderness on Palpation (Amy-wound No Skin Appearance) -Ulcer Cleansing Wound Cleanser -Foul Odor after Cleansing No -Anesthetic Used 4% Lidocaine Solution #5 L Med Lower Leg -Current Size (cm) - Length 2.4 -Current Size (cm) - Width 4 -Current Size (cm) - Depth 0.1 -Total Square Cm 9.6 -Photo Taken Yes -Exudate Amt Medium -Exudate Type Serosanguineous -Wound Margin Distinct, Outline Attached -Granulation Amt Large (67-100%) -Granulation Quality Red -Necrosis Amt None Present (0 %) -Structure Exposed N/A -Texture (Amy-wound Skin Appearance) Localized Edema -Moisture (Amy-wound Skin Appearance No Abnormality ) -Color (Amy-wound Skin Appearance) Hemosiderin Staining -Temperature (Amy-wound Skin No Abnormality Appearance) (Pt Warm) -Tenderness on Palpation (Amy-wound No Skin Appearance) -Ulcer Cleansing Wound Cleanser -Foul Odor after Cleansing No -Anesthetic Used 4% Lidocaine Solution #3 R Grt Toe Plantar -Current Size (cm) - Length 0.4 -Current Size (cm) - Width 0.4 -Current Size (cm) - Depth 0.2 -Total Square Cm 0.16 -Photo Taken No -Undermining/Tunneling Starts (O' 6 clock) -Undermining/Tunneling Ends (O'clock) 12 -Maximum Distance (cm) 0.1 -Exudate Amt Small -Exudate Type Serosanguineous -Wound Margin Distinct, Outline Attached -Granulation Amt Small (1-33%) -Granulation Quality Red -Necrosis Amt None Present (0 %) -Structure Exposed N/A -Texture (Amy-wound Skin Appearance) Scarring -Moisture (Amy-wound Skin Appearance No Abnormality ) -Color (Amy-wound Skin Appearance) No Abnormality -Temperature (Amy-wound Skin No Abnormality Appearance) (Pt Warm) -Tenderness on Palpation (Amy-wound No Skin Appearance) -Ulcer Cleansing Wound Cleanser -Foul Odor after Cleansing No -Anesthetic Used 4% Lidocaine Solution #2 L Foot Dorsal -Current Size (cm) - Length 0.7 -Current Size (cm) - Width 0.4 -Current Size (cm) - Depth 0.1 -Total Square Cm 0.28 -Photo Taken No -Exudate Amt Small -Exudate Type Serosanguineous -Wound Margin Distinct, Outline Attached -Granulation Amt Large (67-100%) -Granulation Quality [place] -Necrosis Amt Small (1-33%) -Necrotic Tissue Type Adherent Slough -Structure Exposed N/A -Texture (Amy-wound Skin Appearance) Localized Edema Scarring -Moisture (Amy-wound Skin Appearance No Abnormality ) -Color (Amy-wound Skin Appearance) Hemosiderin Staining -Temperature (Amy-wound Skin No Abnormality Appearance) (Pt Warm) -Tenderness on Palpation (Amy-wound No Skin Appearance) -Ulcer Cleansing Wound Cleanser -Foul Odor after Cleansing No -Anesthetic Used 4% Lidocaine Solution [Edema Assessment] -Right Calf (cm) 40.4 -Right Ankle (cm) 25.4 -Left Calf (cm) 40.5 -Left Ankle (cm) 22.7 WC - Nurse 2 - General Ulcer CM Notes Start: 12/03/18 08:12 Freq: Status: Active Protocol: Activity Type Activity Date Activity User E-Sign Co-Sign Detail Recorded Client Recorded Date Recorded By Document 12/17/18 08:44 MW [id number] 12/17/18 09:00 MW 12/17/18 08:44 Wound Center Nurse 2 [Procedure/Treatment] #6 L Med Lower Leg Sup -Time 08:52 -Correct Patient Yes -Correct Side, Site, Position Yes -Correct Procedure Yes -Procedure Performed Yes -Type of Procedure Debridement -Clinical Debridement Subcutaneous -Post Debridement Size (cm) - Length 1.0 -Post Debridement Size (cm) - Width 0.5 -Post Debridement Size (cm) - Depth 0.1 -Total Square Cm 0.50 -Wound/Ulcer Outcome Not Healed -Ulcer Cleansing Rinsed/ Irrigated with Saline -Foul Odor after Cleansing No -Bioengineered Tissue No -Bleeding Controlled with Pressure -Offloading No -Treatment Response Procedure Tolerated Well #5 L Med Lower Leg -Time 08:52 -Correct Patient Yes -Correct Side, Site, Position Yes -Correct Procedure Yes -Procedure Performed Yes -Type of Procedure Debridement -Clinical Debridement Subcutaneous -Post Debridement Size (cm) - Length 4.0 -Post Debridement Size (cm) - Width 5.7 -Post Debridement Size (cm) - Depth 0.1 -Total Square Cm 22.80 -Wound/Ulcer Outcome Not Healed -Ulcer Cleansing Rinsed/ Irrigated with Saline -Foul Odor after Cleansing No -Bioengineered Tissue No -Bleeding Controlled with Pressure -Offloading No -Treatment Response Procedure Tolerated Well #3 R Grt Toe Plantar -Time 08:47 -Correct Patient Yes -Correct Side, Site, Position Yes -Correct Procedure Yes -Procedure Performed Yes -Type of Procedure Debridement -Clinical Debridement Subcutaneous -Post Debridement Size (cm) - Length 0.5 -Post Debridement Size (cm) - Width 0.5 -Post Debridement Size (cm) - Depth 0.2 -Total Square Cm 0.25 -Wound/Ulcer Outcome Not Healed -Ulcer Cleansing Rinsed/ Irrigated with Saline -Foul Odor after Cleansing No -Bioengineered Tissue No -Bleeding Controlled with Pressure -Offloading No -Treatment Response Procedure Tolerated Well #2 L Foot Dorsal -Time 08:48 -Correct Patient Yes -Correct Side, Site, Position Yes -Correct Procedure Yes -Procedure Performed Yes -Type of Procedure Debridement -Clinical Debridement Subcutaneous -Post Debridement Size (cm) - Length 0.8 -Post Debridement Size (cm) - Width 0.4 -Post Debridement Size (cm) - Depth 0.1 -Total Square Cm 0.32 -Wound/Ulcer Outcome Not Healed -Ulcer Cleansing Rinsed/ Irrigated with Saline -Foul Odor after Cleansing No -Bioengineered Tissue No -Bleeding Controlled with Pressure -Offloading No -Treatment Response Procedure Tolerated Well [See Physician Procedure note for Specifics] Pain Scale: 0-10 Numeric [Pain] -Is Patient Pain Free? Yes Musculoskeletal: No Muscle Wasting Neurological: Cranial nerves II-XII grossly intact Psych/Mental Status: Normal Affect Debridement Note Post-Debridement Measurements/Treatment WC - Nurse 2 - General Ulcer CM Notes Start: 12/03/18 08:12 Freq: Status: Active Protocol: Activity Type Activity Date Activity User E-Sign Co-Sign Detail Recorded Client Recorded Date Recorded By Document 12/03/18 08:32 MW [id number] 12/03/18 08:36 MW Document 12/10/18 09:32 MW [id number] 12/10/18 09:40 MW Document 12/17/18 08:44 MW [id number] 12/17/18 09:00 MW 12/03/18 12/10/18 12/17/18 08:32 09:32 08:44 Wound Center Nurse 2 #6 L Med Lower Leg Sup -Time 08:52 -Correct Patient Yes -Correct Side, Site, Position Yes -Correct Procedure Yes -Procedure Performed Yes -Type of Procedure Debridement -Clinical Debridement Subcutaneous -Post Debridement Size (cm) - Length 1.0 -Post Debridement Size (cm) - Width 0.5 -Post Debridement Size (cm) - Depth 0.1 -Total Square Cm 0.50 -Wound/Ulcer Outcome Not Healed -Ulcer Cleansing Rinsed/ Irrigated with Saline -Foul Odor after Cleansing No -Bioengineered Tissue No -Bleeding Controlled with Pressure -Offloading No -Treatment Response Procedure Tolerated Well #5 L Med Lower Leg -Time 08:52 -Correct Patient Yes -Correct Side, Site, Position Yes -Correct Procedure Yes -Procedure Performed Yes -Type of Procedure Debridement -Clinical Debridement Subcutaneous -Post Debridement Size (cm) - Length 4.0 -Post Debridement Size (cm) - Width 5.7 -Post Debridement Size (cm) - Depth 0.1 -Total Square Cm 22.80 -Wound/Ulcer Outcome Not Healed -Ulcer Cleansing Rinsed/ Irrigated with Saline -Foul Odor after Cleansing No -Bioengineered Tissue No -Bleeding Controlled with Pressure -Offloading No -Treatment Response Procedure Tolerated Well #3 R Grt Toe Plantar -Time 08:34 09:32 08:47 -Correct Patient Yes Yes Yes -Correct Side, Site, Position Yes Yes Yes -Correct Procedure Yes Yes Yes -Procedure Performed Yes Yes Yes -Type of Procedure Debridement Debridement Debridement -Clinical Debridement Subcutaneous Subcutaneous Subcutaneous -Post Debridement Size (cm) - Length 0.1 0.5 0.5 -Post Debridement Size (cm) - Width 0.2 0.2 0.5 -Post Debridement Size (cm) - Depth 0.1 0.2 0.2 -Total Square Cm 0.02 0.10 0.25 -Wound/Ulcer Outcome Not Healed Not Healed Not Healed -Ulcer Cleansing Rinsed/ Rinsed/ Rinsed/ Irrigated with Irrigated with Irrigated with Saline Saline Saline -Foul Odor after Cleansing No No No -Bioengineered Tissue No No No -Bleeding Controlled with Pressure Pressure Pressure -Offloading No No No -Treatment Response Procedure Procedure Procedure Tolerated Well Tolerated Well Tolerated Well #2 L Foot Dorsal -Time 08:33 09:33 08:48 -Correct Patient Yes Yes Yes -Correct Side, Site, Position Yes Yes Yes -Correct Procedure Yes Yes Yes -Procedure Performed Yes Yes Yes -Type of Procedure Debridement Debridement Debridement -Clinical Debridement Subcutaneous Subcutaneous Subcutaneous -Post Debridement Size (cm) - Length 0.4 0.5 0.8 -Post Debridement Size (cm) - Width 0.2 0.3 0.4 -Post Debridement Size (cm) - Depth 0.1 0.1 0.1 -Total Square Cm 0.08 0.15 0.32 -Wound/Ulcer Outcome Not Healed Not Healed Not Healed -Ulcer Cleansing Rinsed/ Rinsed/ Rinsed/ Irrigated with Irrigated with Irrigated with Saline Saline Saline -Foul Odor after Cleansing No No No -Bioengineered Tissue No No No -Bleeding Controlled with Pressure Pressure Pressure -Offloading No No No -Treatment Response Procedure Procedure Procedure Tolerated Well Tolerated Well Tolerated Well Pain Scale: 0-10 Numeric Is Patient Pain Free? Yes Yes Yes Wound debrided: Right great toe Wound Grade/Stage: Stage II Type of Debridement: Excisional debridement Anesthesia Used: 4% Lidocaine Solution Depth: Down to and including healthy tissue, in the subcutaneous layer Percentage of wound debrided: 100 Instrument Used: 3mm curette, #15 blade, Forceps Tissue Removed: Slough and devitalized tissue Severity: Fat Layer Exposed Amount of bleeding with debridement: Moderate Bleeding Controlled with: Pressure, Gel Foam Patient tolerated procedure well - Additional Wound Wound debrided: Left foot Wound Grade/Stage: Stage III Type of Debridement: Excisional debridement Anesthesia Used: 4% Lidocaine Solution Depth: Down to and including healthy tissue, in the subcutaneous layer Percentage of wound debrided: 100 Instrument Used: 3mm curette Tissue Removed: Slough and devitalized tissue Severity: Fat Layer Exposed Amount of bleeding with debridement: Mild Bleeding Controlled with: Pressure Patient tolerated procedure: Patient tolerated procedure well - Additional Wound Wound debrided: Left lower extremity inferior Wound Grade/Stage: Stage II Type of Debridement: Excisional debridement Anesthesia Used: 4% Lidocaine Solution Depth: Down to and including healthy tissue, in the subcutaneous layer Instrument Used: 5mm curette, #15 blade, Forceps Tissue Removed: Slough and devitalized tissue Severity: Fat Layer Exposed Amount of bleeding with debridement: Mild Bleeding Controlled with: Pressure Patient tolerated procedure: Patient tolerated procedure well - Additional Wound Wound debrided: Left lower extremity superior Wound Grade/Stage: Stage II Type of Debridement: Excisional debridement Anesthesia Used: 4% Lidocaine Solution Depth: Down to and including healthy tissue, in the subcutaneous layer Percentage of wound debrided: 100 Instrument Used: 5mm curette Tissue Removed: Slough and devitalized tissue Severity: Fat Layer Exposed Amount of bleeding with debridement: Mild Bleeding Controlled with: Pressure Patient tolerated procedure: Patient tolerated procedure well Assessment/Plan Active Problems (Last Reviewed 12/11/18 @ 11:55 by Beto Dennis MD) Venous insufficiency of both lower extremities (Acute) Ulcer of left lower extremity with fat layer exposed (Acute) Chronic ulcer of right great toe with fat layer exposed (Chronic) Traumatic ulcer of left foot with fat layer exposed (Chronic) Assessment: Traumatic ulcer of the left dorsal foot and chronic right great toe ulcer in a patient with poorly controlled diabetes mellitus. Plan: Still has significant bilateral lower extremity edema with worsening left foot edema. Worsening of all ulcers. New left lower extremity ulcers. Debridement done as documented above. Procedure was well-tolerated. Continue Promogran with Adaptic over top right great toe and left dorsal foot ulcer. Change daily to twice daily. Aquacel extra with ABD over top to left lower extremity superior and inferior ulcers. Change daily. Continue barrier to left lateral foot due to bony deformity. Surepress for edema management. Offloading strongly recommended for right lower extremity. Patient not compliant with offloading and dressing changes. Advised to follow-up with her lighting technician for proper fitting. Increased protein intake recommended. Optimal blood sugar control also strongly recommended. Due to her poor compliance with offloading and dressing changes and complex medical conditions, she has been made complex care. Surgifoam applied to right great toe due to moderate blee ding. No significant bleeding prior to leaving the wound center. Advised to remove at home and apply Promogran. If bleeding occurs at home, he was advised to put pressure over right great toe for at least 30 minutes. Also advised to call with any concerns. All her questions were answered and she was advised to call with any further questions or concerns. Follow-up in 1 week. This note was generated with [employer] dictation software. It may contain incorrect words, spelling, and punctuation that were not noted in checking the note before signing.
[2018-12-24 09:12] VITALS: BP 141/72; PULSE 97; RESP 18; TEMP 36.1; BMI 30.3
--- NOTE | 2018-12-24 10:41 | PCM.WC.PN ---
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 Status: Chronic Current Visit: Yes Code(s): L97.512 - Non-pressure chronic ulcer of other part of right foot with fat layer exposed (2) Diabetes mellitus type II, uncontrolled Status: Deleted Current Visit: Yes Code(s): E11.65 - Type 2 diabetes mellitus with hyperglycemia (3) Traumatic ulcer of left foot with fat layer exposed Status: Chronic Current Visit: Yes Code(s): L97.522 - Non-pressure chronic ulcer of other part of left foot with fat layer exposed (4) Venous insufficiency of both lower extremities Status: Acute Current Visit: Yes Code(s): I87.2 - Venous insufficiency (chronic) (peripheral) (5) Ulcer of left lower extremity with fat layer exposed Status: Acute Current Visit: Yes Code(s): L97.922 - Non-pressure chronic ulcer of unspecified part of left lower leg with fat layer exposed Type of Wound Chief Complaint: Traumatic ulceration of left foot and chronic right great toe ulcer. History of Wound: Ms. Rothman is a 78-year-old who was referred to the wound center by her photographic laboratory supervisor for continued wound care. She has a chronic right great toe ulcer which she has been managing conservatively at home for about 6 months. However, she presented to a photographic laboratory supervisor due to left foot ulcer. She had a bowel drop on her foot about 3 weeks ago. She subsequently developed discoloration and swelling for which she was seen in the emergency room. Imaging done at that time was without any significant abnormality. Plan was to conservatively manage. However about a week ago. She noted an opening over the area with associated drainage/discharge. She was seen by her photographic laboratory supervisor and vacuum therapy was recommended. She reports a history of diabetes which is not well controlled. Last A1c per patient was around 9. She is currently on insulin. Progress of Wound: New left lower extremity ulceration and persistent swelling. Hav not receieved supplies and so have not done dressings as directed. - Physical Exam Vital Signs Temp Pulse Resp BP 97 F L 97 18 141/72 H 12/24/18 09:12 12/24/18 09:12 12/24/18 09:12 12/24/18 09:12 General: Alert, Oriented x3, Cooperative, No apparent distress HEENT: Atraumatic, Normocephalic Oral: Moist Mucosa Neck: Supple Lungs: Normal air movement Extremities: No cyanosis, Edema Skin: Ulcer/ Wound Wound Measurements and Assessment WC - Nurse 1 - General Ulcer Measurement Start: 12/03/18 08:12 Freq: Status: Active Protocol: Activity Type Activity Date Activity User E-Sign Co-Sign Detail Recorded Client Recorded Date Recorded By Document 12/24/18 09:12 RB [id number] 12/24/18 09:31 RB 12/24/18 09:12 Wound Center Nurse 1 [Ulcer Assessment] #6 L Med Lower Leg Sup -Combined with other wound No -Current Size (cm) - Length 0.5 -Current Size (cm) - Width 0.4 -Current Size (cm) - Depth 0.1 -Total Square Cm 0.20 -Tunneling No -Undermining/Tunneling No -Circular Undermining No -Exudate Amt Small -Exudate Type Serosanguineous -Wound Margin Distinct, Outline Attached -Granulation Amt Medium (34-66%) -Granulation Quality [place] -Slough/Fibrin Yes -Necrosis Amt Medium (34-66%) -Necrotic Tissue Type Adherent Slough -Structure Exposed N/A -Texture (Amy-wound Skin Appearance) Assessed -Moisture (Amy-wound Skin Appearance Assessed ) -Color (Amy-wound Skin Appearance) Hemosiderin Staining -Temperature (Amy-wound Skin No Abnormality Appearance) (Pt Warm) -Tenderness on Palpation (Amy-wound No Skin Appearance) -Ulcer Cleansing Wound Cleanser -Foul Odor after Cleansing No -Anesthetic Used 4% Lidocaine Solution #5 L Med Lower Leg -Combined with other wound No -Current Size (cm) - Length 2.5 -Current Size (cm) - Width 4.5 -Current Size (cm) - Depth 0.1 -Total Square Cm 11.25 -Tunneling No -Undermining/Tunneling No -Circular Undermining No -Exudate Amt Small -Exudate Type Serosanguineous -Wound Margin Distinct, Outline Attached -Granulation Amt Medium (34-66%) -Granulation Quality [place] -Slough/Fibrin Yes -Necrosis Amt Small (1-33%) -Necrotic Tissue Type Adherent Slough -Structure Exposed N/A -Texture (Amy-wound Skin Appearance) Assessed Excoriation -Moisture (Amy-wound Skin Appearance Assessed ) -Color (Amy-wound Skin Appearance) Assessed -Temperature (Amy-wound Skin No Abnormality Appearance) (Pt Warm) -Tenderness on Palpation (Amy-wound No Skin Appearance) -Ulcer Cleansing Wound Cleanser -Foul Odor after Cleansing No -Anesthetic Used 4% Lidocaine Solution #3 R Grt Toe Plantar -Combined with other wound No -Current Size (cm) - Length 0.1 -Current Size (cm) - Width 0.1 -Current Size (cm) - Depth 0.1 -Total Square Cm 0.01 -Tunneling No -Undermining/Tunneling No -Circular Undermining No -Exudate Amt None Present -Wound Margin Distinct, Outline Attached -Granulation Amt Small (1-33%) -Granulation Quality [place] -Slough/Fibrin Yes -Necrosis Amt Medium (34-66%) -Necrotic Tissue Type Adherent Slough -Structure Exposed N/A -Texture (Amy-wound Skin Appearance) Callus -Moisture (Amy-wound Skin Appearance Assessed ) -Color (Amy-wound Skin Appearance) Assessed -Temperature (Amy-wound Skin No Abnormality Appearance) (Pt Warm) -Tenderness on Palpation (Amy-wound No Skin Appearance) -Ulcer Cleansing Wound Cleanser -Foul Odor after Cleansing No -Anesthetic Used 4% Lidocaine Solution #2 L Foot Dorsal -Combined with other wound No -Current Size (cm) - Length 0.9 -Current Size (cm) - Width 0.6 -Current Size (cm) - Depth 0.1 -Total Square Cm 0.54 -Tunneling No -Undermining/Tunneling No -Circular Undermining No -Exudate Amt Small -Exudate Type Serosanguineous -Wound Margin Distinct, Outline Attached -Granulation Amt Medium (34-66%) -Granulation Quality [place] -Slough/Fibrin Yes -Necrosis Amt Medium (34-66%) -Necrotic Tissue Type Adherent Slough -Structure Exposed N/A -Texture (Amy-wound Skin Appearance) Callus -Moisture (Amy-wound Skin Appearance Assessed ) -Color (Amy-wound Skin Appearance) Assessed -Temperature (Amy-wound Skin No Abnormality Appearance) (Pt Warm) -Tenderness on Palpation (Amy-wound No Skin Appearance) -Ulcer Cleansing Wound Cleanser -Foul Odor after Cleansing No -Anesthetic Used 4% Lidocaine Solution [Edema Assessment] -Lower Limb Edema Present Yes -Right Calf (cm) 40.5 -Right Ankle (cm) 24.5 -Left Calf (cm) 41.5 -Left Ankle (cm) 21.2 WC - Nurse 2 - General Ulcer CM Notes Start: 12/03/18 08:12 Freq: Status: Active Protocol: Activity Type Activity Date Activity User E-Sign Co-Sign Detail Recorded Client Recorded Date Recorded By Document 12/24/18 09:43 MW [id number] 12/24/18 10:03 MW 12/24/18 09:43 Wound Center Nurse 2 [Procedure/Treatment] #7 LEFT ANTUNEZ -Time 09:55 -Correct Patient Yes -Correct Side, Site, Position Yes -Correct Procedure Yes -Procedure Performed Yes -Type of Procedure Debridement -Clinical Debridement Subcutaneous -Post Debridement Size (cm) - Length 4.0 -Post Debridement Size (cm) - Width 5.5 -Post Debridement Size (cm) - Depth 0.1 -Total Square Cm 22.00 -Wound/Ulcer Outcome Not Healed -Ulcer Cleansing Wound Cleanser -Foul Odor after Cleansing No -Bioengineered Tissue No -Bleeding Controlled with Pressure -Offloading No -Treatment Response Procedure Tolerated Well #6 L Med Lower Leg Sup -Time 09:44 -Correct Patient Yes -Correct Side, Site, Position Yes -Correct Procedure Yes -Procedure Performed Yes -Type of Procedure Debridement -Clinical Debridement Subcutaneous -Post Debridement Size (cm) - Length 0.8 -Post Debridement Size (cm) - Width 0.4 -Post Debridement Size (cm) - Depth 0.1 -Total Square Cm 0.32 -Wound/Ulcer Outcome Not Healed -Ulcer Cleansing Rinsed/ Irrigated with Saline -Foul Odor after Cleansing No -Bioengineered Tissue No -Bleeding Controlled with Pressure -Offloading No -Treatment Response Procedure Tolerated Well #5 L Med Lower Leg -Time 09:44 -Correct Patient Yes -Correct Side, Site, Position Yes -Correct Procedure Yes -Procedure Performed Yes -Type of Procedure Debridement -Clinical Debridement Subcutaneous -Post Debridement Size (cm) - Length 2.5 -Post Debridement Size (cm) - Width 5.0 -Post Debridement Size (cm) - Depth 0.1 -Total Square Cm 12.50 -Wound/Ulcer Outcome Not Healed -Ulcer Cleansing Rinsed/ Irrigated with Saline -Foul Odor after Cleansing No -Bioengineered Tissue No -Bleeding Controlled with Pressure -Offloading No -Treatment Response Procedure Tolerated Well #3 R Grt Toe Plantar -Time 09:44 -Correct Patient Yes -Correct Side, Site, Position Yes -Correct Procedure Yes -Procedure Performed Yes -Type of Procedure Debridement -Clinical Debridement Subcutaneous -Post Debridement Size (cm) - Length 0.3 -Post Debridement Size (cm) - Width 0.4 -Post Debridement Size (cm) - Depth 0.1 -Total Square Cm 0.12 -Wound/Ulcer Outcome Not Healed -Ulcer Cleansing Rinsed/ Irrigated with Saline -Foul Odor after Cleansing No -Bioengineered Tissue No -Bleeding Controlled with Pressure -Offloading No -Treatment Response Procedure Tolerated Well #2 L Foot Dorsal -Time 09:44 -Correct Patient Yes -Correct Side, Site, Position Yes -Correct Procedure Yes -Procedure Performed Yes -Type of Procedure Debridement -Clinical Debridement Subcutaneous -Post Debridement Size (cm) - Length 0.5 -Post Debridement Size (cm) - Width 0.4 -Post Debridement Size (cm) - Depth 0.1 -Total Square Cm 0.20 -Wound/Ulcer Outcome Not Healed -Ulcer Cleansing Rinsed/ Irrigated with Saline -Foul Odor after Cleansing No -Bioengineered Tissue No -Bleeding Controlled with Pressure -Offloading No -Treatment Response Procedure Tolerated Well [See Physician Procedure note for Specifics] Pain Scale: 0-10 Numeric [Pain] -Is Patient Pain Free? Yes Neurological: Cranial nerves II-XII grossly intact Psych/Mental Status: Normal Affect Debridement Note Post-Debridement Measurements/Treatment WC - Nurse 2 - General Ulcer CM Notes Start: 12/03/18 08:12 Freq: Status: Active Protocol: Activity Type Activity Date Activity User E-Sign Co-Sign Detail Recorded Client Recorded Date Recorded By Document 12/03/18 08:32 MW [id number] 12/03/18 08:36 MW Document 12/10/18 09:32 MW [id number] 12/10/18 09:40 MW Document 12/17/18 08:44 MW [id number] 12/17/18 09:00 MW Document 12/24/18 09:43 MW [id number] 12/24/18 10:03 MW 12/03/18 12/10/18 12/17/18 08:32 09:32 08:44 Wound Center Nurse 2 #7 LEFT ANTUNEZ -Time -Correct Patient -Correct Side, Site, Position -Correct Procedure -Procedure Performed -Type of Procedure -Clinical Debridement -Post Debridement Size (cm) - Length -Post Debridement Size (cm) - Width -Post Debridement Size (cm) - Depth -Total Square Cm -Wound/Ulcer Outcome -Ulcer Cleansing -Foul Odor after Cleansing -Bioengineered Tissue -Bleeding Controlled with -Offloading -Treatment Response #6 L Med Lower Leg Sup -Time 08:52 -Correct Patient Yes -Correct Side, Site, Position Yes -Correct Procedure Yes -Procedure Performed Yes -Type of Procedure Debridement -Clinical Debridement Subcutaneous -Post Debridement Size (cm) - Length 1.0 -Post Debridement Size (cm) - Width 0.5 -Post Debridement Size (cm) - Depth 0.1 -Total Square Cm 0.50 -Wound/Ulcer Outcome Not Healed -Ulcer Cleansing Rinsed/ Irrigated with Saline -Foul Odor after Cleansing No -Bioengineered Tissue No -Bleeding Controlled with Pressure -Offloading No -Treatment Response Procedure Tolerated Well #5 L Med Lower Leg -Time 08:52 -Correct Patient Yes -Correct Side, Site, Position Yes -Correct Procedure Yes -Procedure Performed Yes -Type of Procedure Debridement -Clinical Debridement Subcutaneous -Post Debridement Size (cm) - Length 4.0 -Post Debridement Size (cm) - Width 5.7 -Post Debridement Size (cm) - Depth 0.1 -Total Square Cm 22.80 -Wound/Ulcer Outcome Not Healed -Ulcer Cleansing Rinsed/ Irrigated with Saline -Foul Odor after Cleansing No -Bioengineered Tissue No -Bleeding Controlled with Pressure -Offloading No -Treatment Response Procedure Tolerated Well #3 R Grt Toe Plantar -Time 08:34 09:32 08:47 -Correct Patient Yes Yes Yes -Correct Side, Site, Position Yes Yes Yes -Correct Procedure Yes Yes Yes -Procedure Performed Yes Yes Yes -Type of Procedure Debridement Debridement Debridement -Clinical Debridement Subcutaneous Subcutaneous Subcutaneous -Post Debridement Size (cm) - Length 0.1 0.5 0.5 -Post Debridement Size (cm) - Width 0.2 0.2 0.5 -Post Debridement Size (cm) - Depth 0.1 0.2 0.2 -Total Square Cm 0.02 0.10 0.25 -Wound/Ulcer Outcome Not Healed Not Healed Not Healed -Ulcer Cleansing Rinsed/ Rinsed/ Rinsed/ Irrigated with Irrigated with Irrigated with Saline Saline Saline -Foul Odor after Cleansing No No No -Bioengineered Tissue No No No -Bleeding Controlled with Pressure Pressure Pressure -Offloading No No No -Treatment Response Procedure Procedure Procedure Tolerated Well Tolerated Well Tolerated Well #2 L Foot Dorsal -Time 08:33 09:33 08:48 -Correct Patient Yes Yes Yes -Correct Side, Site, Position Yes Yes Yes -Correct Procedure Yes Yes Yes -Procedure Performed Yes Yes Yes -Type of Procedure Debridement Debridement Debridement -Clinical Debridement Subcutaneous Subcutaneous Subcutaneous -Post Debridement Size (cm) - Length 0.4 0.5 0.8 -Post Debridement Size (cm) - Width 0.2 0.3 0.4 -Post Debridement Size (cm) - Depth 0.1 0.1 0.1 -Total Square Cm 0.08 0.15 0.32 -Wound/Ulcer Outcome Not Healed Not Healed Not Healed -Ulcer Cleansing Rinsed/ Rinsed/ Rinsed/ Irrigated with Irrigated with Irrigated with Saline Saline Saline -Foul Odor after Cleansing No No No -Bioengineered Tissue No No No -Bleeding Controlled with Pressure Pressure Pressure -Offloading No No No -Treatment Response Procedure Procedure Procedure Tolerated Well Tolerated Well Tolerated Well Pain Scale: 0-10 Numeric Is Patient Pain Free? Yes Yes Yes 12/24/18 09:43 Wound Center Nurse 2 #7 LEFT ANTUNEZ -Time 09:55 -Correct Patient Yes -Correct Side, Site, Position Yes -Correct Procedure Yes -Procedure Performed Yes -Type of Procedure Debridement -Clinical Debridement Subcutaneous -Post Debridement Size (cm) - Length 4.0 -Post Debridement Size (cm) - Width 5.5 -Post Debridement Size (cm) - Depth 0.1 -Total Square Cm 22.00 -Wound/Ulcer Outcome Not Healed -Ulcer Cleansing Wound Cleanser -Foul Odor after Cleansing No -Bioengineered Tissue No -Bleeding Controlled with Pressure -Offloading No -Treatment Response Procedure Tolerated Well #6 L Med Lower Leg Sup -Time 09:44 -Correct Patient Yes -Correct Side, Site, Position Yes -Correct Procedure Yes -Procedure Performed Yes -Type of Procedure Debridement -Clinical Debridement Subcutaneous -Post Debridement Size (cm) - Length 0.8 -Post Debridement Size (cm) - Width 0.4 -Post Debridement Size (cm) - Depth 0.1 -Total Square Cm 0.32 -Wound/Ulcer Outcome Not Healed -Ulcer Cleansing Rinsed/ Irrigated with Saline -Foul Odor after Cleansing No -Bioengineered Tissue No -Bleeding Controlled with Pressure -Offloading No -Treatment Response Procedure Tolerated Well #5 L Med Lower Leg -Time 09:44 -Correct Patient Yes -Correct Side, Site, Position Yes -Correct Procedure Yes -Procedure Performed Yes -Type of Procedure Debridement -Clinical Debridement Subcutaneous -Post Debridement Size (cm) - Length 2.5 -Post Debridement Size (cm) - Width 5.0 -Post Debridement Size (cm) - Depth 0.1 -Total Square Cm 12.50 -Wound/Ulcer Outcome Not Healed -Ulcer Cleansing Rinsed/ Irrigated with Saline -Foul Odor after Cleansing No -Bioengineered Tissue No -Bleeding Controlled with Pressure -Offloading No -Treatment Response Procedure Tolerated Well #3 R Grt Toe Plantar -Time 09:44 -Correct Patient Yes -Correct Side, Site, Position Yes -Correct Procedure Yes -Procedure Performed Yes -Type of Procedure Debridement -Clinical Debridement Subcutaneous -Post Debridement Size (cm) - Length 0.3 -Post Debridement Size (cm) - Width 0.4 -Post Debridement Size (cm) - Depth 0.1 -Total Square Cm 0.12 -Wound/Ulcer Outcome Not Healed -Ulcer Cleansing Rinsed/ Irrigated with Saline -Foul Odor after Cleansing No -Bioengineered Tissue No -Bleeding Controlled with Pressure -Offloading No -Treatment Response Procedure Tolerated Well #2 L Foot Dorsal -Time 09:44 -Correct Patient Yes -Correct Side, Site, Position Yes -Correct Procedure Yes -Procedure Performed Yes -Type of Procedure Debridement -Clinical Debridement Subcutaneous -Post Debridement Size (cm) - Length 0.5 -Post Debridement Size (cm) - Width 0.4 -Post Debridement Size (cm) - Depth 0.1 -Total Square Cm 0.20 -Wound/Ulcer Outcome Not Healed -Ulcer Cleansing Rinsed/ Irrigated with Saline -Foul Odor after Cleansing No -Bioengineered Tissue No -Bleeding Controlled with Pressure -Offloading No -Treatment Response Procedure Tolerated Well Pain Scale: 0-10 Numeric Is Patient Pain Free? Yes Wound debrided: Right great toe Wound Grade/Stage: Stage II Type of Debridement: Excisional debridement Anesthesia Used: 4% Lidocaine Solution Depth: Down to and including healthy tissue, in the subcutaneous layer Percentage of wound debrided: 100 Instrument Used: 3mm curette Tissue Removed: Slough and devitalized tissue Severity: Fat Layer Exposed Amount of bleeding with debridement: Mild Bleeding Controlled with: Pressure Patient tolerated procedure well - Additional Wound Wound debrided: Left doral foot Wound Grade/Stage: Stage III Type of Debridement: Excisional debridement Anesthesia Used: 4% Lidocaine Solution Depth: Down to and including healthy tissue, in the subcutaneous layer Percentage of wound debrided: 100 Instrument Used: 3mm curette Tissue Removed: Slough and devitalized tissue Severity: Fat Layer Exposed Amount of bleeding with debridement: Mild Bleeding Controlled with: Pressure Patient tolerated procedure: Patient tolerated procedure well - Additional Wound Wound debrided: Left leg Medial ( Inferior ) Wound Grade/Stage: Stage II Type of Debridement: Excisional debridement Anesthesia Used: 4% Lidocaine Solution Depth: Down to and including healthy tissue, in the subcutaneous layer Percentage of wound debrided: 100 Instrument Used: 5mm curette Tissue Removed: Slough and devitalized tissue Severity: Fat Layer Exposed Amount of bleeding with debridement: Mild Bleeding Controlled with: Pressure Patient tolerated procedure: Patient tolerated procedure well - Additional Wound Wound debrided: Left leg medial ( Superior ) Wound Grade/Stage: Stage II Type of Debridement: Excisional debridement Anesthesia Used: 4% Lidocaine Solution Depth: Down to and including healthy tissue, in the subcutaneous layer Percentage of wound debrided: 100 Instrument Used: 5mm curette Tissue Removed: Slough and devitalized tissue Severity: Fat Layer Exposed Amount of bleeding with debridement: Mild Bleeding Controlled with: Pressure Patient tolerated procedure: Patient tolerated procedure well - Additional Wound Wound debrided: Left [place]z Wound Grade/Stage: Stage II Type of Debridement: Excisional debridement Anesthesia Used: 4% Lidocaine Solution Depth: Down to and including healthy tissue, in the subcutaneous layer Percentage of wound debrided: 100 Instrument Used: 5mm curette Tissue Removed: Slough and devitalized tissue Severity: Fat Layer Exposed Amount of bleeding with debridement: Mild Bleeding Controlled with: Pressure Patient tolerated procedure: Patient tolerated procedure well Assessment/Plan Active Problems (Last Reviewed 12/11/18 @ 11:55 by Beto Dennis MD) Venous insufficiency of both lower extremities (Acute) Ulcer of left lower extremity with fat layer exposed (Acute) Chronic ulcer of right great toe with fat layer exposed (Chronic) Traumatic ulcer of left foot with fat layer exposed (Chronic) Assessment: Traumatic ulcer of the left dorsal foot and chronic right great toe ulcer in a patient with poorly controlled diabetes mellitus. Plan: Still has significant bilateral lower extremity edema with worsening left foot edema. New left antunez ulcer. Debridement done as documented above. Procedure was well-tolerated. Continue Promogran with Adaptic over top right great toe and left dorsal foot ulcer. Change daily to twice daily. Aquacel extra with ABD over top to left lower extremity superior, inferior and antunez ulcers. Change daily. Continue barrier to left lateral foot due to bony deformity. Double layer Tubi hairspring truing inspector and Mendez wraps for edema management. Offloading strongly recommended for right lower extremity. Patient not compliant with offloading and dressing changes. Advised to follow-up with her photographic laboratory supervisor for proper fitting. Increased protein intake recommended. Optimal blood sugar control also strongly recommended. Due to her poor compliance with offloading and dressing changes and complex medical conditions, she has been made complex care. All her questions were answered and she was advised to call with any further questions or concerns. Follow-up in 1 week. This note was generated with [employer] dictation software. It may contain incorrect words, spelling, and punctuation that were not noted in checking the note before signing.
--- NOTE | 2018-12-24 10:45 | PN.PCM_ITS ---
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 Status: Chronic Current Visit: Yes Code(s): L97.512 - Non-pressure chronic ulcer of other part of right foot with fat layer exposed (2) Diabetes mellitus type II, uncontrolled Status: Deleted Current Visit: Yes Code(s): E11.65 - Type 2 diabetes mellitus with hyperglycemia (3) Traumatic ulcer of left foot with fat layer exposed Status: Chronic Current Visit: Yes Code(s): L97.522 - Non-pressure chronic ulcer of other part of left foot with fat layer exposed (4) Venous insufficiency of both lower extremities Status: Acute Current Visit: Yes Code(s): I87.2 - Venous insufficiency (chronic) (peripheral) (5) Ulcer of left lower extremity with fat layer exposed Status: Acute Current Visit: Yes Code(s): L97.922 - Non-pressure chronic ulcer of unspecified part of left lower leg with fat layer exposed Type of Wound Chief Complaint: Traumatic ulceration of left foot and chronic right great toe ulcer. History of Wound: Ms. Rothman is a 78-year-old who was referred to the wound center by her marketing and development coordinator for continued wound care. She has a chronic right great toe ulcer which she has been managing conservatively at home for about 6 months. However, she presented to a marketing and development coordinator due to left foot ulcer. She had a bowel drop on her foot about 3 weeks ago. She subsequently developed discoloration and swelling for which she was seen in the emergency room. Imaging done at that time was without any significant abnormality. Plan was to conservatively manage. However about a week ago. She noted an opening over the area with associated drainage/discharge. She was seen by her marketing and development coordinator and vacuum therapy was recommended. She reports a history of diabetes which is not well controlled. Last A1c per patient was around 9. She is currently on insulin. Progress of Wound: New left lower extremity ulceration and persistent swelling. Hav not receieved supplies and so have not done dressings as directed. - Physical Exam Vital Signs Temp Pulse Resp BP 97 F L 97 18 141/72 H 12/24/18 09:12 12/24/18 09:12 12/24/18 09:12 12/24/18 09:12 General: Alert, Oriented x3, Cooperative, No apparent distress HEENT: Atraumatic, Normocephalic Oral: Moist Mucosa Neck: Supple Lungs: Normal air movement Extremities: No cyanosis, Edema Skin: Ulcer/ Wound Wound Measurements and Assessment WC - Nurse 1 - General Ulcer Measurement Start: 12/03/18 08:12 Freq: Status: Active Protocol: Activity Type Activity Date Activity User E-Sign Co-Sign Detail Recorded Client Recorded Date Recorded By Document 12/24/18 09:12 RB [id number] 12/24/18 09:31 RB 12/24/18 09:12 Wound Center Nurse 1 [Ulcer Assessment] #6 L Med Lower Leg Sup -Combined with other wound No -Current Size (cm) - Length 0.5 -Current Size (cm) - Width 0.4 -Current Size (cm) - Depth 0.1 -Total Square Cm 0.20 -Tunneling No -Undermining/Tunneling No -Circular Undermining No -Exudate Amt Small -Exudate Type Serosanguineous -Wound Margin Distinct, Outline Attached -Granulation Amt Medium (34-66%) -Granulation Quality [place] -Slough/Fibrin Yes -Necrosis Amt Medium (34-66%) -Necrotic Tissue Type Adherent Slough -Structure Exposed N/A -Texture (Amy-wound Skin Appearance) Assessed -Moisture (Amy-wound Skin Appearance Assessed ) -Color (Amy-wound Skin Appearance) Hemosiderin Staining -Temperature (Amy-wound Skin No Abnormality Appearance) (Pt Warm) -Tenderness on Palpation (Amy-wound No Skin Appearance) -Ulcer Cleansing Wound Cleanser -Foul Odor after Cleansing No -Anesthetic Used 4% Lidocaine Solution #5 L Med Lower Leg -Combined with other wound No -Current Size (cm) - Length 2.5 -Current Size (cm) - Width 4.5 -Current Size (cm) - Depth 0.1 -Total Square Cm 11.25 -Tunneling No -Undermining/Tunneling No -Circular Undermining No -Exudate Amt Small -Exudate Type Serosanguineous -Wound Margin Distinct, Outline Attached -Granulation Amt Medium (34-66%) -Granulation Quality [place] -Slough/Fibrin Yes -Necrosis Amt Small (1-33%) -Necrotic Tissue Type Adherent Slough -Structure Exposed N/A -Texture (Amy-wound Skin Appearance) Assessed Excoriation -Moisture (Aym-wound Skin Appearance Assessed ) -Color (Amy-wound Skin Appearance) Assessed -Temperature (Amy-wound Skin No Abnormality Appearance) (Pt Warm) -Tenderness on Palpation (Amy-wound No Skin Appearance) -Ulcer Cleansing Wound Cleanser -Foul Odor after Cleansing No -Anesthetic Used 4% Lidocaine Solution #3 R Grt Toe Plantar -Combined with other wound No -Current Size (cm) - Length 0.1 -Current Size (cm) - Width 0.1 -Current Size (cm) - Depth 0.1 -Total Square Cm 0.01 -Tunneling No -Undermining/Tunneling No -Circular Undermining No -Exudate Amt None Present -Wound Margin Distinct, Outline Attached -Granulation Amt Small (1-33%) -Granulation Quality [place] -Slough/Fibrin Yes -Necrosis Amt Medium (34-66%) -Necrotic Tissue Type Adherent Slough -Structure Exposed N/A -Texture (Amy-wound Skin Appearance) Callus -Moisture (Amy-wound Skin Appearance Assessed ) -Color (Amy-wound Skin Appearance) Assessed -Temperature (Amy-wound Skin No Abnormality Appearance) (Pt Warm) -Tenderness on Palpation (Amy-wound No Skin Appearance) -Ulcer Cleansing Wound Cleanser -Foul Odor after Cleansing No -Anesthetic Used 4% Lidocaine Solution #2 L Foot Dorsal -Combined with other wound No -Current Size (cm) - Length 0.9 -Current Size (cm) - Width 0.6 -Current Size (cm) - Depth 0.1 -Total Square Cm 0.54 -Tunneling No -Undermining/Tunneling No -Circular Undermining No -Exudate Amt Small -Exudate Type Serosanguineous -Wound Margin Distinct, Outline Attached -Granulation Amt Medium (34-66%) -Granulation Quality [place] -Slough/Fibrin Yes -Necrosis Amt Medium (34-66%) -Necrotic Tissue Type Adherent Slough -Structure Exposed N/A -Texture (Amy-wound Skin Appearance) Callus -Moisture (Amy-wound Skin Appearance Assessed ) -Color (Amy-wound Skin Appearance) Assessed -Temperature (Amy-wound Skin No Abnormality Appearance) (Pt Warm) -Tenderness on Palpation (Amy-wound No Skin Appearance) -Ulcer Cleansing Wound Cleanser -Foul Odor after Cleansing No -Anesthetic Used 4% Lidocaine Solution [Edema Assessment] -Lower Limb Edema Present Yes -Right Calf (cm) 40.5 -Right Ankle (cm) 24.5 -Left Calf (cm) 41.5 -Left Ankle (cm) 21.2 WC - Nurse 2 - General Ulcer CM Notes Start: 12/03/18 08:12 Freq: Status: Active Protocol: Activity Type Activity Date Activity User E-Sign Co-Sign Detail Recorded Client Recorded Date Recorded By Document 12/24/18 09:43 MW [id number] 12/24/18 10:03 MW 12/24/18 09:43 Wound Center Nurse 2 [Procedure/Treatment] #7 LEFT ANTUNEZ -Time 09:55 -Correct Patient Yes -Correct Side, Site, Position Yes -Correct Procedure Yes -Procedure Performed Yes -Type of Procedure Debridement -Clinical Debridement Subcutaneous -Post Debridement Size (cm) - Length 4.0 -Post Debridement Size (cm) - Width 5.5 -Post Debridement Size (cm) - Depth 0.1 -Total Square Cm 22.00 -Wound/Ulcer Outcome Not Healed -Ulcer Cleansing Wound Cleanser -Foul Odor after Cleansing No -Bioengineered Tissue No -Bleeding Controlled with Pressure -Offloading No -Treatment Response Procedure Tolerated Well #6 L Med Lower Leg Sup -Time 09:44 -Correct Patient Yes -Correct Side, Site, Position Yes -Correct Procedure Yes -Procedure Performed Yes -Type of Procedure Debridement -Clinical Debridement Subcutaneous -Post Debridement Size (cm) - Length 0.8 -Post Debridement Size (cm) - Width 0.4 -Post Debridement Size (cm) - Depth 0.1 -Total Square Cm 0.32 -Wound/Ulcer Outcome Not Healed -Ulcer Cleansing Rinsed/ Irrigated with Saline -Foul Odor after Cleansing No -Bioengineered Tissue No -Bleeding Controlled with Pressure -Offloading No -Treatment Response Procedure Tolerated Well #5 L Med Lower Leg -Time 09:44 -Correct Patient Yes -Correct Side, Site, Position Yes -Correct Procedure Yes -Procedure Performed Yes -Type of Procedure Debridement -Clinical Debridement Subcutaneous -Post Debridement Size (cm) - Length 2.5 -Post Debridement Size (cm) - Width 5.0 -Post Debridement Size (cm) - Depth 0.1 -Total Square Cm 12.50 -Wound/Ulcer Outcome Not Healed -Ulcer Cleansing Rinsed/ Irrigated with Saline -Foul Odor after Cleansing No -Bioengineered Tissue No -Bleeding Controlled with Pressure -Offloading No -Treatment Response Procedure Tolerated Well #3 R Grt Toe Plantar -Time 09:44 -Correct Patient Yes -Correct Side, Site, Position Yes -Correct Procedure Yes -Procedure Performed Yes -Type of Procedure Debridement -Clinical Debridement Subcutaneous -Post Debridement Size (cm) - Length 0.3 -Post Debridement Size (cm) - Width 0.4 -Post Debridement Size (cm) - Depth 0.1 -Total Square Cm 0.12 -Wound/Ulcer Outcome Not Healed -Ulcer Cleansing Rinsed/ Irrigated with Saline -Foul Odor after Cleansing No -Bioengineered Tissue No -Bleeding Controlled with Pressure -Offloading No -Treatment Response Procedure Tolerated Well #2 L Foot Dorsal -Time 09:44 -Correct Patient Yes -Correct Side, Site, Position Yes -Correct Procedure Yes -Procedure Performed Yes -Type of Procedure Debridement -Clinical Debridement Subcutaneous -Post Debridement Size (cm) - Length 0.5 -Post Debridement Size (cm) - Width 0.4 -Post Debridement Size (cm) - Depth 0.1 -Total Square Cm 0.20 -Wound/Ulcer Outcome Not Healed -Ulcer Cleansing Rinsed/ Irrigated with Saline -Foul Odor after Cleansing No -Bioengineered Tissue No -Bleeding Controlled with Pressure -Offloading No -Treatment Response Procedure Tolerated Well [See Physician Procedure note for Specifics] Pain Scale: 0-10 Numeric [Pain] -Is Patient Pain Free? Yes Neurological: Cranial nerves II-XII grossly intact Psych/Mental Status: Normal Affect Debridement Note Post-Debridement Measurements/Treatment WC - Nurse 2 - General Ulcer CM Notes Start: 12/03/18 08:12 Freq: Status: Active Protocol: Activity Type Activity Date Activity User E-Sign Co-Sign Detail Recorded Client Recorded Date Recorded By Document 12/03/18 08:32 MW [id number] 12/03/18 08:36 MW Document 12/10/18 09:32 MW [id number] 12/10/18 09:40 MW Document 12/17/18 08:44 MW [id number] 12/17/18 09:00 MW Document 12/24/18 09:43 MW [id number] 12/24/18 10:03 MW 12/03/18 12/10/18 12/17/18 08:32 09:32 08:44 Wound Center Nurse 2 #7 LEFT ANTUNEZ -Time -Correct Patient -Correct Side, Site, Position -Correct Procedure -Procedure Performed -Type of Procedure -Clinical Debridement -Post Debridement Size (cm) - Length -Post Debridement Size (cm) - Width -Post Debridement Size (cm) - Depth -Total Square Cm -Wound/Ulcer Outcome -Ulcer Cleansing -Foul Odor after Cleansing -Bioengineered Tissue -Bleeding Controlled with -Offloading -Treatment Response #6 L Med Lower Leg Sup -Time 08:52 -Correct Patient Yes -Correct Side, Site, Position Yes -Correct Procedure Yes -Procedure Performed Yes -Type of Procedure Debridement -Clinical Debridement Subcutaneous -Post Debridement Size (cm) - Length 1.0 -Post Debridement Size (cm) - Width 0.5 -Post Debridement Size (cm) - Depth 0.1 -Total Square Cm 0.50 -Wound/Ulcer Outcome Not Healed -Ulcer Cleansing Rinsed/ Irrigated with Saline -Foul Odor after Cleansing No -Bioengineered Tissue No -Bleeding Controlled with Pressure -Offloading No -Treatment Response Procedure Tolerated Well #5 L Med Lower Leg -Time 08:52 -Correct Patient Yes -Correct Side, Site, Position Yes -Correct Procedure Yes -Procedure Performed Yes -Type of Procedure Debridement -Clinical Debridement Subcutaneous -Post Debridement Size (cm) - Length 4.0 -Post Debridement Size (cm) - Width 5.7 -Post Debridement Size (cm) - Depth 0.1 -Total Square Cm 22.80 -Wound/Ulcer Outcome Not Healed -Ulcer Cleansing Rinsed/ Irrigated with Saline -Foul Odor after Cleansing No -Bioengineered Tissue No -Bleeding Controlled with Pressure -Offloading No -Treatment Response Procedure Tolerated Well #3 R Grt Toe Plantar -Time 08:34 09:32 08:47 -Correct Patient Yes Yes Yes -Correct Side, Site, Position Yes Yes Yes -Correct Procedure Yes Yes Yes -Procedure Performed Yes Yes Yes -Type of Procedure Debridement Debridement Debridement -Clinical Debridement Subcutaneous Subcutaneous Subcutaneous -Post Debridement Size (cm) - Length 0.1 0.5 0.5 -Post Debridement Size (cm) - Width 0.2 0.2 0.5 -Post Debridement Size (cm) - Depth 0.1 0.2 0.2 -Total Square Cm 0.02 0.10 0.25 -Wound/Ulcer Outcome Not Healed Not Healed Not Healed -Ulcer Cleansing Rinsed/ Rinsed/ Rinsed/ Irrigated with Irrigated with Irrigated with Saline Saline Saline -Foul Odor after Cleansing No No No -Bioengineered Tissue No No No -Bleeding Controlled with Pressure Pressure Pressure -Offloading No No No -Treatment Response Procedure Procedure Procedure Tolerated Well Tolerated Well Tolerated Well #2 L Foot Dorsal -Time 08:33 09:33 08:48 -Correct Patient Yes Yes Yes -Correct Side, Site, Position Yes Yes Yes -Correct Procedure Yes Yes Yes -Procedure Performed Yes Yes Yes -Type of Procedure Debridement Debridement Debridement -Clinical Debridement Subcutaneous Subcutaneous Subcutaneous -Post Debridement Size (cm) - Length 0.4 0.5 0.8 -Post Debridement Size (cm) - Width 0.2 0.3 0.4 -Post Debridement Size (cm) - Depth 0.1 0.1 0.1 -Total Square Cm 0.08 0.15 0.32 -Wound/Ulcer Outcome Not Healed Not Healed Not Healed -Ulcer Cleansing Rinsed/ Rinsed/ Rinsed/ Irrigated with Irrigated with Irrigated with Saline Saline Saline -Foul Odor after Cleansing No No No -Bioengineered Tissue No No No -Bleeding Controlled with Pressure Pressure Pressure -Offloading No No No -Treatment Response Procedure Procedure Procedure Tolerated Well Tolerated Well Tolerated Well Pain Scale: 0-10 Numeric Is Patient Pain Free? Yes Yes Yes 12/24/18 09:43 Wound Center Nurse 2 #7 LEFT ANTUNEZ -Time 09:55 -Correct Patient Yes -Correct Side, Site, Position Yes -Correct Procedure Yes -Procedure Performed Yes -Type of Procedure Debridement -Clinical Debridement Subcutaneous -Post Debridement Size (cm) - Length 4.0 -Post Debridement Size (cm) - Width 5.5 -Post Debridement Size (cm) - Depth 0.1 -Total Square Cm 22.00 -Wound/Ulcer Outcome Not Healed -Ulcer Cleansing Wound Cleanser -Foul Odor after Cleansing No -Bioengineered Tissue No -Bleeding Controlled with Pressure -Offloading No -Treatment Response Procedure Tolerated Well #6 L Med Lower Leg Sup -Time 09:44 -Correct Patient Yes -Correct Side, Site, Position Yes -Correct Procedure Yes -Procedure Performed Yes -Type of Procedure Debridement -Clinical Debridement Subcutaneous -Post Debridement Size (cm) - Length 0.8 -Post Debridement Size (cm) - Width 0.4 -Post Debridement Size (cm) - Depth 0.1 -Total Square Cm 0.32 -Wound/Ulcer Outcome Not Healed -Ulcer Cleansing Rinsed/ Irrigated with Saline -Foul Odor after Cleansing No -Bioengineered Tissue No -Bleeding Controlled with Pressure -Offloading No -Treatment Response Procedure Tolerated Well #5 L Med Lower Leg -Time 09:44 -Correct Patient Yes -Correct Side, Site, Position Yes -Correct Procedure Yes -Procedure Performed Yes -Type of Procedure Debridement -Clinical Debridement Subcutaneous -Post Debridement Size (cm) - Length 2.5 -Post Debridement Size (cm) - Width 5.0 -Post Debridement Size (cm) - Depth 0.1 -Total Square Cm 12.50 -Wound/Ulcer Outcome Not Healed -Ulcer Cleansing Rinsed/ Irrigated with Saline -Foul Odor after Cleansing No -Bioengineered Tissue No -Bleeding Controlled with Pressure -Offloading No -Treatment Response Procedure Tolerated Well #3 R Grt Toe Plantar -Time 09:44 -Correct Patient Yes -Correct Side, Site, Position Yes -Correct Procedure Yes -Procedure Performed Yes -Type of Procedure Debridement -Clinical Debridement Subcutaneous -Post Debridement Size (cm) - Length 0.3 -Post Debridement Size (cm) - Width 0.4 -Post Debridement Size (cm) - Depth 0.1 -Total Square Cm 0.12 -Wound/Ulcer Outcome Not Healed -Ulcer Cleansing Rinsed/ Irrigated with Saline -Foul Odor after Cleansing No -Bioengineered Tissue No -Bleeding Controlled with Pressure -Offloading No -Treatment Response Procedure Tolerated Well #2 L Foot Dorsal -Time 09:44 -Correct Patient Yes -Correct Side, Site, Position Yes -Correct Procedure Yes -Procedure Performed Yes -Type of Procedure Debridement -Clinical Debridement Subcutaneous -Post Debridement Size (cm) - Length 0.5 -Post Debridement Size (cm) - Width 0.4 -Post Debridement Size (cm) - Depth 0.1 -Total Square Cm 0.20 -Wound/Ulcer Outcome Not Healed -Ulcer Cleansing Rinsed/ Irrigated with Saline -Foul Odor after Cleansing No -Bioengineered Tissue No -Bleeding Controlled with Pressure -Offloading No -Treatment Response Procedure Tolerated Well Pain Scale: 0-10 Numeric Is Patient Pain Free? Yes Wound debrided: Right great toe Wound Grade/Stage: Stage II Type of Debridement: Excisional debridement Anesthesia Used: 4% Lidocaine Solution Depth: Down to and including healthy tissue, in the subcutaneous layer Percentage of wound debrided: 100 Instrument Used: 3mm curette Tissue Removed: Slough and devitalized tissue Severity: Fat Layer Exposed Amount of bleeding with debridement: Mild Bleeding Controlled with: Pressure Patient tolerated procedure well - Additional Wound Wound debrided: Left doral foot Wound Grade/Stage: Stage III Type of Debridement: Excisional debridement Anesthesia Used: 4% Lidocaine Solution Depth: Down to and including healthy tissue, in the subcutaneous layer Percentage of wound debrided: 100 Instrument Used: 3mm curette Tissue Removed: Slough and devitalized tissue Severity: Fat Layer Exposed Amount of bleeding with debridement: Mild Bleeding Controlled with: Pressure Patient tolerated procedure: Patient tolerated procedure well - Additional Wound Wound debrided: Left leg Medial ( Inferior ) Wound Grade/Stage: Stage II Type of Debridement: Excisional debridement Anesthesia Used: 4% Lidocaine Solution Depth: Down to and including healthy tissue, in the subcutaneous layer Percentage of wound debrided: 100 Instrument Used: 5mm curette Tissue Removed: Slough and devitalized tissue Severity: Fat Layer Exposed Amount of bleeding with debridement: Mild Bleeding Controlled with: Pressure Patient tolerated procedure: Patient tolerated procedure well - Additional Wound Wound debrided: Left leg medial ( Superior ) Wound Grade/Stage: Stage II Type of Debridement: Excisional debridement Anesthesia Used: 4% Lidocaine Solution Depth: Down to and including healthy tissue, in the subcutaneous layer Percentage of wound debrided: 100 Instrument Used: 5mm curette Tissue Removed: Slough and devitalized tissue Severity: Fat Layer Exposed Amount of bleeding with debridement: Mild Bleeding Controlled with: Pressure Patient tolerated procedure: Patient tolerated procedure well - Additional Wound Wound debrided: Left Antunez Wound Grade/Stage: Stage II Type of Debridement: Excisional debridement Anesthesia Used: 4% Lidocaine Solution Depth: Down to and including healthy tissue, in the subcutaneous layer Percentage of wound debrided: 100 Instrument Used: 5mm curette Tissue Removed: Slough and devitalized tissue Severity: Fat Layer Exposed Amount of bleeding with debridement: Mild Bleeding Controlled with: Pressure Patient tolerated procedure: Patient tolerated procedure well Assessment/Plan Active Problems (Last Reviewed 12/11/18 @ 11:55 by Beto Dennis MD) Venous insufficiency of both lower extremities (Acute) Ulcer of left lower extremity with fat layer exposed (Acute) Chronic ulcer of right great toe with fat layer exposed (Chronic) Traumatic ulcer of left foot with fat layer exposed (Chronic) Assessment: Traumatic ulcer of the left dorsal foot and chronic right great toe ulcer in a patient with poorly controlled diabetes mellitus. Plan: Still has significant bilateral lower extremity edema with worsening left foot edema. New left antunez ulcer. Debridement done as documented above. Procedure was well-tolerated. Continue Promogran with Adaptic over top right great toe and left dorsal foot ulcer. Change daily to twice daily. Aquacel extra with ABD over top to left lower extremity superior, inferior and antunez ulcers. Change daily. Continue barrier to left lateral foot due to bony deformity. Double layer Tubi billposter and Mendez wraps for edema management. Offloading strongly recommended for right lower extremity. Patient not compliant with offloading and dressing changes. Advised to follow-up with her marketing and development coordinator for proper fitting. Increased protein intake recommended. Optimal blood sugar control also strongly recommended. Due to her poor compliance with offloading and dressing changes and complex medical conditions, she has been made complex care. All her questions were answered and she was advised to call with any further questions or concerns. Follow-up in 1 week. This note was generated with [employer] dictation software. It may contain incorrect words, spelling, and punctuation that were not noted in checking the note before signing.
== END 2018-12-25 23:59 ==
LOC: WC 09:00
PROVIDERS: Internal Medicine Nephrology; Family Provider Internal Medicine; PCP Internal Medicine; Visit Provider Internal Medicine
DX: E11.621 Type 2 diabetes mellitus with foot ulcer (principal); E11.65 Type 2 diabetes mellitus with hyperglycemia; L97.522 Non-pressure chronic ulcer of other part of left foot with fat layer exposed; L97.512 Non-pressure chronic ulcer of other part of right foot with fat layer exposed
CPT/HCPCS: 11042; 11045; 36415; 80069; 83970

== ENCOUNTER → 2018-12-28 | Outpatient (CLI) | payer MEDICARE, SELFPAY ==
[2018-12-28 09:07] VITALS: BMI 33.3
[2018-12-28 13:01] LABS: Absolute Lymphocyte Count 0.94 X10^3/ul (0.83-4.51); Absolute Neutrophil Count 4.6 X10^3/uL (2.0-7.7); Basophil# 0.05 X10^3/uL; Basophil% 0.8 % (0-1); Eosinophil# 0.26 X10^3/uL; Eosinophils% 4.2 % (0-5); Hematocrit 35.3 % (37-47); Lymphocyte # 0.94 X10^3/ul (4.0); Lymphocyte % 15.1 % (19-41); Mean Corp Hgb Conc 31.2 g/gl (32-36); Mean Corpuscular Hgb 25.1 pg (27.0-32.0); Mean Corpuscular Volume 80.6 fL (81-99); Mean Platelet Vol. 10.4 fl (6.2-12.0); Monocyte# 0.41 X10^3/uL; Monocyte% 6.6 % (0-10); Neutrophil # 4.55 X10^3/uL (2.7-7.7); Neutrophil % 73.3 % (47-70); Platelet Count 199 K/mm3 (150-450); RBC Distribution Width CV 16.4 % (11.6-14.6); RBC Distribution Width SD 48.7 fl (35.1-43.9); Red Blood Count 4.38 M/mm3 (4.2-5.4); White Blood Count 6.2 K/mm3 (4.4-11.0)
[2018-12-28 13:02] LABS: POSITIVE COUNT NO; POSITIVE DIFFERENTIAL NO; POSITIVE MORPHOLOGY NO
[2018-12-28 13:13] LABS: Prothrombin Time (Protime)PT. 22.2 SECONDS (11.7-14.9)
[2018-12-28 13:24] LABS: Anion Gap 6 (5-15); BUN 31 mg/dL (7-18); BUN/Creat Ratio 16.4 RATIO (10-20); Chloride 103 mmol/L (98-107); Creatinine, Serum 1.89 mg/dL (0.55-1.02); EST Glomerular Filtration Rate 27 mL/min (>60); Est Glom Filt Rate - Afr Amer 33 mL/min (>60); Glucose 222 mg/dL (74-106); Potassium 4.3 mmol/L (3.5-5.1); Sodium Level 140 mmol/L (136-145)
[2019-01-03 03:06] LABS: Alternaria alternata <0.10 kU/L (Class 0); Aspirgillus flavus Negative (Neg:<1:1); Aspirgillus fumigatus Negative (Neg:<1:1); Aspirgillus niger Negative (Neg:<1:1); Bermuda Grass <0.10 kU/L (Class 0); Bluegrass, Kentucky <0.10 kU/L (Class 0); Cat Hair/Dander, Standard 0.19 kU/L (Class 0/I); D farinae Mite <0.10 kU/L (Class 0); D pteronyssinus <0.10 kU/L (Class 0); Dog Epithelia <0.10 kU/L (Class 0); Elm, American White <0.10 kU/L (Class 0); Oak, White <0.10 kU/L (Class 0); Plantain, English <0.10 kU/L (Class 0); Ragweed, Short/Common <0.10 kU/L (Class 0)
[2019-01-03 13:57] LABS: Mouse Urine <0.10 kU/L (Class 0)
[2019-01-03 13:58] LABS: Immunoglobulin E 21 IU/mL (6-495)
== END | disposition home or self-care (01) ==
LOC: LABSPEC 09:13
PROVIDERS: Nurse Practitioner Acute Care; Family Provider Internal Medicine; PCP Internal Medicine; Visit Provider Internal Medicine Cardiovascular Disease
DX: I48.0 Paroxysmal atrial fibrillation (principal); Z51.81 Encounter for therapeutic drug level monitoring; Z79.01 Long term (current) use of anticoagulants; R06.00 Dyspnea, unspecified; I50.32 Chronic diastolic (congestive) heart failure; L97.512 Non-pressure chronic ulcer of other part of right foot with fat layer exposed
CPT/HCPCS: 36415; 80048; 82785; 85025; 85610; 86003; 86606

== ENCOUNTER 2018-12-31 08:51 | Outpatient (RCR) | payer MEDICARE, SELFPAY ==
[2018-12-26 00:51] VITALS: BP 141/72; PULSE 97; RESP 18; TEMP 36.1
[2018-12-28 09:07] VITALS: BMI 33.3
[2018-12-31 09:32] VITALS: BP 145/73; PULSE 75; RESP 18; TEMP 36; BMI 33.3
--- NOTE | 2018-12-31 12:54 | PCM.WC.PN ---
(1) Ulcer of left lower extremity with fat layer exposed Status: Acute Current Visit: Yes Code(s): L97.922 - Non-pressure chronic ulcer of unspecified part of left lower leg with fat layer exposed (2) Venous insufficiency of both lower extremities Status: Chronic Current Visit: Yes Code(s): I87.2 - Venous insufficiency (chronic) (peripheral) (3) Chronic ulcer of right great toe with fat layer exposed Status: Chronic Current Visit: Yes Code(s): L97.512 - Non-pressure chronic ulcer of other part of right foot with fat layer exposed (4) Traumatic ulcer of left foot with fat layer exposed Status: Chronic Current Visit: Yes Code(s): L97.522 - Non-pressure chronic ulcer of other part of left foot with fat layer exposed Type of Wound Chief Complaint: Traumatic ulceration of left foot and chronic right great toe ulcer. History of Wound: Ms. Rothman is a 78-year-old who was referred to the wound center by her court interpreter for continued wound care. She has a chronic right great toe ulcer which she has been managing conservatively at home for about 6 months. However, she presented to a court interpreter due to left foot ulcer. She had a bowel drop on her foot about 3 weeks ago. She subsequently developed discoloration and swelling for which she was seen in the emergency room. Imaging done at that time was without any significant abnormality. Plan was to conservatively manage. However about a week ago. She noted an opening over the area with associated drainage/discharge. She was seen by her court interpreter and vacuum therapy was recommended. She reports a history of diabetes which is not well controlled. Last A1c per patient was around 9. She is currently on insulin. Progress of Wound: Improving. Bilateral lower extremity edema also improving. No new concerns at this time. - Physical Exam Vital Signs Temp Pulse Resp BP 96.8 F L 75 18 145/73 H 12/31/18 09:32 12/31/18 09:32 12/31/18 09:32 12/31/18 09:32 General: Alert, Oriented x3, Cooperative, No apparent distress HEENT: Atraumatic, Normocephalic Oral: Moist Mucosa Neck: Supple Lungs: Normal air movement Abdomen: Non Tender, Obese Extremities: No cyanosis, Edema Skin: Ulcer/ Wound Wound Measurements and Assessment WC - Nurse 1 - General Ulcer Measurement Start: 12/31/18 09:32 Freq: Status: Active Protocol: Activity Type Activity Date Activity User E-Sign Co-Sign Detail Recorded Client Recorded Date Recorded By Document 12/31/18 09:32 JL [id number] 12/31/18 09:44 JL 12/31/18 09:32 Wound Center Nurse 1 [Ulcer Assessment] #7 LEFT MARSHALL -Current Size (cm) - Length 0.1 -Current Size (cm) - Width 1 -Current Size (cm) - Depth 0.1 -Total Square Cm 0.1 -Photo Taken No -Exudate Amt None Present -Wound Margin Flat & Intact -Granulation Amt Large (67-100%) -Granulation Quality [place] -Necrosis Amt Small (1-33%) -Necrotic Tissue Type Adherent Slough -Structure Exposed N/A -Texture (Amy-wound Skin Appearance) Scarring -Moisture (Amy-wound Skin Appearance No Abnormality ) -Color (Amy-wound Skin Appearance) Hemosiderin Staining -Temperature (Amy-wound Skin No Abnormality Appearance) (Pt Warm) -Tenderness on Palpation (Amy-wound No Skin Appearance) -Ulcer Cleansing Wound Cleanser -Foul Odor after Cleansing No -Anesthetic Used 4% Lidocaine Solution #6 L Med Lower Leg Sup -Current Size (cm) - Length 1.4 -Current Size (cm) - Width 0.4 -Current Size (cm) - Depth 0.1 -Total Square Cm 0.56 -Photo Taken No -Exudate Amt None Present -Wound Margin Flat & Intact -Granulation Amt Small (1-33%) -Granulation Quality [place] -Necrosis Amt None Present (0 %) -Structure Exposed N/A -Texture (Amy-wound Skin Appearance) Scarring -Moisture (Amy-wound Skin Appearance No Abnormality ) -Color (Amy-wound Skin Appearance) Hemosiderin Staining -Temperature (Amy-wound Skin No Abnormality Appearance) (Pt Warm) -Tenderness on Palpation (Amy-wound No Skin Appearance) -Ulcer Cleansing Wound Cleanser -Foul Odor after Cleansing No -Anesthetic Used 4% Lidocaine Solution #5 L Med Lower Leg -Current Size (cm) - Length 2 -Current Size (cm) - Width 3 -Current Size (cm) - Depth 0.1 -Total Square Cm 6 -Photo Taken No -Exudate Amt Small -Exudate Type Serosanguineous -Wound Margin Distinct, Outline Attached -Granulation Amt Large (67-100%) -Granulation Quality [place] -Necrosis Amt Small (1-33%) -Necrotic Tissue Type Adherent Slough -Texture (Amy-wound Skin Appearance) Localized Edema -Moisture (Amy-wound Skin Appearance No Abnormality ) -Color (Amy-wound Skin Appearance) Hemosiderin Staining -Temperature (Amy-wound Skin No Abnormality Appearance) (Pt Warm) -Tenderness on Palpation (Amy-wound No Skin Appearance) -Ulcer Cleansing Wound Cleanser -Foul Odor after Cleansing No -Anesthetic Used 4% Lidocaine Solution #3 R Grt Toe Plantar -Current Size (cm) - Length 0.2 -Current Size (cm) - Width 0.2 -Current Size (cm) - Depth 0.2 -Total Square Cm 0.04 -Photo Taken No -Exudate Amt None Present -Wound Margin Thickened -Granulation Amt Small (1-33%) -Granulation Quality [place] -Necrosis Amt Small (1-33%) -Necrotic Tissue Type Adherent Slough -Structure Exposed N/A -Texture (Amy-wound Skin Appearance) Scarring -Moisture (Amy-wound Skin Appearance Dry/Scaly ) -Color (Amy-wound Skin Appearance) Hemosiderin Staining -Temperature (Amy-wound Skin No Abnormality Appearance) (Pt Warm) -Tenderness on Palpation (Amy-wound No Skin Appearance) -Ulcer Cleansing Wound Cleanser -Foul Odor after Cleansing No -Anesthetic Used 4% Lidocaine Solution #2 L Foot Dorsal -Current Size (cm) - Length 0.8 -Current Size (cm) - Width 0.9 -Current Size (cm) - Depth 0.1 -Total Square Cm 0.72 -Photo Taken No -Exudate Amt None Present -Wound Margin Thickened -Granulation Amt None Present (0 %) -Necrosis Amt None Present (0 %) -Necrotic Tissue Type Adherent Slough -Structure Exposed N/A -Texture (Amy-wound Skin Appearance) Scarring -Moisture (Amy-wound Skin Appearance Dry/Scaly ) -Color (Amy-wound Skin Appearance) Hemosiderin Staining -Temperature (Amy-wound Skin No Abnormality Appearance) (Pt Warm) -Tenderness on Palpation (Amy-wound No Skin Appearance) -Ulcer Cleansing Wound Cleanser -Foul Odor after Cleansing No -Anesthetic Used 4% Lidocaine Solution [Edema Assessment] -Right Calf (cm) 39 -Right Ankle (cm) 21.4 -Left Calf (cm) 38.6 -Left Ankle (cm) 20.2 WC - Nurse 2 - General Ulcer CM Notes Start: 12/31/18 09:32 Freq: Status: Active Protocol: Activity Type Activity Date Activity User E-Sign Co-Sign Detail Recorded Client Recorded Date Recorded By Document 12/31/18 10:12 MW [id number] 12/31/18 10:22 MW 12/31/18 10:12 Wound Center Nurse 2 [Procedure/Treatment] #7 LEFT MARSHALL -Time 10:14 -Correct Patient Yes -Correct Side, Site, Position Yes -Correct Procedure Yes -Procedure Performed Yes -Type of Procedure Debridement -Clinical Debridement Subcutaneous -Post Debridement Size (cm) - Length 1.0 -Post Debridement Size (cm) - Width 1.0 -Post Debridement Size (cm) - Depth 0.1 -Total Square Cm 1.00 -Wound/Ulcer Outcome Not Healed -Ulcer Cleansing Rinsed/ Irrigated with Saline -Foul Odor after Cleansing No -Bioengineered Tissue No -Bleeding Controlled with Pressure -Offloading No -Treatment Response Procedure Tolerated Well #6 L Med Lower Leg Sup -Time 10:14 -Correct Patient Yes -Correct Side, Site, Position Yes -Correct Procedure Yes -Procedure Performed Yes -Type of Procedure Debridement -Clinical Debridement Subcutaneous -Post Debridement Size (cm) - Length 0.3 -Post Debridement Size (cm) - Width 0.3 -Post Debridement Size (cm) - Depth 0.1 -Total Square Cm 0.09 -Wound/Ulcer Outcome Not Healed -Ulcer Cleansing Rinsed/ Irrigated with Saline -Foul Odor after Cleansing No -Bioengineered Tissue No -Bleeding Controlled with Pressure -Offloading No -Treatment Response Procedure Tolerated Well #5 L Med Lower Leg -Time 10:14 -Correct Patient Yes -Correct Side, Site, Position Yes -Correct Procedure Yes -Procedure Performed Yes -Type of Procedure Debridement -Clinical Debridement Subcutaneous -Post Debridement Size (cm) - Length 3.5 -Post Debridement Size (cm) - Width 1.2 -Post Debridement Size (cm) - Depth 0.1 -Total Square Cm 4.20 -Wound/Ulcer Outcome Not Healed -Ulcer Cleansing Rinsed/ Irrigated with Saline -Foul Odor after Cleansing No -Bioengineered Tissue No -Bleeding Controlled with Pressure -Offloading No -Treatment Response Procedure Tolerated Well #3 R Grt Toe Plantar -Time 10:12 -Correct Patient Yes -Correct Side, Site, Position Yes -Correct Procedure Yes -Procedure Performed No -Post Debridement Size (cm) - Length 0.1 -Post Debridement Size (cm) - Width 0.1 -Post Debridement Size (cm) - Depth 0.1 -Total Square Cm 0.01 -Wound/Ulcer Outcome Not Healed -Ulcer Cleansing Rinsed/ Irrigated with Saline -Foul Odor after Cleansing No -Bioengineered Tissue No -Bleeding Controlled with Pressure -Offloading No -Treatment Response Procedure Tolerated Well #2 L Foot Dorsal -Time 10:13 -Correct Patient Yes -Correct Side, Site, Position Yes -Correct Procedure Yes -Procedure Performed Yes -Type of Procedure Debridement -Clinical Debridement Subcutaneous -Post Debridement Size (cm) - Length 0.4 -Post Debridement Size (cm) - Width 0.3 -Post Debridement Size (cm) - Depth 0.1 -Total Square Cm 0.12 -Wound/Ulcer Outcome Not Healed -Ulcer Cleansing Rinsed/ Irrigated with Saline -Foul Odor after Cleansing No -Bioengineered Tissue No -Bleeding Controlled with Pressure -Offloading No -Treatment Response Procedure Tolerated Well [See Physician Procedure note for Specifics] Pain Scale: 0-10 Numeric [Pain] -Is Patient Pain Free? Yes Musculoskeletal: No Muscle Wasting Neurological: Cranial nerves II-XII grossly intact Psych/Mental Status: Normal Affect Debridement Note Post-Debridement Measurements/Treatment WC - Nurse 2 - General Ulcer CM Notes Start: 12/31/18 09:32 Freq: Status: Active Protocol: Activity Type Activity Date Activity User E-Sign Co-Sign Detail Recorded Client Recorded Date Recorded By Document 12/31/18 10:12 MW [id number] 12/31/18 10:22 MW 12/31/18 10:12 Wound Center Nurse 2 #7 LEFT MARSHALL -Time 10:14 -Correct Patient Yes -Correct Side, Site, Position Yes -Correct Procedure Yes -Procedure Performed Yes -Type of Procedure Debridement -Clinical Debridement Subcutaneous -Post Debridement Size (cm) - Length 1.0 -Post Debridement Size (cm) - Width 1.0 -Post Debridement Size (cm) - Depth 0.1 -Total Square Cm 1.00 -Wound/Ulcer Outcome Not Healed -Ulcer Cleansing Rinsed/ Irrigated with Saline -Foul Odor after Cleansing No -Bioengineered Tissue No -Bleeding Controlled with Pressure -Offloading No -Treatment Response Procedure Tolerated Well #6 L Med Lower Leg Sup -Time 10:14 -Correct Patient Yes -Correct Side, Site, Position Yes -Correct Procedure Yes -Procedure Performed Yes -Type of Procedure Debridement -Clinical Debridement Subcutaneous -Post Debridement Size (cm) - Length 0.3 -Post Debridement Size (cm) - Width 0.3 -Post Debridement Size (cm) - Depth 0.1 -Total Square Cm 0.09 -Wound/Ulcer Outcome Not Healed -Ulcer Cleansing Rinsed/ Irrigated with Saline -Foul Odor after Cleansing No -Bioengineered Tissue No -Bleeding Controlled with Pressure -Offloading No -Treatment Response Procedure Tolerated Well #5 L Med Lower Leg -Time 10:14 -Correct Patient Yes -Correct Side, Site, Position Yes -Correct Procedure Yes -Procedure Performed Yes -Type of Procedure Debridement -Clinical Debridement Subcutaneous -Post Debridement Size (cm) - Length 3.5 -Post Debridement Size (cm) - Width 1.2 -Post Debridement Size (cm) - Depth 0.1 -Total Square Cm 4.20 -Wound/Ulcer Outcome Not Healed -Ulcer Cleansing Rinsed/ Irrigated with Saline -Foul Odor after Cleansing No -Bioengineered Tissue No -Bleeding Controlled with Pressure -Offloading No -Treatment Response Procedure Tolerated Well #3 R Grt Toe Plantar -Time 10:12 -Correct Patient Yes -Correct Side, Site, Position Yes -Correct Procedure Yes -Procedure Performed No -Post Debridement Size (cm) - Length 0.1 -Post Debridement Size (cm) - Width 0.1 -Post Debridement Size (cm) - Depth 0.1 -Total Square Cm 0.01 -Wound/Ulcer Outcome Not Healed -Ulcer Cleansing Rinsed/ Irrigated with Saline -Foul Odor after Cleansing No -Bioengineered Tissue No -Bleeding Controlled with Pressure -Offloading No -Treatment Response Procedure Tolerated Well #2 L Foot Dorsal -Time 10:13 -Correct Patient Yes -Correct Side, Site, Position Yes -Correct Procedure Yes -Procedure Performed Yes -Type of Procedure Debridement -Clinical Debridement Subcutaneous -Post Debridement Size (cm) - Length 0.4 -Post Debridement Size (cm) - Width 0.3 -Post Debridement Size (cm) - Depth 0.1 -Total Square Cm 0.12 -Wound/Ulcer Outcome Not Healed -Ulcer Cleansing Rinsed/ Irrigated with Saline -Foul Odor after Cleansing No -Bioengineered Tissue No -Bleeding Controlled with Pressure -Offloading No -Treatment Response Procedure Tolerated Well Pain Scale: 0-10 Numeric Is Patient Pain Free? Yes Wound debrided: Left dorsal foot Wound Grade/Stage: Stage III Type of Debridement: Excisional debridement Anesthesia Used: 4% Lidocaine Solution Depth: Down to and including healthy tissue, in the subcutaneous layer Percentage of wound debrided: 100 Instrument Used: 3mm curette Tissue Removed: Slough and devitalized tissue Severity: Fat Layer Exposed Amount of bleeding with debridement: Mild Bleeding Controlled with: Pressure Patient tolerated procedure well - Additional Wound Wound debrided: Left lower extremity medial cluster Wound Grade/Stage: Stage II Type of Debridement: Excisional debridement Anesthesia Used: 4% Lidocaine Solution Depth: Down to and including healthy tissue Percentage of wound debrided: 100 Instrument Used: 5mm curette Tissue Removed: Cough and devitalized tissue Severity: Fat Layer Exposed Amount of bleeding with debridement: Mild Bleeding Controlled with: Pressure Patient tolerated procedure: Patient tolerated procedure well - Additional Wound Wound debrided: Left lower extremity marshall Wound Grade/Stage: Stage II Type of Debridement: Excisional debridement Anesthesia Used: 4% Lidocaine Solution Depth: Down to and including healthy tissue, in the subcutaneous layer Percentage of wound debrided: 100 Instrument Used: 5mm curette Tissue Removed: Slough and devitalized tissue Severity: Limited To Skin Breakdown Amount of bleeding with debridement: Mild Bleeding Controlled with: Pressure Patient tolerated procedure: Patient tolerated procedure well - Additional Wound Wound debrided: Left lower extremity medial (superior Wound Grade/Stage: Stage II Type of Debridement: Excisional debridement Anesthesia Used: 4% Lidocaine Solution Depth: Down to and including healthy tissue, in the subcutaneous layer Percentage of wound debrided: 100 Instrument Used: 5mm curette Tissue Removed: Slough and devitalized tissue Severity: Fat Layer Exposed Amount of bleeding with debridement: Mild Bleeding Controlled with: Pressure Patient tolerated procedure: Patient tolerated procedure well Assessment/Plan Active Problems (Last Reviewed 12/11/18 @ 11:55 by Beto Dennis MD) Venous insufficiency of both lower extremities (Chronic) Ulcer of left lower extremity with fat layer exposed (Acute) Chronic ulcer of right great toe with fat layer exposed (Chronic) Traumatic ulcer of left foot with fat layer exposed (Chronic) Assessment: Traumatic ulcer of the left dorsal foot and chronic right great toe ulcer in a patient with poorly controlled diabetes mellitus. Plan: Improving edema and ulceration. Debridement done as documented above. Procedure was well-tolerated. Continue Promogran with Adaptic over top right great toe and left dorsal foot ulcer. Change daily to twice daily. Aquacel extra with Adaptic over top to left lower extremity superior, inferior and marshall ulcers. Change daily. Continue barrier to left lateral foot due to bony deformity. Double layer Tubi hvac/r service technician and Mendez wraps for edema management. Offloading strongly recommended for right lower extremity. Patient not compliant with offloading and dressing changes. Advised to follow-up with her court interpreter for proper fitting. Increased protein intake recommended. Optimal blood sugar control also strongly recommended. Due to her poor compliance with offloading and dressing changes and complex medical conditions, she has been made complex care. All her questions were answered and she was advised to call with any further questions or concerns. Follow-up in 2 weeks for nurse visit and 3 weeks with me per patient preference. This note was generated with [employer] dictation software. It may contain incorrect words, spelling, and punctuation that were not noted in checking the note before signing.
--- NOTE | 2018-12-31 12:58 | PN.PCM_ITS ---
(1) Ulcer of left lower extremity with fat layer exposed Status: Acute Current Visit: Yes Code(s): L97.922 - Non-pressure chronic ulcer of unspecified part of left lower leg with fat layer exposed (2) Venous insufficiency of both lower extremities Status: Chronic Current Visit: Yes Code(s): I87.2 - Venous insufficiency (chronic) (peripheral) (3) Chronic ulcer of right great toe with fat layer exposed Status: Chronic Current Visit: Yes Code(s): L97.512 - Non-pressure chronic ulcer of other part of right foot with fat layer exposed (4) Traumatic ulcer of left foot with fat layer exposed Status: Chronic Current Visit: Yes Code(s): L97.522 - Non-pressure chronic ulcer of other part of left foot with fat layer exposed Type of Wound Chief Complaint: Traumatic ulceration of left foot and chronic right great toe ulcer. History of Wound: Ms. Rothman is a 78-year-old who was referred to the wound center by her attorney lawyer for continued wound care. She has a chronic right great toe ulcer which she has been managing conservatively at home for about 6 months. However, she presented to a attorney lawyer due to left foot ulcer. She had a bowel drop on her foot about 3 weeks ago. She subsequently developed discoloration and swelling for which she was seen in the emergency room. Imaging done at that time was without any significant abnormality. Plan was to conservatively manage. However about a week ago. She noted an opening over the area with associated drainage/discharge. She was seen by her attorney lawyer and vacuum therapy was recommended. She reports a history of diabetes which is not well controlled. Last A1c per patient was around 9. She is currently on insulin. Progress of Wound: Improving. Bilateral lower extremity edema also improving. No new concerns at this time. - Physical Exam Vital Signs Temp Pulse Resp BP 96.8 F L 75 18 145/73 H 12/31/18 09:32 12/31/18 09:32 12/31/18 09:32 12/31/18 09:32 General: Alert, Oriented x3, Cooperative, No apparent distress HEENT: Atraumatic, Normocephalic Oral: Moist Mucosa Neck: Supple Lungs: Normal air movement Abdomen: Non Tender, Obese Extremities: No cyanosis, Edema Skin: Ulcer/ Wound Wound Measurements and Assessment WC - Nurse 1 - General Ulcer Measurement Start: 12/31/18 09:32 Freq: Status: Active Protocol: Activity Type Activity Date Activity User E-Sign Co-Sign Detail Recorded Client Recorded Date Recorded By Document 12/31/18 09:32 JL [id number] 12/31/18 09:44 JL 12/31/18 09:32 Wound Center Nurse 1 [Ulcer Assessment] #7 LEFT MARSHALL -Current Size (cm) - Length 0.1 -Current Size (cm) - Width 1 -Current Size (cm) - Depth 0.1 -Total Square Cm 0.1 -Photo Taken No -Exudate Amt None Present -Wound Margin Flat & Intact -Granulation Amt Large (67-100%) -Granulation Quality [place] -Necrosis Amt Small (1-33%) -Necrotic Tissue Type Adherent Slough -Structure Exposed N/A -Texture (Aym-wound Skin Appearance) Scarring -Moisture (Amy-wound Skin Appearance No Abnormality ) -Color (Amy-wound Skin Appearance) Hemosiderin Staining -Temperature (Amy-wound Skin No Abnormality Appearance) (Pt Warm) -Tenderness on Palpation (Amy-wound No Skin Appearance) -Ulcer Cleansing Wound Cleanser -Foul Odor after Cleansing No -Anesthetic Used 4% Lidocaine Solution #6 L Med Lower Leg Sup -Current Size (cm) - Length 1.4 -Current Size (cm) - Width 0.4 -Current Size (cm) - Depth 0.1 -Total Square Cm 0.56 -Photo Taken No -Exudate Amt None Present -Wound Margin Flat & Intact -Granulation Amt Small (1-33%) -Granulation Quality [place] -Necrosis Amt None Present (0 %) -Structure Exposed N/A -Texture (Amy-wound Skin Appearance) Scarring -Moisture (Amy-wound Skin Appearance No Abnormality ) -Color (Amy-wound Skin Appearance) Hemosiderin Staining -Temperature (Amy-wound Skin No Abnormality Appearance) (Pt Warm) -Tenderness on Palpation (Amy-wound No Skin Appearance) -Ulcer Cleansing Wound Cleanser -Foul Odor after Cleansing No -Anesthetic Used 4% Lidocaine Solution #5 L Med Lower Leg -Current Size (cm) - Length 2 -Current Size (cm) - Width 3 -Current Size (cm) - Depth 0.1 -Total Square Cm 6 -Photo Taken No -Exudate Amt Small -Exudate Type Serosanguineous -Wound Margin Distinct, Outline Attached -Granulation Amt Large (67-100%) -Granulation Quality [place] -Necrosis Amt Small (1-33%) -Necrotic Tissue Type Adherent Slough -Texture (Amy-wound Skin Appearance) Localized Edema -Moisture (Amy-wound Skin Appearance No Abnormality ) -Color (Amy-wound Skin Appearance) Hemosiderin Staining -Temperature (Amy-wound Skin No Abnormality Appearance) (Pt Warm) -Tenderness on Palpation (Amy-wound No Skin Appearance) -Ulcer Cleansing Wound Cleanser -Foul Odor after Cleansing No -Anesthetic Used 4% Lidocaine Solution #3 R Grt Toe Plantar -Current Size (cm) - Length 0.2 -Current Size (cm) - Width 0.2 -Current Size (cm) - Depth 0.2 -Total Square Cm 0.04 -Photo Taken No -Exudate Amt None Present -Wound Margin Thickened -Granulation Amt Small (1-33%) -Granulation Quality [place] -Necrosis Amt Small (1-33%) -Necrotic Tissue Type Adherent Slough -Structure Exposed N/A -Texture (Amy-wound Skin Appearance) Scarring -Moisture (May-wound Skin Appearance Dry/Scaly ) -Color (Amy-wound Skin Appearance) Hemosiderin Staining -Temperature (Amy-wound Skin No Abnormality Appearance) (Pt Warm) -Tenderness on Palpation (Amy-wound No Skin Appearance) -Ulcer Cleansing Wound Cleanser -Foul Odor after Cleansing No -Anesthetic Used 4% Lidocaine Solution #2 L Foot Dorsal -Current Size (cm) - Length 0.8 -Current Size (cm) - Width 0.9 -Current Size (cm) - Depth 0.1 -Total Square Cm 0.72 -Photo Taken No -Exudate Amt None Present -Wound Margin Thickened -Granulation Amt None Present (0 %) -Necrosis Amt None Present (0 %) -Necrotic Tissue Type Adherent Slough -Structure Exposed N/A -Texture (Amy-wound Skin Appearance) Scarring -Moisture (Amy-wound Skin Appearance Dry/Scaly ) -Color (Amy-wound Skin Appearance) Hemosiderin Staining -Temperature (Amy-wound Skin No Abnormality Appearance) (Pt Warm) -Tenderness on Palpation (Amy-wound No Skin Appearance) -Ulcer Cleansing Wound Cleanser -Foul Odor after Cleansing No -Anesthetic Used 4% Lidocaine Solution [Edema Assessment] -Right Calf (cm) 39 -Right Ankle (cm) 21.4 -Left Calf (cm) 38.6 -Left Ankle (cm) 20.2 WC - Nurse 2 - General Ulcer CM Notes Start: 12/31/18 09:32 Freq: Status: Active Protocol: Activity Type Activity Date Activity User E-Sign Co-Sign Detail Recorded Client Recorded Date Recorded By Document 12/31/18 10:12 MW [id number] 12/31/18 10:22 MW 12/31/18 10:12 Wound Center Nurse 2 [Procedure/Treatment] #7 LEFT MARSHALL -Time 10:14 -Correct Patient Yes -Correct Side, Site, Position Yes -Correct Procedure Yes -Procedure Performed Yes -Type of Procedure Debridement -Clinical Debridement Subcutaneous -Post Debridement Size (cm) - Length 1.0 -Post Debridement Size (cm) - Width 1.0 -Post Debridement Size (cm) - Depth 0.1 -Total Square Cm 1.00 -Wound/Ulcer Outcome Not Healed -Ulcer Cleansing Rinsed/ Irrigated with Saline -Foul Odor after Cleansing No -Bioengineered Tissue No -Bleeding Controlled with Pressure -Offloading No -Treatment Response Procedure Tolerated Well #6 L Med Lower Leg Sup -Time 10:14 -Correct Patient Yes -Correct Side, Site, Position Yes -Correct Procedure Yes -Procedure Performed Yes -Type of Procedure Debridement -Clinical Debridement Subcutaneous -Post Debridement Size (cm) - Length 0.3 -Post Debridement Size (cm) - Width 0.3 -Post Debridement Size (cm) - Depth 0.1 -Total Square Cm 0.09 -Wound/Ulcer Outcome Not Healed -Ulcer Cleansing Rinsed/ Irrigated with Saline -Foul Odor after Cleansing No -Bioengineered Tissue No -Bleeding Controlled with Pressure -Offloading No -Treatment Response Procedure Tolerated Well #5 L Med Lower Leg -Time 10:14 -Correct Patient Yes -Correct Side, Site, Position Yes -Correct Procedure Yes -Procedure Performed Yes -Type of Procedure Debridement -Clinical Debridement Subcutaneous -Post Debridement Size (cm) - Length 3.5 -Post Debridement Size (cm) - Width 1.2 -Post Debridement Size (cm) - Depth 0.1 -Total Square Cm 4.20 -Wound/Ulcer Outcome Not Healed -Ulcer Cleansing Rinsed/ Irrigated with Saline -Foul Odor after Cleansing No -Bioengineered Tissue No -Bleeding Controlled with Pressure -Offloading No -Treatment Response Procedure Tolerated Well #3 R Grt Toe Plantar -Time 10:12 -Correct Patient Yes -Correct Side, Site, Position Yes -Correct Procedure Yes -Procedure Performed No -Post Debridement Size (cm) - Length 0.1 -Post Debridement Size (cm) - Width 0.1 -Post Debridement Size (cm) - Depth 0.1 -Total Square Cm 0.01 -Wound/Ulcer Outcome Not Healed -Ulcer Cleansing Rinsed/ Irrigated with Saline -Foul Odor after Cleansing No -Bioengineered Tissue No -Bleeding Controlled with Pressure -Offloading No -Treatment Response Procedure Tolerated Well #2 L Foot Dorsal -Time 10:13 -Correct Patient Yes -Correct Side, Site, Position Yes -Correct Procedure Yes -Procedure Performed Yes -Type of Procedure Debridement -Clinical Debridement Subcutaneous -Post Debridement Size (cm) - Length 0.4 -Post Debridement Size (cm) - Width 0.3 -Post Debridement Size (cm) - Depth 0.1 -Total Square Cm 0.12 -Wound/Ulcer Outcome Not Healed -Ulcer Cleansing Rinsed/ Irrigated with Saline -Foul Odor after Cleansing No -Bioengineered Tissue No -Bleeding Controlled with Pressure -Offloading No -Treatment Response Procedure Tolerated Well [See Physician Procedure note for Specifics] Pain Scale: 0-10 Numeric [Pain] -Is Patient Pain Free? Yes Musculoskeletal: No Muscle Wasting Neurological: Cranial nerves II-XII grossly intact Psych/Mental Status: Normal Affect Debridement Note Post-Debridement Measurements/Treatment WC - Nurse 2 - General Ulcer CM Notes Start: 12/31/18 09:32 Freq: Status: Active Protocol: Activity Type Activity Date Activity User E-Sign Co-Sign Detail Recorded Client Recorded Date Recorded By Document 12/31/18 10:12 MW [id number] 12/31/18 10:22 MW 12/31/18 10:12 Wound Center Nurse 2 #7 LEFT MARSHALL -Time 10:14 -Correct Patient Yes -Correct Side, Site, Position Yes -Correct Procedure Yes -Procedure Performed Yes -Type of Procedure Debridement -Clinical Debridement Subcutaneous -Post Debridement Size (cm) - Length 1.0 -Post Debridement Size (cm) - Width 1.0 -Post Debridement Size (cm) - Depth 0.1 -Total Square Cm 1.00 -Wound/Ulcer Outcome Not Healed -Ulcer Cleansing Rinsed/ Irrigated with Saline -Foul Odor after Cleansing No -Bioengineered Tissue No -Bleeding Controlled with Pressure -Offloading No -Treatment Response Procedure Tolerated Well #6 L Med Lower Leg Sup -Time 10:14 -Correct Patient Yes -Correct Side, Site, Position Yes -Correct Procedure Yes -Procedure Performed Yes -Type of Procedure Debridement -Clinical Debridement Subcutaneous -Post Debridement Size (cm) - Length 0.3 -Post Debridement Size (cm) - Width 0.3 -Post Debridement Size (cm) - Depth 0.1 -Total Square Cm 0.09 -Wound/Ulcer Outcome Not Healed -Ulcer Cleansing Rinsed/ Irrigated with Saline -Foul Odor after Cleansing No -Bioengineered Tissue No -Bleeding Controlled with Pressure -Offloading No -Treatment Response Procedure Tolerated Well #5 L Med Lower Leg -Time 10:14 -Correct Patient Yes -Correct Side, Site, Position Yes -Correct Procedure Yes -Procedure Performed Yes -Type of Procedure Debridement -Clinical Debridement Subcutaneous -Post Debridement Size (cm) - Length 3.5 -Post Debridement Size (cm) - Width 1.2 -Post Debridement Size (cm) - Depth 0.1 -Total Square Cm 4.20 -Wound/Ulcer Outcome Not Healed -Ulcer Cleansing Rinsed/ Irrigated with Saline -Foul Odor after Cleansing No -Bioengineered Tissue No -Bleeding Controlled with Pressure -Offloading No -Treatment Response Procedure Tolerated Well #3 R Grt Toe Plantar -Time 10:12 -Correct Patient Yes -Correct Side, Site, Position Yes -Correct Procedure Yes -Procedure Performed No -Post Debridement Size (cm) - Length 0.1 -Post Debridement Size (cm) - Width 0.1 -Post Debridement Size (cm) - Depth 0.1 -Total Square Cm 0.01 -Wound/Ulcer Outcome Not Healed -Ulcer Cleansing Rinsed/ Irrigated with Saline -Foul Odor after Cleansing No -Bioengineered Tissue No -Bleeding Controlled with Pressure -Offloading No -Treatment Response Procedure Tolerated Well #2 L Foot Dorsal -Time 10:13 -Correct Patient Yes -Correct Side, Site, Position Yes -Correct Procedure Yes -Procedure Performed Yes -Type of Procedure Debridement -Clinical Debridement Subcutaneous -Post Debridement Size (cm) - Length 0.4 -Post Debridement Size (cm) - Width 0.3 -Post Debridement Size (cm) - Depth 0.1 -Total Square Cm 0.12 -Wound/Ulcer Outcome Not Healed -Ulcer Cleansing Rinsed/ Irrigated with Saline -Foul Odor after Cleansing No -Bioengineered Tissue No -Bleeding Controlled with Pressure -Offloading No -Treatment Response Procedure Tolerated Well Pain Scale: 0-10 Numeric Is Patient Pain Free? Yes Wound debrided: Left dorsal foot Wound Grade/Stage: Stage III Type of Debridement: Excisional debridement Anesthesia Used: 4% Lidocaine Solution Depth: Down to and including healthy tissue, in the subcutaneous layer Percentage of wound debrided: 100 Instrument Used: 3mm curette Tissue Removed: Slough and devitalized tissue Severity: Fat Layer Exposed Amount of bleeding with debridement: Mild Bleeding Controlled with: Pressure Patient tolerated procedure well - Additional Wound Wound debrided: Left lower extremity medial cluster Wound Grade/Stage: Stage II Type of Debridement: Excisional debridement Anesthesia Used: 4% Lidocaine Solution Depth: Down to and including healthy tissue Percentage of wound debrided: 100 Instrument Used: 5mm curette Tissue Removed: Cough and devitalized tissue Severity: Fat Layer Exposed Amount of bleeding with debridement: Mild Bleeding Controlled with: Pressure Patient tolerated procedure: Patient tolerated procedure well - Additional Wound Wound debrided: Left lower extremity marshall Wound Grade/Stage: Stage II Type of Debridement: Excisional debridement Anesthesia Used: 4% Lidocaine Solution Depth: Down to and including healthy tissue, in the subcutaneous layer Percentage of wound debrided: 100 Instrument Used: 5mm curette Tissue Removed: Slough and devitalized tissue Severity: Limited To Skin Breakdown Amount of bleeding with debridement: Mild Bleeding Controlled with: Pressure Patient tolerated procedure: Patient tolerated procedure well - Additional Wound Wound debrided: Left lower extremity medial (superior Wound Grade/Stage: Stage II Type of Debridement: Excisional debridement Anesthesia Used: 4% Lidocaine Solution Depth: Down to and including healthy tissue, in the subcutaneous layer Percentage of wound debrided: 100 Instrument Used: 5mm curette Tissue Removed: Slough and devitalized tissue Severity: Fat Layer Exposed Amount of bleeding with debridement: Mild Bleeding Controlled with: Pressure Patient tolerated procedure: Patient tolerated procedure well Assessment/Plan Active Problems (Last Reviewed 12/11/18 @ 11:55 by Beto Dennis MD) Venous insufficiency of both lower extremities (Chronic) Ulcer of left lower extremity with fat layer exposed (Acute) Chronic ulcer of right great toe with fat layer exposed (Chronic) Traumatic ulcer of left foot with fat layer exposed (Chronic) Assessment: Traumatic ulcer of the left dorsal foot and chronic right great toe ulcer in a patient with poorly controlled diabetes mellitus. Plan: Improving edema and ulceration. Debridement done as documented above. Procedure was well-tolerated. Continue Promogran with Adaptic over top right great toe and left dorsal foot ulcer. Change daily to twice daily. Aquacel extra with Adaptic over top to left lower extremity superior, inferior and marshall ulcers. Change daily. Continue barrier to left lateral foot due to bony deformity. Double layer Tubi patient registration clerk and Mendez wraps for edema management. Offloading strongly recommended for right lower extremity. Patient not compliant with offloading and dressing changes. Advised to follow-up with her attorney lawyer for proper fitting. Increased protein intake recommended. Optimal blood sugar control also strongly recommended. Due to her poor compliance with offloading and dressing changes and complex medical conditions, she has been made complex care. All her questions were answered and she was advised to call with any further questions or concerns. Follow-up in 2 weeks for nurse visit and 3 weeks with me per patient preference. This note was generated with [employer] dictation software. It may contain incorrect words, spelling, and punctuation that were not noted in checking the note before signing.
== END 2019-01-24 23:59 ==
LOC: WC 08:51
PROVIDERS: Family Provider Internal Medicine; PCP Internal Medicine; Visit Provider Internal Medicine
DX: E11.621 Type 2 diabetes mellitus with foot ulcer (principal); E11.65 Type 2 diabetes mellitus with hyperglycemia; I87.2 Venous insufficiency (chronic) (peripheral); L97.522 Non-pressure chronic ulcer of other part of left foot with fat layer exposed; R60.0 Localized edema; Z79.4 Long term (current) use of insulin; L97.822 Non-pressure chronic ulcer of other part of left lower leg with fat layer exposed; L97.821 Non-pressure chronic ulcer of other part of left lower leg limited to breakdown of skin; E11.622 Type 2 diabetes mellitus with other skin ulcer
CPT/HCPCS: 11042

== ENCOUNTER → 2019-01-07 | Outpatient (CLI) | payer MEDICARE, SELFPAY ==
[2018-11-26 13:18] VITALS: BMI 30.3
[2018-12-31 09:32] VITALS: BMI 33.3
[2019-01-07 10:41] LABS: International Normalized Ratio 2.4; Prothrombin Time (Protime)PT. 26.4 SECONDS (11.7-14.9)
[2019-01-07 11:19] LABS: ALB/GLOB Ratio 0.8 RATIO (0.9-2.4); AST(SGOT) 22 U/L (15-37); Alanine Aminotransfer ALT/SGPT 28 U/L (13-56); Albumin, Serum 3.1 g/dL (3.2-5.0); Alkaline Phosphatase 174 U/L (45-117); Anion Gap 2 (5-15); BUN 29 mg/dL (7-18); BUN/Creat Ratio 15.3 RATIO (10-20); Calcium,Total 8.3 mg/dL (8.5-10.1); Chloride 105 mmol/L (98-107); Creatinine, Serum 1.89 mg/dL (0.55-1.02); EST Glomerular Filtration Rate 27 mL/min (>60); Est Glom Filt Rate - Afr Amer 33 mL/min (>60); Free T3 1.8 pg/mL (2.18-3.98); Globulin 3.7 g/dL (2.2-4.2); Glucose 244 mg/dL (74-106); Magnesium 2.1 mg/dL (1.6-2.6); Phosphorus 3.2 mg/dL (2.5-4.9); Potassium 3.8 mmol/L (3.5-5.1); Protein, Total 6.8 g/dL (6.4-8.2); Sodium Level 138 mmol/L (136-145); Thyroid Stim Hormone (TSH) 9.45 uIU/mL (0.358-3.74)
[2019-01-07 11:35] LABS: Hemoglobin A1c 9.3 % (4.2-6.3)
[2019-01-07 15:03] LABS: PTHIN 156.6 pg/mL (18.4-80.1)
== END | disposition home or self-care (01) ==
LOC: LAB.FUTURE 09:46
PROVIDERS: Internal Medicine Cardiovascular Disease; Family Provider Internal Medicine; PCP Internal Medicine; Referring Provider Internal Medicine; Visit Provider Internal Medicine
DX: I48.0 Paroxysmal atrial fibrillation (principal); Z51.81 Encounter for therapeutic drug level monitoring; Z79.01 Long term (current) use of anticoagulants; E11.22 Type 2 diabetes mellitus with diabetic chronic kidney disease; N18.4 Chronic kidney disease, stage 4 (severe); N25.81 Secondary hyperparathyroidism of renal origin; E03.9 Hypothyroidism, unspecified; Z79.899 Other long term (current) drug therapy; E11.621 Type 2 diabetes mellitus with foot ulcer; L97.511 Non-pressure chronic ulcer of other part of right foot limited to breakdown of skin
CPT/HCPCS: 36415; 80053; 83036; 83735; 83970; 84100; 84443; 84481; 85610

== ENCOUNTER 2019-01-10 17:07 | Inpatient (IN) | payer MEDICARE, SELFPAY ==
[2019-01-10] VITALS (15 sets, daily range): BP systolic 134–177; BP diastolic 58–110; PULSE 61–87; RESP 12–32; TEMP 37.1–38.2; O2SAT 88–100; BMI 33.9; BMI 33.5
--- NOTE | 2019-01-10 17:11 | EKG12_ITS ---
Test Reason : SOB Blood Pressure : / mmHG Vent. Rate : 077 BPM Atrial Rate : 073 BPM P-R Int : 000 ms QRS Dur : 090 ms QT Int : 410 ms P-R-T Axes : 000 108 042 degrees QTc Int : 463 ms Sinus rhythm Rightward axis Nonspecific ST abnormality Abnormal ECG Confirmed by RAVIN IZAGUIRRE, JAZMIN ([id number]), newspaper photo editor ASUNCION BROWNLEE ([id number]) on 01/11/2019 1:17:49 PM Referred By: TRAN Confirmed By:JAZMIN ALICIA MD
--- NOTE | 2019-01-10 17:12 | RAD_ITS ---
STUDY: X-RAY CHEST REASON FOR EXAM: Female, 78 years old. Shortness of breath. TECHNIQUE: Single AP portable view of the chest. COMPARISON: Prior chest radiograph of September 14, 2018 FINDINGS: Lung garcia remain generally well expanded without new consolidation, substantial atelectasis or pleural effusion. Linear type interstitial lung markings may be slightly increased. Stable cardiac size status post prior midline sternotomy for cardiac valve replacement. Normal mediastinum and jacki. Normal visualized pulmonary arteries. Normal visualized aortic arch and descending thoracic aorta. Normal visualized thoracic spine. Status post right rotator cuff repair. There is no demonstrated abnormality of the visualized soft tissue structures of the upper abdomen. RAD/Chest 1 View (Portable) IMPRESSION: Negative for new major consolidation, focal atelectasis or a substantial pleural effusion. Interstitial lung markings are probably slightly increased. Stable cardiac size status post prior midline sternotomy for cardiac valve replacement. Electronically Signed: Zoë Cardoza MD at 17:48 EDT , Service support ,
[2019-01-10] MEDS: Albuterol 2.5 MG/3 ML VIAL.NEB. INHALATION ×3 (17:16→18:40)
[2019-01-10] MEDS: Ipratropium/Albuterol Sulfate 3 ML AMPUL.NEB INHALATION ×2 (17:16→22:16)
[2019-01-10] MEDS: MethylPREDNISolone 125 MG/2 ML Vial IV (17:19)
[2019-01-10] MEDS: Furosemide 100 MG/10 ML Vial 80 MG IV (17:19)
[2019-01-10 17:33] LABS: Absolute Lymphocyte Count 1.08 X10^3/ul (0.83-4.51); Absolute Neutrophil Count 15.1 X10^3/uL (2.0-7.7); Basophil# 0.02 X10^3/uL; Basophil% 0.1 % (0-1); Eosinophil# 1.26 X10^3/uL; Eosinophils% 6.9 % (0-5); Hematocrit 38.1 % (37-47); Hemoglobin 11.9 g/dl (12.0-15.0); Lymphocyte # 1.08 X10^3/ul (4.0); Lymphocyte % 5.9 % (19-41); Mean Corp Hgb Conc 31.2 g/gl (32-36); Mean Corpuscular Hgb 25.1 pg (27.0-32.0); Mean Corpuscular Volume 80.2 fL (81-99); Monocyte% 3.8 % (0-10); Neutrophil # 15.12 X10^3/uL (2.7-7.7); Neutrophil % 82.9 % (47-70); Platelet Count 209 K/mm3 (150-450); RBC Distribution Width CV 16.6 % (11.6-14.6); RBC Distribution Width SD 47.7 fl (35.1-43.9); Red Blood Count 4.75 M/mm3 (4.2-5.4); White Blood Count 18.3 K/mm3 (4.4-11.0)
[2019-01-10 17:35] LABS: POSITIVE COUNT NO; POSITIVE DIFFERENTIAL NO; POSITIVE MORPHOLOGY NO
[2019-01-10 17:50] LABS: Anion Gap 13 (5-15); BUN 37 mg/dL (7-18); BUN/Creat Ratio 17.3 RATIO (10-20); Calcium,Total 8.5 mg/dL (8.5-10.1); Chloride 100 mmol/L (98-107); Creatinine, Serum 2.14 mg/dL (0.55-1.02); EST Glomerular Filtration Rate 24 mL/min (>60); Est Glom Filt Rate - Afr Amer 29 mL/min (>60); Estimated Creatinine Clearance 18.21 ml/min; Glucose 283 mg/dL (74-106); Potassium 4.2 mmol/L (3.5-5.1); Sodium Level 141 mmol/L (136-145)
--- NOTE | 2019-01-10 17:59 | ED.DCSUM_ITS ---
History of Present Illness Chief Complaint: Shortness of Breath Informant: Patient, Spouse/S.O. Narrative: Patient presenting for evaluation secondary to shortness of breath. Patient has a underlying history of congestive heart failure as well as COPD. She is on chronic home oxygen. Patient states that over the course of the last 2 days she has had worsening shortness of breath that is associated with cough but no fever. Patient additionally states that she has had about a 20 pound weight gain over the last 2 weeks that she is only been able to get about 4 pounds of off recently. Patient states that today while she was [facility] she had a progressive and precipitous worsening of her shortness of breath to the point where she thought she was not good to make it to the hospital. She denies any chest pain associated with this. Shortness of breath is severe. Review of systems otherwise negative. Past Medical History - Allergies and Home Meds Allergies/Adverse Reactions: Allergies dronedarone [From Multaq] Allergy (Severe, Verified 01/10/19 17:08) difficulty breathing dronedarone HCl [From Multaq] Allergy (Verified 01/10/19 17:08) Other unable to breath levofloxacin [From Levaquin] Adverse Reaction (Severe, Verified 01/10/19 17:08) hallucinations, hot flashes quinapril [From Accupril] Adverse Reaction (Severe, Verified 01/10/19 17:08) near syncope cortisone Adverse Reaction (Intermediate, Verified 01/10/19 17:08) swelling hydralazine Adverse Reaction (Intermediate, Verified 01/10/19 17:08) weakness Beta-Blockers (Beta-Adrenergic Bloc Adverse Reaction (Verified 01/10/19 17:08) Other WHEEZING, shaking, passes out CARDURA Allergy (Uncoded 01/10/19 17:08) Other PT NOT SURE- POSSIBLE SWELLING NORVASC Allergy (Uncoded 01/10/19 17:08) Swelling SCALLOPS Allergy (Uncoded 01/10/19 17:08) Swelling SULFA Allergy (Uncoded 01/10/19 17:08) Other SPOTS IN MOUTH/SORE MOUTH ATIVAN Adverse Reaction (Uncoded 01/10/19 17:08) Other HALLUCINATIONS METATOPOLOL TARTATE Adverse Reaction (Uncoded 01/10/19 17:08) Other Primary Care Physician: Jovana Moulton MD [Primary Care Provider] - Surgical History: angioplasty, cataract, - Smoking Status: Never smoker - Family History Maternal Family History: Family History (Last Reviewed 12/11/18 @ 11:55 by Beto Dennis MD) Father CAD (coronary artery disease) Hypertension Myocardial infarction Sudden cardiac Hyperlipidemia Mother Breast cancer Brother Cancer Sister Breast cancer Hyperlipidemia Sister Hyperlipidemia Family History: Reports: Cancer Paternal Family History: Family History (Last Reviewed 12/11/18 @ 11:55 by Beto Dennis MD) Father CAD (coronary artery disease) Hypertension Myocardial infarction Sudden cardiac Hyperlipidemia Mother Breast cancer Brother Cancer Sister Breast cancer Hyperlipidemia Sister Hyperlipidemia Family History: Reports: Heart Disease, Stroke Sibling Family History: Family History (Last Reviewed 12/11/18 @ 11:55 by Beto Dennis MD) Father CAD (coronary artery disease) Hypertension Myocardial infarction Sudden cardiac Hyperlipidemia Mother Breast cancer Brother Cancer Sister Breast cancer Hyperlipidemia Sister Hyperlipidemia Family History: Reports: Cancer - in brother and sister Review of Systems All systems negative except as indicated General: Denies: Fever Cardiovascular: Denies: Chest pain Respiratory: Reports: Dyspnea, Cough Physical Exam Vital Signs/Narrative: Vital Signs Temp Pulse Resp BP Pulse Ox 01/10/19 17:43 78 21 H 177/61 H 100 01/10/19 17:16 79 27 H 01/10/19 17:10 81 32 H 97 01/10/19 17:09 99.0 F 87 27 H 144/110 H 88 General: Well nourished, Well developed, - - Obvious respiratory distress Head: Normocephalic, Atraumatic Eyes: Perrl, EOMI ENT: Moist mucous membranes, No rhinorrhea Neck: Supple, Nontender Cardiovascular: Regular rhythm, Tachycardia, - - 2+ radial pulses bilaterally symmetric Respiratory: - - Patient has respiratory distress with very poor air movement and tachypnea Abdomen: Soft, Nontender, Nondistended, Normal bowel sounds Extremities: Edema - 2+ bilaterally symmetric Skin: Normal color, No rash Neurological: Alert, Oriented x3, Cranial nerves II-XII grossly intact, Normal Strength, Normal Sensation Psychological: Normal affect, Normal Mood Diagnostic/Tx/Re-eval - EKG Initial EKG Interpretation: - - Sinus rhythm at 77 with a rightward axis, nonspecific ST changes, normal T waves, no evidence of ST elevation. No significant changes from prior EKG in October of this year. No acute ischemia or arrhythmia. - Medical Decision Making Patient presented secondary to respiratory distress. Patient was immediately placed on BiPAP and was given albuterol and DuoNeb treatments as well as prednisone and Lasix. Patient's work-up shows pulmonary vascular congestion on chest x-ray. She was found to have a leukocytosis, but no signs of pneumonia so antibiotics currently are withheld. Patient has chronic kidney disease which seems to be reasonably at her baseline. Patient likely at this point has a combination of COPD and CHF. I do believe that she requires admission. I discussed this with the hospitalist. Critical care time (excluding procedures): 30-74 minutes - Critical care was provided due to respiratory distress with BiPAP administration, multiple re- evaluations, documentation, and review of old records. ED Disposition - Plan for ED Patient: Disposition: Acute Care Hospital [facility] Diagnosis: Respiratory failure, CHF exacerbation, COPD exacerbation, Chronic kidney disease
[2019-01-10 18:01] LABS: BNP,B-Type NATRIURETIC PEPTIDE 126.1 pg/mL (0-100)
--- NOTE | 2019-01-10 18:04 | ED.RN ---
ED PHYSICIAN ALERTED OF PT MEETING SEPSIS CRITERIA, BUT PHYSICIAN STATED THAT PATIENT IS NOT SEPTIC AND DOESN'T WANT SEPSIS PROTOCOL ORDERED.
--- NOTE | 2019-01-10 18:06 | HP.PCM_ITS ---
Problem List (1) Venous insufficiency of both lower extremities Status: Chronic (2) CHF exacerbation Status: Chronic Qualifiers: Heart failure type: diastolic Qualified Code(s): I50.33 - Acute on chronic diastolic (congestive) heart failure (3) Essential (primary) hypertension Status: Chronic (4) H/O coronary artery bypass surgery Status: Chronic Comment: CABG x 1 : SVG to distal LAD 09/29/2014 (5) Paroxysmal atrial fibrillation Status: Chronic (6) Hyperlipidemia Status: Chronic Qualifiers: Hyperlipidemia type: unspecified Qualified Code(s): E78.5 - Hyperlipidemia, unspecified History of Present Illness Date of Admission: 01/10/19 Chief Complaint: Shortness of breath - for months, worse over 1-2 days The patient is a 78 year old F with past medical history of mitral valve replacement with bioprosthetic valve, moderate to severe pulmonary hypertension, chronic diastolic CHF, paroxysmal atrial fibrillation, hypertension, type II DM, chronic venous stasis dermatitis with resultant bilateral leg ulcers who comes in with progressive shortness of breath ongoing for weeks worse over the last 1 to 2 days. Patient says that she gained about 20 pounds in the first week since her discharge. She followed up with the practicing md anesthesiologist in a week and her Lasix was increased to 40 mg twice a day. She was able to lose 4 pounds out of the 20 but was unable to lose the last 16 pounds. She has not followed up with her practicing md anesthesiologist again. She has an appointment tomorrow with the cardiology nurse practitioner. gave her collaborating history of dietary indiscretion -had hotdogs yesterday, as well as no fluid restriction. Patient complains of orthopnea and PND as well as worsening bilateral lower extremity swelling. Vitals in the ED showed temp 99.0F, BP 144/110, RR 27, SpO2 was 88% on room, improved to 100% on Bipap. Admitting blood work showed WBC 18.3, Hb 11.9, Plt 209, BMP Is unremarkable except for BUN/Cr 37/2.14, BNPep 126.1. Chest X-ray showed some increased interstitial marking. Past Medical History Past Medical History (Chronic Problems): Chronic Problems (Last Reviewed 12/11/18 @ 11:55 by Beto Dennis MD) Venous insufficiency of both lower extremities (Chronic) CHF exacerbation (Chronic) COPD exacerbation (Chronic) Chronic kidney disease (Chronic) Secondary pulmonary arterial hypertension (Chronic) Chronic diastolic (congestive) heart failure (Chronic) Essential (primary) hypertension (Chronic) Non-rheumatic mitral valve stenosis (Chronic) H/O coronary 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) CABG x 1 : SVG to distal LAD 09/29/2014 Atherosclerosis of coronary artery of [place] heart without angina pectoris (Chronic) CABG x 1 : SVG to distal LAD 09/29/2014 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 Angela Alexis History of mitral valve replacement with bioprosthetic valve (Chronic 09/29/14) 09/29/2014: MVR with 27 mm Medtronic tisue valve per Dr. Angela Alexis Hyperlipidemia (Chronic) Medical History: Medical History (Last Reviewed 12/11/18 @ 11:55 by Beto Dennis MD) Secondary pulmonary arterial hypertension (Chronic) I27.21 Chronic diastolic (congestive) heart failure (Chronic) I50.32 Ischemic cerebrovascular accident (CVA) (Resolved) I63.9 ischemic stroke w hemorrhagic transformation in the setting of coumadin an ticoagulation Essential (primary) hypertension (Chronic) I10 Non-rheumatic mitral valve stenosis (Chronic) I34.2 Atherosclerosis of coronary artery of [place] heart without angina pectoris (Chronic) I25.10 CABG x 1 : SVG to distal LAD 09/29/2014 Chronic hypoxemic respiratory failure (Chronic) J96.11 Paroxysmal atrial fibrillation (Chronic) I48.0 Hyperlipidemia (Chronic) E78.5 Dyspnea on exertion R06.09 Edema R60.9 Pulmonary hypertension, moderate to severe I27.20 Shortness of breath R06.02 Anemia D64.9 Chronic renal failure N18.9 Depression F32.9 Peripheral vascular disease I73.9 Type 2 diabetes mellitus E11.9 Subdural bleeding (Resolved) I62.00 Allergies dronedarone [From Multaq] Allergy (Severe, Verified 01/10/19 17:08) difficulty breathing dronedarone HCl [From Multaq] Allergy (Verified 01/10/19 17:08) Other unable to breath levofloxacin [From Levaquin] Adverse Reaction (Severe, Verified 01/10/19 17:08) hallucinations, hot flashes quinapril [From Accupril] Adverse Reaction (Severe, Verified 01/10/19 17:08) near syncope cortisone Adverse Reaction (Intermediate, Verified 01/10/19 17:08) swelling hydralazine Adverse Reaction (Intermediate, Verified 01/10/19 17:08) weakness Beta-Blockers (Beta-Adrenergic Bloc Adverse Reaction (Verified 01/10/19 17:08) Other WHEEZING, shaking, passes out CARDURA Allergy (Uncoded 01/10/19 17:08) Other PT NOT SURE- POSSIBLE SWELLING NORVASC Allergy (Uncoded 01/10/19 17:08) Swelling SCALLOPS Allergy (Uncoded 01/10/19 17:08) Swelling SULFA Allergy (Uncoded 01/10/19 17:08) Other SPOTS IN MOUTH/SORE MOUTH ATIVAN Adverse Reaction (Uncoded 01/10/19 17:08) Other HALLUCINATIONS METATOPOLOL TARTATE Adverse Reaction (Uncoded 01/10/19 17:08) Other Home Medications: Ambulatory Orders Medication Instructions Recorded Albuterol Inhaler [Ventolin Hfa] 2 puff INHALATION Q4H PRN PRN #1 10/27/14 inhaler Aspirin E.C. [Ecotrin] 81 mg PO QHS 01/07/18 Albuterol Aerosols [Ventolin 3 ml INHALATION BID 06/22/18 Aerosols] Multivit-Min/Iron/Folic/Lutein 1 tab PO DAILY 06/22/18 [Centrum Silver Women Tablet] levothyroxine 88 mcg tablet 88 mcg PO DAILY 30 Days #90 tab 07/27/18 insulin lispro (U- 100) 100 See Protocol SC .with meals ml 09/29/18 unit/mL subcutaneous pen Lecithin, Soy [Lecithin] 1,200 mg PO DAILY 11/23/18 Losartan Potassium [Cozaar] 50 mg PO DAILY 11/23/18 Warfarin Sodium 3 mg PO SUWETHFRSA 11/23/18 Warfarin Sodium [Coumadin] 4 mg PO MOTU 11/23/18 Calcitriol [Rocaltrol] 0.25 mcg PO MOWEFR cap 11/25/18 Fluticasone/Umeclidin/Vilanter 1 ea IH DAILY #1 inhaler 11/26/18 [Trelegy Ellipta 100-62.5-25] Guaifenesin [Mucinex] 1,200 mg PO BID #20 tab 11/26/18 Insulin Lispro [Humalog KwikPen] 10 unit SUBCUT TIDAC #1 insuln.pen 11/26/18 loratadine 10 mg capsule 10 mg PO QDAY #30 cap 12/10/18 montelukast 10 mg tablet 10 mg PO QPM #30 tab 12/10/18 furosemide 40 mg tablet 40 mg PO BID #180 tab 12/11/18 amiodarone 200 mg tablet 100 mg PO DAILY #45 tab 12/28/18 Insulin Glargine [Lantus SoloStar 40 units SC DAILY 01/10/19 Pen] Surgical History: Surgical History (Last Reviewed 12/11/18 @ 11:55 by Beto Dennis MD) H/O coronary artery bypass surgery (Chronic) Onset Date: 09/29/14 Z95.1 CABG x 1 : SVG to distal LAD 09/29/2014 History of maze procedure (Chronic) Onset Date: 09/29/14 Z98.890 09/29/2014 atricure pulmonary vein isolation MAZE with ligation of left atrial appendage per Dr. Angela Alexis History of mitral valve replacement with bioprosthetic valve (Chronic) Onset Date: 09/29/14 Z95.3 09/29/2014: MVR with 27 mm Medtronic tisue valve per Dr. Angela Alexis History of hysterectomy Z90.710 History of PTCA Z98.61 Surgical History: angioplasty, cataract, hysterectomy, - - s/p maze procedure, s/p mitral replacement Smoking Status: Never smoker - *Family History Maternal Family History: Family History (Last Reviewed 12/11/18 @ 11:55 by Beto Dennis MD) Father CAD (coronary artery disease) Hypertension Myocardial infarction Sudden cardiac Hyperlipidemia Mother Breast cancer Brother Cancer Sister Breast cancer Hyperlipidemia Sister Hyperlipidemia History Items: Cancer Paternal Family History: Family History (Last Reviewed 12/11/18 @ 11:55 by Beto Dennis MD) Father CAD (coronary artery disease) Hypertension Myocardial infarction Sudden cardiac Hyperlipidemia Mother Breast cancer Brother Cancer Sister Breast cancer Hyperlipidemia Sister Hyperlipidemia History Items: Heart Disease, Stroke Sibling Family History: Family History (Last Reviewed 12/11/18 @ 11:55 by Beto Dennis MD) Father CAD (coronary artery disease) Hypertension Myocardial infarction Sudden cardiac Hyperlipidemia Mother Breast cancer Brother Cancer Sister Breast cancer Hyperlipidemia Sister Hyperlipidemia History Items: Cancer - in brother and sister Review of Systems Constitutional: Denies: Anorexia, Chills, Fever, Weakness, Weight Change Eyes: Denies: Blurred vision, Cataracts, Conjunctivae Inflammation, Double vision, Pain, Redness, Vision Change HEENT: Denies: Difficulty Hearing, Difficulty Swallowing, Head Aches, Hearing Changes, Sinus Congestion, Sinus Drainage Cardiovascular: Reports: Edema, Orthopnea. Denies: Chest Pain, Claudication, Palpitations Respiratory: Reports: Shortness of Breath, Shortness of breath at rest, Shortness of breath upon exertion. Denies: Cough, Sputum production Gastrointestinal: Denies: Abdominal Pain, Constipation, Hematemesis, Hematochezia, Nausea, Vomiting Genitourinary: Denies: Dysuria Gynecological: Denies: Breast symptoms, Excessively long or heavy periods Musculoskeletal: Denies: Joint Pain, Joint stiffness, Joint swelling, Joint Tenderness Skin: Denies: Rash, Wounds Neurological: Denies: Difficulty swallowing, Focal weakness, Numbness, Tingling Psychiatric: Denies: Anxiety, Depression, Homicidal Ideations, Suicidal Ideations Hematologic/ Lymphatic: Denies: Easy Bruising, Easy Bleeding VTE Information - Inpt Only VTE Present on Admission: No VTE Pharm Prophylaxis ordered?: Yes Patient Problems: Active and Suspected Problems (Last Reviewed 12/11/18 @ 11:55 by Beto Dennis MD) Respiratory failure (Acute) - Physical Exam General: Alert, Oriented x3, Cooperative, - - in moderate respiratory distress, on Bipap HEENT: Atraumatic, PERRLA, EOMI, Normocephalic Oral: Dry Mucosa Neck: Supple Lungs: Diminished Cardiovascular: Regular rate, Regular Rhythm, Normal S1, Normal S2, No murmurs Abdomen: Bowel Sounds Present, Soft, Non Tender, Non-Distended, No Hepato- splenomegaly Extremities: Edema - Bilateral leg edema with chronic venous stasis dermatitis, chronic ulcers Skin: - - chronic right great toe ulcer, left foot ulcer Lymphatic: No Cervical, Supraclavicular, or Inguinal Adenopathy Neurological: Cranial nerves II-XII grossly intact Psych/Mental Status: Normal Affect, Appropriate Vital Signs Temp Pulse Resp BP Pulse Ox 99.0 F 78 20 H 171/58 H 98 01/10/19 17:09 01/10/19 18:03 01/10/19 18:03 01/10/19 18:03 01/10/19 18:03 Oxygen Delivery Method Bi-pap Weight: 86.9 kg Body Mass Index (BMI) 33.9 Finger Stick Blood Glucose 257 Laboratory Tests Past 24 Hrs 01/10/19 01/10/19 01/10/19 17:15 17:15 17:15 WBC 18.3 H RBC 4.75 Hgb 11.9 L Hct 38.1 MCV 80.2 L MCH 25.1 L MCHC 31.2 L RDW 16.6 H RDW Differential 47.7 H Plt Count 209 MPV 11.0 Immature Gran % (Auto) 0.400 Neut % (Auto) 82.9 H Lymph % (Auto) 5.9 L [place] % (Auto) 3.8 Eos % (Auto) 6.9 H Baso % (Auto) 0.1 Absolute Neuts (auto) 15.1 H Absolute Lymphs (auto) 1.08 Total Counted Not Reportable Sodium 141 Potassium 4.2 Chloride 100 Carbon Dioxide 28.0 Anion Gap 13 BUN 37 H Creatinine 2.14 H Estim Creat Clear Calc 18.21 Est GFR (MDRD) Af Amer 29 L Est GFR (MDRD) Non-Af 24 L BUN/Creatinine Ratio 17.3 Glucose 283 H Calcium 8.5 Troponin I 0.020 B-Natriuretic Peptide 126.1 H Assessment/Plan All Active Problems (Last Reviewed 12/11/18 @ 11:55 by Beto Dennis MD) Ulcer of left lower extremity with fat layer exposed (Acute) Respiratory failure (Acute) Wheeze (Acute) Ischemic cerebrovascular accident (CVA) (Resolved) Subdural bleeding (Resolved) The patient is a 78 year old F with past medical history of mitral valve replacement with bioprosthetic valve, moderate to severe pulmonary hypertension, chronic diastolic CHF, paroxysmal atrial fibrillation, hypertension, type II DM, chronic venous stasis dermatitis with resultant bilateral leg ulcers who comes in with progressive shortness of breath ongoing for weeks worse over the last 1 to 2 days. 1. Acute hypoxic respiratory failure secondary to acute on chronic diastolic CHF, unlikely recent is currently on BiPAP, continue on BiPAP, breathing treatments, IV Lasix, wean off for SPO2 more than 92%, encourage incentive s pirometer. 2. Acute on chronic diastolic CHF, EF 65%/moderate to severe pulmonary hypertension secondary to dietary and fluid indiscretion, patient reports having gained 16 pounds of fluid Plan: Continue on IV Lasix twice daily, monitor renal function, strict I's and O's, daily weights 3. HERNAN on CKD secondary to acute on chronic diastolic CHF, possible componet of pulmo-renal disease, continue IV Lasix, repeat BMP, hold losartan for now, monitor vitals, and renal function worsens, consider nephrology consult 4. Moderate to severe pulmonary hypertension/status post mitral valve replacem ent/paroxysmal atrial fibrillation/hypertension Admitting INR is pending, continue on aspirin, warfarin, statin, amiodarone 5. Type 2 DM, poorly controlled, on insulin, continue same 6. Chronic venous leg ulcers, closed with the wound clinic, wound nurse consult 7. Hypothyroidism, on levothyroxine 8. DVT PPx- INR is pending, depending on INR results, may need to be continued on warfarin Code Visit Inpatient E&M: [id number] Init Hosp L3
[2019-01-10 19:35] LABS: International Normalized Ratio 2.6; Prothrombin Time (Protime)PT. 28.3 SECONDS (11.7-14.9)
[2019-01-10 20:06] LABS: Allen Test POS; Base Excess 1 mmol/L (-2 to +2); Bicarbonate 25.8 mmol/L (22-26); Blood Gas Specimen Type ART; EPAP 8; FI02 30; IPAP 16; PO2 112 mmHG (75-100); RR 12; SITE R Radial; SO2 98 % (95-99); Time Given 1953; Total Carbon Dioxide 27 mmol/L; pH 7.41 (7.35-7.45)
[2019-01-10] MEDS: Insulin Lispro 100 UNIT/ML INSULN.PEN SQ (21:32)
[2019-01-10] MEDS: Montelukast 10 MG Tablet PO (21:32)
[2019-01-10] MEDS: Aspirin E.C. 81 MG Tablet PO (21:33)
[2019-01-10 21:51] LABS: Bedside Glucose 302 mg/dL (70-110)
[2019-01-10] MEDS: Budesonide Respules 0.5 MG/2 ML AMPUL.NEB. INHALATION (22:16)
[2019-01-11] VITALS (14 sets, daily range): BP systolic 127–160; BP diastolic 59–78; PULSE 57–78; RESP 18–21; TEMP 36.2–36.9; O2SAT 96–98
[2019-01-11 06:05] LABS: Absolute Lymphocyte Count 0.53 X10^3/ul (0.83-4.51); Absolute Neutrophil Count 10.2 X10^3/uL (2.0-7.7); Basophil# 0.01 X10^3/uL; Basophil% 0.1 % (0-1); Eosinophil# 0.05 X10^3/uL; Eosinophils% 0.5 % (0-5); Hematocrit 35.6 % (37-47); Hemoglobin 11.3 g/dl (12.0-15.0); International Normalized Ratio 2.6; Lymphocyte # 0.53 X10^3/ul (4.0); Lymphocyte % 4.8 % (19-41); Mean Corp Hgb Conc 31.7 g/gl (32-36); Mean Corpuscular Hgb 25.4 pg (27.0-32.0); Mean Platelet Vol. 11.3 fl (6.2-12.0); Monocyte# 0.11 X10^3/uL; Neutrophil # 10.21 X10^3/uL (2.7-7.7); Neutrophil % 93.3 % (47-70); Platelet Count 152 K/mm3 (150-450); Prothrombin Time (Protime)PT. 27.5 SECONDS (11.7-14.9); RBC Distribution Width CV 16.5 % (11.6-14.6); RBC Distribution Width SD 46.8 fl (35.1-43.9); Red Blood Count 4.45 M/mm3 (4.2-5.4); White Blood Count 10.9 K/mm3 (4.4-11.0)
[2019-01-11 06:08] LABS: Differential Indicated SCAN CRITERIA MET; POSITIVE COUNT NO; POSITIVE DIFFERENTIAL YES; POSITIVE MORPHOLOGY NO
[2019-01-11 06:14] LABS: Anion Gap 11 (5-15); BUN 43 mg/dL (7-18); BUN/Creat Ratio 17.6 RATIO (10-20); Calcium,Total 8.1 mg/dL (8.5-10.1); Chloride 99 mmol/L (98-107); Creatinine, Serum 2.45 mg/dL (0.55-1.02); EST Glomerular Filtration Rate 20 mL/min (>60); Est Glom Filt Rate - Afr Amer 25 mL/min (>60); Estimated Creatinine Clearance 15.21 ml/min; Glucose 541 mg/dL (74-106); Potassium 4.7 mmol/L (3.5-5.1); Sodium Level 136 mmol/L (136-145)
[2019-01-11] MEDS: Levothyroxine 88 MCG Tablet PO (06:21)
[2019-01-11 06:45] LABS: Bedside Glucose > 500 mg/dL (70-110)
[2019-01-11 06:49] LABS: Differential Comment SCANNED
[2019-01-11] MEDS: Ipratropium/Albuterol Sulfate 3 ML AMPUL.NEB INHALATION ×3 (06:50→22:32)
[2019-01-11] MEDS: Budesonide Respules 0.5 MG/2 ML AMPUL.NEB. INHALATION (06:50)
[2019-01-11] MEDS: Insulin Lispro 100 UNIT/ML INSULN.PEN SQ ×3 (08:03→15:59)
[2019-01-11] MEDS: Insulin Lispro 100 UNIT/ML INSULN.PEN 15 UNIT SC (08:03)
[2019-01-11] MEDS: Multivitamins,Ther W-Minerals Tablet 1 TABLET PO (08:04)
[2019-01-11] MEDS: Calcitriol 0.25 MCG Capsule PO (08:05)
[2019-01-11] MEDS: Furosemide 40 MG/4 ML Vial IV (08:05)
[2019-01-11] MEDS: Amiodarone 200 MG Tablet 100 MG PO (08:06)
[2019-01-11 10:36] LABS: Bedside Glucose > 500 mg/dL (70-110)
--- NOTE | 2019-01-11 10:54 | CASEMGMT ---
Patient has as Healthcare POA and Healthcare LW on file at [facility]. [employer]
[2019-01-11 11:08] LABS: Glucose 540 mg/dL (74-106)
[2019-01-11] MEDS: Insulin Lispro 100 UNIT/ML INSULN.PEN 20 UNIT SC ×2 (11:41→15:58)
--- NOTE | 2019-01-11 11:48 | PCM.CONS.R ---
Consultation - Renal PCP/ Referring MD: Requesting physician: [] Primary care physician: Jovana Moulton - History of Present Illness History of Present Illness: The patient is a 78 year old F [] PMH of DHF, pulmonary HTN, COPD, CKD, DM. Pt presented to the hospital with complain of weight gain and SOB. Pt follows with cardiology clinic. Pt has been on lasix 40 mg PO BID She said she lost 4 pounds but still 16 pounds above her usual weight. Chest ray showed slight increase in interstitial markings Pt said her leg edema is better today lasix was increased to 80 mg IV BID today On NC ROS: 12 systems review is negative - Allergies Allergies: Allergies dronedarone [From Multaq] Allergy (Severe, Verified 01/10/19 17:08) difficulty breathing dronedarone HCl [From Multaq] Allergy (Verified 01/10/19 17:08) Other unable to breath levofloxacin [From Levaquin] Adverse Reaction (Severe, Verified 01/10/19 17:08) hallucinations, hot flashes quinapril [From Accupril] Adverse Reaction (Severe, Verified 01/10/19 17:08) near syncope cortisone Adverse Reaction (Intermediate, Verified 01/10/19 17:08) swelling hydralazine Adverse Reaction (Intermediate, Verified 01/10/19 17:08) weakness Beta-Blockers (Beta-Adrenergic Bloc Adverse Reaction (Verified 01/10/19 17:08) Other WHEEZING, shaking, passes out CARDURA Allergy (Uncoded 01/10/19 17:08) Other PT NOT SURE- POSSIBLE SWELLING NORVASC Allergy (Uncoded 01/10/19 17:08) Swelling SCALLOPS Allergy (Uncoded 01/10/19 17:08) Swelling SULFA Allergy (Uncoded 01/10/19 17:08) Other SPOTS IN MOUTH/SORE MOUTH ATIVAN Adverse Reaction (Uncoded 01/10/19 17:08) Other HALLUCINATIONS METATOPOLOL TARTATE Adverse Reaction (Uncoded 01/10/19 17:08) Other - Current Medications Current Medications: Current Medications Albuterol/Ipratropium (Duoneb) 3 ml INHALATION Q4HWA.RT [facility] Amiodarone HCl (Cordarone) 100 mg PO DAILY [facility] Last Admin: 01/11/19 08:06 Dose: 100 mg Aspirin (Ecotrin) 81 mg PO QHS [facility] Last Admin: 01/10/19 21:33 Dose: 81 mg Budesonide (Pulmicort Aerosol) 0.5 mg INHALATION Q12H.RT [facility] Last Admin: 01/11/19 06:50 Dose: 0.5 mg Calcitriol (Rocaltrol) 0.25 mcg PO MOWEFR [facility] Last Admin: 01/11/19 08:05 Dose: 0.25 mcg Dextrose (D50w Syringe) 0 gm IV X1 PRN; Protocol PRN Reason: Hypoglycemia Furosemide (Lasix) 80 mg IV BID@1000,1800 [facility] Glucagon () 1 mg IM .X1 PRN PRN Reason: Hypoglycemia Insulin Glargine (Lantus (Bkc)) 50 units SC DAILY [facility] Last Admin: 01/11/19 09:50 Dose: 50 u Insulin Human Lispro (Humalog Kwikpen (Bkc)) 20 unit SC TIDAC [facility] Last Admin: 01/11/19 11:41 Dose: 20 u Insulin Human Lispro (Humalog Kwikpen (Bkc)) 0 unit SQ ACHS [facility]; Protocol Last Admin: 01/11/19 11:42 Dose: 11 u Levothyroxine Sodium (Synthroid) 88 mcg PO DAILY@0600 [facility] Last Admin: 01/11/19 06:21 Dose: 88 mcg Montelukast Sodium (Singulair) 10 mg PO QPM [facility] Last Admin: 01/10/19 21:32 Dose: 10 mg Multivitamins/Minerals (Multivitamin With Minerals) 1 tablet PO DAILYCM [facility] Last Admin: 01/11/19 08:04 Dose: 1 tablet Warfarin Sodium (Coumadin (Pbkc)) 4 mg PO MoTu@1700 JOANNE; Protocol Warfarin Sodium (Coumadin (Pbkc)) 3 mg PO SuWeThFrSa@1700 JOANNE; Protocol - Past Medical History Past Medical History (Chronic Problems): Chronic Problems (Last Reviewed 12/11/18 @ 11:55 by Beto Dennis MD) Venous insufficiency of both lower extremities (Chronic) CHF exacerbation (Chronic) COPD exacerbation (Chronic) Chronic kidney disease (Chronic) Secondary pulmonary arterial hypertension (Chronic) Chronic diastolic (congestive) heart failure (Chronic) Essential (primary) hypertension (Chronic) Non-rheumatic mitral valve stenosis (Chronic) H/O coronary 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) CABG x 1 : SVG to distal LAD 09/29/2014 Atherosclerosis of coronary artery of [place] heart without angina pectoris (Chronic) CABG x 1 : SVG to distal LAD 09/29/2014 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 Angela Alexis History of mitral valve replacement with bioprosthetic valve (Chronic 09/29/14) 09/29/2014: MVR with 27 mm Medtronic tisue valve per Dr. Angela Alexis Hyperlipidemia (Chronic) - Past Surgical History Surgical History: angioplasty, cataract, hysterectomy, - - s/p maze procedure, s/p mitral replacement - Social History Smoking Status: Never smoker - Family History Maternal Family History: Family History (Last Reviewed 12/11/18 @ 11:55 by Beto Dennis MD) Father CAD (coronary artery disease) Hypertension Myocardial infarction Sudden cardiac Hyperlipidemia Mother Breast cancer Brother Cancer Sister Breast cancer Hyperlipidemia Sister Hyperlipidemia History Items: Cancer Paternal Family History: Family History (Last Reviewed 12/11/18 @ 11:55 by Beto Dennis MD) Father CAD (coronary artery disease) Hypertension Myocardial infarction Sudden cardiac Hyperlipidemia Mother Breast cancer Brother Cancer Sister Breast cancer Hyperlipidemia Sister Hyperlipidemia History Items: Heart Disease, Stroke Sibling Family History: Family History (Last Reviewed 12/11/18 @ 11:55 by Beto Dennis MD) Father CAD (coronary artery disease) Hypertension Myocardial infarction Sudden cardiac Hyperlipidemia Mother Breast cancer Brother Cancer Sister Breast cancer Hyperlipidemia Sister Hyperlipidemia History Items: Cancer - in brother and sister Patient Problems: Active and Suspected Problems (Last Reviewed 12/11/18 @ 11:55 by Beto Dennis MD) Respiratory failure (Acute) - Physical Exam General: Alert, Oriented x3 HEENT: Atraumatic Oral: Moist Mucosa Neck: Supple, No JVD Lungs: Clear to auscultation, Normal air movement, No rhonchi, No wheeze Cardiovascular: Regular rate, Regular Rhythm, Normal S1, Normal S2 Abdomen: Bowel Sounds Present, Soft, Non Tender Extremities: No clubbing, No cyanosis, Edema - trace edema of LE Skin: No rashes Lymphatic: No Cervical, Supraclavicular, or Inguinal Adenopathy Neurological: Cranial nerves II-XII grossly intact, Neuro grossly intact Psych/Mental Status: Normal Affect Vital Signs Temp Pulse Resp BP Pulse Ox 98.4 F 59 L 20 H 137/64 H 97 01/11/19 08:30 01/11/19 08:30 01/11/19 08:30 01/11/19 08:30 01/11/19 08:30 Oxygen Flow Rate (L/min) 2 Oxygen Delivery Method Nasal Cannula Weight: 87 kg Body Mass Index (BMI) 33.5 Finger Stick Blood Glucose 257 Intake and Output for Last 24 Hours 01/09/19 01/10/19 01/11/19 23:59 23:59 23:59 Intake Total 1080 / 1080 Output Total 400 / 400 Balance 680 / 680 Laboratory Tests Past 24 Hrs 01/10/19 01/10/19 01/10/19 17:15 17:15 17:15 WBC 18.3 H RBC 4.75 Hgb 11.9 L Hct 38.1 MCV 80.2 L MCH 25.1 L MCHC 31.2 L RDW 16.6 H RDW Differential 47.7 H Plt Count 209 MPV 11.0 Immature Gran % (Auto) 0.400 Neut % (Auto) 82.9 H Lymph % (Auto) 5.9 L [place] % (Auto) 3.8 Eos % (Auto) 6.9 H Baso % (Auto) 0.1 Absolute Neuts (auto) 15.1 H Absolute Lymphs (auto) 1.08 Total Counted Not Reportable Differential Comment PT INR Specimen Type Sample Site pH Bicarbonate Actual POC Total CO2 Base Excess O2 Saturation O2 % ABG pCO2 ABG pO2 Kaveh Test Respiration Rate O2 Delivery Device EPAP IPAP Blood Gas Notified Whom Blood Gas Notified Time Sodium 141 Potassium 4.2 Chloride 100 Carbon Dioxide 28.0 Anion Gap 13 BUN 37 H Creatinine 2.14 H Estim Creat Clear Calc 18.21 Est GFR (MDRD) Af Amer 29 L Est GFR (MDRD) Non-Af 24 L BUN/Creatinine Ratio 17.3 Glucose 283 H Calcium 8.5 Troponin I 0.020 B-Natriuretic Peptide 126.1 H 01/10/19 01/10/19 01/11/19 17:15 20:01 05:26 WBC 10.9 RBC 4.45 Hgb 11.3 L Hct 35.6 L MCV 80.0 L MCH 25.4 L MCHC 31.7 L RDW 16.5 H RDW Differential 46.8 H Plt Count 152 MPV 11.3 Immature Gran % (Auto) 0.300 Neut % (Auto) 93.3 H Lymph % (Auto) 4.8 L [place] % (Auto) 1.0 Eos % (Auto) 0.5 Baso % (Auto) 0.1 Absolute Neuts (auto) 10.2 H Absolute Lymphs (auto) 0.53 L Total Counted Not Reportable Differential Comment SCANNED PT 28.3 H INR 2.6 Specimen Type ART Sample Site R Radial pH 7.41 Bicarbonate Actual 25.8 POC Total CO2 27 Base Excess 1 O2 Saturation 98 O2 % 30 ABG pCO2 41.0 ABG pO2 112 H Kaveh Test POS Respiration Rate 12 O2 Delivery Device Bi / C PAP EPAP 8 IPAP 16 Blood Gas Notified Whom [facility] Blood Gas Notified Time 1952 Sodium Potassium Chloride Carbon Dioxide Anion Gap BUN Creatinine Estim Creat Clear Calc Est GFR (MDRD) Af Amer Est GFR (MDRD) Non-Af BUN/Creatinine Ratio Glucose Calcium Troponin I B-Natriuretic Peptide 01/11/19 01/11/19 01/11/19 05:26 05:26 10:45 WBC RBC Hgb Hct MCV MCH MCHC RDW RDW Differential Plt Count MPV Immature Gran % (Auto) Neut % (Auto) Lymph % (Auto) [place] % (Auto) Eos % (Auto) Baso % (Auto) Absolute Neuts (auto) Absolute Lymphs (auto) Total Counted Differential Comment PT 27.5 H INR 2.6 Specimen Type Sample Site pH Bicarbonate Actual POC Total CO2 Base Excess O2 Saturation O2 % ABG pCO2 ABG pO2 Kaveh Test Respiration Rate O2 Delivery Device EPAP IPAP Blood Gas Notified Whom Blood Gas Notified Time Sodium 136 Potassium 4.7 Chloride 99 Carbon Dioxide 26.0 Anion Gap 11 BUN 43 H Creatinine 2.45 H Estim Creat Clear Calc 15.21 Est GFR (MDRD) Af Amer 25 L Est GFR (MDRD) Non-Af 20 L BUN/Creatinine Ratio 17.6 Glucose 541 H* 540 H* Calcium 8.1 L Troponin I B-Natriuretic Peptide POC Glucose 01/11/19 01/11/19 01/10/19 10:30 06:36 21:31 POC Glucose > 500 H* > 500 H* 302 H Assessment/Plan All Active Problems (Last Reviewed 12/11/18 @ 11:55 by Beto Dennis MD) Ulcer of left lower extremity with fat layer exposed (Acute) Respiratory failure (Acute) Wheeze (Acute) Ischemic cerebrovascular accident (CVA) (Resolved) Subdural bleeding (Resolved) 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 from CRS and DNP Cr is at baseline Ok to increase lasix to 80 BID. 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 ok with lasix 80 IV BID low sodium diet of 2000 mg PO daily fluid restriction of 45 oz daily Renal team will continue to follow Thank you for the consult call if any question at [phone] Magdy Flores MD
--- NOTE | 2019-01-11 11:55 | CON.PCM_ITS ---
Consultation - Renal PCP/ Referring MD: Requesting physician: [] Primary care physician: Jovana Moulton - History of Present Illness History of Present Illness: The patient is a 78 year old F [] PMH of DHF, pulmonary HTN, COPD, CKD, DM. Pt presented to the hospital with complain of weight gain and SOB. Pt follows with cardiology clinic. Pt has been on lasix 40 mg PO BID She said she lost 4 pounds but still 16 pounds above her usual weight. Chest ray showed slight increase in interstitial markings Pt said her leg edema is better today lasix was increased to 80 mg IV BID today On NC ROS: 12 systems review is negative - Allergies Allergies: Allergies dronedarone [From Multaq] Allergy (Severe, Verified 01/10/19 17:08) difficulty breathing dronedarone HCl [From Multaq] Allergy (Verified 01/10/19 17:08) Other unable to breath levofloxacin [From Levaquin] Adverse Reaction (Severe, Verified 01/10/19 17:08) hallucinations, hot flashes quinapril [From Accupril] Adverse Reaction (Severe, Verified 01/10/19 17:08) near syncope cortisone Adverse Reaction (Intermediate, Verified 01/10/19 17:08) swelling hydralazine Adverse Reaction (Intermediate, Verified 01/10/19 17:08) weakness Beta-Blockers (Beta-Adrenergic Bloc Adverse Reaction (Verified 01/10/19 17:08) Other WHEEZING, shaking, passes out CARDURA Allergy (Uncoded 01/10/19 17:08) Other PT NOT SURE- POSSIBLE SWELLING NORVASC Allergy (Uncoded 01/10/19 17:08) Swelling SCALLOPS Allergy (Uncoded 01/10/19 17:08) Swelling SULFA Allergy (Uncoded 01/10/19 17:08) Other SPOTS IN MOUTH/SORE MOUTH ATIVAN Adverse Reaction (Uncoded 01/10/19 17:08) Other HALLUCINATIONS METATOPOLOL TARTATE Adverse Reaction (Uncoded 01/10/19 17:08) Other - Current Medications Current Medications: Current Medications Albuterol/Ipratropium (Duoneb) 3 ml INHALATION Q4HWA.RT [facility] Amiodarone HCl (Cordarone) 100 mg PO DAILY [facility] Last Admin: 01/11/19 08:06 Dose: 100 mg Aspirin (Ecotrin) 81 mg PO QHS [facility] Last Admin: 01/10/19 21:33 Dose: 81 mg Budesonide (Pulmicort Aerosol) 0.5 mg INHALATION Q12H.RT [facility] Last Admin: 01/11/19 06:50 Dose: 0.5 mg Calcitriol (Rocaltrol) 0.25 mcg PO MOWEFR [facility] Last Admin: 01/11/19 08:05 Dose: 0.25 mcg Dextrose (D50w Syringe) 0 gm IV X1 PRN; Protocol PRN Reason: Hypoglycemia Furosemide (Lasix) 80 mg IV BID@1000,1800 [facility] Glucagon () 1 mg IM .X1 PRN PRN Reason: Hypoglycemia Insulin Glargine (Lantus (Bkc)) 50 units SC DAILY [facility] Last Admin: 01/11/19 09:50 Dose: 50 u Insulin Human Lispro (Humalog Kwikpen (Bkc)) 20 unit SC TIDAC [facility] Last Admin: 01/11/19 11:41 Dose: 20 u Insulin Human Lispro (Humalog Kwikpen (Bkc)) 0 unit SQ ACHS [facility]; Protocol Last Admin: 01/11/19 11:42 Dose: 11 u Levothyroxine Sodium (Synthroid) 88 mcg PO DAILY@0600 [facility] Last Admin: 01/11/19 06:21 Dose: 88 mcg Montelukast Sodium (Singulair) 10 mg PO QPM [facility] Last Admin: 01/10/19 21:32 Dose: 10 mg Multivitamins/Minerals (Multivitamin With Minerals) 1 tablet PO DAILYCM [facility] Last Admin: 01/11/19 08:04 Dose: 1 tablet Warfarin Sodium (Coumadin (Pbkc)) 4 mg PO MoTu@1700 JOANNE; Protocol Warfarin Sodium (Coumadin (Pbkc)) 3 mg PO SuWeThFrSa@1700 JOANNE; Protocol - Past Medical History Past Medical History (Chronic Problems): Chronic Problems (Last Reviewed 12/11/18 @ 11:55 by Beto Dennis MD) Venous insufficiency of both lower extremities (Chronic) CHF exacerbation (Chronic) COPD exacerbation (Chronic) Chronic kidney disease (Chronic) Secondary pulmonary arterial hypertension (Chronic) Chronic diastolic (congestive) heart failure (Chronic) Essential (primary) hypertension (Chronic) Non-rheumatic mitral valve stenosis (Chronic) H/O coronary 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) CABG x 1 : SVG to distal LAD 09/29/2014 Atherosclerosis of coronary artery of [place] heart without angina pectoris (Chronic) CABG x 1 : SVG to distal LAD 09/29/2014 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 Angela Alexis History of mitral valve replacement with bioprosthetic valve (Chronic 09/29/14) 09/29/2014: MVR with 27 mm Medtronic tisue valve per Dr. Angela Alexis Hyperlipidemia (Chronic) - Past Surgical History Surgical History: angioplasty, cataract, hysterectomy, - - s/p maze procedure, s/p mitral replacement - Social History Smoking Status: Never smoker - Family History Maternal Family History: Family History (Last Reviewed 12/11/18 @ 11:55 by Beto Dennis MD) Father CAD (coronary artery disease) Hypertension Myocardial infarction Sudden cardiac Hyperlipidemia Mother Breast cancer Brother Cancer Sister Breast cancer Hyperlipidemia Sister Hyperlipidemia History Items: Cancer Paternal Family History: Family History (Last Reviewed 12/11/18 @ 11:55 by Beto Dennis MD) Father CAD (coronary artery disease) Hypertension Myocardial infarction Sudden cardiac Hyperlipidemia Mother Breast cancer Brother Cancer Sister Breast cancer Hyperlipidemia Sister Hyperlipidemia History Items: Heart Disease, Stroke Sibling Family History: Family History (Last Reviewed 12/11/18 @ 11:55 by Beto Dennis MD) Father CAD (coronary artery disease) Hypertension Myocardial infarction Sudden cardiac Hyperlipidemia Mother Breast cancer Brother Cancer Sister Breast cancer Hyperlipidemia Sister Hyperlipidemia History Items: Cancer - in brother and sister Patient Problems: Active and Suspected Problems (Last Reviewed 12/11/18 @ 11:55 by Beto Dennis MD) Respiratory failure (Acute) - Physical Exam General: Alert, Oriented x3 HEENT: Atraumatic Oral: Moist Mucosa Neck: Supple, No JVD Lungs: Clear to auscultation, Normal air movement, No rhonchi, No wheeze Cardiovascular: Regular rate, Regular Rhythm, Normal S1, Normal S2 Abdomen: Bowel Sounds Present, Soft, Non Tender Extremities: No clubbing, No cyanosis, Edema - trace edema of LE Skin: No rashes Lymphatic: No Cervical, Supraclavicular, or Inguinal Adenopathy Neurological: Cranial nerves II-XII grossly intact, Neuro grossly intact Psych/Mental Status: Normal Affect Vital Signs Temp Pulse Resp BP Pulse Ox 98.4 F 59 L 20 H 137/64 H 97 01/11/19 08:30 01/11/19 08:30 01/11/19 08:30 01/11/19 08:30 01/11/19 08:30 Oxygen Flow Rate (L/min) 2 Oxygen Delivery Method Nasal Cannula Weight: 87 kg Body Mass Index (BMI) 33.5 Finger Stick Blood Glucose 257 Intake and Output for Last 24 Hours 01/09/19 01/10/19 01/11/19 23:59 23:59 23:59 Intake Total 1080 / 1080 Output Total 400 / 400 Balance 680 / 680 Laboratory Tests Past 24 Hrs 01/10/19 01/10/19 01/10/19 17:15 17:15 17:15 WBC 18.3 H RBC 4.75 Hgb 11.9 L Hct 38.1 MCV 80.2 L MCH 25.1 L MCHC 31.2 L RDW 16.6 H RDW Differential 47.7 H Plt Count 209 MPV 11.0 Immature Gran % (Auto) 0.400 Neut % (Auto) 82.9 H Lymph % (Auto) 5.9 L [place] % (Auto) 3.8 Eos % (Auto) 6.9 H Baso % (Auto) 0.1 Absolute Neuts (auto) 15.1 H Absolute Lymphs (auto) 1.08 Total Counted Not Reportable Differential Comment PT INR Specimen Type Sample Site pH Bicarbonate Actual POC Total CO2 Base Excess O2 Saturation O2 % ABG pCO2 ABG pO2 Kaveh Test Respiration Rate O2 Delivery Device EPAP IPAP Blood Gas Notified Whom Blood Gas Notified Time Sodium 141 Potassium 4.2 Chloride 100 Carbon Dioxide 28.0 Anion Gap 13 BUN 37 H Creatinine 2.14 H Estim Creat Clear Calc 18.21 Est GFR (MDRD) Af Amer 29 L Est GFR (MDRD) Non-Af 24 L BUN/Creatinine Ratio 17.3 Glucose 283 H Calcium 8.5 Troponin I 0.020 B-Natriuretic Peptide 126.1 H 01/10/19 01/10/19 01/11/19 17:15 20:01 05:26 WBC 10.9 RBC 4.45 Hgb 11.3 L Hct 35.6 L MCV 80.0 L MCH 25.4 L MCHC 31.7 L RDW 16.5 H RDW Differential 46.8 H Plt Count 152 MPV 11.3 Immature Gran % (Auto) 0.300 Neut % (Auto) 93.3 H Lymph % (Auto) 4.8 L [place] % (Auto) 1.0 Eos % (Auto) 0.5 Baso % (Auto) 0.1 Absolute Neuts (auto) 10.2 H Absolute Lymphs (auto) 0.53 L Total Counted Not Reportable Differential Comment SCANNED PT 28.3 H INR 2.6 Specimen Type ART Sample Site R Radial pH 7.41 Bicarbonate Actual 25.8 POC Total CO2 27 Base Excess 1 O2 Saturation 98 O2 % 30 ABG pCO2 41.0 ABG pO2 112 H Kaveh Test POS Respiration Rate 12 O2 Delivery Device Bi / C PAP EPAP 8 IPAP 16 Blood Gas Notified Whom [facility] Blood Gas Notified Time 1952 Sodium Potassium Chloride Carbon Dioxide Anion Gap BUN Creatinine Estim Creat Clear Calc Est GFR (MDRD) Af Amer Est GFR (MDRD) Non-Af BUN/Creatinine Ratio Glucose Calcium Troponin I B-Natriuretic Peptide 01/11/19 01/11/19 01/11/19 05:26 05:26 10:45 WBC RBC Hgb Hct MCV MCH MCHC RDW RDW Differential Plt Count MPV Immature Gran % (Auto) Neut % (Auto) Lymph % (Auto) [place] % (Auto) Eos % (Auto) Baso % (Auto) Absolute Neuts (auto) Absolute Lymphs (auto) Total Counted Differential Comment PT 27.5 H INR 2.6 Specimen Type Sample Site pH Bicarbonate Actual POC Total CO2 Base Excess O2 Saturation O2 % ABG pCO2 ABG pO2 Kaveh Test Respiration Rate O2 Delivery Device EPAP IPAP Blood Gas Notified Whom Blood Gas Notified Time Sodium 136 Potassium 4.7 Chloride 99 Carbon Dioxide 26.0 Anion Gap 11 BUN 43 H Creatinine 2.45 H Estim Creat Clear Calc 15.21 Est GFR (MDRD) Af Amer 25 L Est GFR (MDRD) Non-Af 20 L BUN/Creatinine Ratio 17.6 Glucose 541 H* 540 H* Calcium 8.1 L Troponin I B-Natriuretic Peptide POC Glucose 01/11/19 01/11/19 01/10/19 10:30 06:36 21:31 POC Glucose > 500 H* > 500 H* 302 H Assessment/Plan All Active Problems (Last Reviewed 12/11/18 @ 11:55 by Beto Dennis MD) Ulcer of left lower extremity with fat layer exposed (Acute) Respiratory failure (Acute) Wheeze (Acute) Ischemic cerebrovascular accident (CVA) (Resolved) Subdural bleeding (Resolved) 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 from CRS and DNP Cr is at baseline Ok to increase lasix to 80 BID. Will monitor kidney function Avoid ACEI/ARB No need for ACADEMIC PHYSICIAN 2- HTN: BP is well controlled continue same BP meds Avoid ACEI/ARN 3- edema : better . ok with lasix 80 IV BID low sodium diet of 2000 mg PO daily fluid restriction of 45 oz daily Renal team will continue to follow Thank you for the consult call if any question at [phone] Magdy Flores MD
--- NOTE | 2019-01-11 11:59 | CASEMGMT ---
LINDSEY MONTEOJ SCREEDMAN/LABORER CM to room to meet with patient for initial transition planning/care coordination assessment. LINDSEY MONTEJO introduced self and role at [facility]. Pt voices understanding and consents to assessment at this time. Pt resting in bed in no distress at this time. Pt is A/O at this time and answers all questions appropriately. Care providers, pharmacy, and demographics verified/updated at this time. PCP: Fred Specialists: Jeannie--cardiology, Baljit--pulmonology: Has Appt Friday01/15/19 @ 11:15, Dr Ulloa--nephrology. Pt states would like to switch to a different helper animal laboratory and states would like a list of local helper animal laboratory names/contact numbers. Same provided. Pt voices appreciation. Goes to the [facility]ound clinic weekly. changes drsgs to bilat lower legs daily. Preferred Pharmacy: [facility] [place] Insurance: [employer] [facility] Prescription Benefit: Yes Living Will/HPOA: Has both LW and HCPOA. , Chris, is her HCPOA. LNOK: Chris, sister, [id number]: Claudia Living Arrangements: Lives in one-story home w/3 steps to enter through the garage w/handles on both sides. States is independent w/ADL's @ home. States only showers while her is home. is able to assist if needed. Transportation: usually provides transportation. Sister or [id number] also can assist with transportation. will drive home @ discharge. DME: Pt states has the following DME: cane, walker, shower chair, grab bars, cpap, nebulizer, medical alert button and home oxygen 2 liters thru [facility]. Pt states has concentrator and larger portable tank. She states she usually only wears the oxygen @ HS. States if she requires oxygen @ discharge for the travel home, that her can bring in the portable tank. States has considered getting a W/C in the past for when going longer distances. Pt made aware if she decides in the future she wants a W/C, to talk to her PCP about getting this. Pt voices understanding. Call placed to [facility] and they state current orders are for O2 @ 2L/M continuously. They state pt has cancelled evals to receive smaller portable tanks but they can set up for another eval for smaller tanks if pt would prefer. Pt made aware. HHC/SNF: Pt states has had [facility] HHC in the past and currently has mobile lab to come draw her PT/INR for coumadin when it's needed. Pt states no hx of SNF in the past. Pt states she is not interested in HHC at this time but states she may want to go for Out-pt therapy but does not want this set up at this time. Will obtain script for Out-pt therapy and give to pt so she can set up/make appt in the future if she decides to do so. Pt states no concerns with going home at time of discharge. Pt states is retired. Pt states does not smoke or drink ETOH. Pt states no further concerns/needs at this time. Advised pt to ask for CM if any further questions/concerns/needs arise, voices understanding. PLAN: Home w/spousal support and discharge plans in place. Kacy BECKFORD RN CM
--- NOTE | 2019-01-11 12:11 | NURSING ---
wound photo: right great toe (plantar surface)
--- NOTE | 2019-01-11 12:12 | NURSING ---
wound photo: left dorsal foot
--- NOTE | 2019-01-11 15:58 | CHAPLAIN ---
cristian mac; pt had a student working with her and pt asked if this mental health aide could come back another day
[2019-01-11 16:01] LABS: Bedside Glucose 354 mg/dL (70-110)
--- NOTE | 2019-01-11 16:09 | PCM.PN.HOSP ---
Patient Problems: Active and Suspected Problems (Last Reviewed 12/11/18 @ 11:55 by Beto Leonardo MD) Respiratory failure (Acute) Subjective: Patient leg edema and shortness of breath has improved after starting Lasix 40 g IV twice daily but is still 16 pounds above her baseline weight. Patient has interstitial lung markings slightly increased; probably fluid congestion. Patient follows Dr. Ulloa but wants to change to [place] solderer barrel ribs. She states she is not happy with Dr. Ulloa. Patient follows Dr. leonardo and had appointment with Danna, cardiology clinic nurse practitioner today. Vitals/I&O's: Vital Signs Temp Pulse Resp BP Pulse Ox 98.4 F 59 L 21 H 137/64 H 97 01/11/19 08:30 01/11/19 08:30 01/11/19 13:30 01/11/19 08:30 01/11/19 08:30 Oxygen Flow Rate (L/min) 2 Oxygen Delivery Method Nasal Cannula Weight: 191 lb 12.835 oz Body Mass Index (BMI) 33.5 Finger Stick Blood Glucose 257 Intake and Output for Last 24 Hours 01/09/19 01/10/19 01/11/19 23:59 23:59 23:59 Intake Total 1080 / 1080 Output Total 400 / 400 Balance 680 / 680 General: Alert, Oriented x3, Cooperative HEENT: Atraumatic, PERRLA, EOMI, Normocephalic Neck: Supple, No JVD, Negative Carotid Bruits Lungs: Clear to auscultation, No rhonchi, No wheeze, No rales, Diminished Cardiovascular: Regular rate, Regular Rhythm, Normal S1, Normal S2, No murmurs Abdomen: Bowel Sounds Present, Soft, Non Tender, Non-Distended Extremities: Capillary Refill Less than 3 Seconds, Edema Skin: No rashes, No breakdown Musculoskeletal: No Tenderness to Palpation of Joints or Extremities Lymphatic: No Cervical, Supraclavicular, or Inguinal Adenopathy Neurological: Cranial nerves II-XII grossly intact, Deep Tendon Reflexes 2+/4 and Symmetrical, Neuro grossly intact Psych/Mental Status: Normal Affect, Appropriate Laboratory Results 01/10/19 17:15: WBC 18.3 H, RBC 4.75, Hgb 11.9 L, Hct 38.1, MCV 80.2 L, MCH 25.1 L, MCHC 31.2 L, RDW 16.6 H, RDW Differential 47.7 H, Plt Count 209, MPV 11.0, Immature Gran % (Auto) 0.400, Neut % (Auto) 82.9 H, Lymph % (Auto) 5.9 L, [place] % (Auto) 3.8, Eos % (Auto) 6.9 H, Baso % (Auto) 0.1, Absolute Neuts (auto) 15.1 H, Absolute Lymphs (auto) 1.08, Total Counted Not Reportable 01/10/19 17:15: Sodium 141, Potassium 4.2, Chloride 100, Carbon Dioxide 28.0, Anion Gap 13, BUN 37 H, Creatinine 2.14 H, Estim Creat Clear Calc 18.21, Est GFR (MDRD) Af Amer 29 L, Est GFR (MDRD) Non-Af 24 L, BUN/Creatinine Ratio 17.3, Glucose 283 H, Calcium 8.5, Troponin I 0.020 01/10/19 17:15: B-Natriuretic Peptide 126.1 H 01/10/19 17:15: PT 28.3 H, INR 2.6 01/10/19 20:01: Specimen Type ART, Sample Site R Radial, pH 7.41, Bicarbonate Actual 25.8, POC Total CO2 27, Base Excess 1, O2 Saturation 98, O2 % 30, ABG pCO2 41.0, ABG pO2 112 H, Kaveh Test POS, Respiration Rate 12, O2 Delivery Device Bi / C PAP, EPAP 8, IPAP 16, Blood Gas Notified Whom [facility] , Blood Gas Notified Time 195201/10/19 21:31: POC Glucose 302 H 01/11/19 05:26: WBC 10.9, RBC 4.45, Hgb 11.3 L, Hct 35.6 L, MCV 80.0 L, MCH 25.4 L, MCHC 31.7 L, RDW 16.5 H, RDW Differential 46.8 H, Plt Count 152, MPV 11.3, Immature Gran % (Auto) 0.300, Neut % (Auto) 93.3 H, Lymph % (Auto) 4.8 L, [place] % (Auto) 1.0, Eos % (Auto) 0.5, Baso % (Auto) 0.1, Absolute Neuts (auto) 10.2 H, Absolute Lymphs (auto) 0.53 L, Total Counted Not Reportable, Differential Comment SCANNED 01/11/19 05:26: PT 27.5 H, INR 2.6 01/11/19 05:26: Sodium 136, Potassium 4.7, Chloride 99, Carbon Dioxide 26.0, Anion Gap 11, BUN 43 H, Creatinine 2.45 H, Estim Creat Clear Calc 15.21, Est GFR (MDRD) Af Amer 25 L, Est GFR (MDRD) Non-Af 20 L, BUN/Creatinine Ratio 17.6, Glucose 541 H*, Calcium 8.1 L 01/11/19 06:36: POC Glucose > 500 H* 01/11/19 10:30: POC Glucose > 500 H* 01/11/19 10:45: Glucose 540 H* 01/11/19 15:55: POC Glucose 354 H Current Medications Albuterol/Ipratropium (Duoneb) 3 ml INHALATION Q4HWA.RT [facility] Last Admin: 01/11/19 13:30 Dose: 3 ml Amiodarone HCl (Cordarone) 100 mg PO DAILY [facility] Last Admin: 01/11/19 08:06 Dose: 100 mg Aspirin (Ecotrin) 81 mg PO QHS JOANNE Last Admin: 01/10/19 21:33 Dose: 81 mg Budesonide (Pulmicort Aerosol) 0.5 mg INHALATION Q12H.RT [facility] Last Admin: 01/11/19 06:50 Dose: 0.5 mg Calcitriol (Rocaltrol) 0.25 mcg PO MOWEFR [facility] Last Admin: 01/11/19 08:05 Dose: 0.25 mcg Dextrose (D50w Syringe) 0 gm IV X1 PRN; Protocol PRN Reason: Hypoglycemia Furosemide (Lasix) 80 mg IV BID@1000,1800 JOANNE Glucagon () 1 mg IM .X1 PRN PRN Reason: Hypoglycemia Insulin Glargine (Lantus (Bkc)) 50 units SC DAILY [facility] Last Admin: 01/11/19 09:50 Dose: 50 u Insulin Human Lispro (Humalog Kwikpen (Bkc)) 20 unit SC TIDAC [facility] Last Admin: 01/11/19 15:58 Dose: 20 u Insulin Human Lispro (Humalog Kwikpen (Bkc)) 0 unit SQ ACHS JOANNE; Protocol Last Admin: 01/11/19 15:59 Dose: 8 u Levothyroxine Sodium (Synthroid) 88 mcg PO DAILY@0600 [facility] Last Admin: 01/11/19 06:21 Dose: 88 mcg Montelukast Sodium (Singulair) 10 mg PO QPM [facility] Last Admin: 01/10/19 21:32 Dose: 10 mg Multivitamins/Minerals (Multivitamin With Minerals) 1 tablet PO DAILYCM [facility] Last Admin: 01/11/19 08:04 Dose: 1 tablet Warfarin Sodium (Coumadin (Pbkc)) 4 mg PO MoTu@1700 [facility]; Protocol Last Admin: 01/11/19 16:00 Dose: 4 mg Warfarin Sodium (Coumadin (Pbkc)) 3 mg PO SuWeThFrSa@1700 JOANNE; Protocol Medical Necessity - Tobacco Use Smoking Status: Never smoker Assessment/Plan All Active Problems (Last Reviewed 12/11/18 @ 11:55 by Beto Leonardo MD) Ulcer of left lower extremity with fat layer exposed (Acute) Respiratory failure (Acute) Wheeze (Acute) Ischemic cerebrovascular accident (CVA) (Resolved) Subdural bleeding (Resolved) The patient is a 78 year old F with past medical history of mitral valve replacement with bioprosthetic valve, moderate to severe pulmonary hypertension, chronic diastolic CHF, paroxysmal atrial fibrillation, hypertension, type II DM, chronic venous stasis dermatitis with resultant bilateral leg ulcers who comes in with progressive shortness of breath ongoing for weeks worse over the last 1 to 2 days. 1. Acute hypoxic respiratory failure secondary to acute on chronic diastolic CHF, unlikely recent is currently on BiPAP, continue on BiPAP, breathing treatments, IV Lasix, wean off for SPO2 more than 92%, encourage incentive spirometer. 2. Acute on chronic diastolic CHF, with severe pulmonary hypertension: Patient had echo in May 2018 and reported as EF 65% with normal LV systolic function. No regional wall motion abnormalities. Normal RV size and systolic function. Right atrium mildly enlarged. Left atrium mildly enlarged. Stable appearing bioprosthetic mitral valve apparatus. 1-2+ eccentric TR, RVSP 72 mmHg. Lasix increased to 80 mg IV twice daily and will titrate as per intake and output, fluid status and renal function. BNP 126. patient is short of breath mainly secondary to pulmonary hypertension. 3. HERNAN on CKD secondary to acute on chronic diastolic CHF, cardiorenal disease: Patient wants to change solderer barrel ribs from Dr. Ulloa to [facility]. Discussed with the [facility] solderer barrel ribs. Freight Brakeman agree with above plan. Monitor kidney function. 4. Moderate to severe pulmonary hypertension/status post mitral valve replacement/paroxysmal atrial fibrillation/hypertension continue on aspirin, warfarin, statin, amiodarone. INR therapeutic 2.6. 5. Type 2 DM, poorly controlled with hyperglycemia: Blood sugar has been critically high on Accu-Cheks more than 505 140 on BMP on 2 occasions. Lantus increased to 50 units subcutaneous daily. Humalog increased to 20 units subcu units 3 times daily and high-dose sliding scale. An extra dose of Lantus 20 units given. Seems critical hypoglycemia probably response to Solu-Medrol 125 mg IV given in ER. 6. Chronic venous leg ulcers, closed with the wound clinic, wound nurse consult 7. Hypothyroidism, on levothyroxine DVT prophylaxis: On Coumadin. Code Visit Inpatient E&M: 00379 [facility] H[facility] L3
[2019-01-11] MEDS: Furosemide 40 MG/4 ML Vial 80 MG IV (17:33)
[2019-01-11] MEDS: Aspirin E.C. 81 MG Tablet PO (21:07)
[2019-01-11] MEDS: Montelukast 10 MG Tablet PO (21:07)
[2019-01-11 21:25] LABS: Bedside Glucose 100 mg/dL (70-110)
[2019-01-12] VITALS (14 sets, daily range): BP systolic 118–161; BP diastolic 54–68; PULSE 51–68; RESP 16–22; TEMP 35.7–37; O2SAT 96–100
[2019-01-12] MEDS: 0.9% NaCl Peripheral Flush Adult/Peds IV ×3 (00:43→17:20)
[2019-01-12] MEDS: DiphenhydrAMINE 50 MG/ML Syringe 25 MG IV ×2 (00:44→08:58)
[2019-01-12 00:56] LABS: Bedside Glucose 131 mg/dL (70-110)
[2019-01-12] MEDS: Levothyroxine 88 MCG Tablet PO (05:57)
[2019-01-12 07:06] LABS: Bedside Glucose 220 mg/dL (70-110)
[2019-01-12] MEDS: Budesonide Respules 0.5 MG/2 ML AMPUL.NEB. INHALATION ×2 (07:37→19:21)
[2019-01-12] MEDS: Ipratropium/Albuterol Sulfate 3 ML AMPUL.NEB INHALATION ×4 (07:37→19:21)
--- NOTE | 2019-01-12 08:10 | RAD_ITS ---
STUDY: X-RAY CHEST REASON FOR EXAM: Female, 78 years old. Acute hypoxic respiratory failure. TECHNIQUE: Single AP portable view of the chest. COMPARISON: Comparison is made with prior study dated January 10, 2019. FINDINGS: EKG electrodes are seen. There is elevation of the right hemidiaphragm. Persistent increased markings at the left lung base with blunting of the left costophrenic angle. This may represent either atelectasis and/or early infiltrate. Sternal cerclage wires are present from a prior sternotomy. The patient is status post mitral valve replacement. Mild cardiomegaly. Normal mediastinum and jacki. Normal visualized pulmonary arteries. Normal visualized aortic arch and descending thoracic aorta. Normal visualized thoracic spine. Normal visualized ribs, clavicles, and shoulders. There is no demonstrated abnormality of the visualized soft tissue structures of the upper abdomen. RAD/Chest 1 View (Portable) IMPRESSION: Blunting of the left costophrenic angle with increased markings at the left lung base suggestive of atelectasis and/or early infiltrate. Electronically Signed: Pierre Hua, at 13:22 EDT , Service support ,
[2019-01-12 08:53] LABS: Anion Gap 8 (5-15); BUN 65 mg/dL (7-18); BUN/Creat Ratio 24.7 RATIO (10-20); Calcium,Total 8.2 mg/dL (8.5-10.1); Chloride 100 mmol/L (98-107); Creatinine, Serum 2.63 mg/dL (0.55-1.02); EST Glomerular Filtration Rate 19 mL/min (>60); Est Glom Filt Rate - Afr Amer 23 mL/min (>60); Estimated Creatinine Clearance 14.82 ml/min; Glucose 202 mg/dL (74-106); Sodium Level 136 mmol/L (136-145)
[2019-01-12] MEDS: Amiodarone 200 MG Tablet 100 MG PO (08:53)
[2019-01-12] MEDS: Multivitamins,Ther W-Minerals Tablet 1 TABLET PO (08:53)
[2019-01-12] MEDS: Insulin Lispro 100 UNIT/ML INSULN.PEN SQ ×2 (08:54→13:14)
[2019-01-12] MEDS: Furosemide 40 MG/4 ML Vial 80 MG IV (08:58)
[2019-01-12] MEDS: Insulin Lispro 100 UNIT/ML INSULN.PEN 20 UNIT SC ×3 (09:02→17:16)
--- NOTE | 2019-01-12 09:38 | CASEMGMT ---
LINDSEY MONTEJO NOTE: Script obtained from Dr Gomez for Out-pt PT/OT eval and treat. Script given to pt along with phone numbers to local Out-pt facilities. Pt instructed to contact the facility of her choice and explained they can determine financial information/[id number] costs with her and she can set up appts with them if she decides to do Out-pt therapy. Pt and who is in room with pt voice understanding and appreciation. Kacy BECKFORD RN CM
--- NOTE | 2019-01-12 10:14 | ECHOD_ITS ---
Reason For Study: CHF Procedure This was a 2D Doppler, Color Flow transthoracic echocardiogram. Technically difficult- pt sitting upright/supine for exam d/t SOB. The study was technically difficult. Exam performed portable in patient room. Left Ventricle Normal LV size. D shaped septum in systole and diastole. Mild concentric left ventricular hypertrophy. Left ventricular systolic function is normal. The estimated ejection fraction is 65 %. Unable to assess diastolic dysfunction. No regional wall motion abnormalities noted. Right Ventricle Mildly dilated right ventricle. Mild global right ventricular systolic dysfunction. Atria The left atrium is mildly enlarged. Normal right atrium. No doppler evidence for ASD. Mitral Valve The mitral papillary muscle appears thickened and/or calcified. Stable appearing bioprosthetic mitral valve apparatus. Trivial transvalvular insufficiency of the mitral valve. Tricuspid Valve Normal tricuspid valve. Mild to moderate (1-2+) tricuspid valve insufficiency. Right ventricular systolic pressure estimated to be 72 mmHg. Aortic Valve Trisinus/trileaflet aortic valve. Mild diffuse aortic valve calcification. Trivial aortic valve insufficiency. Pulmonic Valve The pulmonic valve is not well visualized. Mild-Moderate (1-2+) pulmonic valve insufficiency. Great Vessels Normal sized aortic root. Calcified aortic root. Pericardium/Pleural No pericardial effusion. MMode/2D Measurements & Calculations LVIDd: 3.6 cm IVSd: 1.4 cm Ao root diam: 3.2 cm LVIDs: 2.2 cm LVPWd: 1.3 cm RVDd: 3.7 cm FS: 38.5 % LAV(MOD-bp): 92.6 ml LA A4 area: 23.8 cm2 LA dimension(2D): 5.1 cm LAV(MOD-bp) Indexed: 48.6 ml/m2 LAV(MOD-sp2): 103.8 ml LAV(MOD-sp4): 80.4 ml RA A4 area: 20.6 cm2 Doppler Measurements & Calculations MV E max becky: 225.1 cm/sec MV V2 max: 237.0 cm/sec Ao V2 max: 197.8 cm/sec MV max P.5 mmHg Ao max P.7 mmHg MV V2 mean: 98.0 cm/sec MV mean P.4 mmHg MV V2 VTI: 59.5 cm LV V1 max: 90.1 cm/sec PA V2 max: 89.6 cm/sec PI end-d becky: 160.6 cm/sec LV V1 max P.2 mmHg TR max becky: 403.9 cm/sec TR max P.3 mmHg Interpretation Summary The study was technically difficult. Left ventricular systolic function is normal. The estimated ejection fraction is 65 %. D shaped septum in systole and diastole. Mild concentric left ventricular hypertrophy. Mildly dilated right ventricle. Mild global right ventricular systolic dysfunction. The left atrium is mildly enlarged. Stable appearing bioprosthetic mitral valve apparatus. Trivial transvalvular insufficiency of the mitral valve. The mitral papillary muscle appears thickened and/or calcified. Mild to moderate (1-2+) tricuspid valve insufficiency. Mild diffuse aortic valve calcification. Trivial aortic valve insufficiency. Mild-Moderate (1-2+) pulmonic valve insufficiency. Calcified aortic root. Right ventricular systolic pressure estimated to be 72 mmHg. Unable to assess diastolic dysfunction. Ordering Physician: Dilshad Gomez Referring Physician: JORDY ENRIQUE Performed By: Starr Gomez, YENNI, RVT
[2019-01-12 11:15] LABS: International Normalized Ratio 2.6
[2019-01-12 11:46] LABS: Bedside Glucose 215 mg/dL (70-110)
--- NOTE | 2019-01-12 15:45 | PCM.PN.HOSP ---
Patient Problems: Active and Suspected Problems (Last Reviewed 12/11/18 @ 11:55 by Beto Dennis MD) Respiratory failure (Acute) Subjective: Patient still has subjective feeling of shortness of breath and bilateral lower extremities edema. No fever. Heart rate is controlled in 50s. Regular rhythm. Patient is on baseline 2 L of home oxygen. Blood sugars are better controlled. Patient has probably a CPAP or BiPAP at home but not using it. Vitals/I&O's: Vital Signs Temp Pulse Resp BP Pulse Ox 97 F L 64 20 H 146/67 H 98 01/12/19 14:08 01/12/19 14:08 01/12/19 14:08 01/12/19 14:08 01/12/19 14:08 Oxygen Flow Rate (L/min) 2 Oxygen Delivery Method Nasal Cannula Weight: 193 lb 9.054 oz Body Mass Index (BMI) 33.5 Finger Stick Blood Glucose 257 Intake and Output for Last 24 Hours 01/10/19 01/11/19 01/12/19 23:59 23:59 23:59 Intake Total 1580 / 1580 Output Total 1100 / 1100 0 / 0 Balance 480 / 480 General: Alert, Oriented x3, Cooperative HEENT: Atraumatic, PERRLA, EOMI, Normocephalic Neck: Supple, No JVD, Negative Carotid Bruits Lungs: Short of Breath, Wheezes, - - Expiratory phase is short. Bilateral wheezing present. Intermittent nasal congestion. Cardiovascular: Regular rate, Regular Rhythm, Normal S1, Normal S2, No murmurs Abdomen: Bowel Sounds Present, Soft, Non Tender, Non-Distended Extremities: Capillary Refill Less than 3 Seconds, Edema Skin: No rashes, No breakdown Musculoskeletal: No Tenderness to Palpation of Joints or Extremities Neurological: Cranial nerves II-XII grossly intact Psych/Mental Status: Normal Affect, Appropriate Microbiology Past 72 Hours 01/12/19 12:05 Mucosa - Nose Respiratory Panel (PCR) - Final Laboratory Results 01/11/19 15:55: POC Glucose 354 H 01/11/19 21:04: POC Glucose 100 01/12/19 00:41: POC Glucose 131 H 01/12/19 07:01: POC Glucose 220 H 01/12/19 08:24: Sodium 136, Potassium 4.0, Chloride 100, Carbon Dioxide 28.0, Anion Gap 8, BUN 65 H, Creatinine 2.63 H, Estim Creat Clear Calc 14.82, Est GFR (MDRD) Af Amer 23 L, Est GFR (MDRD) Non-Af 19 L, BUN/Creatinine Ratio 24.7 H, Glucose 202 H, Calcium 8.2 L 01/12/19 08:24: PT 28.0 H, INR 2.6 01/12/19 11:40: POC Glucose 215 H Current Medications Albuterol/Ipratropium (Duoneb) 3 ml INHALATION Q4HWA.RT [facility] Last Admin: 01/12/19 12:05 Dose: 3 ml Documented by: Amiodarone HCl (Cordarone) 100 mg PO DAILY [facility] Last Admin: 01/12/19 08:53 Dose: 100 mg Documented by: Aspirin (Ecotrin) 81 mg PO QHS [facility] Last Admin: 01/11/19 21:07 Dose: 81 mg Documented by: Budesonide (Pulmicort Aerosol) 0.5 mg INHALATION Q12H.RT [facility] Last Admin: 01/12/19 07:37 Dose: 0.5 mg Documented by: Calcitriol (Rocaltrol) 0.25 mcg PO MOWEFR [facility] Last Admin: 01/11/19 08:05 Dose: 0.25 mcg Documented by: Dextrose (D50w Syringe) 0 gm IV X1 PRN; Protocol PRN Reason: Hypoglycemia Diphenhydramine HCl (Benadryl) 25 mg IV Q6H PRN PRN PRN Reason: ITCHING Last Admin: 01/12/19 08:58 Dose: 25 mg Documented by: Diphenhydramine HCl (Benadryl) 25 mg PO Q6H PRN PRN PRN Reason: ITCHING Furosemide (Lasix) 80 mg IV BID@1000,1800 [facility] Glucagon () 1 mg IM .X1 PRN PRN Reason: Hypoglycemia Insulin Glargine (Lantus (Bkc)) 50 units SC 1100 [facility] Last Admin: 01/12/19 13:16 Dose: 50 u Documented by: Insulin Human Lispro (Humalog Kwikpen (Bkc)) 0 unit SQ ACHS [facility]; Protocol Last Admin: 01/12/19 13:14 Dose: 4 u Documented by: Insulin Human Lispro (Humalog Kwikpen (Bkc)) 20 unit SC TIDAC [facility] Last Admin: 01/12/19 13:15 Dose: 20 u Documented by: Levothyroxine Sodium (Synthroid) 88 mcg PO DAILY@0600 [facility] Last Admin: 01/12/19 05:57 Dose: 88 mcg Documented by: Loratadine (Claritin) 10 mg PO DAILY [facility] Metolazone (Zaroxolyn) 5 mg PO DAILY [facility] Multivitamins/Minerals ([facility]ivitamin With Minerals) [facility] Last Admin: 01/12/19 08:53 Dose: 1 tablet Documented by: Sodium Chloride () 5 - 15 ml IV UD PRN PRN Reason: SALINE FLUSH Last Admin: 01/12/19 00:46 Dose: 10 ml Documented by: Warfarin Sodium (Coumadin (Pbkc)) 4 mg PO MoTu@1700 [facility]; Protocol Last Admin: 01/11/19 16:00 Dose: 4 mg Documented by: Warfarin Sodium (Coumadin (Pbkc)) 3 mg PO SuWeThFrSa@1700 [facility]; Protocol Medical Necessity - Tobacco Use Smoking Status: Never smoker Assessment/Plan All Active Problems (Last Reviewed 12/11/18 @ 11:55 by Beto Dennis MD) Ulcer of left lower extremity with fat layer exposed (Acute) Respiratory failure (Acute) Wheeze (Acute) Ischemic cerebrovascular accident (CVA) (Resolved) Subdural bleeding (Resolved) The patient is a 78 year old F with past medical history of mitral valve replacement with bioprosthetic valve, moderate to severe pulmonary hypertension, chronic diastolic CHF, paroxysmal atrial fibrillation, hypertension, type II DM, chronic venous stasis dermatitis with resultant bilateral leg ulcers who comes in with progressive shortness of breath ongoing for weeks worse over the last 1 to 2 days. 1. Chronic hypoxic respiratory failure secondary to acute on chronic diastolic CHF, unlikely recent is currently on BiPAP, continue on BiPAP, breathing treatments, IV Lasix, wean off for SPO2 more than 92%, encourage incentive spirometer. Correction: Patient is on 2 L of home oxygen therefore chronic hypoxic respiratory failure. 2. Acute on chronic diastolic CHF, with severe pulmonary hypertension: Patient had echo in May 2018 and reported as EF 65% with normal LV systolic function. No regional wall motion abnormalities. Normal RV size and systolic function. Right atrium mildly enlarged. Left atrium mildly enlarged. Stable appearing bioprosthetic mitral valve apparatus. 1-2+ eccentric TR, RVSP 72 mmHg. Lasix increased to 80 mg IV twice daily and will titrate as per intake and output, fluid status and renal function. BNP 126. patient is short of breath mainly secondary to pulmonary hypertension. Repeat 2D echo ordered. Discussed with her scanning clerk and associate [employer]. Logging Shovel Operator added metolazone and keep Lasix 80 mg twice daily. 3. HERNAN on CKD secondary to acute on chronic diastolic CHF, cardiorenal disease: Patient wants to change scanning clerk from Dr. Ulloa to [facility]. Discussed with the [facility] scanning clerk. Creatinine slowly creeping up secondary to diuretic effect. Logging Shovel Operator agree with above plan. Monitor kidney function. 4. Moderate to severe pulmonary hypertension/status post mitral valve replacement/paroxysmal atrial fibrillation/hypertension continue on aspirin, warfarin, statin, amiodarone. INR therapeutic 2.6. 5. Type 2 DM, poorly controlled with hyperglycemia: Blood sugar has been critically high on Accu-Cheks more than 505 140 on BMP on 2 occasions. Lantus increased to 50 units subcutaneous daily. Humalog increased to 20 units subcu units 3 times daily and high-dose sliding scale. An extra dose of Lantus 20 units given. Seems critical hypoglycemia probably response to Solu-Medrol 125 mg IV given in ER. 6. Chronic venous leg ulcers, closed with the wound clinic, wound nurse consult 7. Hypothyroidism, on levothyroxine DVT prophylaxis: On Coumadin. Code Visit Inpatient E&M: 93278 [facility] L3
--- NOTE | 2019-01-12 17:08 | PCM.PN.REN ---
Patient Problems: Active and Suspected Problems (Last Reviewed 12/11/18 @ 11:55 by Beto Dennis MD) Respiratory failure (Acute) Subjective: Patient is complaining that her edema is worse today. She said she didn't make much urine with the Lasix 80 mg twice a day IV. Breathing is stable. On nasal cannula 2 l/m - Physical Exam General: Alert, Oriented x3 HEENT: Atraumatic Oral: Moist Mucosa Neck: Supple, No JVD Lungs: - - bilateral lungs bases crackles Cardiovascular: Regular rate, Regular Rhythm, Normal S1, Normal S2 Abdomen: Bowel Sounds Present, Soft, Non Tender Extremities: Edema - +2 edema of lower extremities Musculoskeletal: No Tenderness to Palpation of Joints or Extremities Lymphatic: No Cervical, Supraclavicular, or Inguinal Adenopathy Neurological: Cranial nerves II-XII grossly intact, Neuro grossly intact Vital Signs Temp Pulse Resp BP Pulse Ox 96.2 F L 64 16 151/67 H 100 01/12/19 16:05 01/12/19 16:05 01/12/19 16:05 01/12/19 16:05 01/12/19 16:05 Oxygen Flow Rate (L/min) 2 Oxygen Delivery Method Nasal Cannula Weight: 87.8 kg Body Mass Index (BMI) 33.5 Finger Stick Blood Glucose 257 Intake and Output for Last 24 Hours 01/10/19 01/11/19 01/12/19 23:59 23:59 23:59 Intake Total 1580 / 1580 380 / 380 Output Total 1100 / 1100 200 / 200 Balance 480 / 480 180 / 180 Microbiology Past 72 Hours 01/12/19 12:05 Respiratory Panel (PCR) - Final Mucosa - Nose Laboratory Tests Past 24 Hrs 01/12/19 01/12/19 08:24 08:24 PT 28.0 H INR 2.6 Sodium 136 Potassium 4.0 Chloride 100 Carbon Dioxide 28.0 Anion Gap 8 BUN 65 H Creatinine 2.63 H Estim Creat Clear Calc 14.82 Est GFR (MDRD) Af Amer 23 L Est GFR (MDRD) Non-Af 19 L BUN/Creatinine Ratio 24.7 H Glucose 202 H Calcium 8.2 L POC Glucose 01/12/19 01/12/19 01/12/19 11:40 07:01 00:41 POC Glucose 215 H 220 H 131 H 01/11/19 21:04 POC Glucose 100 Medical Necessity - Tobacco Use Smoking Status: Never smoker Assessment/Plan All Active Problems (Last Reviewed 12/11/18 @ 11:55 by Beto Dennis MD) Ulcer of left lower extremity with fat layer exposed (Acute) Respiratory failure (Acute) Wheeze (Acute) Ischemic cerebrovascular accident (CVA) (Resolved) Subdural bleeding (Resolved) 1- 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 from CRS and DNP worsening kidney function is most probably related to cardiorenal syndrome. Creatinine is up to 2.6 mg deciliter. Weight is increasing. I'll continue Lasix 80 mg twice a day IV. I'll add metolazone 5 mg by mouth daily Please avoid BETZAIDA inhibitor or ARB with diuresis. no need for DISH TECHNICIAN Will monitor kidney function with diuresis 2- HTN: BP is well controlled continue same BP meds Avoid ACEI/ARN 3- edema : worsening. I will add metolazone as above low sodium diet of 2000 mg PO daily fluid restriction of 45 oz daily continue daily weight Renal team will continue to follow Thank you for the consult call if any question at [phone] Magdy Flores MD
[2019-01-12 17:11] LABS: Bedside Glucose 121 mg/dL (70-110)
[2019-01-12] MEDS: Furosemide 100 MG/10 ML Vial 80 MG IV (17:19)
[2019-01-12] MEDS: Aspirin E.C. 81 MG Tablet PO (22:37)
[2019-01-12] MEDS: DiphenhydrAMINE 25 MG Capsule PO (22:40)
[2019-01-12 22:50] LABS: Bedside Glucose 59 mg/dL (70-110)
[2019-01-12 23:31] LABS: Bedside Glucose 87 mg/dL (70-110)
[2019-01-13] VITALS (13 sets, daily range): BP systolic 154–179; BP diastolic 66–85; PULSE 57–79; RESP 16–22; TEMP 35.7–36.8; O2SAT 93–100
[2019-01-13 03:46] LABS: Bedside Glucose 74 mg/dL (70-110)
[2019-01-13] MEDS: Levothyroxine 88 MCG Tablet PO (05:24)
[2019-01-13 05:54] LABS: Absolute Lymphocyte Count 0.92 X10^3/ul (0.83-4.51); Absolute Neutrophil Count 6.8 X10^3/uL (2.0-7.7); Basophil# 0.04 X10^3/uL; Basophil% 0.3 % (0-1); Eosinophils% 27.9 % (0-5); Hematocrit 33.7 % (37-47); Hemoglobin 10.6 g/dl (12.0-15.0); Lymphocyte # 0.92 X10^3/ul (4.0); Lymphocyte % 7.9 % (19-41); Mean Corp Hgb Conc 31.5 g/gl (32-36); Mean Corpuscular Hgb 25.4 pg (27.0-32.0); Mean Corpuscular Volume 80.8 fL (81-99); Mean Platelet Vol. 11.2 fl (6.2-12.0); Monocyte# 0.54 X10^3/uL; Monocyte% 4.6 % (0-10); Neutrophil # 6.81 X10^3/uL (2.7-7.7); Neutrophil % 58.6 % (47-70); Platelet Count 158 K/mm3 (150-450); RBC Distribution Width CV 16.5 % (11.6-14.6); RBC Distribution Width SD 47.8 fl (35.1-43.9); Red Blood Count 4.17 M/mm3 (4.2-5.4); White Blood Count 11.6 K/mm3 (4.4-11.0)
[2019-01-13 05:58] LABS: Differential Indicated SCAN CRITERIA MET; Eosinophil# 3.24 X10^3/uL; POSITIVE COUNT NO; POSITIVE DIFFERENTIAL YES; POSITIVE MORPHOLOGY NO
[2019-01-13 06:07] LABS: International Normalized Ratio 2.4; Prothrombin Time (Protime)PT. 26.4 SECONDS (11.7-14.9)
[2019-01-13 06:30] LABS: Anion Gap 11 (5-15); BUN 69 mg/dL (7-18); BUN/Creat Ratio 26.6 RATIO (10-20); Calcium,Total 7.9 mg/dL (8.5-10.1); Chloride 105 mmol/L (98-107); Creatinine, Serum 2.59 mg/dL (0.55-1.02); EST Glomerular Filtration Rate 19 mL/min (>60); Est Glom Filt Rate - Afr Amer 23 mL/min (>60); Estimated Creatinine Clearance 15.05 ml/min; Glucose 168 mg/dL (74-106); Potassium 4.9 mmol/L (3.5-5.1); Sodium Level 142 mmol/L (136-145)
[2019-01-13 06:31] LABS: Bedside Glucose 197 mg/dL (70-110)
[2019-01-13] MEDS: Budesonide Respules 0.5 MG/2 ML AMPUL.NEB. INHALATION ×2 (06:32→19:38)
[2019-01-13] MEDS: Ipratropium/Albuterol Sulfate 3 ML AMPUL.NEB INHALATION ×3 (06:32→14:44)
[2019-01-13 06:50] LABS: Differential Comment SCAN
--- NOTE | 2019-01-13 07:45 | PCM.PN.HOSP ---
Patient Problems: Active and Suspected Problems (Last Reviewed 12/11/18 @ 11:55 by Beto Dennis MD) Respiratory failure (Acute) Subjective: Patient is on high dose of Lasix, 80 mg twice daily, still did not lose weight/clinically significant diuresis. Not short of breath at rest but easily gets on mild exertion. Has chronic cough. Respiratory panel is negative. On bronchodilator. Blood sugars are running low, last evening and night, in 70s and 80s. Lantus and Humalog insulin decreased. Vitals/I&O's: Vital Signs Temp Pulse Resp BP Pulse Ox 98.2 F 59 L 18 179/85 H 100 01/13/19 03:20 01/13/19 06:27 01/13/19 03:20 01/13/19 03:20 01/13/19 03:20 Oxygen Flow Rate (L/min) 2 Oxygen Delivery Method Nasal Cannula Weight: 192 lb 14.472 oz Body Mass Index (BMI) 33.5 Finger Stick Blood Glucose 257 Intake and Output for Last 24 Hours 01/11/19 01/12/19 01/13/19 23:59 23:59 23:59 Intake Total 1580 / 1580 500 / 740 480 / 480 Output Total 1100 / 1100 500 / 500 1150 / 1150 Balance 480 / 480 0 / 240 -670 / -670 General: Alert, Oriented x3, Cooperative HEENT: Atraumatic, PERRLA, EOMI, Normocephalic Neck: Supple, No JVD, Negative Carotid Bruits Lungs: Diminished - Air entry is diminished. Expiratory phase prolonged. Difficulty in clearing sputum., Rhonchi Cardiovascular: Regular rate, Regular Rhythm, Normal S1, Normal S2, Murmur - Systolic murmur ove rLeft lower external border and mitral area. Abdomen: Bowel Sounds Present, Soft, Non Tender, Non-Distended Extremities: Capillary Refill Less than 3 Seconds, Edema - Edema is more distributed over the knee and thigh area. Skin: No rashes, No breakdown Musculoskeletal: No Tenderness to Palpation of Joints or Extremities Lymphatic: No Cervical, Supraclavicular, or Inguinal Adenopathy Neurological: Cranial nerves II-XII grossly intact, Deep Tendon Reflexes 2+/4 and Symmetrical, Neuro grossly intact Psych/Mental Status: Normal Affect, Appropriate Microbiology Past 72 Hours 01/12/19 12:05 Mucosa - Nose Respiratory Panel (PCR) - Final Laboratory Results 01/12/19 08:24: Sodium 136, Potassium 4.0, Chloride 100, Carbon Dioxide 28.0, Anion Gap 8, BUN 65 H, Creatinine 2.63 H, Estim Creat Clear Calc 14.82, Est GFR (MDRD) Af Amer 23 L, Est GFR (MDRD) Non-Af 19 L, BUN/Creatinine Ratio 24.7 H, Glucose 202 H, Calcium 8.2 L 01/12/19 08:24: PT 28.0 H, INR 2.6 01/12/19 11:40: POC Glucose 215 H 01/12/19 17:07: POC Glucose 121 H 01/12/19 22:32: POC Glucose 59 L 01/12/19 23:26: POC Glucose 87 01/13/19 03:29: POC Glucose 74 01/13/19 05:15: WBC 11.6 H, RBC 4.17 L, Hgb 10.6 L, Hct 33.7 L, MCV 80.8 L, MCH 25.4 L, MCHC 31.5 L, RDW 16.5 H, RDW Differential 47.8 H, Plt Count 158, MPV 11.2, Immature Gran % (Auto) 0.700, Neut % (Auto) 58.6, Lymph % (Auto) 7.9 L, Blackford % (Auto) 4.6, Eos % (Auto) 27.9 H, Baso % (Auto) 0.3, Absolute Neuts (auto) 6.8, Absolute Lymphs (auto) 0.92, Total Counted Not Reportable, Differential Comment SCAN, Diff Path Review November01/13/19 05:15: Sodium 142, Potassium 4.9, Chloride 105, Carbon Dioxide 26.0, Anion Gap 11, BUN 69 H, Creatinine 2.59 H, Estim Creat Clear Calc 15.05, Est GFR (MDRD) Af Amer 23 L, Est GFR (MDRD) Non-Af 19 L, BUN/Creatinine Ratio 26.6 H, Glucose 168 H, Calcium 7.9 L 01/13/19 05:15: PT 26.4 H, INR 2.4 01/13/19 06:23: POC Glucose 197 H Current Medications Albuterol/Ipratropium (Duoneb) 3 ml INHALATION Q4HWA.RT [facility] Last Admin: 01/13/19 06:32 Dose: 3 ml Documented by: Amiodarone HCl (Cordarone) 100 mg PO DAILY [facility] Last Admin: 01/12/19 08:53 Dose: 100 mg Documented by: Aspirin (Ecotrin) 81 mg PO QHS [facility] Last Admin: 01/12/19 22:37 Dose: 81 mg Documented by: Budesonide (Pulmicort Aerosol) 0.5 mg INHALATION Q12H.RT [facility] Last Admin: 01/13/19 06:32 Dose: 0.5 mg Documented by: Calcitriol (Rocaltrol) 0.25 mcg PO MOWEFR [facility] Last Admin: 01/11/19 08:05 Dose: 0.25 mcg Documented by: Dextrose (D50w Syringe) 0 gm IV X1 PRN; Protocol PRN Reason: Hypoglycemia Diphenhydramine HCl (Benadryl) 25 mg IV Q6H PRN PRN PRN Reason: ITCHING Last Admin: 01/12/19 08:58 Dose: 25 mg Documented by: Diphenhydramine HCl (Benadryl) 25 mg PO Q6H PRN PRN PRN Reason: ITCHING Last Admin: 01/12/19 22:40 Dose: 25 mg Documented by: Glucagon () 1 mg IM .X1 PRN PRN Reason: Hypoglycemia Guaifenesin (Mucinex) 1,200 mg PO BID [facility] Furosemide 500 mg/ N/A 50 mls @ 1 mls/hr CONT INF .Q50H [facility] Insulin Glargine (Lantus (Bkc)) 50 units SC 1100 [facility] Last Admin: 01/12/19 13:16 Dose: 50 u Documented by: Insulin Human Lispro (Humalog Kwikpen (Bkc)) 0 unit SQ ACHS [facility]; Protocol Last Admin: 01/12/19 22:35 Dose: Not Given Documented by: Insulin Human Lispro (Humalog Kwikpen (Bkc)) 20 unit SC TIDAC [facility] Last Admin: 01/12/19 17:16 Dose: 20 u Documented by: Levothyroxine Sodium (Synthroid) 88 mcg PO DAILY@0600 [facility] Last Admin: 01/13/19 05:24 Dose: 88 mcg Documented by: Loratadine (Claritin) 10 mg PO DAILY [facility] Metolazone (Zaroxolyn) 5 mg PO DAILY [facility] Multivitamins/Minerals ([facility]) [facility] Last Admin: 01/12/19 08:53 Dose: 1 tablet Documented by: Sodium Chloride () 5 - 15 ml IV UD PRN PRN Reason: SALINE FLUSH Last Admin: 01/12/19 17:20 Dose: 10 ml Documented by: Warfarin Sodium (Coumadin (Pbkc)) 4 mg PO MoTu@1700 [facility]; Protocol Last Admin: 01/11/19 16:00 Dose: 4 mg Documented by: Warfarin Sodium (Coumadin (Pbkc)) 3 mg PO SuWeThFrSa@1700 [facility]; Protocol Last Admin: 01/12/19 17:16 Dose: 3 mg Documented by: Medical Necessity - Tobacco Use Smoking Status: Never smoker Assessment/Plan All Active Problems (Last Reviewed 12/11/18 @ 11:55 by Beto Dennis MD) Ulcer of left lower extremity with fat layer exposed (Acute) Respiratory failure (Acute) Wheeze (Acute) Ischemic cerebrovascular accident (CVA) (Resolved) Subdural bleeding (Resolved) The patient is a 78 year old F with past medical history of mitral valve replacement with bioprosthetic valve, moderate to severe pulmonary hypertension, chronic diastolic CHF, paroxysmal atrial fibrillation, hypertension, type II DM, chronic venous stasis dermatitis with resultant bilateral leg ulcers who comes in with progressive shortness of breath ongoing for weeks worse over the last 1 to 2 days. 1. Chronic hypoxic respiratory failure secondary to acute on chronic diastolic CHF, unlikely recent is currently on BiPAP, continue on BiPAP, breathing treatments, wean off for SPO2 more than 92%, encourage incentive spirometer. Correction: Patient is on 2 L of home oxygen therefore chronic hypoxic respiratory failure. 2. Acute on chronic diastolic CHF, with severe pulmonary hypertension and valvular heart disease status post MVR/paroxysmal atrial fibrillation/hypertension: Patient had echo in May 2018 and reported as EF 65% with normal LV systolic function. No regional wall motion abnormalities. Normal RV size and systolic function. Right atrium mildly enlarged. Left atrium mildly enlarged. Stable appearing bioprosthetic mitral valve apparatus. 1-2+ eccentric TR, RVSP 72 mmHg. Lasix increased to 80 mg IV twice daily and will titrate as per intake and output, fluid status and renal function. BNP 126. patient is short of breath mainly secondary to pulmonary hypertension. Repeat 2D echo showed mildly dilated right ventricle with global right ventricular systolic dysfunction, change from the previous echo in May 2018. Stable appearing bioprosthetic mitral valve apparatus is trivial MR. Mild to moderate TR with RVSP 72 mmHg. Mild to moderate NM. Discussed with Dr. Dennis and advised Lasix drip. Continue metolazone. He agree with above plan states nothing much more to offer from cardiology side. continue on aspirin, warfarin, statin, amiodarone. INR therapeutic 2.4 Pulmonary consult reviewed. Agree with [place] catheter insertion for strict I and O's measurement, although the patient was reluctant in the morning. Patient also has significant eosinophilia, about 28%. Advised nocturnal CPAP with pressure support of 11 cm of water. 3. HERNAN on CKD secondary to acute on chronic diastolic CHF, cardiorenal disease: Patient wants to change repairer recreational vehicle from Dr. Ulloa to [facility]. Discussed with the [facility] repairer recreational vehicle. Creatinine slowly creeping up secondary to diuretic effect. Data Center Project Manager agree with above plan. Monitor kidney function. As the patient is not responding to Lasix last few days, repairer recreational vehicle wants to change to Bumex drip. Bumex drip was started. 4. COPD/restrictive lung disease with mixed ventilatory pattern on PFT: Supportive treatment with Mucinex, incentive spirometry and chest physiotherapy. Respiratory panel is negative. 5. Type 2 DM, poorly controlled with hyperglycemia: Blood sugars are running low. Insulin adjusted accordingly. 6. Chronic venous leg ulcers, closed with the wound clinic, wound nurse consult 7. Hypothyroidism, on levothyroxine DVT prophylaxis: On Coumadin. Microbiology Past 72 Hours 01/12/19 12:05 Mucosa - Nose Respiratory Panel (PCR) - Final Laboratory Results 01/12/19 08:24: Sodium 136, Potassium 4.0, Chloride 100, Carbon Dioxide 28.0, Anion Gap 8, BUN 65 H, Creatinine 2.63 H, Estim Creat Clear Calc 14.82, Est GFR (MDRD) Af Amer 23 L, Est GFR (MDRD) Non-Af 19 L, BUN/Creatinine Ratio 24.7 H, Glucose 202 H, Calcium 8.2 L 01/13/19 05:15: WBC 11.6 H, RBC 4.17 L, Hgb 10.6 L, Hct 33.7 L, MCV 80.8 L, MCH 25.4 L, MCHC 31.5 L, RDW 16.5 H, RDW Differential 47.8 H, Plt Count 158, MPV 11.2, Immature Gran % (Auto) 0.700, Neut % (Auto) 58.6, Lymph % (Auto) 7.9 L, Blackford % (Auto) 4.6, Eos % (Auto) 27.9 H, Baso % (Auto) 0.3, Absolute Neuts (auto) 6.8, Absolute Lymphs (auto) 0.92, Total Counted Not Reportable, Differential Comment SCAN, Diff Path Review November01/13/19 05:15: Sodium 142, Potassium 4.9, Chloride 105, Carbon Dioxide 26.0, Anion Gap 11, BUN 69 H, Creatinine 2.59 H, Estim Creat Clear Calc 15.05, Est GFR (MDRD) Af Amer 23 L, Est GFR (MDRD) Non-Af 19 L, BUN/Creatinine Ratio 26.6 H, Glucose 168 H, Calcium 7.9 L 01/13/19 05:15: PT 26.4 H, INR 2.4 01/13/19 06:23: POC Glucose 197 H Code Visit Inpatient E&M: 98927 Subs Hosp L3
[2019-01-13] MEDS: Insulin Lispro 100 UNIT/ML INSULN.PEN 15 UNIT SC ×2 (08:18→12:34)
[2019-01-13] MEDS: Insulin Lispro 100 UNIT/ML INSULN.PEN SQ ×2 (08:18→22:37)
[2019-01-13] MEDS: Amiodarone 200 MG Tablet 100 MG PO (08:19)
[2019-01-13] MEDS: Loratadine 10 MG Tablet PO (08:19)
[2019-01-13] MEDS: metOLazone 5 MG Tablet PO (08:19)
[2019-01-13] MEDS: Multivitamins,Ther W-Minerals Tablet 1 TABLET PO (08:19)
[2019-01-13] MEDS: Calcitriol 0.25 MCG Capsule PO (08:19)
[2019-01-13] MEDS: Furosemide 500 MG in Empty Viaflex 50 mL 1 EACH CONT INF (08:58)
[2019-01-13] MEDS: guaiFENesin 1,200 MG Tablet 1200 MG PO ×2 (08:58→22:40)
[2019-01-13 11:40] LABS: Bedside Glucose 118 mg/dL (70-110)
--- NOTE | 2019-01-13 13:17 | CON.PCM_ITS ---
Reason for Consult Date of Consultation: 01/13/19 Reason for Consultation: Pulmonary hypertension and right ventricular failure History of Present Illness: The patient is a 78-year-old female, with a history as outlined below, who initially presented to the emergency department on January 10 with complaints of shortness of breath. The patient has a known history of chronic hypoxemic respiratory failure, chronic heart failure with preserved ejection fraction, obstructive sleep apnea and pulmonary hypertension. She is currently followed in the pulmonary medicine clinic by Dr. Smiley. Pulmonary function studies last completed in September 2018 revealed evidence of a reversible moderate mixed ventilatory defect with symmetric reduction in diffusing capacity. On presentation to the emergency department, the patient was noted to be afebrile and hemodynamically stable. She was tachypneic and was documented to be saturating 88% on room air. Initial laboratory evaluation revealed an elevated white blood cell count to 18,000. She did have an elevated peripheral eosinophil count as well. INR was noted to be 2.6. Chemistry profile was significant for chronic kidney disease with a creatinine of 2.14. Troponin was negative. BNP was elevated to 126. Plain film chest x-ray revealed no evidence of an acute infiltrative process. Due to presenting respiratory distress, the patient was placed on BiPAP therapy. She was subsequently admitted to the progressive care unit for management of a presumed CHF exacerbation. It does appear that the patient has improved from a respiratory perspective throughout her hospital course and is now able to maintain appropriate oxygen saturations on room air. She has been maintained on scheduled bronchodilators and budesonide. This morning, the patient's CBC differential revealed nearly 28% eosinophils. RAST profile completed at the beginning of December 2018 was largely unremarkable. IgE level was only noted to be 21. Aspergillus antibodies were negative. A repeat surface echocardiogram completed on January 12 revealed mild concentric LVH with an ejection fraction of 65%. There was mild global RV systolic dysfunction along with a right ventricular systolic pressure estimated to be 72 mmHg. Past Medical History Past Medical History (Chronic Problems): Chronic Problems (Last Reviewed 12/11/18 @ 11:55 by Beto Dennis MD) Venous insufficiency of both lower extremities (Chronic) CHF exacerbation (Chronic) COPD exacerbation (Chronic) Chronic kidney disease (Chronic) Secondary pulmonary arterial hypertension (Chronic) Chronic diastolic (congestive) heart failure (Chronic) Essential (primary) hypertension (Chronic) Non-rheumatic mitral valve stenosis (Chronic) H/O coronary 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) CABG x 1 : SVG to distal LAD 09/29/2014 Atherosclerosis of coronary artery of [place] heart without angina pectoris (Chronic) CABG x 1 : SVG to distal LAD 09/29/2014 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 Angela Alexis History of mitral valve replacement with bioprosthetic valve (Chronic 09/29/14) 09/29/2014: MVR with 27 mm Medtronic tisue valve per Dr. Angela Alexis Hyperlipidemia (Chronic) Medical History: Medical History (Last Reviewed 12/11/18 @ 11:55 by Beto Dennis MD) Secondary pulmonary arterial hypertension (Chronic) I27.21 Chronic diastolic (congestive) heart failure (Chronic) I50.32 Ischemic cerebrovascular accident (CVA) (Resolved) I63.9 ischemic stroke w hemorrhagic transformation in the setting of coumadin anticoagulation Essential (primary) hypertension (Chronic) I10 Non-rheumatic mitral valve stenosis (Chronic) I34.2 Atherosclerosis of coronary artery of [place] heart without angina pectoris (Chronic) I25.10 CABG x 1 : SVG to distal LAD 09/29/2014 Chronic hypoxemic respiratory failure (Chronic) J96.11 Paroxysmal atrial fibrillation (Chronic) I48.0 Hyperlipidemia (Chronic) E78.5 Dyspnea on exertion R06.09 Edema R60.9 Pulmonary hypertension, moderate to severe I27.20 Shortness of breath R06.02 Anemia D64.9 Chronic renal failure N18.9 Depression F32.9 Peripheral vascular disease I73.9 Type 2 diabetes mellitus E11.9 Subdural bleeding (Resolved) I62.00 Allergies dronedarone [From Multaq] Allergy (Severe, Verified 01/10/19 17:08) difficulty breathing dronedarone HCl [From Multaq] Allergy (Verified 01/10/19 17:08) Other unable to breath levofloxacin [From Levaquin] Adverse Reaction (Severe, Verified 01/10/19 17:08) hallucinations, hot flashes quinapril [From Accupril] Adverse Reaction (Severe, Verified 01/10/19 17:08) near syncope cortisone Adverse Reaction (Intermediate, Verified 01/10/19 17:08) swelling hydralazine Adverse Reaction (Intermediate, Verified 01/10/19 17:08) weakness Beta-Blockers (Beta-Adrenergic Bloc Adverse Reaction (Verified 01/10/19 17:08) Other WHEEZING, shaking, passes out CARDURA Allergy (Uncoded 01/10/19 17:08) Other PT NOT SURE- POSSIBLE SWELLING NORVASC Allergy (Uncoded 01/10/19 17:08) Swelling SCALLOPS Allergy (Uncoded 01/10/19 17:08) Swelling SULFA Allergy (Uncoded 01/10/19 17:08) Other SPOTS IN MOUTH/SORE MOUTH ATIVAN Adverse Reaction (Uncoded 01/10/19 17:08) Other HALLUCINATIONS METATOPOLOL TARTATE Adverse Reaction (Uncoded 01/10/19 17:08) Other Home Medications: Ambulatory Orders Medication Instructions Recorded Albuterol Inhaler [Ventolin Hfa] 2 puff INHALATION Q4H PRN PRN #1 10/27/14 inhaler Aspirin E.C. [Ecotrin] 81 mg PO QHS 01/07/18 Albuterol Aerosols [Ventolin 3 ml INHALATION BID 06/22/18 Aerosols] Multivit-Min/Iron/Folic/Lutein 1 tab PO DAILY 06/22/18 [Centrum Silver Women Tablet] levothyroxine 88 mcg tablet 88 mcg PO DAILY 30 Days #90 tab 07/27/18 insulin lispro (U- 100) 100 See Protocol SC .with meals ml 09/29/18 unit/mL subcutaneous pen Lecithin, Soy [Lecithin] 1,200 mg PO DAILY 11/23/18 Losartan Potassium [Cozaar] 50 mg PO DAILY 11/23/18 Warfarin Sodium 3 mg PO SUWETHFRSA 11/23/18 Warfarin Sodium [Coumadin] 4 mg PO MOTU 11/23/18 Calcitriol [Rocaltrol] 0.25 mcg PO MOWEFR cap 11/25/18 Fluticasone/Umeclidin/Vilanter 1 ea IH DAILY #1 inhaler 11/26/18 [Trelegy Ellipta 100-62.5-25] Guaifenesin [Mucinex] 1,200 mg PO BID #20 tab 11/26/18 Insulin Lispro [Humalog KwikPen] 10 unit SUBCUT TIDAC #1 insuln.pen 11/26/18 loratadine 10 mg capsule 10 mg PO QDAY #30 cap 12/10/18 montelukast 10 mg tablet 10 mg PO QPM #30 tab 12/10/18 furosemide 40 mg tablet 40 mg PO BID #180 tab 12/11/18 amiodarone 200 mg tablet 100 mg PO DAILY #45 tab 12/28/18 Insulin Glargine [Lantus SoloStar 40 units SC DAILY 01/10/19 Pen] Surgical History: Surgical History (Last Reviewed 12/11/18 @ 11:55 by Beto Dennis MD) H/O coronary artery bypass surgery (Chronic) Onset Date: 09/29/14 Z95.1 CABG x 1 : SVG to distal LAD 09/29/2014 History of maze procedure (Chronic) Onset Date: 09/29/14 Z98.890 09/29/2014 atricure pulmonary vein isolation MAZE with ligation of left atrial appendage per Dr. Angela Alexis History of mitral valve replacement with bioprosthetic valve (Chronic) Onset Date: 09/29/14 Z95.3 09/29/2014: MVR with 27 mm Medtronic tisue valve per Dr. 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: No pertinent CERTIFIED PHARMACY TECH history Smoking Status: Never smoker - *Family History Maternal Family History: Family History (Last Reviewed 12/11/18 @ 11:55 by Beto Dennis MD) Father CAD (coronary artery disease) Hypertension Myocardial infarction Sudden cardiac Hyperlipidemia Mother Breast cancer Brother Cancer Sister Breast cancer Hyperlipidemia Sister Hyperlipidemia History Items: Cancer Paternal Family History: Family History (Last Reviewed 12/11/18 @ 11:55 by Beto Dennis MD) Father CAD (coronary artery disease) Hypertension Myocardial infarction Sudden cardiac Hyperlipidemia Mother Breast cancer Brother Cancer Sister Breast cancer Hyperlipidemia Sister Hyperlipidemia History Items: Heart Disease, Stroke Sibling Family History: Family History (Last Reviewed 12/11/18 @ 11:55 by Beto Dennis MD) Father CAD (coronary artery disease) Hypertension Myocardial infarction Sudden cardiac Hyperlipidemia Mother Breast cancer Brother Cancer Sister Breast cancer Hyperlipidemia Sister Hyperlipidemia History Items: Cancer - in brother and sister Review of Systems Constitutional: Reports: Weight Change. Denies: Chills, Fever Eyes: Denies: Blurred vision, Double vision HEENT: Denies: Head Aches, Sinus Congestion, Sinus Drainage Cardiovascular: Reports: Edema, Paroxysmal Noc. Dyspnea Respiratory: Reports: Shortness of Breath Gastrointestinal: Denies: Abdominal Pain, Nausea, Vomiting Genitourinary: Denies: Dysuria Musculoskeletal: Denies: Joint Pain, Joint Tenderness Skin: Denies: Rash, Wounds Neurological: Denies: Numbness, Tingling, Focal weakness Psychiatric: Denies: Anxiety, Depression, Homicidal Ideations, Suicidal Ideations Hematologic/ Lymphatic: Reports: Anemia Patient Problems: Active and Suspected Problems (Last Reviewed 12/11/18 @ 11:55 by Beto Dennis MD) Respiratory failure (Acute) Objective: The patient's most recent lab work, culture data and imaging studies have all been personally reviewed. Respiratory viral panel was negative. - Physical Exam General: Alert, Oriented x3, Cooperative, No apparent distress HEENT: Atraumatic, PERRLA, Normocephalic Oral: No Gingival or Mucosal Lesions/ Ulcerations Neck: Supple, No Nodes, Trachea Midline Lungs: No rhonchi, No rales, Diminished, - - Wheezing with forced expiration over upper airway Cardiovascular: Regular rate, Regular Rhythm, Normal S1, Normal S2 Abdomen: Bowel Sounds Present, Soft, Non Tender, Obese Extremities: No clubbing, No cyanosis, Edema Skin: No breakdown Musculoskeletal: No Muscle Wasting Lymphatic: No Cervical, Supraclavicular, or Inguinal Adenopathy Neurological: Neuro grossly intact Psych/Mental Status: Normal Affect, Appropriate Vital Signs Temp Pulse Resp BP Pulse Ox 96.3 F L 78 16 154/74 H 95 01/13/19 09:20 01/13/19 10:07 01/13/19 10:07 01/13/19 09:20 01/13/19 09:20 Oxygen Flow Rate (L/min) 2 Oxygen Delivery Method Room Air Weight: 192 lb 14.472 oz Body Mass Index (BMI) 33.5 Finger Stick Blood Glucose 257 Intake and Output for Last 24 Hours 01/11/19 01/12/19 01/13/19 23:59 23:59 23:59 Intake Total 1580 / 1580 500 / 740 480 / 480 Output Total 1100 / 1100 500 / 500 1150 / 1150 Balance 480 / 480 0 / 240 -670 / -670 Microbiology Past 72 Hours 01/12/19 12:05 Respiratory Panel (PCR) - Final Mucosa - Nose Laboratory Tests Past 24 Hrs 01/13/19 01/13/19 01/13/19 05:15 05:15 05:15 WBC 11.6 H RBC 4.17 L Hgb 10.6 L Hct 33.7 L MCV 80.8 L MCH 25.4 L MCHC 31.5 L RDW 16.5 H RDW Differential 47.8 H Plt Count 158 MPV 11.2 Immature Gran % (Auto) 0.700 Neut % (Auto) 58.6 Lymph % (Auto) 7.9 L [place] % (Auto) 4.6 Eos % (Auto) 27.9 H Baso % (Auto) 0.3 Absolute Neuts (auto) 6.8 Absolute Lymphs (auto) 0.92 Total Counted Not Reportable Differential Comment SCAN Diff Path Review November foll PT 26.4 H INR 2.4 Sodium 142 Potassium 4.9 Chloride 105 Carbon Dioxide 26.0 Anion Gap 11 BUN 69 H Creatinine 2.59 H Estim Creat Clear Calc 15.05 Est GFR (MDRD) Af Amer 23 L Est GFR (MDRD) Non-Af 19 L BUN/Creatinine Ratio 26.6 H Glucose 168 H Calcium 7.9 L POC Glucose 01/13/19 01/13/19 01/13/19 11:35 06:23 03:29 POC Glucose 118 H 197 H 74 01/12/19 01/12/19 01/12/19 23:26 22:32 17:07 POC Glucose 87 59 L 121 H Clinical Impression(s) from Imaging Studies Chest X-Ray 01/10/19 17:12 IMPRESSION: Negative for new major consolidation, focal atelectasis or a substantial pleural effusion. Interstitial lung markings are probably slightly increased. Stable cardiac size status post prior midline sternotomy for cardiac valve replacement. Electronically Signed: Zoë Cardoza MD at 17:48 EDT , Service support , Chest X-Ray 01/12/19 08:10 IMPRESSION: Blunting of the left costophrenic angle with increased markings at the left lung base suggestive of atelectasis and/or early infiltrate. Electronically Signed: Pierre Hua, at 13:22 EDT , Service support , Assessment/Plan All Active Problems (Last Reviewed 12/11/18 @ 11:55 by Beto Dennis MD) Ulcer of left lower extremity with fat layer exposed (Acute) Respiratory failure (Acute) Wheeze (Acute) Ischemic cerebrovascular accident (CVA) (Resolved) Subdural bleeding (Resolved) RECOMMENDATIONS: 1. Continue attempts at volume optimization with diuretic therapy. 2. Consider placing Sutton catheter to document I's and O's. 3. Continue supplemental oxygen to maintain saturations at or above 90%. 4. Repeat CBC with differential in the morning to follow-up on elevated eosinophil count. 5. Continue systemic anticoagulation. 6. Recommend starting nocturnal CPAP therapy with a pressure support of 11 cm of water. 7. Cardiology consultation. IMPRESSIONS: 1. Acute on chronic hypoxemic respiratory failure Likely secondary to decompensated heart failure. The patient also has known underlying pulmonary hypertension. At this time, I agree with continued attempts at volume optimization with diuretics. I would favor placing a Sutton catheter to document strict I's and O's. The patient appears to have improved from an oxygenation status throughout her hospital course. I would also place a consultation to cardiology so that they can participate in the management of this patient. Continue bronchodilators as ordered. I do not see an indication for systemic corticosteroids at this time. 2. Known obstructive sleep apnea The patient has been noncompliant with nocturnal CPAP therapy. I did call and speak with the patient's DME provider, kevin, who indicated that the patient last got CPAP supplies in 2017. At that time, her prescription was for a CPAP with a pressure support of 11 cm of water. Therefore, I would recommend restarting nocturnal CPAP therapy with a pressure support of 11. 3. Chronic kidney disease Continue current medical management. Nephrology is following. 4. Paroxysmal atrial fibrillation Continue systemic anticoagulation as ordered. 5. Obesity/hypothyroidism/diabetes mellitus/hypertension/hyperlipidemia Complicates care, management, recovery and prognosis. Continue home medications as indicated. This note was generated with [employer] dictation software. It may contain incorrect words, spelling, and punctuation that were not noted in checking the note before signing. Code Visit Inpatient E&M: 75733 Init Hosp L3
--- NOTE | 2019-01-13 15:10 | PCM.PN.REN ---
Patient Problems: Active and Suspected Problems (Last Reviewed 12/11/18 @ 11:55 by Beto Dennis MD) Respiratory failure (Acute) Subjective: SOB + on lasix minimal response - Physical Exam General: Alert, Oriented x3, Cooperative HEENT: Atraumatic, PERRLA, EOMI, Normocephalic Neck: Supple, No JVD, Negative Carotid Bruits Lungs: Clear to auscultation, Normal air movement Cardiovascular: Regular rate, No murmurs Abdomen: Bowel Sounds Present, Soft, Non Tender Extremities: No edema, Capillary Refill Less than 3 Seconds Skin: No rashes, No breakdown Musculoskeletal: No Tenderness to Palpation of Joints or Extremities Neurological: Cranial nerves II-XII grossly intact Psych/Mental Status: Normal Affect, Appropriate Vital Signs Temp Pulse Resp BP Pulse Ox 96.3 F L 78 16 154/74 H 95 01/13/19 09:20 01/13/19 10:07 01/13/19 10:07 01/13/19 09:20 01/13/19 09:20 Oxygen Flow Rate (L/min) 2 Oxygen Delivery Method Room Air Weight: 87.5 kg Body Mass Index (BMI) 33.5 Finger Stick Blood Glucose 257 Intake and Output for Last 24 Hours 01/11/19 01/12/19 01/13/19 23:59 23:59 23:59 Intake Total 1580 / 1580 500 / 740 480 / 480 Output Total 1100 / 1100 500 / 500 1150 / 1150 Balance 480 / 480 0 / 240 -670 / -670 Microbiology Past 72 Hours 01/12/19 12:05 Respiratory Panel (PCR) - Final Mucosa - Nose Laboratory Tests Past 24 Hrs 01/13/19 01/13/19 01/13/19 05:15 05:15 05:15 WBC 11.6 H RBC 4.17 L Hgb 10.6 L Hct 33.7 L MCV 80.8 L MCH 25.4 L MCHC 31.5 L RDW 16.5 H RDW Differential 47.8 H Plt Count 158 MPV 11.2 Immature Gran % (Auto) 0.700 Neut % (Auto) 58.6 Lymph % (Auto) 7.9 L [place] % (Auto) 4.6 Eos % (Auto) 27.9 H Baso % (Auto) 0.3 Absolute Neuts (auto) 6.8 Absolute Lymphs (auto) 0.92 Total Counted Not Reportable Differential Comment SCAN Diff Path Review May foll PT 26.4 H INR 2.4 Sodium 142 Potassium 4.9 Chloride 105 Carbon Dioxide 26.0 Anion Gap 11 BUN 69 H Creatinine 2.59 H Estim Creat Clear Calc 15.05 Est GFR (MDRD) Af Amer 23 L Est GFR (MDRD) Non-Af 19 L BUN/Creatinine Ratio 26.6 H Glucose 168 H Calcium 7.9 L POC Glucose 01/13/19 01/13/19 01/13/19 11:35 06:23 03:29 POC Glucose 118 H 197 H 74 01/12/19 01/12/19 01/12/19 23:26 22:32 17:07 POC Glucose 87 59 L 121 H Medical Necessity - Tobacco Use Smoking Status: Never smoker Assessment/Plan All Active Problems (Last Reviewed 12/11/18 @ 11:55 by Beto Dennis MD) Ulcer of left lower extremity with fat layer exposed (Acute) Respiratory failure (Acute) Wheeze (Acute) Ischemic cerebrovascular accident (CVA) (Resolved) Subdural bleeding (Resolved) 1- 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 from CRS and DNP worsening kidney function is most probably related to cardiorenal syndrome. Creatinine is up to 2.6 mg deciliter. Weight is increasing. on Lasix 80 mg twice a day IV and metolazone 5 mg by mouth daily minimal response start bumex drip 1 mg/hr Please avoid BETZAIDA inhibitor or ARB with diuresis. no need for [employer] Will monitor kidney function with diuresis 2- HTN: BP is well controlled continue same BP meds Avoid ACEI/ARN 3- edema : worsening. I will add metolazone as above low sodium diet of 2000 mg PO daily fluid restriction of 45 oz daily continue daily weight
[2019-01-13] MEDS: Bumetanide 25 MG in CONTAINER,EMPTY 1 BAG 4 MG CONT INF (16:12)
[2019-01-13] MEDS: 0.9% NaCl Peripheral Flush Adult/Peds IV (16:12)
[2019-01-13 16:21] LABS: Bedside Glucose 75 mg/dL (70-110)
[2019-01-13 22:40] LABS: Bedside Glucose 183 mg/dL (70-110)
[2019-01-13] MEDS: Aspirin E.C. 81 MG Tablet PO (22:40)
[2019-01-14] VITALS (9 sets, daily range): BP systolic 113–186; BP diastolic 67–83; PULSE 60–121; RESP 16–18; TEMP 36.6–36.9; O2SAT 92–100
--- NOTE | 2019-01-14 00:23 | CPS ---
pt declines use of cpap. pt doesn't wear cpap at home
[2019-01-14] MEDS: Levothyroxine 88 MCG Tablet PO (05:46)
[2019-01-14 06:08] LABS: International Normalized Ratio 2.1; Prothrombin Time (Protime)PT. 23.8 SECONDS (11.7-14.9)
[2019-01-14 06:21] LABS: Anion Gap 10 (5-15); BUN 67 mg/dL (7-18); BUN/Creat Ratio 27.7 RATIO (10-20); Calcium,Total 8.7 mg/dL (8.5-10.1); Chloride 99 mmol/L (98-107); Creatinine, Serum 2.42 mg/dL (0.55-1.02); EST Glomerular Filtration Rate 21 mL/min (>60); Est Glom Filt Rate - Afr Amer 25 mL/min (>60); Glucose 129 mg/dL (74-106); Sodium Level 141 mmol/L (136-145)
[2019-01-14] MEDS: Ipratropium/Albuterol Sulfate 3 ML AMPUL.NEB INHALATION (06:53)
[2019-01-14] MEDS: Budesonide Respules 0.5 MG/2 ML AMPUL.NEB. INHALATION (06:53)
[2019-01-14 07:06] LABS: Bedside Glucose 143 mg/dL (70-110)
[2019-01-14] MEDS: metOLazone 5 MG Tablet PO (08:56)
[2019-01-14] MEDS: Amiodarone 200 MG Tablet 100 MG PO (08:56)
[2019-01-14] MEDS: Multivitamins,Ther W-Minerals Tablet 1 TABLET PO (08:59)
[2019-01-14] MEDS: guaiFENesin 1,200 MG Tablet 1200 MG PO ×2 (08:59→21:24)
[2019-01-14] MEDS: Loratadine 10 MG Tablet PO (08:59)
[2019-01-14] MEDS: Insulin Lispro 100 UNIT/ML INSULN.PEN 8 UNIT SC ×3 (09:00→16:41)
[2019-01-14 09:13] LABS: Absolute Lymphocyte Count 1.17 X10^3/ul (0.83-4.51); Absolute Neutrophil Count 7.8 X10^3/uL (2.0-7.7); Basophil# 0.05 X10^3/uL; Basophil% 0.3 % (0-1); Eosinophil# 4.64 X10^3/uL; Eosinophils% 31.8 % (0-5); Hematocrit 36.6 % (37-47); Hemoglobin 11.5 g/dl (12.0-15.0); Lymphocyte # 1.17 X10^3/ul (4.0); Mean Corp Hgb Conc 31.4 g/gl (32-36); Mean Corpuscular Hgb 25.2 pg (27.0-32.0); Mean Corpuscular Volume 80.1 fL (81-99); Mean Platelet Vol. 11.1 fl (6.2-12.0); Monocyte% 5.5 % (0-10); Neutrophil # 7.82 X10^3/uL (2.7-7.7); Neutrophil % 53.5 % (47-70); Platelet Count 189 K/mm3 (150-450); RBC Distribution Width CV 16.6 % (11.6-14.6); RBC Distribution Width SD 48.2 fl (35.1-43.9); Red Blood Count 4.57 M/mm3 (4.2-5.4); White Blood Count 14.6 K/mm3 (4.4-11.0)
[2019-01-14 09:14] LABS: Differential Indicated SCAN CRITERIA MET; Magnesium 2.4 mg/dL (1.6-2.6); POSITIVE COUNT NO; POSITIVE DIFFERENTIAL YES; POSITIVE MORPHOLOGY NO; Phosphorus 3.4 mg/dL (2.5-4.9)
--- NOTE | 2019-01-14 09:55 | PN_ITS ---
Patient Problems: Active and Suspected Problems (Last Reviewed 12/11/18 @ 11:55 by Beto Dennis MD) Respiratory failure (Acute) Subjective: The patient was seen and examined at the bedside this morning. Events from the last 24 hours have been reviewed. The patient is currently afebrile, hemodynamically stable and maintaining appropriate oxygen saturations on [1]. Orders for nocturnal CPAP therapy were placed yesterday. However, patient subsequently refused nocturnal Pap therapy when approached by respiratory therapy. She reported to me this morning that she is not interested in using CPAP while admitted to the hospital. She also stated that the aerosol treatments that she is currently receiving on a scheduled basis do little to help her symptomatically. Therefore, she is requesting that they be discontinued. Objective: The patient's most recent lab work, culture data and imaging studies have all been personally reviewed. - Physical Exam General: Alert, Cooperative, No apparent distress, - - Sitting in bedside recliner. HEENT: Atraumatic, PERRLA, Normocephalic Oral: No Gingival or Mucosal Lesions/ Ulcerations Neck: Supple, No Nodes, Trachea Midline Lungs: No rhonchi, No wheeze, No rales, Diminished Cardiovascular: Regular rate, Regular Rhythm, Normal S1, Normal S2 Abdomen: Bowel Sounds Present, Soft, Non Tender, Obese Extremities: No clubbing, No cyanosis, Edema Skin: - - No significant change from previous. Musculoskeletal: No Tenderness to Palpation of Joints or Extremities Lymphatic: No Cervical, Supraclavicular, or Inguinal Adenopathy Neurological: Cranial nerves II-XII grossly intact, Neuro grossly intact Psych/Mental Status: Alert and oriented to time, place, person, mood and affect Vital Signs Temp Pulse Resp BP Pulse Ox 98.4 F 121 H 18 113/72 98 01/14/19 09:03 01/14/19 09:03 01/14/19 09:03 01/14/19 09:03 01/14/19 09:03 Oxygen Flow Rate (L/min) 2 Oxygen Delivery Method Room Air Weight: 182 lb 5.156 oz Body Mass Index (BMI) 33.5 Finger Stick Blood Glucose 257 Intake and Output for Last 24 Hours 01/12/19 01/13/19 01/14/19 23:59 23:59 23:59 Intake Total 500 / 740 977.0 / 977.0 294 / 294 Output Total 500 / 500 5875 / 5875 3100 / 3100 Balance 0 / 240 -4898.0 / -4898.0 -2806 / -2806 Microbiology Past 72 Hours 01/12/19 12:05 Respiratory Panel (PCR) - Final Mucosa - Nose Laboratory Tests Past 24 Hrs 01/14/19 01/14/19 01/14/19 05:18 05:18 05:18 WBC 14.6 H RBC 4.57 Hgb 11.5 L Hct 36.6 L MCV 80.1 L MCH 25.2 L MCHC 31.4 L RDW 16.6 H RDW Differential 48.2 H Plt Count 189 MPV 11.1 Immature Gran % (Auto) 0.900 Neut % (Auto) 53.5 Lymph % (Auto) 8.0 L [place] % (Auto) 5.5 Eos % (Auto) 31.8 H Baso % (Auto) 0.3 Absolute Neuts (auto) 7.8 H Absolute Lymphs (auto) 1.17 Total Counted Pending PT 23.8 H INR 2.1 Sodium 141 Potassium 4.0 Chloride 99 Carbon Dioxide 32.0 Anion Gap 10 BUN 67 H Creatinine 2.42 H Estim Creat Clear Calc 16.10 Est GFR (MDRD) Af Amer 25 L Est GFR (MDRD) Non-Af 21 L BUN/Creatinine Ratio 27.7 H Glucose 129 H Calcium 8.7 Phosphorus Magnesium 01/14/19 05:18 WBC RBC Hgb Hct MCV MCH MCHC RDW RDW Differential Plt Count MPV Immature Gran % (Auto) Neut % (Auto) Lymph % (Auto) [place] % (Auto) Eos % (Auto) Baso % (Auto) Absolute Neuts (auto) Absolute Lymphs (auto) Total Counted PT INR Sodium Potassium Chloride Carbon Dioxide Anion Gap BUN Creatinine Estim Creat Clear Calc Est GFR (MDRD) Af Amer Est GFR (MDRD) Non-Af BUN/Creatinine Ratio Glucose Calcium Phosphorus 3.4 Magnesium 2.4 POC Glucose 01/14/19 01/13/19 01/13/19 06:52 22:32 16:15 POC Glucose 143 H 183 H 75 01/13/19 11:35 POC Glucose 118 H Clinical Impression(s) from Imaging Studies Chest X-Ray 01/10/19 17:12 IMPRESSION: Negative for new major consolidation, focal atelectasis or a substantial pleural effusion. Interstitial lung markings are probably slightly increased. Stable cardiac size status post prior midline sternotomy for cardiac valve replacement. Electronically Signed: Zoë Cardoza MD at 17:48 EDT , Service support , Chest X-Ray 01/12/19 08:10 IMPRESSION: Blunting of the left costophrenic angle with increased markings at the left lung base suggestive of atelectasis and/or early infiltrate. Electronically Signed: Pierre Javid, at 13:22 EDT , Service support , Medical Necessity - Tobacco Use Smoking Status: Never smoker Assessment/Plan All Active Problems (Last Reviewed 12/11/18 @ 11:55 by Beto Dennis MD) Ulcer of left lower extremity with fat layer exposed (Acute) Respiratory failure (Acute) Wheeze (Acute) Ischemic cerebrovascular accident (CVA) (Resolved) Subdural bleeding (Resolved) RECOMMENDATIONS: 1. Continue attempts at volume optimization with diuretic therapy. 2. Continue systemic anticoagulation. 3. Continue nocturnal CPAP therapy with a pressure support of 11 cm of water. 4. Recommend cardiology consultation. IMPRESSIONS: 1. Acute on chronic hypoxemic respiratory failure Likely secondary to decompensated heart failure. The patient also has known underlying pulmonary hypertension. At this time, I agree with continued attempts at volume optimization with diuretics. A Sutton catheter has been placed to document strict I's and O's. The patient appears to have improved from an oxygenation status throughout her hospital course. I would also place a consultation to cardiology so that they can participate in the management of this patient. We will discontinue bronchodilators, per patient request. I do not see an indication for systemic corticosteroids at this time. 2. Known obstructive sleep apnea The patient has been noncompliant with nocturnal CPAP therapy. I did call and speak with the patient's DME provider, kevin, who indicated that the patient last got CPAP supplies in 2017. At that time, her prescription was for a CPAP with a pressure support of 11 cm of water. Therefore, I would recommend continuing nocturnal CPAP therapy with a pressure support of 11. However, the patient has been refusing to utilize the aforementioned therapy as requested. 3. Chronic kidney disease Continue current medical management. Nephrology is following. 4. Paroxysmal atrial fibrillation Continue systemic anticoagulation as ordered. 5. Obesity/hypothyroidism/diabetes mellitus/hypertension/hyperlipidemia Complicates care, management, recovery and prognosis. Continue home medications as indicated. This note was generated with [employer] dictation software. It may contain incorrect words, spelling, and punctuation that were not noted in checking the note before signing. Code Visit Inpatient E&M: 46041 Subs Hosp L2
[2019-01-14 09:56] LABS: Pathologist Review Reviewed
[2019-01-14 11:25] LABS: Bedside Glucose 227 mg/dL (70-110)
[2019-01-14] MEDS: Insulin Lispro 100 UNIT/ML INSULN.PEN SQ ×3 (11:42→21:25)
--- NOTE | 2019-01-14 12:11 | PCM.PN.REN ---
Patient Problems: Active and Suspected Problems (Last Reviewed 12/11/18 @ 11:55 by Beto Dennis MD) Respiratory failure (Acute) Subjective: responded well with bumex drip negative 7 L 10 lb weight loss - Physical Exam General: Alert, Oriented x3, Cooperative HEENT: Atraumatic, PERRLA, EOMI, Normocephalic Neck: Supple, No JVD, Negative Carotid Bruits Lungs: Clear to auscultation, Normal air movement Cardiovascular: Regular rate, No murmurs Abdomen: Bowel Sounds Present, Soft, Non Tender Extremities: No edema, Capillary Refill Less than 3 Seconds Skin: No rashes, No breakdown Musculoskeletal: No Tenderness to Palpation of Joints or Extremities Neurological: Cranial nerves II-XII grossly intact Psych/Mental Status: Normal Affect, Appropriate Vital Signs Temp Pulse Resp BP Pulse Ox 98.4 F 67 18 113/72 98 01/14/19 09:03 01/14/19 10:27 01/14/19 09:03 01/14/19 09:03 01/14/19 09:03 Oxygen Flow Rate (L/min) 2 Oxygen Delivery Method Room Air Weight: 82.7 kg Body Mass Index (BMI) 33.5 Finger Stick Blood Glucose 257 Intake and Output for Last 24 Hours 01/12/19 01/13/19 01/14/19 23:59 23:59 23:59 Intake Total 500 / 740 977.0 / 977.0 792 / 792 Output Total 500 / 500 5875 / 5875 5125 / 5125 Balance 0 / 240 -4898.0 / -4898.0 -4333 / -4333 Microbiology Past 72 Hours 01/12/19 12:05 Respiratory Panel (PCR) - Final Mucosa - Nose Laboratory Tests Past 24 Hrs 01/13/19 01/14/19 01/14/19 05:15 05:18 05:18 WBC RBC Hgb Hct MCV MCH MCHC RDW RDW Differential Plt Count MPV Immature Gran % (Auto) Neut % (Auto) Lymph % (Auto) [place] % (Auto) Eos % (Auto) Baso % (Auto) Absolute Neuts (auto) Absolute Lymphs (auto) Total Counted Differential Comment Diff Path Review Reviewed PT 23.8 H INR 2.1 Sodium 141 Potassium 4.0 Chloride 99 Carbon Dioxide 32.0 Anion Gap 10 BUN 67 H Creatinine 2.42 H Estim Creat Clear Calc 16.10 Est GFR (MDRD) Af Amer 25 L Est GFR (MDRD) Non-Af 21 L BUN/Creatinine Ratio 27.7 H Glucose 129 H Calcium 8.7 Phosphorus Magnesium 01/14/19 01/14/19 05:18 05:18 WBC 14.6 H RBC 4.57 Hgb 11.5 L Hct 36.6 L MCV 80.1 L MCH 25.2 L MCHC 31.4 L RDW 16.6 H RDW Differential 48.2 H Plt Count 189 MPV 11.1 Immature Gran % (Auto) 0.900 Neut % (Auto) 53.5 Lymph % (Auto) 8.0 L [place] % (Auto) 5.5 Eos % (Auto) 31.8 H Baso % (Auto) 0.3 Absolute Neuts (auto) 7.8 H Absolute Lymphs (auto) 1.17 Total Counted Not Reportable Differential Comment Diff Path Review PT INR Sodium Potassium Chloride Carbon Dioxide Anion Gap BUN Creatinine Estim Creat Clear Calc Est GFR (MDRD) Af Amer Est GFR (MDRD) Non-Af BUN/Creatinine Ratio Glucose Calcium Phosphorus 3.4 Magnesium 2.4 POC Glucose 01/14/19 01/14/19 01/13/19 11:06 06:52 22:32 POC Glucose 227 H 143 H 183 H 01/13/19 16:15 POC Glucose 75 Medical Necessity - Tobacco Use Smoking Status: Never smoker Assessment/Plan All Active Problems (Last Reviewed 12/11/18 @ 11:55 by Beto Dennis MD) Ulcer of left lower extremity with fat layer exposed (Acute) Respiratory failure (Acute) Wheeze (Acute) Ischemic cerebrovascular accident (CVA) (Resolved) Subdural bleeding (Resolved) 1- 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 from CRS and DNP worsening kidney function is most probably related to cardiorenal syndrome. Responded on bumex drip solute plateau creatinine will increase for 72 hrs continue bumex drip for another 24 hrs continue Zaroxlyn Please avoid BETZAIDA inhibitor or ARB with diuresis. no need for TROUBLE CLERK Will monitor kidney function with diuresis 2- HTN: BP is well controlled continue same BP meds Avoid ACEI/ARN 3- edema : worsening. I will add metolazone as above low sodium diet of 2000 mg PO daily fluid restriction of 45 oz daily continue daily weight
--- NOTE | 2019-01-14 12:40 | PN_ITS ---
<Lisha Meneses - Last Filed: 01/14/19 13:05> Patient Problems: Active and Suspected Problems (Last Reviewed 12/11/18 @ 11:55 by Beto Dennis MD) Respiratory failure (Acute) Subjective: Patient seen and examined. Tearful, reports she feels depressed. Complains of generalized muscle aching and states she did not sleep well last night. Breathing improved. - Physical Exam General: Alert, Oriented x3, Cooperative HEENT: Atraumatic, PERRLA, EOMI, Normocephalic Oral: Dry Mucosa Neck: Supple, No JVD, Negative Carotid Bruits Lungs: Clear to auscultation, Diminished Cardiovascular: Regular rate, Regular Rhythm, Normal S1, Normal S2, No murmurs Abdomen: Bowel Sounds Present, Soft, Non Tender, Non-Distended Extremities: No clubbing, No cyanosis, Capillary Refill Less than 3 Seconds, Edema - Bilateral lower extremities Skin: No rashes, No breakdown Musculoskeletal: No Tenderness to Palpation of Joints or Extremities Neurological: Cranial nerves II-XII grossly intact, Neuro grossly intact Psych/Mental Status: Normal Affect, Appropriate Vital Signs Temp Pulse Resp BP Pulse Ox 98.4 F 67 18 113/72 98 01/14/19 09:03 01/14/19 10:27 01/14/19 09:03 01/14/19 09:03 01/14/19 09:03 Oxygen Flow Rate (L/min) 2 Oxygen Delivery Method Room Air Weight: 182 lb 5.156 oz Body Mass Index (BMI) 33.5 Finger Stick Blood Glucose 257 Intake and Output for Last 24 Hours 01/12/19 01/13/19 01/14/19 23:59 23:59 23:59 Intake Total 500 / 740 977.0 / 977.0 792 / 792 Output Total 500 / 500 5875 / 5875 5125 / 5125 Balance 0 / 240 -4898.0 / -4898.0 -4333 / -4333 Microbiology Past 72 Hours 01/12/19 12:05 Respiratory Panel (PCR) - Final Mucosa - Nose Laboratory Tests Past 24 Hrs 01/13/19 01/14/19 01/14/19 05:15 05:18 05:18 WBC RBC Hgb Hct MCV MCH MCHC RDW RDW Differential Plt Count MPV Immature Gran % (Auto) Neut % (Auto) Lymph % (Auto) [place] % (Auto) Eos % (Auto) Baso % (Auto) Absolute Neuts (auto) Absolute Lymphs (auto) Total Counted Differential Comment Diff Path Review Reviewed PT 23.8 H INR 2.1 Sodium 141 Potassium 4.0 Chloride 99 Carbon Dioxide 32.0 Anion Gap 10 BUN 67 H Creatinine 2.42 H Estim Creat Clear Calc 16.10 Est GFR (MDRD) Af Amer 25 L Est GFR (MDRD) Non-Af 21 L BUN/Creatinine Ratio 27.7 H Glucose 129 H Calcium 8.7 Phosphorus Magnesium 01/14/19 01/14/19 05:18 05:18 WBC 14.6 H RBC 4.57 Hgb 11.5 L Hct 36.6 L MCV 80.1 L MCH 25.2 L MCHC 31.4 L RDW 16.6 H RDW Differential 48.2 H Plt Count 189 MPV 11.1 Immature Gran % (Auto) 0.900 Neut % (Auto) 53.5 Lymph % (Auto) 8.0 L [place] % (Auto) 5.5 Eos % (Auto) 31.8 H Baso % (Auto) 0.3 Absolute Neuts (auto) 7.8 H Absolute Lymphs (auto) 1.17 Total Counted Not Reportable Differential Comment Diff Path Review PT INR Sodium Potassium Chloride Carbon Dioxide Anion Gap BUN Creatinine Estim Creat Clear Calc Est GFR (MDRD) Af Amer Est GFR (MDRD) Non-Af BUN/Creatinine Ratio Glucose Calcium Phosphorus 3.4 Magnesium 2.4 POC Glucose 01/14/19 01/14/19 01/13/19 11:06 06:52 22:32 POC Glucose 227 H 143 H 183 H 01/13/19 16:15 POC Glucose 75 Medical Necessity - Tobacco Use Smoking Status: Never smoker Assessment/Plan All Active Problems (Last Reviewed 12/11/18 @ 11:55 by Beto Dennis MD) Ulcer of left lower extremity with fat layer exposed (Acute) Respiratory failure (Acute) Wheeze (Acute) Ischemic cerebrovascular accident (CVA) (Resolved) Subdural bleeding (Resolved) 1. Acute on chronic hypoxic respiratory failure secondary to acute on chronic diastolic CHF-patient chronically wears 2 L nasal cannula at bedtime and as needed. Continue supplement oxygen to maintain O2 at or above 90%. Initially on BiPAP on admission. Oxygen now stable on room air. 2. Acute on chronic diastolic CHF-echocardiogram with EF 65%, mild to moderate tricuspid valve insufficiency, mild to moderate pulmonic valve insufficiency, RVSP estimated to be 72 mmHg. Strict I&O. Daily weight. Bumex drip decreased to 0.5 mg. Patient previously on Lasix 40 mg twice daily and reports 20 pound weight gain while on this regimen. Fluid restriction. Continue Bumex drip for another 24 hours per nephrology. Anticipate transition to oral tomorrow. -10 pounds since admission. -7L. 3. Chronic COPD-no acute exacerbation. As needed albuterol aerosol. 4. CAD status post CABG-continue aspirin, Not on statin. 5. Type 2 diabetes [id number] AC at bedtime with sliding scale insulin. Continue long-acting regimen. 6. Paroxysmal atrial fibrillation-continue amiodarone, Coumadin. 7. Hypertension-stable, losartan on hold due to kidney function. 8. Chronic kidney disease stage IV-follows with Dr. Ulloa. Baseline creatinine 1.9-2.5. Creatinine at baseline. No evidence of HERNAN. Nephrology following. 9. Status post mitral valve replacement with bioprosthetic valve-stable per echo as noted above. 10. Hypothyroidism-continue Synthroid regimen. 11. Chronic foot diabetic wounds/ulcerations-left heel, left superior foot, and right great toe ulcerations, present on admission. Wound RN consult. Dressing changes per wound RN orders. 12. MAGALI-noncompliant with CPAP regimen. Encouraged CPAP use. DVT prophylaxis-Coumadin This patient was seen by JOSE ANGEL Null under the supervision of Dr. Gomez. <Dilshad Gomez - Last Filed: 01/14/19 16:50> Subjective: Patient had good response with IV Bumex drip. Had about 5 L of diuresis yesterday. Creatinine improved to 2.42. Overall patient lost about 10 pounds. Patient complained of muscle pain, dryness of his skin. - Physical Exam General: Alert, Oriented x3, Cooperative HEENT: Atraumatic, PERRLA, EOMI, Normocephalic Neck: Supple, No JVD, Negative Carotid Bruits Lungs: Clear to auscultation, Diminished Cardiovascular: Regular rate, Regular Rhythm, Normal S1, Normal S2, Murmur - Systolic murmur present over left lower sternal border. Abdomen: Bowel Sounds Present, Soft, Non Tender Extremities: Edema - Edema. Her bilateral thigh and knees, improving. Bilateral lower extremities Skin: No rashes, No breakdown Musculoskeletal: No Tenderness to Palpation of Joints or Extremities, Arthritic Changes Neurological: Cranial nerves II-XII grossly intact, Deep Tendon Reflexes 2+/4 and Symmetrical, Neuro grossly intact Psych/Mental Status: Normal Affect, Appropriate Vital Signs Temp Pulse Resp BP Pulse Ox 98.3 F 67 18 173/67 H 97 01/14/19 15:15 01/14/19 15:50 01/14/19 15:15 01/14/19 15:15 01/14/19 15:15 Oxygen Flow Rate (L/min) 2 Oxygen Delivery Method Room Air Weight: 182 lb 5.156 oz Body Mass Index (BMI) 33.5 Finger Stick Blood Glucose 257 Intake and Output for Last 24 Hours 01/12/19 01/13/19 01/14/19 23:59 23:59 23:59 Intake Total 500 / 740 977.0 / 977.0 792 / 792 Output Total 500 / 500 5875 / 5875 5125 / 5125 Balance 0 / 240 -4898.0 / -4898.0 -4333 / -4333 Microbiology Past 72 Hours 01/12/19 12:05 Respiratory Panel (PCR) - Final Mucosa - Nose Laboratory Tests Past 24 Hrs 01/13/19 01/14/19 01/14/19 05:15 05:18 05:18 WBC RBC Hgb Hct MCV MCH MCHC RDW RDW Differential Plt Count MPV Immature Gran % (Auto) Neut % (Auto) Lymph % (Auto) [place] % (Auto) Eos % (Auto) Baso % (Auto) Absolute Neuts (auto) Absolute Lymphs (auto) Total Counted Differential Comment Diff Path Review Reviewed PT 23.8 H INR 2.1 Sodium 141 Potassium 4.0 Chloride 99 Carbon Dioxide 32.0 Anion Gap 10 BUN 67 H Creatinine 2.42 H Estim Creat Clear Calc 16.10 Est GFR (MDRD) Af Amer 25 L Est GFR (MDRD) Non-Af 21 L BUN/Creatinine Ratio 27.7 H Glucose 129 H Calcium 8.7 Phosphorus Magnesium 01/14/19 01/14/19 05:18 05:18 WBC 14.6 H RBC 4.57 Hgb 11.5 L Hct 36.6 L MCV 80.1 L MCH 25.2 L MCHC 31.4 L RDW 16.6 H RDW Differential 48.2 H Plt Count 189 MPV 11.1 Immature Gran % (Auto) 0.900 Neut % (Auto) 53.5 Lymph % (Auto) 8.0 L [place] % (Auto) 5.5 Eos % (Auto) 31.8 H Baso % (Auto) 0.3 Absolute Neuts (auto) 7.8 H Absolute Lymphs (auto) 1.17 Total Counted Not Reportable Differential Comment Diff Path Review PT INR Sodium Potassium Chloride Carbon Dioxide Anion Gap BUN Creatinine Estim Creat Clear Calc Est GFR (MDRD) Af Amer Est GFR (MDRD) Non-Af BUN/Creatinine Ratio Glucose Calcium Phosphorus 3.4 Magnesium 2.4 POC Glucose 01/14/19 01/14/19 01/14/19 16:34 11:06 06:52 POC Glucose 152 H 227 H 143 H 01/13/19 22:32 POC Glucose 183 H Assessment/Plan This patient was seen in conjunction with Lisha BUCK. I have independently interviewed and examined the patient and reviewed pertinent history, examination findings, laboratory and plan of management. I have reviewed the note and agree with the documented findings with the few additional points. In brief, patient is admitted for shortness of breath, bilateral lower extremity swelling feeling of generalized weakness and dyspnea. Was found to have acute on chronic hypoxic respiratory failure secondary to right ventricular failure and pulmonary hypertension. Patient had about 7 L negative fluid balance after starting on IV Bumex drip. Bumex drip was decreased to 0.5 mg/h. Engineering Recruiter recommended to continue Bumex drip for another 24 hours. Patient also has obstructive sleep apnea but noncompliant to CPAP. Pulmonary consult appreciated. Patient also has eosinophilia, etiology unclear. Patient has chronic diabetic foot ulcer on left heel, right great toe ulcer, present on admission. Being followed by wound care nurse. I have discussed my assessment with Lisha BUCK and orders have been reviewed. Code Visit Inpatient E&M: 62327 Subs Hosp L3
[2019-01-14] MEDS: Acetaminophen 500 MG Tablet 1000 MG PO ×2 (15:14→21:24)
[2019-01-14 16:46] LABS: Bedside Glucose 152 mg/dL (70-110)
[2019-01-14] MEDS: Bumetanide 12.5 MG in CONTAINER,EMPTY 1 BAG 2 MG CONT INF (20:32)
[2019-01-14] MEDS: Aspirin E.C. 81 MG Tablet PO (21:24)
[2019-01-14 21:35] LABS: Bedside Glucose 190 mg/dL (70-110)
[2019-01-15] VITALS (12 sets, daily range): BP systolic 140–156; BP diastolic 60–75; PULSE 55–68; RESP 16–18; TEMP 36.1–36.9; O2SAT 94–98
[2019-01-15 06:33] LABS: International Normalized Ratio 1.9; Prothrombin Time (Protime)PT. 21.3 SECONDS (11.7-14.9)
[2019-01-15] MEDS: Acetaminophen 500 MG Tablet 1000 MG PO ×3 (06:40→21:53)
[2019-01-15 06:41] LABS: Anion Gap 4 (5-15); BUN 74 mg/dL (7-18); BUN/Creat Ratio 31.4 RATIO (10-20); Calcium,Total 8.8 mg/dL (8.5-10.1); Chloride 94 mmol/L (98-107); Creatinine, Serum 2.36 mg/dL (0.55-1.02); EST Glomerular Filtration Rate 21 mL/min (>60); Est Glom Filt Rate - Afr Amer 26 mL/min (>60); Estimated Creatinine Clearance 16.51 ml/min; Glucose 138 mg/dL (74-106); Potassium 3.9 mmol/L (3.5-5.1); Sodium Level 135 mmol/L (136-145)
[2019-01-15] MEDS: Levothyroxine 88 MCG Tablet PO (06:41)
[2019-01-15 06:50] LABS: Bedside Glucose 166 mg/dL (70-110)
[2019-01-15] MEDS: Insulin Lispro 100 UNIT/ML INSULN.PEN SQ ×4 (07:52→21:52)
[2019-01-15] MEDS: Insulin Lispro 100 UNIT/ML INSULN.PEN 8 UNIT SC ×3 (07:52→16:55)
[2019-01-15] MEDS: Amiodarone 200 MG Tablet 100 MG PO (07:53)
[2019-01-15] MEDS: metOLazone 5 MG Tablet PO (08:00)
[2019-01-15] MEDS: guaiFENesin 1,200 MG Tablet 1200 MG PO ×2 (08:00→21:56)
[2019-01-15] MEDS: Calcitriol 0.25 MCG Capsule PO (08:00)
[2019-01-15] MEDS: Multivitamins,Ther W-Minerals Tablet 1 TABLET PO (08:00)
[2019-01-15] MEDS: Loratadine 10 MG Tablet PO (08:00)
--- NOTE | 2019-01-15 10:31 | PCM.PN.REN ---
Patient Problems: Active and Suspected Problems (Last Reviewed 12/11/18 @ 11:55 by Beto Dennis MD) Respiratory failure (Acute) Subjective: Good diuresis Complains of generalized muscle aching and states she did not sleep well last night. Breathing improved. - Physical Exam General: Alert, Oriented x3, Cooperative HEENT: Atraumatic, PERRLA, EOMI, Normocephalic Neck: Supple, No JVD, Negative Carotid Bruits Lungs: Clear to auscultation, Normal air movement Cardiovascular: Regular rate, No murmurs Abdomen: Bowel Sounds Present, Soft, Non Tender Extremities: No edema, Capillary Refill Less than 3 Seconds Skin: No rashes, No breakdown Musculoskeletal: No Tenderness to Palpation of Joints or Extremities Neurological: Cranial nerves II-XII grossly intact Psych/Mental Status: Normal Affect, Appropriate Vital Signs Temp Pulse Resp BP Pulse Ox 98.3 F 58 L 16 140/62 H 98 01/15/19 09:00 01/15/19 09:00 01/15/19 09:00 01/15/19 09:00 01/15/19 09:00 Oxygen Flow Rate (L/min) 2 Oxygen Delivery Method Room Air Weight: 79.2 kg Body Mass Index (BMI) 33.5 Finger Stick Blood Glucose 257 Intake and Output for Last 24 Hours 01/13/19 01/14/19 01/15/19 23:59 23:59 23:59 Intake Total 977.0 / 977.0 1018 / 1177.6 322.9 / 322.9 Output Total 5875 / 5875 6202 / 7402 2450 / 2450 Balance -4898.0 / -4898.0 -5184 / -6224.4 -2127.1 / -2127.1 Microbiology Past 72 Hours 01/12/19 12:05 Respiratory Panel (PCR) - Final Mucosa - Nose Laboratory Tests Past 24 Hrs 01/15/19 01/15/19 05:22 05:54 PT 21.3 H INR 1.9 Sodium 135 L Potassium 3.9 Chloride 94 L Carbon Dioxide 37.0 H Anion Gap 4 L BUN 74 H Creatinine 2.36 H Estim Creat Clear Calc 16.51 Est GFR (MDRD) Af Amer 26 L Est GFR (MDRD) Non-Af 21 L BUN/Creatinine Ratio 31.4 H Glucose 138 H Calcium 8.8 POC Glucose 01/15/19 01/14/19 01/14/19 06:39 21:22 16:34 POC Glucose 166 H 190 H 152 H 01/14/19 11:06 POC Glucose 227 H Medical Necessity - Tobacco Use Smoking Status: Never smoker Assessment/Plan All Active Problems (Last Reviewed 12/11/18 @ 11:55 by Beto Dennis MD) Ulcer of left lower extremity with fat layer exposed (Acute) Respiratory failure (Acute) Wheeze (Acute) Ischemic cerebrovascular accident (CVA) (Resolved) Subdural bleeding (Resolved) 1- 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 from CRS and DNP worsening kidney function is most probably related to cardiorenal syndrome. Responded on bumex drip solute plateau creatinine will increase for 72 hrs discontinue bumex drip change bumex 2mg IVQ8 continue Zaroxlyn Please avoid BETZAIDA inhibitor or ARB with diuresis. no need for MAINTENANCE MECHANIC HELPER Will monitor kidney function with diuresis 2- HTN: BP is well controlled continue same BP meds Avoid ACEI/ARN 3- edema : worsening. I will add metolazone as above low sodium diet of 2000 mg PO daily fluid restriction of 45 oz daily continue daily weight
--- NOTE | 2019-01-15 11:16 | PN_ITS ---
Patient Problems: Active and Suspected Problems (Last Reviewed 12/11/18 @ 11:55 by Beto Dennis MD) Respiratory failure (Acute) Subjective: The patient was seen and examined at the bedside this morning. Events from the last 24 hours have been reviewed. The patient is currently afebrile, hemodynamically stable and maintaining appropriate oxygen saturations on room air. The patient was once again noted to have diuresed 5 L yesterday. She is now documented to be overall net -11.7 L for the admission. Breathing quality has improved. Objective: The patient's most recent lab work, culture data and imaging studies have all been personally reviewed. - Physical Exam General: Alert, Cooperative, No apparent distress HEENT: Atraumatic, PERRLA, Normocephalic Oral: No Gingival or Mucosal Lesions/ Ulcerations Neck: Supple, No Nodes, Trachea Midline Lungs: No rhonchi, No wheeze, No rales, Diminished Cardiovascular: Regular rate, Regular Rhythm, Normal S1, Normal S2 Abdomen: Bowel Sounds Present, Soft, Non Tender, Obese Extremities: No clubbing, No cyanosis, - - Improving lower extremity edema Skin: - - No significant change from previous Musculoskeletal: No Tenderness to Palpation of Joints or Extremities, No Muscle Wasting Lymphatic: No Cervical, Supraclavicular, or Inguinal Adenopathy Neurological: Cranial nerves II-XII grossly intact, Neuro grossly intact Psych/Mental Status: Alert and oriented to time, place, person, mood and affect Vital Signs Temp Pulse Resp BP Pulse Ox 98.3 F 58 L 16 140/62 H 98 01/15/19 09:00 01/15/19 09:00 01/15/19 09:00 01/15/19 09:00 01/15/19 09:00 Oxygen Flow Rate (L/min) 2 Oxygen Delivery Method Room Air Weight: 174 lb 9.698 oz Body Mass Index (BMI) 33.5 Finger Stick Blood Glucose 257 Intake and Output for Last 24 Hours 01/13/19 01/14/19 01/15/19 23:59 23:59 23:59 Intake Total 977.0 / 977.0 1018 / 1177.6 322.9 / 322.9 Output Total 5875 / 5875 6202 / 7402 2450 / 2450 Balance -4898.0 / -4898.0 -5184 / -6224.4 -2127.1 / -2127.1 Microbiology Past 72 Hours 01/12/19 12:05 Respiratory Panel (PCR) - Final Mucosa - Nose Laboratory Tests Past 24 Hrs 01/15/19 01/15/19 05:22 05:54 PT 21.3 H INR 1.9 Sodium 135 L Potassium 3.9 Chloride 94 L Carbon Dioxide 37.0 H Anion Gap 4 L BUN 74 H Creatinine 2.36 H Estim Creat Clear Calc 16.51 Est GFR (MDRD) Af Amer 26 L Est GFR (MDRD) Non-Af 21 L BUN/Creatinine Ratio 31.4 H Glucose 138 H Calcium 8.8 POC Glucose 01/15/19 01/14/19 01/14/19 06:39 21:22 16:34 POC Glucose 166 H 190 H 152 H 01/14/19 11:06 POC Glucose 227 H Clinical Impression(s) from Imaging Studies Chest X-Ray 01/10/19 17:12 IMPRESSION: Negative for new major consolidation, focal atelectasis or a substantial pleural effusion. Interstitial lung markings are probably slightly increased. Stable cardiac size status post prior midline sternotomy for cardiac valve replacement. Electronically Signed: Zoë Cardoza MD at 17:48 EDT , Service support , Chest X-Ray 01/12/19 08:10 IMPRESSION: Blunting of the left costophrenic angle with increased markings at the left lung base suggestive of atelectasis and/or early infiltrate. Electronically Signed: Pierre Hua, at 13:22 EDT , Service support , Medical Necessity - Tobacco Use Smoking Status: Never smoker Assessment/Plan All Active Problems (Last Reviewed 12/11/18 @ 11:55 by Beto Dennis MD) Ulcer of left lower extremity with fat layer exposed (Acute) Respiratory failure (Acute) Wheeze (Acute) Ischemic cerebrovascular accident (CVA) (Resolved) Subdural bleeding (Resolved) RECOMMENDATIONS: 1. Continue diuretic therapy. 2. Continue systemic anticoagulation. 3. Continue nocturnal CPAP therapy with a pressure support of 11 cm of water. 4. Recommend cardiology consultation. 5. Follow-up in the pulmonary medicine clinic within 2 weeks of discharge. IMPRESSIONS: 1. Acute on chronic hypoxemic respiratory failure Likely secondary to decompensated heart failure. The patient also has known underlying pulmonary hypertension. At this time, I agree with continued attempts at volume optimization with diuretics. A Sutton catheter has been placed to document strict I's and O's. The patient appears to have improved from an oxygenation status throughout her hospital course. I would also place a consultation to cardiology so that they can participate in the management of this patient. 2. Known obstructive sleep apnea The patient has been noncompliant with nocturnal CPAP therapy. I did call and speak with the patient's DME provider, kevin, who indicated that the patient last got CPAP supplies in 2017. At that time, her prescription was for a CPAP with a pressure support of 11 cm of water. Therefore, I would recommend continuing nocturnal CPAP therapy with a pressure support of 11. However, the patient has been refusing to utilize the aforementioned therapy as requested. 3. Chronic kidney disease Continue current medical management. Nephrology is following. 4. Paroxysmal atrial fibrillation Continue systemic anticoagulation as ordered. 5. Obesity/hypothyroidism/diabetes mellitus/hypertension/hyperlipidemia Complicates care, management, recovery and prognosis. Continue home medications as indicated. This note was generated with [employer] dictation software. It may contain incorrect words, spelling, and punctuation that were not noted in checking the note before signing. DISPOSITION: As the patient has no further pulmonary needs and is maintaining appropriate oxygen saturations on room air, will sign off. Please call with any additional questions. Code Visit Inpatient E&M: 35853 Subs Hosp L2
[2019-01-15 12:40] LABS: Bedside Glucose 163 mg/dL (70-110)
--- NOTE | 2019-01-15 13:37 | PCM.PROGNOTE ---
<Lisha Meneses - Last Filed: 01/15/19 13:50> Patient Problems: Active and Suspected Problems (Last Reviewed 12/11/18 @ 11:55 by Beto Dennis MD) Respiratory failure (Acute) Subjective: Patient seen and examined. Feels improved this morning. Reports muscle discomfort is improved. Denies significant shortness of breath. Lower extremity edema improved. - Physical Exam General: Alert, Oriented x3, Cooperative HEENT: Atraumatic, PERRLA, EOMI, Normocephalic Neck: Supple, No JVD, Negative Carotid Bruits Lungs: Clear to auscultation, Diminished Cardiovascular: Regular rate, Regular Rhythm, Normal S1, Normal S2, No murmurs Abdomen: Bowel Sounds Present, Soft, Non Tender, Non-Distended Extremities: No clubbing, No cyanosis, Capillary Refill Less than 3 Seconds, Edema - Bilateral lower extremities, nonpitting Skin: No rashes, No breakdown, - - Chronic skin changes bilateral lower extremities Musculoskeletal: No Tenderness to Palpation of Joints or Extremities Neurological: Cranial nerves II-XII grossly intact, Neuro grossly intact Psych/Mental Status: Normal Affect, Appropriate Vital Signs Temp Pulse Resp BP Pulse Ox 98.3 F 68 16 140/62 H 98 01/15/19 09:00 01/15/19 12:01 01/15/19 09:00 01/15/19 09:00 01/15/19 09:00 Oxygen Flow Rate (L/min) 2 Oxygen Delivery Method Room Air Weight: 174 lb 9.698 oz Body Mass Index (BMI) 33.5 Finger Stick Blood Glucose 257 Intake and Output for Last 24 Hours 01/13/19 01/14/19 01/15/19 23:59 23:59 23:59 Intake Total 977.0 / 977.0 1018 / 1177.6 322.9 / 322.9 Output Total 5875 / 5875 6202 / 7402 2450 / 2450 Balance -4898.0 / -4898.0 -5184 / -6224.4 -2127.1 / -2127.1 Microbiology Past 72 Hours 01/12/19 12:05 Respiratory Panel (PCR) - Final Mucosa - Nose Laboratory Tests Past 24 Hrs 01/15/19 01/15/19 05:22 05:54 PT 21.3 H INR 1.9 Sodium 135 L Potassium 3.9 Chloride 94 L Carbon Dioxide 37.0 H Anion Gap 4 L BUN 74 H Creatinine 2.36 H Estim Creat Clear Calc 16.51 Est GFR (MDRD) Af Amer 26 L Est GFR (MDRD) Non-Af 21 L BUN/Creatinine Ratio 31.4 H Glucose 138 H Calcium 8.8 POC Glucose 01/15/19 01/15/19 01/14/19 11:32 06:39 21:22 POC Glucose 163 H 166 H 190 H 01/14/19 16:34 POC Glucose 152 H Medical Necessity - Tobacco Use Smoking Status: Never smoker Assessment/Plan All Active Problems (Last Reviewed 12/11/18 @ 11:55 by Beto Dennis MD) Ulcer of left lower extremity with fat layer exposed (Acute) Respiratory failure (Acute) Wheeze (Acute) Ischemic cerebrovascular accident (CVA) (Resolved) Subdural bleeding (Resolved) 1. Acute on chronic hypoxic respiratory failure secondary to acute on chronic diastolic CHF-patient chronically wears 2 L nasal cannula at bedtime and as needed. Continue supplement oxygen to maintain O2 at or above 90%. Initially on BiPAP on admission. Oxygen now stable on room air. 2. Acute on chronic diastolic CHF-echocardiogram with EF 65%, mild to moderate tricuspid valve insufficiency, mild to moderate pulmonic valve insufficiency, RVSP estimated to be 72 mmHg. Strict I&O. Daily weight. Patient previously on Lasix 40 mg twice daily and reports 20 pound weight gain while on this regimen. Fluid restriction. Discontinue Bumex drip and transition to Bumex 2 mg IV every 8 hours per nephrology recommendations. Additionally added on oral metolazone. -17 pounds since admission per documentation. -11L. 3. Chronic COPD-no acute exacerbation. As needed albuterol aerosol. 4. CAD status post CABG-continue aspirin, Not on statin. 5. Type 2 diabetes [id number]-Ciwf-Dipdp AC at bedtime with sliding scale insulin. Continue long-acting regimen. 6. Paroxysmal atrial fibrillation-continue amiodarone, Coumadin. 7. Hypertension-stable, losartan on hold due to kidney function. 8. Chronic kidney disease stage IV-follows with Dr. Ulloa. Baseline creatinine 1.9-2.5. Creatinine at baseline. No evidence of HERNAN. Nephrology following. 9. Status post mitral valve replacement with bioprosthetic valve-stable per echo as noted above. 10. Hypothyroidism-continue Synthroid regimen. 11. Chronic foot diabetic wounds/ulcerations-left heel, left superior foot, and right great toe ulcerations, present on admission. Wound RN consult. Dressing changes per wound RN orders. 12. MAGALI-noncompliant with CPAP regimen. Encouraged CPAP use. DVT prophylaxis-Coumadin This patient was seen by JOSE ANGEL Null under the supervision of Dr. Gomez. <Dilshad Gomez - Last Filed: 01/15/19 17:00> Subjective: Patient had about 6 L of diuresis yesterday and about 5 L on 01/13. Lost about 18 pounds in the last 2 days. - Physical Exam General: Alert, Oriented x3, Cooperative HEENT: Atraumatic, PERRLA, EOMI, Normocephalic Neck: Supple, No JVD, Negative Carotid Bruits Lungs: Clear to auscultation, No rhonchi, No wheeze, No rales, Diminished Cardiovascular: Regular rate, Regular Rhythm, Normal S1, Normal S2, No murmurs Abdomen: Bowel Sounds Present, Soft, Non Tender, Non-Distended Extremities: Capillary Refill Less than 3 Seconds, Diminished Peripheral Pulses, Edema Skin: Ulcer/ Wound, - Musculoskeletal: No Tenderness to Palpation of Joints or Extremities, Arthritic Changes Neurological: Cranial nerves II-XII grossly intact, Deep Tendon Reflexes 2+/4 and Symmetrical, Neuro grossly intact Psych/Mental Status: Normal Affect, Appropriate Vital Signs Temp Pulse Resp BP Pulse Ox 98.5 F 61 18 152/75 H 98 01/15/19 15:00 01/15/19 15:00 01/15/19 15:00 01/15/19 15:00 01/15/19 15:00 Oxygen Flow Rate (L/min) 2 Oxygen Delivery Method Room Air Weight: 174 lb 9.698 oz Body Mass Index (BMI) 33.5 Finger Stick Blood Glucose 257 Intake and Output for Last 24 Hours 01/13/19 01/14/19 01/15/19 23:59 23:59 23:59 Intake Total 977.0 / 977.0 1018 / 1177.6 322.9 / 322.9 Output Total 5875 / 5875 6202 / 7402 2450 / 2450 Balance -4898.0 / -4898.0 -5184 / -6224.4 -2127.1 / -2127.1 Microbiology Past 72 Hours 01/12/19 12:05 Respiratory Panel (PCR) - Final Mucosa - Nose Laboratory Tests Past 24 Hrs 01/15/19 01/15/19 05:22 05:54 PT 21.3 H INR 1.9 Sodium 135 L Potassium 3.9 Chloride 94 L Carbon Dioxide 37.0 H Anion Gap 4 L BUN 74 H Creatinine 2.36 H Estim Creat Clear Calc 16.51 Est GFR (MDRD) Af Amer 26 L Est GFR (MDRD) Non-Af 21 L BUN/Creatinine Ratio 31.4 H Glucose 138 H Calcium 8.8 POC Glucose 01/15/19 01/15/19 01/14/19 11:32 06:39 21:22 POC Glucose 163 H 166 H 190 H Assessment/Plan This patient was seen in conjunction with [facility] MEDICAL BILLERLisha. I have independently interviewed and examined the patient and reviewed pertinent history, examination findings, laboratory and plan of management. I have reviewed the note and agree with the documented findings with the few additional points. In brief, patient is admitted for shortness of breath, bilateral lower extremity swelling feeling of generalized weakness and dyspnea. Was found to have acute on chronic hypoxic respiratory failure secondary to right ventricular failure and pulmonary hypertension. The patient had about 11 L diuresis in the last 2 days on Bumex drip. Bumex drip was discontinued. Started on Bumex 2 mg IV every 8 hourly as per child care aide recommendation. Patient also has obstructive sleep apnea but noncompliant to CPAP. Pulmonary consult appreciated. Patient also has eosinophilia, etiology unclear. Patient has chronic diabetic foot ulcer on left heel, right great toe ulcer, present on admission. Being followed by wound care nurse. I have discussed my assessment with Lisha BUCK and orders have been reviewed. Code Visit Inpatient E&M: 66385 Subs Hosp L3
[2019-01-15] MEDS: Bumetanide 1 MG/4 ML Vial 2 MG IV ×2 (14:36→21:56)
[2019-01-15] MEDS: ALPRAZolam 0.25 MG Tablet 0.125 MG PO (14:37)
--- NOTE | 2019-01-15 15:26 | CASEMGMT ---
This RN CM to room to discuss discharge plan with pt at this time and pt is agreeable to [facility] RN at this time but states that therapy is not necessary at this time. Order placed in [facility]. Call to Danna at [facility] and she states that they will be able to take pt and is aware that pt to be discharged tomorrow. Green sheet on chart. Raleigh PORTILLO CM
--- NOTE | 2019-01-15 15:39 | CHAPLAIN ---
Type of Pastoral Visit _x__ Initial Visit ___ Follow-up Visit ___ On-call Visit ___ General Patient Visit ___ Spiritual Assessment ___ Family Conference ___ Bereavement ___ Rapid Response ___ Code Blue ___ Other (describe below) Pastoral Care Referral From _x__ Patient ___ Family ___ Nurse ___ Physician ___ Chain Pegger ___ Collar Shaper Operator ___ Other (describe below) Sacrament/Intervention _x__ Active listening ___ Anointing ___ Pentecostal ___ Bereavement ___ Communion _x__ Sara exploration ___ _x__ Life review _x__ Prayer ___ Reconciliation ___ Sacrament of Sick _x__ Supportive presence ___ Wedding ___ Other (describe below) Pastoral Comments patient speaks of several feelings that are contributing to anxiety issues today; pt welcomed supportive presence and prayer;
[2019-01-15 17:20] LABS: Bedside Glucose 205 mg/dL (70-110)
[2019-01-15] MEDS: 0.9% NaCl Peripheral Flush Adult/Peds IV (21:56)
[2019-01-15] MEDS: Aspirin E.C. 81 MG Tablet PO (21:56)
[2019-01-15 22:40] LABS: Bedside Glucose 192 mg/dL (70-110)
--- NOTE | 2019-01-15 22:49 | EKG12_ITS ---
Test Reason : IRREGULAR RHYTHM Blood Pressure : / mmHG Vent. Rate : 049 BPM Atrial Rate : 049 BPM P-R Int : 212 ms QRS Dur : 102 ms QT Int : 566 ms P-R-T Axes : 015 100 116 degrees QTc Int : 511 ms Sinus bradycardia with 1st degree A-V block Rightward axis Prolonged QT Abnormal ECG When compared with ECG of 15-JAN-2019 22:33, MANUAL COMPARISON REQUIRED, DATA IS UNCONFIRMED Confirmed by RAVIN IZAGUIRRE, JAZMIN ([id number]), editor dictionary SHIRLENE KOVACS ([id number]) on 01/19/2019 8:05:38 AM Referred By: ASTRID Confirmed By:JAZMIN ALICIA MD
--- NOTE | 2019-01-15 22:49 | NURSING ---
Pt had c/o chest burning while nurse was in room. Was sitting quietly, sudden onset, midsternal, no radiation. Assisted pt to bed and performed EKG per protocol. Pt stated the pain subsided by the time the procedure was complete. Physician aware.
[2019-01-16] VITALS (11 sets, daily range): BP systolic 110–157; BP diastolic 55–63; PULSE 53–75; RESP 14–20; TEMP 36.4–36.7; O2SAT 94–97
[2019-01-16] MEDS: ALPRAZolam 0.25 MG Tablet 0.125 MG PO (05:05)
[2019-01-16 05:50] LABS: Anion Gap 9 (5-15); BUN 84 mg/dL (7-18); BUN/Creat Ratio 32.2 RATIO (10-20); Calcium,Total 8.7 mg/dL (8.5-10.1); Chloride 92 mmol/L (98-107); Creatinine, Serum 2.61 mg/dL (0.55-1.02); EST Glomerular Filtration Rate 19 mL/min (>60); Est Glom Filt Rate - Afr Amer 23 mL/min (>60); Estimated Creatinine Clearance 14.93 ml/min; Glucose 123 mg/dL (74-106); Potassium 3.8 mmol/L (3.5-5.1); Sodium Level 139 mmol/L (136-145)
[2019-01-16 05:57] LABS: International Normalized Ratio 1.6; Prothrombin Time (Protime)PT. 18.6 SECONDS (11.7-14.9)
[2019-01-16 06:01] LABS: Bedside Glucose 111 mg/dL (70-110)
[2019-01-16] MEDS: Levothyroxine 88 MCG Tablet PO (06:42)
[2019-01-16] MEDS: Bumetanide 1 MG/4 ML Vial 2 MG IV (06:42)
[2019-01-16] MEDS: Acetaminophen 500 MG Tablet 1000 MG PO ×3 (06:42→20:57)
[2019-01-16] MEDS: metOLazone 5 MG Tablet PO (09:03)
[2019-01-16] MEDS: Amiodarone 200 MG Tablet 100 MG PO (09:03)
[2019-01-16] MEDS: guaiFENesin 1,200 MG Tablet 1200 MG PO ×2 (09:03→20:57)
[2019-01-16] MEDS: Multivitamins,Ther W-Minerals Tablet 1 TABLET PO (09:03)
[2019-01-16] MEDS: Loratadine 10 MG Tablet PO (09:04)
[2019-01-16] MEDS: 0.9% NaCl Peripheral Flush Adult/Peds IV (09:11)
[2019-01-16] MEDS: Insulin Lispro 100 UNIT/ML INSULN.PEN 8 UNIT SC ×2 (10:53→16:38)
[2019-01-16] MEDS: Insulin Lispro 100 UNIT/ML INSULN.PEN SQ ×3 (10:53→20:58)
[2019-01-16 11:25] LABS: Bedside Glucose 295 mg/dL (70-110)
--- NOTE | 2019-01-16 11:53 | PCM.PROGNOTE ---
<Lisha Meneses - Last Filed: 01/16/19 12:02> Patient Problems: Active and Suspected Problems (Last Reviewed 12/11/18 @ 11:55 by Beto Dennis MD) Respiratory failure (Acute) Subjective: Patient seen and examined. at bedside. Patient reports generalized weakness and anxiety. Reports her is gone most days at work and she is afraid of being home alone. Shortness of breath and swelling improved. - Physical Exam General: Alert, Oriented x3, Cooperative HEENT: Atraumatic, PERRLA, EOMI, Normocephalic Oral: Dry Mucosa Neck: Supple, No JVD, Negative Carotid Bruits Lungs: Diminished, Wheezes Cardiovascular: Regular Rhythm, Normal S1, Normal S2, No murmurs, Bradycardic Abdomen: Bowel Sounds Present, Soft, Non Tender, Non-Distended Extremities: No clubbing, No cyanosis, No edema, Capillary Refill Less than 3 Seconds Skin: No rashes, No breakdown, - - Chronic skin changes bilateral lower extremities Musculoskeletal: No Tenderness to Palpation of Joints or Extremities Neurological: Cranial nerves II-XII grossly intact, Neuro grossly intact Psych/Mental Status: Anxious, Depressed Vital Signs Temp Pulse Resp BP Pulse Ox 98.0 F 57 L 14 110/55 L 96 01/16/19 09:00 01/16/19 09:00 01/16/19 09:00 01/16/19 09:00 01/16/19 09:00 Oxygen Flow Rate (L/min) 2 Oxygen Delivery Method Room Air Weight: 168 lb 10.458 oz Body Mass Index (BMI) 33.5 Finger Stick Blood Glucose 257 Intake and Output for Last 24 Hours 01/14/19 01/15/19 01/16/19 23:59 23:59 23:59 Intake Total 1018 / 1177.6 872.9 / 872.9 90 / 90 Output Total 6202 / 7402 3900 / 4200 1350 / 1350 Balance -5184 / -6224.4 -3027.1 / -3327.1 -1260 / -1260 Laboratory Tests Past 24 Hrs 01/15/19 01/16/19 01/16/19 22:55 02:00 05:20 PT 18.6 H INR 1.6 Sodium Potassium Chloride Carbon Dioxide Anion Gap BUN Creatinine Estim Creat Clear Calc Est GFR (MDRD) Af Amer Est GFR (MDRD) Non-Af BUN/Creatinine Ratio Glucose Calcium Troponin I 0.023 0.024 01/16/19 01/16/19 05:20 05:20 PT INR Sodium 139 Potassium 3.8 Chloride 92 L Carbon Dioxide 38.0 H Anion Gap 9 BUN 84 H Creatinine 2.61 H Estim Creat Clear Calc 14.93 Est GFR (MDRD) Af Amer 23 L Est GFR (MDRD) Non-Af 19 L BUN/Creatinine Ratio 32.2 H Glucose 123 H Calcium 8.7 Troponin I 0.018 POC Glucose 01/16/19 01/16/19 01/15/19 10:52 05:12 21:49 POC Glucose 295 H 111 H 192 H 01/15/19 01/15/19 16:53 11:32 POC Glucose 205 H 163 H Medical Necessity - Tobacco Use Smoking Status: Never smoker Assessment/Plan All Active Problems (Last Reviewed 12/11/18 @ 11:55 by Beto Dennis MD) Ulcer of left lower extremity with fat layer exposed (Acute) Respiratory failure (Acute) Wheeze (Acute) Ischemic cerebrovascular accident (CVA) (Resolved) Subdural bleeding (Resolved) 1. Acute on chronic hypoxic respiratory failure secondary to acute on chronic diastolic CHF-patient chronically wears 2 L nasal cannula at bedtime and as needed. Continue supplement oxygen to maintain O2 at or above 90%. Initially on BiPAP on admission. Oxygen now stable on room air. 2. Acute on chronic diastolic CHF-echocardiogram with EF 65%, mild to moderate tricuspid valve insufficiency, mild to moderate pulmonic valve insufficiency, RVSP estimated to be 72 mmHg. Strict I&O. Daily weight. Patient previously on Lasix 40 mg twice daily and reports 20 pound weight gain while on this regimen. Fluid restriction. Transition to Bumex 2 mg PO every 8 hours per nephrology recommendations. Additionally added on oral metolazone 5 mg daily. -20 pounds since admission per documentation. 3. Chronic COPD-no acute exacerbation. As needed albuterol aerosol. 4. CAD status post CABG-continue aspirin, Not on statin. 5. Type 2 diabetes wyqklziy-Inqf-Vbwxk ACHS with sliding scale insulin. Continue long-acting regimen. 6. Paroxysmal atrial fibrillation-continue amiodarone, Coumadin. 7. Hypertension-stable, losartan on hold due to kidney function. 8. Chronic kidney disease stage IV-follows with Dr. Ulloa. Baseline creatinine 1.9-2.5. Creatinine at baseline. No evidence of HERNAN. Nephrology following. 9. Status post mitral valve replacement with bioprosthetic valve-stable per echo as noted above. 10. Hypothyroidism-continue Synthroid regimen. 11. Chronic foot diabetic wounds/ulcerations-left heel, left superior foot, and right great toe ulcerations, present on admission. Wound RN consult. Dressing changes per wound RN orders. 12. MAGALI-noncompliant with CPAP regimen. Encouraged CPAP use. DVT prophylaxis-Coumadin This patient was seen by JOSE ANGEL Null under the supervision of Dr. Gomez. <Dilshad Gomez - Last Filed: 01/16/19 15:56> Subjective: Patient feels weak and anxiety. She states she is wheezing but overall shortness of breath and swelling is improved. Wheezing is mainly from upper airway, she has obstructive sleep apnea. - Physical Exam General: Alert, Oriented x3, Cooperative HEENT: Atraumatic, PERRLA, EOMI, Normocephalic Oral: Dry Mucosa Neck: Supple, No JVD, Negative Carotid Bruits Lungs: No rales, Diminished, Wheezes Cardiovascular: Regular rate, No murmurs Abdomen: Bowel Sounds Present, Soft, Non Tender, Non-Distended Extremities: Capillary Refill Less than 3 Seconds, Edema - Edema is much improved. Skin: No rashes, No breakdown, Ulcer/ Wound - chronic diabetic foot ulcer on left heel, right great toe ulcer, - Musculoskeletal: No Tenderness to Palpation of Joints or Extremities, Arthritic Changes Neurological: Cranial nerves II-XII grossly intact, Deep Tendon Reflexes 2+/4 and Symmetrical, Neuro grossly intact Psych/Mental Status: Normal Affect, Appropriate Vital Signs Temp Pulse Resp BP Pulse Ox 97.8 F 60 20 H 115/58 L 97 01/16/19 15:00 01/16/19 15:00 01/16/19 15:00 01/16/19 15:01/16/19 15:00 Oxygen Flow Rate (L/min) 2 Oxygen Delivery Method Room Air Weight: 168 lb 10.458 oz Body Mass Index (BMI) 33.5 Finger Stick Blood Glucose 257 Intake and Output for Last 24 Hours 01/14/19 01/15/19 01/16/19 23:59 23:59 23:59 Intake Total 1018 / 1177.6 872.9 / 872.9 290 / 290 Output Total 6202 / 7402 3900 / 4200 1750 / 1750 Balance -5184 / -6224.4 -3027.1 / -3327.1 -1460 / -1460 Laboratory Tests Past 24 Hrs 01/15/19 01/16/19 01/16/19 22:55 02:00 05:20 PT 18.6 H INR 1.6 Sodium Potassium Chloride Carbon Dioxide Anion Gap BUN Creatinine Estim Creat Clear Calc Est GFR (MDRD) Af Amer Est GFR (MDRD) Non-Af BUN/Creatinine Ratio Glucose Calcium Troponin I 0.023 0.024 01/16/19 01/16/19 05:20 05:20 PT INR Sodium 139 Potassium 3.8 Chloride 92 L Carbon Dioxide 38.0 H Anion Gap 9 BUN 84 H Creatinine 2.61 H Estim Creat Clear Calc 14.93 Est GFR (MDRD) Af Amer 23 L Est GFR (MDRD) Non-Af 19 L BUN/Creatinine Ratio 32.2 H Glucose 123 H Calcium 8.7 Troponin I 0.018 POC Glucose 01/16/19 01/16/19 01/15/19 10:52 05:12 21:49 POC Glucose 295 H 111 H 192 H 01/15/19 16:53 POC Glucose 205 H Assessment/Plan This patient was seen in conjunction with FEEDER SWITCHBOARD OPERATOR, Lisha. I have independently interviewed and examined the patient and reviewed pertinent history, examination findings, laboratory and plan of management. I have reviewed the note and agree with the documented findings with the few additional points. In brief, patient is admitted for shortness of breath, bilateral lower extremity swelling feeling of generalized weakness and dyspnea. Was found to have acute on chronic hypoxic respiratory failure secondary to right ventricular failure and pulmonary hypertension. The patient had about 11 L diuresis in the last 2 days on Bumex drip. Bumex drip was discontinued. Started on Bumex 2 mg IV every 8 hourly as per cloth printer helper recommendation and changed to oral. Patient also has obstructive sleep apnea but noncompliant to CPAP. Pulmonary consult appreciated. Patient also has eosinophilia, etiology unclear. Patient has chronic diabetic foot ulcer on left heel, right great toe ulcer, present on admission. Being followed by wound care nurse. PT and OT follow and discharge planning I have discussed my assessment with Lisha BUCK and orders have been reviewed. Code Visit Inpatient E&M: 35363 Subs Hosp L3
[2019-01-16] MEDS: Albuterol 2.5 MG/3 ML VIAL.NEB. INHALATION (12:26)
--- NOTE | 2019-01-16 13:15 | RAD_ITS ---
STUDY: X-RAY CHEST REASON FOR EXAM: Female, 78 years old. TECHNIQUE: COMPARISON: January 12, 2019 FINDINGS: The heart is slightly enlarged. The lung garcia show heavy markings but no obvious consolidation or atelectasis. The costophrenic angles are now clear. No pneumothorax or pleural effusion noted. There are multiple metallic stitches along the sternum from previous surgery. Mitral valve replacement is seen. There is evidence of repaired rotator cuff injury on the right side. The visualized bony structures are intact. The trachea is in the midline. RAD/Chest 1 View (Portable) IMPRESSION: No active intrathoracic disease unchanged since the study of January 12, 2019 Electronically Signed: Kristian Mccauley, at 13:56 EDT Tel , Service support ,
[2019-01-16] MEDS: Bumetanide 2 MG Tablet PO ×2 (13:27→20:58)
--- NOTE | 2019-01-16 16:06 | CASEMGMT ---
Social Work Referral: [facility] referral Spoke with patient and patient family in room. Patient reporting to now be concerned about returning to home as patient is needing more assistance today per patient. Patient wanting to transition to a shelter facility for therapy prior to returning to home. Patient reporting to live with patient spouse but that patient spouse works during the day and will not be able to assist patient. Patient interested in transitioning to the Transitional Care Unit in order to work on strengthening and endurance. Patient aware that a pre-cert would need to be obtained in order for patient to have stay on the TCU covered by insurance. Patient aware that pre-cert can not be started until Friday. Support given. Telephone call to the referral line, voicemail left with referral for the TCU. Social Work to continue to follow. Campbell HILLIARD, YASMINE
[2019-01-16 16:46] LABS: Bedside Glucose 226 mg/dL (70-110)
--- NOTE | 2019-01-16 17:54 | PCM.PN.REN ---
Patient Problems: Active and Suspected Problems (Last Reviewed 12/11/18 @ 11:55 by Beto Dennis MD) Respiratory failure (Acute) Subjective: Patient is doing well. Breathing is stable. No nausea no vomiting. No shortness of breath She lost more than 20 pounds since admission - Physical Exam General: Alert, Oriented x3 HEENT: Atraumatic Oral: Moist Mucosa Neck: Supple, No JVD Lungs: Clear to auscultation, Normal air movement, No rhonchi, No wheeze Cardiovascular: Regular rate, Regular Rhythm, Normal S1, Normal S2 Abdomen: Bowel Sounds Present, Soft, Non Tender, Non-Distended Extremities: No clubbing, No cyanosis, No edema Skin: No rashes Musculoskeletal: No Tenderness to Palpation of Joints or Extremities Lymphatic: No Cervical, Supraclavicular, or Inguinal Adenopathy Neurological: Cranial nerves II-XII grossly intact, Neuro grossly intact Psych/Mental Status: Appropriate Vital Signs Temp Pulse Resp BP Pulse Ox 97.8 F 60 20 H 115/58 L 97 01/16/19 15:00 01/16/19 15:00 01/16/19 15:00 01/16/19 15:00 01/16/19 15:00 Oxygen Flow Rate (L/min) 2 Oxygen Delivery Method Room Air Weight: 76.5 kg Body Mass Index (BMI) 33.5 Finger Stick Blood Glucose 257 Intake and Output for Last 24 Hours 01/14/19 01/15/19 01/16/19 23:59 23:59 23:59 Intake Total 1018 / 1177.6 872.9 / 872.9 490 / 490 Output Total 6202 / 7402 3900 / 4200 2150 / 2150 Balance -5184 / -6224.4 -3027.1 / -3327.1 -1660 / -1660 Laboratory Tests Past 24 Hrs 01/15/19 01/16/19 01/16/19 22:55 02:00 05:20 PT 18.6 H INR 1.6 Sodium Potassium Chloride Carbon Dioxide Anion Gap BUN Creatinine Estim Creat Clear Calc Est GFR (MDRD) Af Amer Est GFR (MDRD) Non-Af BUN/Creatinine Ratio Glucose Calcium Troponin I 0.023 0.024 01/16/19 01/16/19 05:20 05:20 PT INR Sodium 139 Potassium 3.8 Chloride 92 L Carbon Dioxide 38.0 H Anion Gap 9 BUN 84 H Creatinine 2.61 H Estim Creat Clear Calc 14.93 Est GFR (MDRD) Af Amer 23 L Est GFR (MDRD) Non-Af 19 L BUN/Creatinine Ratio 32.2 H Glucose 123 H Calcium 8.7 Troponin I 0.018 POC Glucose 01/16/19 01/16/19 01/16/19 16:38 10:52 05:12 POC Glucose 226 H 295 H 111 H 01/15/19 21:49 POC Glucose 192 H Medical Necessity - Tobacco Use Smoking Status: Never smoker Assessment/Plan All Active Problems (Last Reviewed 12/11/18 @ 11:55 by Beto Dennis MD) Ulcer of left lower extremity with fat layer exposed (Acute) Respiratory failure (Acute) Wheeze (Acute) Ischemic cerebrovascular accident (CVA) (Resolved) Subdural bleeding (Resolved) 1- 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 from CRS and DNP Kidney function is most probably related to cardiorenal syndrome. Improved with diuresis but creatinine trend in the last 24-hour increased from 2.3-2.6. I will decrease diuretics. I will change Bumex to 2 mg twice a day oral. I will DC metolazone Please avoid BETZAIDA inhibitor or ARB with diuresis. 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 low sodium diet of 2000 mg PO daily fluid restriction of 45 oz daily continue daily weight Renal team will continue to follow call if any question at [phone] Magdy Flores MD
[2019-01-16] MEDS: Aspirin E.C. 81 MG Tablet PO (20:57)
[2019-01-16 21:40] LABS: Bedside Glucose 250 mg/dL (70-110)
[2019-01-16] MEDS: ALPRAZolam 0.5 MG Tablet PO (22:11)
[2019-01-17] VITALS (9 sets, daily range): BP systolic 100–138; BP diastolic 47–71; PULSE 46–68; RESP 16–20; TEMP 36.2–36.6; O2SAT 93–100
--- NOTE | 2019-01-17 03:32 | EKG12_ITS ---
Test Reason : CHEST BURNING Blood Pressure : / mmHG Vent. Rate : 062 BPM Atrial Rate : 062 BPM P-R Int : 198 ms QRS Dur : 098 ms QT Int : 508 ms P-R-T Axes : 013 110 091 degrees QTc Int : 515 ms Sinus rhythm with Premature supraventricular complexes Left posterior fascicular block Nonspecific ST abnormality Prolonged QT Abnormal ECG When compared with ECG of 10-JAN-2019 17:24, Premature supraventricular complexes are now Present QT has lengthened Confirmed by RAVIN IZAGUIRRE, JAZMIN ([id number]), communications editor SHIRLENE KOVACS ([id number]) on 01/19/2019 8:10:01 AM Referred By: DANGELO Confirmed By:JAZMIN ALICIA MD
[2019-01-17] MEDS: Levothyroxine 88 MCG Tablet PO (05:09)
[2019-01-17] MEDS: Acetaminophen 500 MG Tablet 1000 MG PO ×3 (05:09→22:14)
[2019-01-17 06:12] LABS: Hematocrit 39.8 % (37-47); Hemoglobin 12.5 g/dl (12.0-15.0); Mean Corp Hgb Conc 31.4 g/gl (32-36); Mean Corpuscular Hgb 24.8 pg (27.0-32.0); Mean Platelet Vol. 10.9 fl (6.2-12.0); Platelet Count 204 K/mm3 (150-450); RBC Distribution Width CV 16.8 % (11.6-14.6); RBC Distribution Width SD 47.2 fl (35.1-43.9); Red Blood Count 5.04 M/mm3 (4.2-5.4); White Blood Count 14.7 K/mm3 (4.4-11.0)
[2019-01-17 06:15] LABS: Scan Indicated on CBC? Y/N NO
[2019-01-17 06:18] LABS: International Normalized Ratio 1.7; Prothrombin Time (Protime)PT. 19.7 SECONDS (11.7-14.9)
[2019-01-17 06:28] LABS: Anion Gap 8 (5-15); BUN 83 mg/dL (7-18); BUN/Creat Ratio 32.5 RATIO (10-20); Calcium,Total 8.6 mg/dL (8.5-10.1); Chloride 90 mmol/L (98-107); Creatinine, Serum 2.55 mg/dL (0.55-1.02); EST Glomerular Filtration Rate 19 mL/min (>60); Est Glom Filt Rate - Afr Amer 23 mL/min (>60); Estimated Creatinine Clearance 15.28 ml/min; Glucose 92 mg/dL (74-106); Potassium 3.6 mmol/L (3.5-5.1); Sodium Level 138 mmol/L (136-145)
[2019-01-17 06:51] LABS: Bedside Glucose 107 mg/dL (70-110)
[2019-01-17] MEDS: Insulin Lispro 100 UNIT/ML INSULN.PEN 8 UNIT SC ×3 (08:23→16:25)
[2019-01-17] MEDS: Bumetanide 2 MG Tablet PO ×2 (08:23→16:25)
[2019-01-17] MEDS: Loratadine 10 MG Tablet PO (08:23)
[2019-01-17] MEDS: Amiodarone 200 MG Tablet 100 MG PO (08:23)
[2019-01-17] MEDS: Multivitamins,Ther W-Minerals Tablet 1 TABLET PO (08:23)
[2019-01-17] MEDS: guaiFENesin 1,200 MG Tablet 1200 MG PO ×2 (08:24→22:46)
[2019-01-17] MEDS: Insulin Lispro 100 UNIT/ML INSULN.PEN SQ ×2 (12:05→22:15)
[2019-01-17 12:11] LABS: Bedside Glucose 193 mg/dL (70-110)
--- NOTE | 2019-01-17 13:00 | PCM.PROGNOTE ---
<Lisha Meneses - Last Filed: 01/17/19 13:12> Patient Problems: Active and Suspected Problems (Last Reviewed 12/11/18 @ 11:55 by Beto Dennis MD) Respiratory failure (Acute) Subjective: Patient seen and examined. Reports she feels overall improved. Weakness improved. Feels she may be able to go home at discharge however would like to work with therapy today and decide in the morning whether she would like to go to TCU versus home. - Physical Exam General: Alert, Oriented x3, Cooperative HEENT: Atraumatic, PERRLA, EOMI, Normocephalic Neck: Supple, No JVD, Negative Carotid Bruits Lungs: Clear to auscultation, Diminished Cardiovascular: Regular Rhythm, Normal S1, Normal S2, No murmurs, Bradycardic Abdomen: Bowel Sounds Present, Soft, Non Tender, Non-Distended Extremities: No clubbing, No cyanosis, No edema, Capillary Refill Less than 3 Seconds, - - Lower extremity edema resolved Skin: - - Chronic skin changes bilateral lower extremities Musculoskeletal: No Tenderness to Palpation of Joints or Extremities Neurological: Cranial nerves II-XII grossly intact, Neuro grossly intact Psych/Mental Status: Anxious Vital Signs Temp Pulse Resp BP Pulse Ox 97.9 F 68 16 100/47 L 97 01/17/19 09:00 01/17/19 09:00 01/17/19 09:00 01/17/19 09:00 01/17/19 09:00 Oxygen Flow Rate (L/min) 2 Oxygen Delivery Method Room Air Weight: 168 lb 6.931 oz Body Mass Index (BMI) 33.5 Finger Stick Blood Glucose 257 Intake and Output for Last 24 Hours 01/15/19 01/16/19 01/17/19 23:59 23:59 23:59 Intake Total 872.9 / 872.9 610 / 610 300 / 300 Output Total 3900 / 4200 2600 / 2600 1800 / 1800 Balance -3027.1 / -3327.1 -1989 / -1989 -1500 / -1500 Laboratory Tests Past 24 Hrs 01/17/19 01/17/19 01/17/19 05:30 05:30 05:30 WBC 14.7 H RBC 5.04 Hgb 12.5 Hct 39.8 MCV 79.0 L MCH 24.8 L MCHC 31.4 L RDW 16.8 H RDW Differential 47.2 H Plt Count 204 MPV 10.9 PT 19.7 H INR 1.7 Sodium 138 Potassium 3.6 Chloride 90 L Carbon Dioxide 40.0 H Anion Gap 8 BUN 83 H Creatinine 2.55 H Estim Creat Clear Calc 15.28 Est GFR (MDRD) Af Amer 23 L Est GFR (MDRD) Non-Af 19 L BUN/Creatinine Ratio 32.5 H Glucose 92 Calcium 8.6 POC Glucose 01/17/19 01/17/19 01/16/19 11:51 06:47 20:56 POC Glucose 193 H 107 250 H 01/16/19 16:38 POC Glucose 226 H Medical Necessity - Tobacco Use Smoking Status: Never smoker Assessment/Plan All Active Problems (Last Reviewed 12/11/18 @ 11:55 by Beto Dennis MD) Ulcer of left lower extremity with fat layer exposed (Acute) Respiratory failure (Acute) Wheeze (Acute) Ischemic cerebrovascular accident (CVA) (Resolved) Subdural bleeding (Resolved) 1. Acute on chronic hypoxic respiratory failure secondary to acute on chronic diastolic CHF-patient chronically wears 2 L nasal cannula at bedtime and as needed. Continue supplement oxygen to maintain O2 at or above 90%. Initially on BiPAP on admission. Oxygen now stable on room air. 2. Acute on chronic diastolic CHF-echocardiogram with EF 65%, mild to moderate tricuspid valve insufficiency, mild to moderate pulmonic valve insufficiency, RVSP estimated to be 72 mmHg. Strict I&O. Daily weight. Patient previously on Lasix 40 mg twice daily and reports 20 pound weight gain while on this regimen. Fluid restriction. Transition to Bumex 2 mg PO every 8 hours per nephrology recommendations. Additionally added on oral metolazone 5 mg daily. -20 pounds since admission per documentation. 3. Chronic COPD-no acute exacerbation. As needed albuterol aerosol. 4. CAD status post CABG-continue aspirin, Not on statin. 5. Type 2 diabetes [id number] ACHS with sliding scale insulin. Continue long-acting regimen. 6. Paroxysmal atrial fibrillation-continue amiodarone, Coumadin. 7. Hypertension-stable, losartan on hold due to kidney function. 8. Chronic kidney disease stage IV-follows with Dr. Ulloa. Baseline creatinine 1.9-2.5. Creatinine at baseline. No evidence of HERNAN. Nephrology following. 9. Status post mitral valve replacement with bioprosthetic valve-stable per echo as noted above. 10. Hypothyroidism-continue Synthroid regimen. 11. Chronic foot diabetic wounds/ulcerations-left heel, left superior foot, and right great toe ulcerations, present on admission. Wound RN consult. Dressing changes per wound RN orders. 12. MAGALI-noncompliant with CPAP regimen. Encouraged CPAP use. DVT prophylaxis-Coumadin Discharge planning: TCU pending pre-cert versus home. This patient was seen by JOSE ANGEL Null under the supervision of Dr. Gomez. <Dilshad Gomez - Last Filed: 01/17/19 16:09> Subjective: Seen and examined. Patient shortness of breath has improved. Overall, she wants more physical therapy and is not decided about going to TCU versus home with home physical therapy - Physical Exam General: Alert, Oriented x3, Cooperative HEENT: Atraumatic, PERRLA, EOMI, Normocephalic Neck: Supple, No JVD, Negative Carotid Bruits Lungs: Clear to auscultation, No rhonchi, No rales, Diminished, Wheezes - Wheezing from the throat/upper airway Cardiovascular: Regular Rhythm, Normal S1, Normal S2, No murmurs, Bradycardic Abdomen: Bowel Sounds Present, Soft, Non Tender Extremities: Capillary Refill Less than 3 Seconds, - Skin: - - Chronic skin changes bilateral lower extremities chronic diabetic foot ulcer on left heel, right great toe ulcer Musculoskeletal: No Tenderness to Palpation of Joints or Extremities Neurological: Cranial nerves II-XII grossly intact Psych/Mental Status: Normal Affect, Appropriate Vital Signs Temp Pulse Resp BP Pulse Ox 97.7 F L 61 20 H 136/71 H 97 01/17/19 15:00 01/17/19 15:00 01/17/19 15:00 01/17/19 15:00 01/17/19 15:00 Oxygen Flow Rate (L/min) 2 Oxygen Delivery Method Room Air Weight: 168 lb 6.931 oz Body Mass Index (BMI) 33.5 Finger Stick Blood Glucose 257 Intake and Output for Last 24 Hours 01/15/19 01/16/19 01/17/19 23:59 23:59 23:59 Intake Total 872.9 / 872.9 610 / 610 300 / 300 Output Total 3900 / 4200 2600 / 2600 1800 / 1800 Balance -3027.1 / -3327.1 -1989 / -1500 / -1500 Laboratory Tests Past 24 Hrs 01/17/19 01/17/19 01/17/19 05:30 05:30 05:30 WBC 14.7 H RBC 5.04 Hgb 12.5 Hct 39.8 MCV 79.0 L MCH 24.8 L MCHC 31.4 L RDW 16.8 H RDW Differential 47.2 H Plt Count 204 MPV 10.9 PT 19.7 H INR 1.7 Sodium 138 Potassium 3.6 Chloride 90 L Carbon Dioxide 40.0 H Anion Gap 8 BUN 83 H Creatinine 2.55 H Estim Creat Clear Calc 15.28 Est GFR (MDRD) Af Amer 23 L Est GFR (MDRD) Non-Af 19 L BUN/Creatinine Ratio 32.5 H Glucose 92 Calcium 8.6 POC Glucose 01/17/19 01/17/19 01/16/19 11:51 06:47 20:56 POC Glucose 193 H 107 250 H 01/16/19 16:38 POC Glucose 226 H Assessment/Plan This patient was seen in conjunction with Lisha BUCK. I have independently interviewed and examined the patient and reviewed pertinent history, examination findings, laboratory and plan of management. I have reviewed the note and agree with the documented findings with the few additional points. In brief, patient is admitted for shortness of breath, bilateral lower extremity swelling feeling of generalized weakness and dyspnea. Was found to have acute on chronic hypoxic respiratory failure secondary to right ventricular failure and pulmonary hypertension. The patient had about 16 L diuresis, negative fluid balance. Initially patient was on Bumex drip that was discontinued and transitioned from intermittent IV to oral 2 mg every 8 hourly. Patient also has obstructive sleep apnea but noncompliant to CPAP. Pulmonary consult appreciated. Patient also has eosinophilia, etiology unclear. Patient has chronic diabetic foot ulcer on left heel, right great toe ulcer, present on admission. Being followed by wound care nurse. PT and OT follow and discharge planning Patient needs to be discharged on 2 mg Bumex every 8 hourly Plan: Discharge home with home physical therapy versus SNF I have discussed my assessment with Lisha BUCK and orders have been reviewed. Code Visit Inpatient E&M: 74569 Subs Hosp L3
[2019-01-17 16:36] LABS: Bedside Glucose 126 mg/dL (70-110)
[2019-01-17] MEDS: Aspirin E.C. 81 MG Tablet PO (22:14)
[2019-01-17] MEDS: ALPRAZolam 0.5 MG Tablet PO (22:18)
[2019-01-17 22:41] LABS: Bedside Glucose 174 mg/dL (70-110)
[2019-01-18] VITALS (7 sets, daily range): BP systolic 127–144; BP diastolic 55–68; PULSE 49–58; RESP 16–18; TEMP 35.8–36.7; O2SAT 98–99
[2019-01-18] MEDS: Acetaminophen 500 MG Tablet 1000 MG PO ×2 (06:28→13:38)
[2019-01-18] MEDS: Levothyroxine 88 MCG Tablet PO (06:28)
[2019-01-18 06:31] LABS: Anion Gap 10 (5-15); BUN 90 mg/dL (7-18); Calcium,Total 8.4 mg/dL (8.5-10.1); Chloride 93 mmol/L (98-107); Creatinine, Serum 2.65 mg/dL (0.55-1.02); EST Glomerular Filtration Rate 19 mL/min (>60); Est Glom Filt Rate - Afr Amer 22 mL/min (>60); Estimated Creatinine Clearance 14.71 ml/min; Glucose 156 mg/dL (74-106); Potassium 3.6 mmol/L (3.5-5.1); Sodium Level 136 mmol/L (136-145)
[2019-01-18] MEDS: Insulin Lispro 100 UNIT/ML INSULN.PEN SQ ×2 (06:31→12:30)
[2019-01-18 06:41] LABS: Bedside Glucose 169 mg/dL (70-110)
[2019-01-18] MEDS: Calcitriol 0.25 MCG Capsule PO (08:46)
[2019-01-18] MEDS: Amiodarone 200 MG Tablet 100 MG PO (08:46)
[2019-01-18] MEDS: Bumetanide 2 MG Tablet PO ×2 (08:47→17:27)
[2019-01-18] MEDS: Insulin Lispro 100 UNIT/ML INSULN.PEN 8 UNIT SC ×3 (08:47→17:27)
[2019-01-18] MEDS: guaiFENesin 1,200 MG Tablet 1200 MG PO (08:47)
[2019-01-18] MEDS: Multivitamins,Ther W-Minerals Tablet 1 TABLET PO (08:47)
[2019-01-18] MEDS: Loratadine 10 MG Tablet PO (08:47)
--- NOTE | 2019-01-18 10:33 | PCM.DC ---
- Discharge Diagnoses Current Active Problems: Current Active and Chronic Problems (Last Reviewed 12/11/18 @ 11:55 by Beto Dennis MD) Respiratory failure (Acute) CHF exacerbation (Chronic) Chronic kidney disease (Chronic) You will use the following diet at home:: Fluid restricted (specify 2000 mls, 1500 mls) - 45 OZ fluid daily restriction Discharge Activity: Return to Normal Activity Call your doctor if you observe: Shortness of breath, Dizziness, Fainting spells, Chest pain Allergies/Adverse Reactions: Allergies dronedarone [From Multaq] Allergy (Severe, Verified 01/10/19 17:08) difficulty breathing dronedarone HCl [From Multaq] Allergy (Verified 01/10/19 17:08) Other unable to breath levofloxacin [From Levaquin] Adverse Reaction (Severe, Verified 01/10/19 17:08) hallucinations, hot flashes quinapril [From Accupril] Adverse Reaction (Severe, Verified 01/10/19 17:08) near syncope cortisone Adverse Reaction (Intermediate, Verified 01/10/19 17:08) swelling hydralazine Adverse Reaction (Intermediate, Verified 01/10/19 17:08) weakness Beta-Blockers (Beta-Adrenergic Bloc Adverse Reaction (Verified 01/10/19 17:08) Other WHEEZING, shaking, passes out CARDURA Allergy (Uncoded 01/10/19 17:08) Other PT NOT SURE- POSSIBLE SWELLING NORVASC Allergy (Uncoded 01/10/19 17:08) Swelling SCALLOPS Allergy (Uncoded 01/10/19 17:08) Swelling SULFA Allergy (Uncoded 01/10/19 17:08) Other SPOTS IN MOUTH/SORE MOUTH ATIVAN Adverse Reaction (Uncoded 01/10/19 17:08) Other HALLUCINATIONS METATOPOLOL TARTATE Adverse Reaction (Uncoded 01/10/19 17:08) Other Medications to take at Discharge Albuterol Inhaler [Ventolin Hfa] 2 puff INHALATION Q4H PRN PRN #1 inhaler 10/27/14 Aspirin E.C. [Ecotrin] 81 mg PO QHS 01/07/18 Albuterol Aerosols [Ventolin Aerosols] 3 ml INHALATION BID 06/22/18 Multivit-Min/Iron/Folic/Lutein [Centrum Silver Women Tablet] 1 tab PO DAILY 06/22/18 levothyroxine 88 mcg tablet 88 mcg PO DAILY 30 Days #90 tab 07/27/18 insulin lispro (U- 100) 100 unit/mL subcutaneous pen See Protocol SC .with meals ml 09/29/18 Lecithin, Soy [Lecithin] 1,200 mg PO DAILY 11/23/18 Warfarin Sodium 3 mg PO SUWETHFRSA 11/23/18 Warfarin Sodium [Coumadin] 4 mg PO MOTU 11/23/18 Calcitriol [Rocaltrol] 0.25 mcg PO MOWEFR cap 11/25/18 Fluticasone/Umeclidin/Vilanter [Trelegy Ellipta 100-62.5-25] 1 ea IH DAILY #1 inhaler 11/26/18 Guaifenesin [Mucinex] 1,200 mg PO BID #20 tab 11/26/18 Insulin Lispro [Humalog KwikPen] 10 unit SUBCUT TIDAC #1 insuln.pen 11/26/18 loratadine 10 mg capsule 10 mg PO QDAY #30 cap 12/10/18 montelukast 10 mg tablet 10 mg PO QPM #30 tab 12/10/18 amiodarone 200 mg tablet 100 mg PO DAILY #45 tab 12/28/18 Insulin Glargine [Lantus SoloStar Pen] 40 units SC DAILY 01/10/19 Bumetanide [Bumex] 2 mg PO BIDLX #60 tab 01/18/19 The following prescriptions were given: Bumetanide [Bumex] 2 mg PO BIDLX #60 tab Transmission Status: Pending to [facility] Primary Care Physician: Jovana Moulton MD [Primary Care Provider] - Please follow up with your Primary Care Physician in: 1 Week Test Results: Test results from this visit will be discussed in further detail at your follow-up appointment, if applicable. Please Follow Up With: Danna Blas PA When: 1-2 Weeks Please Follow Up With: Vicky Arzate NP-C When: As scheduled, 04/19/2019 Please Follow Up With: Magdy Flores MD When: 1 Week Proposed Discharge Date: 01/18/19
--- NOTE | 2019-01-18 10:39 | DS.PCM_ITS ---
<Lisha Meneses - Last Filed: 01/18/19 10:49> Discharge Date and Diagnosis Date of Admission: 01/10/19 Date of Discharge: 01/18/19 - Primary Discharge Diagnosis Active and Suspected Problems (Last Reviewed 12/11/18 @ 11:55 by Beto Dennis MD) 1. Acute on chronic hypoxic respiratory failure secondary to acute on chronic diastolic CHF 2. Acute on chronic diastolic CHF 3. Chronic COPD 4. CAD status post CABG 5. Type 2 diabetes mellitus 6. Paroxysmal atrial fibrillation 7. Hypertension 8. Chronic kidney disease stage IV 9. Status post mitral valve replacement with bioprosthetic valve 10. Hypothyroidism 11. Chronic foot diabetic wounds/ulcerations 12. MAGALI - Secondary Discharge Diagnosis Chronic Problems (Last Reviewed 12/11/18 @ 11:55 by Beto Dennis MD) Venous insufficiency of both lower extremities (Chronic) CHF exacerbation (Chronic) COPD exacerbation (Chronic) Chronic kidney disease (Chronic) Secondary pulmonary arterial hypertension (Chronic) Chronic diastolic (congestive) heart failure (Chronic) Essential (primary) hypertension (Chronic) Non-rheumatic mitral valve stenosis (Chronic) H/O coronary 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) CABG x 1 : SVG to distal LAD 09/29/2014 Atherosclerosis of coronary artery of [place] heart without angina pectoris (Chronic) CABG x 1 : SVG to distal LAD 09/29/2014 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 Angela Alexis History of mitral valve replacement with bioprosthetic valve (Chronic 09/29/14) 09/29/2014: MVR with 27 mm Medtronic tisue valve per Dr. Angela Alexis Hyperlipidemia (Chronic) Hospital Course and Treatment Imaging Results: Diagnostic Data Chest X-Ray 01/16/19 13:15 IMPRESSION: No active intrathoracic disease unchanged since the study of January 12, 2019 Electronically Signed: Kristian Mccauley, at 13:56 EDT Tel , Service support , Consultations 01/10/19 19:23 Consult: Onc/Wound/training and development head Routine Comment: Dr. Curtis- Pulmonary Medicine Dr. Flores- Nephrology Operations: None Procedures: 2-D Echocardiogram Summary of Care Provided: The patient is a 78 year old F admitted 01/10/2019 due to shortness of breath, lower extremity swelling. 1. Acute on chronic hypoxic respiratory failure secondary to acute on chronic diastolic CHF-patient chronically wears 2 L nasal cannula at bedtime and as needed. Continue supplement oxygen to maintain O2 at or above 90%. Initially on BiPAP on admission. Oxygen now stable on room air. 2. Acute on chronic diastolic CHF-echocardiogram with EF 65%, mild to moderate tricuspid valve insufficiency, mild to moderate pulmonic valve insufficiency, RVSP estimated to be 72 mmHg. Strict I&O. Daily weight. Patient previously on Lasix 40 mg twice daily and reports 20 pound weight gain while on this regimen. Fluid restriction. Transition to Bumex 2 mg PO BID per nephrology recommendations. -20 pounds since admission per documentation. Follow-up with primary care provider in 1 week. Follow-up with cardiology in 1 to 2 weeks. 3. Chronic COPD-no acute exacerbation. 4. CAD status post CABG-continue aspirin, Not on statin. 5. Type 2 diabetes mellitus-continue home insulin regimen. 6. Paroxysmal atrial fibrillation-continue amiodarone, Coumadin. 7. Hypertension-stable, losartan regimen discontinued. Patient will need further outpatient monitoring of blood pressure. May need additional oral agent. 8. Chronic kidney disease stage IV-follows with Dr. Ulloa. Baseline creatinine 1.9-2.5. Creatinine at baseline. No HERNAN. Nephrology consulted during admission, patient would like to switch to Dr. Flores. Follow-up with nephrology in 1 week. 9. Status post mitral valve replacement with bioprosthetic valve-stable per echo as noted above. 10. Hypothyroidism-continue Synthroid regimen. 11. Chronic foot diabetic wounds/ulcerations-left heel, left superior foot, and right great toe ulcerations, present on admission. Continue dry dressing daily to left dorsal foot and right plantar surface of the great toe. Mendez wraps bilateral lower extremities. Elevate as much as possible. 12. MAGALI-noncompliant with CPAP regimen. Encouraged CPAP use. General: Alert, Oriented x3, Cooperative HEENT: Atraumatic, PERRLA, EOMI, Normocephalic Neck: Supple, No JVD, Negative Carotid Bruits Lungs: Clear to auscultation, Diminished Cardiovascular: Regular Rhythm, Normal S1, Normal S2, No murmurs, Bradycardic Abdomen: Bowel Sounds Present, Soft, Non Tender, Non-Distended Extremities: No clubbing, No cyanosis, No edema, Capillary Refill Less than 3 Seconds, - - Lower extremity edema resolved Skin: - - Chronic skin changes bilateral lower extremities Musculoskeletal: No Tenderness to Palpation of Joints or Extremities Neurological: Cranial nerves II-XII grossly intact, Neuro grossly intact Psych/Mental Status: Anxious Patient seen and examined prior to discharge. Physical assessment as noted above. Patient is stable for discharge with follow up recommendations as noted above. Patient initially wanted to go to TCU for further rehab. She then felt well enough to go home with home health and declines TCU. This patient was seen by JOSE ANGEL Null under the supervision of Dr. Villarreal. - Physical Exam Vital Signs Temp Pulse Resp BP Pulse Ox 98.1 F 55 L 18 144/55 H 98 01/18/19 08:52 01/18/19 08:52 01/18/19 08:52 01/18/19 08:52 01/18/19 08:52 Oxygen Flow Rate (L/min) 2 Oxygen Delivery Method Room Air Weight: 169 lb 1.513 oz Body Mass Index (BMI) 33.5 Finger Stick Blood Glucose 257 Intake and Output for Last 24 Hours 01/16/19 01/17/19 01/18/19 23:59 23:59 23:59 Intake Total 610 / 610 540 / 540 340 / 340 Output Total 2600 / 2600 1800 / 1800 500 / 500 Balance -1989 / -1989 -1260 / -1260 -160 / -160 Laboratory Tests Past 24 Hrs 01/18/19 05:30 Sodium 136 Potassium 3.6 Chloride 93 L Carbon Dioxide 33.0 H Anion Gap 10 BUN 90 H Creatinine 2.65 H Estim Creat Clear Calc 14.71 Est GFR (MDRD) Af Amer 22 L Est GFR (MDRD) Non-Af 19 L BUN/Creatinine Ratio 34.0 H Glucose 156 H Calcium 8.4 L POC Glucose 01/18/19 01/17/19 01/17/19 06:31 22:06 16:20 POC Glucose 169 H 174 H 126 H 01/17/19 11:51 POC Glucose 193 H Discharge Diet: Low fat/ Low Cholesterol, - - 45 oz fluid restriction Discharge Activity: Return to Normal Activity Call your doctor if you observe: Shortness of breath, Dizziness, Fainting spells, Chest pain Home Medications: Medications to take at Discharge Albuterol Inhaler [Ventolin Hfa] 2 puff INHALATION Q4H PRN PRN #1 inhaler 10/27/14 Aspirin E.C. [Ecotrin] 81 mg PO QHS 01/07/18 Albuterol Aerosols [Ventolin Aerosols] 3 ml INHALATION BID 06/22/18 Multivit-Min/Iron/Folic/Lutein [Centrum Silver Women Tablet] 1 tab PO DAILY 06/22/18 levothyroxine 88 mcg tablet 88 mcg PO DAILY 30 Days #90 tab 07/27/18 insulin lispro (U- 100) 100 unit/mL subcutaneous pen See Protocol SC .with meals ml 09/29/18 Lecithin, Soy [Lecithin] 1,200 mg PO DAILY 11/23/18 Warfarin Sodium 3 mg PO SUWETHFRSA 11/23/18 Warfarin Sodium [Coumadin] 4 mg PO MOTU 11/23/18 Calcitriol [Rocaltrol] 0.25 mcg PO MOWEFR cap 11/25/18 Fluticasone/Umeclidin/Vilanter [Trelegy Ellipta 100-62.5-25] 1 ea IH DAILY #1 inhaler 11/26/18 Insulin Lispro [Humalog KwikPen] 10 unit SUBCUT TIDAC #1 insuln.pen 11/26/18 loratadine 10 mg capsule 10 mg PO QDAY #30 cap 12/10/18 montelukast 10 mg tablet 10 mg PO QPM #30 tab 12/10/18 amiodarone 200 mg tablet 100 mg PO DAILY #45 tab 12/28/18 Insulin Glargine [Lantus SoloStar Pen] 40 units SC DAILY 01/10/19 Bumetanide [Bumex] 2 mg PO BIDLX #60 tab 01/18/19 Guaifenesin [Mucinex] 1,200 mg PO BID #60 tab 01/18/19 Following Prescrptions Were Given to Patient: Bumetanide [Bumex] 2 mg PO BIDLX #60 tab Transmission Status: Received by [facility] Guaifenesin [Mucinex] 1,200 mg PO BID #60 tab Transmission Status: Received by [facility] Primary Care Physician: Jovana Moulton MD [Primary Care Provider] - Please follow up with your Primary Care Physician in: 1 Week Please Follow Up With: Danna Blas PA When: 1-2 Weeks Please Follow Up With: Vicky Arzate NP-C When: As scheduled, 04/19/2019 Please Follow Up With: Magdy Flores MD When: 1 Week Disposition: Home with Home Health Minutes spent on discharge:: 35 Patient Condition:: Stable Medical Necessity - Tobacco Use Smoking Status: Never smoker Meaningful Use Info Meaningful Use Diagnoses (Choose all that apply): CHF - CHF MENDEZ/ARB ordered at discharge?: Yes Reason MENDEZ/ARB not ordered?: Worsening renal function Documented LVEF (%): 65 <Vanessa Villarreal - Last Filed: 01/18/19 16:06> Discharge Date and Diagnosis - Secondary Discharge Diagnosis Chronic Problems (Last Reviewed 12/11/18 @ 11:55 by Beto Dennis MD) Venous insufficiency of both lower extremities (Chronic) CHF exacerbation (Chronic) COPD exacerbation (Chronic) Chronic kidney disease (Chronic) Secondary pulmonary arterial hypertension (Chronic) Chronic diastolic (congestive) heart failure (Chronic) Essential (primary) hypertension (Chronic) Non-rheumatic mitral valve stenosis (Chronic) H/O coronary 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) CABG x 1 : SVG to distal LAD 09/29/2014 Atherosclerosis of coronary artery of [place] heart without angina pectoris (Chronic) CABG x 1 : SVG to distal LAD 09/29/2014 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 Angela Mathis [facility] History of mitral valve replacement with bioprosthetic valve (Chronic 09/29/14) 09/29/2014: MVR with 27 mm Medtronic tisue valve per Dr. Angela Mathis [place] Hyperlipidemia (Chronic) Hospital Course and Treatment Consultations 01/10/19 19:23 Consult: Onc/Wound/training and development head Routine Comment: Summary of Care Provided: This patient was seen in conjunction with Lisha Meneses NP. I have independently interviewed and examined the patient and reviewed pertinent historical, laboratory, and other data. Please refer to her note for patient's presentation, findings, and recommendations. 77-year-old female with past medical history of chronic diastolic CHF/moderate to severe pulmonary hypertension/mitral valve replacement with bioprosthetic/paroxysmal atrial fibrillation/CKD stage III/chronic venous stasis dermatitis with bilateral leg ulcer who comes in with progressive shortness of breath over the last 1 to 2 days. Patient admits that she is gained about 20 pounds in the first week since her last discharge. She was able to lose 4 pounds but was unable to lose the last 16 pounds. Her management was acute on chonic CHF. Patient was able to lose about 20 pounds during this admission. She was initially on Lasix and transitioned to Bumex. The day of discharge, she felt improved, denied any chest pain no dizziness or shortness of breath. She felt a little fatigued but ready to go home Point review of systems was negative. Vitals were reviewed -stable Labs reviewed: Discharge creatinine was 2.65. Physical Exam: Gen: Comfortable, not pale, not jaundiced, alert oriented x3 CVS:HS I +II, regular, no murmurs RESP: Diminished at lung bases, few scattered wheezes GI: BS present and normal, nontender, no palpable organs EXT: Chronic venous stasis changes to the lower extremity, no edema ASSESSMENT: 1. Acute on chronic episode respiratory failure essential acute on chronic diastolic CHF 2. Acute on chronic diastolic CHF 3. Severe pulmonary hypertension 4. Status post mitral valve replacement with bioprosthetic 5. Paroxysmal atrial fibrillation 6. Type II DM 7. CAD s/p CABG Meds reviewed I had a long conversation with the patient concerning compliance with fluid restriction, low-sodium diet. She requested dietitian to talk to her one more time about dietary options with acute CHF. - Physical Exam Vital Signs Temp Pulse Resp BP Pulse Ox 98.1 F 58 L 18 144/55 H 98 01/18/19 08:52 01/18/19 12:00 01/18/19 08:52 01/18/19 08:52 01/18/19 08:52 Oxygen Flow Rate (L/min) 2 Oxygen Delivery Method Room Air Weight: 76.7 kg Body Mass Index (BMI) 33.5 Finger Stick Blood Glucose 257 Intake and Output for Last 24 Hours 01/16/19 01/17/19 01/18/19 23:59 23:59 23:59 Intake Total 610 / 610 540 / 540 580 / 580 Output Total 2600 / 2600 1800 / 1800 500 / 500 Balance -1989 / -1989 -1260 / -1260 80 / 80 Laboratory Tests Past 24 Hrs 01/18/19 05:30 Sodium 136 Potassium 3.6 Chloride 93 L Carbon Dioxide 33.0 H Anion Gap 10 BUN 90 H Creatinine 2.65 H Estim Creat Clear Calc 14.71 Est GFR (MDRD) Af Amer 22 L Est GFR (MDRD) Non-Af 19 L BUN/Creatinine Ratio 34.0 H Glucose 156 H Calcium 8.4 L POC Glucose 01/18/19 01/18/19 01/17/19 11:25 06:31 22:06 POC Glucose 229 H 169 H 174 H 01/17/19 16:20 POC Glucose 126 H Code Visit Inpatient E&M: 39208 Disch Hosp
--- NOTE | 2019-01-18 10:47 | CASEMGMT ---
Addendum entered by Nette Nicolas 01/18/19 13:37: Per RN, speech therapy switched pt to nectar thick liquids and pt needs to be set up with speech therapy at discharge. ST added to [facility] order at this time and Daisy at [facility] aware that speech has been added, voices understanding. [place] PORTILLO CM Original Note: This RN CM to room to f/u on discharge plan as pt is now telling DRAW OPERATOR that she wants to go home. Pt states that she would like to go home at this time and is still agreeable to [facility] RN but declines therapy at this time. Message left with Daisy at [facility] in regards to same at this time and order was already placed previously. Pt states no further questions/concerns/needs at this time. [place] PORTILLO CM
--- NOTE | 2019-01-18 11:02 | PHA.DC.COU ---
Pharmacy Services has performed discharge medication counseling for this patient. The patient was counseled on the following discharge medications and changes in medications for homegoing review. The Reason for Use, instructions for use, and potential side effects were reviewed for all new medications. The patient's questions regarding all of their medications were answered. The patient was able to verbally demonstrate an understanding of their discharge medications. Home Medications Albuterol Inhaler [Ventolin Hfa] 2 puff INHALATION Q4H PRN PRN #1 inhaler 10/27/14 Aspirin E.C. [Ecotrin] 81 mg PO QHS 01/07/18 Albuterol Aerosols [Ventolin Aerosols] 3 ml INHALATION BID 06/22/18 Multivit-Min/Iron/Folic/Lutein [Centrum Silver Women Tablet] 1 tab PO DAILY 06/22/18 levothyroxine 88 mcg tablet 88 mcg PO DAILY 30 Days #90 tab 07/27/18 insulin lispro (U- 100) 100 unit/mL subcutaneous pen See Protocol SC .with meals ml 09/29/18 Lecithin, Soy [Lecithin] 1,200 mg PO DAILY 11/23/18 Warfarin Sodium 3 mg PO SUWETHFRSA 11/23/18 Warfarin Sodium [Coumadin] 4 mg PO MOTU 11/23/18 Calcitriol [Rocaltrol] 0.25 mcg PO MOWEFR cap 11/25/18 Fluticasone/Umeclidin/Vilanter [Trelegy Ellipta 100-62.5-25] 1 ea IH DAILY #1 inhaler 11/26/18 Guaifenesin [Mucinex] 1,200 mg PO BID #20 tab 11/26/18 Insulin Lispro [Humalog KwikPen] 10 unit SUBCUT TIDAC #1 insuln.pen 11/26/18 loratadine 10 mg capsule 10 mg PO QDAY #30 cap 12/10/18 montelukast 10 mg tablet 10 mg PO QPM #30 tab 12/10/18 amiodarone 200 mg tablet 100 mg PO DAILY #45 tab 12/28/18 Insulin Glargine [Lantus SoloStar Pen] 40 units SC DAILY 01/10/19 Bumetanide [Bumex] 2 mg PO BIDLX #60 tab 01/18/19
[2019-01-18 11:45] LABS: Bedside Glucose 229 mg/dL (70-110)
--- NOTE | 2019-01-18 13:06 | PCM.PN.REN ---
Subjective: Good diuresis euvolumic now - Physical Exam General: Alert, Oriented x3, Cooperative HEENT: Atraumatic, PERRLA, EOMI, Normocephalic Neck: Supple, No JVD, Negative Carotid Bruits Lungs: Clear to auscultation, Normal air movement Cardiovascular: Regular rate, No murmurs Abdomen: Bowel Sounds Present, Soft, Non Tender Extremities: No edema, Capillary Refill Less than 3 Seconds Skin: No rashes, No breakdown Musculoskeletal: No Tenderness to Palpation of Joints or Extremities Neurological: Cranial nerves II-XII grossly intact Psych/Mental Status: Normal Affect, Appropriate Vital Signs Temp Pulse Resp BP Pulse Ox 98.1 F 58 L 18 144/55 H 98 01/18/19 08:52 01/18/19 12:00 01/18/19 08:52 01/18/19 08:52 01/18/19 08:52 Oxygen Flow Rate (L/min) 2 Oxygen Delivery Method Room Air Weight: 76.7 kg Body Mass Index (BMI) 33.5 Finger Stick Blood Glucose 257 Intake and Output for Last 24 Hours 01/16/19 01/17/19 01/18/19 23:59 23:59 23:59 Intake Total 610 / 610 540 / 540 580 / 580 Output Total 2600 / 2600 1800 / 1800 500 / 500 Balance -1989 / -1989 -0 / -1260 80 / 80 Laboratory Tests Past 24 Hrs 01/18/19 05:30 Sodium 136 Potassium 3.6 Chloride 93 L Carbon Dioxide 33.0 H Anion Gap 10 BUN 90 H Creatinine 2.65 H Estim Creat Clear Calc 14.71 Est GFR (MDRD) Af Amer 22 L Est GFR (MDRD) Non-Af 19 L BUN/Creatinine Ratio 34.0 H Glucose 156 H Calcium 8.4 L POC Glucose 01/18/19 01/18/19 01/17/19 11:25 06:31 22:06 POC Glucose 229 H 169 H 174 H 01/17/19 16:20 POC Glucose 126 H Medical Necessity - Tobacco Use Smoking Status: Never smoker Assessment/Plan All Active Problems (Last Reviewed 12/11/18 @ 11:55 by Beto Dennis MD) Ulcer of left lower extremity with fat layer exposed (Acute) Respiratory failure (Acute) Wheeze (Acute) Ischemic cerebrovascular accident (CVA) (Resolved) Subdural bleeding (Resolved) 1- 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 from CRS and DNP worsening kidney function is most probably related to cardiorenal syndrome. Responded on bumex drip solute plateau creatinine will increase for 72 hrs discontinue bumex drip onbumex 2mg IVQ8 continue Zaroxlyn Please avoid BETZAIDA inhibitor or ARB with diuresis. no need for CUT TOBACCO BULKER Will monitor kidney function with diuresis 2- HTN: BP is well controlled continue same BP meds Avoid ACEI/ARN 3- edema : worsening. I will add metolazone as above low sodium diet of 2000 mg PO daily fluid restriction of 45 oz daily continue daily weight
[2019-01-18 16:41] LABS: Bedside Glucose 146 mg/dL (70-110)
== END 2019-01-18 18:55 | disposition home or self-care (01) | DRG 291 ==
LOC: ED 18:12 → PCU 18:17
PROVIDERS: Hospitalist; Internal Medicine; Internal Medicine Critical Care Medicine; Nurse Practitioner Family; Admitting Provider Internal Medicine; Emergency Provider Emergency Medicine; Family Provider Internal Medicine; PCP Internal Medicine; Visit Provider Internal Medicine
DX: I13.0 Hypertensive heart and chronic kidney disease with heart failure and stage 1 through stage 4 chronic kidney disease, or unspecified chronic kidney disease (principal); I50.33 Acute on chronic diastolic (congestive) heart failure; J96.21 Acute and chronic respiratory failure with hypoxia; N17.9 Acute kidney failure, unspecified; N18.4 Chronic kidney disease, stage 4 (severe); L97.429 Non-pressure chronic ulcer of left heel and midfoot with unspecified severity; N25.81 Secondary hyperparathyroidism of renal origin; E11.65 Type 2 diabetes mellitus with hyperglycemia; E11.22 Type 2 diabetes mellitus with diabetic chronic kidney disease; Z95.1 Presence of aortocoronary bypass graft; Z95.3 Presence of xenogenic heart valve; E03.9 Hypothyroidism, unspecified; Z99.81 Dependence on supplemental oxygen; I87.2 Venous insufficiency (chronic) (peripheral); I25.10 Atherosclerotic heart disease of native coronary artery without angina pectoris; G47.33 Obstructive sleep apnea (adult) (pediatric); I48.0 Paroxysmal atrial fibrillation; E11.621 Type 2 diabetes mellitus with foot ulcer; L97.519 Non-pressure chronic ulcer of other part of right foot with unspecified severity; Z91.19 Patient's noncompliance with other medical treatment and regimen; I27.21 Secondary pulmonary arterial hypertension; Z79.4 Long term (current) use of insulin; J44.9 Chronic obstructive pulmonary disease, unspecified; Z51.81 Encounter for therapeutic drug level monitoring; Z79.01 Long term (current) use of anticoagulants; Z79.899 Other long term (current) drug therapy; L97.511 Non-pressure chronic ulcer of other part of right foot limited to breakdown of skin
CPT/HCPCS: 36415; 36600; 71045; 80048; 80053; 82803; 82947; 82962; 83036; 83735; 83880; 83970; 84100; 84443; 84481; 84484; 85025; 85027; 85610; 87633; 92610; 93005; 93306; 94002; 94640; 94668; 97110; 97116; 97162; 97530; 97802; 99285; A4216; J1940

== ENCOUNTER 2019-01-25 12:35 | Outpatient (RCR) | payer MEDICARE, SELFPAY ==
[2018-10-23 14:48] VITALS: BMI 30.9
[2019-01-25 12:27] VITALS: BMI 33.5
[2019-01-25 13:40] LABS: International Normalized Ratio 2.4; Prothrombin Time (Protime)PT. 26.2 SECONDS (11.7-14.9)
[2019-01-25 13:43] LABS: Anion Gap 4 (5-15); BUN 115 mg/dL (7-18); BUN/Creat Ratio 35.8 RATIO (10-20); Calcium,Total 9.1 mg/dL (8.5-10.1); Chloride 96 mmol/L (98-107); Creatinine, Serum 3.21 mg/dL (0.55-1.02); EST Glomerular Filtration Rate 15 mL/min (>60); Est Glom Filt Rate - Afr Amer 18 mL/min (>60); Glucose 116 mg/dL (74-106); Potassium 3.4 mmol/L (3.5-5.1); Sodium Level 136 mmol/L (136-145)
== END 2019-02-24 17:20 | disposition home or self-care (01) ==
LOC: LAB 12:35
PROVIDERS: Physician Assistant Medical; Family Provider Internal Medicine; PCP Internal Medicine; Referring Provider Internal Medicine Cardiovascular Disease; Visit Provider Internal Medicine Cardiovascular Disease
DX: N18.9 Chronic kidney disease, unspecified (principal); I48.0 Paroxysmal atrial fibrillation; Z79.01 Long term (current) use of anticoagulants; Z51.81 Encounter for therapeutic drug level monitoring
CPT/HCPCS: 36415; 80048; 85610

== ENCOUNTER → 2019-02-01 | Outpatient (CLI) | payer MEDICARE, SELFPAY ==
[2019-01-25 12:27] VITALS: BMI 33.5
[2019-02-01 13:52] LABS: BUN 70 mg/dL (7-18); Creatinine, Serum 2.66 mg/dL (0.55-1.02); Glucose 193 mg/dL (74-106)
[2019-02-01 13:53] LABS: Albumin, Serum 3.3 g/dL (3.2-5.0); BUN/Creat Ratio 26.3 RATIO (10-20); Calcium,Total 8.8 mg/dL (8.5-10.1); Chloride 99 mmol/L (98-107); EST Glomerular Filtration Rate 18 mL/min (>60); Est Glom Filt Rate - Afr Amer 22 mL/min (>60); Phosphorus 3.3 mg/dL (2.5-4.9); Potassium 4.3 mmol/L (3.5-5.1); Sodium Level 139 mmol/L (136-145)
== END | disposition home or self-care (01) ==
LOC: LAB 12:41
PROVIDERS: Family Provider Internal Medicine; PCP Internal Medicine; Referring Provider Internal Medicine Nephrology; Visit Provider Internal Medicine Nephrology
DX: N18.4 Chronic kidney disease, stage 4 (severe) (principal)
CPT/HCPCS: 36415; 80069

== ENCOUNTER 2019-02-03 14:34 | Observation (INO) | payer MEDICARE, SELFPAY ==
[2019-02-03] VITALS (7 sets, daily range): BP systolic 129–148; BP diastolic 48–83; PULSE 54–65; RESP 16–24; TEMP 36.8–36.9; O2SAT 80–97; BMI 30.1; BMI 30.7
--- NOTE | 2019-02-03 15:36 | ED.VIS.GEN ---
History of Present Illness Chief Complaint: Hypoglycemia Detail of Chief Complaint: Administered Humalog instead of Lantus Informant: Patient, Family, Significant Other Onset: Today, Hours Context: Sudden Onset Timing: Continuous Quality: Easily patient has no symptoms of hypoglycemia Current Severity: - - Unknown Maximum Severity: - - Unknown Worsened by: Restriction of short acting versus long-acting insulin Relieved by: Food Associated Symptoms: No associated symptoms Narrative: Possibly 30 minutes prior to arrival patient demonstrate 43 units of Humalog insulin subcu instead of her regular dose of Lantus. She presents to the emergency department. Presently she has no complaints. Presently she is eating peanut butter with crackers and drinking orange juice. First blood sugar was greater than 200. We will repeat blood sugar at 1540. Prior similar symptoms: No Recent Illness/Hospitalization: No - Past Medical History (1) Atherosclerosis of coronary artery of [place] heart without angina pectoris Status: Chronic Comment: CABG x 1 : SVG to distal LAD 09/29/2014 (2) COPD exacerbation Status: Chronic (3) Chronic diastolic (congestive) heart failure Status: Chronic (4) Chronic hypoxemic respiratory failure Status: Chronic (5) Chronic kidney disease Status: Chronic (6) Essential (primary) hypertension Status: Chronic (7) History of maze procedure Status: Chronic Comment: 09/29/2014 atricure pulmonary vein isolation MAZE with ligation of left atrial appendage per Dr. Angela Alexis (8) History of mitral valve replacement with bioprosthetic valve Status: Chronic Comment: 09/29/2014: MVR with 27 mm Medtronic tisue valve per Dr. Angela Alexis (9) Hyperlipidemia Status: Chronic (10) Paroxysmal atrial fibrillation Status: Chronic (11) Ischemic cerebrovascular accident (CVA) Status: Resolved Comment: ischemic stroke w hemorrhagic transformation in the setting of coumadin anticoagulation Past Medical History - Allergies and Home Meds Allergies/Adverse Reactions: Allergies dronedarone [From Multaq] Allergy (Severe, Verified 02/03/19 14:35) difficulty breathing dronedarone HCl [From Multaq] Allergy (Verified 02/03/19 14:35) Other unable to breath levofloxacin [From Levaquin] Adverse Reaction (Severe, Verified 02/03/19 14:35) hallucinations, hot flashes quinapril [From Accupril] Adverse Reaction (Severe, Verified 02/03/19 14:35) near syncope cortisone Adverse Reaction (Intermediate, Verified 02/03/19 14:35) swelling hydralazine Adverse Reaction (Intermediate, Verified 02/03/19 14:35) weakness Beta-Blockers (Beta-Adrenergic Bloc Adverse Reaction (Verified 02/03/19 14:35) Other WHEEZING, shaking, passes out CARDURA Allergy (Uncoded 01/25/19 11:28) Other PT NOT SURE- POSSIBLE SWELLING NORVASC Allergy (Uncoded 01/25/19 11:28) Swelling SCALLOPS Allergy (Uncoded 01/25/19 11:28) Swelling SULFA Allergy (Uncoded 01/25/19 11:28) Other SPOTS IN MOUTH/SORE MOUTH ATIVAN Adverse Reaction (Uncoded 01/25/19 11:28) Other HALLUCINATIONS METATOPOLOL TARTATE Adverse Reaction (Uncoded 01/25/19 11:28) Other Primary Care Physician: Jovana Moulton MD [Primary Care Provider] - Prior records reviewed: Yes Surgical History: angioplasty, cataract, hysterectomy, - - s/p maze procedure, s/p mitral replacement Lives: Spouse/ Significant Other Smoking Status: Never smoker Alcohol: None - Family History Maternal Family History: Family History (Last Reviewed 01/25/19 @ 11:26 by Ely Serrato) Father CAD (coronary artery disease) Hypertension Myocardial infarction Sudden cardiac Hyperlipidemia Mother Breast cancer Brother Cancer Sister Breast cancer Hyperlipidemia Sister Hyperlipidemia Family History: Reports: Cancer Paternal Family History: Family History (Last Reviewed 01/25/19 @ 11:26 by Ely Serrato) Father CAD (coronary artery disease) Hypertension Myocardial infarction Sudden cardiac Hyperlipidemia Mother Breast cancer Brother Cancer Sister Breast cancer Hyperlipidemia Sister Hyperlipidemia Family History: Reports: Heart Disease, Stroke Sibling Family History: Family History (Last Reviewed 01/25/19 @ 11:26 by Ely Serrato) Father CAD (coronary artery disease) Hypertension Myocardial infarction Sudden cardiac Hyperlipidemia Mother Breast cancer Brother Cancer Sister Breast cancer Hyperlipidemia Sister Hyperlipidemia Family History: Reports: Cancer - in brother and sister Review of Systems General: Denies: Chills, Fever, Sweats Eyes: Denies: Visual changes - bilaterally, Blurred Vision - bilaterally, Diplopia ENT: Denies: Rhinorrhea, Sore throat Cardiovascular: Denies: Chest pain, Palpitations Respiratory: Denies: Dyspnea, Cough, Dyspnea on exertion Gastrointestinal: Denies: Abdominal pain, Nausea, Vomiting, Diarrhea, Melena, Hematochezia Genitourinary: Denies: Dysuria, Hematuria, Frequency Musculoskeletal: Denies: Back pain, Extremity Pain Skin: Denies: Rash, Wounds Neurological: Denies: Headache, Weakness, Numbness Endocrine: Denies: Polyuria, Polydipsia Hematologic: Denies: Easy bruising, Easy bleeding Physical Exam Vital Signs/Narrative: Vital Signs Temp Pulse Resp BP Pulse Ox 02/03/19 14:36 98.5 F 55 L 20 H 148/57 H 80 Inital Vital Signs reviewed: Yes General: Well nourished, Well developed, No Acute Distress Head: Normocephalic, Atraumatic Eyes: Perrl, EOMI. Negative for: Pale conjunctiva, Scleral icterus, - ENT: Moist mucous membranes, No rhinorrhea Neck: Supple, Nontender Cardiovascular: Regular rate, Regular rhythm, No murmurs Respiratory: No distress, CTA bilaterally, Chest nontender Skin: Normal color, No rash Neurological: Alert, Oriented x3, Cranial nerves II-XII grossly intact, Normal Strength, Normal Sensation Psychological: Normal affect, Normal Mood Diagnostic/Tx/Re-eval - Medical Decision Making BGT was obtained and is greater than 200. Patient is receiving food and will reassess BGT. Blood glucose test at 1540 is 109. In light of this information patient was started on D5 half-normal saline at 125. We will repeat blood glucose test at 1640. If she drops any further she will require 23-hour observation with hourly monitoring. ED Disposition - Plan for ED Patient: Diagnosis: Hypoglycemia due to insulin Instructions: Diabetic Insulin Reaction Referrals: Jovana Moulton MD [Primary Care Provider] - As Needed
[2019-02-03 15:46] LABS: Bedside Glucose 109 mg/dL (70-110)
[2019-02-03] MEDS: Dext 5%-0.45% NS 1,000 ML 125 ML IV (15:52)
[2019-02-03 16:46] LABS: Bedside Glucose 100 mg/dL (70-110)
--- NOTE | 2019-02-03 17:30 | RAD_ITS ---
STUDY: X-RAY CHEST REASON FOR EXAM: Female, 78 years old. Shortness of breath TECHNIQUE: Frontal view of the chest COMPARISON: 01/16/2019 FINDINGS: The lungs are clear. There are no pleural effusions. There is no pneumothorax. The heart is enlarged, but stable. Again noted are sternotomy wires. There are stable postsurgical changes in the right shoulder. RAD/Chest 1 View (Portable) IMPRESSION: No acute thoracic pathology. Electronically Signed: Kole Rader, at 17:46 EDT Tel , Service support ,
--- NOTE | 2019-02-03 17:31 | EKG12_ITS ---
Test Reason : HYPOGLYCEMIA Blood Pressure : / mmHG Vent. Rate : 052 BPM Atrial Rate : 052 BPM P-R Int : 182 ms QRS Dur : 104 ms QT Int : 510 ms P-R-T Axes : -09 104 090 degrees QTc Int : 474 ms Sinus bradycardia Rightward axis Borderline ECG Confirmed by CAPO IZAGUIRRE, LOIDA ([id number]), technical writer and editor SHIRLENE KOVACS ([id number]) on 02/05/2019 12:29:14 PM Referred By: JACKLYN Confirmed By:ELSY SCANLON MD
[2019-02-03 17:46] LABS: Bedside Glucose 60 mg/dL (70-110)
[2019-02-03] MEDS: Dextrose 50%-Water 25 GM/50 ML DISP.SYRIN IV (17:50)
[2019-02-03 17:53] LABS: Absolute Lymphocyte Count 0.83 X10^3/ul (0.83-4.51); Absolute Neutrophil Count 5.1 X10^3/uL (2.0-7.7); Basophil# 0.06 X10^3/uL; Basophil% 0.6 % (0-1); Eosinophils% 36.6 % (0-5); Hematocrit 33.2 % (37-47); Hemoglobin 10.3 g/dl (12.0-15.0); Lymphocyte # 0.83 X10^3/ul (4.0); Lymphocyte % 8.4 % (19-41); Mean Corpuscular Hgb 25.4 pg (27.0-32.0); Mean Corpuscular Volume 81.8 fL (81-99); Mean Platelet Vol. 11.2 fl (6.2-12.0); Monocyte# 0.28 X10^3/uL; Monocyte% 2.8 % (0-10); Neutrophil # 5.11 X10^3/uL (2.7-7.7); Neutrophil % 51.5 % (47-70); Platelet Count 185 K/mm3 (150-450); RBC Distribution Width CV 16.5 % (11.6-14.6); RBC Distribution Width SD 49.7 fl (35.1-43.9); Red Blood Count 4.06 M/mm3 (4.2-5.4); White Blood Count 9.9 K/mm3 (4.4-11.0)
[2019-02-03 17:55] LABS: Differential Indicated SCAN CRITERIA MET; Eosinophil# 3.63 X10^3/uL; POSITIVE COUNT NO; POSITIVE DIFFERENTIAL YES; POSITIVE MORPHOLOGY NO
[2019-02-03 18:11] LABS: Anion Gap 7 (5-15); BUN 62 mg/dL (7-18); BUN/Creat Ratio 25.7 RATIO (10-20); Calcium,Total 9.1 mg/dL (8.5-10.1); Chloride 101 mmol/L (98-107); Creatinine, Serum 2.41 mg/dL (0.55-1.02); EST Glomerular Filtration Rate 21 mL/min (>60); Est Glom Filt Rate - Afr Amer 25 mL/min (>60); Estimated Creatinine Clearance 16.17 ml/min; Glucose 169 mg/dL (74-106); Potassium 3.9 mmol/L (3.5-5.1); Sodium Level 140 mmol/L (136-145)
[2019-02-03 18:15] LABS: Differential Comment SCANNED
[2019-02-03 18:31] LABS: Bedside Glucose 97 mg/dL (70-110)
[2019-02-03] MEDS: Ipratropium/Albuterol Sulfate 3 ML AMPUL.NEB INHALATION (18:38)
--- NOTE | 2019-02-03 18:39 | HP.PCM_ITS ---
Problem List (1) Hypoglycemia due to insulin Status: Acute (2) Respiratory failure Status: Deleted (3) Chronic kidney disease Status: Chronic Qualifiers: Chronic kidney disease stage: unspecified stage Qualified Code(s): N18.9 - Chronic kidney disease, unspecified (4) Secondary pulmonary arterial hypertension Status: Chronic (5) Chronic diastolic (congestive) heart failure Status: Chronic (6) Ischemic cerebrovascular accident (CVA) Status: Deleted Comment: ischemic stroke w hemorrhagic transformation in the setting of coumadin anticoagulation (7) Essential (primary) hypertension Status: Chronic (8) Chronic hypoxemic respiratory failure Status: Chronic (9) Hyperlipidemia Status: Chronic Qualifiers: Hyperlipidemia type: unspecified Qualified Code(s): E78.5 - Hyperlipidemia, unspecified History of Present Illness Date of Admission: 02/03/19 Chief Complaint: Administered Humalog instead of Lantus insulin. The patient is a 78 year old F with multiple medical comorbidities as mentioned above presented to the emergency room because she took Humalog insulin instead of taking her regular dose of Lantus. Patient stated that she took 43 units of Humalog insulin instead of taking her morning dose of Lantus and she came to the emergency department right after she injected insulin. At the time of arrival to the ED, patient denies any symptoms. She was found to have blood sugar of more than 200. She was given peanut butter with crackers and orange juice. She was monitored in the emergency department and her blood sugar control to drop and it was as low as 60 mg/dL. During this time, she was given dextrose 50% injection as well as dextrose 5% with IV fluids. When her blood sugar went down to 60s, decision was made to admit the patient. Right before admission, patient complained of increasing shortness of breath. She did complain of chronic cough and that was normally for her. Along with the shortness of breath, she was having wheezing as well and mild cough. She denies chest pain, palpitation, dizziness or lightheadedness. She denies fever or chills. After started complaining of shortness of breath, chest x-ray done and revealed questionable minimal pulmonary vascular congestion but it was not different from previous chest x-rays. She has a history of COPD and chronic respiratory failure and she has been on oxygen at 2.5 L at home. She has history of CAD status post CABG and she has been on aspirin and Coumadin. She has a history of paroxysmal atrial fibrillation, has been on amiodarone for rate control and on Coumadin for anticoagulation. Upon arrival to the emergency department, she was afebrile, blood pressure and heart rate were stable, pulse ox was 92% on 4 L and was 80% on room air. Later, patient started to be more short of breath, tachypneic but she remained on 4 L of oxygen. At home, she has been on 2.5 L of oxygen. Her routine blood work was remarkable for chronic anemia with stable hemoglobin, currently elevated and stable BUN and creatinine. Her EKG revealed sinus bradycardia, no acute ischemic changes. Troponin was negative. Chest x-ray reviewed as above. She is being admitted for hypoglycemia due to accidental injection of Humalog insulin instead of Lantus as well as shortness of breath probably due to probable acute COPD exacerbation. Past Medical History Past Medical History (Chronic Problems): Chronic Problems (Last Updated 02/03/19 @ 18:51 by Dejah Singh MD) Venous insufficiency of both lower extremities (Chronic) Chronic kidney disease (Chronic) Secondary pulmonary arterial hypertension (Chronic) Chronic diastolic (congestive) heart failure (Chronic) Essential (primary) hypertension (Chronic) Non-rheumatic mitral valve stenosis (Chronic) H/O coronary 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) CABG x 1 : SVG to distal LAD 09/29/2014 Atherosclerosis of coronary artery of [place] heart without angina pectoris (Chronic) CABG x 1 : SVG to distal LAD 09/29/2014 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 Angela Alexis History of mitral valve replacement with bioprosthetic valve (Chronic 09/29/14) 09/29/2014: MVR with 27 mm Medtronic tisue valve per Dr. Angela Alexis Hyperlipidemia (Chronic) Medical History: Medical History (Last Updated 02/03/19 @ 18:51 by Dejah Singh MD) Secondary pulmonary arterial hypertension (Chronic) I27.21 Chronic diastolic (congestive) heart failure (Chronic) I50.32 Essential (primary) hypertension (Chronic) I10 Non-rheumatic mitral valve stenosis (Chronic) I34.2 Atherosclerosis of coronary artery of [place] heart without angina pectoris (Chronic) I25.10 CABG x 1 : SVG to distal LAD 09/29/2014 Chronic hypoxemic respiratory failure (Chronic) J96.11 Paroxysmal atrial fibrillation (Chronic) I48.0 Hyperlipidemia (Chronic) E78.5 Dyspnea on exertion R06.09 Edema R60.9 Pulmonary hypertension, moderate to severe I27.20 Shortness of breath R06.02 Anemia D64.9 Chronic renal failure N18.9 Depression F32.9 Peripheral vascular disease I73.9 Type 2 diabetes mellitus E11.9 Subdural bleeding (Inactive) I62.00 Allergies dronedarone [From Multaq] Allergy (Severe, Verified 02/03/19 14:35) difficulty breathing dronedarone HCl [From Multaq] Allergy (Verified 02/03/19 14:35) Other unable to breath levofloxacin [From Levaquin] Adverse Reaction (Severe, Verified 02/03/19 14:35) hallucinations, hot flashes quinapril [From Accupril] Adverse Reaction (Severe, Verified 02/03/19 14:35) near syncope cortisone Adverse Reaction (Intermediate, Verified 02/03/19 14:35) swelling hydralazine Adverse Reaction (Intermediate, Verified 02/03/19 14:35) weakness Beta-Blockers (Beta-Adrenergic Bloc Adverse Reaction (Verified 02/03/19 14:35) Other WHEEZING, shaking, passes out CARDURA Allergy (Uncoded 01/25/19 11:28) Other PT NOT SURE- POSSIBLE SWELLING NORVASC Allergy (Uncoded 01/25/19 11:28) Swelling SCALLOPS Allergy (Uncoded 01/25/19 11:28) Swelling SULFA Allergy (Uncoded 01/25/19 11:28) Other SPOTS IN MOUTH/SORE MOUTH ATIVAN Adverse Reaction (Uncoded 01/25/19 11:28) Other HALLUCINATIONS METATOPOLOL TARTATE Adverse Reaction (Uncoded 01/25/19 11:28) Other Home Medications: Ambulatory Orders Medication Instructions Recorded Albuterol Inhaler [Ventolin Hfa] 2 puff INHALATION Q4H PRN PRN #1 10/27/14 inhaler Aspirin E.C. [Ecotrin] 81 mg PO QHS 01/07/18 Albuterol Aerosols [Ventolin 3 ml INHALATION BID 06/22/18 Aerosols] Multivit-Min/Iron/Folic/Lutein 1 tab PO DAILY 06/22/18 [Centrum Silver Women Tablet] levothyroxine 88 mcg tablet 88 mcg PO DAILY 30 Days #90 tab 07/27/18 insulin lispro (U-100) 100 unit/mL See Protocol SC .with meals ml 09/29/18 subcutaneous pen Lecithin, Soy [Lecithin] 1,200 mg PO DAILY 11/23/18 Warfarin Sodium 3 mg PO SUWETHFRSA 11/23/18 Warfarin Sodium [Coumadin] 4 mg PO MOTU 11/23/18 Calcitriol [Rocaltrol] 0.25 mcg PO MOWEFR cap 11/25/18 amiodarone 200 mg tablet 100 mg PO DAILY #45 tab 12/28/18 Insulin Glargine [Lantus SoloStar 35 units SUBCUT DAILY 01/10/19 Pen] alprazolam 0.25 mg tablet 0.125 mg PO BID tab 01/25/19 Bumetanide 1 mg PO BIDLX 02/03/19 Fluticasone/Umeclidin/Vilanter 1 puff INHALATION DAILY 02/03/19 [Trelegy Ellipta 100-62.5-25] Guaifenesin [Mucinex] 1,200 mg PO DAILY 02/03/19 Insulin Lispro [Humalog KwikPen] 8 unit SUBCUT TIDAC 02/03/19 Surgical History: Surgical History (Last Reviewed 01/25/19 @ 11:26 by Ely Serrato) H/O coronary artery bypass surgery (Chronic) Onset Date: 09/29/14 Z95.1 CABG x 1 : SVG to distal LAD 09/29/2014 History of maze procedure (Chronic) Onset Date: 09/29/14 Z98.890 09/29/2014 atricure pulmonary vein isolation MAZE with ligation of left atrial appendage per Dr. Angela Alexis History of mitral valve replacement with bioprosthetic valve (Chronic) Onset Date: 09/29/14 Z95.3 09/29/2014: MVR with 27 mm Medtronic tisue valve per Dr. 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 Lives: Spouse/ Significant Other Smoking Status: Never smoker Alcohol: None Drugs: None - *Family History Maternal Family History: Family History (Last Reviewed 01/25/19 @ 11:26 by Ely Serrato) Father CAD (coronary artery disease) Hypertension Myocardial infarction Sudden cardiac Hyperlipidemia Mother Breast cancer Brother Cancer Sister Breast cancer Hyperlipidemia Sister Hyperlipidemia History Items: Cancer Paternal Family History: Family History (Last Reviewed 01/25/19 @ 11:26 by Ely Serrato) Father CAD (coronary artery disease) Hypertension Myocardial infarction Sudden cardiac Hyperlipidemia Mother Breast cancer Brother Cancer Sister Breast cancer Hyperlipidemia Sister Hyperlipidemia History Items: Heart Disease, Stroke Sibling Family History: Family History (Last Reviewed 01/25/19 @ 11:26 by Ely Serrato) Father CAD (coronary artery disease) Hypertension Myocardial infarction Sudden cardiac Hyperlipidemia Mother Breast cancer Brother Cancer Sister Breast cancer Hyperlipidemia Sister Hyperlipidemia History Items: Cancer - in brother and sister Review of Systems Constitutional: Denies: Anorexia, Chills, Fever, Weakness Eyes: Denies: Blurred vision, Double vision, Drainage, Redness HEENT: Denies: Difficulty Hearing, Ear Pain, Eye Pain, Nasal Congestion, Sore Throat Cardiovascular: Denies: Chest Pain, Chest Pressure, Chest Tightness, Edema, Heaviness, Palpitations, Syncope Respiratory: Reports: Cough, Shortness of Breath, Shortness of breath at rest, Wheezing. Denies: Sputum production Gastrointestinal: Denies: Abdominal Pain, Constipation, Diarrhea, Nausea, Vomiting Genitourinary: Denies: Dysuria, Frequency, Hematuria Musculoskeletal: Denies: Arm Pain, Back Pain, Foot Pain Skin: Denies: Dryness, Rash Neurological: Denies: Balance problems, Change in Speech, Slurred speech, Confusion, Incoordination Psychiatric: Reports: Anxiety. Denies: Depression Endocrine: Denies: Change in Body Habitus, Polydipsia, Polyuria VTE Information - Inpt Only VTE Present on Admission: No VTE Mechan Device Prophylaxis: None VTE Pharm Prophylaxis ordered?: No Patient Problems: Active and Suspected Problems (Last Updated 02/03/19 @ 18:51 by Dejah Singh MD) Hypoglycemia due to insulin (Acute) - Physical Exam General: Alert, Oriented x3, Cooperative, - - Moderately short of breath. HEENT: Atraumatic, PERRLA, EOMI, Normocephalic Oral: Moist Mucosa, No Gingival or Mucosal Lesions/ Ulcerations Neck: Supple, No JVD, Negative Carotid Bruits, Trachea Midline, Thyroid Normal Size and Texture Lungs: No rales, Diminished, Short of Breath, Tachypneic, - - Decreased breath sounds bilateral, bilateral inspiratory and expiratory wheezes. Cardiovascular: Regular rate, Regular Rhythm, Normal S1, Normal S2, PMI Normal, Bradycardic Abdomen: Bowel Sounds Present, Soft, Non Tender, Non-Distended, No Hepato- splenomegaly Extremities: No clubbing, No cyanosis, Edema Skin: No rashes, No breakdown Lymphatic: No Cervical, Supraclavicular, or Inguinal Adenopathy Neurological: Cranial nerves II-XII grossly intact, Motor Exam 5/5 strength throughout Psych/Mental Status: Normal Affect, Anxious, Alert and oriented to time, place, person, mood and affect Vital Signs Temp Pulse Resp BP Pulse Ox 98.5 F 57 L 24 H 129/73 H 96 02/03/19 14:36 02/03/19 14:36 02/03/19 18:30 02/03/19 18:30 02/03/19 18:30 Oxygen Flow Rate (L/min) 4 Oxygen Delivery Method Nasal Cannula Weight: 170 lb Body Mass Index (BMI) 30.1 Finger Stick Blood Glucose 97 Laboratory Tests Past 24 Hrs 02/03/19 02/03/19 17:40 17:40 WBC 9.9 RBC 4.06 L Hgb 10.3 L Hct 33.2 L MCV 81.8 MCH 25.4 L MCHC 31.0 L RDW 16.5 H RDW Differential 49.7 H Plt Count 185 MPV 11.2 Immature Gran % (Auto) 0.100 Neut % (Auto) 51.5 Lymph % (Auto) 8.4 L [place] % (Auto) 2.8 Eos % (Auto) 36.6 H Baso % (Auto) 0.6 Absolute Neuts (auto) 5.1 Absolute Lymphs (auto) 0.83 Total Counted Not Reportable Differential Comment SCANNED Diff Path Review November Sodium 140 Potassium 3.9 Chloride 101 Carbon Dioxide 32.0 Anion Gap 7 BUN 62 H Creatinine 2.41 H Estim Creat Clear Calc 16.17 Est GFR (MDRD) Af Amer 25 L Est GFR (MDRD) Non-Af 21 L BUN/Creatinine Ratio 25.7 H Glucose 169 H Calcium 9.1 Troponin I < 0.015 POC Glucose 02/03/19 02/03/19 02/03/19 18:27 17:41 16:40 POC Glucose 97 60 L 100 02/03/19 15:39 POC Glucose 109 Clinical Impression(s) from Imaging Studies Chest X-Ray 02/03/19 17:30 IMPRESSION: No acute thoracic pathology. Electronically Signed: Kole Rader, at 17:46 EDT Tel , Service support , Assessment/Plan All Active Problems (Last Updated 02/03/19 @ 18:51 by Dejah Singh MD) Hypoglycemia due to insulin (Acute) This is a 78 years old female patient presented to the emergency room because she took 43 units of Humalog insulin instead of Lantus, developed hypoglycemia in the emergency department in spite of giving her D50 as well as D5 with normal saline and diet and she is being admitted for hypoglycemia and also she developed worsening shortness of breath while in the ED with wheezing requiring more oxygen which could be due to probable acute COPD exacerbation. #1 hypoglycemia: Due to injecting Humalog insulin instead of Lantus. Initially, blood sugar was more than 200 and patient received IV D50 as well as D5 but his blood sugar continued to drop. Plan: Admit to PCU, cardiac monitoring, ADA diet, Accu-Cheks q. one hour, encourage oral intake, will try to bring her blood sugar by diet, IV D50 only if necessary, will avoid continuous IV fluids to avoid acute CHF, hold home doses of Lantus and Humalog, PT OT evaluation and treatment. #2 shortness of breath/probable acute COPD exacerbation: Patient developed shortness of breath while in the ED with wheezing. She required more oxygen up to 4 L. At home, she has been on 2.5 L. Chest x-ray done and reviewed, no difference from previous chest x-rays. Patient received IV fluids in the ED but no overt acute CHF on chest x-ray. Plan: IV Lasix x1, DuoNeb every 4 hours, albuterol as needed, incentive sponsor, chest physical therapy, oxygen by nasal cannula as above. #3 chronic diastolic CHF: At this time, I doubt CHF. We will try to avoid IV fluids and will try to bring blood sugar by diet and D50 bolus injection if needed. Plan for IV Lasix 40 mg x 1, continue Bumex, fluid restriction. #4 CAD status post CABG: EKG reviewed, no acute ischemic changes, troponin is negative. Continue aspirin and Coumadin. #5 type 2 diabetes mellitus: Plan as above, Accu-Cheks q. one hour, hold Lantus and Humalog insulin, insulin scale #6 paroxysmal atrial fibrillation: Rate is controlled, continue amiodarone for rate control, continue Coumadin for anticoagulation. Will check INR. #7 stage IV chronic kidney disease: Baseline creatinine has been around 2 to 2.5 mg/dL. Admission creatinine is 2.41, stable at baseline. #8 status post mitral valve replacement with bioprosthetic valve: Stable. #9 hypertension: Blood pressure stable, continue Bumex. #10 hypothyroidism: Continue levothyroxine. #11 DVT prophylaxis: Continue Coumadin, will check INR. This note was generated with [employer] dictation software. It may contain incorrect words, spelling, and punctuation that were not noted in checking the note before signing. Code Visit Inpatient E&M: 68598 Init Hosp L3
[2019-02-03 20:22] LABS: International Normalized Ratio 2.9; Prothrombin Time (Protime)PT. 30.7 SECONDS (11.7-14.9)
[2019-02-03] MEDS: ALPRAZolam 0.25 MG Tablet 0.125 MG PO (21:02)
[2019-02-03] MEDS: Furosemide 40 MG/4 ML Vial IV (21:02)
[2019-02-03] MEDS: Aspirin E.C. 81 MG Tablet PO (21:02)
[2019-02-03 21:56] LABS: Bedside Glucose 111 mg/dL (70-110)
[2019-02-03 21:56] LABS: Bedside Glucose 119 mg/dL (70-110)
[2019-02-03 22:51] LABS: Bedside Glucose 162 mg/dL (70-110)
[2019-02-03 23:10] LABS: Bedside Glucose 186 mg/dL (70-110)
--- NOTE | 2019-02-03 23:59 | NURSING ---
Spoke with Dr. Villarreal, changed BGT orders to Q4 x 8 hours, and then ac/hs. LINDSEY Whiting
[2019-02-04] VITALS (13 sets, daily range): BP systolic 130–148; BP diastolic 56–69; PULSE 52–59; RESP 14–20; TEMP 36.7–36.9; O2SAT 96–99
[2019-02-04 00:11] LABS: Bedside Glucose 192 mg/dL (70-110)
[2019-02-04] MEDS: Ipratropium/Albuterol Sulfate 3 ML AMPUL.NEB INHALATION ×4 (00:17→11:25)
--- NOTE | 2019-02-04 00:54 | CPS ---
Pt. refused instruction on PEP device. Says that it does not help her.
--- NOTE | 2019-02-04 00:55 | CPS ---
Pt. refused instruction on PEP device. Stated that it does not help her. Understands usage and benefits of using therapy.
[2019-02-04 04:06] LABS: Bedside Glucose 227 mg/dL (70-110)
[2019-02-04] MEDS: Levothyroxine 88 MCG Tablet PO (06:28)
[2019-02-04 06:57] LABS: Absolute Lymphocyte Count 0.88 X10^3/ul (0.83-4.51); Absolute Neutrophil Count 5.1 X10^3/uL (2.0-7.7); Basophil# 0.05 X10^3/uL; Basophil% 0.5 % (0-1); Eosinophils% 35.2 % (0-5); Hematocrit 31.1 % (37-47); Hemoglobin 9.7 g/dl (12.0-15.0); Lymphocyte # 0.88 X10^3/ul (4.0); Lymphocyte % 8.7 % (19-41); Mean Corp Hgb Conc 31.2 g/gl (32-36); Mean Corpuscular Hgb 25.7 pg (27.0-32.0); Mean Corpuscular Volume 82.3 fL (81-99); Mean Platelet Vol. 9.6 fl (6.2-12.0); Monocyte# 0.53 X10^3/uL; Monocyte% 5.3 % (0-10); Neutrophil # 5.06 X10^3/uL (2.7-7.7); Neutrophil % 50.1 % (47-70); Platelet Count 150 K/mm3 (150-450); RBC Distribution Width CV 16.8 % (11.6-14.6); RBC Distribution Width SD 51.3 fl (35.1-43.9); Red Blood Count 3.78 M/mm3 (4.2-5.4); White Blood Count 10.1 K/mm3 (4.4-11.0)
[2019-02-04 07:04] LABS: Differential Indicated SCAN CRITERIA MET; Eosinophil# 3.55 X10^3/uL; POSITIVE COUNT NO; POSITIVE DIFFERENTIAL YES; POSITIVE MORPHOLOGY NO
[2019-02-04 07:09] LABS: Anion Gap 10 (5-15); BUN 61 mg/dL (7-18); BUN/Creat Ratio 22.7 RATIO (10-20); Calcium,Total 8.6 mg/dL (8.5-10.1); Chloride 99 mmol/L (98-107); Creatinine, Serum 2.69 mg/dL (0.55-1.02); EST Glomerular Filtration Rate 18 mL/min (>60); Est Glom Filt Rate - Afr Amer 22 mL/min (>60); Estimated Creatinine Clearance 14.49 ml/min; Glucose 246 mg/dL (74-106); Potassium 4.4 mmol/L (3.5-5.1); Sodium Level 139 mmol/L (136-145)
[2019-02-04 07:11] LABS: Differential Comment SCANNED
[2019-02-04 07:36] LABS: Bedside Glucose 220 mg/dL (70-110)
--- NOTE | 2019-02-04 07:42 | NURSING ---
Completed 0600 rounds, and was called back to pt's room after aide helped pt to RR. Pt c/o 10/10 CP under left breast spreading to the rest of her chest, and L arm felt 'pressure' Notified Dr. Villarreal, obtained EKG, and ordered troponins. Pt's CP alleviated after 2-3 minutes. VS did not change during this time. Henok, RN
--- NOTE | 2019-02-04 09:58 | EKG12_ITS ---
Test Reason : CP Blood Pressure : / mmHG Vent. Rate : 056 BPM Atrial Rate : 056 BPM P-R Int : 178 ms QRS Dur : 094 ms QT Int : 518 ms P-R-T Axes : 014 097 090 degrees QTc Int : 499 ms Sinus bradycardia Rightward axis Nonspecific ST and T wave abnormality Prolonged QT Abnormal ECG Confirmed by SAJAN IZAGUIRRE, KENDRICK ([id number]), video news editor SHIRLENE KOVACS ([id number]) on 02/11/2019 10:32:26 AM Referred By: Beto Dennis Confirmed By:KENDRICK MOELLER MD
[2019-02-04] MEDS: Glucerna Shake 120 ML LIQUID PO (11:04)
[2019-02-04] MEDS: ALPRAZolam 0.25 MG Tablet 0.125 MG PO (11:05)
[2019-02-04] MEDS: Bumetanide 2 MG Tablet 1 MG PO (11:05)
[2019-02-04] MEDS: Amiodarone 200 MG Tablet 100 MG PO (11:05)
[2019-02-04] MEDS: guaiFENesin 1,200 MG Tablet 1200 MG PO (11:05)
--- NOTE | 2019-02-04 11:27 | DCINST_ITS ---
- Discharge Diagnoses Current Active Problems: Current Active and Chronic Problems (Last Updated 02/03/19 @ 18:51 by Dejah Singh MD) Hypoglycemia due to insulin (Acute) You will use the following diet at home:: Cardiac Your food should be the consistency of: Regular Your liquids should be the consistency of: Regular/Thin Discharge Activity: Return to Normal Activity Instructions: Diabetic Insulin Reaction Allergies/Adverse Reactions: Allergies dronedarone [From Multaq] Allergy (Severe, Verified 02/03/19 14:35) difficulty breathing dronedarone HCl [From Multaq] Allergy (Verified 02/03/19 14:35) Other unable to breath levofloxacin [From Levaquin] Adverse Reaction (Severe, Verified 02/03/19 14:35) hallucinations, hot flashes quinapril [From Accupril] Adverse Reaction (Severe, Verified 02/03/19 14:35) near syncope cortisone Adverse Reaction (Intermediate, Verified 02/03/19 14:35) swelling hydralazine Adverse Reaction (Intermediate, Verified 02/03/19 14:35) weakness Beta-Blockers (Beta-Adrenergic Bloc Adverse Reaction (Verified 02/03/19 14:35) Other WHEEZING, shaking, passes out CARDURA Allergy (Uncoded 01/25/19 11:28) Other PT NOT SURE- POSSIBLE SWELLING NORVASC Allergy (Uncoded 01/25/19 11:28) Swelling SCALLOPS Allergy (Uncoded 01/25/19 11:28) Swelling SULFA Allergy (Uncoded 01/25/19 11:28) Other SPOTS IN MOUTH/SORE MOUTH ATIVAN Adverse Reaction (Uncoded 01/25/19 11:28) Other HALLUCINATIONS METATOPOLOL TARTATE Adverse Reaction (Uncoded 01/25/19 11:28) Other Medications to take at Discharge Albuterol Inhaler [Ventolin Hfa] 2 puff INHALATION Q4H PRN PRN #1 inhaler 10/27/14 Aspirin E.C. [Ecotrin] 81 mg PO QHS 01/07/18 Albuterol Aerosols [Ventolin Aerosols] 3 ml INHALATION BID 06/22/18 Multivit-Min/Iron/Folic/Lutein [Centrum Silver Women Tablet] 1 tab PO DAILY 06/22/18 levothyroxine 88 mcg tablet 88 mcg PO DAILY 30 Days #90 tab 07/27/18 insulin lispro (U-100) 100 unit/mL subcutaneous pen See Protocol SC .with meals ml 09/29/18 Lecithin, Soy [Lecithin] 1,200 mg PO DAILY 11/23/18 Warfarin Sodium 3 mg PO SUWETHFRSA 11/23/18 Warfarin Sodium [Coumadin] 4 mg PO MOTU 11/23/18 Calcitriol [Rocaltrol] 0.25 mcg PO MOWEFR cap 11/25/18 amiodarone 200 mg tablet 100 mg PO DAILY #45 tab 12/28/18 Insulin Glargine [Lantus SoloStar Pen] 35 units SUBCUT DAILY 01/10/19 alprazolam 0.25 mg tablet 0.125 mg PO BID tab 01/25/19 Bumetanide 1 mg PO BIDLX 02/03/19 Fluticasone/Umeclidin/Vilanter [Trelegy Ellipta 100-62.5-25] 1 puff INHALATION DAILY 02/03/19 Guaifenesin [Mucinex] 1,200 mg PO DAILY 02/03/19 Insulin Lispro [Humalog KwikPen] 8 unit SUBCUT TIDAC 02/03/19 Primary Care Physician: Jovana Moulton MD [Primary Care Provider] - As Needed Please follow up with your Primary Care Physician in: 2 weeks Test Results: Test results from this visit will be discussed in further detail at your follow- up appointment, if applicable. Please Follow Up With: Magdy Flores MD - Keep current appointment When: Today Proposed Discharge Date: 02/04/19
[2019-02-04 11:36] LABS: Bedside Glucose 219 mg/dL (70-110)
[2019-02-04 11:53] LABS: Pathologist Review Reviewed
[2019-02-04 11:56] LABS: Pathologist Review Reviewed
--- NOTE | 2019-02-04 12:05 | CASEMGMT ---
Danna at [facility] aware that pt is OBS and that she will be discharged today, voices understanding. Raleigh PORTILLO CM
[2019-02-04 12:25] LABS: Bedside Glucose 313 mg/dL (70-110)
[2019-02-04] MEDS: Insulin Lispro 100 UNIT/ML INSULN.PEN 8 UNIT SC (12:33)
[2019-02-04] MEDS: Insulin Lispro 100 UNIT/ML INSULN.PEN SC (12:34)
--- NOTE | 2019-02-04 14:33 | PCM.DC.SUM ---
<Sathish Fregoso - Last Filed: 02/04/19 14:33> Discharge Date and Diagnosis Date of Admission: 02/03/19 Date of Discharge: 02/04/19 - Primary Discharge Diagnosis Active and Suspected Problems (Last Updated 02/03/19 @ 18:51 by Dejah Singh MD) Hypoglycemia due to insulin (Acute), accidental overdose COPD, no acute exacerbation Chronic diastolic CHF CKDIV CAD prior CABG T2DM PAfib Hx bioprosthetic mitral valve HTN Hypothyroidism - Secondary Discharge Diagnosis Chronic Problems (Last Updated 02/03/19 @ 18:51 by Dejah Singh MD) Venous insufficiency of both lower extremities (Chronic) Chronic kidney disease (Chronic) Secondary pulmonary arterial hypertension (Chronic) Chronic diastolic (congestive) heart failure (Chronic) Essential (primary) hypertension (Chronic) Non-rheumatic mitral valve stenosis (Chronic) H/O coronary 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) CABG x 1 : SVG to distal LAD 09/29/2014 Atherosclerosis of coronary artery of [place] heart without angina pectoris (Chronic) CABG x 1 : SVG to distal LAD 09/29/2014 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 Angela Alexis History of mitral valve replacement with bioprosthetic valve (Chronic 09/29/14) 09/29/2014: MVR with 27 mm Medtronic tisue valve per Dr. Angela Alexis Hyperlipidemia (Chronic) Hospital Course and Treatment Imaging Results: RAD/Chest 1 View (Portable) IMPRESSION: No acute thoracic pathology. Operations: None Procedures: None Summary of Care Provided: Hospital Course: The patient is a 78 year old F with extensive pmhx as above who presented to the ER after accidently taking the wrong isulin dose. She accidently injected 43 units of humalog in the morning instead of lantus. Her glucose did go down to 60 in the ER and she was given half an amp of D50. She was admitted to the PCU overnight and her insulins were held. Overnight her blood sugars climbed over 200 and her insulins were resumed. She was felt stable for discharge home, and discharged home with home health care. She has a follow up today with Dr. Flores regarding her CKDIV and underlying diuretic therapy. She was advised to keep this appointment. She will also need to see her PCP in 1-2 weeks. This patient was seen by Sathish Fregoso PA-C under the supervision of Dr. Yeager. [] - Physical Exam General: Alert, Oriented x3, Cooperative HEENT: Atraumatic, PERRLA, EOMI, Normocephalic Neck: Supple, No JVD, Negative Carotid Bruits Lungs: Clear to auscultation, Normal air movement Cardiovascular: Regular rate, No murmurs Abdomen: Bowel Sounds Present, Soft, Non Tender Extremities: Capillary Refill Less than 3 Seconds, Edema - 1-2 + pitting edema BLE Skin: No rashes, No breakdown Musculoskeletal: No Tenderness to Palpation of Joints or Extremities Neurological: Cranial nerves II-XII grossly intact Psych/Mental Status: Normal Affect, Appropriate, Alert and oriented to time, place, person, mood and affect Vital Signs Temp Pulse Resp BP Pulse Ox 98.5 F 52 L 14 132/56 H 97 02/04/19 10:55 02/04/19 11:33 02/04/19 11:33 02/04/19 10:55 02/04/19 11:27 Oxygen Flow Rate (L/min) 2.5 Oxygen Delivery Method Nasal Cannula Weight: 173 lb 1.006 oz Body Mass Index (BMI) 30.7 Finger Stick Blood Glucose 97 Intake and Output for Last 24 Hours 02/02/19 02/03/19 02/04/19 23:59 23:59 23:59 Intake Total 500 / 500 295 / 295 Balance 500 / 500 295 / 295 Laboratory Tests Past 24 Hrs 02/03/19 02/03/19 02/03/19 17:40 17:40 17:40 WBC 9.9 RBC 4.06 L Hgb 10.3 L Hct 33.2 L MCV 81.8 MCH 25.4 L MCHC 31.0 L RDW 16.5 H RDW Differential 49.7 H Plt Count 185 MPV 11.2 Immature Gran % (Auto) 0.100 Neut % (Auto) 51.5 Lymph % (Auto) 8.4 L [place] % (Auto) 2.8 Eos % (Auto) 36.6 H Baso % (Auto) 0.6 Absolute Neuts (auto) 5.1 Absolute Lymphs (auto) 0.83 Total Counted Not Reportable Differential Comment SCANNED Diff Path Review Reviewed PT 30.7 H INR 2.9 Sodium 140 Potassium 3.9 Chloride 101 Carbon Dioxide 32.0 Anion Gap 7 BUN 62 H Creatinine 2.41 H Estim Creat Clear Calc 16.17 Est GFR (MDRD) Af Amer 25 L Est GFR (MDRD) Non-Af 21 L BUN/Creatinine Ratio 25.7 H Glucose 169 H Calcium 9.1 Troponin I < 0.015 02/04/19 02/04/19 02/04/19 06:40 06:40 06:40 WBC 10.1 RBC 3.78 L Hgb 9.7 L Hct 31.1 L MCV 82.3 MCH 25.7 L MCHC 31.2 L RDW 16.8 H RDW Differential 51.3 H Plt Count 150 MPV 9.6 Immature Gran % (Auto) 0.200 Neut % (Auto) 50.1 Lymph % (Auto) 8.7 L [place] % (Auto) 5.3 Eos % (Auto) 35.2 H Baso % (Auto) 0.5 Absolute Neuts (auto) 5.1 Absolute Lymphs (auto) 0.88 Total Counted Not Reportable Differential Comment SCANNED Diff Path Review Reviewed PT INR Sodium 139 Potassium 4.4 Chloride 99 Carbon Dioxide 30.0 Anion Gap 10 BUN 61 H Creatinine 2.69 H Estim Creat Clear Calc 14.49 Est GFR (MDRD) Af Amer 22 L Est GFR (MDRD) Non-Af 18 L BUN/Creatinine Ratio 22.7 H Glucose 246 H Calcium 8.6 Troponin I < 0.015 02/04/19 02/04/19 09:38 13:00 WBC RBC Hgb Hct MCV MCH MCHC RDW RDW Differential Plt Count MPV Immature Gran % (Auto) Neut % (Auto) Lymph % (Auto) [place] % (Auto) Eos % (Auto) Baso % (Auto) Absolute Neuts (auto) Absolute Lymphs (auto) Total Counted Differential Comment Diff Path Review PT INR Sodium Potassium Chloride Carbon Dioxide Anion Gap BUN Creatinine Estim Creat Clear Calc Est GFR (MDRD) Af Amer Est GFR (MDRD) Non-Af BUN/Creatinine Ratio Glucose Calcium Troponin I 0.020 < 0.015 POC Glucose 02/04/19 02/04/19 02/04/19 12:23 06:27 04:02 POC Glucose 313 H 220 H 227 H 02/04/19 02/03/19 02/03/19 00:04 23:04 21:53 POC Glucose 192 H 186 H 162 H 02/03/19 02/03/19 02/03/19 20:52 19:54 18:27 POC Glucose 119 H 111 H 97 02/03/19 02/03/19 02/03/19 17:41 16:40 15:39 POC Glucose 60 L 100 109 02/03/19 14:34 POC Glucose 219 H Discharge Diet: Low fat/ Low Cholesterol, 2000 mg Sodium Diet Discharge Activity: Return to Normal Activity Home Medications: Medications to take at Discharge Albuterol Inhaler [Ventolin Hfa] 2 puff INHALATION Q4H PRN PRN #1 inhaler 10/27/14 Aspirin E.C. [Ecotrin] 81 mg PO QHS 01/07/18 Albuterol Aerosols [Ventolin Aerosols] 3 ml INHALATION BID 06/22/18 Multivit-Min/Iron/Folic/Lutein [Centrum Silver Women Tablet] 1 tab PO DAILY 06/22/18 levothyroxine 88 mcg tablet 88 mcg PO DAILY 30 Days #90 tab 07/27/18 insulin lispro (U-100) 100 unit/mL subcutaneous pen See Protocol SC .with meals ml 09/29/18 Lecithin, Soy [Lecithin] 1,200 mg PO DAILY 11/23/18 Warfarin Sodium 3 mg PO SUWETHFRSA 11/23/18 Warfarin Sodium [Coumadin] 4 mg PO MOTU 11/23/18 Calcitriol [Rocaltrol] 0.25 mcg PO MOWEFR cap 11/25/18 amiodarone 200 mg tablet 100 mg PO DAILY #45 tab 12/28/18 Insulin Glargine [Lantus SoloStar Pen] 35 units SUBCUT DAILY 01/10/19 alprazolam 0.25 mg tablet 0.125 mg PO BID tab 01/25/19 Bumetanide 1 mg PO BIDLX 02/03/19 Fluticasone/Umeclidin/Vilanter [Trelegy Ellipta 100-62.5-25] 1 puff INHALATION DAILY 02/03/19 Guaifenesin [Mucinex] 1,200 mg PO DAILY 02/03/19 Insulin Lispro [Humalog KwikPen] 8 unit SUBCUT TIDAC 02/03/19 Primary Care Physician: Jovana Moulton MD [Primary Care Provider] - As Needed Please follow up with your Primary Care Physician in: 2 weeks Please Follow Up With: Magdy Flores MD - Keep current appointment When: Today Patient Instructions: Diabetic Insulin Reaction Disposition: Home with Home Health Minutes spent on discharge:: 35 Patient Condition:: Stable Medical Necessity - Tobacco Use Smoking Status: Never smoker Meaningful Use Info Meaningful Use Diagnoses (Choose all that apply): None applicable <Whit Yeager - Last Filed: 02/04/19 16:26> Discharge Date and Diagnosis - Secondary Discharge Diagnosis Chronic Problems (Last Updated 02/03/19 @ 18:51 by Dejah Singh MD) Venous insufficiency of both lower extremities (Chronic) Chronic kidney disease (Chronic) Secondary pulmonary arterial hypertension (Chronic) Chronic diastolic (congestive) heart failure (Chronic) Essential (primary) hypertension (Chronic) Non-rheumatic mitral valve stenosis (Chronic) H/O coronary 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) CABG x 1 : SVG to distal LAD 09/29/2014 Atherosclerosis of coronary artery of [place] heart without angina pectoris (Chronic) CABG x 1 : SVG to distal LAD 09/29/2014 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 Angela Alexis History of mitral valve replacement with bioprosthetic valve (Chronic 09/29/14) 09/29/2014: MVR with 27 mm Medtronic tisue valve per Dr. Angela Alexis Hyperlipidemia (Chronic) Hospital Course and Treatment Summary of Care Provided: Patient seen by Sathish Fregoso PA-C under my supervision The patient is a 78 year old F with an extensive past medical history as listed. She was admitted through the ED on 02/03/2019 after she gave herself insulin Humalog instead of insulin Lantus. She accidentally injected 43 units of Humalog set of Lantus. She came to the ED where her blood sugar was monitored. Blood sugar fell to a annel of 60 and so she was admitted and monitored for hypoglycemia due to accidental injection of Humalog insulin. She was given half an amp of D50 and insulins were held after admission. Hypoglycemia resolved and blood sugars came up. Patient also complained of some mild shortness of breath and some wheezing which was thought to be due to a COPD. She was on her baseline level of oxygen at home. Patient remained stable and was discharged home on 02/04/2019. She had complained of bilateral lower extremity edema which was due to her underlying CKD stage IV. She had an appointment with Dr. Pulido on day of discharge. Patient was discharged home and is to follow-up with nephrology. She is also to follow-up with her primary care doctor and to be compliant with her insulin medication as prescribed. Patient seen and examined prior to discharge. She complained of occasional shortness of breath which was not present at time of review. Review of systems otherwise negative. Labs and vitals reviewed. Home medication reviewed and reconciled. o/e: Vital Signs Height 5 ft 3 in Weight: 173 lb 1.006 oz Weight in Pounds 173.1 lbs Pulse Ox 97 Temperature 98.5 F Pulse Rate 52 Respiratory Rate 14 Blood Pressure [BP] 148/69 Blood Pressure 132/56 Blood Pressure Position [BP] Semi-Fowlers Blood Pressure Position Semi-Fowlers []General: Alert, Oriented x3, Cooperative HEENT: Atraumatic, PERRLA, EOMI, Normocephalic Neck: Supple, No JVD, Negative Carotid Bruits Lungs: Clear mild wheezing in lung garcia bilaterally, no wheeze or crackles. on 2.5L of oxygen, which is around her baseline. Cardiovascular: Regular rate, No murmurs Abdomen: Bowel Sounds Present, Soft, Non Tender Extremities: Capillary Refill Less than 3 Seconds, Edema- 1+ bipedal pitting edema Skin: No rashes, No breakdown Musculoskeletal: No Tenderness to Palpation of Joints or Extremities Neurological: Cranial nerves II-XII grossly intact Psych/Mental Status: Normal Affect, Appropriate, Alert and oriented to time, place, person, mood and affect Plan as above. Rest of management as per Sathish Fregoso PA-C's note, which I have reviewed and endorsed. - Physical Exam Vital Signs Temp Pulse Resp BP Pulse Ox 98.5 F 52 L 14 132/56 H 97 02/04/19 10:55 02/04/19 11:33 02/04/19 11:33 02/04/19 10:55 02/04/19 11:27 Oxygen Flow Rate (L/min) 2.5 Oxygen Delivery Method Nasal Cannula Weight: 173 lb 1.006 oz Body Mass Index (BMI) 30.7 Finger Stick Blood Glucose 97 Intake and Output for Last 24 Hours 02/02/19 02/03/19 02/04/19 23:59 23:59 23:59 Intake Total 500 / 500 295 / 295 Balance 500 / 500 295 / 295 Laboratory Tests Past 24 Hrs 02/03/19 02/03/19 02/03/19 17:40 17:40 17:40 WBC 9.9 RBC 4.06 L Hgb 10.3 L Hct 33.2 L MCV 81.8 MCH 25.4 L MCHC 31.0 L RDW 16.5 H RDW Differential 49.7 H Plt Count 185 MPV 11.2 Immature Gran % (Auto) 0.100 Neut % (Auto) 51.5 Lymph % (Auto) 8.4 L [place] % (Auto) 2.8 Eos % (Auto) 36.6 H Baso % (Auto) 0.6 Absolute Neuts (auto) 5.1 Absolute Lymphs (auto) 0.83 Total Counted Not Reportable Differential Comment SCANNED Diff Path Review Reviewed PT 30.7 H INR 2.9 Sodium 140 Potassium 3.9 Chloride 101 Carbon Dioxide 32.0 Anion Gap 7 BUN 62 H Creatinine 2.41 H Estim Creat Clear Calc 16.17 Est GFR (MDRD) Af Amer 25 L Est GFR (MDRD) Non-Af 21 L BUN/Creatinine Ratio 25.7 H Glucose 169 H Calcium 9.1 Troponin I < 0.015 02/04/19 02/04/19 02/04/19 06:40 06:40 06:40 WBC 10.1 RBC 3.78 L Hgb 9.7 L Hct 31.1 L MCV 82.3 MCH 25.7 L MCHC 31.2 L RDW 16.8 H RDW Differential 51.3 H Plt Count 150 MPV 9.6 Immature Gran % (Auto) 0.200 Neut % (Auto) 50.1 Lymph % (Auto) 8.7 L [place] % (Auto) 5.3 Eos % (Auto) 35.2 H Baso % (Auto) 0.5 Absolute Neuts (auto) 5.1 Absolute Lymphs (auto) 0.88 Total Counted Not Reportable Differential Comment SCANNED Diff Path Review Reviewed PT INR Sodium 139 Potassium 4.4 Chloride 99 Carbon Dioxide 30.0 Anion Gap 10 BUN 61 H Creatinine 2.69 H Estim Creat Clear Calc 14.49 Est GFR (MDRD) Af Amer 22 L Est GFR (MDRD) Non-Af 18 L BUN/Creatinine Ratio 22.7 H Glucose 246 H Calcium 8.6 Troponin I < 0.015 02/04/19 02/04/19 09:38 13:00 WBC RBC Hgb Hct MCV MCH MCHC RDW RDW Differential Plt Count MPV Immature Gran % (Auto) Neut % (Auto) Lymph % (Auto) [place] % (Auto) Eos % (Auto) Baso % (Auto) Absolute Neuts (auto) Absolute Lymphs (auto) Total Counted Differential Comment Diff Path Review PT INR Sodium Potassium Chloride Carbon Dioxide Anion Gap BUN Creatinine Estim Creat Clear Calc Est GFR (MDRD) Af Amer Est GFR (MDRD) Non-Af BUN/Creatinine Ratio Glucose Calcium Troponin I 0.020 < 0.015 POC Glucose 02/04/19 02/04/19 02/04/19 12:23 06:27 04:02 POC Glucose 313 H 220 H 227 H 02/04/19 02/03/19 02/03/19 00:04 23:04 21:53 POC Glucose 192 H 186 H 162 H 02/03/19 02/03/19 02/03/19 20:52 19:54 18:27 POC Glucose 119 H 111 H 97 02/03/19 02/03/19 02/03/19 17:41 16:40 14:34 POC Glucose 60 L 100 219 H Code Visit Inpatient E&M: 87048 Disch Hosp OBSV E&M: 12279 Observation care discharge
== END 2019-02-04 11:28 | disposition home health service (06) ==
LOC: ED 14:56 → PCU 18:41
PROVIDERS: Emergency Medicine; Internal Medicine; Admitting Provider Hospitalist; Emergency Provider Emergency Medicine; Family Provider Internal Medicine; PCP Internal Medicine; Visit Provider Student in an Organized Health Care Education/Training Program
DX: T38.3X1A Poisoning by insulin and oral hypoglycemic [antidiabetic] drugs, accidental (unintentional), initial encounter (principal); E11.649 Type 2 diabetes mellitus with hypoglycemia without coma; Y92.9 Unspecified place or not applicable; I13.0 Hypertensive heart and chronic kidney disease with heart failure and stage 1 through stage 4 chronic kidney disease, or unspecified chronic kidney disease; N18.4 Chronic kidney disease, stage 4 (severe); I50.32 Chronic diastolic (congestive) heart failure; I25.10 Atherosclerotic heart disease of native coronary artery without angina pectoris; E03.9 Hypothyroidism, unspecified; J96.11 Chronic respiratory failure with hypoxia; E78.5 Hyperlipidemia, unspecified; I48.0 Paroxysmal atrial fibrillation; J44.9 Chronic obstructive pulmonary disease, unspecified; Z79.899 Other long term (current) drug therapy; Z95.1 Presence of aortocoronary bypass graft; Z79.82 Long term (current) use of aspirin; Z79.01 Long term (current) use of anticoagulants; Z95.3 Presence of xenogenic heart valve; I27.21 Secondary pulmonary arterial hypertension; E11.51 Type 2 diabetes mellitus with diabetic peripheral angiopathy without gangrene; E11.22 Type 2 diabetes mellitus with diabetic chronic kidney disease
CPT/HCPCS: 36415; 71045; 80048; 82962; 84484; 85025; 85610; 93005; 94640; 96361; 96374; 96375; 97802; 99218; 99285; A4216; G0378; J1940; J7799

== ENCOUNTER → 2019-02-09 | Outpatient (CLI) | payer MEDICARE, SELFPAY ==
[2019-02-09 10:27] VITALS: BMI 30.1
[2019-02-09 11:38] LABS: International Normalized Ratio 2.7; Prothrombin Time (Protime)PT. 28.6 SECONDS (11.7-14.9)
[2019-02-09 12:13] LABS: BNP,B-Type NATRIURETIC PEPTIDE 552.5 pg/mL (0-100)
== END | disposition home or self-care (01) ==
LOC: LABSPEC 11:19
PROVIDERS: Family Provider Internal Medicine; PCP Internal Medicine; Referring Provider Internal Medicine Cardiovascular Disease; Visit Provider Internal Medicine Cardiovascular Disease
DX: I13.0 Hypertensive heart and chronic kidney disease with heart failure and stage 1 through stage 4 chronic kidney disease, or unspecified chronic kidney disease (principal); I50.33 Acute on chronic diastolic (congestive) heart failure; E11.22 Type 2 diabetes mellitus with diabetic chronic kidney disease
CPT/HCPCS: 83880; 85610

== ENCOUNTER 2019-02-10 15:37 | Inpatient (IN) | payer MEDICARE, SELFPAY ==
[2019-02-09 10:27] VITALS: BMI 30.1
[2019-02-10] VITALS (13 sets, daily range): BP systolic 131–163; BP diastolic 55–103; PULSE 51–74; RESP 12–32; TEMP 36.3–36.8; O2SAT 94–100; BMI 28.8; BMI 28.9; BMI 30.7
--- NOTE | 2019-02-10 15:48 | EKG12_ITS ---
Test Reason : SOB Blood Pressure : / mmHG Vent. Rate : 060 BPM Atrial Rate : 060 BPM P-R Int : 166 ms QRS Dur : 094 ms QT Int : 486 ms P-R-T Axes : 003 104 073 degrees QTc Int : 486 ms Normal sinus rhythm Rightward axis Nonspecific ST abnormality Abnormal ECG Confirmed by RAVIN IZAGUIRRE, JAZMIN ([id number]), editor magazine SHIRLENE KOVACS ([id number]) on 02/15/2019 12:26:30 PM Referred By: Whit Yeager Confirmed By:JAZMIN ALICIA MD
--- NOTE | 2019-02-10 15:50 | RAD_ITS ---
STUDY: X-RAY CHEST REASON FOR EXAM: Female, 78 years old. Shortness of breath TECHNIQUE: Single frontal view of the chest. COMPARISON: February 03, 2019 FINDINGS: Sternotomy wires and prosthetic heart valve. Scarring right mid lung field. The lungs are clear and expanded. There is no demonstrated pleural abnormality. Normal size heart. Normal mediastinum and jacki. Normal visualized pulmonary arteries. Normal visualized aortic arch and descending thoracic aorta. Normal visualized thoracic spine. Normal visualized ribs, clavicles, and shoulders. There is no demonstrated abnormality of the visualized soft tissue structures of the upper abdomen. RAD/Chest 1 View (Portable) IMPRESSION: Prosthetic heart valve and sternotomy. No acute disease. Electronically Signed: Hoang Cummins MD at 16:18 EDT , Service support ,
[2019-02-10] MEDS: Ipratropium/Albuterol Sulfate 3 ML AMPUL.NEB INHALATION (15:57)
[2019-02-10] MEDS: Albuterol 2.5 MG/3 ML VIAL.NEB. INHALATION (15:57)
[2019-02-10] MEDS: Nitroglycerin Oint 1 INCH PACKET TRANSDERM. (15:57)
[2019-02-10 15:58] LABS: Absolute Lymphocyte Count 0.58 X10^3/uL (0.83-4.51); Absolute Neutrophil Count 8.5 X10^3/uL (2.0-7.7); Basophil# 0.04 X10^3/uL; Basophil% 0.3 % (0-1); Eosinophils% 17.7 % (0-5); Hematocrit 35.3 % (37-47); Hemoglobin 11.1 g/dL (12.0-15.0); Lymphocyte # 0.58 X10^3/ul (4.0); Lymphocyte % 4.9 % (19-41); Mean Corp Hgb Conc 31.4 g/dL (32-36); Mean Corpuscular Hgb 26.5 pg (27.0-32.0); Mean Corpuscular Volume 84.2 fL (81-99); Mean Platelet Vol. 10.9 fl (6.2-12.0); Monocyte# 0.54 X10^3/uL; Monocyte% 4.6 % (0-10); NRBC Flagged by Analyzer 0 % (0-5); Neutrophil % 72.1 % (47-70); POSITIVE DIFFERENTIAL YES; Platelet Count 161 K/mm3 (150-450); RBC Distribution Width SD 52.3 fl (35.1-43.9); Red Blood Count 4.19 M/mm3 (4.2-5.4); White Blood Count 11.8 K/mm3 (4.4-11.0)
[2019-02-10 16:17] LABS: Anion Gap 4 (5-15); BUN 41 mg/dL (7-18); BUN/Creat Ratio 19.3 RATIO (10-20); Calcium,Total 9.2 mg/dL (8.5-10.1); Chloride 100 mmol/L (98-107); Creatinine, Serum 2.12 mg/dL (0.55-1.02); EST Glomerular Filtration Rate 24 mL/min (>60); Est Glom Filt Rate - Afr Amer 29 mL/min (>60); Glucose 177 mg/dL (74-106); Sodium Level 136 mmol/L (136-145)
[2019-02-10 16:18] LABS: Lactic Acid 1.7 mmol/L (0.4-2.0)
[2019-02-10 16:20] LABS: Differential Indicated SCAN CRITERIA MET; Eosinophil# 2.09 X10^3/uL
[2019-02-10 16:26] LABS: BNP,B-Type NATRIURETIC PEPTIDE 495.5 pg/mL (0-100)
[2019-02-10 16:36] LABS: Differential Comment SCANNED; Prothrombin Time (Protime)PT. 31.4 SECONDS (11.7-14.9)
[2019-02-10] MEDS: LORazepam 2 MG/ML Syringe 1 MG IV (16:38)
--- NOTE | 2019-02-10 16:45 | ED.RN ---
NOT SEPSIS RISK PER MD
--- NOTE | 2019-02-10 16:53 | ED.DCSUM_ITS ---
- ER Visit Summary Date of Service: 02/10/19 Chief Complaint: [Shortness of breath] History of Present Illness: The patient is a 78 F [presents to the emergency department with complaint of shortness of breath started worsening throughout the day today. Patient states she gradually started feeling worse and worse. She has had a minimal cough but no fever. Patient at times bring up some clear phlegm. Patient had recent admission where she required diuresis in 126 pounds were taken off. Patient denies any recent travel. Patient denies any chest pain. Patient does state that she is had a few pound weight gain recently. Patient has history of coronary artery disease, CHF, COPD, A. fib, hypertension, high cholesterol, and chronic kidney disease.] Physical Examination: [HEENT-PERRLA, EOMI. Cranial nerves II through XII grossly intact. TMs clear. Mucous membranes moist. No adenopathy. Cardiovascular-regular rate and rhythm without murmur or ectopy Lungs-minutes breath sounds bilaterally. Patient is a faint expiratory wheezes. No accessory muscle use or retractions. Patient presented via EMS on BiPAP. Abdomen-normoactive bowel sounds, soft, nontender, no rebound or rigidity, no peritoneal signs. Extremities-intact ?4, normal range of motion, normal pulses, atraumatic. Patient does have +3 edema both lower extremities and symmetric.] Test Results: [EKG obtained showed sinus rhythm with a ventricular rate of [address] changes. CBC with differential and with an 11.8, hemoglobin 11, hematocrit 35, plates 161. Chemistries unremarkable. BUN was 41 creatinine 2.12. Troponin was less than 0.15. BNP was 495. Chest x-ray showed nothing acute. INR was 3.0.] Emergency Department Course and Treatment: [Patient was continued on BiPAP and was given DuoNeb aerosol as well as albuterol aerosols. Patient was given Lasix 80 mg IV. Patient given Solu-Medrol 60 mg IV.] Patient received Ativan 1 mg IV. Treatment Plan: [Admit] Disposition: [Admit] Impression: [Dyspnea COPD exacerbation CHF exacerbation] This note was generated with [employer] dictation software. It may contain incorrect words, spelling, and punctuation that were not noted in review of the chart prior to signing ED Disposition - Plan for ED Patient: Referrals: Jovana Moulton MD [Primary Care Provider] -
--- NOTE | 2019-02-10 16:55 | NURSING ---
PCU OBS COPD EXAC, DYSPNEA
[2019-02-10] MEDS: MethylPREDNISolone 125 MG/2 ML Vial 60 MG IV (17:01)
[2019-02-10] MEDS: Furosemide 100 MG/10 ML Vial 80 MG IV (17:01)
--- NOTE | 2019-02-10 20:01 | PCM.HP.STD ---
History of Present Illness Date of Admission: 02/10/19 Chief Complaint: shortness of breath The patient is a 78 year old F with an extensive past medical history as listed. She was admitted with a complaint of shortness of breath which have been going on for a few days. Patient was recently fitted and discharged on account of hypoglycemia. She says is went home her shortness of breath has been worsening with associated orthopnea and PND. Her lower extremities were also swollen. Her Lasix was recently adjusted by her department of natural resources officer and she was not taking Lasix 80 mg twice daily. Her bumetanide was stopped. However the swelling has persisted and his shortness of breath has also worsens we decided coming to the ED today. She denied any chest pain or palpitation, dizziness, lightheadedness, diarrhea or vomiting. Review of systems otherwise negative. She expressed frustration that she kept on being admitted on account of shortness of breath and had not been able to follow-up with a career development manager for his COPD. On admission, vitals were stable and she was saturating at 94% on 3 L of oxygen which is at baseline. Labs were significant for creatinine of 2.12 and CBC showed hemoglobin of 11.1 and white cell count of 11.8 initial troponin was negative and BNP was 495.5. Chest x-ray showed a prosthetic heart valve and sternotomy but no acute disease. She has been admitted to be managed for acute on chronic diastolic heart failure and COPD exacerbation. [] Past Medical History Past Medical History (Chronic Problems): Chronic Problems (Last Updated 02/03/19 @ 18:51 by Dejah Singh MD) Venous insufficiency of both lower extremities (Chronic) Chronic kidney disease (Chronic) Secondary pulmonary arterial hypertension (Chronic) Chronic diastolic (congestive) heart failure (Chronic) Essential (primary) hypertension (Chronic) Non-rheumatic mitral valve stenosis (Chronic) H/O coronary 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) CABG x 1 : SVG to distal LAD 09/29/2014 Atherosclerosis of coronary artery of [place] heart without angina pectoris (Chronic) CABG x 1 : SVG to distal LAD 09/29/2014 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 Angela Alexis History of mitral valve replacement with bioprosthetic valve (Chronic 09/29/14) 09/29/2014: MVR with 27 mm Medtronic tisue valve per Dr. Angela Alexis Hyperlipidemia (Chronic) Medical History: Medical History (Last Updated 02/03/19 @ 18:51 by Dejah Singh MD) Secondary pulmonary arterial hypertension (Chronic) I27.21 Chronic diastolic (congestive) heart failure (Chronic) I50.32 Essential (primary) hypertension (Chronic) I10 Non-rheumatic mitral valve stenosis (Chronic) I34.2 Atherosclerosis of coronary artery of [place] without angina pectoris (Chronic) I25.10 CABG x 1 : SVG to distal LAD 09/29/2014 Chronic hypoxemic respiratory failure (Chronic) J96.11 Paroxysmal atrial fibrillation (Chronic) I48.0 Hyperlipidemia (Chronic) E78.5 Dyspnea on exertion R06.09 Edema R60.9 Pulmonary hypertension, moderate to severe I27.20 Shortness of breath R06.02 Anemia D64.9 Chronic renal failure N18.9 Depression F32.9 Peripheral vascular disease I73.9 Type 2 diabetes mellitus E11.9 Subdural bleeding (Inactive) I62.00 Allergies dronedarone [From Multaq] Allergy (Severe, Verified 02/10/19 15:50) difficulty breathing dronedarone HCl [From Multaq] Allergy (Verified 02/10/19 15:50) Other unable to breath levofloxacin [From Levaquin] Adverse Reaction (Severe, Verified 02/10/19 15:50) hallucinations, hot flashes quinapril [From Accupril] Adverse Reaction (Severe, Verified 02/10/19 15:50) near syncope cortisone Adverse Reaction (Intermediate, Verified 02/10/19 15:50) swelling hydralazine Adverse Reaction (Intermediate, Verified 02/10/19 15:50) weakness Beta-Blockers (Beta-Adrenergic Bloc Adverse Reaction (Verified 02/10/19 15:50) Other WHEEZING, shaking, passes out CARDURA Allergy (Uncoded 02/10/19 15:50) Other PT NOT SURE- POSSIBLE SWELLING NORVASC Allergy (Uncoded 02/10/19 15:50) Swelling SCALLOPS Allergy (Uncoded 02/10/19 15:50) Swelling SULFA Allergy (Uncoded 02/10/19 15:50) Other SPOTS IN MOUTH/SORE MOUTH ATIVAN Adverse Reaction (Uncoded 02/10/19 15:50) Other HALLUCINATIONS METATOPOLOL TARTATE Adverse Reaction (Uncoded 02/10/19 15:50) Other Home Medications: Ambulatory Orders Medication Instructions Recorded Albuterol Inhaler [Ventolin Hfa] 2 puff INHALATION Q4H PRN PRN #1 10/27/14 inhaler Aspirin E.C. [Ecotrin] 81 mg PO QHS 01/07/18 Albuterol Aerosols [Ventolin 3 ml INHALATION BID 06/22/18 Aerosols] Multivit-Min/Iron/Folic/Lutein 1 tab PO DAILY 06/22/18 [Centrum Silver Women Tablet] levothyroxine 88 mcg tablet 88 mcg PO DAILY 30 Days #90 tab 07/27/18 insulin lispro (U-100) 100 unit/mL See Protocol SC .with meals ml 09/29/18 subcutaneous pen Lecithin, Soy [Lecithin] 1,200 mg PO DAILY 11/23/18 Warfarin Sodium 3 mg PO SUWETHFRSA 11/23/18 Warfarin Sodium [Coumadin] 4 mg PO MOTU 11/23/18 Calcitriol [Rocaltrol] 0.25 mcg PO MOWEFR cap 11/25/18 amiodarone 200 mg tablet 100 mg PO DAILY #45 tab 12/28/18 Insulin Glargine [Lantus SoloStar 35 units SUBCUT DAILY 01/10/19 Pen] Fluticasone/Umeclidin/Vilanter 1 puff INHALATION DAILY 02/03/19 [Trelegy Ellipta 100-62.5-25] Guaifenesin [Mucinex] 1,200 mg PO DAILY 02/03/19 Insulin Lispro [Humalog KwikPen] 8 unit SUBCUT TIDAC 02/03/19 furosemide 40 mg tablet 80 mg PO BID #60 tab 02/09/19 Bumetanide 1 mg PO BID 02/10/19 Surgical History: Surgical History (Last Reviewed 01/25/19 @ 11:26 by Ely Serrato) H/O coronary artery bypass surgery (Chronic) Onset Date: 09/29/14 Z95.1 CABG x 1 : SVG to distal LAD 09/29/2014 History of maze procedure (Chronic) Onset Date: 09/29/14 Z98.890 09/29/2014 atricure pulmonary vein isolation MAZE with ligation of left atrial appendage per Dr. Angela Alexis History of mitral valve replacement with bioprosthetic valve (Chronic) Onset Date: 09/29/14 Z95.3 09/29/2014: MVR with 27 mm Medtronic tisue valve per Dr. 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 [employer] history Smoking Status: Never smoker - *Family History Maternal Family History: Family History (Last Reviewed 01/25/19 @ 11:26 by Ely Serrato) Father CAD (coronary artery disease) Hypertension Myocardial infarction Sudden cardiac Hyperlipidemia Mother Breast cancer Brother Cancer Sister Breast cancer Hyperlipidemia Sister Hyperlipidemia History Items: Cancer Paternal Family History: Family History (Last Reviewed 01/25/19 @ 11:26 by Ely Serrato) Father CAD (coronary artery disease) Hypertension Myocardial infarction Sudden cardiac Hyperlipidemia Mother Breast cancer Brother Cancer Sister Breast cancer Hyperlipidemia Sister Hyperlipidemia History Items: Heart Disease, Stroke Sibling Family History: Family History (Last Reviewed 01/25/19 @ 11:26 by Ely Serrato) Father CAD (coronary artery disease) Hypertension Myocardial infarction Sudden cardiac Hyperlipidemia Mother Breast cancer Brother Cancer Sister Breast cancer Hyperlipidemia Sister Hyperlipidemia History Items: Cancer - in brother and sister Review of Systems Constitutional: Reports: Malaise, Weakness, Fatigue. Denies: Chills, Fever, Weight Change Eyes: Denies: Blurred vision HEENT: Denies: Head Aches, Sinus Congestion, Sinus Drainage Cardiovascular: Reports: Edema - bilateral LE edema. Denies: Chest Pain, Chest Pressure, Palpitations Respiratory: Reports: Cough, Shortness of Breath, Shortness of breath at rest, Shortness of breath upon exertion, Sputum production, Wheezing. Denies: Pleuritic Pain Gastrointestinal: Denies: Abdominal Pain, Nausea, Vomiting Genitourinary: Denies: Dysuria Musculoskeletal: Denies: Joint Pain, Joint Tenderness Skin: Denies: Rash, Wounds Neurological: Denies: Numbness, Tingling, Focal weakness Psychiatric: Denies: Anxiety, Depression, Homicidal Ideations, Suicidal Ideations Hematologic/ Lymphatic: Denies: Easy Bruising, Easy Bleeding VTE Information - Inpt Only VTE Present on Admission: No VTE Pharm Prophylaxis ordered?: Yes - Physical Exam General: Alert, Oriented x3, Cooperative, Lethargic HEENT: Atraumatic, PERRLA, EOMI, Normocephalic Oral: Moist Mucosa Neck: Supple, No JVD, Negative Carotid Bruits Lungs: - - coarse crackles in mid and lower lung garcia bilaterally. NO wheezing or crackles. on 3L of oxygen. Cardiovascular: Regular rate, Regular Rhythm, Normal S1, Normal S2, No murmurs Abdomen: Bowel Sounds Present, Soft, Non Tender, Non-Distended, No Hepato-splenomegaly Extremities: No clubbing, No cyanosis, - - mild 1+ bilateral LE pitting pedal edema Skin: No rashes, No breakdown Musculoskeletal: No Tenderness to Palpation of Joints or Extremities Lymphatic: No Cervical, Supraclavicular, or Inguinal Adenopathy Neurological: Cranial nerves II-XII grossly intact Psych/Mental Status: Normal Affect, Appropriate, Alert and oriented to time, place, person, mood and affect Vital Signs Temp Pulse Resp BP Pulse Ox 98.2 F 69 20 H 163/72 H 94 02/10/19 18:00 02/10/19 18:10 02/10/19 18:00 02/10/19 18:00 02/10/19 18:00 Oxygen Flow Rate (L/min) 3 Oxygen Delivery Method Nasal Cannula Weight: 173 lb 4.533 oz Body Mass Index (BMI) 30.7 Finger Stick Blood Glucose 97 Intake and Output for Last 24 Hours 02/08/19 02/09/19 02/10/19 23:59 23:59 23:59 Intake Total 100 / 100 Balance 100 / 100 Laboratory Tests Past 24 Hrs 02/10/19 02/10/19 02/10/19 15:45 15:45 15:45 WBC 11.8 H RBC 4.19 L Hgb 11.1 L Hct 35.3 L MCV 84.2 MCH 26.5 L MCHC 31.4 L RDW Std Deviation 52.3 H RDW Coeff of Alejo 17.0 H Plt Count 161 MPV 10.9 Immature Gran % (Auto) 0.400 Neut % (Auto) 72.1 H Lymph % (Auto) 4.9 L [place] % (Auto) 4.6 Eos % (Auto) 17.7 H Baso % (Auto) 0.3 Absolute Neuts (auto) 8.5 H Absolute Lymphs (auto) 0.58 L Absolute Nucleated RBC 0.00 Nucleated RBC % 0 Differential Comment SCANNED Diff Path Review May foll PT INR Sodium 136 Potassium 4.0 Chloride 100 Carbon Dioxide 32.0 Anion Gap 4 L BUN 41 H Creatinine 2.12 H Estim Creat Clear Calc 20.80 Est GFR (MDRD) Af Amer 29 L Est GFR (MDRD) Non-Af 24 L BUN/Creatinine Ratio 19.3 Glucose 177 H Lactic Acid 1.7 Calcium 9.2 Troponin I < 0.015 B-Natriuretic Peptide 02/10/19 02/10/19 15:45 15:45 WBC RBC Hgb Hct MCV MCH MCHC RDW Std Deviation RDW Coeff of [place] Plt Count MPV Immature Gran % (Auto) Neut % (Auto) Lymph % (Auto) [place] % (Auto) Eos % (Auto) Baso % (Auto) Absolute Neuts (auto) Absolute Lymphs (auto) Absolute Nucleated RBC Nucleated RBC % Differential Comment Diff Path Review PT 31.4 H INR 3.0 Sodium Potassium Chloride Carbon Dioxide Anion Gap BUN Creatinine Estim Creat Clear Calc Est GFR (MDRD) Af Amer Est GFR (MDRD) Non-Af BUN/Creatinine Ratio Glucose Lactic Acid Calcium Troponin I B-Natriuretic Peptide 495.5 H Diagnostic Data Chest X-Ray 02/10/19 15:50 IMPRESSION: Prosthetic heart valve and sternotomy. No acute disease. Electronically Signed: Hoang Cummins MD at 16:18 EDT , Service support , Assessment/Plan All Active Problems (Last Updated 02/03/19 @ 18:51 by Dejah Singh MD) Hypoglycemia due to insulin (Acute) 78-year-old female admitted with complaint of shortness of breath. 1. Acute on chronic diastolic CHF exacerbation: on IV lasix 80mg bid fluid restriction to 1500cc daily intake output daily EF is 65% 2.History of bioprosthetic mitral valve replacement: on coumadin 3. CKD stage IV: CR is 2.12. Baseline is actually around 2.5. Follows with Dr Gan. Monitor creatinine. 3. Chronic hypoxic respiratory failure: on her baseline 3L of oxygen 4. Severe pulmonary hypertension: on 3L of oxygen and breathing treatments 5. Type 2 DM: on insulin lantus. ISS. Accuchecks ACHS 7. Paroxysmal A. fib: On amiodarone. On Coumadin. INR is 3. 8. Hypothyroidism: On Synthroid DVT Prophylaxis: On Coumadin Code Visit Inpatient E&M: 41502 Init Hosp L3
[2019-02-10 22:25] LABS: Bedside Glucose 302 mg/dL (70-110)
[2019-02-10] MEDS: Aspirin E.C. 81 MG Tablet PO (22:34)
[2019-02-10] MEDS: Glucerna Shake 120 ML LIQUID PO (22:34)
[2019-02-10] MEDS: Insulin Lispro 100 UNIT/ML INSULN.PEN SC (22:35)
[2019-02-11] VITALS (22 sets, daily range): BP systolic 133–191; BP diastolic 55–77; PULSE 53–80; RESP 12–32; TEMP 36.2–36.6; O2SAT 91–99
[2019-02-11] MEDS: Albuterol 2.5 MG/3 ML VIAL.NEB. INHALATION ×2 (00:22→08:13)
[2019-02-11] MEDS: Ipratropium/Albuterol Sulfate 3 ML AMPUL.NEB INHALATION ×3 (05:19→19:12)
[2019-02-11 06:23] LABS: Anion Gap 9 (5-15); BUN 48 mg/dL (7-18); BUN/Creat Ratio 21.7 RATIO (10-20); Calcium,Total 8.6 mg/dL (8.5-10.1); Chloride 99 mmol/L (98-107); Creatinine, Serum 2.21 mg/dL (0.55-1.02); EST Glomerular Filtration Rate 23 mL/min (>60); Est Glom Filt Rate - Afr Amer 28 mL/min (>60); Estimated Creatinine Clearance 17.63 ml/min; Glucose 300 mg/dL (74-106); Potassium 4.9 mmol/L (3.5-5.1); Sodium Level 137 mmol/L (136-145)
[2019-02-11] MEDS: 0.9% NaCl Peripheral Flush Adult/Peds IV (06:31)
[2019-02-11 06:43] LABS: Absolute Lymphocyte Count 0.35 X10^3/uL (0.83-4.51); Absolute Neutrophil Count 5.7 X10^3/uL (2.0-7.7); Basophil# 0.01 X10^3/uL; Basophil% 0.2 % (0-1); Eosinophil# 0.05 X10^3/uL; Eosinophils% 0.8 % (0-5); Hematocrit 32.5 % (37-47); Lymphocyte # 0.35 X10^3/ul (4.0); Lymphocyte % 5.7 % (19-41); Mean Corp Hgb Conc 30.8 g/dL (32-36); Mean Corpuscular Hgb 25.9 pg (27.0-32.0); Mean Corpuscular Volume 84.2 fL (81-99); Mean Platelet Vol. 11.3 fl (6.2-12.0); Monocyte# 0.07 X10^3/uL; Monocyte% 1.1 % (0-10); NRBC Flagged by Analyzer 0 % (0-5); Neutrophil # 5.69 X10^3/uL (2.7-7.7); Neutrophil % 91.9 % (47-70); POSITIVE DIFFERENTIAL YES; POSITIVE MORPHOLOGY YES; Platelet Count 152 K/mm3 (150-450); RBC Distribution Width CV 16.8 % (11.6-14.6); RBC Distribution Width SD 51.8 fl (35.1-43.9); Red Blood Count 3.86 M/mm3 (4.2-5.4); White Blood Count 6.2 K/mm3 (4.4-11.0)
[2019-02-11 07:01] LABS: Differential Indicated SCAN CRITERIA MET
[2019-02-11 08:11] LABS: Bedside Glucose 351 mg/dL (70-110)
[2019-02-11 08:25] LABS: Anisocytosis 1+; Differential Comment SCANNED; Platelet Estimate ADEQUATE (ADEQ)
[2019-02-11] MEDS: Insulin Lispro 100 UNIT/ML INSULN.PEN 8 UNIT SC ×2 (09:14→13:01)
[2019-02-11] MEDS: Insulin Lispro 100 UNIT/ML INSULN.PEN SC ×4 (09:14→22:09)
[2019-02-11] MEDS: Furosemide 100 MG/10 ML Vial 80 MG IV ×2 (09:17→17:02)
[2019-02-11] MEDS: guaiFENesin 1,200 MG Tablet 1200 MG PO (09:17)
[2019-02-11] MEDS: Glucerna Shake 120 ML LIQUID PO ×2 (09:17→22:09)
[2019-02-11] MEDS: Amiodarone 200 MG Tablet 100 MG PO (09:25)
--- NOTE | 2019-02-11 10:40 | NURSING ---
Lisha Meneses JOINT FINISHER, came to this RN stating that pt was extremely SOB from discussing palliative care. Resp notified/BIpap placed and IV haldol given. Pt starting to recover after BIPAP placed. family at bedside
[2019-02-11] MEDS: Haloperidol Lactate 5 MG/ML Vial 3 MG IV (10:47)
--- NOTE | 2019-02-11 11:00 | CPS ---
called to room to place Bipap on pt. pt placed on Bipap for increased work of breathing. pt vamsi well and breathing less labored post Bipap placement
[2019-02-11 11:34] LABS: Prothrombin Time (Protime)PT. 35.8 SECONDS (11.7-14.9)
[2019-02-11 11:37] LABS: International Normalized Ratio 3.6
--- NOTE | 2019-02-11 11:50 | CASEMGMT ---
Readmission chart review: Pt initially admitted 01/10-01/18/19 for Acute hypoxic respiratory failure. See assessment completed by Darryl PORTILLO CM on 01/11/19. Pt has home oxygen 2 liters continous already set up thru [facility] and has the mobile lab to come out and draw PT/INR. Pt was set to go home with [facility] during this visit but then decided on the day of discharge that she wanted to go to TCU but two days later while awaiting precert, pt decided again to go home with [facility] for RN, Speech. Therapy recommended PT/OT at discharge but pt refused. [facility] did add PT/OT after start of care and per Danna at [facility], OT and ST only did one visit. Pt then came back as an OBS on 02/03-02/04/19 for hypoglycemia after pt accidentily took wrong dose of insulin. HHC resumed at that time. Pt readmitted 02/10/19 for Acute on Chronic CHF, COPD. Shannan GOODRICH plans to discuss palliative with pt and offer CCN again at this time. Danna at [facility] aware that resumption of care order is in and that this LINDSEY MONTEJO did add SW to the order at this time, voices understanding. CM to follow for any further discharge planning/needs. [place] PORTILLO CM
[2019-02-11 11:56] LABS: Bedside Glucose 325 mg/dL (70-110)
--- NOTE | 2019-02-11 14:29 | NURSING ---
Pt asleep i chair. O2 NC in place Respirations even and unlabored, pt did not wake up during assessment. Patient's is at bedside and does not want pt woken up for vital signs. Asked to press call light as soon as she wakes up so I can get a full set of vital signs
--- NOTE | 2019-02-11 14:48 | PN_ITS ---
Subjective: Patient seen and examined. Reports intermittent shortness of breath which she attributes to increased anxiety. Denies significant increased lower extremity swelling or weight gain at home. - Physical Exam General: Alert, Oriented x3, Cooperative, - HEENT: Atraumatic, PERRLA, EOMI, Normocephalic Oral: Dry Mucosa Neck: Supple, No JVD, Negative Carotid Bruits Lungs: Diminished, Wheezes Cardiovascular: Regular rate, Regular Rhythm, Normal S1, Normal S2, No murmurs Abdomen: Bowel Sounds Present, Soft, Non Tender, Non-Distended Extremities: No clubbing, No cyanosis, Capillary Refill Less than 3 Seconds, Edema - Nonpitting bilateral lower extremities Skin: No rashes, No breakdown, - - Chronic skin changes/hyperpigmentation bilateral lower extremities. Musculoskeletal: No Tenderness to Palpation of Joints or Extremities Neurological: Cranial nerves II-XII grossly intact, Neuro grossly intact Psych/Mental Status: Anxious Vital Signs Temp Pulse Resp BP Pulse Ox 97.8 F 53 L 20 H 186/67 H 94 02/11/19 12:30 02/11/19 14:37 02/11/19 14:37 02/11/19 12:30 02/11/19 12:30 Oxygen Flow Rate (L/min) 4 Oxygen Delivery Method Nasal Cannula Weight: 175 lb 0.752 oz Body Mass Index (BMI) 30.7 Finger Stick Blood Glucose 97 Intake and Output for Last 24 Hours 02/09/19 02/10/19 02/11/19 23:59 23:59 23:59 Intake Total 220 / 220 660 / 660 Output Total 100 / 100 300 / 300 Balance 120 / 120 360 / 360 Laboratory Tests Past 24 Hrs 02/10/19 02/10/19 02/10/19 15:45 15:45 15:45 WBC 11.8 H RBC 4.19 L Hgb 11.1 L Hct 35.3 L MCV 84.2 MCH 26.5 L MCHC 31.4 L RDW Std Deviation 52.3 H RDW Coeff of Alejo 17.0 H Plt Count 161 MPV 10.9 Immature Gran % (Auto) 0.400 Neut % (Auto) 72.1 H Lymph % (Auto) 4.9 L [place] % (Auto) 4.6 Eos % (Auto) 17.7 H Baso % (Auto) 0.3 Absolute Neuts (auto) 8.5 H Absolute Lymphs (auto) 0.58 L Absolute Nucleated RBC 0.00 Nucleated RBC % 0 Differential Comment SCANNED Diff Path Review May foll Platelet Estimate Anisocytosis PT INR Sodium 136 Potassium 4.0 Chloride 100 Carbon Dioxide 32.0 Anion Gap 4 L BUN 41 H Creatinine 2.12 H Estim Creat Clear Calc 20.80 Est GFR (MDRD) Af Amer 29 L Est GFR (MDRD) Non-Af 24 L BUN/Creatinine Ratio 19.3 Glucose 177 H Lactic Acid 1.7 Calcium 9.2 Troponin I < 0.015 B-Natriuretic Peptide 02/10/19 02/10/19 02/11/19 15:45 15:45 05:30 WBC 6.2 RBC 3.86 L Hgb 10.0 L Hct 32.5 L MCV 84.2 MCH 25.9 L MCHC 30.8 L RDW Std Deviation 51.8 H RDW Coeff of Alejo 16.8 H Plt Count 152 MPV 11.3 Immature Gran % (Auto) 0.300 Neut % (Auto) 91.9 H Lymph % (Auto) 5.7 L [place] % (Auto) 1.1 Eos % (Auto) 0.8 Baso % (Auto) 0.2 Absolute Neuts (auto) 5.7 Absolute Lymphs (auto) 0.35 L Absolute Nucleated RBC 0.00 Nucleated RBC % 0 Differential Comment SCANNED Diff Path Review Platelet Estimate ADEQUATE Anisocytosis 1+ PT 31.4 H INR 3.0 Sodium Potassium Chloride Carbon Dioxide Anion Gap BUN Creatinine Estim Creat Clear Calc Est GFR (MDRD) Af Amer Est GFR (MDRD) Non-Af BUN/Creatinine Ratio Glucose Lactic Acid Calcium Troponin I B-Natriuretic Peptide 495.5 H 02/11/19 02/11/19 05:30 11:18 WBC RBC Hgb Hct MCV MCH MCHC RDW Std Deviation RDW Coeff of Alejo Plt Count MPV Immature Gran % (Auto) Neut % (Auto) Lymph % (Auto) [place] % (Auto) Eos % (Auto) Baso % (Auto) Absolute Neuts (auto) Absolute Lymphs (auto) Absolute Nucleated RBC Nucleated RBC % Differential Comment Diff Path Review Platelet Estimate Anisocytosis PT 35.8 H INR 3.6 H* Sodium 137 Potassium 4.9 Chloride 99 Carbon Dioxide 29.0 Anion Gap 9 BUN 48 H Creatinine 2.21 H Estim Creat Clear Calc 17.63 Est GFR (MDRD) Af Amer 28 L Est GFR (MDRD) Non-Af 23 L BUN/Creatinine Ratio 21.7 H Glucose 300 H Lactic Acid Calcium 8.6 Troponin I B-Natriuretic Peptide POC Glucose 02/11/19 02/11/19 02/10/19 11:48 08:04 22:22 POC Glucose 325 H 351 H 302 H Medical Necessity - Tobacco Use Smoking Status: Never smoker Assessment/Plan All Active Problems (Last Updated 02/03/19 @ 18:51 by Dejah Singh MD) Hypoglycemia due to insulin (Acute) 1. Chronic hypoxic respiratory failure secondary to acute on chronic diastolic CHF-patient chronically wears 2 L nasal cannula at bedtime and as needed. Continue supplement oxygen to maintain O2 at or above 90%. Oxygen stable on baseline O2 requirements. Continue BiPAP nightly and as needed. 2. Acute on chronic diastolic CHF-BNP 495. Chest x-ray without acute process. Echocardiogram 01/12/19 with EF 65%, mild to moderate tricuspid valve insufficiency, mild to moderate pulmonic valve insufficiency, RVSP estimated to be 72 mmHg. Strict I&O. Daily weight. Patient was discharged in December on Bumex 2 mg twice daily per nephrology recommendations. However she reports at follow- up with nephrology, her Bumex regimen was reduced to 1 mg twice daily. She reports she has not been doing well on this regimen and feels she was doing better on Lasix. Continue IV Lasix 80 mg twice daily. Will discuss with nephrology recommendations on discharge diuretic regimen. 3. Chronic COPD-no acute exacerbation. As needed albuterol aerosol. Pulmonary medicine consulted given recurrent admissions and intermittent breathing attacks. Plan to initiate prednisone taper. Palliative care consult. 4. CAD status post CABG-continue aspirin, Not on statin. 5. Type 2 diabetes mellitus-continue home insulin regimen. 6. Paroxysmal atrial fibrillation-continue amiodarone, Coumadin. Hold tonig ht's Coumadin, trend INR. INR supratherapeutic. 7. Hypertension-previously on losartan which was discontinued due to kidney function. Blood pressure elevated. As needed hydralazine for systolic blood pressure greater than 160. May need additional oral regimen at discharge. 8. Chronic kidney disease stage IV-follows with Dr. Flores. Baseline creatinine 1.9-2.5. Creatinine at baseline. No HERNAN. 9. Status post mitral valve replacement with bioprosthetic valve-stable per echo as noted above. 10. Hypothyroidism-continue Synthroid regimen. 11. Chronic foot diabetic wounds/ulcerations-left heel, left superior foot, and right great toe ulcerations, present on admission. Continue dry dressing daily to left dorsal foot and right plantar surface of the great toe. Mendez wraps bilateral lower extremities. Elevate as much as possible. 12. MAGALI-noncompliant with CPAP regimen. Encouraged CPAP use. DVT prophylaxis- Coumadin. Discharge planning: Anticipate need for SNF, follow PT recommendations. java development manager consult. This patient was seen by JOSE ANGEL Null under the supervision of Dr. Benson.
--- NOTE | 2019-02-11 14:59 | PCM.CONS.PUL ---
Problem List (1) Asthma Status: Chronic Qualifiers: Asthma severity: severe Asthma persistence: persistent Asthma complication type: with acute exacerbation Qualified Code(s): J45.51 - Severe persistent asthma with (acute) exacerbation (2) Chronic kidney disease Status: Chronic Qualifiers: Chronic kidney disease stage: unspecified stage Qualified Code(s): N18.9 - Chronic kidney disease, unspecified (3) Secondary pulmonary arterial hypertension Status: Chronic (4) Chronic diastolic (congestive) heart failure Status: Chronic (5) Essential (primary) hypertension Status: Chronic (6) Non-rheumatic mitral valve stenosis Status: Chronic (7) H/O coronary artery bypass surgery Status: Chronic Comment: CABG x 1 : SVG to distal LAD 09/29/2014 (8) Chronic hypoxemic respiratory failure Status: Chronic (9) Paroxysmal atrial fibrillation Status: Chronic (10) History of maze procedure Status: Chronic Comment: 09/29/2014 atricure pulmonary vein isolation MAZE with ligation of left atrial appendage per Dr. Miller [facility] Reason for Consult Date of Consultation: 02/11/19 Reason for Consultation: Respiratory failure History of Present Illness: The patient is a 78 year old F with past medical history listed below, who presented with [facility] on 02/10/2019 secondary to progressive shortness of breath throughout the day. Patient stated that she is had multiple episodes of tachypnea and anxiety. Throughout the day she started to feel worse, so presented to the ER for evaluation. Patient has been hospitalized multiple times over the last 6 months. Patient states throughout she has only brought up clear sputum. Patient denied any recent travel. Patient reported she had been compliant with her supplemental oxygen. Patient did report an 11 pound weight gain since discharge the previous to the ER. Patient had attempted using an aerosolized dilator prior to coming in and this was not effective. In the ER, patient was noted to have a ventricular rate of 60 bpm, hemoglobin of 11, creatinine of 2.12 and a negative troponin. BNP was slightly elevated at 495 and INR was 3. Patient was given IV Lasix, Solu-Medrol and Ativan and admitted to the floor for further evaluation. Patient is a long-term patient of [facility] as an outpatient. Patient has had pulmonary function tests in the past that have shown significant bronchial reactivity and FEV1 consistent with a diagnosis of asthma. However patient has also had a significant cardiac history, including attempt at surgical correction of atrial fibrillation. Patient denies any current palpitations, nausea or vomiting. Patient believes that she has been progressing to the point that she can do nothing at home. Patient does report that she feels that she did better when she was on Xanax in the past as she feels anxiety leads to increased shortness of breath and then an inability to get air out. Patient denies any sick contacts, dysuria, trauma, epistaxis or hemoptysis. Patient does believe that she is becoming more anxious and she attributes this to her multiple hospitalizations. Review of systems otherwise negative x10 systems. Past Medical History Past Medical History (Chronic Problems): Chronic Problems (Last Updated 02/03/19 @ 18:51 by Dejah Singh MD) Asthma (Chronic) Venous insufficiency of both lower extremities (Chronic) Chronic kidney disease (Chronic) Secondary pulmonary arterial hypertension (Chronic) Chronic diastolic (congestive) heart failure (Chronic) Essential (primary) hypertension (Chronic) Non-rheumatic mitral valve stenosis (Chronic) H/O coronary 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) CABG x 1 : SVG to distal LAD 09/29/2014 Atherosclerosis of coronary artery of [place] heart without angina pectoris (Chronic) CABG x 1 : SVG to distal LAD 09/29/2014 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 Angela Alexis History of mitral valve replacement with bioprosthetic valve (Chronic 09/29/14) 09/29/2014: MVR with 27 mm Medtronic tisue valve per Dr. Angela Alexis Hyperlipidemia (Chronic) Medical History: Medical History (Last Updated 02/03/19 @ 18:51 by Dejah Singh MD) Secondary pulmonary arterial hypertension (Chronic) I27.21 Chronic diastolic (congestive) heart failure (Chronic) I50.32 Essential (primary) hypertension (Chronic) I10 Non-rheumatic mitral valve stenosis (Chronic) I34.2 Atherosclerosis of coronary artery of [place] heart without angina pectoris (Chronic) I25.10 CABG x 1 : SVG to distal LAD 09/29/2014 Chronic hypoxemic respiratory failure (Chronic) J96.11 Paroxysmal atrial fibrillation (Chronic) I48.0 Hyperlipidemia (Chronic) E78.5 Dyspnea on exertion R06.09 Edema R60.9 Pulmonary hypertension, moderate to severe I27.20 Shortness of breath R06.02 Anemia D64.9 Chronic renal failure N18.9 Depression F32.9 Peripheral vascular disease I73.9 Type 2 diabetes mellitus E11.9 Subdural bleeding (Inactive) I62.00 Allergies dronedarone [From Multaq] Allergy (Severe, Verified 02/10/19 15:50) difficulty breathing dronedarone HCl [From Multaq] Allergy (Verified 02/10/19 15:50) Other unable to breath levofloxacin [From Levaquin] Adverse Reaction (Severe, Verified 02/10/19 15:50) hallucinations, hot flashes quinapril [From Accupril] Adverse Reaction (Severe, Verified 02/10/19 15:50) near syncope cortisone Adverse Reaction (Intermediate, Verified 02/10/19 15:50) swelling hydralazine Adverse Reaction (Intermediate, Verified 02/10/19 15:50) weakness Beta-Blockers (Beta-Adrenergic Bloc Adverse Reaction (Verified 02/10/19 15:50) Other WHEEZING, shaking, passes out CARDURA Allergy (Uncoded 02/10/19 15:50) Other PT NOT SURE- POSSIBLE SWELLING NORVASC Allergy (Uncoded 02/10/19 15:50) Swelling SCALLOPS Allergy (Uncoded 02/10/19 15:50) Swelling SULFA Allergy (Uncoded 02/10/19 15:50) Other SPOTS IN MOUTH/SORE MOUTH ATIVAN Adverse Reaction (Uncoded 02/10/19 15:50) Other HALLUCINATIONS METATOPOLOL TARTATE Adverse Reaction (Uncoded 02/10/19 15:50) Other Home Medications: Ambulatory Orders Medication Instructions Recorded Albuterol Inhaler [Ventolin Hfa] 2 puff INHALATION Q4H PRN PRN #1 10/27/14 inhaler Aspirin E.C. [Ecotrin] 81 mg PO QHS 01/07/18 Albuterol Aerosols [Ventolin 3 ml INHALATION BID 06/22/18 Aerosols] Multivit-Min/Iron/Folic/Lutein 1 tab PO DAILY 06/22/18 [Centrum Silver Women Tablet] levothyroxine 88 mcg tablet 88 mcg PO DAILY 30 Days #90 tab 07/27/18 insulin lispro (U-100) 100 unit/mL See Protocol SC .with meals ml 09/29/18 subcutaneous pen Lecithin, Soy [Lecithin] 1,200 mg PO DAILY 11/23/18 Warfarin Sodium 3 mg PO SUWETHFRSA 11/23/18 Warfarin Sodium [Coumadin] 4 mg PO MOTU 11/23/18 Calcitriol [Rocaltrol] 0.25 mcg PO MOWEFR cap 11/25/18 amiodarone 200 mg tablet 100 mg PO DAILY #45 tab 12/28/18 Insulin Glargine [Lantus SoloStar 35 units SUBCUT DAILY 01/10/19 Pen] Fluticasone/Umeclidin/Vilanter 1 puff INHALATION DAILY 02/03/19 [Trelegy Ellipta 100-62.5-25] Guaifenesin [Mucinex] 1,200 mg PO DAILY 02/03/19 Insulin Lispro [Humalog KwikPen] 8 unit SUBCUT TIDAC 02/03/19 furosemide 40 mg tablet 80 mg PO BID #60 tab 02/09/19 Bumetanide 1 mg PO BID 02/10/19 Surgical History: Surgical History (Last Reviewed 01/25/19 @ 11:26 by Ely Serrato) H/O coronary artery bypass surgery (Chronic) Onset Date: 09/29/14 Z95.1 CABG x 1 : SVG to distal LAD 09/29/2014 History of maze procedure (Chronic) Onset Date: 09/29/14 Z98.890 09/29/2014 atricure pulmonary vein isolation MAZE with ligation of left atrial appendage per Dr. Angela Alexis History of mitral valve replacement with bioprosthetic valve (Chronic) Onset Date: 09/29/14 Z95.3 09/29/2014: MVR with 27 mm Medtronic tisue valve per Dr. Angela Alexis History of hysterectomy Z90.710 History of PTCA Z98.61 Surgical History: angioplasty, cataract, hysterectomy, - - s/p maze procedure, s/p mitral replacement Psychiatric History: No pertinent psych hx VASCULAR TECHNOLOGIST History: No pertinent VASCULAR TECHNOLOGIST history Smoking Status: Never smoker - *Family History Maternal Family History: Family History (Last Reviewed 01/25/19 @ 11:26 by Ely Serrato) Father CAD (coronary artery disease) Hypertension Myocardial infarction Sudden cardiac Hyperlipidemia Mother Breast cancer Brother Cancer Sister Breast cancer Hyperlipidemia Sister Hyperlipidemia History Items: Cancer Paternal Family History: Family History (Last Reviewed 01/25/19 @ 11:26 by Ely Serrato) Father CAD (coronary artery disease) Hypertension Myocardial infarction Sudden cardiac Hyperlipidemia Mother Breast cancer Brother Cancer Sister Breast cancer Hyperlipidemia Sister Hyperlipidemia History Items: Heart Disease, Stroke Sibling Family History: Family History (Last Reviewed 01/25/19 @ 11:26 by Ely Serrato) Father CAD (coronary artery disease) Hypertension Myocardial infarction Sudden cardiac Hyperlipidemia Mother Breast cancer Brother Cancer Sister Breast cancer Hyperlipidemia Sister Hyperlipidemia History Items: Cancer - in brother and sister Review of Systems Comment: See HPI Objective: Chest x-ray was personally reviewed and I agree with formal interpretation. No infiltrates are appreciated. Complete PFT (10/06/2018): Moderate mixed ventilatory defect with a symmetric reduction in diffusing capacity, but significant bronchodilator response in FEV1 consistent with asthma. Echocardiogram (01/12/2019): EF 65% with mildly dilated RV, bioprosthetic mitral valve apparatus, right ventricular systolic pressure of 72 mmHg - Physical Exam General: Alert, Cooperative, - - Mild to moderate respiratory distress. Conversational dyspnea. Obese. HEENT: Atraumatic, PERRLA, EOMI, Normocephalic, - - Scleral injection Oral: Moist Mucosa, No Gingival or Mucosal Lesions/ Ulcerations Neck: Supple, No Nodes, Trachea Midline, JVD, Right Lungs: No rales, Diminished, Wheezes - At end exhalation, - - Increased AP diameter. Symmetric expansion. No dullness to percussion. Cardiovascular: Regular rate, Regular Rhythm, Normal S1, Normal S2, Murmur - Grade 3 out of 6 systolic ejection murmur at the apex, No rub noted, No Gallop Abdomen: Bowel Sounds Present, Soft, Non Tender, Non-Distended, Obese Extremities: No clubbing, No cyanosis, Edema - 1+ lower extremity Skin: No rashes, No breakdown Musculoskeletal: No Tenderness to Palpation of Joints or Extremities Lymphatic: No Cervical, Supraclavicular, or Inguinal Adenopathy Neurological: Cranial nerves II-XII grossly intact, Neuro grossly intact, Motor Exam 5/5 strength throughout Psych/Mental Status: Alert and oriented to time, place, person, mood and affect Vital Signs Temp Pulse Resp BP Pulse Ox 36.6 C 53 L 20 H 186/67 H 94 02/11/19 12:30 02/11/19 14:37 02/11/19 14:37 02/11/19 12:30 02/11/19 12:30 Oxygen Flow Rate (L/min) 4 Oxygen Delivery Method Nasal Cannula Weight: 79.4 kg Body Mass Index (BMI) 30.7 Finger Stick Blood Glucose 97 Intake and Output for Last 24 Hours 02/09/19 02/10/19 02/11/19 23:59 23:59 23:59 Intake Total 220 / 220 660 / 660 Output Total 100 / 100 300 / 300 Balance 120 / 120 360 / 360 Laboratory Tests Past 24 Hrs 02/10/19 02/10/19 02/10/19 15:45 15:45 15:45 WBC 11.8 H RBC 4.19 L Hgb 11.1 L Hct 35.3 L MCV 84.2 MCH 26.5 L MCHC 31.4 L RDW Std Deviation 52.3 H RDW Coeff of Alejo 17.0 H Plt Count 161 MPV 10.9 Immature Gran % (Auto) 0.400 Neut % (Auto) 72.1 H Lymph % (Auto) 4.9 L Clark % (Auto) 4.6 Eos % (Auto) 17.7 H Baso % (Auto) 0.3 Absolute Neuts (auto) 8.5 H Absolute Lymphs (auto) 0.58 L Absolute Nucleated RBC 0.00 Nucleated RBC % 0 Differential Comment SCANNED Diff Path Review May foll Platelet Estimate Anisocytosis PT INR Sodium 136 Potassium 4.0 Chloride 100 Carbon Dioxide 32.0 Anion Gap 4 L BUN 41 H Creatinine 2.12 H Estim Creat Clear Calc 20.80 Est GFR (MDRD) Af Amer 29 L Est GFR (MDRD) Non-Af 24 L BUN/Creatinine Ratio 19.3 Glucose 177 H Lactic Acid 1.7 Calcium 9.2 Troponin I < 0.015 B-Natriuretic Peptide 02/10/19 02/10/19 02/11/19 15:45 15:45 05:30 WBC 6.2 RBC 3.86 L Hgb 10.0 L Hct 32.5 L MCV 84.2 MCH 25.9 L MCHC 30.8 L RDW Std Deviation 51.8 H RDW Coeff of Alejo 16.8 H Plt Count 152 MPV 11.3 Immature Gran % (Auto) 0.300 Neut % (Auto) 91.9 H Lymph % (Auto) 5.7 L Clark % (Auto) 1.1 Eos % (Auto) 0.8 Baso % (Auto) 0.2 Absolute Neuts (auto) 5.7 Absolute Lymphs (auto) 0.35 L Absolute Nucleated RBC 0.00 Nucleated RBC % 0 Differential Comment SCANNED Diff Path Review Platelet Estimate ADEQUATE Anisocytosis 1+ PT 31.4 H INR 3.0 Sodium Potassium Chloride Carbon Dioxide Anion Gap BUN Creatinine Estim Creat Clear Calc Est GFR (MDRD) Af Amer Est GFR (MDRD) Non-Af BUN/Creatinine Ratio Glucose Lactic Acid Calcium Troponin I B-Natriuretic Peptide 495.5 H 02/11/19 02/11/19 05:30 11:18 WBC RBC Hgb Hct MCV MCH MCHC RDW Std Deviation RDW Coeff of Alejo Plt Count MPV Immature Gran % (Auto) Neut % (Auto) Lymph % (Auto) Clark % (Auto) Eos % (Auto) Baso % (Auto) Absolute Neuts (auto) Absolute Lymphs (auto) Absolute Nucleated RBC Nucleated RBC % Differential Comment Diff Path Review Platelet Estimate Anisocytosis PT 35.8 H INR 3.6 H* Sodium 137 Potassium 4.9 Chloride 99 Carbon Dioxide 29.0 Anion Gap 9 BUN 48 H Creatinine 2.21 H Estim Creat Clear Calc 17.63 Est GFR (MDRD) Af Amer 28 L Est GFR (MDRD) Non-Af 23 L BUN/Creatinine Ratio 21.7 H Glucose 300 H Lactic Acid Calcium 8.6 Troponin I B-Natriuretic Peptide POC Glucose 02/11/19 02/11/19 02/10/19 11:48 08:04 22:22 POC Glucose 325 H 351 H 302 H Clinical Impression(s) from Imaging Studies Chest X-Ray 02/10/19 15:50 IMPRESSION: Prosthetic heart valve and sternotomy. No acute disease. Electronically Signed: Hoang Cummins MD at 16:18 EDT , Service support , Assessment/Plan All Active Problems (Last Updated 07/10/19 @ 18:51 by Dejah Singh MD) Hypoglycemia due to insulin (Acute) RECOMMENDATIONS: 1. Consider Haldol as needed versus Risperdal daily for anxiety 2. Could use low-dose prednisone therapy 3. Fluid optimization per primary team 4. Continue BiPAP rescue as needed, potential trilogy candidate 5. Palliative care consult IMPRESSIONS: 1. Acute on chronic hypoxic respiratory failure secondary to acute on chronic diastolic CHF Patient has a history of a mitral valve replacement and elevated RVSP of 72 mmHg. Patient has not had a right heart catheterization to my knowledge at this institution. Previous hospitalizations have resolved with diuretic therapy. Would continue with fluid optimization. Heart rate is controlled at this time. 2. COPD versus asthma Patient's fluid status has not been significantly stable for differentiation. Last pulmonary function test did show significant bronchodilator response in FEV1, consistent with a diagnosis of asthma. Patient does have some restriction, but this is likely secondary to fluid overload. Could initiate patient on prednisone taper and keep 10 mg/day. This would help with possible bronchospasm, but not fluid status. This would have to be weighed against patient's propensity to have hyperglycemia with steroid use. Defer to primary service. Unclear if patient may benefit from a trilogy machine. Patient would benefit from tidal volume directed therapy, but she is not been compliant with MAGALI therapy in the past. Unclear on patient's true goals of therapy. Patient was open to meet with palliative care during my evaluation. 3. Paroxysmal A. fib/hypertension/CAD status post CABG/mitral valve replacement Patient's heart rate appears to be controlled at this time. Patient is on amiodarone and Coumadin at baseline. Will need to watch INR closely given propensity to go supratherapeutic. No bleeding complications at this time. 4. CKD stage IV/chronic diabetic foot wounds/MAGALI/type 2 diabetes mellitus Complicates care, management, recovery and prognosis. Patient is not compliant with MAGALI therapy at baseline and this may be contributing to frequent fluid retention. Will need to watch blood sugars closely if steroids are used. Code Visit Inpatient E&M: 92933 Init Hosp L3
--- NOTE | 2019-02-11 15:02 | CHAPLAIN ---
Type of Pastoral Visit _x__ Initial Visit ___ Follow-up Visit ___ On-call Visit ___ General Patient Visit ___ Spiritual Assessment ___ Family Conference ___ Bereavement ___ Rapid Response ___ Code Blue ___ Other (describe below) Pastoral Care Referral From _x__ Patient ___ Family ___ Nurse ___ Physician ___ Banquet Houseperson ___ Regulatory Compliance Specialist ___ Other (describe below) Sacrament/Intervention ___ Active listening ___ Anointing ___ Bahai ___ Bereavement ___ Communion ___ Sara exploration ___ ___ Life review ___ Prayer ___ Reconciliation ___ Sacrament of Sick ___ Supportive presence ___ Wedding _x__ Other (describe below) Pastoral Comments this patient has been seen before by this email marketing assistant in previous admissions; referral for spiritual support placed by patient at this current admission; spouse of patient met this email marketing assistant at the doorway of room and said pt has just settled down into sleep and wished her to remain undisturbed; spouse went on to describe an unknown clergywoman that came into room earlier this day and was very dramatic and pushy in his words; spouse told clergywoman that she was disturbing the patient and wanted her to leave and not return; this email marketing assistant listened to concerns of spouse and assured him that this was not desirable behavior and this person did not represent the hospital; spouse was appreciative of concern shown by this email marketing assistant and welcomed email marketing assistant to come at another time to meet with his ;
[2019-02-11 15:25] LABS: Pathologist Review Reviewed
--- NOTE | 2019-02-11 15:43 | CASEMGMT ---
SW attempted to talk with patient about Palliative Care and [facility]. However, she was sleeping with bipap on and said she was resting right now. SW will check back with patient before discharge. Beata UNDERWOOD MSW
[2019-02-11 17:45] LABS: Bedside Glucose 212 mg/dL (70-110)
[2019-02-11] MEDS: Aspirin E.C. 81 MG Tablet PO (22:09)
[2019-02-11] MEDS: ALPRAZolam 0.25 MG Tablet PO (22:16)
[2019-02-11] MEDS: hydrALAZINE 20 MG/ML Vial 5 MG IV (22:16)
[2019-02-11 23:01] LABS: Bedside Glucose 220 mg/dL (70-110)
[2019-02-12] VITALS (17 sets, daily range): BP systolic 141–153; BP diastolic 57–71; PULSE 53–69; RESP 16–24; TEMP 35.9–36.8; O2SAT 94–99
[2019-02-12 06:23] LABS: Prothrombin Time (Protime)PT. 47.6 SECONDS (11.7-14.9)
[2019-02-12 06:27] LABS: International Normalized Ratio 5.1
[2019-02-12 06:29] LABS: Hematocrit 33.6 % (37-47); Hemoglobin 10.6 g/dL (12.0-15.0); Mean Corp Hgb Conc 31.5 g/dL (32-36); Mean Corpuscular Hgb 26.2 pg (27.0-32.0); Mean Corpuscular Volume 83.2 fL (81-99); Platelet Count 162 K/mm3 (150-450); RBC Distribution Width CV 17.1 % (11.6-14.6); RBC Distribution Width SD 51.2 fl (35.1-43.9); Red Blood Count 4.04 M/mm3 (4.2-5.4); White Blood Count 15.1 K/mm3 (4.4-11.0)
[2019-02-12 06:35] LABS: Anion Gap 3 (5-15); BUN 52 mg/dL (7-18); BUN/Creat Ratio 26.4 RATIO (10-20); Calcium,Total 8.7 mg/dL (8.5-10.1); Chloride 101 mmol/L (98-107); Creatinine, Serum 1.97 mg/dL (0.55-1.02); EST Glomerular Filtration Rate 26 mL/min (>60); Est Glom Filt Rate - Afr Amer 32 mL/min (>60); Estimated Creatinine Clearance 19.78 ml/min; Glucose 129 mg/dL (74-106); Potassium 4.1 mmol/L (3.5-5.1); Sodium Level 137 mmol/L (136-145)
[2019-02-12] MEDS: Ipratropium/Albuterol Sulfate 3 ML AMPUL.NEB INHALATION ×2 (06:46→19:16)
[2019-02-12] MEDS: Insulin Lispro 100 UNIT/ML INSULN.PEN 8 UNIT SC ×3 (08:19→16:01)
[2019-02-12] MEDS: Glucerna Shake 120 ML LIQUID PO ×4 (08:23→22:03)
[2019-02-12] MEDS: guaiFENesin 1,200 MG Tablet 1200 MG PO (08:23)
[2019-02-12] MEDS: Amiodarone 200 MG Tablet 100 MG PO (08:30)
[2019-02-12] MEDS: Furosemide 100 MG/10 ML Vial 80 MG IV ×2 (08:31→16:02)
[2019-02-12] MEDS: 0.9% NaCl Peripheral Flush Adult/Peds IV ×3 (08:32→16:09)
--- NOTE | 2019-02-12 08:35 | PCM.PN.PUL ---
Subjective: Patient did okay overnight. Patient does report subjective improvement in overall condition. Patient was placed on Xanax therapy and feels that this helped her get some sleep overnight. Patient was still on 5 L nasal cannula this morning, but had high saturations. Patient denied any chest pain or palpitations. Patient is not had accurate I's and O's overnight, but weight is decreased - Physical Exam General: Alert, Oriented x3, Cooperative, No apparent distress, - - No conversational dyspnea noted. HEENT: Atraumatic, PERRLA, EOMI, Normocephalic, - - No scleral icterus or injection noted. Oral: Moist Mucosa, No Gingival or Mucosal Lesions/ Ulcerations, - - Patient found sleeping off of BiPAP therapy Neck: Supple, No JVD, No Nodes, Trachea Midline Lungs: No rhonchi, No wheeze, No rales, Diminished, - - Symmetric expansion. No dullness to percussion. Cardiovascular: Regular rate, Regular Rhythm, Normal S1, Normal S2, No murmurs, No rub noted, No Gallop Abdomen: Bowel Sounds Present, Soft, Non Tender, Non-Distended, Obese Extremities: No cyanosis, Clubbing, Edema - Improved Skin: - - No significant change compared to previous Musculoskeletal: No Tenderness to Palpation of Joints or Extremities Lymphatic: No Cervical, Supraclavicular, or Inguinal Adenopathy Neurological: Cranial nerves II-XII grossly intact, Neuro grossly intact, Motor Exam 5/5 strength throughout Psych/Mental Status: Alert and oriented to time, place, person, mood and affect Vital Signs Temp Pulse Resp BP Pulse Ox 36.4 C L 57 L 18 144/67 H 94 02/12/19 08:07 02/12/19 08:07 02/12/19 08:07 02/12/19 08:07 02/12/19 08:07 Oxygen Flow Rate (L/min) 4 Oxygen Delivery Method Nasal Cannula Weight: 78.1 kg Body Mass Index (BMI) 30.7 Finger Stick Blood Glucose 97 Intake and Output for Last 24 Hours 02/10/19 02/11/19 02/12/19 23:59 23:59 23:59 Intake Total 220 / 220 960 / 960 480 / 480 Output Total 100 / 100 900 / 900 1150 / 1150 Balance 120 / 120 60 / 60 -670 / -670 Laboratory Tests Past 24 Hrs 02/10/19 02/11/19 02/12/19 15:45 11:18 05:45 WBC RBC Hgb Hct MCV MCH MCHC RDW Std Deviation RDW Coeff of Alejo Plt Count MPV Diff Path Review Reviewed PT 35.8 H 47.6 H INR 3.6 H* 5.1 H* Sodium Potassium Chloride Carbon Dioxide Anion Gap BUN Creatinine Estim Creat Clear Calc Est GFR (MDRD) Af Amer Est GFR (MDRD) Non-Af BUN/Creatinine Ratio Glucose Calcium 02/12/19 02/12/19 05:45 05:45 WBC 15.1 H RBC 4.04 L Hgb 10.6 L Hct 33.6 L MCV 83.2 MCH 26.2 L MCHC 31.5 L RDW Std Deviation 51.2 H RDW Coeff of Alejo 17.1 H Plt Count 162 MPV 11.0 Diff Path Review PT INR Sodium 137 Potassium 4.1 Chloride 101 Carbon Dioxide 33.0 H Anion Gap 3 L BUN 52 H Creatinine 1.97 H Estim Creat Clear Calc 19.78 Est GFR (MDRD) Af Amer 32 L Est GFR (MDRD) Non-Af 26 L BUN/Creatinine Ratio 26.4 H Glucose 129 H Calcium 8.7 POC Glucose 02/11/19 02/11/19 02/11/19 22:07 17:06 11:48 POC Glucose 220 H 212 H 325 H Medical Necessity - Tobacco Use Smoking Status: Never smoker Assessment/Plan All Active Problems (Last Updated 02/03/19 @ 18:51 by Dejah Singh MD) Hypoglycemia due to insulin (Acute) RECOMMENDATIONS: 1. Consider Haldol as needed versus Risperdal daily for anxiety 2. Could place on low-dose prednisone therapy, 10 mg daily 3. Fluid optimization per primary team 4. Continue BiPAP rescue as needed, potential trilogy candidate 5. Palliative care consult IMPRESSIONS: 1. Acute on chronic hypoxic respiratory failure secondary to acute on chronic diastolic CHF Patient has a history of a mitral valve replacement and elevated RVSP of 72 mmHg. Patient has not had a right heart catheterization to my knowledge at this institution. Previous hospitalizations have resolved with diuretic therapy. Patient appears to be responding appropriately to diuretic therapy. Addition of anxiolytic may be helping with air trapping associated with tachypnea. Improvement in renal function with diuretics is suggestive of improved contractility secondary to improve Starling forces with diuresis. 2. COPD versus asthma Patient's fluid status has not been significantly stable for differentiation. Last pulmonary function test did show significant bronchodilator response in FEV1, consistent with a diagnosis of asthma. Patient does have some restriction, but this is likely secondary to fluid overload. Could initiate patient on prednisone 10 mg/day. This would help with possible bronchospasm, but not fluid status. This would have to be weighed against patient's propensity to have hyperglycemia with steroid use. Defer to primary service. Unclear if patient may benefit from a trilogy machine. Patient would benefit from tidal volume directed therapy, but she is not been compliant with MAGALI therapy in the past. Unclear on patient's true goals of therapy. Patient was open to meet with palliative care during my evaluation. 3. Paroxysmal A. fib/hypertension/CAD status post CABG/mitral valve replacement Patient's heart rate appears to be controlled at this time. Patient is on amiodarone and Coumadin at baseline. Will need to watch INR closely given propensity to go supratherapeutic. No bleeding complications at this time. Likely sufficient to just hold Coumadin for now 4. CKD stage IV/chronic diabetic foot wounds/MAGALI/type 2 diabetes mellitus Complicates care, management, recovery and prognosis. Patient is not compliant with MAGALI therapy at baseline and this may be contributing to frequent fluid retention. Will need to watch blood sugars closely if steroids are used. Code Visit Inpatient E&M: 59890 Subs Hosp L3
[2019-02-12 09:41] LABS: Bedside Glucose 121 mg/dL (70-110)
--- NOTE | 2019-02-12 10:21 | CASEMGMT ---
SW met with patient and her . Introduced self and role at [facility]. SW talked with them about Palliative Care. SW told them that Palliative will come to her home and see her. SW explained they help with symptom management and they work with her current physicians. SW explained the goal is to help prevent having to go back and forth to the hospital for ED visits and admissions as they help address the symptoms at home. They both were interested. They asked if Palliative could come tomorrow am. KP told them SW will let them know that is convenient for them. SW also asked if the plan is home at discharge and patient's said he will take her home. Patient currently has [facility]. SW called Palliative Care and left a vm for Sonal as well as faxed information. Beata UNDERWOOD MSW
[2019-02-12] MEDS: ALPRAZolam 0.25 MG Tablet PO (10:32)
[2019-02-12] MEDS: Albuterol 2.5 MG/3 ML VIAL.NEB. INHALATION ×2 (10:39→23:25)
[2019-02-12] MEDS: Insulin Lispro 100 UNIT/ML INSULN.PEN SC ×2 (11:31→22:04)
--- NOTE | 2019-02-12 11:41 | CASEMGMT ---
KP notified patient, her , and RN that Palliative Care will be in tomorrow at 9am to meet with them. Beata UNDERWOOD MSW
[2019-02-12 11:46] LABS: Bedside Glucose 150 mg/dL (70-110)
--- NOTE | 2019-02-12 12:15 | CASEMGMT ---
Resumption of care order in for [facility] and green sheet on chart at this time. SStyesenia PORTILLO CM
--- NOTE | 2019-02-12 14:42 | PN_ITS ---
Subjective: Patient seen and examined. Patient reports mild improvement in breathing. Reports Xanax helped her relax and sleep overnight. Complains of generalized weakness. - Physical Exam General: Alert, Oriented x3, Cooperative HEENT: Atraumatic, PERRLA, EOMI, Normocephalic Oral: Dry Mucosa Neck: Supple, No JVD, Negative Carotid Bruits Lungs: Diminished, Wheezes Cardiovascular: Regular rate, Regular Rhythm, Normal S1, Normal S2, No murmurs Abdomen: Bowel Sounds Present, Soft, Non Tender, Non-Distended Extremities: No clubbing, No cyanosis, No edema, Capillary Refill Less than 3 Seconds Skin: No rashes, No breakdown, - - Chronic skin changes bilateral extremities. Musculoskeletal: No Tenderness to Palpation of Joints or Extremities Neurological: Cranial nerves II-XII grossly intact, Neuro grossly intact Psych/Mental Status: Normal Affect, Appropriate Vital Signs Temp Pulse Resp BP Pulse Ox 97.6 F L 61 22 H 144/67 H 94 02/12/19 08:07 02/12/19 10:39 02/12/19 10:39 02/12/19 08:07 02/12/19 08:07 Oxygen Flow Rate (L/min) 2.5 Oxygen Delivery Method Nasal Cannula Weight: 172 lb 2.896 oz Body Mass Index (BMI) 30.7 Finger Stick Blood Glucose 97 Intake and Output for Last 24 Hours 02/10/19 02/11/19 02/12/19 23:59 23:59 23:59 Intake Total 220 / 220 960 / 960 480 / 480 Output Total 100 / 100 900 / 900 1150 / 1150 Balance 120 / 120 60 / 60 -670 / -670 Laboratory Tests Past 24 Hrs 02/10/19 02/12/19 02/12/19 15:45 05:45 05:45 WBC 15.1 H RBC 4.04 L Hgb 10.6 L Hct 33.6 L MCV 83.2 MCH 26.2 L MCHC 31.5 L RDW Std Deviation 51.2 H RDW Coeff of Alejo 17.1 H Plt Count 162 MPV 11.0 Diff Path Review Reviewed PT 47.6 H INR 5.1 H* Sodium Potassium Chloride Carbon Dioxide Anion Gap BUN Creatinine Estim Creat Clear Calc Est GFR (MDRD) Af Amer Est GFR (MDRD) Non-Af BUN/Creatinine Ratio Glucose Calcium 02/12/19 05:45 WBC RBC Hgb Hct MCV MCH MCHC RDW Std Deviation RDW Coeff of Alejo Plt Count MPV Diff Path Review PT INR Sodium 137 Potassium 4.1 Chloride 101 Carbon Dioxide 33.0 H Anion Gap 3 L BUN 52 H Creatinine 1.97 H Estim Creat Clear Calc 19.78 Est GFR (MDRD) Af Amer 32 L Est GFR (MDRD) Non-Af 26 L BUN/Creatinine Ratio 26.4 H Glucose 129 H Calcium 8.7 POC Glucose 02/12/19 02/12/19 02/11/19 11:26 08:04 22:07 POC Glucose 150 H 121 H 220 H 02/11/19 17:06 POC Glucose 212 H Medical Necessity - Tobacco Use Smoking Status: Never smoker Assessment/Plan All Active Problems (Last Updated 02/03/19 @ 18:51 by Dejah Singh MD) Hypoglycemia due to insulin (Acute) 1. Chronic hypoxic respiratory failure secondary to acute on chronic diastolic CHF-patient chronically wears 2 L nasal cannula at bedtime and as needed. Continue supplement oxygen to maintain O2 at or above 90%. Oxygen stable on b aseline O2 requirements. Continue BiPAP nightly and as needed. 2. Acute on chronic diastolic CHF-BNP 495. Chest x-ray without acute process. Echocardiogram 01/12/19 with EF 65%, mild to moderate tricuspid valve insufficiency, mild to moderate pulmonic valve insufficiency, RVSP estimated to be 72 mmHg. Strict I&O. Daily weight. Patient was discharged in December on Bumex 2 mg twice daily per nephrology recommendations. However she reports at follow- up with nephrology, her Bumex regimen was reduced to 1 mg twice daily. She reports she has not been doing well on this regimen and feels she was doing better on Lasix. Continue IV Lasix 80 mg twice daily. Discussed with nephrology, Dr. Flores who recommends discharge on Bumex 2 mg twice daily. Continue IV Lasix until patient is at dry weight. 3. Acute on chronic COPD-pulmonary medicine following. Initiated on IV Solu- Medrol due to wheezing on exam today. Patient may benefit from low-dose daily prednisone therapy. Patient unable to tolerate BiPAP and has been refusing to wear. Palliative care consulted. 4. CAD status post CABG-continue aspirin, Not on statin. 5. Type 2 diabetes mellitus-continue home insulin regimen. 6. Paroxysmal atrial fibrillation, on anticoagulation with Coumadin, INR supratherapeutic-continue amiodarone, Coumadin. Hold Coumadin, trend INR. 7. Hypertension-previously on losartan which was discontinued due to kidney function. As needed hydralazine for systolic blood pressure greater than 160. May need additional oral regimen at discharge. 8. Chronic kidney disease stage IV-follows with Dr. Flores. Baseline creatinine 1.9-2.5. Creatinine at baseline. No HERNAN. 9. Status post mitral valve replacement with bioprosthetic valve-stable per echo as noted above. 10. Hypothyroidism-continue Synthroid regimen. 11. Chronic foot diabetic wounds/ulcerations-left heel, left superior foot, and right great toe ulcerations, present on admission. Continue dry dressing daily to left dorsal foot and right plantar surface of the great toe. Mendez wraps bilateral lower extremities. 12. MAGALI-noncompliant with CPAP regimen. Encouraged CPAP use. DVT prophylaxis- Coumadin. Discharge planning: Anticipate need for SNF, follow PT recommendations. Palliative care meeting with patient and tomorrow. CODE STATUS: CODE STATUS discussed with patient, she does not wish to be intu bated if this were to become necessary. DNR CCA. This patient was seen by JOSE ANGEL Null under the supervision of Dr. Benson.
[2019-02-12 16:21] LABS: Bedside Glucose 145 mg/dL (70-110)
[2019-02-12] MEDS: Aspirin E.C. 81 MG Tablet PO (22:03)
[2019-02-12] MEDS: ALPRAZolam 0.25 MG Tablet 0.125 MG PO (22:07)
[2019-02-12 22:40] LABS: Bedside Glucose 397 mg/dL (70-110)
--- NOTE | 2019-02-12 23:00 | NURSING ---
This RN encouraged patient to wear bi-pap, she refused it. She stated she does not care for the mask and will not wear it.
[2019-02-13] VITALS (13 sets, daily range): BP systolic 145–166; BP diastolic 61–86; PULSE 55–114; RESP 16–19; TEMP 36.6–36.8; O2SAT 95–100
[2019-02-13] MEDS: 0.9% NaCl Peripheral Flush Adult/Peds IV ×2 (06:06→08:37)
[2019-02-13] MEDS: Levothyroxine 88 MCG Tablet PO (06:06)
[2019-02-13 06:09] LABS: Hematocrit 34.2 % (37-47); Hemoglobin 10.6 g/dL (12.0-15.0); Mean Platelet Vol. 11.2 fl (6.2-12.0); Platelet Count 150 K/mm3 (150-450); RBC Distribution Width CV 16.8 % (11.6-14.6); RBC Distribution Width SD 51.6 fl (35.1-43.9); Red Blood Count 4.07 M/mm3 (4.2-5.4); White Blood Count 10.8 K/mm3 (4.4-11.0)
[2019-02-13 06:17] LABS: International Normalized Ratio 3.3; Prothrombin Time (Protime)PT. 33.5 SECONDS (11.7-14.9)
[2019-02-13] MEDS: Ipratropium/Albuterol Sulfate 3 ML AMPUL.NEB INHALATION ×3 (06:44→22:15)
[2019-02-13 07:21] LABS: Anion Gap 7 (5-15); BUN 62 mg/dL (7-18); BUN/Creat Ratio 28.3 RATIO (10-20); Calcium,Total 8.3 mg/dL (8.5-10.1); Chloride 99 mmol/L (98-107); Creatinine, Serum 2.19 mg/dL (0.55-1.02); EST Glomerular Filtration Rate 23 mL/min (>60); Est Glom Filt Rate - Afr Amer 28 mL/min (>60); Glucose 355 mg/dL (74-106); Potassium 4.9 mmol/L (3.5-5.1); Sodium Level 138 mmol/L (136-145)
--- NOTE | 2019-02-13 08:28 | PCM.PN.PUL ---
Subjective: Patient did well overnight. Patient reports subjective improvement in dyspnea. Patient still has episodes of anxiety leading to desaturation. Patient has not used BiPAP in over 2 days. Patient is to meet with palliative care at 9 AM today. Did discuss with the patient at length about the potential utility of BiPAP versus trilogy. Patient appears to be pre-contemplative, but states my would probably make me use it. Patient suffers from claustrophobia and this is the reason she has not used her BiPAP since she is been here. - Physical Exam General: Alert, Oriented x3, Cooperative, No apparent distress, - - No conversational dyspnea. HEENT: Atraumatic, PERRLA, EOMI, Normocephalic, - - No scleral icterus or injection noted. Oral: Moist Mucosa, No Gingival or Mucosal Lesions/ Ulcerations Neck: Supple, No JVD, No Nodes, Trachea Midline Lungs: No rhonchi, No wheeze, No rales, Diminished, - - Symmetric expansion. No dullness to percussion. Cardiovascular: Regular rate, Regular Rhythm, Normal S1, Normal S2, Murmur, No rub noted, No Gallop Abdomen: Bowel Sounds Present, Soft, Non Tender, Non-Distended, Obese Extremities: No clubbing, No cyanosis, No edema Skin: - - No significant change compared to previous Musculoskeletal: No Tenderness to Palpation of Joints or Extremities Lymphatic: No Cervical, Supraclavicular, or Inguinal Adenopathy Neurological: Cranial nerves II-XII grossly intact, Neuro grossly intact, Motor Exam 5/5 strength throughout Psych/Mental Status: Alert and oriented to time, place, person, mood and affect Vital Signs Temp Pulse Resp BP Pulse Ox 36.6 C 56 L 18 148/66 H 95 02/13/19 03:44 02/13/19 07:11 02/13/19 06:44 02/13/19 03:44 02/13/19 06:44 Oxygen Flow Rate (L/min) 3 Oxygen Delivery Method Nasal Cannula Weight: 78.5 kg Body Mass Index (BMI) 30.7 Finger Stick Blood Glucose 97 Intake and Output for Last 24 Hours 02/11/19 02/12/19 02/13/19 23:59 23:59 23:59 Intake Total 960 / 960 1080 / 1080 120 / 120 Output Total 900 / 900 2275 / 2275 500 / 500 Balance 60 / 60 -1195 / -1195 -380 / -380 Laboratory Tests Past 24 Hrs 02/13/19 02/13/19 02/13/19 05:20 05:20 05:20 WBC 10.8 RBC 4.07 L Hgb 10.6 L Hct 34.2 L MCV 84.0 MCH 26.0 L MCHC 31.0 L RDW Std Deviation 51.6 H RDW Coeff of Alejo 16.8 H Plt Count 150 MPV 11.2 PT 33.5 H INR 3.3 Sodium 138 Potassium 4.9 Chloride 99 Carbon Dioxide 32.0 Anion Gap 7 BUN 62 H Creatinine 2.19 H Estim Creat Clear Calc 17.80 Est GFR (MDRD) Af Amer 28 L Est GFR (MDRD) Non-Af 23 L BUN/Creatinine Ratio 28.3 H Glucose 355 H Calcium 8.3 L POC Glucose 02/12/19 02/12/19 02/12/19 22:02 16:00 11:26 POC Glucose 397 H 145 H 150 H 02/12/19 08:04 POC Glucose 121 H Medical Necessity - Tobacco Use Smoking Status: Never smoker Assessment/Plan All Active Problems (Last Updated 02/03/19 @ 18:51 by Dejah Singh MD) Hypoglycemia due to insulin (Acute) RECOMMENDATIONS: 1. Await results of palliative care conversation 2. Transition to prednisone 10 mg daily to be continued indefinitely 3. Fluid optimization per primary team 4. Continue BiPAP rescue as needed, potential trilogy candidate 5. Walking oximetry prior to discharge IMPRESSIONS: 1. Acute on chronic hypoxic respiratory failure secondary to acute on chronic diastolic CHF Patient has a history of a mitral valve replacement and elevated RVSP of 72 mmHg. Patient has not had a right heart catheterization to my knowledge at this institution. Previous hospitalizations have resolved with diuretic therapy. Patient appears to be responding appropriately to diuretic therapy. Patient is down 3 kg over the course of the hospitalization. Addition of anxiolytic may be helping with air trapping associated with tachypnea. 2. COPD versus asthma Patient's fluid status has not been significantly stable for differentiation. Last pulmonary function test did show significant bronchodilator response in FEV1, consistent with a diagnosis of asthma. Patient does have some restriction, but this is likely secondary to fluid overload. We will continue patient on patient on prednisone 10 mg/day indefinitely. This would help with possible bronchospasm, but not fluid status. This would have to be weighed against patient's propensity to have hyperglycemia with steroid use. Defer to primary service. Unclear if patient may benefit from a trilogy machine. Patient would benefit from tidal volume directed therapy, but she is not been compliant with MAGALI therapy in the past. Unclear on patient's true goals of therapy. Await results of palliative care discussion. 3. Paroxysmal A. fib/hypertension/CAD status post CABG/mitral valve replacement Patient's heart rate appears to be controlled at this time. Patient is on amiodarone and Coumadin at baseline. Will need to watch INR closely given propensity to go supratherapeutic. No bleeding complications at this time. Likely sufficient to just hold Coumadin for now 4. CKD stage IV/chronic diabetic foot wounds/MAGALI/type 2 diabetes mellitus Complicates care, management, recovery and prognosis. Patient is not compliant with MAGALI therapy at baseline and this may be contributing to frequent fluid retention. Will need to watch blood sugars closely if steroids are used. Code Visit Inpatient E&M: 26231 Subs Hosp L2
[2019-02-13] MEDS: Amiodarone 200 MG Tablet 100 MG PO (08:36)
[2019-02-13] MEDS: guaiFENesin 1,200 MG Tablet 1200 MG PO (08:36)
[2019-02-13] MEDS: Insulin Lispro 100 UNIT/ML INSULN.PEN SC ×4 (08:36→22:03)
[2019-02-13] MEDS: Insulin Lispro 100 UNIT/ML INSULN.PEN 8 UNIT SC ×3 (08:37→16:00)
[2019-02-13] MEDS: Furosemide 100 MG/10 ML Vial 80 MG IV (08:37)
[2019-02-13 09:00] LABS: Bedside Glucose 364 mg/dL (70-110)
[2019-02-13] MEDS: ALPRAZolam 0.25 MG Tablet 0.125 MG PO ×2 (10:58→22:04)
[2019-02-13 11:05] LABS: Bedside Glucose 312 mg/dL (70-110)
[2019-02-13] MEDS: predniSONE 10 MG Tablet PO (11:55)
--- NOTE | 2019-02-13 12:52 | PN_ITS ---
Subjective: Patient seen and examined. Overall feels improved today. She has continued to have a few breathing attacks overnight and early this morning. - Physical Exam General: Alert, Oriented x3, Cooperative HEENT: Atraumatic, PERRLA, EOMI, Normocephalic Oral: Dry Mucosa Neck: Supple, No JVD, Negative Carotid Bruits Lungs: Diminished, Wheezes Cardiovascular: Regular rate, Regular Rhythm, Normal S1, Normal S2, No murmurs Abdomen: Bowel Sounds Present, Soft, Non Tender, Non-Distended Extremities: No clubbing, No cyanosis, No edema, Capillary Refill Less than 3 Seconds Skin: No rashes, No breakdown, - - Chronic skin changes bilateral lower extremities. Musculoskeletal: No Tenderness to Palpation of Joints or Extremities Neurological: Cranial nerves II-XII grossly intact, Neuro grossly intact Psych/Mental Status: Normal Affect, Appropriate Vital Signs Temp Pulse Resp BP Pulse Ox 98.0 F 99 16 158/79 H 98 02/13/19 12:02 02/13/19 12:02 02/13/19 12:02 02/13/19 12:02 02/13/19 12:02 Oxygen Flow Rate (L/min) 2 Oxygen Delivery Method Nasal Cannula Weight: 173 lb 1.006 oz Body Mass Index (BMI) 30.7 Finger Stick Blood Glucose 97 Intake and Output for Last 24 Hours 02/11/19 02/12/19 02/13/19 23:59 23:59 23:59 Intake Total 960 / 960 1080 / 1080 420 / 420 Output Total 900 / 900 2275 / 2275 2049 / 2049 Balance 60 / 60 -1195 / -1195 -1630 / -1630 Laboratory Tests Past 24 Hrs 02/13/19 02/13/19 02/13/19 05:20 05:20 05:20 WBC 10.8 RBC 4.07 L Hgb 10.6 L Hct 34.2 L MCV 84.0 MCH 26.0 L MCHC 31.0 L RDW Std Deviation 51.6 H RDW Coeff of Alejo 16.8 H Plt Count 150 MPV 11.2 PT 33.5 H INR 3.3 Sodium 138 Potassium 4.9 Chloride 99 Carbon Dioxide 32.0 Anion Gap 7 BUN 62 H Creatinine 2.19 H Estim Creat Clear Calc 17.80 Est GFR (MDRD) Af Amer 28 L Est GFR (MDRD) Non-Af 23 L BUN/Creatinine Ratio 28.3 H Glucose 355 H Calcium 8.3 L POC Glucose 02/13/19 02/13/19 02/12/19 11:01 08:27 22:02 POC Glucose 312 H 364 H 397 H 02/12/19 16:00 POC Glucose 145 H Medical Necessity - Tobacco Use Smoking Status: Never smoker Assessment/Plan All Active Problems (Last Updated 02/03/19 @ 18:51 by Dejah Singh MD) Hypoglycemia due to insulin (Acute) 1. Chronic hypoxic respiratory failure secondary to acute on chronic diastolic CHF-patient chronically wears 2 L nasal cannula at bedtime and as needed. Continue supplement oxygen to maintain O2 at or above 90%. Oxygen stable on baseline O2 requirements. Continue BiPAP nightly and as needed. 2. Acute on chronic diastolic CHF-BNP 495. Chest x-ray without acute process. Echocardiogram 01/12/19 with EF 65%, mild to moderate tricuspid valve insufficie ncy, mild to moderate pulmonic valve insufficiency, RVSP estimated to be 72 mmHg. Strict I&O. Daily weight. Patient was discharged in December on Bumex 2 mg twice daily per nephrology recommendations. However she reports at follow-up with nephrology, her Bumex regimen was reduced to 1 mg twice daily. She reports she has not been doing well on this regimen and feels she was doing better on Lasix. Discontinue IV Lasix given increasing creatinine. Discussed with nephrology, Dr. Flores who recommends discharge on Bumex 2 mg twice daily. Transition to oral Bumex. 3. Acute on chronic COPD-pulmonary medicine following. Continue IV Solu- Medrol, continues to have wheezing. Patient may benefit from low-dose daily prednisone therapy. Patient unable to tolerate BiPAP and has been refusing to wear. Palliative care consulted. 4. CAD status post CABG-continue aspirin, Not on statin. 5. Type 2 diabetes mellitus-continue home insulin regimen. 6. Paroxysmal atrial fibrillation, on anticoagulation with Coumadin-continue amiodarone, Coumadin. Trend INR. 7. Hypertension-previously on losartan which was discontinued due to kidney function. As needed hydralazine for systolic blood pressure greater than 160. May need additional oral regimen at discharge. 8. Chronic kidney disease stage IV-follows with Dr. Flores. Baseline creatinine 1.9-2.5. Creatinine at baseline. No HERNAN. 9. Status post mitral valve replacement with bioprosthetic valve-stable per echo as noted above. 10. Hypothyroidism-continue Synthroid regimen. 11. Chronic foot diabetic wounds/ulcerations-left heel, left superior foot, and right great toe ulcerations, present on admission. Continue dry dressing daily to left dorsal foot and right plantar surface of the great toe. Mendez wraps bilateral lower extremities. 12. MAGALI-noncompliant with CPAP regimen. Encouraged CPAP use. DVT prophylaxis- Coumadin. Discharge planning: Patient met with palliative care and is agreeable to follow with palliative care at discharge. Plan for discharge home with palliative care services. CODE STATUS: CODE STATUS discussed with patient, she does not wish to be intubated if this were to become necessary. DNR CCA. This patient was seen by JOSE ANGEL Null under the supervision of Dr. Benson.
[2019-02-13] MEDS: Glucerna Shake 120 ML LIQUID PO ×3 (14:39→22:02)
[2019-02-13 16:36] LABS: Bedside Glucose 320 mg/dL (70-110)
[2019-02-13] MEDS: Bumetanide 2 MG Tablet PO (17:28)
--- NOTE | 2019-02-13 19:20 | CPS ---
Pt refusing to wear bipap for night time use and/or for sob episodes. Pt states that she is claustrophobic and the mask bothers her. Risks/benefits explained to pt and in which they verbalize understanding and she continues to refuse at this time.
[2019-02-13] MEDS: Aspirin E.C. 81 MG Tablet PO (22:05)
[2019-02-13 22:40] LABS: Bedside Glucose 317 mg/dL (70-110)
[2019-02-14] VITALS (13 sets, daily range): BP systolic 115–152; BP diastolic 64–91; PULSE 92–122; RESP 16–20; TEMP 36.3–36.8; O2SAT 96–100
[2019-02-14] MEDS: Levothyroxine 88 MCG Tablet PO (06:39)
[2019-02-14] MEDS: Ipratropium/Albuterol Sulfate 3 ML AMPUL.NEB INHALATION ×3 (06:54→19:15)
[2019-02-14 07:12] LABS: International Normalized Ratio 2.3; Prothrombin Time (Protime)PT. 25.2 SECONDS (11.7-14.9)
--- NOTE | 2019-02-14 07:25 | EKG12_ITS ---
Test Reason : RHYTHM CHECK Blood Pressure : / mmHG Vent. Rate : 099 BPM Atrial Rate : 110 BPM P-R Int : 000 ms QRS Dur : 102 ms QT Int : 386 ms P-R-T Axes : 000 121 -44 degrees QTc Int : 495 ms Atrial fibrillation Left posterior fascicular block Abnormal QRS-T angle, consider primary T wave abnormality Prolonged QT Abnormal ECG When compared with ECG of 10-FEB-2019 16:11, MANUAL COMPARISON REQUIRED, DATA IS UNCONFIRMED Confirmed by RAVIN IZAGUIRRE, JAZMIN ([id number]), publication editor SHIRLENE KOVACS ([id number]) on 02/16/2019 1:57:43 PM Referred By: Whit Yeager Confirmed By:JAZMIN ALICIA MD
[2019-02-14 07:39] LABS: Anion Gap 8 (5-15); BUN 62 mg/dL (7-18); BUN/Creat Ratio 32.3 RATIO (10-20); Calcium,Total 8.5 mg/dL (8.5-10.1); Chloride 100 mmol/L (98-107); Creatinine, Serum 1.92 mg/dL (0.55-1.02); EST Glomerular Filtration Rate 27 mL/min (>60); Est Glom Filt Rate - Afr Amer 33 mL/min (>60); Glucose 186 mg/dL (74-106); Sodium Level 142 mmol/L (136-145)
--- NOTE | 2019-02-14 08:16 | PN_ITS ---
Subjective: Patient is doing well this morning. Patient feels back to baseline on 2 L nasal cannula oxygen. Patient denies any cough. Patient did have significant urine output yesterday and states I have to be better for his much as I peed. Patient states that she has agreed to palliative referral and is interested to see how this helps her as an outpatient. - Physical Exam General: Alert, Oriented x3, Cooperative, No apparent distress, Well developed, Well nourished, - - Speaking in full sentences. HEENT: Atraumatic, PERRLA, EOMI, Normocephalic, - - No scleral icterus or injection noted. Oral: Moist Mucosa, No Gingival or Mucosal Lesions/ Ulcerations Neck: Supple, No JVD, No Nodes, Trachea Midline Lungs: No rhonchi, No wheeze, No rales, Diminished, - - Symmetric expansion. No dullness to percussion. Cardiovascular: Regular rate, Regular Rhythm, Normal S1, Normal S2, Murmur - Unchanged, No rub noted, No Gallop Abdomen: Bowel Sounds Present, Soft, Non Tender, Non-Distended Extremities: No clubbing, No cyanosis, No edema, Capillary Refill Less than 3 Seconds Skin: - - No change compared to previous Musculoskeletal: No Tenderness to Palpation of Joints or Extremities Lymphatic: No Cervical, Supraclavicular, or Inguinal Adenopathy Neurological: Cranial nerves II-XII grossly intact, Neuro grossly intact, Motor Exam 5/5 strength throughout Psych/Mental Status: Alert and oriented to time, place, person, mood and affect Vital Signs Temp Pulse Resp BP Pulse Ox 36.3 C L 94 18 152/91 H 96 02/14/19 03:55 02/14/19 07:14 02/14/19 06:54 02/14/19 03:55 02/14/19 06:54 Oxygen Flow Rate (L/min) 2 Oxygen Delivery Method Nasal Cannula Weight: 76.6 kg Body Mass Index (BMI) 30.7 Finger Stick Blood Glucose 97 Intake and Output for Last 24 Hours 02/12/19 02/13/19 02/14/19 23:59 23:59 23:59 Intake Total 1080 / 1080 1020 / 1020 240 / 240 Output Total 2275 / 2275 4275 / 4275 500 / 500 Balance -1195 / -1195 -3255 / -3255 -260 / -260 Laboratory Tests Past 24 Hrs 02/14/19 02/14/19 06:38 06:38 PT 25.2 H INR 2.3 Sodium 142 Potassium 4.0 Chloride 100 Carbon Dioxide 34.0 H Anion Gap 8 BUN 62 H Creatinine 1.92 H Estim Creat Clear Calc 20.30 Est GFR (MDRD) Af Amer 33 L Est GFR (MDRD) Non-Af 27 L BUN/Creatinine Ratio 32.3 H Glucose 186 H Calcium 8.5 POC Glucose 02/13/19 02/13/19 02/13/19 22:01 15:59 11:01 POC Glucose 317 H 320 H 312 H 02/13/19 08:27 POC Glucose 364 H Medical Necessity - Tobacco Use Smoking Status: Never smoker Assessment/Plan All Active Problems (Last Updated 02/03/19 @ 18:51 by Dejah Singh MD) Hypoglycemia due to insulin (Acute) RECOMMENDATIONS: 1. Okay to discharge from a pulmonary perspective 2. Transition to prednisone 10 mg daily to be continued indefinitely 3. Fluid optimization per primary team 4. Follow-up with nurse practitioner 2 weeks after discharge 5. Walking oximetry prior to discharge 6. Potentially initiate BiPAP as an outpatient if patient is compliant with CPAP IMPRESSIONS: 1. Acute on chronic hypoxic respiratory failure secondary to acute on chronic diastolic CHF Patient has a history of a mitral valve replacement and elevated RVSP of 72 mmHg. Patient has not had a right heart catheterization to my knowledge at this institution. Previous hospitalizations have resolved with diuretic therapy. Patient appears to be responding appropriately to diuretic therapy. Patient is down 5 kg over the course of the hospitalization. Addition of anxiolytic may be helping with air trapping associated with tachypnea. Patient can be evaluated for BiPAP therapy if she is compliant with CPAP therapy on discharge. Walking oximetry prior to discharge for oxygen recommendations. Patient does have supplemental oxygen already at home. 2. COPD versus asthma Patient's fluid status has not been significantly stable for differentiation. Last pulmonary function test did show significant bronchodilator response in FEV1, consistent with a diagnosis of asthma. Patient does have some restriction, but this is likely secondary to fluid overload. We will continue patient on patient on prednisone 10 mg/day indefinitely. This would help with possible bronchospasm, but not fluid status. This would have to be weighed against patient's propensity to have hyperglycemia with steroid use. Defer to primary service. Unclear if patient may benefit from a trilogy machine. Patient would benefit from tidal volume directed therapy, but she is not been compliant with MAGALI therapy in the past. Unclear on patient's true goals of therapy. Await results of palliative care discussion. Patient should follow-up with nurse practitioner in our office 2 weeks after discharge. 3. Paroxysmal A. fib/hypertension/CAD status post CABG/mitral valve repl acement Patient's heart rate appears to be controlled at this time. Patient is on amiodarone and Coumadin at baseline. Will need to watch INR closely given propensity to go supratherapeutic. No bleeding complications at this time. Likely sufficient to just hold Coumadin for now 4. CKD stage IV/chronic diabetic foot wounds/MAGALI/type 2 diabetes mellitus Complicates care, management, recovery and prognosis. Patient is not compliant with MAGALI therapy at baseline and this may be contributing to frequent fluid retention. Will need to watch blood sugars closely. Code Visit Inpatient E&M: 91311 Subs Hosp L2
[2019-02-14] MEDS: guaiFENesin 1,200 MG Tablet 1200 MG PO (08:33)
[2019-02-14] MEDS: Bumetanide 2 MG Tablet PO ×2 (08:33→17:05)
[2019-02-14] MEDS: Amiodarone 200 MG Tablet 100 MG PO (08:33)
[2019-02-14] MEDS: predniSONE 10 MG Tablet PO (08:33)
[2019-02-14] MEDS: Insulin Lispro 100 UNIT/ML INSULN.PEN 8 UNIT SC ×3 (08:34→17:05)
[2019-02-14 08:41] LABS: Bedside Glucose 141 mg/dL (70-110)
[2019-02-14] MEDS: ALPRAZolam 0.25 MG Tablet 0.125 MG PO ×2 (10:11→21:23)
--- NOTE | 2019-02-14 10:36 | PN_ITS ---
Subjective: Patient seen and examined. Reports overall she feels improved. States she is scared to go home, request to go to TCU at discharge if beds are available. - Physical Exam General: Alert, Oriented x3, Cooperative HEENT: Atraumatic, PERRLA, EOMI, Normocephalic Neck: Supple, No JVD, Negative Carotid Bruits Lungs: Diminished, Wheezes Cardiovascular: Regular rate, Regular Rhythm, Normal S1, Normal S2, No murmurs Abdomen: Bowel Sounds Present, Soft, Non Tender, Non-Distended Extremities: No clubbing, No cyanosis, No edema, Capillary Refill Less than 3 Seconds Skin: No rashes, - - Chronic skin changes, hyperpigmentation bilateral lower extremities Musculoskeletal: No Tenderness to Palpation of Joints or Extremities Neurological: Cranial nerves II-XII grossly intact, Neuro grossly intact Psych/Mental Status: Normal Affect, Appropriate Vital Signs Temp Pulse Resp BP Pulse Ox 97.8 F 98 16 118/82 H 98 02/14/19 08:28 02/14/19 08:28 02/14/19 08:28 02/14/19 08:28 02/14/19 08:28 Oxygen Flow Rate (L/min) 2 Oxygen Delivery Method Nasal Cannula Weight: 168 lb 13.985 oz Body Mass Index (BMI) 30.7 Finger Stick Blood Glucose 97 Intake and Output for Last 24 Hours 02/12/19 02/13/19 02/14/19 23:59 23:59 23:59 Intake Total 1080 / 1080 1020 / 1020 240 / 240 Output Total 2275 / 2275 4275 / 4275 500 / 500 Balance -1195 / -1195 -3255 / -3255 -260 / -260 Laboratory Tests Past 24 Hrs 02/14/19 02/14/19 06:38 06:38 PT 25.2 H INR 2.3 Sodium 142 Potassium 4.0 Chloride 100 Carbon Dioxide 34.0 H Anion Gap 8 BUN 62 H Creatinine 1.92 H Estim Creat Clear Calc 20.30 Est GFR (MDRD) Af Amer 33 L Est GFR (MDRD) Non-Af 27 L BUN/Creatinine Ratio 32.3 H Glucose 186 H Calcium 8.5 POC Glucose 02/14/19 02/13/19 02/13/19 08:23 22:01 15:59 POC Glucose 141 H 317 H 320 H 02/13/19 11:01 POC Glucose 312 H Medical Necessity - Tobacco Use Smoking Status: Never smoker Assessment/Plan All Active Problems (Last Updated 02/03/19 @ 18:51 by Dejah Singh MD) Hypoglycemia due to insulin (Acute) 1. Chronic hypoxic respiratory failure secondary to acute on chronic diastolic CHF-patient chronically wears 2 L nasal cannula at bedtime and as needed. Continue supplement oxygen to maintain O2 at or above 90%. Oxygen stable on baseline O2 requirements. Continue BiPAP nightly and as needed. 2. Acute on chronic diastolic CHF-BNP 495. Chest x-ray without acute process. Echocardiogram 01/12/19 with EF 65%, mild to moderate tricuspid valve insufficiency, mild to moderate pulmonic valve insufficiency, RVSP estimated to be 72 mmHg. Strict I&O. Daily weight. Patient was discharged in December on Bumex 2 mg twice daily per nephrology recommendations. However she reports at follow- up with nephrology, her Bumex regimen was reduced to 1 mg twice daily. She reports she has not been doing well on this regimen and feels she was doing better on Lasix. IV Lasix discontinued. Discussed with nephrology, Dr. Flores who recommends discharge on Bumex 2 mg twice daily. Transitioned to oral Bumex. 3. Acute on chronic COPD-pulmonary medicine following. Continue IV Solu- Medrol, continues to have wheezing. Patient may benefit from low-dose daily prednisone therapy. Patient unable to tolerate BiPAP and has been refusing to wear. Palliative care consulted. 4. CAD status post CABG-continue aspirin, Not on statin. 5. Type 2 diabetes mellitus-continue home insulin regimen. 6. Paroxysmal atrial fibrillation, on anticoagulation with Coumadin-continue amiodarone, Coumadin. Trend INR. 7. Hypertension-previously on losartan which was discontinued due to kidney function. As needed hydralazine for systolic blood pressure greater than 160. 8. Chronic kidney disease stage IV-follows with Dr. Flores. Baseline creatinine 1.9-2.5. Creatinine at baseline. No HERNAN. 9. Status post mitral valve replacement with bioprosthetic valve-stable per echo as noted above. 10. Hypothyroidism-continue Synthroid regimen. 11. Chronic foot diabetic wounds/ulcerations-left heel, left superior foot, and right great toe ulcerations, present on admission. Continue dry dressing daily to left dorsal foot and right plantar surface of the great toe. Mendez wraps bilateral lower extremities. 12. MAGALI-noncompliant with CPAP regimen. Encouraged CPAP use. 13. Dysphagia- ST following. Plan for swallow study Friday. DVT prophylaxis- Coumadin. CODE STATUS: CODE STATUS discussed with patient, she does not wish to be intubated if this were to become necessary. DNR CCA. Discharge planning: Patient requesting TCU at discharge, will notify SW/CM. Patient will follow with palliative care. This patient was seen by JOSE ANGEL Null under the supervision of Dr. Benson.
[2019-02-14 11:46] LABS: Bedside Glucose 128 mg/dL (70-110)
[2019-02-14] MEDS: Digoxin 250 MCG Tablet 500 MCG PO (11:59)
[2019-02-14] MEDS: Glucerna Shake 120 ML LIQUID PO ×2 (13:54→21:24)
[2019-02-14] MEDS: Amiodarone 200 MG Tablet PO ×2 (16:07→22:36)
[2019-02-14 16:50] LABS: Bedside Glucose 201 mg/dL (70-110)
[2019-02-14] MEDS: Insulin Lispro 100 UNIT/ML INSULN.PEN SC ×2 (17:05→22:43)
--- NOTE | 2019-02-14 21:20 | NURSING ---
This RN spoke with patient and about sugar, salt and water intake. Patient's brought patient skittles and sugary snacks. Use of cpap was discussed and explained the need for cpap during night. Reinforcement is still needed.
[2019-02-14] MEDS: Aspirin E.C. 81 MG Tablet PO (21:23)
[2019-02-14 22:05] LABS: Bedside Glucose 476 mg/dL (70-110)
[2019-02-15] VITALS (12 sets, daily range): BP systolic 127–154; BP diastolic 60–86; PULSE 80–101; RESP 17–20; TEMP 36.4–37; O2SAT 99–100
--- NOTE | 2019-02-15 01:05 | CPS ---
Patient refusing to wear bipap for the night.
[2019-02-15] MEDS: Insulin Lispro 100 UNIT/ML INSULN.PEN SC ×3 (03:08→21:12)
[2019-02-15 03:15] LABS: Bedside Glucose 208 mg/dL (70-110)
[2019-02-15 06:03] LABS: International Normalized Ratio 1.9; Prothrombin Time (Protime)PT. 21.3 SECONDS (11.7-14.9)
[2019-02-15 06:15] LABS: Anion Gap 7 (5-15); BUN 60 mg/dL (7-18); BUN/Creat Ratio 31.9 RATIO (10-20); Calcium,Total 8.5 mg/dL (8.5-10.1); Chloride 101 mmol/L (98-107); Creatinine, Serum 1.88 mg/dL (0.55-1.02); EST Glomerular Filtration Rate 28 mL/min (>60); Est Glom Filt Rate - Afr Amer 33 mL/min (>60); Estimated Creatinine Clearance 20.73 ml/min; Glucose 126 mg/dL (74-106); Potassium 3.7 mmol/L (3.5-5.1); Sodium Level 144 mmol/L (136-145)
[2019-02-15] MEDS: Levothyroxine 88 MCG Tablet PO (06:39)
[2019-02-15] MEDS: Ipratropium/Albuterol Sulfate 3 ML AMPUL.NEB INHALATION ×3 (07:08→19:14)
[2019-02-15] MEDS: Insulin Lispro 100 UNIT/ML INSULN.PEN 8 UNIT SC ×3 (08:10→17:12)
[2019-02-15] MEDS: Glucerna Shake 120 ML LIQUID PO ×2 (08:17→14:34)
[2019-02-15] MEDS: predniSONE 10 MG Tablet PO (08:23)
[2019-02-15] MEDS: Bumetanide 2 MG Tablet PO ×2 (08:23→17:14)
[2019-02-15] MEDS: Digoxin 125 MCG Tablet PO (08:24)
[2019-02-15] MEDS: guaiFENesin 1,200 MG Tablet 1200 MG PO (08:25)
[2019-02-15] MEDS: ALPRAZolam 0.25 MG Tablet 0.125 MG PO ×2 (08:30→21:11)
[2019-02-15] MEDS: Amiodarone 200 MG Tablet PO ×2 (08:30→21:11)
[2019-02-15 08:40] LABS: Bedside Glucose 97 mg/dL (70-110)
--- NOTE | 2019-02-15 10:50 | CASEMGMT ---
Patient would like to go to TCU. KP spoke with Jennifer in TCU, she would have a bed for patient and she will start pre-cert request. KP spoke with patient and her letting them know TCU will have a bed for her, but we have to wait on insurance to approve. Plan: d/c to [facility] TCU pending insurance approval. Beata HILLIARD
[2019-02-15 11:25] LABS: Bedside Glucose 115 mg/dL (70-110)
--- NOTE | 2019-02-15 11:37 | PN_ITS ---
Subjective: Patient seen and examined. Ambulating hallway without significant shortness of breath. Overall feels improved. Plan for TCU at discharge. - Physical Exam General: Alert, Oriented x3, Cooperative HEENT: Atraumatic, PERRLA, EOMI, Normocephalic Neck: Supple, No JVD, Negative Carotid Bruits Lungs: Diminished, Wheezes Cardiovascular: Regular rate, Regular Rhythm, Normal S1, Normal S2, No murmurs Abdomen: Bowel Sounds Present, Soft, Non Tender, Non-Distended Extremities: No clubbing, No cyanosis, No edema, Capillary Refill Less than 3 Seconds Skin: No rashes, No breakdown, - - Chronic skin changes with hyperpigmentation bilateral lower extremities. Musculoskeletal: No Tenderness to Palpation of Joints or Extremities Neurological: Cranial nerves II-XII grossly intact, Neuro grossly intact Psych/Mental Status: Normal Affect, Appropriate Vital Signs Temp Pulse Resp BP Pulse Ox 98.3 F 83 17 139/69 H 100 02/15/19 08:31 02/15/19 08:31 02/15/19 08:31 02/15/19 08:31 02/15/19 08:31 Oxygen Flow Rate (L/min) 2 Oxygen Delivery Method Nasal Cannula Weight: 170 lb 10.205 oz Body Mass Index (BMI) 30.7 Finger Stick Blood Glucose 97 Intake and Output for Last 24 Hours 02/13/19 02/14/19 02/15/19 23:59 23:59 23:59 Intake Total 1020 / 1020 830 / 830 525 / 525 Output Total 4275 / 4275 1999 / 1999 600 / 600 Balance -3255 / -3255 -1170 / -1170 -75 / -75 Laboratory Tests Past 24 Hrs 02/15/19 02/15/19 05:05 05:05 PT 21.3 H INR 1.9 Sodium 144 Potassium 3.7 Chloride 101 Carbon Dioxide 36.0 H Anion Gap 7 BUN 60 H Creatinine 1.88 H Estim Creat Clear Calc 20.73 Est GFR (MDRD) Af Amer 33 L Est GFR (MDRD) Non-Af 28 L BUN/Creatinine Ratio 31.9 H Glucose 126 H Calcium 8.5 POC Glucose 02/15/19 02/15/19 02/15/19 11:20 08:05 03:06 POC Glucose 115 H 97 208 H 02/14/19 02/14/1919 21:07 16:43 11:37 POC Glucose 476 H* 201 H 128 H Medical Necessity - Tobacco Use Smoking Status: Never smoker Assessment/Plan All Active Problems (Last Updated 02/03/19 @ 18:51 by Dejah Singh MD) Hypoglycemia due to insulin (Acute) 1. Chronic hypoxic respiratory failure secondary to acute on chronic diastolic CHF-patient chronically wears 2 L nasal cannula at bedtime and as needed. Continue supplement oxygen to maintain O2 at or above 90%. Oxygen stable on baseline O2 requirements. Continue BiPAP nightly and as needed. 2. Acute on chronic diastolic CHF-BNP 495. Chest x-ray without acute process. Echocardiogram 01/12/19 with EF 65%, mild to moderate tricuspid valve insufficiency, mild to moderate pulmonic valve insufficiency, RVSP estimated to be 72 mmHg. Strict I&O. Daily weight. Patient was discharged in December on Bumex 2 mg twice daily per nephrology recommendations. However she reports at follow- up with nephrology, her Bumex regimen was reduced to 1 mg twice daily. She reports she has not been doing well on this regimen and feels she was doing better on Lasix. IV Lasix discontinued. Discussed with nephrology, Dr. Flores who recommends discharge on Bumex 2 mg twice daily. Transitioned to oral Bumex. 3. Acute on chronic COPD-pulmonary medicine following. DC IV solumedrol. Transition to prednisone 10mg daily. Patient unable to tolerate BiPAP and has been refusing to wear. Patient signed with palliative care for further sx management. 4. CAD status post CABG-continue aspirin, Not on statin. 5. Type 2 diabetes mellitus-continue home insulin regimen. 6. Paroxysmal atrial fibrillation, on anticoagulation with Coumadin-continue amiodarone, Coumadin. Trend INR. Patient atrial fibrillation with RVR during admission and home amiodarone regimen and increased to 200 mg twice daily which we will continue for 1 week and then reduce to 200 mg daily. Patient additionally started on digoxin 125 mcg daily which will need to be monitored closely at discharge given chronic kidney disease. 7. Hypertension-previously on losartan which was discontinued due to kidney function. As needed hydralazine for systolic blood pressure greater than 160. 8. Chronic kidney disease stage IV-follows with Dr. Flores. Baseline creatinine 1.9-2.5. Creatinine at baseline. No HERNAN. 9. Status post mitral valve replacement with bioprosthetic valve-stable per echo as noted above. 10. Hypothyroidism-continue Synthroid regimen. 11. Chronic foot diabetic wounds/ulcerations-left heel, left superior foot, and right great toe ulcerations, present on admission. Continue dry dressing daily to left dorsal foot and right plantar surface of the great toe. Mendez wraps bilateral lower extremities. 12. MAGALI-noncompliant with CPAP regimen. Encouraged CPAP use. 13. Dysphagia- ST following. Continue outpatient swallow study as previously scheduled. No indication to complete during admission. DVT prophylaxis- Coumadin. CODE STATUS: CODE STATUS discussed with patient, she does not wish to be intubated if this were to become necessary. DNR CCA. Discharge planning: TCU at discharge pending pre-cert. Patient will follow with palliative care. This patient was seen by JOSE ANGEL Null under the supervision of Dr. Benson.
--- NOTE | 2019-02-15 12:38 | PN_ITS ---
Subjective: Patient did okay overnight. Patient continues to be noncompliant with BiPAP therapy. Patient's oxygen saturation continues to improve. Patient has reported some hoarseness today that she attributes to the initiation of Bumex therapy. - Physical Exam General: Alert, Oriented x3, Cooperative, No apparent distress, Well developed, Well nourished, - - No conversational dyspnea. HEENT: Atraumatic, PERRLA, EOMI, Normocephalic, - - No scleral icterus or injection noted. Oral: Moist Mucosa, No Gingival or Mucosal Lesions/ Ulcerations Neck: Supple, No JVD, No Nodes, Trachea Midline Lungs: No rhonchi, No wheeze, No rales, Diminished, - - Symmetric expansion. No dullness to percussion. Cardiovascular: Regular rate, Regular Rhythm, Normal S1, Normal S2, No murmurs, No rub noted, No Gallop Abdomen: Bowel Sounds Present, Soft, Non Tender, Non-Distended Extremities: No cyanosis, No edema, Capillary Refill Less than 3 Seconds, Club lizzie Skin: - - No change from previous. Musculoskeletal: No Tenderness to Palpation of Joints or Extremities Lymphatic: No Cervical, Supraclavicular, or Inguinal Adenopathy Neurological: Cranial nerves II-XII grossly intact, Neuro grossly intact, Motor Exam 5/5 strength throughout Psych/Mental Status: Anxious, Flat Affect Vital Signs Temp Pulse Resp BP Pulse Ox 36.8 C 87 17 139/69 H 100 02/15/19 08:31 02/15/19 11:39 02/15/19 08:31 02/15/19 08:31 02/15/19 08:31 Oxygen Flow Rate (L/min) 2 Oxygen Delivery Method Nasal Cannula Weight: 77.4 kg Body Mass Index (BMI) 30.7 Finger Stick Blood Glucose 97 Intake and Output for Last 24 Hours 02/13/19 02/14/19 02/15/19 23:59 23:59 23:59 Intake Total 1020 / 1020 830 / 830 525 / 525 Output Total 4275 / 4275 1999 / 1999 600 / 600 Balance -3255 / -3255 -1170 / -1170 -75 / -75 Laboratory Tests Past 24 Hrs 02/15/19 02/15/19 05:05 05:05 PT 21.3 H INR 1.9 Sodium 144 Potassium 3.7 Chloride 101 Carbon Dioxide 36.0 H Anion Gap 7 BUN 60 H Creatinine 1.88 H Estim Creat Clear Calc 20.73 Est GFR (MDRD) Af Amer 33 L Est GFR (MDRD) Non-Af 28 L BUN/Creatinine Ratio 31.9 H Glucose 126 H Calcium 8.5 POC Glucose 02/15/19 02/15/19 02/15/19 11:20 08:05 03:06 POC Glucose 115 H 97 208 H 02/14/19 02/14/19 21:07 16:43 POC Glucose 476 H* 201 H Medical Necessity - Tobacco Use Smoking Status: Never smoker Assessment/Plan All Active Problems (Last Updated 02/03/19 @ 18:51 by Dejah Singh MD) Hypoglycemia due to insulin (Acute) RECOMMENDATIONS: 1. Okay to discharge to TCU from a pulmonary perspective 2. Transition to prednisone 10 mg daily to be continued indefinitely 3. Fluid optimization per primary team 4. Follow-up with nurse practitioner 2 weeks after discharge 5. Walking oximetry prior to discharge 6. Patient should be continued on BiPAP therapy while on TCU. If compliant, this can be arranged for home using a diagnosis of chronic respiratory failure IMPRESSIONS: 1. Acute on chronic hypoxic respiratory failure secondary to acute on chronic diastolic CHF Patient has a history of a mitral valve replacement and elevated RVSP of 72 mmHg. Patient has not had a right heart catheterization to my knowledge at this institution. Previous hospitalizations have resolved with diuretic therapy. Patient appears to be responding appropriately to diuretic therapy. Patient is down over 5 kg over the course of the hospitalization. Addition of anxiolytic may be helping with air trapping associated with tachypnea. Patient can be initiated on BiPAP therapy in the TCU. If compliant, we could arrange for a BiPAP as an outpatient using a diagnosis of chronic respiratory failure, not sleep apnea. Walking oximetry prior to discharge for oxygen recommendations. Patient does have supplemental oxygen already at home. 2. COPD versus asthma Patient's fluid status has not been significantly stable for differentiation. Last pulmonary function test did show significant bronchodilator response in FEV1, consistent with a diagnosis of asthma. Patient does have some restriction, but this is likely secondary to fluid overload. We will continue patient on patient on prednisone 10 mg/day indefinitely. This would help with possible bronchospasm, but not fluid status. This would have to be weighed against patient's propensity to have hyperglycemia with steroid use. Defer to primary service. Unclear if patient may benefit from a trilogy machine. Patient would benefit from tidal volume directed therapy, but she is not been compliant with MAGALI therapy in the past. Unclear on patient's true goals of therapy. Patient encouraged to follow with palliative care. Patient should follow-up with nurse practitioner in our office 2 weeks after discharge from TCU. 3. Paroxysmal A. fib/hypertension/CAD status post CABG/mitral valve replacement Patient's heart rate appears to be controlled at this time. Patient is on amiodarone and Coumadin at baseline. Will need to watch INR closely given propensity to go supratherapeutic. No bleeding complications at this time. Likely sufficient to just hold Coumadin for now 4. CKD stage IV/chronic diabetic foot wounds/MAGALI/type 2 diabetes mellitus Complicates care, management, recovery and prognosis. Patient is not compliant with MAGALI therapy at baseline and this may be contributing to frequent fluid retention. Will need to watch blood sugars closely. Code Visit Inpatient E&M: 20176 Subs Hosp L2
--- NOTE | 2019-02-15 15:51 | CHAPLAIN ---
Type of Pastoral Visit _x__ Initial Visit ___ Follow-up Visit ___ On-call Visit ___ General Patient Visit ___ Spiritual Assessment ___ Family Conference ___ Bereavement ___ Rapid Response ___ Code Blue ___ Other (describe below) Pastoral Care Referral From _x__ Patient ___ Family ___ Nurse ___ Physician ___ Corn Miller ___ Medical Assistant Supervisor ___ Other (describe below) Sacrament/Intervention _x__ Active listening ___ Anointing ___ Denominational ___ Bereavement ___ Communion ___ Sara exploration ___ ___ Life review _x__ Prayer ___ Reconciliation ___ Sacrament of Sick _x__ Supportive presence ___ Wedding ___ Other (describe below) Pastoral Comments
[2019-02-15 16:25] LABS: Bedside Glucose 315 mg/dL (70-110)
[2019-02-15] MEDS: Aspirin E.C. 81 MG Tablet PO (21:11)
[2019-02-15 21:21] LABS: Bedside Glucose 314 mg/dL (70-110)
[2019-02-16] VITALS (14 sets, daily range): BP systolic 123–146; BP diastolic 51–81; PULSE 53–91; RESP 16–18; TEMP 36.4–36.9; O2SAT 98–100
[2019-02-16 02:16] LABS: Bedside Glucose 144 mg/dL (70-110)
[2019-02-16] MEDS: Levothyroxine 88 MCG Tablet PO (05:09)
[2019-02-16 06:19] LABS: Anion Gap 6 (5-15); BUN 59 mg/dL (7-18); BUN/Creat Ratio 28.6 RATIO (10-20); Chloride 102 mmol/L (98-107); Creatinine, Serum 2.06 mg/dL (0.55-1.02); EST Glomerular Filtration Rate 25 mL/min (>60); Est Glom Filt Rate - Afr Amer 30 mL/min (>60); Estimated Creatinine Clearance 18.92 ml/min; Glucose 117 mg/dL (74-106); International Normalized Ratio 1.7; Potassium 4.1 mmol/L (3.5-5.1); Prothrombin Time (Protime)PT. 19.5 SECONDS (11.7-14.9); Sodium Level 144 mmol/L (136-145)
[2019-02-16] MEDS: Ipratropium/Albuterol Sulfate 3 ML AMPUL.NEB INHALATION ×3 (06:49→18:49)
--- NOTE | 2019-02-16 07:20 | PN_ITS ---
Subjective: Patient did well overnight. No acute issues were reported. Patient does report some soreness of the legs and a sensation of numbing bilaterally. Patient has attributed this to her diuretic therapy. Oxygen saturations have remained stable on 2 L nasal cannula. No cough is been reported. Patient is not using BiPAP overnight to sleep. - Physical Exam General: Alert, Oriented x3, Cooperative, No apparent distress, Well developed, Well nourished, - - No conversational dyspnea. HEENT: Atraumatic, PERRLA, EOMI, Normocephalic, - - No scleral icterus or injection noted. Oral: Moist Mucosa, No Gingival or Mucosal Lesions/ Ulcerations Neck: Supple, No JVD, No Nodes, Trachea Midline Lungs: No rhonchi, No wheeze, No rales, Diminished, - - Symmetric expansion. No dullness to percussion. Cardiovascular: Regular rate, Regular Rhythm, Normal S1, Normal S2, No murmurs, No rub noted, No Gallop Abdomen: Bowel Sounds Present, Soft, Non Tender, Non-Distended Extremities: No clubbing, No cyanosis, No edema, Capillary Refill Less than 3 Seconds Skin: No rashes, No breakdown Musculoskeletal: No Tenderness to Palpation of Joints or Extremities Lymphatic: No Cervical, Supraclavicular, or Inguinal Adenopathy Neurological: Cranial nerves II-XII grossly intact, Neuro grossly intact, Motor Exam 5/5 strength throughout Psych/Mental Status: Alert and oriented to time, place, person, mood and affect Vital Signs Temp Pulse Resp BP Pulse Ox 36.6 C 71 18 144/81 H 100 02/16/19 02:15 02/16/19 03:52 02/16/19 02:15 02/16/19 02:15 02/16/19 02:15 Oxygen Flow Rate (L/min) 2 Oxygen Delivery Method Nasal Cannula Weight: 76.4 kg Body Mass Index (BMI) 30.7 Finger Stick Blood Glucose 97 Intake and Output for Last 24 Hours 02/14/19 02/15/19 02/16/19 23:59 23:59 23:59 Intake Total 830 / 830 1415 / 1655 360 / 360 Output Total 1999 / 1999 1350 / 1800 1450 / 1450 Balance -1170 / -1170 65 / -145 -1090 / -1090 Laboratory Tests Past 24 Hrs 02/16/19 02/16/19 05:30 05:30 PT 19.5 H INR 1.7 Sodium 144 Potassium 4.1 Chloride 102 Carbon Dioxide 36.0 H Anion Gap 6 BUN 59 H Creatinine 2.06 H Estim Creat Clear Calc 18.92 Est GFR (MDRD) Af Amer 30 L Est GFR (MDRD) Non-Af 25 L BUN/Creatinine Ratio 28.6 H Glucose 117 H Calcium 8.0 L POC Glucose 02/16/19 02/15/19 02/15/19 02:01 21:10 16:19 POC Glucose 144 H 314 H 315 H 02/15/19 02/15/19 11:20 08:05 POC Glucose 115 H 97 Medical Necessity - Tobacco Use Smoking Status: Never smoker Assessment/Plan All Active Problems (Last Updated 02/03/19 @ 18:51 by Dejah Singh MD) Hypoglycemia due to insulin (Acute) RECOMMENDATIONS: 1. Okay to discharge to TCU from a pulmonary perspective 2. Continue prednisone 10 mg daily indefinitely 3. Likely okay to slow down on diuresis from my perspective 4. Follow-up with nurse practitioner 2 weeks after discharge 5. Walking oximetry prior to discharge 6. Patient should be continued on BiPAP therapy while on TCU. If compliant, this can be arranged for home using a diagnosis of chronic respiratory failure IMPRESSIONS: 1. Acute on chronic hypoxic respiratory failure secondary to acute on chronic diastolic CHF Patient has a history of a mitral valve replacement and elevated RVSP of 72 mmHg. Patient has not had a right heart catheterization to my knowledge at this institution. Previous hospitalizations have resolved with diuretic therapy. Patient appears to be responding appropriately to diuretic therapy. Patient appears to be euvolemic from my perspective. Would consider decreasing diuretic therapy. Addition of anxiolytic may be helping with air trapping associated with tachypnea. Patient can be initiated on BiPAP therapy in the TCU. If compliant, we could arrange for a BiPAP as an outpatient using a diagnosis of chronic respiratory failure, not sleep apnea. Walking oximetry prior to discharge for oxygen recommendations. Patient does have supplemental oxygen already at home. 2. COPD versus asthma Patient's fluid status has not been significantly stable for differentiation. Last pulmonary function test did show significant bronchodilator response in FEV1, consistent with a diagnosis of asthma. Patient does have some restriction, but this is likely secondary to fluid overload. We will continue patient on patient on prednisone 10 mg/day indefinitely. This would help with possible bronchospasm, but not fluid status. This would have to be weighed against patient's propensity to have hyperglycemia with steroid use. Defer to primary service. Patient would benefit from tidal volume directed th erapy, but she is not been compliant with MAGALI therapy in the past. Unclear on patient's true goals of therapy. Patient encouraged to follow with palliative care. Patient should follow-up with nurse practitioner in our office 2 weeks after discharge from TCU. 3. Paroxysmal A. fib/hypertension/CAD status post CABG/mitral valve replacement Patient's heart rate appears to be controlled at this time. Patient is on amiodarone and Coumadin at baseline. Will need to watch INR closely given propensity to go supratherapeutic. No bleeding complications at this time. Likely sufficient to just hold Coumadin for now 4. CKD stage IV/chronic diabetic foot wounds/MAGALI/type 2 diabetes mellitus Complicates care, management, recovery and prognosis. Patient is not compliant with MAGALI therapy at baseline and this may be contributing to frequent fluid retention. Will need to watch blood sugars closely. Code Visit Inpatient E&M: 00899 Subs Hosp L2
[2019-02-16] MEDS: Insulin Lispro 100 UNIT/ML INSULN.PEN 8 UNIT SC ×3 (07:51→16:57)
[2019-02-16] MEDS: Digoxin 125 MCG Tablet PO (07:55)
[2019-02-16] MEDS: Amiodarone 200 MG Tablet PO ×2 (07:55→21:38)
[2019-02-16] MEDS: guaiFENesin 1,200 MG Tablet 1200 MG PO (07:56)
[2019-02-16] MEDS: predniSONE 10 MG Tablet PO (07:57)
[2019-02-16] MEDS: Bumetanide 2 MG Tablet PO ×2 (07:57→16:59)
[2019-02-16 08:01] LABS: Bedside Glucose 124 mg/dL (70-110)
[2019-02-16] MEDS: ALPRAZolam 0.25 MG Tablet 0.125 MG PO ×2 (08:01→21:38)
[2019-02-16] MEDS: Glucerna Shake 120 ML LIQUID PO ×2 (08:01→16:59)
--- NOTE | 2019-02-16 11:59 | PCM.EXTCARCO ---
- Diet 02/10/19 19:54 Diet: Cardiac/Low Cholesterol Food consistency:: Regular Liquid Consistency:: Regular/Thin Is pt able to select menu?: Yes Diet: Fluid Restriction Food consistency:: Regular Liquid Consistency:: Regular/Thin Is pt able to select menu?: Yes Fluid restriction:: 1500 mL - Routine Orders/Code Status Enema Type: Fleetz Enema Frequency: Daily PRN Suppository Type: Dulcolax 10mg Suppository Frequency: Daily PRN O2 Liters per Minute: 2-4 O2 Frequency: Continuous Keep PO Greater than or Equal to (%): 90 Routine Lab Work: - - BMP, INR daily X3 days. Then BMP, CBC and INR weekly. Code Status: [facility] - Wound(s) R big toe Wound Type: Neuropathic/Diabetic Foot Ulcer L foot Wound Type: Neuropathic/Diabetic Foot Ulcer l knee Wound Type: scab L Antunez Wound Type: blister from edema - Suggestions for Active Care Change Position every (hours): 2 Times a day to sit in chair: 3 - Therapies Physical Therapy: Eval and Treat Occupational Therapy: Eval and Treat Speech Therapy: Eval and Treat - Problem/Diagnosis (1) Chronic kidney disease Status: Chronic Current Visit: No (2) Chronic diastolic (congestive) heart failure Status: Acute Current Visit: Yes (3) Essential (primary) hypertension Status: Chronic Current Visit: No (4) H/O coronary artery bypass surgery Status: Chronic Comment: CABG x 1 : SVG to distal LAD 09/29/2014 Current Visit: No (5) Chronic hypoxemic respiratory failure Status: Chronic Current Visit: No (6) Paroxysmal atrial fibrillation Status: Chronic Current Visit: No (7) Hyperlipidemia Status: Chronic Current Visit: No - Allergies/Procedures Done in Hospital Allergies/Adverse Reactions: Allergies dronedarone [From Multaq] Allergy (Severe, Verified 02/10/19 15:50) difficulty breathing dronedarone HCl [From Multaq] Allergy (Verified 02/10/19 15:50) Other unable to breath levofloxacin [From Levaquin] Adverse Reaction (Severe, Verified 02/10/19 15:50) hallucinations, hot flashes quinapril [From Accupril] Adverse Reaction (Severe, Verified 02/10/19 15:50) near syncope cortisone Adverse Reaction (Intermediate, Verified 02/10/19 15:50) swelling hydralazine Adverse Reaction (Intermediate, Verified 02/10/19 15:50) weakness Beta-Blockers (Beta-Adrenergic Bloc Adverse Reaction (Verified 02/10/19 15:50) Other WHEEZING, shaking, passes out CARDURA Allergy (Uncoded 02/10/19 15:50) Other PT NOT SURE- POSSIBLE SWELLING NORVASC Allergy (Uncoded 02/10/19 15:50) Swelling SCALLOPS Allergy (Uncoded 02/10/19 15:50) Swelling SULFA Allergy (Uncoded 02/10/19 15:50) Other SPOTS IN MOUTH/SORE MOUTH ATIVAN Adverse Reaction (Uncoded 02/10/19 15:50) Other HALLUCINATIONS METATOPOLOL TARTATE Adverse Reaction (Uncoded 02/10/19 15:50) Other Procedures: None - Type of Care/Length of Stay Estimated LOS: Convalescent Care Less Than 30 days Type of Care Needed: Skilled Rehab Potential: Fair Prognosis: Fair - Additional Orders/Day of Discharge Additional Orders: Continue amiodarone 200 mg twice daily for 7 days and then amiodarone 200 mg daily. Recommend consulting nephrology, Dr. Ulloa for routine monitoring of renal function, diuretic regimen. Daily weights. Patient has upcoming swallow study 02/24/2018 which will need completed while on TCU. H&P will serve as current which was dated: 02/10/19 Day of Discharge: 02/17/19 - Dietary and Speech Recommendations Dietitian Recommendations/Changes: Recommend change to 1600 calorie; cardiac/low sodium diet with 1500ml FR- consistency per VECTOR CONTROL ASSISTANT. Continue Glucerna shake with medpass as tolerated per pt request despite overall good PO at meals. - Follow Up Care Primary Care Physician: Jovana Moulton MD [Primary Care Provider] - Please follow up with your Primary Care Physician in: 1 Week Please Follow Up With: Lety Ulloa DO When: 1 week, follow while on TCU Please Follow Up With: Deonte Suarez DO When: Palliative care to follow at discharge.
[2019-02-16] MEDS: Insulin Lispro 100 UNIT/ML INSULN.PEN SC ×3 (12:00→21:42)
[2019-02-16 12:11] LABS: Bedside Glucose 188 mg/dL (70-110)
--- NOTE | 2019-02-16 14:17 | CASEMGMT ---
SW notified physician, RN, SPEEDER OPERATOR, and patient she was approved for TCU and they will have a bed for her tomorrow. Beata UNDERWOOD MSW
--- NOTE | 2019-02-16 14:44 | PN_ITS ---
Patient Problems: Active and Suspected Problems (Last Updated 02/03/19 @ 18:51 by Dejah Singh MD) Chronic diastolic (congestive) heart failure (Acute) Subjective: Patient seen and examined. Continues to feel improved. Awaiting on acceptance to TCU. Denies significant shortness of breath. - Physical Exam General: Alert, Oriented x3, Cooperative HEENT: Atraumatic, PERRLA, EOMI, Normocephalic Neck: Supple, No JVD, Negative Carotid Bruits Lungs: Diminished, Wheezes Cardiovascular: - - Atrial fibrillation Abdomen: Bowel Sounds Present, Soft, Non Tender, Non-Distended Extremities: No clubbing, No cyanosis, Capillary Refill Less than 3 Seconds, Edema - Non pitting BLLE Skin: No rashes, No breakdown, - - Chronic skin changes BLLE Musculoskeletal: No Tenderness to Palpation of Joints or Extremities Neurological: Cranial nerves II-XII grossly intact, Neuro grossly intact Psych/Mental Status: Normal Affect, Appropriate Vital Signs Temp Pulse Resp BP Pulse Ox 98.4 F 87 16 123/51 H 100 02/16/19 13:54 02/16/19 13:54 02/16/19 13:54 02/16/19 13:54 02/16/19 13:54 Oxygen Flow Rate (L/min) 2 Oxygen Delivery Method Nasal Cannula Weight: 168 lb 6.931 oz Body Mass Index (BMI) 30.7 Finger Stick Blood Glucose 97 Intake and Output for Last 24 Hours 02/14/19 02/15/19 02/16/19 23:59 23:59 23:59 Intake Total 830 / 830 1415 / 1655 600 / 600 Output Total 1999 / 1999 1350 / 1800 2350 / 2350 Balance -1170 / -1170 65 / -145 -1750 / -1750 Laboratory Tests Past 24 Hrs 02/16/19 02/16/19 05:30 05:30 PT 19.5 H INR 1.7 Sodium 144 Potassium 4.1 Chloride 102 Carbon Dioxide 36.0 H Anion Gap 6 BUN 59 H Creatinine 2.06 H Estim Creat Clear Calc 18.92 Est GFR (MDRD) Af Amer 30 L Est GFR (MDRD) Non-Af 25 L BUN/Creatinine Ratio 28.6 H Glucose 117 H Calcium 8.0 L POC Glucose 02/16/19 02/16/19 02/16/19 11:57 07:48 02:01 POC Glucose 188 H 124 H 144 H 02/15/19 02/15/19 21:10 16:19 POC Glucose 314 H 315 H Medical Necessity - Tobacco Use Smoking Status: Never smoker Assessment/Plan All Active Problems (Last Updated 02/03/19 @ 18:51 by Dejah Singh MD) Hypoglycemia due to insulin (Acute) Chronic diastolic (congestive) heart failure (Acute) 1. Chronic hypoxic respiratory failure secondary to acute on chronic diastolic CHF-patient chronically wears 2 L nasal cannula at bedtime and as needed. Continue supplement oxygen to maintain O2 at or above 90%. Oxygen stable on baseline O2 requirements. Continue BiPAP nightly and as needed. 2. Acute on chronic diastolic CHF-BNP 495. Chest x-ray without acute process. Echocardiogram 01/12/19 with EF 65%, mild to moderate tricuspid valve insufficiency, mild to moderate pulmonic valve insufficiency, RVSP estimated to be 72 mmHg. Strict I&O. Daily weight. Patient was discharged in December on Bumex 2 mg twice daily per nephrology recommendations. However she reports at follow- up with nephrology, her Bumex regimen was reduced to 1 mg twice daily. She reports she has not been doing well on this regimen and feels she was doing better on Lasix. IV Lasix discontinued. Discharge on Bumex 2 mg twice daily. Discussed patient with Dr. Ulloa, nephrology will follow at transitional care unit to continue to monitor renal function and diuretic regimen. 3. Acute on chronic COPD-pulmonary medicine following. DC IV solumedrol. Transition to prednisone 10mg daily indefinitely. Patient unable to tolerate BiPAP and has been refusing to wear. Patient signed with palliative care for further sx management. 4. CAD status post CABG-continue aspirin, Not on statin. 5. Type 2 diabetes mellitus-continue home insulin regimen. 6. Paroxysmal atrial fibrillation, on anticoagulation with Coumadin-continue amiodarone, Coumadin. Trend INR. Patient atrial fibrillation with RVR during admission and home amiodarone regimen and increased to 200 mg twice daily which we will continue for 1 week and then reduce to 200 mg daily. Patient additionally started on digoxin 125 mcg daily which will need to be monitored closely at discharge given chronic kidney disease. 7. Hypertension-previously on losartan which was discontinued due to kidney function. As needed hydralazine for systolic blood pressure greater than 160. 8. Chronic kidney disease stage IV-follows with Dr. Flores. Baseline creatinine 1.9-2.5. Creatinine at baseline. No HERNAN. 9. Status post mitral valve replacement with bioprosthetic valve-stable per echo as noted above. 10. Hypothyroidism-continue Synthroid regimen. 11. Chronic foot diabetic wounds/ulcerations-left heel, left superior foot, and right great toe ulcerations, present on admission. Continue dry dressing daily to left dorsal foot and right plantar surface of the great toe. Mendez wraps bilateral lower extremities. 12. MAGALI-noncompliant with CPAP regimen. Encouraged CPAP use. 13. Dysphagia- ST following. Continue outpatient swallow study as previously scheduled. No indication to complete during admission. DVT prophylaxis- Coumadin. CODE STATUS: CODE STATUS discussed with patient, she does not wish to be intubated if this were to become necessary. DNR CCA. Discharge planning: TCU at discharge pending pre-cert. Patient will follow with palliative care. This patient was seen by JOSE ANGEL Null under the supervision of Dr. Benson.
[2019-02-16] MEDS: Aspirin E.C. 81 MG Tablet PO (21:38)
[2019-02-16 21:50] LABS: Bedside Glucose 413 mg/dL (70-110)
[2019-02-17] VITALS (7 sets, daily range): BP systolic 140–150; BP diastolic 48–51; PULSE 44–56; RESP 16–18; TEMP 36.4–36.6; O2SAT 96–100
[2019-02-17] MEDS: Insulin Lispro 100 UNIT/ML INSULN.PEN SC ×2 (02:09→11:23)
[2019-02-17 02:11] LABS: Bedside Glucose 167 mg/dL (70-110)
[2019-02-17] MEDS: Levothyroxine 88 MCG Tablet PO (05:15)
--- NOTE | 2019-02-17 05:55 | EKG12_ITS ---
Test Reason : AM EKG Blood Pressure : / mmHG Vent. Rate : 046 BPM Atrial Rate : 046 BPM P-R Int : 206 ms QRS Dur : 094 ms QT Int : 456 ms P-R-T Axes : 030 102 191 degrees QTc Int : 399 ms Sinus bradycardia Rightward axis ST & T wave abnormality, consider inferior ischemia Abnormal ECG When compared with ECG of 14-FEB-2019 07:26, Sinus rhythm has replaced Atrial fibrillation Vent. rate has decreased BY 53 BPM T wave inversion now evident in Lateral leads QT has shortened Confirmed by CAPO IZAGUIRRE, LOIDA ([id number]), mapping editor ARMANDO DURAN ([id number]) on 02/19/2019 9:48:45 AM Referred By: Whit Yeager Confirmed By:ELSY SCANLON MD
[2019-02-17 06:10] LABS: International Normalized Ratio 1.9; Prothrombin Time (Protime)PT. 21.3 SECONDS (11.7-14.9)
[2019-02-17 06:19] LABS: Anion Gap 9 (5-15); BUN 63 mg/dL (7-18); BUN/Creat Ratio 29.9 RATIO (10-20); Calcium,Total 8.1 mg/dL (8.5-10.1); Chloride 102 mmol/L (98-107); Creatinine, Serum 2.11 mg/dL (0.55-1.02); EST Glomerular Filtration Rate 24 mL/min (>60); Est Glom Filt Rate - Afr Amer 29 mL/min (>60); Estimated Creatinine Clearance 18.47 ml/min; Glucose 76 mg/dL (74-106); Potassium 3.9 mmol/L (3.5-5.1); Sodium Level 147 mmol/L (136-145)
[2019-02-17] MEDS: Ipratropium/Albuterol Sulfate 3 ML AMPUL.NEB INHALATION ×2 (06:54→13:20)
[2019-02-17 07:10] LABS: Bedside Glucose 306 mg/dL (70-110)
[2019-02-17 07:10] LABS: Bedside Glucose 324 mg/dL (70-110)
[2019-02-17] MEDS: predniSONE 10 MG Tablet PO (07:52)
[2019-02-17] MEDS: Insulin Lispro 100 UNIT/ML INSULN.PEN 8 UNIT SC ×2 (07:52→11:22)
[2019-02-17 08:10] LABS: Bedside Glucose 94 mg/dL (70-110)
--- NOTE | 2019-02-17 08:51 | DS.PCM_ITS ---
Discharge Date and Diagnosis Date of Admission: 02/10/19 Date of Discharge: 02/17/19 - Primary Discharge Diagnosis Active and Suspected Problems (Last Updated 02/03/19 @ 18:51 by Dejah Singh MD) 1. Chronic hypoxic respiratory failure secondary to chronic diastolic CHF and C hronic COPD 2. Acute on chronic diastolic CHF 3. Acute on chronic COPD 4. CAD status post CABG 5. Type 2 diabetes mellitus 6. Paroxysmal atrial fibrillation, on anticoagulation with Coumadin 7. Hypertension 8. Chronic kidney disease stage IV 9. Status post mitral valve replacement with bioprosthetic valve 10. Hypothyroidism 11. Chronic foot diabetic wounds/ulcerations 12. MAGALI 13. Dysphagia - Secondary Discharge Diagnosis Chronic Problems (Last Updated 02/03/19 @ 18:51 by Dejah Singh MD) Asthma (Chronic) Venous insufficiency of both lower extremities (Chronic) Chronic kidney disease (Chronic) Secondary pulmonary arterial hypertension (Chronic) Essential (primary) hypertension (Chronic) Non-rheumatic mitral valve stenosis (Chronic) H/O coronary 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) CABG x 1 : SVG to distal LAD 09/29/2014 Atherosclerosis of coronary artery of [place] heart without angina pectoris (Chronic) CABG x 1 : SVG to distal LAD 09/29/2014 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 Angela Alexis History of mitral valve replacement with bioprosthetic valve (Chronic 09/29/14) 09/29/2014: MVR with 27 mm Med[employer]onic tisue valve per Dr. Angela Alexis Hyperlipidemia (Chronic) Hospital Course and Treatment Imaging Results: Diagnostic Data Chest X-Ray 02/10/19 15:50 IMPRESSION: Prosthetic heart valve and sternotomy. No acute disease. Electronically Signed: Hoang Cummins MD at 16:18 EDT , Service support , Operations: None Procedures: 2-D Echocardiogram Summary of Care Provided: The patient is a 78 year old F admitted 02/10/2019 due to shortness of breath. 1. Chronic hypoxic respiratory failure secondary to chronic diastolic CHF and chronic COPD-patient chronically wears 2 L nasal cannula at bedtime and as needed. Continue supplement oxygen to maintain O2 at or above 90%. Oxygen stable on baseline O2 requirements. Continue BiPAP nightly and as needed. 2. Acute on chronic diastolic CHF-BNP 495. Chest x-ray without acute process. Echocardiogram 01/12/19 with EF 65%, mild to moderate tricuspid valve insufficiency, mild to moderate pulmonic valve insufficiency, RVSP estimated to be 72 mmHg. Bumex 2 mg twice daily. Discussed patient with Dr. Ulloa, nephrology will follow at transitional care unit to continue to monitor renal function and diuretic regimen. 3. Acute on chronic COPD-pulmonary medicine following. DC IV solumedrol. Transition to prednisone 10mg daily indefinitely. Patient unable to tolerate BiPAP and has been refusing to wear. Patient signed with palliative care for further sx management. Follow-up with pulmonary medicine as outpatient as scheduled. 4. CAD status post CABG-continue aspirin, Not on statin. 5. Type 2 diabetes mellitus-continue home insulin regimen. 6. Paroxysmal atrial fibrillation, on anticoagulation with Coumadin-continue amiodarone, Coumadin. Patient atrial fibrillation with RVR during admission and home amiodarone regimen and increased to 200 mg twice daily which we will continue for 1 week and then reduce to 200 mg daily. Patient additionally started on digoxin 125 mcg daily which will need to be monitored closely at discharge given chronic kidney disease. Sinus bradycardia at discharge. 7. Hypertension-previously on losartan which was discontinued due to kidney function. 8. Chronic kidney disease stage IV-follows with Dr. Flores. Baseline creatinine 1.9-2.5. Creatinine at baseline. No HERNAN. 9. Status post mitral valve replacement with bioprosthetic valve-stable per echo as noted above. 10. Hypothyroidism-continue Synthroid regimen. 11. Chronic foot diabetic wounds/ulcerations-left heel, left superior foot, and right great toe ulcerations, present on admission. Continue dry dressing daily to left dorsal foot and right plantar surface of the great toe. Mendez wraps bilateral lower extremities. 12. MAGALI-noncompliant with CPAP regimen. Encouraged CPAP use. 13. Dysphagia-speech therapy to follow at TCU. Patient has upcoming swallow study 02/24/2019. General: Alert, Oriented x3, Cooperative HEENT: Atraumatic, PERRLA, EOMI, Normocephalic Neck: Supple, No JVD, Negative Carotid Bruits Lungs: Diminished, minimal expiratory wheezing Cardiovascular: Sinus bradycardia Abdomen: Bowel Sounds Present, Soft, Non Tender, Non-Distended Extremities: No clubbing, No cyanosis, Capillary Refill Less than 3 Seconds, Edema - Non pitting BLLE Skin: No rashes, No breakdown, - - Chronic skin changes BLLE Musculoskeletal: No Tenderness to Palpation of Joints or Extremities Neurological: Cranial nerves II-XII grossly intact, Neuro grossly intact Psych/Mental Status: Normal Affect, Appropriate Patient seen and examined prior to discharge. Physical assessment as noted above. Patient is stable for discharge with follow up recommendations as noted above. This patient was seen by JOSE ANGEL Null under the supervision of Dr. Benson. - Physical Exam Vital Signs Temp Pulse Resp BP Pulse Ox 97.8 F 48 L 18 140/48 H 96 02/17/19 07:56 02/17/19 07:56 02/17/19 07:56 02/17/19 07:56 02/17/19 07:56 Oxygen Flow Rate (L/min) 1 Oxygen Delivery Method Nasal Cannula Weight: 167 lb 15.876 oz Body Mass Index (BMI) 30.7 Finger Stick Blood Glucose 97 Intake and Output for Last 24 Hours 02/15/19 02/16/19 02/17/19 23:59 23:59 23:59 Intake Total 1415 / 1655 1440 / 1440 120 / 120 Output Total 1350 / 1800 2950 / 2950 550 / 550 Balance 65 / -145 -1510 / -1510 -430 / -430 Laboratory Tests Past 24 Hrs 02/17/19 02/17/19 05:40 05:40 PT 21.3 H INR 1.9 Sodium 147 H Potassium 3.9 Chloride 102 Carbon Dioxide 36.0 H Anion Gap 9 BUN 63 H Creatinine 2.11 H Estim Creat Clear Calc 18.47 Est GFR (MDRD) Af Amer 29 L Est GFR (MDRD) Non-Af 24 L BUN/Creatinine Ratio 29.9 H Glucose 76 Calcium 8.1 L POC Glucose 02/17/19 02/17/19 02/16/19 07:46 02:00 21:41 POC Glucose 94 167 H 413 H 02/16/19 02/16/19 02/16/19 16:54 16:52 11:57 POC Glucose 306 H 324 H 188 H Home Medications: Medications to take at Discharge Albuterol Inhaler [Ventolin Hfa] 2 puff INHALATION Q4H PRN PRN #1 inhaler 10/27/14 Aspirin E.C. [Ecotrin] 81 mg PO QHS 01/07/18 Albuterol Aerosols [Ventolin Aerosols] 3 ml INHALATION BID 06/22/18 Multivit-Min/Iron/Folic/Lutein [Centrum Silver Women Tablet] 1 tab PO DAILY 06/22/18 levothyroxine 88 mcg tablet 88 mcg PO DAILY 30 Days #90 tab 07/27/18 insulin lispro (U-100) 100 unit/mL subcutaneous pen See Protocol SC .with meals ml 09/29/18 Lecithin, Soy [Lecithin] 1,200 mg PO DAILY 11/23/18 Warfarin Sodium 3 mg PO SUWETHFRSA 11/23/18 Warfarin Sodium [Coumadin] 4 mg PO MOTU 11/23/18 Calcitriol [Rocaltrol] 0.25 mcg PO MOWEFR cap 11/25/18 Insulin Glargine [Lantus SoloStar Pen] 35 units SUBCUT DAILY 01/10/19 Fluticasone/Umeclidin/Vilanter [Trelegy Ellipta 100-62.5-25] 1 puff INHALATION DAILY 02/03/19 Guaifenesin [Mucinex] 1,200 mg PO DAILY 02/03/19 Insulin Lispro [Humalog KwikPen] 8 unit SUBCUT TIDAC 02/03/19 ALPRAZolam [Xanax] 0.125 mg PO BID tab 02/16/19 Amiodarone HCl [Cordarone] 200 mg PO BID tab 02/16/19 Bumetanide [Bumex] 2 mg PO BIDLX tab 02/16/19 Digoxin [Lanoxin] 125 mcg PO DAILY tab 02/16/19 Prednisone 10 mg PO DAILY #1 tab 02/16/19 Following Prescrptions Were Given to Patient: Prednisone 10 mg PO DAILY #1 tab Primary Care Physician: Jovana Moulton MD [Primary Care Provider] - Please follow up with your Primary Care Physician in: 1 Week Please Follow Up With: Lety Ulloa DO When: 1 week, follow while on TCU Please Follow Up With: Deonte Suarez DO When: Palliative care to follow at discharge. Please Follow Up With: Danna Blas PA When: As scheduled 03/09/19 Please Follow Up With: Vicky Arzate NP-C When: As scheduled, 04/19/19 [facility] Minutes spent on discharge:: 35 Patient Condition:: Stable Medical Necessity - Tobacco Use Smoking Status: Never smoker Meaningful Use Info Meaningful Use Diagnoses (Choose all that apply): CHF - CHF MENDEZ/ARB ordered at discharge?: No Reason MENDEZ/ARB not ordered?: Worsening renal dysfunctn Documented LVEF (%): 65
[2019-02-17] MEDS: Amiodarone 200 MG Tablet PO (09:49)
[2019-02-17] MEDS: Glucerna Shake 120 ML LIQUID PO (09:50)
[2019-02-17] MEDS: guaiFENesin 1,200 MG Tablet 1200 MG PO (09:51)
[2019-02-17] MEDS: ALPRAZolam 0.25 MG Tablet 0.125 MG PO (10:10)
[2019-02-17] MEDS: Bumetanide 2 MG Tablet PO (10:16)
[2019-02-17 11:31] LABS: Bedside Glucose 178 mg/dL (70-110)
--- NOTE | 2019-02-17 13:37 | CASEMGMT ---
KP spoke with Sonal in Palliative Care and patient did sign up. SW let her know patient is going to TCU today. KP will ask the SW in TCU to notify them when patient is being discharged from TCU. KP e-mailed TCU SW this information. Beata UNDERWOOD MSW
--- NOTE | 2019-02-17 13:47 | NURSING ---
report called to TCU RNJackie.
== END 2019-02-17 13:57 | disposition skilled nursing facility (03) | DRG 291 ==
LOC: ED 15:59 → PCU 20:54
PROVIDERS: Hospitalist; Nurse Practitioner Family; Admitting Provider Student in an Organized Health Care Education/Training Program; Emergency Provider Emergency Medicine; Family Provider Internal Medicine; PCP Internal Medicine; Referring Provider Student in an Organized Health Care Education/Training Program; Visit Provider Internal Medicine
DX: I13.0 Hypertensive heart and chronic kidney disease with heart failure and stage 1 through stage 4 chronic kidney disease, or unspecified chronic kidney disease (principal); I50.33 Acute on chronic diastolic (congestive) heart failure; N18.4 Chronic kidney disease, stage 4 (severe); L97.429 Non-pressure chronic ulcer of left heel and midfoot with unspecified severity; J96.11 Chronic respiratory failure with hypoxia; E11.22 Type 2 diabetes mellitus with diabetic chronic kidney disease; E03.9 Hypothyroidism, unspecified; I25.10 Atherosclerotic heart disease of native coronary artery without angina pectoris; I48.0 Paroxysmal atrial fibrillation; E11.621 Type 2 diabetes mellitus with foot ulcer; L97.519 Non-pressure chronic ulcer of other part of right foot with unspecified severity; L97.529 Non-pressure chronic ulcer of other part of left foot with unspecified severity; G47.33 Obstructive sleep apnea (adult) (pediatric); J44.9 Chronic obstructive pulmonary disease, unspecified; R13.10 Dysphagia, unspecified; E78.5 Hyperlipidemia, unspecified; I87.2 Venous insufficiency (chronic) (peripheral); I27.21 Secondary pulmonary arterial hypertension; Z95.1 Presence of aortocoronary bypass graft; Z91.19 Patient's noncompliance with other medical treatment and regimen; Z79.4 Long term (current) use of insulin; Z79.01 Long term (current) use of anticoagulants; Z95.3 Presence of xenogenic heart valve; Z99.81 Dependence on supplemental oxygen
CPT/HCPCS: 36415; 71045; 80048; 82962; 83605; 83880; 84484; 85025; 85027; 85610; 92526; 92610; 93005; 94002; 94003; 94640; 97110; 97116; 97162; 97165; 97530; 97535; 97802; 99285; A4216; J1940

== ENCOUNTER 2019-02-17 14:30 | Inpatient (IN) | payer MEDICARE, SELFPAY ==
[2019-02-10 17:51] VITALS: BMI 30.7
[2019-02-17 14:30] VITALS: BP 153/60; PULSE 53; RESP 16; TEMP 36.3; O2SAT 94
[2019-02-17 15:31] VITALS: BMI 29.8
[2019-02-17 15:34] VITALS: BP 198/76; PULSE 50; RESP 18; TEMP 36.8
[2019-02-17 15:40] VITALS: BMI 29.8
[2019-02-17 16:52] VITALS: BP 177/69; PULSE 48
[2019-02-17] MEDS: Insulin Lispro 100 UNIT/ML INSULN.PEN 8 UNIT SC (17:49)
[2019-02-17] MEDS: Amiodarone 200 MG Tablet PO (17:51)
[2019-02-17 17:55] LABS: Bedside Glucose 132 mg/dL (70-110)
[2019-02-17] MEDS: ALPRAZolam 0.25 MG Tablet 0.125 MG PO (18:09)
[2019-02-17] MEDS: Fluticasone/Salmeterol 232-14 Inhaler 1 PUFF IH (18:12)
--- NOTE | 2019-02-17 18:18 | NURSING ---
Does not appear to be in any respiratory distress. Wheezing noted upon clinical assessment earlier. Takes one puff of Albuterol inhaler but didnt feel like she needed. Will get Albuterol Aerosol scheduled instead. remains on O2 at 2l/min per nasal cannula. Dr Farias in to see resident. Aware of elevated BP and low pulse.
[2019-02-17 18:53] VITALS: PULSE 53; RESP 20
[2019-02-17] MEDS: Albuterol 2.5 MG/3 ML VIAL.NEB. INHALATION (18:53)
[2019-02-17] MEDS: Aspirin E.C. 81 MG Tablet PO (21:22)
--- NOTE | 2019-02-17 21:22 | PCM.HP.STD ---
Problem List (1) Debility Status: Acute (2) Shortness of breath Status: Acute (3) Acute on chronic diastolic heart failure Status: Acute (4) COPD exacerbation Status: Acute (5) Stage 4 chronic kidney disease Status: Chronic (6) Atrial fibrillation with rapid ventricular response Status: Chronic (7) Hypertension Status: Chronic (8) Coronary artery disease Status: Chronic (9) Pulmonary hypertension Status: Chronic (10) Diabetes mellitus Status: Chronic (11) Hypothyroidism Status: Chronic (12) Obstructive sleep apnea Status: Chronic (13) Hyperlipidemia Status: Chronic Qualifiers: (14) Diabetic foot ulcer Status: Chronic History of Present Illness Date of Admission: 02/17/19 Chief Complaint: Here for rehabilitation, strengthening, prior to discharge home with spouse. The patient is a 78 year old Female with below past medical history presented to [facility] Emergency Department 02/10/2019 with shortness of breath. 02/10/2019 Chest X-ray prosthetic heart valve, sternotomy. Shortness of breath through the day, feeling worse and worse. Clear sputum, few pound weight gain. EKG normal sinus rhythm, heart rate 60, nonspecific ST changes. WBC 11.8, Hemoglobin 11, Hematocrit 35, Platelet 161. BMP okay, BUN 41, Cr 2.12, Troponin < 0.15, BNP 495. INR 3.0. BiPAP, Duoneb aerosol, albuterol aerosol, Lasix 80MG IV, Solu-Medrol 60MG IV, Ativan 1GM IV. 02/10/2019 Admit to Hospital. Lasix 80MG IV BID, Fluid restriction 1500ML per day for acute on chronic diastolic heart failure. 02/11/2019 Dr. Smiley recommended consideration of low dose antipsychotic for anxiety. Consider low dose prednisone therapy. BiPAP as needed, consider Trilogy. Continue oxygen to maintain saturations. Bumex 2MG BID for acute on chronic diastolic heart failure. Dr. Ulloa monitoring renal function. Prednisone 10MG daily indefinitely for COPD. Losartan stopped due to worsening kidney function. Digoxin dose adjusted due to kidney function. CPAP intolerable. 02/17/2019 Admit to TCU with debility, here for rehabilitation, strengthening, prior to discharge home with spouse. 02/24/2019 Modified barium swallow for dysphagia. Past Medical History Past Medical History (Chronic Problems): Chronic Problems (Last Updated 02/17/19 @ 08:52 by JOSE ANGEL Null) Stage 4 chronic kidney disease (Chronic) Atrial fibrillation with rapid ventricular response (Chronic) Hypertension (Chronic) Coronary artery disease (Chronic) Pulmonary hypertension (Chronic) Diabetes mellitus (Chronic) Hypothyroidism (Chronic) Obstructive sleep apnea (Chronic) Diabetic foot ulcer (Chronic) Asthma (Chronic) Venous insufficiency of both lower extremities (Chronic) Chronic kidney disease (Chronic) Secondary pulmonary arterial hypertension (Chronic) Essential (primary) hypertension (Chronic) Non-rheumatic mitral valve stenosis (Chronic) H/O coronary 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) CABG x 1 : SVG to distal LAD 09/29/2014 Atherosclerosis of coronary artery of [place] heart without angina pectoris (Chronic) CABG x 1 : SVG to distal LAD 09/29/2014 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 Angela Alexis History of mitral valve replacement with bioprosthetic valve (Chronic 09/29/14) 09/29/2014: MVR with 27 mm Medtronic tisue valve per Dr. Angela Alexis Hyperlipidemia (Chronic) Medical History: Medical History (Last Updated 02/17/19 @ 08:52 by JOSE ANGEL Null) Secondary pulmonary arterial hypertension (Chronic) I27.21 Chronic diastolic (congestive) heart failure (Acute) I50.32 Essential (primary) hypertension (Chronic) I10 Non-rheumatic mitral valve stenosis (Chronic) I34.2 Atherosclerosis of coronary artery of [place] heart without angina pectoris (Chronic) I25.10 CABG x 1 : SVG to distal LAD 09/29/2014 Chronic hypoxemic respiratory failure (Chronic) J96.11 Paroxysmal atrial fibrillation (Chronic) I48.0 Hyperlipidemia (Chronic) E78.5 Dyspnea on exertion R06.09 Edema R60.9 Pulmonary hypertension, moderate to severe I27.20 Shortness of breath R06.02 Anemia D64.9 Chronic renal failure N18.9 Depression F32.9 Peripheral vascular disease I73.9 Type 2 diabetes mellitus E11.9 Subdural bleeding (Inactive) I62.00 Allergies dronedarone [From Multaq] Allergy (Severe, Verified 02/10/19 15:50) difficulty breathing dronedarone HCl [From Multaq] Allergy (Verified 02/10/19 15:50) Other unable to breath levofloxacin [From Levaquin] Adverse Reaction (Severe, Verified 02/10/19 15:50) hallucinations, hot flashes quinapril [From Accupril] Adverse Reaction (Severe, Verified 02/10/19 15:50) near syncope cortisone Adverse Reaction (Intermediate, Verified 02/10/19 15:50) swelling hydralazine Adverse Reaction (Intermediate, Verified 02/10/19 15:50) weakness Beta-Blockers (Beta-Adrenergic Bloc Adverse Reaction (Verified 02/10/19 15:50) Other WHEEZING, shaking, passes out CARDURA Allergy (Uncoded 02/10/19 15:50) Other PT NOT SURE- POSSIBLE SWELLING NORVASC Allergy (Uncoded 02/10/19 15:50) Swelling SCALLOPS Allergy (Uncoded 02/10/19 15:50) Swelling SULFA Allergy (Uncoded 02/10/19 15:50) Other SPOTS IN MOUTH/SORE MOUTH ATIVAN Adverse Reaction (Uncoded 02/10/19 15:50) Other HALLUCINATIONS METATOPOLOL TARTATE Adverse Reaction (Uncoded 02/10/19 15:50) Other Home Medications: Ambulatory Orders Medication Instructions Recorded Albuterol Inhaler [Ventolin Hfa] 2 puff INHALATION Q4H PRN PRN #1 10/27/14 inhaler Aspirin E.C. [Ecotrin] 81 mg PO QHS 01/07/18 Albuterol Aerosols [Ventolin 3 ml INHALATION BID 06/22/18 Aerosols] Multivit-Min/Iron/Folic/Lutein 1 tab PO DAILY 06/22/18 [Centrum Silver Women Tablet] levothyroxine 88 mcg tablet 88 mcg PO DAILY 30 Days #90 tab 07/27/18 insulin lispro (U-100) 100 unit/mL See Protocol SC .with meals ml 09/29/18 subcutaneous pen Lecithin, Soy [Lecithin] 1,200 mg PO DAILY 11/23/18 Warfarin Sodium 3 mg PO SUWETHFRSA 11/23/18 Warfarin Sodium [Coumadin] 4 mg PO MOTU 11/23/18 Insulin Glargine [Lantus SoloStar 35 units SUBCUT DAILY 01/10/19 Pen] Fluticasone/Umeclidin/Vilanter 1 puff INHALATION DAILY 02/03/19 [Treleabdulaziz Ellipta 100-62.5-25] Guaifenesin [Mucinex] 1,200 mg PO DAILY 02/03/19 Insulin Lispro [Humalog KwikPen] 8 unit SUBCUT TIDAC 02/03/19 ALPRAZolam [Xanax] 0.125 mg PO BID 02/17/19 Amiodarone HCl [Cordarone] 200 mg PO BID 02/17/19 Bumetanide [Bumex] 2 mg PO BIDLX 02/17/19 Calcitriol [Rocaltrol] 0.25 mcg PO MOWEFR 02/17/19 Prednisone 10 mg PO DAILY 02/17/19 Surgical History: Surgical History (Last Reviewed 01/25/19 @ 11:26 by Ely Serrato) H/O coronary artery bypass surgery (Chronic) Onset Date: 09/29/14 Z95.1 CABG x 1 : SVG to distal LAD 09/29/2014 History of maze procedure (Chronic) Onset Date: 09/29/14 Z98.890 09/29/2014 atricure pulmonary vein isolation MAZE with ligation of left atrial appendage per Dr. Angela Alexis History of mitral valve replacement with bioprosthetic valve (Chronic) Onset Date: 09/29/14 Z95.3 09/29/2014: MVR with 27 mm Medtronic tisue valve per Dr. 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 MANAGER history Lives: Spouse/ Significant Other Smoking Status: Never smoker Tobacco Use: Non-smoker Alcohol: None Drugs: None - *Family History Maternal Family History: Family History (Last Reviewed 01/25/19 @ 11:26 by Ely Serrato) Father CAD (coronary artery disease) Hypertension Myocardial infarction Sudden cardiac Hyperlipidemia Mother Breast cancer Brother Cancer Sister Breast cancer Hyperlipidemia Sister Hyperlipidemia History Items: Cancer Paternal Family History: Family History (Last Reviewed 01/25/19 @ 11:26 by Ely Serrato) Father CAD (coronary artery disease) Hypertension Myocardial infarction Sudden cardiac Hyperlipidemia Mother Breast cancer Brother Cancer Sister Breast cancer Hyperlipidemia Sister Hyperlipidemia History Items: Heart Disease, Stroke Sibling Family History: Family History (Last Reviewed 01/25/19 @ 11:26 by Ely Serrato) Father CAD (coronary artery disease) Hypertension Myocardial infarction Sudden cardiac Hyperlipidemia Mother Breast cancer Brother Cancer Sister Breast cancer Hyperlipidemia Sister Hyperlipidemia History Items: Cancer - in brother and sister Review of Systems Constitutional: Denies: Chills, Fever, Weight Change HEENT: Denies: Head Aches, Sinus Congestion, Sinus Drainage Cardiovascular: Denies: Chest Pain, Palpitations Respiratory: Denies: Cough, Shortness of breath at rest, Sputum production Gastrointestinal: Denies: Abdominal Pain, Nausea, Vomiting Genitourinary: Denies: Dysuria Musculoskeletal: Denies: Joint Pain, Joint Tenderness Skin: Denies: Rash, Wounds Neurological: Denies: Numbness, Tingling, Focal weakness Psychiatric: Denies: Anxiety, Depression, Homicidal Ideations, Suicidal Ideations Hematologic/ Lymphatic: Denies: Easy Bruising, Easy Bleeding VTE Information - Inpt Only VTE Present on Admission: No VTE Mechan Device Prophylaxis: Knee High ARMANDO Hose VTE Pharm Prophylaxis ordered?: No Reason prophylaxis not ordered:: Treatment Not Indicated Patient Problems: Active and Suspected Problems (Last Updated 02/17/19 @ 08:52 by Lisha Meneses NP-C) Debility (Acute) Shortness of breath (Acute) Acute on chronic diastolic heart failure (Acute) COPD exacerbation (Acute) - Physical Exam General: Alert, Oriented x3, Cooperative HEENT: Atraumatic, PERRLA, EOMI, Normocephalic Neck: Supple, No JVD, Negative Carotid Bruits Lungs: Clear to auscultation, Normal air movement Cardiovascular: Regular rate, No murmurs Abdomen: Bowel Sounds Present, Soft, Non Tender Extremities: No edema, Capillary Refill Less than 3 Seconds, - - Bilateral foot ulcers dressed. Skin: No rashes, No breakdown Musculoskeletal: No Tenderness to Palpation of Joints or Extremities Neurological: Cranial nerves II-XII grossly intact Psych/Mental Status: Normal Affect, Appropriate Vital Signs Temp Pulse Resp BP Pulse Ox 98.2 F 53 L 20 H 177/69 H 94 02/17/19 15:34 02/17/19 18:53 02/17/19 18:53 02/17/19 16:52 02/17/19 14:30 Oxygen Flow Rate (L/min) 2 Oxygen Delivery Method Nasal Cannula Weight: 76.402 kg Body Mass Index (BMI) 29.8 Finger Stick Blood Glucose 97 POC Glucose 02/17/19 17:47 POC Glucose 132 H Assessment/Plan All Active Problems (Last Updated 02/17/19 @ 08:52 by Lisha Meneses NP-C) Debility (Acute) Shortness of breath (Acute) Acute on chronic diastolic heart failure (Acute) COPD exacerbation (Acute) Hypoglycemia due to insulin (Acute) Chronic diastolic (congestive) heart failure (Acute) 78 year old female with below past medical history hospitalized for shortness of breath secondary to acute on chronic diastolic heart failure, COPD exacerbation, complicated by atrial fibrillation with rapid ventricular response, stage 4 chronic kidney disease, obstructive sleep apnea (BiPAP intolerable), admitted to TCU with debility, here for rehabilitation, strengthening, prior to discharge home with spouse. Debility - PT/OT. Pain - Tylenol 1000MG Q6H PRN mild pain. Bowel - Miralax 17GM daily, Senna/colace 1 tablet BID, Dulcolax 10MG CT daily PRN. Pneumonia vaccination - Administer Prevnar 13 and/or Pneumovax 23 as necessary. DVT prophylaxis - Not necessary, already on warfarin. COPD - Albuterol 2.5MG nebulized BID, Albuterol MDI 2 puffs Q4H PRN, Advair inhaler 1 puff Q12H, Incruse 1 puff daily, Prednisone 10MG daily. Anxiety - Xanax 0.125MG BID, resident's shortness of breath is anxiety dependent, risk of worsening shortness of breath outweigh benefits of resident not being on benzodiazepine. Atrial Fibrillation - Amiodarone 200MG BID thru 02/24/2019, then 200MG daily, Warfarin 3MG 5days per week, 4MG 2 days per week, monitor INR> Coronary Artery Disease - Aspirin 81MG QHS. Acute on chronic diastolic heart failure - Bumex 2MG BID. Hyperparathyroidism - Rocaltrol 0.25MCG QMWF. Skin irritation - Eucerin BID. Congestion - Mucinex 1200MG daily. Diabetes Mellitus II - Lantus 35 units daily, Humalog 8 units TIDAC. Hypothyroidism - Levothyroxine 88MCG daily. Nutrition - MVI daily. Hypertension - Not well controlled, resident seeing Dr. Ulloa tomorrow, will defer to Dr. Ulloa for improved blood pressure control, currently not on beta norma, ARB, of digoxin due to stage 4 CKD. Stage 4 CKD - Dr. Ulloa 02/18/2019. Dysphagia - [facility] [place] 02/24/2019.
[2019-02-17 21:35] LABS: Bedside Glucose 244 mg/dL (70-110)
[2019-02-18 02:11] LABS: Bedside Glucose 181 mg/dL (70-110)
[2019-02-18] MEDS: ALPRAZolam 0.25 MG Tablet 0.125 MG PO ×2 (05:59→16:59)
[2019-02-18] MEDS: Bumetanide 2 MG Tablet PO ×2 (06:00→13:26)
[2019-02-18] MEDS: guaiFENesin 1,200 MG Tablet 1200 MG PO (06:00)
[2019-02-18] MEDS: Levothyroxine 88 MCG Tablet PO (06:02)
[2019-02-18] MEDS: Umeclidinium Bromide Inhaler 1 PUFF IH (06:05)
[2019-02-18] MEDS: Fluticasone/Salmeterol 232-14 Inhaler 1 PUFF IH ×2 (06:05→17:00)
[2019-02-18 06:18] VITALS: BP 122/50; PULSE 46
[2019-02-18 06:44] LABS: International Normalized Ratio 1.9
[2019-02-18 06:45] LABS: Anion Gap 5 (5-15); BUN 69 mg/dL (7-18); BUN/Creat Ratio 32.4 RATIO (10-20); Calcium,Total 8.3 mg/dL (8.5-10.1); Chloride 100 mmol/L (98-107); Creatinine, Serum 2.13 mg/dL (0.55-1.02); EST Glomerular Filtration Rate 24 mL/min (>60); Est Glom Filt Rate - Afr Amer 29 mL/min (>60); Glucose 153 mg/dL (74-106); Potassium 4.1 mmol/L (3.5-5.1); Sodium Level 138 mmol/L (136-145)
[2019-02-18 06:47] LABS: Absolute Lymphocyte Count 1.09 X10^3/uL (0.83-4.51); Basophil# 0.05 X10^3/uL; Basophil% 0.5 % (0-1); Hematocrit 33.7 % (37-47); Hemoglobin 10.4 g/dL (12.0-15.0); Lymphocyte # 1.09 X10^3/ul (4.0); Lymphocyte % 11.6 % (19-41); Mean Corp Hgb Conc 30.9 g/dL (32-36); Mean Corpuscular Hgb 25.9 pg (27.0-32.0); Mean Platelet Vol. 11.2 fl (6.2-12.0); Monocyte# 0.65 X10^3/uL; Monocyte% 6.9 % (0-10); NRBC Flagged by Analyzer 0 % (0-5); Neutrophil # 6.01 X10^3/uL (2.7-7.7); Neutrophil % 64.4 % (47-70); Platelet Count 143 K/mm3 (150-450); RBC Distribution Width CV 16.4 % (11.6-14.6); RBC Distribution Width SD 50.7 fl (35.1-43.9); Red Blood Count 4.01 M/mm3 (4.2-5.4); White Blood Count 9.4 K/mm3 (4.4-11.0)
[2019-02-18 07:11] LABS: Bedside Glucose 150 mg/dL (70-110)
[2019-02-18 07:38] VITALS: PULSE 43; RESP 18; O2SAT 97
[2019-02-18] MEDS: Albuterol 2.5 MG/3 ML VIAL.NEB. INHALATION (07:38)
[2019-02-18] MEDS: Insulin Lispro 100 UNIT/ML INSULN.PEN 8 UNIT SC ×3 (08:05→17:42)
[2019-02-18] MEDS: Multivitamins,Ther W-Minerals Tablet 1 TABLET PO (08:05)
[2019-02-18] MEDS: predniSONE 10 MG Tablet PO (08:05)
[2019-02-18 11:45] LABS: Bedside Glucose 198 mg/dL (70-110)
[2019-02-18] MEDS: Tuberculin,Purif.prot.deriv. 50 TU/ML Vial 5 ML ID (11:59)
[2019-02-18 12:20] LABS: PTHIN 200.1 pg/mL (18.4-80.1)
[2019-02-18 16:00] VITALS: BP 168/77; PULSE 59; RESP 18; TEMP 36.4; O2SAT 93
[2019-02-18 16:50] LABS: Mucous, Urine 0 SEEN /hpf (<or=2+); Red Blood Cells-Urine 0 SEEN /hpf (0-5)
[2019-02-18] MEDS: Amiodarone 200 MG Tablet PO (16:59)
[2019-02-18] MEDS: Senna/Docusate Sodium 1 Tablet PO (16:59)
[2019-02-18 17:06] LABS: Bedside Glucose 262 mg/dL (70-110)
[2019-02-18 17:34] LABS: Color, Urine Yellow (Yellow); Glucose, Dipstick Normal (Normal); Ketone-Dipstick Negative (Negative); Leukocyte Esterase-Dipstick Negative /ul (Negative); Nitrite-Dipstick Negative (Negative); Occult Blood-Urine Negative /ul (Negative); Protein-Dipstick Negative (Negative); Specific Gravity, Urine 1.015 (1.002-1.030); Urine Bilirubin Dipstick Negative (Negative); Urine Clarity Clear (Clear); Urine Urobilinogen Normal (Normal)
[2019-02-18 17:44] LABS: Bacteria 2+ /hpf (None Seen); Squamous Epithelial Cells - UA 0-5 SEEN /hpf (5-10); White Blood Cells 0-5 SEEN /hpf (0-5)
[2019-02-18] MEDS: Aspirin E.C. 81 MG Tablet PO (20:18)
[2019-02-18 21:26] LABS: Bedside Glucose 368 mg/dL (70-110)
[2019-02-19 02:31] LABS: Bedside Glucose 192 mg/dL (70-110)
[2019-02-19] MEDS: Fluticasone/Salmeterol 232-14 Inhaler 1 PUFF IH ×2 (06:37→16:17)
[2019-02-19] MEDS: Bumetanide 0.5 MG Tablet 1 MG PO ×2 (06:37→13:55)
[2019-02-19] MEDS: Umeclidinium Bromide Inhaler 1 PUFF IH (06:38)
[2019-02-19] MEDS: guaiFENesin 1,200 MG Tablet 1200 MG PO (06:39)
[2019-02-19] MEDS: Calcitriol 0.25 MCG Capsule PO (06:40)
[2019-02-19] MEDS: Levothyroxine 88 MCG Tablet PO (06:42)
[2019-02-19 06:45] VITALS: BP 141/51; PULSE 46
[2019-02-19 06:51] LABS: Bedside Glucose 169 mg/dL (70-110)
[2019-02-19 07:00] VITALS: O2SAT 96
[2019-02-19] MEDS: predniSONE 10 MG Tablet PO (09:06)
[2019-02-19] MEDS: Insulin Lispro 100 UNIT/ML INSULN.PEN 8 UNIT SC ×3 (09:06→17:54)
[2019-02-19] MEDS: Multivitamins,Ther W-Minerals Tablet 1 TABLET PO (09:06)
[2019-02-19] MEDS: ALPRAZolam 0.25 MG Tablet 0.125 MG PO ×2 (09:09→20:26)
[2019-02-19 11:25] LABS: Bedside Glucose 179 mg/dL (70-110)
--- NOTE | 2019-02-19 12:50 | SP.MBSS_ITS ---
PRIMARY / SECONDARY DIAGNOSIS: dysphagia (R13.10) REFERRING PHYSICIAN: Dr. Jovana Moulton MD. CURRENT DIET: regular / soft textures, thin liquids DENTITION: upper / lower dentures; ill-fitting lower MENTAL STATUS: WFL RESPIRATORY STATUS: O2 via room air (was on 2L/min prior to admission) REASON FOR REFERRAL: The Patient is a 78 year old female referred for a modified barium swallow (MBS) study to objectively assess the Patients oropharyngeal swallow function under fluoroscopy secondary to report globus sensation with solid ingestion with increasing intensity and what sounds like the development of phagophobia (fear of swallowing) due to the intensity of events, with episodes occasionally leading to self-expectoration of bolus; her symptoms appear to be somewhat associated with increased xerostomia in addition to pulmonary exacerbations; furthermore reports occasional coughing with thin liquids with episodes of increased xerostomia, with coughing episodes occasionally leading to sternutation (sneezing). She reports these symptoms have not significantly changed at baseline, though do occur with increased frequency with concomitant medical complications. Appears acutely aware of dysphagia symptomology. 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 PREVIOUS MODIFIED BARIUM SWALLOW STUDY: None. ADDITIONAL OBJECTIVE ASSESSMENT RESULTS: 02/10/2019 chest x-ray revealed a prosthetic heart valve and sternotomy; no acute disease. 10/07/2018 pulmonary function test demonstrate the presence of a reversible moderate mixed ventilatory defect with a symmetric reduction in diffusing capacity; appears to have been worsening in the patient's pulmonary function study since March 2016. 06/29/2017 MRI revealed involutional changes of the brain; no MR evidence for acute infarct. 05/17/2014 MRI revealed a small acute hemorrhagic infarction in the left occipital lobe; mild involutional/chronic changes; no intracranial mass, hydrocephalus, midline shift or any significant mass effect. ASSESSMENT PARAMETERS: The Patient participated in a Modified Barium Swallow (MBS) study on 02/19/2019. Dr. Loera was the radiologist present for this evaluation. This study was recorded in the lateral view and images were sent to PACs for storage. Scoring was completed through each trial using the 8-point Penetration-Aspiration Scale (PAS), and summarized via the Modified Barium Swallow Impairment Profile (MBSImP) and the Bolus Residue Scale (BRS), with severity scoring through the Dysphagia Severity Rating Scale (DSRS) and the Swallowing Performance Scale (PSP), and recommended diet textures through the International Dysphagia Diet Standardisation Initiative (IDDSI). RESULTS OF THE EVALUATION: The Patient presents with mild oropharyngeal dysphagia (DSRS: 2; SPS: 3) with brief transient penetration of thin liquids likely attributed to a combination of chronic obstructive pulmonary disease, phagophobia, and secondary presbyphagia. OBJECTIVE ASSESSMENT OF SWALLOW FUNCTION (QUANTITATIVE ? PER TRIAL): PENETRATION / ASPIRATION SCALE (CARIAS): 1 = does not enter airway 2 = enters airway/above vocal folds/ejected 3 = enters airway/above vocal folds/not ejected 4 = enters airway/contacts vocal folds/ejected 5 = enters airway/contacts vocal folds/not ejected 6 = enters airway/below vocal folds/ejected 7 = enters airway/below vocal folds/not ejected despite effort 8 = enters airway/below vocal folds/no effort PENETRATION / ASPIRATION SCALE (SCORE): Thin liquid - 5 mL tsp.: 1 Thin liquids via cup (single sip): 1 Thin liquids via cup (single sip): 2 Thin liquids via cup (single sip): 1 Thin liquids via cup (sequential swallows): 2 Thin liquids via straw (chin tuck): 1 Thin liquids via straw (chin tuck): 1 Thin liquids via straw (chin tuck): 1 Pudding via spoon: 1 Regular textured cookie: NA* Thin liquids via straw ? chaser (chin tuck): 1 Thin liquids via straw ? chaser (chin tuck): 1 Thin liquids via straw (chin tuck): 1 * required multiple thin liquid chasers OBJECTIVE ASSESSMENT OF SWALLOW FUNCTION (QUANTITATIVE ? AGGREGATE): MODIFIED BARIUM SWALLOW IMPAIRMENT PROFILE (MBSImP) LABIAL SEAL: 0 (of 4) no labial escape TONGUE CONTROL: 1 (of 3) lateral buccal cavity / floor of mouth BOLUS PREPARATION / MASTICATION: 1 (of 3) slow prolonged; complete recollection BOLUS TRANSPORT / LINGUAL MOTION: 2 (of 4) slowed motion ORAL RESIDUE: 2 (of 4) residue collection on oral structures INITIATION OF PHARYNGEAL SWALLOW: 2 (of 4) posterior surface of epiglottis SOFT PALATE ELEVATION: 1 (of 4) trace column between soft palate & pharyngeal wall LARYNGEAL ELEVATION: 1 (of 3) partial superior movement / approximation ANTERIOR HYOID EXCURSION: 0 (of 2) complete movement EPIGLOTTIC MOVEMENT: 0 (of 2) complete inversion LARYNGEAL VESTIBULE CLOSURE: 0 (of 2) complete closure PHARYNGEAL STRIPPING WAVE: 1 (of 2) present / diminished PE SEGMENT OPENIN (of 3) complete distension / duration; no obstruction TONGUE BASE RETRACTION: 2 (of 4) narrow column of contrast PHARYNGEAL RESIDUE: 2 (of 4) collection of residue ESOPHAGEAL BOLUS CLEARANCE: could not view BOLUS RESIDUE SCALE (BRS): 4 (of 6) residue in valleculae and piriform sinus DYSPHAGIA SEVERITY RATING SCALE (DSRS): 2 (mild) SWALLOWING PERFORMANCE SCALE (SPS): 3 (mild) OBJECTIVE ASSESSMENT OF SWALLOW FUNCTION (QUALITATIVE): ORAL PREPARATORY PHASE: mild (albeit effective) mastication inefficiency with prolonged mastication; sufficient anterior oral containment during presentation / manipulation; preserved management of breathing / bolus formation without disrupted E ? S ? E pattern. ORAL TRANSITIONAL PHASE: sufficient albeit occasionally slowed bolus transportation with more viscous textures; noted fragmented swallowing (piecemeal deglutition) across all viscosities; overall sufficient oral clearance; sufficient oral containment across textures; PHARYNGEAL PHASE: very mild pharyngeal phase dyssynchrony without significant effect under fluoroscopy (somewhat improved with execution of the chin tuck posture); mild reduction in hyolaryngeal excursion with sufficient / consistent laryngeal vestibule pressure generated to expel penetrated material; mild pharyngeal dysmotility with consolidation within the vallecula and pyriforms most significantly with thicker viscosities; mild velopharyngeal insufficiency without nasoregurgitation. ESOPHAGEAL PHASE: no obvious esophageal phase abnormalities observed. RESPONSE TO STRATEGIES: all deficits managed successfully with reduction in bolus rate / volume adjustments, use of a liquid wash / liquids to assist with bolus breakdown and transportation, and execution of chin tuck posture, INTERVENTION RECOMMENDATIONS AND CONSIDERATIONS: The Patient may benefit from continued skilled speech-language intervention targeting diet texture management and training / implementation of recommended compensatory strategies; and Patient / family education regarding dysphagia associated with chronic obstructive pulmonary disease (COPD). POST ASSESSMENT EDUCATION: Results and recommendations were discussed with the Patient immediately following MBS completion, with the Patient verbalizing understanding and agreement with all recommendations and education provided. DIET TEXTURE RECOMMENDATIONS: Will recommend a regular ? soft textured (IDDSI: 6), thin liquid diet (IDDSI: 0) diet RECOMMENDED COMPENSATORY STRATEGIES: Consider cutting tougher textures into bite sized pieces, chin tuck, reduced bolus volume / rate of ingestion, liquid chaser at reasonable intervals, seated upright at 90 degrees during PO intake, remain upright for 30-60 minutes post meal (GERD precaution), medications one at a time with a liquid chaser / with purees as desired. Jayme Lopez M.A., CCC-EDUCATIONAL INSTITUTION PRESIDENT MBSImP Certified, LSVT Certified [facility] Speech-Language Pathology Department [email or web address]
--- NOTE | 2019-02-19 13:00 | RAD_ITS ---
STUDY: SWALLOWING STUDY REASON FOR EXAM: Female, 78 years old. Dysphagia TECHNIQUE: The examination was performed with Speech Pathology in attendance. Under fluoroscopic observation, the patient ingested thin barium, thick barium, barium pudding, and barium coated cracker. FLUOROSCOPY TIME: 1:57 minutes/seconds RADIOLOGIST INVOLVEMENT: Radiologist was present and providing direct supervision. COMPARISON: None. FINDINGS: The following was observed during swallowing of the various mixtures of barium: Thin Barium: There was no evidence of aspiration but there was transient laryngeal penetration. Thick Barium: There was no evidence of aspiration or laryngeal penetration. Barium Pudding: There was no evidence of aspiration or laryngeal penetration. Barium Coated Cracker: There was no evidence of aspiration or laryngeal penetration. RAD/Swallowing Function w/Video IMPRESSION: Transient laryngeal penetration with thin barium but no aspiration noted. The swallow study findings were discussed with the patient by the speech pathologist at the conclusion of the examination. Please see speech pathology report for more information and recommendations. The procedure was performed by Jayme Diaz speech therapist. Electronically Signed: Michael Loera MD at 14:49 EDT , Service support ,
[2019-02-19 15:48] VITALS: BP 169/66; PULSE 48; RESP 19; TEMP 36.6; O2SAT 96
[2019-02-19] MEDS: CEFUROXIME AXETIL 250 MG TABLET 500 MG PO (16:15)
[2019-02-19 17:10] LABS: Bedside Glucose 179 mg/dL (70-110)
[2019-02-19 19:25] VITALS: PULSE 49; RESP 26
[2019-02-19] MEDS: Albuterol 2.5 MG/3 ML VIAL.NEB. INHALATION (19:25)
[2019-02-19] MEDS: Aspirin E.C. 81 MG Tablet PO (20:25)
[2019-02-19 21:06] LABS: Bedside Glucose 203 mg/dL (70-110)
[2019-02-20] MEDS: Senna/Docusate Sodium 1 Tablet PO ×2 (06:07→16:29)
[2019-02-20] MEDS: Bumetanide 0.5 MG Tablet 1 MG PO ×2 (06:07→13:58)
[2019-02-20] MEDS: Levothyroxine 88 MCG Tablet PO (06:07)
[2019-02-20] MEDS: CEFUROXIME AXETIL 250 MG TABLET 500 MG PO (06:07)
[2019-02-20] MEDS: guaiFENesin 1,200 MG Tablet 1200 MG PO (06:08)
[2019-02-20] MEDS: Fluticasone/Salmeterol 232-14 Inhaler 1 PUFF IH ×2 (06:13→16:31)
[2019-02-20] MEDS: Umeclidinium Bromide Inhaler 1 PUFF IH (06:14)
[2019-02-20 06:21] VITALS: BP 195/70; PULSE 47; O2SAT 97
[2019-02-20 07:09] VITALS: O2SAT 98
[2019-02-20] MEDS: Insulin Lispro 100 UNIT/ML INSULN.PEN 8 UNIT SC ×3 (08:58→17:43)
[2019-02-20] MEDS: Multivitamins,Ther W-Minerals Tablet 1 TABLET PO (08:58)
[2019-02-20] MEDS: predniSONE 10 MG Tablet PO (08:58)
[2019-02-20] MEDS: ALPRAZolam 0.25 MG Tablet 0.125 MG PO ×2 (09:02→21:16)
[2019-02-20 09:06] LABS: Bedside Glucose 150 mg/dL (70-110)
[2019-02-20 11:41] LABS: Bedside Glucose 193 mg/dL (70-110)
[2019-02-20 13:35] VITALS: PULSE 45; RESP 16; O2SAT 95
[2019-02-20] MEDS: Albuterol 2.5 MG/3 ML VIAL.NEB. INHALATION (13:35)
[2019-02-20 14:26] VITALS: BP 141/49; PULSE 51; RESP 18; TEMP 36.8; O2SAT 98
--- NOTE | 2019-02-20 15:50 | NURSING ---
Pt c/o of felling short of breath, states she feels like she will have a panic attack. Inhaler given, fan turned on pt, sat with pt and talked to her, pox 95 on 2l, states she was talking to her on the phne and got worried about him driving to [place], pt states she feels like her abd is pushing up, did not have bm today, will give stool softner. After inhaler, water, fan, pt states she feels better. Will continue to monitor.
[2019-02-20 16:11] VITALS: BP 155/52; PULSE 52
[2019-02-20 17:10] LABS: Bedside Glucose 260 mg/dL (70-110)
[2019-02-20] MEDS: Amiodarone 200 MG Tablet PO (18:22)
[2019-02-20 18:23] VITALS: PULSE 62
--- NOTE | 2019-02-20 18:23 | NURSING ---
dr kim updated on HR 40's during stay on TCU, new order to hold Amiodarone if HR <50 BPM. HR 62 tonght, Amio given. pt updated.
[2019-02-20 21:06] LABS: Bedside Glucose 286 mg/dL (70-110)
[2019-02-20] MEDS: Aspirin E.C. 81 MG Tablet PO (21:16)
[2019-02-21] MEDS: guaiFENesin 1,200 MG Tablet 1200 MG PO (05:34)
[2019-02-21] MEDS: Bumetanide 0.5 MG Tablet 1 MG PO ×2 (05:34→13:39)
[2019-02-21] MEDS: Levothyroxine 88 MCG Tablet PO (05:36)
[2019-02-21] MEDS: CEFUROXIME AXETIL 250 MG TABLET 500 MG PO (05:36)
[2019-02-21] MEDS: Fluticasone/Salmeterol 232-14 Inhaler 1 PUFF IH ×2 (05:36→16:55)
[2019-02-21] MEDS: Umeclidinium Bromide Inhaler 1 PUFF IH (05:36)
[2019-02-21] MEDS: Senna/Docusate Sodium 1 Tablet PO ×2 (05:37→16:56)
[2019-02-21 05:47] VITALS: PULSE 47; O2SAT 99
[2019-02-21 06:03] LABS: Anion Gap 7 (5-15); BUN 59 mg/dL (7-18); BUN/Creat Ratio 29.5 RATIO (10-20); Calcium,Total 8.3 mg/dL (8.5-10.1); Chloride 103 mmol/L (98-107); EST Glomerular Filtration Rate 26 mL/min (>60); Est Glom Filt Rate - Afr Amer 31 mL/min (>60); Estimated Creatinine Clearance 19.49 ml/min; Glucose 160 mg/dL (74-106); Potassium 4.2 mmol/L (3.5-5.1); Sodium Level 144 mmol/L (136-145)
[2019-02-21 06:35] LABS: Bedside Glucose 180 mg/dL (70-110)
[2019-02-21] MEDS: Albuterol 2.5 MG/3 ML VIAL.NEB. INHALATION (07:10)
[2019-02-21 07:50] VITALS: PULSE 41; RESP 18; O2SAT 99
[2019-02-21] MEDS: Multivitamins,Ther W-Minerals Tablet 1 TABLET PO (08:37)
[2019-02-21] MEDS: Insulin Lispro 100 UNIT/ML INSULN.PEN 8 UNIT SC ×3 (08:37→17:37)
[2019-02-21] MEDS: ALPRAZolam 0.25 MG Tablet 0.125 MG PO ×2 (08:37→20:46)
[2019-02-21] MEDS: predniSONE 10 MG Tablet PO (08:37)
[2019-02-21 11:31] LABS: Bedside Glucose 244 mg/dL (70-110)
[2019-02-21 16:00] VITALS: BP 151/56; PULSE 49; RESP 18; TEMP 36; O2SAT 94
[2019-02-21] MEDS: Glucerna Shake 120 ML LIQUID 60 ML PO ×2 (16:59→20:41)
[2019-02-21 17:11] LABS: Bedside Glucose 336 mg/dL (70-110)
[2019-02-21 19:00] VITALS: O2SAT 92
[2019-02-21] MEDS: Aspirin E.C. 81 MG Tablet PO (20:47)
[2019-02-21 21:37] LABS: Bedside Glucose 359 mg/dL (70-110)
[2019-02-21 23:12] VITALS: O2SAT 97
[2019-02-22] MEDS: Bumetanide 0.5 MG Tablet 1 MG PO ×2 (05:26→13:31)
[2019-02-22] MEDS: CEFUROXIME AXETIL 250 MG TABLET 500 MG PO (05:26)
[2019-02-22] MEDS: Glucerna Shake 120 ML LIQUID 60 ML PO ×4 (05:28→20:48)
[2019-02-22] MEDS: Fluticasone/Salmeterol 232-14 Inhaler 1 PUFF IH ×2 (05:28→17:32)
[2019-02-22] MEDS: Umeclidinium Bromide Inhaler 1 PUFF IH (05:29)
[2019-02-22] MEDS: guaiFENesin 1,200 MG Tablet 1200 MG PO (05:29)
[2019-02-22] MEDS: Levothyroxine 88 MCG Tablet PO (05:30)
[2019-02-22] MEDS: Senna/Docusate Sodium 1 Tablet PO ×2 (05:30→17:33)
[2019-02-22] MEDS: Calcitriol 0.25 MCG Capsule PO (05:30)
[2019-02-22 05:56] LABS: International Normalized Ratio 2.3; Prothrombin Time (Protime)PT. 25.2 SECONDS (11.7-14.9)
[2019-02-22 06:36] LABS: Bedside Glucose 307 mg/dL (70-110)
[2019-02-22 07:05] VITALS: PULSE 41; RESP 16; O2SAT 99
[2019-02-22] MEDS: Albuterol 2.5 MG/3 ML VIAL.NEB. INHALATION (07:05)
--- NOTE | 2019-02-22 08:08 | PCM.PN.RX ---
<Fredi Samaniego - Last Filed: 02/22/19 08:08> Progress Note - Pharmacy Subjective: [] TCU Admission Objective: Allergies dronedarone [From Multaq] Allergy (Severe, Verified 02/10/19 15:50) difficulty breathing dronedarone HCl [From Multaq] Allergy (Verified 02/10/19 15:50) Other unable to breath levofloxacin [From Levaquin] Adverse Reaction (Severe, Verified 02/10/19 15:50) hallucinations, hot flashes quinapril [From Accupril] Adverse Reaction (Severe, Verified 02/10/19 15:50) near syncope cortisone Adverse Reaction (Intermediate, Verified 02/10/19 15:50) swelling hydralazine Adverse Reaction (Intermediate, Verified 02/10/19 15:50) weakness Beta-Blockers (Beta-Adrenergic Bloc Adverse Reaction (Verified 02/10/19 15:50) Other WHEEZING, shaking, passes out CARDURA Allergy (Uncoded 02/10/19 15:50) Other PT NOT SURE- POSSIBLE SWELLING NORVASC Allergy (Uncoded 02/10/19 15:50) Swelling SCALLOPS Allergy (Uncoded 02/10/19 15:50) Swelling SULFA Allergy (Uncoded 02/10/19 15:50) Other SPOTS IN MOUTH/SORE MOUTH ATIVAN Adverse Reaction (Uncoded 02/10/19 15:50) Other HALLUCINATIONS METATOPOLOL TARTATE Adverse Reaction (Uncoded 02/10/19 15:50) Other Current Medications Generic Name Dose Route Start Last Admin Trade Name Freq PRN Reason Stop Dose Admin Acetaminophen 1,000 mg 02/17/19 21:46 Tylenol PO Q6H PRN PRN MILD PAIN (1-3/10) Albuterol Sulfate 2 puff 02/17/19 14:51 02/20/19 15:45 Ventolin Hfa (Sp) INHALATION 2 puff Q4H PRN PRN Administration Wheezing Albuterol Sulfate 2.5 mg 02/18/19 18:00 02/22/19 07:05 Ventolin Aerosols INHALATION 2.5 mg BID.RT JOANNE Administration Alprazolam 0.125 mg 02/19/19 08:00 02/21/19 20:46 Xanax PO 0.125 mg 0800,1999 JOANNE Administration Amiodarone HCl 200 mg 02/20/19 18:00 02/22/19 05:27 Cordarone PO 02/24/19 18:01 Not Given BID COUNT INCLUDES [facility] Amiodarone HCl 200 mg 02/25/19 06:00 Cordarone PO DAILY COUNT INCLUDES THE [facility] Aspirin 81 mg 02/17/19 22:00 02/21/19 20:47 Ecotrin PO 81 mg QHS COUNT INCLUDES THE [facility] Administration Bisacodyl 10 mg 02/17/19 15:06 Dulcolax RECTAL PRN PRN Constipation Bumetanide 1 mg 02/19/19 06:00 02/22/19 05:26 Bumex PO 1 mg BIDLX COUNT INCLUDES [facility] Administration Calcitriol 0.25 mcg 02/19/19 06:00 02/22/19 05:30 Rocaltrol PO 0.25 mcg MOWEFR COUNT INCLUDES THE [facility] Administration Cefuroxime Axetil 500 mg 02/20/19 06:00 02/22/19 05:26 Ceftin PO 02/27/19 06:01 500 mg DAILY COUNT INCLUDES THE [facility] Administration Emollient Ointment 1 applic 02/17/19 22:00 02/22/19 05:27 Eucerin Intensive Repair TOPICAL 1 applicatio 0600,2200 COUNT INCLUDES THE [facility] Administration Protocol Guaifenesin 1,200 mg 02/18/19 06:00 02/22/19 05:29 Mucinex PO 1,200 mg DAILY COUNT INCLUDES [facility] Administration Insulin Glargine 40 units 02/22/19 06:00 02/22/19 06:59 Lantus ([facility]) SC 40 u DAILY COUNT INCLUDES THE [facility] Administration Insulin Human Lispro 13 unit 02/22/19 06:45 Humalog Kwikpen ([facility]) [place] TIDAC COUNT INCLUDES THE [facility] Levothyroxine Sodium 88 mcg 02/18/19 06:00 02/22/19 05:30 Synthroid PO 88 mcg DAILY COUNT INCLUDES THE [facility] Administration Multivitamins/Minerals 1 tablet 02/18/19 08:00 02/21/19 08:37 Multivitamin With Minerals PO 1 tablet DAILY@0800 COUNT INCLUDES [facility] Administration Nutritional Formula (Lactose Free) 60 ml 02/21/19 17:00 02/22/19 05:28 Glucerna Shake PO 60 mls 4X/DAY COUNT INCLUDES THE [facility] Administration Polyethylene Glycol 17 gm 02/18/19 06:00 02/22/19 05:31 Miralax PO Not Given DAILY COUNT INCLUDES [facility] Prednisone 10 mg 02/18/19 08:00 02/21/19 08:37 PO 10 mg DAILYCM JOANNE Administration Fluticasone/Salmeterol 1 puff 02/17/19 18:00 02/22/19 05:28 Fluticasone-Salmeterol 232-14 IH 1 puff Q12 JOANNE Administration Senna/Docusate Sodium 1 tablet 02/18/19 06:00 02/22/19 05:30 Senokot-S, Amy-Colace PO 1 tablet BID JOANNE Administration Tuberculin PPD 5 tu 02/25/19 10:00 Tubersol, Aplisol, Ppd ID 02/25/19 10:01 X1 ONE Warfarin Sodium 4 mg 02/22/19 17:00 Coumadin (Pb[facility]) PO MoTu@1700 COUNT INCLUDES [facility] Protocol Warfarin Sodium 3 mg 02/17/19 17:00 02/21/19 16:56 Coumadin (Pbkc) PO 3 mg SuWeThFrSa@1700 COUNT INCLUDES THE [facility] Administration Protocol Problem List (Last Updated 02/17/19 @ 08:52 by Lisha Meneses NP-C) Debility (Acute) Shortness of breath (Acute) Acute on chronic diastolic heart failure (Acute) COPD exacerbation (Acute) Stage 4 chronic kidney disease (Chronic) Atrial fibrillation with rapid ventricular response (Chronic) Hypertension (Chronic) Coronary artery disease (Chronic) Pulmonary hypertension (Chronic) Diabetes mellitus (Chronic) Hypothyroidism (Chronic) Obstructive sleep apnea (Chronic) Diabetic foot ulcer (Chronic) Vital Signs Temp Pulse Resp BP Pulse Ox 96.8 F L 41 L 16 151/56 H 99 02/21/19 16:00 02/22/19 07:05 02/22/19 07:05 02/21/19 16:00 02/22/19 07:05 Oxygen Flow Rate (L/min) 2 Oxygen Delivery Method Nasal Cannula Weight: 76.317 kg Body Mass Index (BMI) 29.8 Finger Stick Blood Glucose 97 Sodium 144 mmol/L (136-145) 02/21/19 05:30 Potassium 4.2 mmol/L (3.5-5.1) 02/21/19 05:30 Chloride 103 mmol/L (98-107) 02/21/19 05:30 Carbon Dioxide 34.0 mmol/L (21.0-32.0) H 02/21/19 05:30 7 (5-15) 02/21/19 05:30 BUN 59 mg/dL (7-18) H 02/21/19 05:30 2.00 mg/dL (0.55-1.02) H 02/21/19 05:30 Est GFR (MDRD) Af Amer 31 mL/min (>60) L 02/21/19 05:30 Est GFR (MDRD) Non-Af 26 mL/min (>60) L 02/21/19 05:30 29.5 RATIO (10-20) H 02/21/19 05:30 Glucose 160 mg/dL (74-106) H 02/21/19 05:30 Assessment/Plan: 1) Pain: Acetaminophen 1000mg po q6h prn for mild pain. Please continue to monitor prn usage and for signs/symptoms of increased/decreased pain. 2) Hypothyroidism: Levothyroxine 88mcg po daily. Pt's last TSH was elevated at 9.45. Please continue to monitor 3) Congestion: Mucinex 1200mg po daily. Please continue to monitor for signs/symptoms of congestion 4) Diabetes: Lantus 40units subq daily, Humalog 13units subq tid before meals. Pt is on an oral corticosteroid. Please continue to monitor blood sugars 5) COPD: Albuterol HFA--inhale 2 puffs po q4h prn for wheezing, Albuterol nebs 2.5mg via nebulizer bid, Fluticasone/Salmeterol 232/14--Inhale 1 puff po q12h, Prednisone 10mg po daily with food. Please continue to have pt rinse, gargle, and spit after each dose of Fluticasone/Salmeterol to help avoid oral thrush. Pt has used 2 doses of prn Albuterol. Please continue to monitor. 6) CAD, CHF: Aspirin 81mg po qhs, Bumex 1mg po bid. Pt's weight is holding steady at 76kg. Pt's Na is 144, K+ is 4.2 and average BP is 161.7/61.6. Please continue to monitor. 7) AFib: Amiodarone 200mg taper dose (goal is 200mg po daily), Warfarin 4mg po on MoTu, and 3mg on SuWeThFrSa. Pt's INR is 2.3. Please continue to monitor. Psychotropic Medications: Alprazolam 0.125mg po bid. Please see dr note about risk/benefit *Unnecessary Medications: Under Problem list, pt has a diagnosis of Hyperlipidemia, but is currently not taking anything for hyperlipidemia. Please consider updating problem/diagnosis list. Thanks *Bowel Regimen: Bisacodyl 10mg rectally prn for constipation, Miralax 17gm po daily, Senna/Docusate 1 tablet po bid. Pt has refused every Miralax dose. Please consider making this prn. Bisacodyl suppositories does not have a frequency, please consider changing to daily prn. thanks Date of Note:: 02/22/19 - Provider Comments Provider responsibility: Provider responsible to enter orders to implement recommendations <Alexis Farias Chi - Last Filed: 02/22/19 17:35> Progress Note - Pharmacy Subjective: [] Objective: Allergies dronedarone [From Multaq] Allergy (Severe, Verified 02/10/19 15:50) difficulty breathing dronedarone HCl [From Multaq] Allergy (Verified 02/10/19 15:50) Other unable to breath levofloxacin [From Levaquin] Adverse Reaction (Severe, Verified 02/10/19 15:50) hallucinations, hot flashes quinapril [From Accupril] Adverse Reaction (Severe, Verified 02/10/19 15:50) near syncope cortisone Adverse Reaction (Intermediate, Verified 02/10/19 15:50) swelling hydralazine Adverse Reaction (Intermediate, Verified 02/10/19 15:50) weakness Beta-Blockers (Beta-Adrenergic Bloc Adverse Reaction (Verified 02/10/19 15:50) Other WHEEZING, shaking, passes out CARDURA Allergy (Uncoded 02/10/19 15:50) Other PT NOT SURE- POSSIBLE SWELLING NORVASC Allergy (Uncoded 02/10/19 15:50) Swelling SCALLOPS Allergy (Uncoded 02/10/19 15:50) Swelling SULFA Allergy (Uncoded 02/10/19 15:50) Other SPOTS IN MOUTH/SORE MOUTH ATIVAN Adverse Reaction (Uncoded 02/10/19 15:50) Other HALLUCINATIONS METATOPOLOL TARTATE Adverse Reaction (Uncoded 02/10/19 15:50) Other Current Medications Generic Name Dose Route Start Last Admin Trade Name Freq PRN Reason Stop Dose Admin Acetaminophen 1,000 mg 02/17/19 21:46 Tylenol PO Q6H PRN PRN MILD PAIN (1-3/10) Albuterol Sulfate 2 puff 02/17/19 14:51 02/20/19 15:45 Ventolin Hfa (Sp) INHALATION 2 puff Q4H PRN PRN Administration Wheezing Albuterol Sulfate 2.5 mg 02/18/19 18:00 02/22/19 07:05 Ventolin Aerosols INHALATION 2.5 mg BID.RT JOANNE Administration Alprazolam 0.125 mg 02/19/19 08:00 02/22/19 08:24 Xanax PO 0.125 mg JOANNE Administration Aspirin 81 mg 02/17/19 22:00 02/21/19 20:47 Ecotrin PO 81 mg QHS JOANNE Administration Bisacodyl 10 mg 02/17/19 15:06 Dulcolax RECTAL PRN PRN Constipation Bumetanide 1 mg 02/19/19 06:00 02/22/19 13:31 Bumex PO 1 mg BIDLX JOANNE Administration Calcitriol 0.25 mcg 02/19/19 06:00 02/22/19 05:30 Rocaltrol PO 0.25 mcg MOWEFR JOANNE Administration Cefuroxime Axetil 500 mg 02/20/19 06:00 02/22/19 05:26 Ceftin PO 02/27/19 06:01 500 mg DAILY JOANNE Administration Emollient Ointment 1 applic 02/17/19 22:00 02/22/19 05:27 Eucerin Intensive Repair TOPICAL 1 applicatio 0600,2200 JOANNE Administration Protocol Guaifenesin 1,200 mg 02/18/19 06:00 02/22/19 05:29 Mucinex PO 1,200 mg DAILY JOANNE Administration Insulin Glargine 40 units 02/22/19 06:00 02/22/19 06:59 Lantus ([facility]) SC 40 u DAILY JOANNE Administration Insulin Human Lispro 13 unit 02/22/19 06:45 02/22/19 12:28 Humalog Kwikpen ([facility]) SC 13 units TIDAC JOANNE Administration Levothyroxine Sodium 88 mcg 02/18/19 06:00 02/22/19 05:30 Synthroid PO 88 mcg DAILY JOANNE Administration Multivitamins/Minerals 1 tablet 02/18/19 08:00 02/22/19 08:24 Multivitamin With Minerals PO 1 tablet DAILY@0800 JOANNE Administration Nutritional Formula (Lactose Free) 60 ml 02/21/19 17:00 02/22/19 12:27 Glucerna Shake PO 120 mls 4X/DAY JOANNE Administration Polyethylene Glycol 17 gm 02/18/19 06:00 02/22/19 05:31 Miralax PO Not Given DAILY JOANNE Prednisone 10 mg 02/18/19 08:00 02/22/19 08:25 PO 10 mg DAILYCM JOANNE Administration Fluticasone/Salmeterol 1 puff 02/17/19 18:00 02/22/19 05:28 Fluticasone-Salmeterol 232-14 IH 1 puff Q12 JOANNE Administration Senna/Docusate Sodium 1 tablet 02/18/19 06:00 02/22/19 05:30 Senokot-S, Amy-Colace PO 1 tablet BID JOANNE Administration Tuberculin PPD 5 tu 02/25/19 10:00 Tubersol, Aplisol, Ppd ID 02/25/19 10:01 X1 ONE Warfarin Sodium 4 mg 02/22/19 17:00 Coumadin (Pbkc) PO MoTu@1700 COUNT INCLUDES THE [facility] Protocol Warfarin Sodium 3 mg 02/17/19 17:00 02/21/19 16:56 Coumadin (Pbkc) PO 3 mg SuWeThFrSa@1700 COUNT INCLUDES [facility] Administration Protocol Problem List (Last Updated 02/17/19 @ 08:52 by Lisha Meneses NP-C) Debility (Acute) Shortness of breath (Acute) Acute on chronic diastolic heart failure (Acute) COPD exacerbation (Acute) Stage 4 chronic kidney disease (Chronic) Atrial fibrillation with rapid ventricular response (Chronic) Hypertension (Chronic) Coronary artery disease (Chronic) Pulmonary hypertension (Chronic) Diabetes mellitus (Chronic) Hypothyroidism (Chronic) Obstructive sleep apnea (Chronic) Diabetic foot ulcer (Chronic) Vital Signs Temp Pulse Resp BP Pulse Ox 96.8 F L 41 L 16 151/56 H 99 02/21/19 16:00 02/22/19 07:05 02/22/19 07:05 02/21/19 16:00 02/22/19 07:05 Oxygen Flow Rate (L/min) 1 Oxygen Delivery Method Nasal Cannula Weight: 77.678 kg Body Mass Index (BMI) 29.8 Finger Stick Blood Glucose 97 Sodium 144 mmol/L (136-145) 02/21/19 05:30 Potassium 4.2 mmol/L (3.5-5.1) 02/21/19 05:30 Chloride 103 mmol/L (98-107) 02/21/19 05:30 Carbon Dioxide 34.0 mmol/L (21.0-32.0) H 02/21/19 05:30 7 (5-15) 02/21/19 05:30 BUN 59 mg/dL (7-18) H 02/21/19 05:30 2.00 mg/dL (0.55-1.02) H 02/21/19 05:30 Est GFR (MDRD) Af Amer 31 mL/min (>60) L 02/21/19 05:30 Est GFR (MDRD) Non-Af 26 mL/min (>60) L 02/21/19 05:30 29.5 RATIO (10-20) H 02/21/19 05:30 Glucose 160 mg/dL (74-106) H 02/21/19 05:30 Assessment/Plan: Psychotropic Medications: Unnecessary Medications: Bowel Regimen: - Provider Comments Provider responsibility: Provider responsible to enter orders to implement recommendations Provider Comments to Recommendations by Pharmacy: Agree
[2019-02-22] MEDS: Multivitamins,Ther W-Minerals Tablet 1 TABLET PO (08:24)
[2019-02-22] MEDS: ALPRAZolam 0.25 MG Tablet 0.125 MG PO ×2 (08:24→20:48)
[2019-02-22] MEDS: predniSONE 10 MG Tablet PO (08:25)
[2019-02-22] MEDS: Insulin Lispro 100 UNIT/ML INSULN.PEN 13 UNIT SC ×3 (08:25→17:34)
--- NOTE | 2019-02-22 10:12 | NURSING ---
Addendum entered by Jackie King 02/22/19 15:54: pt does have a follow up with KATINA escobar March 09 @ 11a Addendum entered by Jackie King 02/22/19 15:26: KATINA Escobar returned call and wants amiodarone stopped and monitor pt. Will take some time for it to leave body. If pt continues to have symptoms then notify her and she will order a holter monitor. pt updated and agreeable to plan. Addendum entered by Jackie King 02/22/19 12:00: KATINA Escobar from [facility] returned call and will review pt records and give TCU a call back. Original Note: Dr Dennis office to return call regarding scheduling appt for pt d/t low HR
[2019-02-22 11:06] LABS: Bedside Glucose 224 mg/dL (70-110)
[2019-02-22 16:00] VITALS: BP 150/90; PULSE 53; RESP 20; TEMP 37.2; O2SAT 91
[2019-02-22 17:21] LABS: Bedside Glucose 257 mg/dL (70-110)
[2019-02-22] MEDS: Aspirin E.C. 81 MG Tablet PO (20:48)
[2019-02-22 21:30] LABS: Bedside Glucose 316 mg/dL (70-110)
[2019-02-23] MEDS: Fluticasone/Salmeterol 232-14 Inhaler 1 PUFF IH ×2 (04:18→17:03)
[2019-02-23] MEDS: Umeclidinium Bromide Inhaler 1 PUFF IH (04:18)
[2019-02-23] MEDS: Senna/Docusate Sodium 1 Tablet PO ×2 (04:19→17:03)
[2019-02-23] MEDS: Bumetanide 0.5 MG Tablet 1 MG PO ×2 (04:19→12:58)
[2019-02-23] MEDS: Levothyroxine 88 MCG Tablet PO (04:19)
[2019-02-23] MEDS: guaiFENesin 1,200 MG Tablet 1200 MG PO (04:19)
[2019-02-23] MEDS: CEFUROXIME AXETIL 250 MG TABLET 500 MG PO (04:19)
[2019-02-23 06:55] VITALS: PULSE 48; RESP 18; O2SAT 97
[2019-02-23] MEDS: Albuterol 2.5 MG/3 ML VIAL.NEB. INHALATION (06:55)
[2019-02-23 06:56] LABS: Bedside Glucose 224 mg/dL (70-110)
[2019-02-23] MEDS: Insulin Lispro 100 UNIT/ML INSULN.PEN 13 UNIT SC ×2 (09:27→12:18)
[2019-02-23] MEDS: Multivitamins,Ther W-Minerals Tablet 1 TABLET PO (09:27)
[2019-02-23] MEDS: ALPRAZolam 0.25 MG Tablet 0.125 MG PO ×2 (09:27→20:48)
[2019-02-23] MEDS: predniSONE 10 MG Tablet PO (09:27)
--- NOTE | 2019-02-23 09:44 | CASEMGMT ---
Insurance: Clinical update faxed to [facility] this day. Auth # [id number]
[2019-02-23 11:15] LABS: Bedside Glucose 247 mg/dL (70-110)
[2019-02-23] MEDS: Glucerna Shake 120 ML LIQUID 60 ML PO ×3 (12:20→20:48)
--- NOTE | 2019-02-23 12:42 | NURSING ---
This nurse in to give pt lunch time meds. Pt is talking with daughter and states In therapy today we found this new bruise on my thigh. Large bruise noted to left inner thigh. Pt denies pain. This nurse asking questions about if the pt bumped into anything, etc., pt denies. Pt states, I was squeezing the ball in therapy and maybe that caused it. Pt's daughter here for conversation. Pt is on Coumadin, INR WNL. director of neurology and charge nurse aware of findings. Continuing to monitor.
--- NOTE | 2019-02-23 14:06 | CON.PCM_ITS ---
History of Present Illness Date of Consult: 02/23/19 Reason for Consult: palliative eval support Requesting physician: Kelli Farias Primary care physician: Jovana Moulton MD - History of Present Illness The patient is a 78 year old F admitted originally to [facility] thru the ER with SOB and edema. Pt's third admit in past 2-3 months for CHF and COPD. Had aggressive care with trial of bipap tolerated poorly, diuresis, steroids, O2, aerosols. Improved with care in PCU and moved to TCU for rehab and strengthening. Pt with significant CKD stage IV and has been under care from Dr. Ulloa. Has hx of Mitral valve replacement and sees Dr. Dennis and Dr. Smiley. Appreciate records on file. Met with pt at bedside today. Reviewed records and meds, etc.. Discussed with care management. Pt is improving some here with PT/OT. Up with walker. Uses O2 per n/c nearly RTC and at home. Uses CPAP here but would like a different mask d/t some mouth breathing. Her edema has improved and she is S OB at times and with exertion. Denies pain but has some anxiety that complicates her SOB. She has multiple comorbidities. SHe is on low dose prednisone for her COPD and renal functions have worsened some with this admission. She is on fluid restriction and daily diuretics. Bp monitored closely. On coumadin for atrial fib. Has erlin basically home bound for the past 2 months or more. Has home O2 since 2017. States she does not want dialysis if her kidneys fail further and has discussed this with Dr. Ulloa. She wears support stockings and monitors her sugars and is on basal and short acting insulin. She c/o here of some brief lightheadedness with activity. No c/p or palpitations now. She has considerable fatigue and weakness with limited endurance. Discharge plan is for this weekend and to go home. Lives with her who is still working. Nonsmoker. WE discussed with her at length and with staff. Chart reviewed. Patient Problems: Chronic Problems (Last Updated 02/17/19 @ 08:52 by JOSE ANGEL Null) Stage 4 chronic kidney disease (Chronic) Atrial fibrillation with rapid ventricular response (Chronic) Hypertension (Chronic) Coronary artery disease (Chronic) Pulmonary hypertension (Chronic) Diabetes mellitus (Chronic) Hypothyroidism (Chronic) Obstructive sleep apnea (Chronic) Diabetic foot ulcer (Chronic) Asthma (Chronic) Venous insufficiency of both lower extremities (Chronic) Chronic kidney disease (Chronic) Secondary pulmonary arterial hypertension (Chronic) Essential (primary) hypertension (Chronic) Non-rheumatic mitral valve stenosis (Chronic) H/O coronary 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) CABG x 1 : SVG to distal LAD 09/29/2014 Atherosclerosis of coronary artery of [place] heart without angina pectoris (Chronic) CABG x 1 : SVG to distal LAD 09/29/2014 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 Angela Alexis History of mitral valve replacement with bioprosthetic valve (Chronic 09/29/14) 09/29/2014: MVR with 27 mm Medtronic tisue valve per Dr. Angela Alexis Hyperlipidemia (Chronic) Surgical History: angioplasty, cataract, coronary bypass surgery - x 1., hysterectomy, - - s/p maze procedure, s/p mitral replacement Psychiatric History: Depression Home Medications: Ambulatory Orders Medication Instructions Recorded Albuterol Inhaler [Ventolin Hfa] 2 puff INHALATION Q4H PRN PRN #1 10/27/14 inhaler Aspirin E.C. [Ecotrin] 81 mg PO QHS 01/07/18 Albuterol Aerosols [Ventolin 3 ml INHALATION BID 06/22/18 Aerosols] Multivit-Min/Iron/Folic/Lutein 1 tab PO DAILY 06/22/18 [Centrum Silver Women Tablet] levothyroxine 88 mcg tablet 88 mcg PO DAILY 30 Days #90 tab 07/27/18 insulin lispro (U-100) 100 unit/mL See Protocol SC .with meals ml 09/29/18 subcutaneous pen Lecithin, Soy [Lecithin] 1,200 mg PO DAILY 11/23/18 Warfarin Sodium 3 mg PO SUWETHFRSA 11/23/18 Warfarin Sodium [Coumadin] 4 mg PO MOTU 11/23/18 Insulin Glargine [Lantus SoloStar 35 units SUBCUT DAILY 01/10/19 Pen] Fluticasone/Umeclidin/Vilanter 1 puff INHALATION DAILY 02/03/19 [Trelegy Ellipta 100-62.5-25] Guaifenesin [Mucinex] 1,200 mg PO DAILY 02/03/19 Insulin Lispro [Humalog KwikPen] 8 unit SUBCUT TIDAC 02/03/19 ALPRAZolam [Xanax] 0.125 mg PO BID 02/17/19 Amiodarone HCl [Cordarone] 200 mg PO BID 02/17/19 Bumetanide [Bumex] 2 mg PO BIDLX 02/17/19 Calcitriol [Rocaltrol] 0.25 mcg PO MOWEFR 02/17/19 Prednisone 10 mg PO DAILY 02/17/19 Allergies dronedarone [From Multaq] Allergy (Severe, Verified 02/10/19 15:50) difficulty breathing dronedarone HCl [From Multaq] Allergy (Verified 02/10/19 15:50) Other unable to breath levofloxacin [From Levaquin] Adverse Reaction (Severe, Verified 02/10/19 15:50) hallucinations, hot flashes quinapril [From Accupril] Adverse Reaction (Severe, Verified 02/10/19 15:50) near syncope cortisone Adverse Reaction (Intermediate, Verified 02/10/19 15:50) swelling hydralazine Adverse Reaction (Intermediate, Verified 02/10/19 15:50) weakness Beta-Blockers (Beta-Adrenergic Bloc Adverse Reaction (Verified 02/10/19 15:50) Other WHEEZING, shaking, passes out CARDURA Allergy (Uncoded 02/10/19 15:50) Other PT NOT SURE- POSSIBLE SWELLING NORVASC Allergy (Uncoded 02/10/19 15:50) Swelling SCALLOPS Allergy (Uncoded 02/10/19 15:50) Swelling SULFA Allergy (Uncoded 02/10/19 15:50) Other SPOTS IN MOUTH/SORE MOUTH ATIVAN Adverse Reaction (Uncoded 02/10/19 15:50) Other HALLUCINATIONS METATOPOLOL TARTATE Adverse Reaction (Uncoded 02/10/19 15:50) Other Maternal Family History: Family History (Last Reviewed 01/25/19 @ 11:26 by Ely Serrato) Father CAD (coronary artery disease) Hypertension Myocardial infarction Sudden cardiac Hyperlipidemia Mother Breast cancer Brother Cancer Sister Breast cancer Hyperlipidemia Sister Hyperlipidemia History Items: Cancer Paternal Family History: Family History (Last Reviewed 01/25/19 @ 11:26 by Ely Serrato) Father CAD (coronary artery disease) Hypertension Myocardial infarction Sudden cardiac Hyperlipidemia Mother Breast cancer Brother Cancer Sister Breast cancer Hyperlipidemia Sister Hyperlipidemia History Items: Heart Disease, Stroke Sibling Family History: Family History (Last Reviewed 01/25/19 @ 11:26 by Ely Serrato) Father CAD (coronary artery disease) Hypertension Myocardial infarction Sudden cardiac Hyperlipidemia Mother Breast cancer Brother Cancer Sister Breast cancer Hyperlipidemia Sister Hyperlipidemia History Items: Cancer - in brother and sister - Social History Lives: Spouse/ Significant Other Smoking Status: Never smoker Tobacco Use: Non-smoker Alcohol: None Drugs: None - Spiritual Assessment Member of [employer] and has support from them. REports good family support. Code Status: DNRCC-A Advanced Care Planning: Has living will and Chris is DPOAHC. Has 4 children and lives at home with her . Goals of Care: Goals are discussed with her. She wants to be at home. Wants to avoid return trips to [facility]. Is agreeable to palliative care f/u and symptom mgmt. Is open to hospice if further decline or changes. Would like to wean off O2 if able. Would ultimately like to travel to [place] to see family. Trying to get portable O2 at home. Wants to be independent. Aware of her multiple comorbidities. Review of Systems Constitutional: Reports: Night Sweats, Weakness, Fatigue. Denies: Anorexia, Chills, Fever Eyes: Denies: Blurred vision, Cataracts, Pain, Redness, Vision Change HEENT: Reports: Difficulty Swallowing. Denies: Difficulty Hearing, Dysphasia, Nasal bleeding, Nasal Congestion, Visual Changes Cardiovascular: Reports: Chest Pressure, Heaviness, Paroxysmal Noc. Dyspnea. Denies: Chest Pain, Claudication Respiratory: Reports: Cough, Shortness of Breath, Shortness of breath at rest, Shortness of breath upon exertion Gastrointestinal: Denies: Abdominal Pain, Constipation, Diarrhea, Vomiting Genitourinary: Denies: Dysuria, Frequency, Hematuria, Hesitancy, Incontinence Gynecological: Denies: Breast symptoms, Sexual concerns Musculoskeletal: Denies: Joint stiffness, Joint swelling, Joint Tenderness Skin: Denies: Dryness, Jaundice, Skin Changes, Wounds Neurological: Reports: Balance problems, Difficulty swallowing, Tingling. Denies: Tremor, Seizures Psychiatric: Reports: Anxiety, Depression Endocrine: Denies: Change in Body Habitus, Heat/ Cold Intolerance, Polydipsia Hematologic/ Lymphatic: Denies: Adenopathy, Anemia, Purpura Physical Exam Palliative Performance Scale %: 50 General: Alert, Oriented x3, Cooperative, Well nourished HEENT: Atraumatic, PERRLA, EOMI, Normocephalic Oral: Moist Mucosa Neck: Supple, No JVD, No Nodes, No Nuchal Rigidity, Trachea Midline Lungs: Diminished, Short of Breath Cardiovascular: No Ectopic Activity, Gallops, Irregular Rate, Murmur Abdomen: Bowel Sounds Present, Soft, Non Tender, Obese Extremities: Cool, Diminished Peripheral Pulses, Edema, - - hector hose Skin: No rashes, No breakdown Musculoskeletal: No Tenderness to Palpation of Joints or Extremities, Arthritic Changes Lymphatic: No Cervical, Supraclavicular, or Inguinal Adenopathy Neurological: Cranial nerves II-XII grossly intact, Deep Tendon Reflexes 2+/4 and Symmetrical, Neuro grossly intact Psych/Mental Status: Appropriate, Anxious, Alert and oriented to time, place, person, mood and affect Objective: Vital Signs Temp Pulse Resp BP Pulse Ox 98.9 F 48 L 18 150/90 H 97 02/22/19 16:00 02/23/19 06:55 02/23/19 06:55 02/22/19 16:00 02/23/19 06:55 Oxygen Flow Rate (L/min) 1 Oxygen Delivery Method Nasal Cannula Weight: 170 lb 5 oz Body Mass Index (BMI) 29.8 Finger Stick Blood Glucose 97 Intake and Output for Last 24 Hours 02/21/19 02/22/19 02/23/19 23:59 23:59 23:59 Intake Total 670 / 670 1290 / 1290 360 / 360 Balance 670 / 670 1290 / 1290 360 / 360 Laboratory Tests Past 24 Hrs 02/19/19 15:11 PTH Intact 179.0 H Assessment/Plan All Active Problems (Last Updated 02/17/19 @ 08:52 by Lisha Meneses NP-C) Debility (Acute) Shortness of breath (Acute) Acute on chronic diastolic heart failure (Acute) COPD exacerbation (Acute) Hypoglycemia due to insulin (Acute) Chronic diastolic (congestive) heart failure (Acute) Pt is 78 y/o female with recent hospitalization for SOB and edema and acute on chronic CHF and exacerbation of COPD with resp failure. Complicated by atrial fib with rapid ventricular response, CKD IV, MAGALI and anxiety with debility. Treated aggressively in PCU and later moved to TCU for rehab with PT/OT. Has multiple comorbidities noted in record and HPI. Good historian. Improved here some and has been plateauing with therapies. Plan for dc to home this weekend. Pt's goal is to go home. Has considerable fatigue and weakness with SOB and JIMÉNEZ. Has now been able to tolerate O2 per n/c, aerosols and feels she needs a different CPAP mask for her mouth breathing. De nies pain, palpitations and edema is improved. Concern for her anxiety and could consider increase in her Xanax to tid. Certainly agree with her meds at this point. Steroid inhaler is duplication with po prednisone. Monitor sugars and INR with insulin coverage. Encouraged rtc O2 use. Consider adding oxycodone prn at low dose for SOB and we discussed her symptom mgmt at length. She will f/u with her specialists. Discussed her home needs and potential for improvement and possible decline. Will need to continue fluid restriction and diuretics. Continue home O2 and need to maintain adequate pulse Ox. Feel pt is at risk for further episodes of above and discussed at length with her. Overall prognosis is likely poor and may in fact be less than 6 months? Will need c lose monitoring and care at home. She is agreeable to palliative care f/u upon dc from TCU. Does not wish to intubated nor placed on life support. She is realistic about her illnesses. We gave additional info on hospice and we discussed that program. She is agreeable to hospice referral if there is further decline, end organ changes or difficulty with symptom mgmt., etc.. Considerable support and education given today with good understanding. Will be speaking with her as well. Will f/u upon dc to home from TCU. Thanks.
--- NOTE | 2019-02-23 15:02 | CASEMGMT ---
Social Work Palliative Care admitted pt today. Will follow at home. Spoke with patient about discharge plans and insurance issuing a cut on next review date 02/26 for weekend discharge. Pt ready to discharge Wednesday 02/28 as works until the evening 02/27. Will talk with pt and about progress in therapy and their recommendations at care plan meeting tomorrow. Palliative care will visit patient at home Thursday 03/01. ARMINDA Jose
[2019-02-23 15:09] VITALS: BP 146/64; PULSE 50; RESP 16; TEMP 36.8; O2SAT 95
[2019-02-23 17:01] LABS: Bedside Glucose 329 mg/dL (70-110)
--- NOTE | 2019-02-23 17:25 | NURSING ---
New order to increase Lantus to 50units daily and increase humalog to 17 units TIDAC.
[2019-02-23] MEDS: Insulin Lispro 100 UNIT/ML INSULN.PEN 17 UNIT SC (17:40)
[2019-02-23] MEDS: Aspirin E.C. 81 MG Tablet PO (20:48)
[2019-02-23 21:06] LABS: Bedside Glucose 393 mg/dL (70-110)
[2019-02-24] MEDS: Umeclidinium Bromide Inhaler 1 PUFF IH (05:52)
[2019-02-24] MEDS: CEFUROXIME AXETIL 250 MG TABLET 500 MG PO (05:52)
[2019-02-24] MEDS: Fluticasone/Salmeterol 232-14 Inhaler 1 PUFF IH ×2 (05:52→18:11)
[2019-02-24] MEDS: Bumetanide 0.5 MG Tablet 1 MG PO ×2 (05:52→13:40)
[2019-02-24] MEDS: Levothyroxine 88 MCG Tablet PO (05:53)
[2019-02-24] MEDS: Senna/Docusate Sodium 1 Tablet PO ×2 (05:53→17:45)
[2019-02-24] MEDS: Calcitriol 0.25 MCG Capsule PO (05:53)
[2019-02-24 06:33] LABS: Anion Gap 5 (5-15); BUN 60 mg/dL (7-18); BUN/Creat Ratio 30.5 RATIO (10-20); Calcium,Total 8.4 mg/dL (8.5-10.1); Chloride 106 mmol/L (98-107); Creatinine, Serum 1.97 mg/dL (0.55-1.02); EST Glomerular Filtration Rate 26 mL/min (>60); Est Glom Filt Rate - Afr Amer 32 mL/min (>60); Estimated Creatinine Clearance 19.78 ml/min; Glucose 162 mg/dL (74-106); Sodium Level 141 mmol/L (136-145)
[2019-02-24 06:45] LABS: Bedside Glucose 145 mg/dL (70-110)
[2019-02-24 07:04] VITALS: PULSE 48; O2SAT 94
--- NOTE | 2019-02-24 08:34 | NURSING ---
New order for Azo 190mg PO BID x 3 days and D/C Mucinex.
[2019-02-24] MEDS: Multivitamins,Ther W-Minerals Tablet 1 TABLET PO (09:04)
[2019-02-24] MEDS: ALPRAZolam 0.25 MG Tablet 0.125 MG PO ×2 (09:04→21:31)
[2019-02-24] MEDS: predniSONE 10 MG Tablet PO (09:04)
--- NOTE | 2019-02-24 09:43 | CASEMGMT ---
Social Work IDT met with patient and for care plan meeting. Discussed patient doing well in therapy and ready to discharge home. is okay to transport pt home 02/27 after work - pt agreeable. Referred to [facility] PT/OT/SN. No DME needs. Plan: DC home with 02/27 with [facility] PT/OT/SN. Vicky Kerr, ARMINDA LEVINW
[2019-02-24 11:11] LABS: Bedside Glucose 242 mg/dL (70-110)
[2019-02-24] MEDS: Glucerna Shake 120 ML LIQUID 60 ML PO ×3 (11:56→21:33)
[2019-02-24] MEDS: Insulin Lispro 100 UNIT/ML INSULN.PEN 17 UNIT SC ×2 (12:00→17:43)
[2019-02-24 15:28] VITALS: BP 178/70; PULSE 56; RESP 18; TEMP 36.9; O2SAT 92
[2019-02-24 17:10] LABS: Bedside Glucose 263 mg/dL (70-110)
[2019-02-24 21:16] LABS: Bedside Glucose 195 mg/dL (70-110)
[2019-02-24] MEDS: Aspirin E.C. 81 MG Tablet PO (21:32)
--- NOTE | 2019-02-24 23:20 | PCM.DC ---
- Discharge Diagnoses Current Active Problems: Current Active and Chronic Problems (Last Updated 02/17/19 @ 08:52 by JOSE ANGEL Null) Debility (Acute) Shortness of breath (Acute) Acute on chronic diastolic heart failure (Acute) COPD exacerbation (Acute) Stage 4 chronic kidney disease (Chronic) Atrial fibrillation with rapid ventricular response (Chronic) Hypertension (Chronic) Coronary artery disease (Chronic) Pulmonary hypertension (Chronic) Diabetes mellitus (Chronic) Hypothyroidism (Chronic) Obstructive sleep apnea (Chronic) Diabetic foot ulcer (Chronic) You will use the following diet at home:: No restrictions, Regular Your food should be the consistency of: Regular Your liquids should be the consistency of: Regular/Thin Discharge Activity: Return to Normal Activity, May Shower, Use Walker Weight Bearing Status: Weight bearing as tolerated Call your doctor if you observe: Fever of 101 or Higher, Inability to urinate, Inability to have a bowel movement, Shortness of breath, Chest pain, Uncontrolled pain Allergies/Adverse Reactions: Allergies dronedarone [From Multaq] Allergy (Severe, Verified 02/10/19 15:50) difficulty breathing dronedarone HCl [From Multaq] Allergy (Verified 02/10/19 15:50) Other unable to breath levofloxacin [From Levaquin] Adverse Reaction (Severe, Verified 02/10/19 15:50) hallucinations, hot flashes quinapril [From Accupril] Adverse Reaction (Severe, Verified 02/10/19 15:50) near syncope cortisone Adverse Reaction (Intermediate, Verified 02/10/19 15:50) swelling hydralazine Adverse Reaction (Intermediate, Verified 02/10/19 15:50) weakness Beta-Blockers (Beta-Adrenergic Bloc Adverse Reaction (Verified 02/10/19 15:50) Other WHEEZING, shaking, passes out CARDURA Allergy (Uncoded 02/10/19 15:50) Other PT NOT SURE- POSSIBLE SWELLING NORVASC Allergy (Uncoded 02/10/19 15:50) Swelling SCALLOPS Allergy (Uncoded 02/10/19 15:50) Swelling SULFA Allergy (Uncoded 02/10/19 15:50) Other SPOTS IN MOUTH/SORE MOUTH ATIVAN Adverse Reaction (Uncoded 02/10/19 15:50) Other HALLUCINATIONS METATOPOLOL TARTATE Adverse Reaction (Uncoded 02/10/19 15:50) Other Medications to take at Discharge Albuterol Inhaler [Ventolin Hfa] 2 puff INHALATION Q4H PRN PRN #1 inhaler 10/27/14 Aspirin E.C. [Ecotrin] 81 mg PO QHS 01/07/18 Multivit-Min/Iron/Folic/Lutein [Centrum Silver Women Tablet] 1 tab PO DAILY 06/22/18 levothyroxine 88 mcg tablet 88 mcg PO DAILY 30 Days #90 tab 07/27/18 Warfarin Sodium 3 mg PO SUWETHFRSA 11/23/18 Warfarin Sodium [Coumadin] 4 mg PO MOTU 11/23/18 Insulin Glargine [Lantus SoloStar Pen] 35 units SUBCUT DAILY 01/10/19 Fluticasone/Umeclidin/Vilanter [Trelegy Ellipta 100-62.5-25] 1 puff INHALATION DAILY 02/03/19 Insulin Lispro [Humalog KwikPen] 8 unit SUBCUT TIDAC 02/03/19 Calcitriol [Rocaltrol] 0.25 mcg PO MOWEFR 02/17/19 ALPRAZolam [Xanax] 0.125 mg PO BID #30 tab 02/24/19 Acetaminophen [Tylenol] 1,000 mg PO Q6H PRN PRN tablet 02/24/19 Bumetanide [Bumex] 1 mg PO BIDLX #30 tab 02/24/19 Emollient Combination No.72 [Eucerin Intensive Repair] 1 applic TOPICAL 0600,2200 lotion 02/24/19 Prednisone 10 mg PO DAILY #30 tab 02/24/19 The following prescriptions were given: Bumetanide [Bumex] 1 mg PO BIDLX #30 tab Transmission Status: Pending to [facility] #30 Prednisone 10 mg PO DAILY #30 tab Transmission Status: Pending to [facility] #30 ALPRAZolam [Xanax] 0.125 mg PO BID #30 tab Prescription Printed Orders to be completed after discharge: Prothrombin Time w/INR Time Frame: 2 Days, Facility: [facility], Location: Laboratory Primary Care Physician: Jovana Moulton MD [Primary Care Provider] - Please follow up with your Primary Care Physician in: 1 week. Test Results: Test results from this visit will be discussed in further detail at your follow-up appointment, if applicable. Please Follow Up With: Lety Ulloa DO When: 2 weeks. Please Follow Up With: Deonte Suarez When: 2 weeks. Please Follow Up With: Jovana Moulton MD Please Follow Up With: lab Please Follow Up With: Danna Blas PA When: 2 weeks. Proposed Discharge Date: 02/27/19
--- NOTE | 2019-02-24 23:22 | DS.PCM_ITS ---
Discharge Date and Diagnosis - Problem List Patient Problems: Active and Suspected Problems (Last Updated 02/17/19 @ 08:52 by JOSE ANGEL Null) Debility (Acute) Shortness of breath (Acute) Acute on chronic diastolic heart failure (Acute) COPD exacerbation (Acute) Date of Admission: 02/17/19 Date of Discharge: 02/27/19 - Primary Discharge Diagnosis Active and Suspected Problems (Last Updated 02/17/19 @ 08:52 by JOSE ANGEL Null) Debility (Acute) Shortness of breath (Acute) Acute on chronic diastolic heart failure (Acute) COPD exacerbation (Acute) - Secondary Discharge Diagnosis Chronic Problems (Last Updated 02/17/19 @ 08:52 by JOSE ANGEL Null) Stage 4 chronic kidney disease (Chronic) Atrial fibrillation with rapid ventricular response (Chronic) Hypertension (Chronic) Coronary artery disease (Chronic) Pulmonary hypertension (Chronic) Diabetes mellitus (Chronic) Hypothyroidism (Chronic) Obstructive sleep apnea (Chronic) Diabetic foot ulcer (Chronic) Asthma (Chronic) Venous insufficiency of both lower extremities (Chronic) Chronic kidney disease (Chronic) Secondary pulmonary arterial hypertension (Chronic) Essential (primary) hypertension (Chronic) Non-rheumatic mitral valve stenosis (Chronic) 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 Angela Alexis History of mitral valve replacement with bioprosthetic valve (Chronic 09/29/14) 09/29/2014: MVR with 27 mm Medtronic tisue valve per Dr. Angela Alexis Hyperlipidemia (Chronic) Hospital Course and Treatment Imaging Results: 02/17/19 15:04 Diet: Cardiac/Low Cholesterol Food consistency:: Regular Liquid Consistency:: Regular/Thin Is pt able to select menu?: Yes Diet: Fluid Restriction Food consistency:: Regular Liquid Consistency:: Regular/Thin Fluid restriction:: 1500 mL Clinical Impression(s) from Imaging Studies Videofluoroscopic Swallow 02/19/19 13:00 IMPRESSION: Transient laryngeal penetration with thin barium but no aspiration noted. The swallow study findings were discussed with the patient by the speech pathologist at the conclusion of the examination. Please see speech pathology report for more information and recommendations. The procedure was performed by Jayme Diaz, speech therapist. Electronically Signed: Michael Loera MD at 14:49 EDT , Service support , Labs (Last 48 Hours) 02/23/19 02/23/19 02/23/19 06:51 10:51 16:47 Sodium Potassium Chloride Carbon Dioxide Anion Gap BUN Creatinine Estim Creat Clear Calc Est GFR (MDRD) Af Amer Est GFR (MDRD) Non-Af BUN/Creatinine Ratio Glucose Calcium POC Glucose 224 H 247 H 329 H 02/23/19 02/24/19 02/24/19 20:52 05:30 06:22 Sodium 141 Potassium 4.0 Chloride 106 Carbon Dioxide 30.0 Anion Gap 5 BUN 60 H Creatinine 1.97 H Estim Creat Clear Calc 19.78 Est GFR (MDRD) Af Amer 32 L Est GFR (MDRD) Non-Af 26 L BUN/Creatinine Ratio 30.5 H Glucose 162 H Calcium 8.4 L POC Glucose 393 H 145 H 02/24/19 02/24/19 02/24/19 10:51 17:00 21:03 Sodium Potassium Chloride Carbon Dioxide Anion Gap BUN Creatinine Estim Creat Clear Calc Est GFR (MDRD) Af Amer Est GFR (MDRD) Non-Af BUN/Creatinine Ratio Glucose Calcium POC Glucose 242 H 263 H 195 H Operations: None Procedures: None Summary of Care Provided: The patient is a 78 year old Female with below past medical history hospitalized for shortness of breath secondary to acute on chronic diastolic heart failure, COPD exacerbation, complicated by atrial fibrillation with rapid ventricular response, stage 4 chronic kidney disease, obstructive sleep apnea (BiPAP intolerable), admitted to TCU with debility, here for rehabilitation, strengthening, prior to discharge home with spouse. Modified barium swallow recommended regular textured, thin liquid diet. E. Coli urinary tract infection treated with Ceftin. Dr. Suarez consulted for palliative consult, resident does not want aggressive measures, if she continues to decline, consider hospice for end of life care. Discharge home with , [facility] for PT/OT/SN. Patient Problems: Active and Suspected Problems (Last Updated 02/17/19 @ 08:52 by Lisha Meneses, CIELO-C) Debility (Acute) Shortness of breath (Acute) Acute on chronic diastolic heart failure (Acute) COPD exacerbation (Acute) - Physical Exam Vital Signs Temp Pulse Resp BP Pulse Ox 98.5 F 56 L 18 178/70 H 92 02/24/19 15:28 02/24/19 15:28 02/24/19 15:28 02/24/19 15:28 02/24/19 15:28 Oxygen Flow Rate (L/min) 1 Oxygen Delivery Method Nasal Cannula Weight: 76.26 kg Body Mass Index (BMI) 29.8 Finger Stick Blood Glucose 97 Intake and Output for Last 24 Hours 02/22/19 02/23/19 02/24/19 23:59 23:59 23:59 Intake Total 1290 / 1290 660 / 660 780 / 780 Balance 1290 / 1290 660 / 660 780 / 780 Laboratory Tests Past 24 Hrs 02/24/19 05:30 Sodium 141 Potassium 4.0 Chloride 106 Carbon Dioxide 30.0 Anion Gap 5 BUN 60 H Creatinine 1.97 H Estim Creat Clear Calc 19.78 Est GFR (MDRD) Af Amer 32 L Est GFR (MDRD) Non-Af 26 L BUN/Creatinine Ratio 30.5 H Glucose 162 H Calcium 8.4 L POC Glucose 02/24/19 02/24/19 02/24/19 21:03 17:00 10:51 POC Glucose 195 H 263 H 242 H 02/24/19 06:22 POC Glucose 145 H Discharge Diet: No Restrictions Discharge Activity: Return to Normal Activity, May Shower, Use Walker Weight Bearing Status: Weight bearing as tolerated Call your doctor if you observe: Fever of 101 or Higher, Inability to urinate, Inability to have a bowel movement, Shortness of breath, Chest pain, Uncontrolled pain Home Medications: Medications to take at Discharge Albuterol Inhaler [Ventolin Hfa] 2 puff INHALATION Q4H PRN PRN #1 inhaler 10/27/14 Aspirin E.C. [Ecotrin] 81 mg PO QHS 01/07/18 Multivit-Min/Iron/Folic/Lutein [Centrum Silver Women Tablet] 1 tab PO DAILY 06/22/18 levothyroxine 88 mcg tablet 88 mcg PO DAILY 30 Days #90 tab 07/27/18 Warfarin Sodium 3 mg PO SUWETHFRSA 11/23/18 Warfarin Sodium [Coumadin] 4 mg PO MOTU 11/23/18 Insulin Glargine [Lantus SoloStar Pen] 35 units SUBCUT DAILY 01/10/19 Fluticasone/Umeclidin/Vilanter [Trelegy Ellipta 100-62.5-25] 1 puff INHALATION DAILY 02/03/19 Insulin Lispro [Humalog KwikPen] 8 unit SUBCUT TIDAC 02/03/19 Calcitriol [Rocaltrol] 0.25 mcg PO MOWEFR 02/17/19 ALPRAZolam [Xanax] 0.125 mg PO BID #30 tab 02/24/19 Acetaminophen [Tylenol] 1,000 mg PO Q6H PRN PRN tablet 02/24/19 Bumetanide [Bumex] 1 mg PO BIDLX #30 tab 02/24/19 Emollient Combination No.72 [Eucerin Intensive Repair] 1 applic TOPICAL 0600,2200 lotion 02/24/19 Prednisone 10 mg PO DAILY #30 tab 02/24/19 Following Prescrptions Were Given to Patient: Bumetanide [Bumex] 1 mg PO BIDLX #30 tab Transmission Status: Pending to [facility] #30 Prednisone 10 mg PO DAILY #30 tab Transmission Status: Pending to [facility] #30 ALPRAZolam [Xanax] 0.125 mg PO BID #30 tab Prescription Printed Other Amb Orders: Prothrombin Time w/INR Time Frame: 2 Days, Facility: [facility], Location: Laboratory Primary Care Physician: Jovana Moulton MD [Primary Care Provider] - Please follow up with your Primary Care Physician in: 1 week. Please Follow Up With: Lety Ulloa DO When: 2 weeks. Please Follow Up With: Deonte Suarez When: 2 weeks. Please Follow Up With: Jovana Moulton MD Please Follow Up With: lab Please Follow Up With: Danna Blas PA When: 2 weeks. Disposition: Home with Home Health Minutes spent on discharge:: 35 Patient Condition:: Stable Medical Necessity - Tobacco Use Smoking Status: Never smoker Tobacco Use: Non-smoker Meaningful Use Info Meaningful Use Diagnoses (Choose all that apply): None applicable
--- NOTE | 2019-02-24 23:25 | PCM.PN.HH ---
Home Health Note - Plan Overview of reason of hospitalization: The patient is a 78 year old Female with below past medical history hospitalized for shortness of breath secondary to acute on chronic diastolic heart failure, COPD exacerbation, complicated by atrial fibrillation with rapid ventricular response, stage 4 chronic kidney disease, obstructive sleep apnea (BiPAP intolerable), admitted to TCU with debility, here for rehabilitation, strengthening, prior to discharge home with spouse. Modified barium swallow recommended regular textured, thin liquid diet. E. Coli urinary tract infection treated with Ceftin. Dr. Suarez consulted for palliative consult, resident does not want aggressive measures, if she continues to decline, consider hospice for end of life care. Discharge home with , [facility] for PT/OT/SN. Problems: Patient was seen for (Last Updated 02/17/19 @ 08:52 by Lisha Meneses NP-C) Debility (Acute) Shortness of breath (Acute) Acute on chronic diastolic heart failure (Acute) COPD exacerbation (Acute) Stage 4 chronic kidney disease (Chronic) Atrial fibrillation with rapid ventricular response (Chronic) Hypertension (Chronic) Coronary artery disease (Chronic) Pulmonary hypertension (Chronic) Diabetes mellitus (Chronic) Hypothyroidism (Chronic) Obstructive sleep apnea (Chronic) Diabetic foot ulcer (Chronic) Complete List of Medical Problems (Last Updated 02/17/19 @ 08:52 by JOSE ANGEL Null) Debility (Acute) Shortness of breath (Acute) Acute on chronic diastolic heart failure (Acute) COPD exacerbation (Acute) Stage 4 chronic kidney disease (Chronic) Atrial fibrillation with rapid ventricular response (Chronic) Hypertension (Chronic) Coronary artery disease (Chronic) Pulmonary hypertension (Chronic) Diabetes mellitus (Chronic) Hypothyroidism (Chronic) Obstructive sleep apnea (Chronic) Diabetic foot ulcer (Chronic) Asthma (Chronic) Hypoglycemia due to insulin (Acute) Venous insufficiency of both lower extremities (Chronic) Chronic kidney disease (Chronic) Secondary pulmonary arterial hypertension (Chronic) Chronic diastolic (congestive) heart failure (Acute) Essential (primary) hypertension (Chronic) Non-rheumatic mitral valve stenosis (Chronic) H/O coronary 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) Atherosclerosis of coronary artery of [place] heart without angina pectoris (Chronic) Chronic ulcer of right great toe with fat layer exposed (Chronic) Traumatic ulcer of left foot with fat layer exposed (Chronic) Chronic hypoxemic respiratory failure (Chronic) Paroxysmal atrial fibrillation (Chronic) History of maze procedure (Chronic 09/29/14) History of mitral valve replacement with bioprosthetic valve (Chronic 09/29/14) Hyperlipidemia (Chronic) - Requirements and Reasons Disciplines Needed/Ordered: Mcfp, Physical Therapy Reason for Disciplines: Disease Specific Monitoring/education, Medication Management/Knowledge Deficit, Labs for Short Term Therapeutic Monitoring, Gait Training, Stair Training, Fall Prevention, Home Safety/Equipment Instruction, Balance and/or Posture Training, Transfer Training, Swallowing Exercise/Education Related To: Change in Medical Treatment Plan, Limited/Poor Endurance, Shortness of Breath with Activity, Physical Impairments, Unsteady Gait/Balance, Intractable Pain, Fall Risk Patient is unable to leave the home: Without Aid of Supportive Devices (crutches, cane, wheelchair, walker), Without the assistance of another person - Additional Disciplines Additional Disciplines Needed/Ordered: Occupational Therapy
[2019-02-25 02:16] LABS: Bedside Glucose 263 mg/dL (70-110)
[2019-02-25 05:53] LABS: Absolute Lymphocyte Count 0.92 X10^3/uL (0.83-4.51); Absolute Neutrophil Count 8.6 X10^3/uL (2.0-7.7); Basophil# 0.05 X10^3/uL; Basophil% 0.4 % (0-1); Eosinophil# 1.07 X10^3/uL; Eosinophils% 9.5 % (0-5); Hematocrit 34.6 % (37-47); Hemoglobin 10.6 g/dL (12.0-15.0); Lymphocyte # 0.92 X10^3/ul (4.0); Lymphocyte % 8.2 % (19-41); Mean Corp Hgb Conc 30.6 g/dL (32-36); Mean Corpuscular Hgb 26.2 pg (27.0-32.0); Mean Corpuscular Volume 85.6 fL (81-99); Mean Platelet Vol. 10.8 fl (6.2-12.0); Monocyte# 0.63 X10^3/uL; Monocyte% 5.6 % (0-10); NRBC Flagged by Analyzer 0 % (0-5); Neutrophil # 8.57 X10^3/uL (2.7-7.7); Neutrophil % 75.9 % (47-70); Platelet Count 132 K/mm3 (150-450); RBC Distribution Width CV 16.8 % (11.6-14.6); RBC Distribution Width SD 52.5 fl (35.1-43.9); Red Blood Count 4.04 M/mm3 (4.2-5.4); White Blood Count 11.3 K/mm3 (4.4-11.0)
[2019-02-25 06:00] LABS: International Normalized Ratio 2.3; Prothrombin Time (Protime)PT. 25.7 SECONDS (11.7-14.9)
[2019-02-25 06:06] LABS: Anion Gap 7 (5-15); BUN 59 mg/dL (7-18); BUN/Creat Ratio 28.9 RATIO (10-20); Calcium,Total 8.6 mg/dL (8.5-10.1); Chloride 106 mmol/L (98-107); Creatinine, Serum 2.04 mg/dL (0.55-1.02); EST Glomerular Filtration Rate 25 mL/min (>60); Est Glom Filt Rate - Afr Amer 30 mL/min (>60); Glucose 225 mg/dL (74-106); Potassium 4.4 mmol/L (3.5-5.1); Sodium Level 142 mmol/L (136-145)
[2019-02-25] MEDS: Senna/Docusate Sodium 1 Tablet PO ×2 (06:21→17:42)
[2019-02-25] MEDS: CEFUROXIME AXETIL 250 MG TABLET 500 MG PO (06:21)
[2019-02-25] MEDS: Bumetanide 0.5 MG Tablet 1 MG PO ×2 (06:21→13:15)
[2019-02-25] MEDS: Levothyroxine 88 MCG Tablet PO (06:21)
[2019-02-25] MEDS: Fluticasone/Salmeterol 232-14 Inhaler 1 PUFF IH ×2 (06:24→17:42)
[2019-02-25] MEDS: Glucerna Shake 120 ML LIQUID 60 ML PO ×4 (06:26→21:07)
[2019-02-25] MEDS: Umeclidinium Bromide Inhaler 1 PUFF IH (06:27)
[2019-02-25 06:36] LABS: Bedside Glucose 223 mg/dL (70-110)
[2019-02-25 06:52] VITALS: BP 174/63; PULSE 48
[2019-02-25] MEDS: Insulin Lispro 100 UNIT/ML INSULN.PEN 17 UNIT SC ×3 (08:18→17:40)
[2019-02-25] MEDS: predniSONE 10 MG Tablet PO (08:18)
[2019-02-25] MEDS: Multivitamins,Ther W-Minerals Tablet 1 TABLET PO (08:18)
[2019-02-25] MEDS: ALPRAZolam 0.25 MG Tablet 0.125 MG PO ×2 (08:19→21:06)
--- NOTE | 2019-02-25 08:28 | NURSING ---
Addendum entered by Jackie King 02/25/19 09:14: pt reports she has adverse reaction to norvasc, in past I just get swelling in legs pt still wanted to take it d/t elevated BP's. 2.5mg given per order. Will monitor leg edema. Original Note: pt noted with elevated BP's, new order to start norvasc by Dr Farias. Amiodarone had been DC'd earlier in week for Low HR per cardiology.
[2019-02-25] MEDS: amLODIPine 2.5 MG Tablet PO (09:07)
[2019-02-25 09:09] VITALS: BP 132/54; PULSE 50
[2019-02-25 11:30] LABS: Bedside Glucose 113 mg/dL (70-110)
[2019-02-25] MEDS: Tuberculin,Purif.prot.deriv. 50 TU/ML Vial 5 ML ID (12:22)
[2019-02-25 13:00] VITALS: O2SAT 94
[2019-02-25 13:23] VITALS: PULSE 56
[2019-02-25 16:00] VITALS: BP 140/66; PULSE 54; RESP 16; TEMP 36.9; O2SAT 95
[2019-02-25 17:16] LABS: Bedside Glucose 179 mg/dL (70-110)
[2019-02-25] MEDS: Aspirin E.C. 81 MG Tablet PO (21:06)
[2019-02-25 21:16] LABS: Bedside Glucose 175 mg/dL (70-110)
[2019-02-26 06:15] LABS: Bedside Glucose 78 mg/dL (70-110)
[2019-02-26] MEDS: Glucerna Shake 120 ML LIQUID 60 ML PO ×4 (06:23→21:12)
[2019-02-26] MEDS: Fluticasone/Salmeterol 232-14 Inhaler 1 PUFF IH ×2 (06:26→17:58)
[2019-02-26] MEDS: Umeclidinium Bromide Inhaler 1 PUFF IH (06:27)
[2019-02-26] MEDS: Senna/Docusate Sodium 1 Tablet PO ×2 (06:28→17:58)
[2019-02-26] MEDS: Bumetanide 0.5 MG Tablet 1 MG PO ×2 (06:28→14:18)
[2019-02-26] MEDS: Levothyroxine 88 MCG Tablet PO (06:28)
[2019-02-26] MEDS: Calcitriol 0.25 MCG Capsule PO (06:28)
[2019-02-26] MEDS: amLODIPine 2.5 MG Tablet PO (06:28)
[2019-02-26] MEDS: CEFUROXIME AXETIL 250 MG TABLET 500 MG PO (06:28)
[2019-02-26 06:29] VITALS: BP 143/68; PULSE 47
[2019-02-26 08:20] VITALS: O2SAT 99
[2019-02-26] MEDS: Multivitamins,Ther W-Minerals Tablet 1 TABLET PO (08:34)
[2019-02-26] MEDS: predniSONE 10 MG Tablet PO (08:34)
[2019-02-26] MEDS: ALPRAZolam 0.25 MG Tablet 0.125 MG PO ×2 (08:42→21:12)
[2019-02-26 09:55] LABS: Bedside Glucose 206 mg/dL (70-110)
--- NOTE | 2019-02-26 10:08 | NURSING ---
Jayme from Physical therapy reported that patient had episode of dizziness during therapy. BS 202, BP 117/45, 50, 94% RA. Patient states, That is a pretty low blood pressure for me. States after sitting and resting for a few minutes she felt better. Will continue to monitor.
[2019-02-26 10:56] LABS: Bedside Glucose 258 mg/dL (70-110)
[2019-02-26] MEDS: Insulin Lispro 100 UNIT/ML INSULN.PEN 13 UNIT SC ×2 (11:21→17:57)
--- NOTE | 2019-02-26 13:33 | NURSING ---
New order to D/C Jeff.
[2019-02-26 15:49] VITALS: BP 160/73; PULSE 61; RESP 18; TEMP 35.8; O2SAT 93
[2019-02-26 17:20] LABS: Bedside Glucose 343 mg/dL (70-110)
[2019-02-26 21:10] LABS: Bedside Glucose 434 mg/dL (70-110)
[2019-02-26] MEDS: Aspirin E.C. 81 MG Tablet PO (21:13)
[2019-02-26] MEDS: Insulin Lispro 100 UNIT/ML INSULN.PEN 10 UNIT SC (21:13)
[2019-02-27] MEDS: Bumetanide 0.5 MG Tablet 1 MG PO ×2 (05:49→13:16)
[2019-02-27] MEDS: Senna/Docusate Sodium 1 Tablet PO ×2 (05:49→17:35)
[2019-02-27] MEDS: CEFUROXIME AXETIL 250 MG TABLET 500 MG PO (05:49)
[2019-02-27] MEDS: Levothyroxine 88 MCG Tablet PO (05:49)
[2019-02-27] MEDS: Umeclidinium Bromide Inhaler 1 PUFF IH (05:50)
[2019-02-27] MEDS: Fluticasone/Salmeterol 232-14 Inhaler 1 PUFF IH ×2 (05:50→17:35)
[2019-02-27 06:51] LABS: Bedside Glucose 104 mg/dL (70-110)
[2019-02-27] MEDS: amLODIPine 2.5 MG Tablet PO (07:01)
[2019-02-27] MEDS: Insulin Lispro 100 UNIT/ML INSULN.PEN 13 UNIT SC ×2 (07:02→17:34)
[2019-02-27] MEDS: Multivitamins,Ther W-Minerals Tablet 1 TABLET PO (07:43)
[2019-02-27] MEDS: predniSONE 10 MG Tablet PO (07:43)
[2019-02-27] MEDS: ALPRAZolam 0.25 MG Tablet 0.125 MG PO (07:43)
[2019-02-27 08:49] LABS: Anion Gap 5 (5-15); BUN 67 mg/dL (7-18); BUN/Creat Ratio 34.4 RATIO (10-20); Calcium,Total 8.8 mg/dL (8.5-10.1); Chloride 107 mmol/L (98-107); Creatinine, Serum 1.95 mg/dL (0.55-1.02); EST Glomerular Filtration Rate 26 mL/min (>60); Est Glom Filt Rate - Afr Amer 32 mL/min (>60); Estimated Creatinine Clearance 19.99 ml/min; Glucose 66 mg/dL (74-106); Potassium 3.7 mmol/L (3.5-5.1); Sodium Level 142 mmol/L (136-145)
[2019-02-27 11:11] VITALS: O2SAT 95
[2019-02-27 11:20] LABS: Bedside Glucose 63 mg/dL (70-110)
[2019-02-27 11:35] LABS: Bedside Glucose 100 mg/dL (70-110)
[2019-02-27] MEDS: Glucerna Shake 120 ML LIQUID 60 ML PO ×2 (13:15→17:34)
[2019-02-27 15:22] VITALS: BP 167/61; PULSE 55; RESP 17; TEMP 36.4; O2SAT 94
[2019-02-27 17:10] LABS: Bedside Glucose 406 mg/dL (70-110)
== END 2019-02-27 18:00 | disposition home health service (06) | DRG 948 ==
PROVIDERS: Internal Medicine Nephrology; Admitting Provider Family Medicine Geriatric Medicine; Family Provider Internal Medicine; PCP Internal Medicine; Referring Provider Family Medicine Geriatric Medicine; Visit Provider Family Medicine Geriatric Medicine
DX: R53.81 Other malaise (principal); N18.4 Chronic kidney disease, stage 4 (severe); I13.0 Hypertensive heart and chronic kidney disease with heart failure and stage 1 through stage 4 chronic kidney disease, or unspecified chronic kidney disease; I50.32 Chronic diastolic (congestive) heart failure; J96.11 Chronic respiratory failure with hypoxia; J44.9 Chronic obstructive pulmonary disease, unspecified; F41.9 Anxiety disorder, unspecified; E11.22 Type 2 diabetes mellitus with diabetic chronic kidney disease; I48.0 Paroxysmal atrial fibrillation; G47.33 Obstructive sleep apnea (adult) (pediatric); I25.10 Atherosclerotic heart disease of native coronary artery without angina pectoris; E03.9 Hypothyroidism, unspecified; E78.5 Hyperlipidemia, unspecified; E11.621 Type 2 diabetes mellitus with foot ulcer; E11.51 Type 2 diabetes mellitus with diabetic peripheral angiopathy without gangrene; Z95.3 Presence of xenogenic heart valve; L97.522 Non-pressure chronic ulcer of other part of left foot with fat layer exposed; L97.512 Non-pressure chronic ulcer of other part of right foot with fat layer exposed; F32.9 Major depressive disorder, single episode, unspecified; Z95.1 Presence of aortocoronary bypass graft; E21.3 Hyperparathyroidism, unspecified; R13.10 Dysphagia, unspecified; Z99.81 Dependence on supplemental oxygen
CPT/HCPCS: 36415; 74230; 80048; 81001; 82962; 83970; 85025; 85610; 87086; 87088; 87186; 92507; 92526; 92610; 92611; 94640; 97110; 97116; 97162; 97166; 97530; 97535; 97802

== ENCOUNTER 2019-03-09 10:46 | Outpatient (RCR) | payer MEDICARE, SELFPAY ==
[2019-03-09 16:58] LABS: Prothrombin Time Fingerstick 32.3 SEC (11.9-14.4)
== END 2019-03-09 11:46 | disposition home or self-care (01) ==
LOC: LAB 10:46
PROVIDERS: Family Provider Internal Medicine; PCP Internal Medicine; Referring Provider Internal Medicine Cardiovascular Disease; Visit Provider Internal Medicine Cardiovascular Disease
DX: I48.0 Paroxysmal atrial fibrillation (principal); Z79.01 Long term (current) use of anticoagulants; Z51.81 Encounter for therapeutic drug level monitoring
CPT/HCPCS: 36416; 85610

== ENCOUNTER 2019-04-10 20:14 | Emergency (ER) | payer SELFPAY ==
[2019-03-09 11:11] VITALS: BMI 30.2
[2019-04-10 20:16] VITALS: BP 183/89; PULSE 58; RESP 12; RESP 15; TEMP 35.9; O2SAT 92; O2SAT 95; BMI 29.2
[2019-04-10 20:26] LABS: Bedside Glucose > 500 mg/dL (70-110)
--- NOTE | 2019-04-10 20:27 | EKG12_ITS ---
Test Reason : Blood Pressure : / mmHG Vent. Rate : 058 BPM Atrial Rate : 058 BPM P-R Int : 226 ms QRS Dur : 100 ms QT Int : 476 ms P-R-T Axes : -12 117 069 degrees QTc Int : 467 ms Sinus bradycardia with 1st degree A-V block Left posterior fascicular block Nonspecific ST and T wave abnormality Abnormal ECG Confirmed by CAPO IZAGUIRRE, LOIDA ([id number]), editor in chief newspaper ASUNCION BROWNLEE ([id number]) on 04/13/2019 11:43:53 AM Referred By: Confirmed By:ELSY SCANLON MD
--- NOTE | 2019-04-10 20:40 | RAD_ITS ---
STUDY: X-RAY CHEST REASON FOR EXAM: Female, 78 years old. Shortness of breath TECHNIQUE: Single AP portable view of the chest. COMPARISON: 02/10/2019. FINDINGS: The lungs are clear and expanded. There is no demonstrated pleural abnormality. There is mild cardiac enlargement. Previous median sternotomy. Prosthetic cardiac valve. Normal mediastinum and jacki. Normal visualized pulmonary arteries. Normal visualized aortic arch and descending thoracic aorta. Normal visualized thoracic spine. Normal visualized ribs, clavicles, and shoulders. There is no demonstrated abnormality of the visualized soft tissue structures of the upper abdomen. RAD/Chest 1 View (Portable) IMPRESSION: No evidence for acute chest disease. Electronically Signed: Chris Vazquez MD at 21:02 EDT , Service support ,
[2019-04-10 20:41] LABS: Absolute Lymphocyte Count 0.98 X10^3/uL (0.83-4.51); Absolute Neutrophil Count 7.2 X10^3/uL (2.0-7.7); Basophil# 0.04 X10^3/uL; Basophil% 0.5 % (0-1); Eosinophil# 0.16 X10^3/uL; Eosinophils% 1.8 % (0-5); Hematocrit 44.1 % (37-47); Hemoglobin 13.2 g/dL (12.0-15.0); Lymphocyte # 0.98 X10^3/ul (4.0); Lymphocyte % 11.1 % (19-41); Mean Corp Hgb Conc 29.9 g/dL (32-36); Mean Corpuscular Hgb 25.4 pg (27.0-32.0); Mean Platelet Vol. 11.8 fl (6.2-12.0); Monocyte# 0.45 X10^3/uL; Monocyte% 5.1 % (0-10); NRBC Flagged by Analyzer 0 % (0-5); Neutrophil # 7.15 X10^3/uL (2.7-7.7); Platelet Count 129 K/mm3 (150-450); RBC Distribution Width CV 15.9 % (11.6-14.6); RBC Distribution Width SD 49.5 fl (35.1-43.9); Red Blood Count 5.19 M/mm3 (4.2-5.4); White Blood Count 8.8 K/mm3 (4.4-11.0)
[2019-04-10] MEDS: Ondansetron 4 MG/2 ML Vial IV (20:56)
[2019-04-10 20:59] VITALS: O2SAT 95
--- NOTE | 2019-04-10 21:17 | ED.RN ---
LAB CALLED TO REPORT BS 783. NOTIFIED DR. REBOLLAR AND PRIMARY NURSE.
[2019-04-10 21:19] LABS: Anion Gap 12 (5-15); BUN 52 mg/dL (7-18); BUN/Creat Ratio 17.2 RATIO (10-20); Calcium,Total 8.5 mg/dL (8.5-10.1); Chloride 94 mmol/L (98-107); Creatinine, Serum 3.03 mg/dL (0.55-1.02); EST Glomerular Filtration Rate 16 mL/min (>60); Est Glom Filt Rate - Afr Amer 19 mL/min (>60); Estimated Creatinine Clearance 13.43 ml/min; Glucose 783 mg/dL (74-106); Potassium 4.6 mmol/L (3.5-5.1); Sodium Level 131 mmol/L (136-145)
[2019-04-10 21:20] VITALS: BP 127/64; PULSE 51; RESP 16; O2SAT 96
[2019-04-10] MEDS: Insulin Lispro 100 UNIT/ML INSULN.PEN 15 UNIT SC (22:30)
[2019-04-10 22:33] VITALS: BP 144/67; PULSE 46; RESP 17; O2SAT 97
--- NOTE | 2019-04-10 22:56 | ED.DCSUM_ITS ---
- ER Visit Summary Date of Service: 04/10/19 Chief Complaint: Syncope History of Present Illness: The patient is a 78 F presenting after syncopal episode and being found unresponsive. Patient's family state that she was at a class reunion. Patient states she started to feel dizzy and then does not recall the events following that. states he caught her as she was falling to the ground. He states she did not hit her head. EMS was called. En route they assisted her respirations with bagging. On arrival to the ED, she is now responsive and breathing on her own. She is complaining of nausea. Physical Examination: Vitals are stable. Patient is afebrile. Alert mild d istress. HEENT exam is unremarkable. Neck is supple. Lungs are clear and equal bilaterally. Heart is regular and bradycardic Abdomen is soft nontender nondistended. Extremities are unremarkable. Skin is warm and dry. No focal neurologic deficit. Remainder of exam is unremarkable. Emergency Department Course and Treatment: EKG is sinus bradycardia rate of 58. Chest x-ray shows no acute process. Patient was given Zofran IV. Patient is DNR comfort care only and is currently in hospice care. Discussed with hospice on arrival and they sent hospice nurse to evaluate her as well. CBC shows a platelet count of 129. Chemistries normal except for sodium 131, glucose 783, BUN 52, creatinine 3.03. This is elevated from baseline. Troponin 0.023. Ket ones negative. She was given insulin subcutaneously. Discussed with patient, family, hospice nurse. Patient will be admitted to inpatient hospice. Patient and family are agreeable with this plan. Disposition: Discharge to inpatient hospice Impression: Syncope, hyperglycemia This note was generated with Printed Piece dictation software. It may contain incorrect words, spelling, and punctuation that were not noted in review of the chart prior to signing ED Disposition - Plan for ED Patient: Referrals: Jovana Moulton MD [Primary Care Provider] -
[2019-04-10 23:19] VITALS: BP 125/81; PULSE 65; RESP 16; O2SAT 96
--- NOTE | 2019-04-10 23:31 | ED.RN ---
PER HOSPICE NURSE [facility] WON'T BE HERE FOR AT LEAST AN HOUR.
--- NOTE | 2019-04-11 01:05 | ED.RN ---
Patient has been sleeping while waiting for transfer back to the hospice inpatient facility. [facility] here to take her and report was given. The Hospice nurse is still at the bedside.
== END 2019-04-11 01:08 | disposition hospice, inpatient (51) ==
PROVIDERS: Emergency Provider Emergency Medicine; Family Provider Internal Medicine; PCP Internal Medicine
DX: R55 Syncope and collapse (principal); I44.5 Left posterior fascicular block; I25.10 Atherosclerotic heart disease of native coronary artery without angina pectoris; E11.22 Type 2 diabetes mellitus with diabetic chronic kidney disease; I12.9 Hypertensive chronic kidney disease with stage 1 through stage 4 chronic kidney disease, or unspecified chronic kidney disease; N18.9 Chronic kidney disease, unspecified; I50.9 Heart failure, unspecified; J44.9 Chronic obstructive pulmonary disease, unspecified; Z79.899 Other long term (current) drug therapy; Z79.4 Long term (current) use of insulin; Z79.01 Long term (current) use of anticoagulants; Z79.82 Long term (current) use of aspirin; E11.65 Type 2 diabetes mellitus with hyperglycemia
CPT/HCPCS: 71045; 80048; 82009; 82962; 84484; 85025; 93005; 96361; 96372; 96374; 99284; A4216; J2405

== ENCOUNTER → 2019-04-19 13:25 | Outpatient (CLI) | payer MEDICARE, SELFPAY ==
[2019-04-10 20:16] VITALS: BMI 29.2
[2019-04-19 14:11] LABS: Anion Gap 8 (5-15); BUN 60 mg/dL (7-18); BUN/Creat Ratio 24.7 RATIO (10-20); Calcium,Total 8.8 mg/dL (8.5-10.1); Chloride 97 mmol/L (98-107); Creatinine, Serum 2.43 mg/dL (0.55-1.02); EST Glomerular Filtration Rate 21 mL/min (>60); Est Glom Filt Rate - Afr Amer 25 mL/min (>60); Glucose 278 mg/dL (74-106); Potassium 4.2 mmol/L (3.5-5.1); Sodium Level 137 mmol/L (136-145)
== END ==
PROVIDERS: Family Provider Internal Medicine; PCP Internal Medicine; Referring Provider Family Medicine; Visit Provider Family Medicine
DX: I50.33 Acute on chronic diastolic (congestive) heart failure (principal)
CPT/HCPCS: 80048